=== PATIENT | male | born 1950 | race Caucasian/White ===

== ENCOUNTER 2016-07-26 22:06 | Emergency (ER) | payer MEDICARE, MEDICAID ==
[2016-07-26 22:15] VITALS: BP 168/102
--- NOTE | 2016-07-27 06:35 | ED ---
Queta العراقي Matthew, scribed for Raymond Spivey MD on 07/26/16 at 2314 . Lower Extremity - HPI Summary HPI Summary: A 65 y/o male presents to the ED with a rash on the right foot and toes since 5- 6 days ago. He regularly wears a plastic brace for right ankle weakness and believes the rash may be a result of constantly wearing the brace. The patient states that the rash has nearly doubled in size since this morning and affects his toes. Associated symptoms include itchiness and erythema. The rash is described as bands. The patient has PMHx of marfan's syndrome. - History of Current Complaint Chief Complaint: EDExtremityLower Stated Complaint: RIGHT FOOT COMPLAINT/RASH Hx Obtained From: Patient Onset/Duration: Still Present Severity Initially: Mild Severity Currently: Mild Pain Intensity: 0 Pain Scale Used: 0-10 Numeric Timing: Constant Associated Signs And Symptoms: Positive: Redness, Other - pruritic rash Able to Bear Weight: Yes - Allergies/Home Medications Allergies/Adverse Reactions: Allergies Allergy/AdvReac Type Severity Reaction Status Date / Time No Known Allergies Allergy Verified 04/08/16 09:25 PMH/Surg Hx/FS Hx/Imm Hx Endocrine/Hematology History: Denies: Hx Diabetes Cardiovascular History: Reports: Hx Angina, Hx Atrial Fibrillation, Hx Congenital Heart Disease - murmur, Hx Congestive Heart Failure, Hx Coronary Artery Disease, Hx Hypertension, Other Cardiovascular Problems/Disorders - cardiomyopathy Denies: Hx Pacemaker/ICD Respiratory History: Reports: Hx Asthma, Hx Pneumonia, Hx Pulmonary Embolism - possible, Other Respiratory Problems/Disorders - SOB D/T WEAKNESS GI History: Reports: Hx Hiatal Hernia, Other GI Disorders - abdominal hernia History: Reports: Hx Benign Prostatic Hyperplasia - maybe Musculoskeletal History: Reports: Hx Arthritis, Hx Back Problems, Other Musculoskeletal History - Marfan's Syndrome Sensory History: Reports: Hx Contacts or Glasses, Hx Macular Degeneration - lense implants x2 Denies: Hx Hearing Aid Opthamlomology History: Reports: Hx Contacts or Glasses, Hx Macular Degeneration - lense implants x2 Neurological History: Reports: Hx Headaches, Hx Nerve Disease, Other Neuro Impairments/Disorders - MARFAN'S SYNDROME Psychiatric History: Reports: Hx Anxiety, Hx Attention Deficit Hyperactivity Disorder, Hx Depression, Hx Panic Disorder - agorophobia, Hx Inpatient Treatment , Hx Community Mental Health Tx, Hx Bipolar Disorder - Surgical History Surgery Procedure, Year, and Place: left knee surgery, left wrist, abdominal hernia x2, cardiac cath 2009ish. dates unknown. STENTS X2 2008 Hx Anesthesia Reactions: No Infectious Disease History: No Infectious Disease History: Reports: Hx Shingles Denies: History Other Infectious Disease, Traveled Outside the [place] in Last 30 Days - Family History Known Family History: Positive: None, Cardiac Disease Family History: R & n/C - Social History Alcohol Use: Rare Alcohol Amount: 2 X YEAR Hx Substance Use: No Substance Use Type: Reports: None Hx Tobacco Use: Yes Smoking Status (MU): Former Smoker Type: Cigarettes Amount Used/How Often: 5-7/day Length of Time of Smoking/Using Tobacco: 16 years total Have You Smoked in the Last Year: No Review of Systems Constitutional: Negative Negative: Fever, Chills Eyes: Negative Negative: Erythema ENT: Negative Negative: Sore Throat Cardiovascular: Negative Negative: Chest Pain Respiratory: Negative Negative: Shortness Of Breath, Cough Gastrointestinal: Negative Negative: Abdominal Pain, Vomiting, Nausea Genitourinary: Negative Negative: dysuria, hematuria Musculoskeletal: Negative Negative: Myalgia Positive: Rash - Right Foot - between the toes and on the plantar aspect Neurological: Negative Psychological: Normal All Other Systems Reviewed And Are Negative: Yes Physical Exam Triage Information Reviewed: Yes Vital Signs On Initial Exam: Initial Vitals Temp Pulse Resp BP Pulse Ox 99.6 F 76 16 168/102 95 07/26/16 22:12 07/26/16 22:12 07/26/16 22:12 07/26/16 22:12 07/26/16 22:12 Vital Signs Reviewed: Yes Appearance: Positive: Well-Appearing, No Pain Distress Skin: Positive: Other - ERYTHEMA BETWEEN THE TOES OF THE RIGHT FOOT AND PLANTAR ASPECT; the foot is not warm touch Head/Face: Positive: Normal Head/Face Inspection Eyes: Positive: Conjunctiva Clear Neck: Positive: Supple, No Lymphadenopathy, Other: - Full ROM; No JVD Respiratory/Lung Sounds: Positive: Breath Sounds Present. Negative: Rales, Rhonchi, Stridor, Tracheal Deviation, Wheezes Cardiovascular: Positive: RRR, Other - Heart sounds normal; Intact distal pulses; The pedal pulses are 2+ and symmetric. Radial pulses are 2+ and symmetric. Negative: Murmur Abdomen Description: Positive: Nontender, Soft, Other: - No Rebound. Negative: Distended, Guarding Musculoskeletal: Negative: Edema Left, Edema Right Neurological: Positive: Alert, Oriented to Person Place, Time Psychiatric: Positive: Affect/Mood Appropriate Diagnostics - Vital Signs Vital Signs Temp Pulse Resp BP Pulse Ox 07/26/16 22:12 99.6 F 76 16 168/102 95 - Laboratory Lab Statement: Any lab studies that have been ordered have been reviewed, and results considered in the medical decision making process. Lower Extremity Course/Dx - Course Assessment/Plan: A 65 y/o male presents to the ED with a rash on the right foot and toes since 5-6 days ago. The patient had erythema between the toes and on the plantar aspect of the right foot; however the skin was not warm to touch. The patient will be discharged home on Clotrimazole and follow-up with his PCP. - Diagnoses Provider Diagnoses: Tinea manus Discharge - Discharge Plan Condition: Stable Disposition: HOME Prescriptions: Clotrimazole 1% CREAM* [Clotrimazole 1%*] 1 applic TOPICAL BID #1 tube Miconazole Nitrate (Topical) [Athletes Foot Powder] 2 % EX TID #1 jar Patient Education Materials: Skin Yeast Infection (ED) Referrals: Rey Panchal MD [Medical Doctor] - 2 Days Additional Instructions: Please follow-up with your primary care physician in 2 days. Return to the emergency department for changing or worsening symptoms The documentation as recorded by the Queta rosa Matthew accurately reflects the service I personally performed and the decisions made by , Raymond Spivey MD.
== END 2016-07-27 00:03 | disposition home or self-care (01) ==
LOC: ED 22:06
DX: B35.2 Tinea manuum (principal); R53.1 Weakness; Z87.891 Personal history of nicotine dependence; R21 Rash and other nonspecific skin eruption
CPT/HCPCS: 99282

== ENCOUNTER 2016-12-07 15:35 | Inpatient (IN) | payer MEDICARE, MEDICAID ==
[2016-12-07] MEDS ORDERED: Diltiazem IV* 5 MG/ML 5 ML VIAL (for loading dose/IV Push) (25 MG) IV SLOW PU ONE (16:18)
[2016-12-07] MEDS ORDERED: Aspirin Low Dose CHEW TAB* 81 MG PO ONE (16:21)
[2016-12-07] MEDS: NS 0.9% 1000 ML* 1,000 ML IV SCH ×2 (16:27→21:11)
[2016-12-07 16:35] LABS: Hematocrit 28 % (42-52); Hemoglobin 9.1 g/dl (14.0-18.0); Mean Corpuscular HGB Conc 33 g/dl (31-36); Mean Corpuscular Hemoglobin 29 pg (27-31); Mean Corpuscular Volume 86 fL (80-94); Mean Platelet Volume 8 um3 (7.4-10.4); Red Cell Distribution Width 16 % (10.5-15); White Blood Count 8.5 10^3/ul (3.5-10.8)
[2016-12-07 16:57] LABS: Troponin I 0.11 ng/mL (<0.04)
--- NOTE | 2016-12-07 17:00 | RAD ---
Indication: Fatigue, shortness of breath with exertion. Denies chest pain. Slight altered mental status. History of atrial fibrillation. Comparison: April 08, 2016 Technique: Upright AP 1635 hours Report: Mild linear subsegmental atelectasis at the RIGHT lung base. The lungs and pleural spaces are otherwise clear. Negative for pneumothorax. Negative for cardiomegaly. Unremarkable central pulmonary vasculature and mediastinal contours. IMPRESSION: Mild RIGHT basilar linear subsegmental atelectasis without additional acute finding.
[2016-12-07 17:02] LABS: Albumin 3.2 g/dL (3.2-5.2); BUN/Creatinine Ratio 17.6 (8-20); C Reactive Protein 121.34 mg/L (< 5.00); Calcium 8.4 mg/dL (8.6-10.3); EGFR African American 94.3 (>60); EGFR Non-African American 73.3 (>60); Globulin 2.6 g/dL (2-4); Magnesium 1.7 mg/dL (1.9-2.7); Potassium 3.8 mmol/L (3.5-5.0); Total Bilirubin 0.7 mg/dL (0.2-1.0); Total Protein 5.8 g/dL (6.4-8.9)
[2016-12-07 17:20] LABS: Urine Bacteria Absent (Absent); Urine Bilirubin Negative (Negative); Urine Glucose Negative (Negative); Urine Nitrite Positive (Negative)
[2016-12-07 17:42] LABS: TSH (Thyroid Stimulating Horm) 0.3 mcIU/mL (0.34-5.60)
--- NOTE | 2016-12-07 18:21 | ED ---
Adelfo العراقي Benjamin, scribed for Garrett Mcadams MD on 12/07/16 at 1628 . Shortness of Breath - HPI Summary HPI Summary: 66yo male c/o weakness and SOB upon exertion for several days. Drinking water seems to help. Weakness and SOB are still slightly present. Pt denies CP. Pt has hx of Afib, but is not on a blood thinner. PMHx also includes stents x2 and HTN. - History of Current Complaint Chief Complaint: EDWeakness Time Seen by Provider: 12/07/16 16:06 Hx Obtained From: Patient Onset/Duration: Gradual Onset, Lasting Days, Still Present Timing: Constant Current Severity: Mild Dyspnea At: Exertion Aggrevating Factors: Nothing Associated Signs & Symptoms: Negative - Allergy/Home Medications Allergies/Adverse Reactions: Allergies Allergy/AdvReac Type Severity Reaction Status Date / Time No Known Allergies Allergy Verified 12/07/16 16:27 PMH/Surg Hx/FS Hx/Imm Hx Endocrine/Hematology History: Denies: Hx Diabetes Cardiovascular History: Reports: Hx Angina, Hx Atrial Fibrillation, Hx Congenital Heart Disease - murmur, Hx Congestive Heart Failure, Hx Coronary Artery Disease, Hx Hypertension, Other Cardiovascular Problems/Disorders - cardiomyopathy Denies: Hx Pacemaker/ICD Respiratory History: Reports: Hx Asthma, Hx Pneumonia, Hx Pulmonary Embolism - possible, Other Respiratory Problems/Disorders - SOB D/T WEAKNESS GI History: Reports: Hx Hiatal Hernia, Other GI Disorders - abdominal hernia History: Reports: Hx Benign Prostatic Hyperplasia - maybe Musculoskeletal History: Reports: Hx Arthritis, Hx Back Problems, Other Musculoskeletal History - Marfan's Syndrome Sensory History: Reports: Hx Contacts or Glasses, Hx Macular Degeneration - lense implants x2 Denies: Hx Hearing Aid Opthamlomology History: Reports: Hx Contacts or Glasses, Hx Macular Degeneration - lense implants x2 Neurological History: Reports: Hx Headaches, Hx Nerve Disease, Other Neuro Impairments/Disorders - MARFAN'S SYNDROME Psychiatric History: Reports: Hx Anxiety, Hx Attention Deficit Hyperactivity Disorder, Hx Depression, Hx Panic Disorder - agorophobia, Hx Inpatient Treatment , Hx Community Mental Health Tx, Hx Bipolar Disorder - Surgical History Surgery Procedure, Year, and Place: left knee surgery, left wrist, abdominal hernia x2, cardiac cath 2009ish. dates unknown. STENTS X2 2008 Hx Anesthesia Reactions: No Infectious Disease History: No Infectious Disease History: Reports: Hx Shingles Denies: History Other Infectious Disease, Traveled Outside the [place] in Last 30 Days - Family History Known Family History: Positive: Cardiac Disease - Social History Occupation: Disabled Lives: Alone Alcohol Use: Rare Alcohol Amount: 2 X YEAR Hx Substance Use: No Substance Use Type: Reports: None Hx Tobacco Use: Yes Smoking Status (MU): Former Smoker Type: Cigarettes Amount Used/How Often: 5-7/day Length of Time of Smoking/Using Tobacco: 16 years total Have You Smoked in the Last Year: No Review of Systems Positive: Fatigue Eyes: Negative ENT: Negative Cardiovascular: Negative Negative: Chest Pain Positive: Shortness Of Breath Gastrointestinal: Negative Genitourinary: Negative Musculoskeletal: Negative Skin: Negative Positive: Weakness Psychological: Normal All Other Systems Reviewed And Are Negative: Yes Physical Exam Triage Information Reviewed: Yes Vital Signs On Initial Exam: Initial Vitals Temp Pulse Resp BP Pulse Ox 99.2 F 107 18 102/75 96 12/07/16 15:41 12/07/16 15:41 12/07/16 15:41 12/07/16 15:41 12/07/16 15:41 Vital Signs Reviewed: Yes Appearance: Positive: Well-Appearing, No Pain Distress, Well-Nourished Skin: Positive: Warm, Skin Color Reflects Adequate Perfusion, Dry Head/Face: Positive: Normal Head/Face Inspection Eyes: Positive: Normal ENT: Positive: Normal ENT inspection Neck: Positive: Supple, Nontender Respiratory/Lung Sounds: Positive: Clear to Auscultation, Breath Sounds Present Cardiovascular: Positive: IRR, Tachycardia Abdomen Description: Positive: Nontender, No Organomegaly, Soft Bowel Sounds: Positive: Present Musculoskeletal: Positive: Strength/ROM Intact. Negative: Pain @, Edema Left, Edema Right Neurological: Positive: Sensory/Motor Intact, Alert, Oriented to Person Place, Time, CN Intact II-III Psychiatric: Positive: Affect/Mood Appropriate - [place] Coma Scale Coma Scale Total: 15 Diagnostics - Vital Signs Vital Signs Temp Pulse Resp BP Pulse Ox 12/07/16 15:46 99.2 F 107 18 102/75 98 12/07/16 15:41 99.2 F 107 18 102/75 96 - Laboratory Lab Results: Lab Results 12/07/16 12/07/16 12/07/16 Range/Units 16:25 16:25 16:25 WBC 8.5 (3.5-10.8) 10^3/ul RBC 3.20 L (4.0-5.4) 10^6/ul Hgb 9.1 L (14.0-18.0) g/dl Hct 28 L (42-52) % MCV 86 (80-94) fL MCH 29 (27-31) pg MCHC 33 (31-36) g/dl RDW 16 H (10.5-15) % Plt Count 176 (150-450) 10^3/ul MPV 8 (7.4-10.4) um3 Neut % (Auto) 78.6 (38-83) % Lymph % (Auto) 11.7 L (25-47) % [place] % (Auto) 8.6 (1-9) % Eos % (Auto) 0.4 (0-6) % Baso % (Auto) 0.7 (0-2) % Absolute Neuts (auto) 6.7 (1.5-7.7) 10^3/ul Absolute Lymphs (auto) 1.0 (1.0-4.8) 10^3/ul Absolute Monos (auto) 0.7 (0-0.8) 10^3/ul Absolute Eos (auto) 0 (0-0.6) 10^3/ul Absolute Basos (auto) 0.1 (0-0.2) 10^3/ul Absolute Nucleated RBC 0 10^3/ul Nucleated RBC % 0 INR (Anticoag Therapy) 1.04 (0.89-1.11) APTT 29.1 (26.0-36.3) seconds D-Dimer, Quantitative 448 H (Less Than 230) ng/mL Sodium 134 (133-145) mmol/L Potassium 3.8 (3.5-5.0) mmol/L Chloride 100 L (101-111) mmol/L Carbon Dioxide 28 (22-32) mmol/L Anion Gap 6 (2-11) mmol/L BUN 18 (6-24) mg/dL Creatinine 1.02 (0.67-1.17) mg/dL Est GFR ( Amer) 94.3 (>60) Est GFR (Non-Af Amer) 73.3 (>60) BUN/Creatinine Ratio 17.6 (8-20) Glucose 89 (70-100) mg/dL Lactic Acid (0.5-2.0) mmol/L Calcium 8.4 L (8.6-10.3) mg/dL Magnesium 1.7 L (1.9-2.7) mg/dL Total Bilirubin 0.70 (0.2-1.0) mg/dL AST 16 (13-39) U/L ALT 8 (7-52) U/L Alkaline Phosphatase 67 (34-104) U/L Total Creatine Kinase 112 (10-223) U/L CK-MB (CK-2) 2.1 (0.6-6.3) ng/mL Troponin I 0.11 H* (<0.04) ng/mL C-Reactive Protein 121.34 H (< 5.00) mg/L B-Natriuretic Peptide ( - 100) pg/mL Total Protein 5.8 L (6.4-8.9) g/dL Albumin 3.2 (3.2-5.2) g/dL Globulin 2.6 (2-4) g/dL Albumin/Globulin Ratio 1.2 (1-3) Lipase 23 (11.0-82.0) U/L TSH 0.30 L (0.34-5.60) mcIU/mL Free T4 Pending Free T3 Pending Urine Color Urine Appearance Urine pH (5-9) Ur Specific [place] (1.010-1.030) Urine Protein (Negative) Urine Ketones (Negative) Urine Blood (Negative) Urine Nitrate (Negative) Urine Bilirubin (Negative) Urine Urobilinogen (Negative) Ur Leukocyte Esterase (Negative) Urine WBC (Auto) (Absent) Urine RBC (Auto) (Absent) Ur Squamous Epith Cells (Absent) Urine Bacteria (Absent) Urine Glucose (Negative) Urine Ascorbic Acid (Negative) 12/07/16 12/07/16 12/07/16 Range/Units 16:25 16:25 17:07 WBC (3.5-10.8) 10^3/ul RBC (4.0-5.4) 10^6/ul Hgb (14.0-18.0) g/dl Hct (42-52) % MCV (80-94) fL MCH (27-31) pg MCHC (31-36) g/dl RDW (10.5-15) % Plt Count (150-450) 10^3/ul MPV (7.4-10.4) um3 Neut % (Auto) (38-83) % Lymph % (Auto) (25-47) % [place] % (Auto) (1-9) % Eos % (Auto) (0-6) % Baso % (Auto) (0-2) % Absolute Neuts (auto) (1.5-7.7) 10^3/ul Absolute Lymphs (auto) (1.0-4.8) 10^3/ul Absolute Monos (auto) (0-0.8) 10^3/ul Absolute Eos (auto) (0-0.6) 10^3/ul Absolute Basos (auto) (0-0.2) 10^3/ul Absolute Nucleated RBC 10^3/ul Nucleated RBC % INR (Anticoag Therapy) (0.89-1.11) APTT (26.0-36.3) seconds D-Dimer, Quantitative (Less Than 230) ng/mL Sodium (133-145) mmol/L Potassium (3.5-5.0) mmol/L Chloride (101-111) mmol/L Carbon Dioxide (22-32) mmol/L Anion Gap (2-11) mmol/L BUN (6-24) mg/dL Creatinine (0.67-1.17) mg/dL Est GFR ( Amer) (>60) Est GFR (Non-Af Amer) (>60) BUN/Creatinine Ratio (8-20) Glucose (70-100) mg/dL Lactic Acid 1.4 (0.5-2.0) mmol/L Calcium (8.6-10.3) mg/dL Magnesium (1.9-2.7) mg/dL Total Bilirubin (0.2-1.0) mg/dL AST (13-39) U/L ALT (7-52) U/L Alkaline Phosphatase (34-104) U/L Total Creatine Kinase (10-223) U/L CK-MB (CK-2) (0.6-6.3) ng/mL Troponin I (<0.04) ng/mL C-Reactive Protein (< 5.00) mg/L B-Natriuretic Peptide 662 H ( - 100) pg/mL Total Protein (6.4-8.9) g/dL Albumin (3.2-5.2) g/dL Globulin (2-4) g/dL Albumin/Globulin Ratio (1-3) Lipase (11.0-82.0) U/L TSH (0.34-5.60) mcIU/mL Free T4 Free T3 Urine Color Yellow Urine Appearance Cloudy Urine pH 6.0 (5-9) Ur Specific [place] 1.017 (1.010-1.030) Urine Protein 2+(100 mg/dl) H (Negative) Urine Ketones Trace H (Negative) Urine Blood 3+ H (Negative) Urine Nitrate Positive H (Negative) Urine Bilirubin Negative (Negative) Urine Urobilinogen Negative (Negative) Ur Leukocyte Esterase 3+ H (Negative) Urine WBC (Auto) 3+(>20/hpf) H (Absent) Urine RBC (Auto) 3+(>10/hpf) H (Absent) Ur Squamous Epith Cells Present H (Absent) Urine Bacteria Absent (Absent) Urine Glucose Negative (Negative) Urine Ascorbic Acid * H (Negative) Result Diagrams: 12/07/16 16:25 12/07/16 16:25 Lab Statement: Any lab studies that have been ordered have been reviewed, and results considered in the medical decision making process. - Radiology CXR Xray Interpretation: No Acute Changes Radiology Interpretation Completed By: Radiologist - EKG 1601. Cardiac Rate: Tachycardia - 104bpm EKG Rhythm: Atrial Fibrillation - rapid afib ST Segment: Normal Ectopy: None EKG Interpretation: LVH 1558. Cardiac Rate: Tachycardia - 101bpm EKG Rhythm: Atrial Fibrillation - rapid afib ST Segment: Normal Ectopy: None EKG Interpretation: LVH Course/Dx - Course Course Of Treatment: NO CRITICAL CARE TIME. DISCUSSED RESULTS WITH PATIENT/ FAMILY. ADMIT HOSPITALIST STABLE. - Diagnoses Provider Diagnoses: Rapid atrial fibrillation, Dyspnea, Weakness, Elevated troponin Discharge - Discharge Plan Condition: Stable Disposition: ADMITTED TO [facility] Referrals: No Primary Care Phys,NOPCP [Primary Care Provider] - The documentation as recorded by the Adelfo rosa Benjamin accurately reflects the service I personally performed and the decisions made by , Garrett Mcadams MD.
[2016-12-07 18:53] LABS: Free T3 2.8 pg/mL (2.5-3.9)
[2016-12-07 18:54] LABS: Free T4 0.81 ng/dL (0.61-1.12)
[2016-12-07] MEDS ORDERED: Acetaminophen TAB* 325 MG PO PRN (19:00)
[2016-12-07] MEDS ORDERED: Iodixanol* (CONTRAST) 320 MG/ML 100 ML SDV IV ONE (19:32)
[2016-12-07] MEDS ORDERED: Metoprolol Tartrate TAB* 25 MG PO SCH (20:00)
--- NOTE | 2016-12-07 20:59 | RAD ---
INDICATION: Shortness of breath with exertion. History of atrial fibrillation. History of Marfan syndrome. COMPARISON: December 07, 2016 chest radiograph and August 28, 2014 CT. TECHNIQUE: Multidetector CT images were obtained from the lung apices to the upper abdomen with 84 mL Visipaque 320 IV contrast. Pulmonary angiogram protocol. Multiplanar reformation including with maximum intensity projection. REPORT: Mild RIGHT greater than LEFT dependent basilar subsegmental atelectasis. No suspicious focal pulmonary lesions. Negative for pleural effusions or pneumothorax. Normal size range prevascular mediastinal lymph nodes measuring up to 0.7 cm short axis. Negative for thoracic lymphadenopathy. Negative for cardiomegaly or pericardial effusion. Negative for aneurysm or dissection of the thoracic aorta which is remarkable for minimal atherosclerotic plaque. Motion artifact mildly limits the CT pulmonary angiogram. Nonetheless there are no compelling filling defects within the main to the segmental and subsegmental pulmonary arteries to indicate pulmonary embolism. Unremarkable Limited images through the upper abdomen. Multilevel mild thoracic degenerative spondylosis. No thoracic fractures or suspicious focal osseous lesions evident. IMPRESSION: 1. No evidence for pulmonary embolism. 2. Mild RIGHT greater than LEFT dependent subsegmental atelectasis. 3. No compelling CT evidence for pulmonary edema. 4. Negative for aneurysm or dissection of the thoracic aorta.
[2016-12-07] MEDS: Metoprolol Tartrate TAB* 25 MG PO SCH (22:08)
[2016-12-07] MEDS: CMCS: Dabigatran CAP(NF) 150 MG CAP PO SCH (22:08)
[2016-12-07] MEDS: Divalproex DR TAB(*) 500 MG PO SCH (22:08)
[2016-12-07] MEDS: QUEtiapine TAB* 100 MG PO SCH (22:09)
[2016-12-07] MEDS: Modafinil TAB* 100 MG PO SCH (23:00)
[2016-12-08] MEDS: Metoprolol Tartrate TAB* 25 MG PO SCH ×4 (03:04→20:49)
[2016-12-08] MEDS: NS 0.9% 1000 ML* 1,000 ML IV SCH (03:51)
--- NOTE | 2016-12-08 03:54 | HP ---
ADMISSION HISTORY AND PHYSICAL: DATE OF ADMISSION: 12/07/16 PRIMARY CARE PHYSICIAN: Previously Dr. Panchal; however, currently none. EXHIBIT BUILDER: Dr. Bagley in [place], [place]. CODE STATUS: Full. MOLST completed. SOURCE OF INFORMATION: History was obtained from interview with the patient and his , review of past medical records. RELIABILITY: From patient and his are fair to poor. Records are excellent. CHIEF COMPLAINT: Shortness of breath. HISTORY OF PRESENT ILLNESS: This is a 66-year-old man with past medical history of ischemic cardiomyopathy, last checked EF 25% to 30%, atrial flutter, status post ablation in 1999, CAD status post 2 stents, last in 2007, who has been in usual state of health until approximately 1 week ago, started noticing it was more difficult to climb stairs, becoming shortness of breath. He lives in a 3-story house with two flights to enter the house, still able to ascend the stairs; however, noticed that he would becoming increasingly short of breath without chest pain and no palpitations. He noticed that he felt better if he drank a large cup of water; however, only did so on one occasion. He denied any orthopnea or PND over the last week. No increasing lower extremity edema. The night prior, the shortness of breath was consistent not increasing over the last week. The night prior to the presentation, he woke up in the middle of the night with pain in his neck, fell which was not unusual. He falls approximately 5 to 10 times per year and landed on the floor. His activated EMS and asked for the police as well as EMS because she was concerned that he could potentially be manic before evaluation. 911 was dispatched the police and not EMS at the scene, the patient refused all medical care. He was put back in bed and went back to sleep. He was seen today at [facility] where he was noted to have increasingly labored breathing. They recommended he proceed for further evaluation. However, he was brought home by a friend. At home, heard that he was referred for further evaluation, also agreed with increasing shortness of breath and brought him to the emergency room where he was found to be in atrial fibrillation with rapid ventricular rate peak checked was 115 in the emergency room. When seen by this author, he denied shortness of breath at rest, but did endorse pleuritic chest pain. His medication administration is erratic and he does frequently miss medications, although there have been no changes or more missed doses than usual. No alcohol consumption. PAST MEDICAL HISTORY: Vestibular neuronitis. Past history of UTI. History of CAD, 2 stents in 2007. Ischemic cardiomyopathy, EF 25% to 50%, bipolar disease , hypertension, ADHD, Marfan disorder, hernia repair, wrist surgery, leg surgery . MEDICATIONS: Reconciled. 1. Ramipril 5 mg daily. 2. Seroquel 100 mg in the evening. 3. Provigil 200 mg twice daily. 4. Toprol-XL 100 mg daily. 5. Lorazepam 1 mg at bedtime as needed. 6. Dumas 5/325 one to two tabs every 6 hours as needed for pain. 7. Depakote 500 mg twice daily. 8. Digoxin 0.125 mg in the morning. 9. Aspirin 81 mg daily. 10. Acetaminophen 650 mg every 4 hours as needed for pain. ALLERGIES: No known drug allergies. FAMILY HISTORY: Mother with cancer of colon. Father with CAD and [place] at age 66. SOCIAL HISTORY: Smoked regularly until 15 years prior packs per day. Rare alcohol. No illicits. Lives with his . REVIEW OF SYSTEMS: As per HPI, otherwise, all other systems negative. PHYSICAL EXAMINATION GENERAL: Lying approximately 30 degrees in bed, eating a tuna fish sandwich, interactive, talks in full sentences. No apparent distress. VITAL SIGNS: In the emergency room, 137/94, heart rate 100 when seen by this author, O2 93% on room air. Respiratory rate is 16. T-max in the emergency room is 99.2. HEENT: Oropharynx is clear. He has moist mucous membranes. Sclarea anicteric. NECK: He has elevated JVD to the angle of his jaw. No cervical lymphadenopathy. LUNGS: Clear except for rales in his right base. HEART: Has irregularly irregular heart rate. Tachycardic. No murmurs, rubs, or gallops. ABDOMEN: Soft, nontender, nondistended. EXTREMITIES: Warm and well perfused. He has trace lower extremity edema bilaterally. NEURO: He is alert and oriented x3. His cranial nerves are intact. LABORATORY DATA: Labs were reviewed, notable for hemoglobin of 9.1. D-dimer of 448, BUN and creatinine 18 and 1.02. Calcium of 1.7, troponin I of 0.11. BNP of 662. TSH 0.3, free T4 0.8. Free T3 2.8. Data reviewed: EKG: Atrial flutter, rapid ventricular rate, left axis, good R wave progression, T wave inversion in V4 through V6 with similar to November except for T-wave inversion in V4, which is new. Chest x-ray impression: Mild bibasilar linear subsegmental atelectasis without additional acute findings. ASSESSMENT AND PLAN: This is a 66-year-old man with past medical history of coronary artery disease with 2 stents, Marfan disorder, atrial flutter, status post ablation, ischemic cardiomyopathy presenting to the hospital with shortness of breath, found in atrial fibrillation with rapid ventricular response as well as elevated BNP, D-dimer and subsegmental atelectasis in his right lower lobe. 1. Shortness of breath. Possibilities include uncontrolled rate over the last week, worsening heart failure, congestive heart failure exacerbation or pulmonary embolism. Favor atrial fibrillation or pulmonary embolism at this time. Difficult to differentiate. However, in the setting of the elevated troponin as well as pleuritic chest pain, we will check CT of the chest to rule out pulmonary embolism. Restart metoprolol 100 mg XL in the morning with 25 mg q.6 hours starting this evening. May need breakthrough IV if heart rate becomes uncontrolled. 2. Elevated troponin. Again, possibly ischemic versus demand in the heart failure with atrial fibrillation. We will trend troponins, already received aspirin. Additional testing including stress based on results of troponin trend as well as heart rate control. 3. Atrial flutter. Control as in #1 with additional Toprol but now with hold parameters. The patient was previously on Xarelto, self discontinued. He is willing to start Pradaxa. He does have multiple falls per year; however, his medication administration is sporadic, will not benefit from Coumadin. For this reason, we have agreed on trial of Pradaxa. He will remain n.p.o. after midnight should he need DIVYA and cardioversion tomorrow. 4. Sick euthyroid syndrome. Decreased TSH, normal T3 and T4. 5. Systolic and diastolic heart failure. Currently, takes no diuretics. We will not start at this time; however, consider based on progress and improvement in shortness of breath. 6. Coronary artery disease. Continue aspirin and Toprol and lisinopril. 7. Bipolar disorder. He is on Depakote. 8. Attention deficit hyperactivity disorder. Continue Provigil, although notable that this may contribute to uncontrolled atrial flutter. 9. DVT prophylaxis. Pradaxa. 10. Code status is full. Completed MOLST with the patient and his / healthcare proxy. [id number]/CPS #: [id number] JANEY
[2016-12-08 05:56] LABS: Hematocrit 26 % (42-52); Hemoglobin 8.4 g/dl (14.0-18.0); Mean Corpuscular HGB Conc 32 g/dl (31-36); Mean Corpuscular Hemoglobin 28 pg (27-31); Mean Corpuscular Volume 87 fL (80-94); Mean Platelet Volume 8 um3 (7.4-10.4); Red Blood Count 2.99 10^6/ul (4.0-5.4); Red Cell Distribution Width 16 % (10.5-15); White Blood Count 8.2 10^3/ul (3.5-10.8)
[2016-12-08 06:20] LABS: EGFR African American 103.6 (>60); EGFR Non-African American 80.5 (>60); Potassium 3.3 mmol/L (3.5-5.0)
[2016-12-08 06:47] LABS: Troponin I 0.11 ng/mL (<0.04)
[2016-12-08] MEDS ORDERED: Potassium Chlor TAB* 20 MEQ TAB.ER PO ONE (08:11)
[2016-12-08] MEDS: Divalproex DR TAB(*) 500 MG PO SCH ×2 (08:31→20:49)
[2016-12-08] MEDS: Modafinil TAB* 100 MG PO SCH (08:31)
[2016-12-08] MEDS: Metoprolol Succinate XL TAB* 100 MG PO SCH (08:31)
[2016-12-08] MEDS: Digoxin TAB* 0.125 MG PO SCH (08:31)
[2016-12-08] MEDS: Aspirin EC Low Dose* 81 MG TAB.EC PO SCH (08:31)
[2016-12-08] MEDS: Ramipril CAP* 5 MG PO SCH (08:31)
[2016-12-08] MEDS: CMCS: Dabigatran CAP(NF) 150 MG CAP PO SCH ×2 (08:32→20:49)
[2016-12-08] MEDS: HYDROcodone/ACETAMIN 5-325 MG* 1 TAB PO PRN ×2 (09:10→22:34)
--- NOTE | 2016-12-08 12:32 | ECHO ---
Patient: MO GARCIA [facility] Rec#: [id number] : 1950 Date: 12/08/2016 Age: 66y Height: 187.96 cm / 74.0 in Weight: 91.17 kg / 200.9 lbs Sex: M BSA: 2.18 Room#: 437 Admit Date#: 12/07/2016 Type: Inpatient Referring: Jame Chiu MD Reading: Cuba Napoles MD Sign Painter Helper: Dana MaldonadoRDCS,RDMS Transthoracic Echocardiogram Indication: Afib BP: 131/88 HR: 97 Rhythm: A-Fib Findings History: Ischemic cardiomyopathy, CAD, PCI, HTN, AFlutter Technical Comments: The study quality is good. Completed 1210 Left Ventricle: The left ventricular chamber size is normal. Mild to moderate concentric left ventricular hypertrophy is observed. There is global hypokinesis of the left ventricle with minor regional variation. There is severely decreased left ventricular systolic function. The estimated ejection fraction is 25-30%. The assessment of diastolic function is non-diagnostic. Left Atrium: The left atrium is moderate to severely dilated. Right Ventricle: The right ventricular cavity size is normal. The right ventricular global systolic function is low normal. Right Atrium: The right atrium is mild to moderately dilated. Aortic Valve: The aortic valve is trileaflet. The aortic valve leaflets are mildly thickened. There is a trace of aortic regurgitation. There is no evidence of aortic stenosis. Mitral Valve: The mitral valve leaflets are mildly thickened. There is trace to mild mitral regurgitation. There is no evidence of mitral stenosis. Tricuspid Valve: The tricuspid valve leaflets are normal. There is mild tricuspid regurgitation. Unable to estimate the right ventricular systolic pressure. Pulmonic Valve: The pulmonic valve appears normal. There is trace to mild pulmonic regurgitation. Pericardium: There is no significant pericardial effusion. Aorta: There is mild dilatation of the ascending aorta. There is mild dilatation of the aortic arch. There is no dilation of the aortic root. Pulmonary Artery: The main pulmonary artery is not well visualized. Venous: The inferior vena cava is dilated. There is an approximate 50% respiratory change in the inferior vena cava dimension. Summary: There are no significant changes when compared to the previous study done on 09/27/15 Conclusions Mild to moderate concentric left ventricular hypertrophy is observed. There is global hypokinesis of the left ventricle with minor regional variation. There is severely decreased left ventricular systolic function. The estimated ejection fraction is 25-30%. The right ventricular global systolic function is low normal. There is a trace of aortic regurgitation. There is trace to mild mitral regurgitation. There is mild tricuspid regurgitation. Unable to estimate the right ventricular systolic pressure. There is no significant pericardial effusion. Measurements Name Value Normal Range RVIDd (AP) 2D 3.6 cm (0.9 - 2.6) RAd ISD 4CH 5.8 cm (3.4 - 4.9) RA (A4C)W 4.8 cm (2.9 - 4.6) IVSd (2D) 1.5 cm (0.6 - 1) LVPWd (2D) 1.3 cm (0.6 - 1) LVIDd (2D) 5.2 cm (3.6 - 5.4) LVIDs (2D) 4.3 cm - LV FS (2D) 18 % (25 - 45) Aortic Annulus 2.4 cm (1.4 - 2.6) Ao root diameter (2D) 3.4 cm (2.1 - 3.5) Ascending Ao 3.7 cm (2.1 - 3.4) Aortic arch 3.9 cm (1.8 - 3.4) LA dimension (AP) 2D 5.1 cm (2.3 - 3.8) LAd ISD 4CH 6.4 cm (2.9 - 5.3) LA ISD 4CH W 5.7 cm (2.5 - 4.5) Name Value Normal Range LA ESV SP 4CH (A/L) 144.19 ml - LA ESV SP 2CH (A/L) 110.18 ml - LA ESV BP (A/L) 126.64 ml - LA ESV BP (A/L) index 58 ml/m2 - LA ESV SP 4CH (MOD) 135.2 ml - LA ESV SP 2CH (MOD) 101.45 ml - Name Value Normal Range MV E-wave Vmax 0.9 m/sec - MV deceleration time 168 msec - LV lateral e' Vmax 0.12 m/sec - LV E:e' lateral ratio 7.5 ratio - Name Value Normal Range AV Vmax 1.2 m/sec - AV peak gradient 6 mmHg - LVOT Vmax 0.9 m/sec - LVOT peak gradient 3.2 mmHg - KEVIN Vmax 0.5 m/sec - Name Value Normal Range RAP 8 mmHg - IVC diameter 2.5 cm - Name Value Normal Range PV Vmax 0.8 m/sec - PV peak gradient 2.6 mmHg -
--- NOTE | 2016-12-08 17:10 | PN ---
Subjective Date of Service: 12/08/16 Interval History: Denies SOB. Walked with nursing and O2sat down to 89% on RA. HR this evening 90s. No chest discomfort Objective Active Medications: Acetaminophen (Tylenol Tab*) 650 mg PO Q4H PRN PRN Reason: FEVER/PAIN Hydrocodone Bitart/Acetaminophen ([place] 5-325 Tab*) 1 tab PO Q6H PRN PRN Reason: PAIN Last Admin: 12/08/16 09:10 Dose: 1 tab Aspirin (Aspirin Ec Low Dose*) 81 mg PO DAILY [facility] Last Admin: 12/08/16 08:31 Dose: 81 mg Cephalexin HCl (Keflex Cap*) 500 mg PO QID [facility] Dabigatran (Pradaxa Cap(Nf)) 150 mg PO BID [facility] Last Admin: 12/08/16 08:32 Dose: 150 mg Digoxin (Lanoxin Tab*) 0.125 mg PO 0900 [facility] Last Admin: 12/08/16 08:31 Dose: 0.125 mg Divalproex Sodium (Depakote Dr Tab(*)) 500 mg PO BID [facility] Last Admin: 12/08/16 08:31 Dose: 500 mg Lorazepam (Ativan Tab(*)) 1 mg PO BEDTIME PRN PRN Reason: SLEEP Metoprolol Succinate (Toprol Xl Tab*) 100 mg PO DAILY [facility] Last Admin: 12/08/16 08:31 Dose: 100 mg Metoprolol Tartrate (Lopressor Tab*) 25 mg PO Q6H [facility] Last Admin: 12/08/16 15:37 Dose: 25 mg Modafinil (Provigil Tab*) 200 mg PO 0900 [facility] Last Admin: 12/08/16 08:31 Dose: 200 mg Quetiapine Fumarate (Seroquel Tab*) 100 mg PO BEDTIME [facility] Last Admin: 12/07/16 22:09 Dose: 100 mg Ramipril (Altace Cap*) 5 mg PO DAILY [facility] Last Admin: 12/08/16 08:31 Dose: 5 mg Vital Signs 12/07/16 12/07/16 12/07/16 19:05 19:19 19:45 Temperature Pulse Rate 81 86 Respiratory Rate Blood Pressure 82/66 (mmHg) O2 Sat by Pulse 90 91 Oximetry 12/07/16 12/07/16 12/08/16 20:00 20:45 00:07 Temperature 98.5 F 100.7 F Pulse Rate 104 92 Respiratory 26 20 Rate Blood Pressure 108/64 145/80 123/69 (mmHg) O2 Sat by Pulse 96 90 Oximetry 12/08/16 12/08/16 12/08/16 03:44 04:05 07:18 Temperature 98.6 F 98.4 F Pulse Rate 97 97 Respiratory 20 32 Rate Blood Pressure 127/67 131/88 (mmHg) O2 Sat by Pulse 88 92 99 Oximetry 12/08/16 12/08/16 12/08/16 09:10 11:10 11:11 Temperature 97.8 F Pulse Rate 87 Respiratory 24 22 26 Rate Blood Pressure 153/95 (mmHg) O2 Sat by Pulse 96 Oximetry 12/08/16 12/08/16 15:05 15:34 Temperature 98.5 F Pulse Rate 94 Respiratory 18 Rate Blood Pressure 125/71 (mmHg) O2 Sat by Pulse 96 Oximetry Oxygen Devices in Use Now: None Appearance: NAD Eyes: No Scleral Icterus, PERRLA Ears/Nose/Mouth/Throat: Clear Oropharnyx, Mucous Membranes Moist Neck: - - JVD to angle of the jaw Respiratory: Symmetrical Chest Expansion and Respiratory Effort, Clear to Auscultation Cardiovascular: - - IRIR Abdominal: NL Sounds; No Tenderness; No Distention, No Hepatosplenomegaly Lymphatic: No Cervical Adenopathy Extremities: No Edema Skin: No Rash or Ulcers Neurological: Alert and Oriented x 3 Result Diagrams: 12/08/16 05:19 12/08/16 05:19 Additional Lab and Data: Lab Results 12/07/16 12/07/16 12/07/16 Range/Units 16:25 16:25 16:25 WBC 8.5 (3.5-10.8) 10^3/ul RBC 3.20 L (4.0-5.4) 10^6/ul Hgb 9.1 L (14.0-18.0) g/dl Hct 28 L (42-52) % MCV 86 (80-94) fL MCH 29 (27-31) pg MCHC 33 (31-36) g/dl RDW 16 H (10.5-15) % Plt Count 176 (150-450) 10^3/ul MPV 8 (7.4-10.4) um3 Neut % (Auto) 78.6 (38-83) % Lymph % (Auto) 11.7 L (25-47) % Coke % (Auto) 8.6 (1-9) % Eos % (Auto) 0.4 (0-6) % Baso % (Auto) 0.7 (0-2) % Absolute Neuts (auto) 6.7 (1.5-7.7) 10^3/ul Absolute Lymphs (auto) 1.0 (1.0-4.8) 10^3/ul Absolute Monos (auto) 0.7 (0-0.8) 10^3/ul Absolute Eos (auto) 0 (0-0.6) 10^3/ul Absolute Basos (auto) 0.1 (0-0.2) 10^3/ul Absolute Nucleated RBC 0 10^3/ul Nucleated RBC % 0 INR (Anticoag Therapy) 1.04 (0.89-1.11) APTT 29.1 (26.0-36.3) seconds D-Dimer, Quantitative 448 H (Less Than 230) ng/mL Sodium 134 (133-145) mmol/L Potassium 3.8 (3.5-5.0) mmol/L Chloride 100 L (101-111) mmol/L Carbon Dioxide 28 (22-32) mmol/L Anion Gap 6 (2-11) mmol/L BUN 18 (6-24) mg/dL Creatinine 1.02 (0.67-1.17) mg/dL Est GFR ( Amer) 94.3 (>60) Est GFR (Non-Af Amer) 73.3 (>60) BUN/Creatinine Ratio 17.6 (8-20) Glucose 89 (70-100) mg/dL Lactic Acid (0.5-2.0) mmol/L Calcium 8.4 L (8.6-10.3) mg/dL Magnesium 1.7 L (1.9-2.7) mg/dL Total Bilirubin 0.70 (0.2-1.0) mg/dL AST 16 (13-39) U/L ALT 8 (7-52) U/L Alkaline Phosphatase 67 (34-104) U/L Total Creatine Kinase 112 (10-223) U/L CK-MB (CK-2) 2.1 (0.6-6.3) ng/mL Troponin I 0.11 H* (<0.04) ng/mL C-Reactive Protein 121.34 H (< 5.00) mg/L B-Natriuretic Peptide ( - 100) pg/mL Total Protein 5.8 L (6.4-8.9) g/dL Albumin 3.2 (3.2-5.2) g/dL Globulin 2.6 (2-4) g/dL Albumin/Globulin Ratio 1.2 (1-3) Lipase 23 (11.0-82.0) U/L TSH 0.30 L (0.34-5.60) mcIU/mL Free T4 Pending Free T3 Pending Urine Color Urine Appearance Urine pH (5-9) Ur Specific [place] (1.010-1.030) Urine Protein (Negative) Urine Ketones (Negative) Urine Blood (Negative) Urine Nitrate (Negative) Urine Bilirubin (Negative) Urine Urobilinogen (Negative) Ur Leukocyte Esterase (Negative) Urine WBC (Auto) (Absent) Urine RBC (Auto) (Absent) Ur Squamous Epith Cells (Absent) Urine Bacteria (Absent) Urine Glucose (Negative) Urine Ascorbic Acid (Negative) 12/07/16 12/07/16 12/07/16 Range/Units 16:25 16:25 17:07 WBC (3.5-10.8) 10^3/ul RBC (4.0-5.4) 10^6/ul Hgb (14.0-18.0) g/dl Hct (42-52) % MCV (80-94) fL MCH (27-31) pg MCHC (31-36) g/dl RDW (10.5-15) % Plt Count (150-450) 10^3/ul MPV (7.4-10.4) um3 Neut % (Auto) (38-83) % Lymph % (Auto) (25-47) % Coke % (Auto) (1-9) % Eos % (Auto) (0-6) % Baso % (Auto) (0-2) % Absolute Neuts (auto) (1.5-7.7) 10^3/ul Absolute Lymphs (auto) (1.0-4.8) 10^3/ul Absolute Monos (auto) (0-0.8) 10^3/ul Absolute Eos (auto) (0-0.6) 10^3/ul Absolute Basos (auto) (0-0.2) 10^3/ul Absolute Nucleated RBC 10^3/ul Nucleated RBC % INR (Anticoag Therapy) (0.89-1.11) APTT (26.0-36.3) seconds D-Dimer, Quantitative (Less Than 230) ng/mL Sodium (133-145) mmol/L Potassium (3.5-5.0) mmol/L Chloride (101-111) mmol/L Carbon Dioxide (22-32) mmol/L Anion Gap (2-11) mmol/L BUN (6-24) mg/dL Creatinine (0.67-1.17) mg/dL Est GFR ( Amer) (>60) Est GFR (Non-Af Amer) (>60) BUN/Creatinine Ratio (8-20) Glucose (70-100) mg/dL Lactic Acid 1.4 (0.5-2.0) mmol/L Calcium (8.6-10.3) mg/dL Magnesium (1.9-2.7) mg/dL Total Bilirubin (0.2-1.0) mg/dL AST (13-39) U/L ALT (7-52) U/L Alkaline Phosphatase (34-104) U/L Total Creatine Kinase (10-223) U/L CK-MB (CK-2) (0.6-6.3) ng/mL Troponin I (<0.04) ng/mL C-Reactive Protein (< 5.00) mg/L B-Natriuretic Peptide 662 H ( - 100) pg/mL Total Protein (6.4-8.9) g/dL Albumin (3.2-5.2) g/dL Globulin (2-4) g/dL Albumin/Globulin Ratio (1-3) Lipase (11.0-82.0) U/L TSH (0.34-5.60) mcIU/mL Free T4 Free T3 Urine Color Yellow Urine Appearance Cloudy Urine pH 6.0 (5-9) Ur Specific [place] 1.017 (1.010-1.030) Urine Protein 2+(100 mg/dl) H (Negative) Urine Ketones Trace H (Negative) Urine Blood 3+ H (Negative) Urine Nitrate Positive H (Negative) Urine Bilirubin Negative (Negative) Urine Urobilinogen Negative (Negative) Ur Leukocyte Esterase 3+ H (Negative) Urine WBC (Auto) 3+(>20/hpf) H (Absent) Urine RBC (Auto) 3+(>10/hpf) H (Absent) Ur Squamous Epith Cells Present H (Absent) Urine Bacteria Absent (Absent) Urine Glucose Negative (Negative) Urine Ascorbic Acid * H (Negative) Assess/Plan/Problems-Billing Assessment: 66 yo M h/o ischemic cardiomyopathy (ef 25-30%), CAD, aflutter s/p ablation ( 1999), p/w increased SOB x 1 week - Patient Problems (1) Shortness of breath Comment: Mostly resolved today with better HR control c/w increased toprol and monitor on telemetry make npo and discuss potential cardioversion although may be poor candidate ( poor med follow up, poor med adherence, severe CHF with dialated LA/RA) incentive spirometry and mobilize 2/2 atalectasis (2) Congestive heart failure Comment: chronic - combined systolic/diastolic on no diuretics monitor (3) Bipolar 1 disorder Comment: seroquel ativan PRN bedtime (4) CAD (coronary artery disease) Comment: metoprolol, ramapril, ASA (5) Troponin I above reference range Comment: suspect demand in setting of RVR TTE w/out RWMA (6) Afib Comment: metoprolol XL and tartrate digoxin check dig level tomorrow pradaxa
[2016-12-08] MEDS: QUEtiapine TAB* 100 MG PO SCH (20:49)
[2016-12-08] MEDS: Cephalexin CAP* 500 MG PO SCH (20:49)
[2016-12-08] MEDS: LORazepam TAB(*) 1 MG PO PRN (22:37)
[2016-12-08] MEDS ORDERED: Metoprolol Tartrate IV* 1 MG/ML 5 ML VIAL IV ONE (23:00)
[2016-12-08] MEDS ORDERED: LORazepam INJ* 2 MG/ML 1 ML VIAL IV PUSH ONE (23:39)
[2016-12-09] MEDS: Morphine INJ* 2 MG/ML 1 ML SYRINGE IV PRN ×2 (00:22→07:07)
[2016-12-09 00:30] LABS: Hematocrit 29 % (42-52); Hemoglobin 9.3 g/dl (14.0-18.0); Mean Corpuscular HGB Conc 32 g/dl (31-36); Mean Corpuscular Hemoglobin 28 pg (27-31); Mean Corpuscular Volume 87 fL (80-94); Mean Platelet Volume 8 um3 (7.4-10.4); Red Blood Count 3.31 10^6/ul (4.0-5.4); Red Cell Distribution Width 16 % (10.5-15); White Blood Count 8.9 10^3/ul (3.5-10.8)
[2016-12-09 00:45] LABS: BUN/Creatinine Ratio 20.2 (8-20); Calcium 8.3 mg/dL (8.6-10.3); EGFR African American 103.6 (>60); EGFR Non-African American 80.5 (>60); Potassium 4.1 mmol/L (3.5-5.0)
[2016-12-09 00:48] LABS: Troponin I 0.1 ng/mL (<0.04)
[2016-12-09] MEDS: Diltiazem DRIP* 100 MG/100 ML ADDV.BAG IVPB SCH ×2 (02:03→11:45)
[2016-12-09] MEDS: Metoprolol Tartrate TAB* 25 MG PO SCH ×3 (04:22→14:40)
[2016-12-09 06:55] LABS: BUN/Creatinine Ratio 17.2 (8-20); Calcium 8.4 mg/dL (8.6-10.3); EGFR African American 104.9 (>60); EGFR Non-African American 81.5 (>60); Magnesium 1.9 mg/dL (1.9-2.7); Potassium 3.8 mmol/L (3.5-5.0)
[2016-12-09 07:01] LABS: Digoxin 0.3 ng/ml (0.8-2.0)
--- NOTE | 2016-12-09 07:37 | RAD ---
HISTORY: Atrial flutter COMPARISONS: December 07, 2016 VIEWS:1: Single frontal portable view of the chest at 12:20 AM FINDINGS: LINES AND TUBES: None. CARDIOMEDIASTINAL SILHOUETTE: The cardiac silhouette is mildly enlarged. The cardiomediastinal silhouette is otherwise normal for portable technique. PLEURA: The costophrenic angles are sharp. No pleural abnormalities are noted. LUNG PARENCHYMA: There is a diffuse reticular pattern with indistinct pulmonary vessels. ABDOMEN: The upper abdomen is clear. There is no subphrenic gas. BONES AND SOFT TISSUES: No bone or soft tissue abnormalities are noted. IMPRESSION: PULMONARY INTERSTITIAL EDEMA
[2016-12-09] MEDS ORDERED: Furosemide IV* 10 MG/ML VIAL (40 MG) IV SLOW PU ONE (08:14)
[2016-12-09] MEDS ORDERED: Digoxin IV* 0.5 MG/2 ML AMP (0.25 MG/ML) IV SLOW PU ONE (08:40)
[2016-12-09] MEDS: Modafinil TAB* 100 MG PO SCH (09:10)
[2016-12-09] MEDS: Divalproex DR TAB(*) 500 MG PO SCH ×2 (09:10→20:56)
[2016-12-09] MEDS: Cephalexin CAP* 500 MG PO SCH ×4 (09:10→20:56)
[2016-12-09] MEDS: Aspirin EC Low Dose* 81 MG TAB.EC PO SCH (09:10)
[2016-12-09] MEDS: Digoxin TAB* 0.125 MG PO SCH (09:10)
[2016-12-09] MEDS: CMCS: Dabigatran CAP(NF) 150 MG CAP PO SCH ×2 (09:10→21:02)
[2016-12-09] MEDS: Metoprolol Succinate XL TAB* 100 MG PO SCH (09:10)
[2016-12-09] MEDS: Ramipril CAP* 5 MG PO SCH (09:10)
--- NOTE | 2016-12-09 11:20 | RAD ---
HISTORY: Atrial flutter COMPARISONS: December 08, 2016 VIEWS: 2: Frontal and lateral views of the chest. FINDINGS: CARDIOMEDIASTINAL SILHOUETTE: The cardiomediastinal silhouette is normal. BETHEL: The bethel are normal. PLEURA: The costophrenic angles are sharp. No pleural abnormalities are noted. LUNG PARENCHYMA: There is a diffuse pattern of reticular opacification. There is more focal confluent alveolar opacification of the right upper lung ABDOMEN: The upper abdomen is clear. There is no subphrenic gas. BONES AND SOFT TISSUES: No bone or soft tissue abnormalities are noted. OTHER: None. IMPRESSION: PULMONARY INTERSTITIAL EDEMA WITH MORE FOCAL CONSOLIDATION OF THE RIGHT UPPER LUNG
[2016-12-09] MEDS ORDERED: Regadenoson* 0.4 MG/5 ML SYRINGE ONE (12:14)
--- NOTE | 2016-12-09 14:40 | RAD ---
Edited for charges. INDICATION: Increased troponins known cardiac disease. COMPARISON: Comparison is made with a prior myocardial perfusion stress study from September 30, 2015. Technique: A single day myocardial perfusion stress study was performed. Initially the resting study was performed. The patient was given an intravenous injection of 10.2 mCi of technetium 99m tetrofosmin and and the heart was imaged in multiple projections. The patient returned later in the day and under the direction of Dr. Saha, the patient was given intervenous injection of Lexiscan. Subsequently the patient was given intravenous injection of 25.2 mCi of technetium 99m tetrofosmin and the heart was imaged in multiple projections. Images were reconstructed in the axial, sagittal and coronal planes and in a 3- D format. FINDINGS: There is global decreased left ventricular wall motion. The left ventricle ejection fraction is calculated to be 43%. At the time of the prior study the left ventricular ejection fraction was 28 %. Review of the images demonstrates a small area of decreased activity present in the septum on the post pharmacologic stress images which appears normal on the resting set of images most consistent with ischemic change. This appears similar to the prior study. IMPRESSION: 1. FINDINGS SUGGESTIVE OF A SMALL AREA OF ISCHEMIA IN THE SEPTUM UNCHANGED FROM THE PRIOR EXAM. 2. DECREASED LEFT VENTRICULAR EJECTION FRACTION CALCULATED TO BE 43% WHICH HAS IMPROVED FROM THE PRIOR EXAM. ASSESSMENT: Intermediate risk. Based on imaging criteria from ACC/AHA 2002 Guideline Update for the Management of Patients With Chronic Stable Angina Table 23. Noninvasive Risk Stratification. [facility]
[2016-12-09] MEDS ORDERED: Diltiazem DRIP* 100 MG/100 ML ADDV.BAG IVPB SCH (14:59)
--- NOTE | 2016-12-09 15:11 | PN ---
Subjective Date of Service: 12/09/16 Interval History: Seen with at bedside Events from overnight reviewed. Increased HR to 150s, placed on dilt gtt at 10 mg/hr This AM more SOB. Repeat CXR shows edema vs consolidation Pt denies SOB although has required titration up on NC O2 from 0 to 4L to maintain Sats >90 Objective Active Medications: Acetaminophen (Tylenol Tab*) 650 mg PO Q4H PRN PRN Reason: FEVER/PAIN Hydrocodone Bitart/Acetaminophen ([place] 5-325 Tab*) 1 tab PO Q6H PRN PRN Reason: PAIN Last Admin: 12/08/16 22:34 Dose: 1 tab Aspirin (Aspirin Ec Low Dose*) 81 mg PO DAILY [facility] Last Admin: 12/09/16 09:10 Dose: 81 mg Cephalexin HCl (Keflex Cap*) 500 mg PO QID [facility] Last Admin: 12/09/16 14:39 Dose: 500 mg Dabigatran (Pradaxa Cap(Nf)) 150 mg PO BID [facility] Last Admin: 12/09/16 09:10 Dose: 150 mg Digoxin (Lanoxin Tab*) 0.125 mg PO 0900 [facility] Last Admin: 12/09/16 09:10 Dose: 0.125 mg Divalproex Sodium (Depakote Dr Tab(*)) 500 mg PO BID [facility] Last Admin: 12/09/16 09:10 Dose: 500 mg Diltiazem HCl (Cardizem Iv Advan*) 100 mg in 100 mls @ 5 mls/hr IVPB .PER PARAMETERS [facility] PRN Reason: 5 MG/HR Lorazepam (Ativan Tab(*)) 1 mg PO BEDTIME PRN PRN Reason: SLEEP Last Admin: 12/08/16 22:37 Dose: 1 mg Metoprolol Succinate (Toprol Xl Tab*) 200 mg PO DAILY [facility] Metoprolol Tartrate (Lopressor Tab*) 25 mg PO ONCE ONE Stop: 12/09/16 22:01 Modafinil (Provigil Tab*) 200 mg PO 0900 [facility] Last Admin: 12/09/16 09:10 Dose: 200 mg Morphine Sulfate (Morphine Inj (Syringe)*) 2 mg IV Q4H PRN PRN Reason: Pain/respiratory distress Last Admin: 12/09/16 07:07 Dose: 2 mg Pneumococcal Polyvalent Vaccine (Pneumococcal Vac Polyvalent*) 0.5 ml IM .ONCE ONE Stop: 12/10/16 09:01 Quetiapine Fumarate (Seroquel Tab*) 100 mg PO BEDTIME [facility] Last Admin: 12/08/16 20:49 Dose: Not Given Ramipril (Altace Cap*) 5 mg PO DAILY [facility] Last Admin: 12/09/16 09:10 Dose: 5 mg Vital Signs 12/08/16 12/08/16 12/08/16 15:34 19:40 22:34 Temperature 98.5 F 97.8 F Pulse Rate 96 Respiratory 24 26 Rate Blood Pressure 146/86 (mmHg) O2 Sat by Pulse 94 Oximetry 12/08/16 12/08/16 12/09/16 22:37 23:43 00:22 Temperature 99.4 F Pulse Rate Respiratory 26 24 36 Rate Blood Pressure 145/97 (mmHg) O2 Sat by Pulse 91 Oximetry 12/09/16 12/09/16 12/09/16 00:34 00:37 00:44 Temperature Pulse Rate Respiratory 32 32 Rate Blood Pressure (mmHg) O2 Sat by Pulse 94 Oximetry 12/09/16 12/09/16 12/09/16 01:22 01:23 02:02 Temperature Pulse Rate Respiratory 32 32 29 Rate Blood Pressure (mmHg) O2 Sat by Pulse Oximetry 12/09/16 12/09/16 12/09/16 02:05 02:10 02:15 Temperature Pulse Rate Respiratory 30 29 34 Rate Blood Pressure 152/96 150/98 142/103 (mmHg) O2 Sat by Pulse Oximetry 12/09/16 12/09/16 12/09/16 02:30 02:45 03:00 Temperature Pulse Rate Respiratory 30 28 Rate Blood Pressure 130/97 130/94 130/91 (mmHg) O2 Sat by Pulse Oximetry 12/09/16 12/09/16 12/09/16 03:15 03:21 03:30 Temperature 98.9 F Pulse Rate 93 Respiratory 22 16 28 Rate Blood Pressure 150/105 149/104 (mmHg) O2 Sat by Pulse 95 Oximetry 12/09/16 12/09/16 12/09/16 04:00 04:05 04:30 Temperature Pulse Rate Respiratory 30 28 Rate Blood Pressure 135/89 157/100 (mmHg) O2 Sat by Pulse Oximetry 12/09/16 12/09/16 12/09/16 05:00 06:00 07:00 Temperature Pulse Rate Respiratory 31 34 Rate Blood Pressure 142/78 134/101 146/93 (mmHg) O2 Sat by Pulse Oximetry 12/09/16 12/09/16 12/09/16 07:07 07:33 08:00 Temperature 98.1 F Pulse Rate Respiratory 40 20 32 Rate Blood Pressure 138/101 (mmHg) O2 Sat by Pulse 93 Oximetry 12/09/16 12/09/16 12/09/16 08:07 09:00 09:09 Temperature Pulse Rate 102 Respiratory 32 31 Rate Blood Pressure (mmHg) O2 Sat by Pulse Oximetry 12/09/16 12/09/16 12/09/16 09:10 09:14 10:00 Temperature Pulse Rate 102 Respiratory 27 Rate Blood Pressure 154/97 171/96 (mmHg) O2 Sat by Pulse 89 Oximetry 12/09/16 12/09/16 12/09/16 11:00 11:19 12:00 Temperature 97.9 F Pulse Rate Respiratory 22 33 Rate Blood Pressure 147/96 140/83 (mmHg) O2 Sat by Pulse 92 Oximetry Oxygen Devices in Use Now: Nasal Cannula - 4L Appearance: Lying 30 deg in bed, NAD Eyes: No Scleral Icterus, PERRLA Ears/Nose/Mouth/Throat: Clear Oropharnyx, Mucous Membranes Moist Neck: Trachea Midline, - - JVD to angle of jaw Respiratory: Symmetrical Chest Expansion and Respiratory Effort, - - rales base up 1/2 Cardiovascular: - - tachy, IRIR Abdominal: NL Sounds; No Tenderness; No Distention, No Hepatosplenomegaly Lymphatic: No Cervical Adenopathy Extremities: No Edema Neurological: Alert and Oriented x 3 Result Diagrams: 12/09/16 00:17 12/09/16 05:17 Additional Lab and Data: Lab Results 12/07/16 12/07/16 12/07/16 Range/Units 16:25 16:25 16:25 WBC 8.5 (3.5-10.8) 10^3/ul RBC 3.20 L (4.0-5.4) 10^6/ul Hgb 9.1 L (14.0-18.0) g/dl Hct 28 L (42-52) % MCV 86 (80-94) fL MCH 29 (27-31) pg MCHC 33 (31-36) g/dl RDW 16 H (10.5-15) % Plt Count 176 (150-450) 10^3/ul MPV 8 (7.4-10.4) um3 Neut % (Auto) 78.6 (38-83) % Lymph % (Auto) 11.7 L (25-47) % [place] % (Auto) 8.6 (1-9) % Eos % (Auto) 0.4 (0-6) % Baso % (Auto) 0.7 (0-2) % Absolute Neuts (auto) 6.7 (1.5-7.7) 10^3/ul Absolute Lymphs (auto) 1.0 (1.0-4.8) 10^3/ul Absolute Monos (auto) 0.7 (0-0.8) 10^3/ul Absolute Eos (auto) 0 (0-0.6) 10^3/ul Absolute Basos (auto) 0.1 (0-0.2) 10^3/ul Absolute Nucleated RBC 0 10^3/ul Nucleated RBC % 0 INR (Anticoag Therapy) 1.04 (0.89-1.11) APTT 29.1 (26.0-36.3) seconds D-Dimer, Quantitative 448 H (Less Than 230) ng/mL Sodium 134 (133-145) mmol/L Potassium 3.8 (3.5-5.0) mmol/L Chloride 100 L (101-111) mmol/L Carbon Dioxide 28 (22-32) mmol/L Anion Gap 6 (2-11) mmol/L BUN 18 (6-24) mg/dL Creatinine 1.02 (0.67-1.17) mg/dL Est GFR ( Amer) 94.3 (>60) Est GFR (Non-Af Amer) 73.3 (>60) BUN/Creatinine Ratio 17.6 (8-20) Glucose 89 (70-100) mg/dL Lactic Acid (0.5-2.0) mmol/L Calcium 8.4 L (8.6-10.3) mg/dL Magnesium 1.7 L (1.9-2.7) mg/dL Total Bilirubin 0.70 (0.2-1.0) mg/dL AST 16 (13-39) U/L ALT 8 (7-52) U/L Alkaline Phosphatase 67 (34-104) U/L Total Creatine Kinase 112 (10-223) U/L CK-MB (CK-2) 2.1 (0.6-6.3) ng/mL Troponin I 0.11 H* (<0.04) ng/mL C-Reactive Protein 121.34 H (< 5.00) mg/L B-Natriuretic Peptide ( - 100) pg/mL Total Protein 5.8 L (6.4-8.9) g/dL Albumin 3.2 (3.2-5.2) g/dL Globulin 2.6 (2-4) g/dL Albumin/Globulin Ratio 1.2 (1-3) Lipase 23 (11.0-82.0) U/L TSH 0.30 L (0.34-5.60) mcIU/mL Free T4 Pending Free T3 Pending Urine Color Urine Appearance Urine pH (5-9) Ur Specific [place] (1.010-1.030) Urine Protein (Negative) Urine Ketones (Negative) Urine Blood (Negative) Urine Nitrate (Negative) Urine Bilirubin (Negative) Urine Urobilinogen (Negative) Ur Leukocyte Esterase (Negative) Urine WBC (Auto) (Absent) Urine RBC (Auto) (Absent) Ur Squamous Epith Cells (Absent) Urine Bacteria (Absent) Urine Glucose (Negative) Urine Ascorbic Acid (Negative) 12/07/16 12/07/16 12/07/16 Range/Units 16:25 16:25 17:07 WBC (3.5-10.8) 10^3/ul RBC (4.0-5.4) 10^6/ul Hgb (14.0-18.0) g/dl Hct (42-52) % MCV (80-94) fL MCH (27-31) pg MCHC (31-36) g/dl RDW (10.5-15) % Plt Count (150-450) 10^3/ul MPV (7.4-10.4) um3 Neut % (Auto) (38-83) % Lymph % (Auto) (25-47) % [place] % (Auto) (1-9) % Eos % (Auto) (0-6) % Baso % (Auto) (0-2) % Absolute Neuts (auto) (1.5-7.7) 10^3/ul Absolute Lymphs (auto) (1.0-4.8) 10^3/ul Absolute Monos (auto) (0-0.8) 10^3/ul Absolute Eos (auto) (0-0.6) 10^3/ul Absolute Basos (auto) (0-0.2) 10^3/ul Absolute Nucleated RBC 10^3/ul Nucleated RBC % INR (Anticoag Therapy) (0.89-1.11) APTT (26.0-36.3) seconds D-Dimer, Quantitative (Less Than 230) ng/mL Sodium (133-145) mmol/L Potassium (3.5-5.0) mmol/L Chloride (101-111) mmol/L Carbon Dioxide (22-32) mmol/L Anion Gap (2-11) mmol/L BUN (6-24) mg/dL Creatinine (0.67-1.17) mg/dL Est GFR ( Amer) (>60) Est GFR (Non-Af Amer) (>60) BUN/Creatinine Ratio (8-20) Glucose (70-100) mg/dL Lactic Acid 1.4 (0.5-2.0) mmol/L Calcium (8.6-10.3) mg/dL Magnesium (1.9-2.7) mg/dL Total Bilirubin (0.2-1.0) mg/dL AST (13-39) U/L ALT (7-52) U/L Alkaline Phosphatase (34-104) U/L Total Creatine Kinase (10-223) U/L CK-MB (CK-2) (0.6-6.3) ng/mL Troponin I (<0.04) ng/mL C-Reactive Protein (< 5.00) mg/L B-Natriuretic Peptide 662 H ( - 100) pg/mL Total Protein (6.4-8.9) g/dL Albumin (3.2-5.2) g/dL Globulin (2-4) g/dL Albumin/Globulin Ratio (1-3) Lipase (11.0-82.0) U/L TSH (0.34-5.60) mcIU/mL Free T4 Free T3 Urine Color Yellow Urine Appearance Cloudy Urine pH 6.0 (5-9) Ur Specific [place] 1.017 (1.010-1.030) Urine Protein 2+(100 mg/dl) H (Negative) Urine Ketones Trace H (Negative) Urine Blood 3+ H (Negative) Urine Nitrate Positive H (Negative) Urine Bilirubin Negative (Negative) Urine Urobilinogen Negative (Negative) Ur Leukocyte Esterase 3+ H (Negative) Urine WBC (Auto) 3+(>20/hpf) H (Absent) Urine RBC (Auto) 3+(>10/hpf) H (Absent) Ur Squamous Epith Cells Present H (Absent) Urine Bacteria Absent (Absent) Urine Glucose Negative (Negative) Urine Ascorbic Acid * H (Negative) Assess/Plan/Problems-Billing Assessment: 66 yo M h/o ischemic cardiomyopathy (ef 25-30%), CAD, aflutter s/p ablation ( 1999), p/w increased SOB x 1 week - Patient Problems (1) Shortness of breath Comment: Mostly resolved 12/08 with better HR control however increased O2 requirement today after afib RVR to 150s c/w increased toprol and monitor on telemetry (change Q6hr to toprol XL 200mg tomorrow) Cardiology to consult. Recommended stress test performed today. No plan for immediate cardioversion. Would likely benefit from AV julee ablation and dual chamber PPM with ICD given ischemic cardiomyop with ef<30% incentive spirometry and mobilize 2/2 atalectasis (2) Congestive heart failure Comment: decompensated with afib RVR - combined systolic/diastolic causing acute hypoxic respiratory failure on no diuretics at home lasix 40IV this AM, schedule 20IV daily. Can consider gallagher of I/I not accurate strict I/O and daily weights (3) Bipolar 1 disorder Comment: seroquel ativan PRN bedtime (4) CAD (coronary artery disease) Comment: metoprolol, ramapril, ASA (5) Troponin I above reference range Comment: suspect demand in setting of RVR TTE w/out RWMA s/p stress test 12/09, intermediate risk but unchanged from prior (6) Afib Comment: metoprolol XL from 100 to 200 mg (was receiving 200mg TDD but with short acting) digoxin 500mcg today in setting of low level 12/09 pradaxa (7) DVT prophylaxis Comment: pradaxa Status and Disposition: inpatient given hypoxic respiratory failure and afib RVR requiring diltiazem gtt
[2016-12-09] MEDS ORDERED: Furosemide IV* 10 MG/ML 2 ML VIAL (20 MG) IV SLOW PU ONE (15:58)
[2016-12-09] MEDS ORDERED: Amiodarone TAB* 200 MG PO ONE (20:00)
[2016-12-09] MEDS: QUEtiapine TAB* 100 MG PO SCH (21:01)
[2016-12-09] MEDS ORDERED: Metoprolol Tartrate TAB* 25 MG PO ONE (22:00)
[2016-12-09] MEDS: LORazepam TAB(*) 1 MG PO PRN (22:05)
--- NOTE | 2016-12-10 05:03 | CONS ---
CC: Dr. Jame Chiu MD; Dr. Bagley, [facility] * CARDIOLOGY CONSULTATION: DATE OF CONSULT: 12/09/16 REASON FOR CONSULTATION: Atrial fibrillation and cardiomyopathy. CHIEF COMPLAINT: Shortness of breath. HISTORY OF PRESENT ILLNESS: Mr. Farah is a 66-year-old gentleman with a history of paroxysmal atrial fibrillation as well as known atherosclerotic heart disease, who has been followed by Dr. Bagley as well as Dr. Bagley' s EP colleague, Dr. Sales, in [place], although it sounds like he has not been there in some time. The patient is a bit of a vague historian; but he says for several weeks, he has been having progressive exercise or activity intolerance, trouble climbing stairs due to feeling winded. He denied orthopnea or PND and he states that he perceived he was very dehydrated and started drinking more fluids and felt that things initially improved. The patient states the reason he came to the hospital is because his wanted him to come and the Hospitalist's note document orthopnea and a change in behavior (history of bipolar disorder). The patient denied ever having chest pain, pressure, heaviness. It was revealed that he stopped his anticoagulation in the past due to painful bruising and it was the pain that really had him stop his oral anticoagulant. PAST MEDICAL HISTORY: 1. The patient has a past medical history of paroxysmal atrial fibrillation ( ejection fraction at [facility] typically 25% to 30%, but according to verbal communication with Dr. Bagley and Dr. Sales, in sinus rhythm, in 2015, his ejection fraction went up to 45%). 2. Cardiomyopathy. 3. Coronary artery disease, circumflex coronary stented 2007. Catheterization , 09/01/15, showed 40% occlusion LAD, proximally 30% occlusion mid LAD, 30% occlusion second diagonal, circumflex nondominant patent stents with mild in- stent restenosis, right coronary artery dominant with a 20% occlusion, mid right coronary artery 40% occlusion distal. 4. History of paroxysmal aflutter, status post flutter ablation in 09/06/14 ( Dr. Sales). 5. Hypertension. 6. Dyslipidemia. 7. Congestive heart failure. 8. Bipolar disorder. 9. Marfan syndrome. 10. Closed head injury in the past. 11. Chronic anemia. PAST SURGICAL HISTORY: 1. Hernia repair. 2. Wrist surgery. 3. Leg surgery. 4. History of corneal and retinal issues. ALLERGIES: He has no known drug allergies. MEDICATIONS: Current inpatient medications include: 1. Tylenol p.r.n. 2. [place] 5/325 one q.6 hours p.r.n. 3. Aspirin 81 mg a day. 4. Keflex 500 mg 4 times a day. 5. Digoxin 0.125 mg a day. 6. Depakote 500 mg b.i.d. 7. Lasix 20 mg IV. 8. Ativan p.r.n. 9. Insomnia. 10. Toprol XL 200 mg a day. 11. Provigil 200 mg a day. 12. Morphine p.r.n. shortness of breath. 13. Pneumococcal vaccine given. 14. Seroquel 100 mg q.h.s. 15. Altace 5 mg a day. FAMILY HISTORY: His mother at age 62 of cancer. His father at age 66 of a myocardial infarction. SOCIAL HISTORY: The patient is , smoked until 15 years ago about half a pack a day, rare alcohol, no recreational drugs. REVIEW OF SYSTEMS: See history of present illness. Additionally, he has some ankle issues that limit him orthopedically. PHYSICAL EXAMINATION: On exam, the patient is 6 feet 2 inches, weighs 201 pounds with a BMI of 25, blood pressure 140/83, he is in AFib from the low 100s as high as 150 beats a minute. General Appearance: Tall, lean gentleman, lying at 20 degrees comfortably in the nuclear stress lab with a Ventimask on. Psychologically, pleasant and cooperative. Neurologically, awake, alert, and oriented to person, place, and time. Grossly normal sensory and motor function in the upper and lower extremities. Moves extremities well and gait not checked. Skin: Warm, dry, free of cyanosis or rashes. HEENT: Pupils are equal and round. Mucous membranes moist. Neck without appreciable increased JVP, palpable carotid pulses without bruits. Breath sounds clear with good effort. No wheezes, rales or rhonchi, but quite distant. Coronary: S1, S2. Irregularly irregular and tachycardic without appreciable murmurs. Abdomen: Flat, nondistended, active bowel sounds, soft, nontender. I did not appreciate hepatomegaly. Lower extremities show trace edema at the ankles. Some mild skin discoloration suggestive of chronic venostasis. DIAGNOSTIC STUDIES/LAB DATA: White count 8.9, hemoglobin 9.3, hematocrit 29, platelets 154 (in March and April of 2016, hematocrit ranged from 34 to a high of 45, going back to 2012, hematocrit 38.) INR 1.04, PTT 29, D-dimer 448. Sodium 133, potassium 3.8, chloride 100, bicarb 31, BUN 16, creatinine 0.93, glucose 97, calcium 8.4, AST 16, troponin on arrival 0.11, peaked at 0.12, today 0.10. C- reactive protein 121.34, BNP of 662, TSH 0.30, free T4 0.81, free T3 2.8. Urinalysis 2+ protein, trace ketones, 3+ blood, nitrite positive, leukocyte esterase 3+, 3+ white cells. STUDIES: Chest x-ray on admission, 12/07/16, right basilar sublingual atelectasis. CT of the chest and thorax, 12/07/16, negative for pulmonary embolism, atelectasis bilaterally. Echocardiogram, 12/08/16, ejection fraction 25% to 30%, mild RV dysfunction, trace aortic insufficiency, trace to mild mitral insufficiency, mild tricuspid insufficiency, PA pressure unable to estimate. Nuclear scan done this morning, small area of ischemia in the septum seen on prior exam, ejection fraction calculated at 43%. IMPRESSION AND PLAN: In summary, Mr. Farah is a 66-year-old gentleman with a history of paroxysmal atrial fibrillation and cardiomyopathy felt out of proportion to his atherosclerotic disease and related to rate presenting with atrial fibrillation of uncertain duration and his ejection fraction has again dropped, he presented in CHF. The patient has atherosclerotic heart disease as described above in the mild to moderate range, and no evidence of significant reversible disease on his nuclear scan. Issues include the patient's noncompliance and apparent intolerance to anticoagulants, difficulty with the patient's bipolar disorder with compliance as well. For the patient's atrial fibrillation, although I agree with Dr. 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 After discussion with the cilnical scientist in [place], I am recommending the following plan: Initiation of amiodarone and DIVYA-guided cardioversion. Initiation of chronic anticoagulant, one of the NOACs I think could be the safest for him and he can take full dose with his creatinine clearance. Dr. Sales and Dr. Bagley proposed once he has been cardioverted and on anticoagulants for at least a month, a Watchman left atrial appendage occluder device could be implanted and following this, chronic anticoagulation would not be obligatory and his stroke risk would be markedly diminished even if he does go back in atrial fibrillation in the future. custodial, he is young to be on amiodarone, I think it is the safest drug now and if his cardiomyopathy resolves and he maintains sinus rhythm, we could convert to a different anti-arrhythmic with less long-term effects. For the patient's atherosclerotic heart disease, his stress test is reassuring and small bump in troponins are most likely related to the atrial fibrillation and congestive heart failure. For the patient's cardiomyopathy, I would continue with beta-blockers that hopefully will be able to decrease his Lopressor dose as his amiodarone is loaded, and we can continue him on an ARB and he may need diuretics, combination of loop and spironolactone may be of benefit while his ejection fraction is diminished. We can continue the digoxin for now; but at his age, it may not do a great job in rate control and my hope is as the amiodarone loads, his rate control will improve and if we are able to cardiovert him successfully tomorrow, I would consider discontinuing the digoxin. The Provigil may not be an optimal drug for someone with paroxysmal atrial fibrillation, but we need to coordinate with the physicians that handle his bipolar medications. The patient's longstanding anemia is noted that is worsened and this has potential impact on his ability to be on anticoagulation even for a few weeks and if it has not been investigated as an outpatient, may want to be reevaluated. The urinary tract infection and elevated C-reactive protein noted. This should be tracked to ensure there is no other source of infection or inflammation. The low TSH is noted as well, this is new compared with March and any thyroid abnormalities especially hyperthyroid could also be contributing to his current presentation. This is going to be complicated by the addition of amiodarone even short term, so we will need to watch this carefully. Further recommendations will be made pending the response to his DIVYA-guided cardioversion and tolerance to the above medication adjustments. I would try to keep his potassium between 4 and 4.5 and mag above 2 as well and if able, his sodium in normal range. [id number]/[facility] #: [id number] [facility], MANHATTANIsauro
[2016-12-10 05:26] LABS: Hematocrit 32 % (42-52); Hemoglobin 10.6 g/dl (14.0-18.0); Mean Corpuscular HGB Conc 33 g/dl (31-36); Mean Corpuscular Hemoglobin 28 pg (27-31); Mean Corpuscular Volume 85 fL (80-94); Mean Platelet Volume 8 um3 (7.4-10.4); Red Blood Count 3.76 10^6/ul (4.0-5.4); Red Cell Distribution Width 16 % (10.5-15); White Blood Count 6.6 10^3/ul (3.5-10.8)
[2016-12-10 05:36] LABS: BUN/Creatinine Ratio 25.5 (8-20); Calcium 8.7 mg/dL (8.6-10.3); EGFR African American 103.6 (>60); EGFR Non-African American 80.5 (>60); Potassium 3.6 mmol/L (3.5-5.0)
[2016-12-10] MEDS ORDERED: Potassium Chlor TAB* 20 MEQ TAB.ER PO ONE (08:24)
[2016-12-10] MEDS: Metoprolol Succinate XL TAB* 200 MG TAB.XL PO SCH (09:43)
[2016-12-10] MEDS: Amiodarone TAB* 400 MG PO SCH (09:43)
[2016-12-10] MEDS: CMCS: Dabigatran CAP(NF) 150 MG CAP PO SCH ×2 (09:43→20:39)
[2016-12-10] MEDS: Digoxin TAB* 0.125 MG PO SCH (09:44)
[2016-12-10] MEDS: Cephalexin CAP* 500 MG PO SCH ×4 (09:44→20:39)
[2016-12-10] MEDS: Divalproex DR TAB(*) 500 MG PO SCH ×2 (09:45→20:39)
--- NOTE | 2016-12-10 10:04 | PN ---
Subjective Date of Service: 12/10/16 Interval History: Patient seen this morning. at bedside. He denies any SOB this morning. No chest pain. Urinated a lot yesterday. Took off NC this morning and sats currently in mid-low 80s, O2 replaced. Family History: Unchanged from Admission Social History: Unchanged from Admission Past Medical History: Unchanged from Admission Objective Active Medications: Acetaminophen (Tylenol Tab*) 650 mg PO Q4H PRN Hydrocodone Bitart/Acetaminophen ([place] 5-325 Tab*) 1 tab PO Q6H PRN Amiodarone HCl ([place]ar[place] Tab*) 400 mg PO DAILY [facility] Aspirin (Aspirin Ec Low Dose*) 81 mg PO DAILY [facility] Cephalexin HCl (Keflex Cap*) 500 mg PO QID [facility] Dabigatran (Pradaxa Cap(Nf)) 150 mg PO BID [facility] Digoxin (Lanoxin Tab*) 0.125 mg PO 0900 [facility] Divalproex Sodium (Depakote Dr Tab(*)) 500 mg PO BID [facility] Furosemide (Lasix Iv*) 20 mg IV SLOW PU DAILY [facility] Lorazepam (Ativan Tab(*)) 1 mg PO BEDTIME PRN Metoprolol Succinate (Toprol Xl Tab*) 200 mg PO DAILY [facility] Modafinil (Provigil Tab*) 200 mg PO 0900 [facility] Morphine Sulfate (Morphine Inj (Syringe)*) 2 mg IV Q4H PRN Quetiapine Fumarate (Seroquel Tab*) 100 mg PO BEDTIME [facility] Ramipril (Altace Cap*) 5 mg PO DAILY [facility] Vital Signs 12/09/16 12/09/16 12/09/16 10:00 11:00 11:19 Temperature 97.9 F Pulse Rate Respiratory 27 22 Rate Blood Pressure 171/96 147/96 (mmHg) O2 Sat by Pulse 89 Oximetry 12/10/16 12/10/16 12/10/16 07:31 07:57 09:44 Temperature 98.4 F Pulse Rate 93 122 Respiratory 20 20 Rate Blood Pressure 149/69 (mmHg) O2 Sat by Pulse 94 Oximetry Oxygen Devices in Use Now: Nasal Cannula - 2-3L Appearance: Middle-aged, M, laying in bed in NAD Eyes: No Scleral Icterus Ears/Nose/Mouth/Throat: - - Dry MM Neck: NL Appearance and Movements; NL JVP Respiratory: Symmetrical Chest Expansion and Respiratory Effort, - - Basilar rales, L>R Cardiovascular: - - IRIR Abdominal: NL Sounds; No Tenderness; No Distention Lymphatic: No Cervical Adenopathy Extremities: No Edema Skin: No Rash or Ulcers Neurological: Alert and Oriented x 3 Result Diagrams: 12/10/16 05:08 12/10/16 05:08 Assess/Plan/Problems-Billing Assessment: 66 yo M h/o ischemic cardiomyopathy (ef 25-30%), CAD, aflutter s/p ablation ( 1999), p/w increased SOB x 1 week, found to have AFib with RVR, CHF exacerbation - Patient Problems (1) Shortness of breath Current Visit: Yes Comment: Mostly resolved 12/08 with better HR control however on 12/09 HR increased and hypoxia worsened. Appreciate Cardiology consult, plan for DIVYA/Cardioversion today. Stress test unchanged from prior. c/w increased Toprol XL and Amiodarone incentive spirometry and mobilize 2/2 atalectasis (2) Congestive heart failure Current Visit: Yes Comment: decompensated with afib RVR - combined systolic/ diastolic causing acute hypoxic respiratory failure on no diuretics at home Good UOP on 12/09, continue Lasix IV 20 mg daily for now strict I/O and daily weights (3) Bipolar 1 disorder Current Visit: Yes Comment: Continue depakote and seroquel ativan PRN bedtime (4) CAD (coronary artery disease) Current Visit: Yes Comment: metoprolol, ramapril, ASA (5) Afib Current Visit: Yes Comment: Increased metoprolol XL from 100 to 200 mg (was receiving 200mg TDD but with short acting) Amiodarone loading Recheck Digoxin level today, continue prior dosing. pradaxa DIVYA/Cardioversion today, patient would benefit from watchman device as outpatient so patient can be off anticoagulation (6) DVT prophylaxis Current Visit: Yes Comment: pradaxa Status and Disposition: inpatient given hypoxic respiratory failure and afib RVR
[2016-12-10] MEDS ORDERED: KCL 10 MEQ/50 ML IVPREMIX* 10 MEQ/50 ML BAG IV ONE (10:43)
[2016-12-10 11:45] LABS: Digoxin 0.7 ng/ml (0.8-2.0)
[2016-12-10] MEDS ORDERED: fentaNYL* 50 MCG/ML 2 ML VIAL (100 MCG VIAL) ONE (12:30)
[2016-12-10] MEDS ORDERED: Midazolam* 1 MG/ML 5 ML VIAL (5 MG) ONE (12:30)
[2016-12-10] MEDS ORDERED: Flumazenil* 0.1 MG/ML 5 ML MDV ONE (12:30)
[2016-12-10] MEDS ORDERED: Lidocaine 2% VISCOUS* 15 ML UDC ONE (12:30)
[2016-12-10] MEDS ORDERED: Naloxone* 0.4 MG/ML 1 ML VIAL ONE (12:30)
--- NOTE | 2016-12-10 14:37 | TEE ---
Amended Report Patient: MO GARCIA [facility] Rec#: [id number] : 1950 Date: 12/10/2016 Age: 66y Height: 187.96 cm / 74.0 in Weight: 91.17 kg / 200.9 lbs Sex: M BSA: 2.18 Room#: 431 Admit Date#: 12/07/2016 Type: Inpatient Referring: SWAPNA GARCIA MD Performing: Rohit Borjas MD Reading: Rohit Borjas MD Ammonia Print Operator: Rebecca Castillo RN RD Nurse: Corine Shi RN Transesophageal Echocardiogram Indication: A. Flutter BP: 143/96 HR: 94 Rhythm: A-Flutter Findings History: Ischemic cardiomyopathy, CAD, PCI, HTN, AFIB/FLUTTER Technical Comments: The study quality is good. Left Ventricle: The left ventricular chamber size is normal. Mild to moderate concentric left ventricular hypertrophy is observed. There is global hypokinesis of the left ventricle with minor regional variation. There is severely decreased left ventricular systolic function. The estimated ejection fraction is 20-25%. Left Atrium: The left atrium is moderately dilated. There is mild continuous spontaneous echo contrast visualized in the left atrium cavity and appendage. The left atrial appendage velocity is mildly reduced. There is no thrombus visualized in the left atrial appendage. The NEFTALI orifice measures: 2.2 cm at 0 degrees 2.4 cm at 28 degrees 2.6 cm at 58 degrees 2.1 cm at 92 degrees 2.5 cm at 111 degrees. Right Ventricle: The right ventricular chamber size and systolic function are within normal limits. Right Atrium: The right atrium is mildly dilated. A patent foramen ovale is not demonstrated with color Doppler and agitated contrast. Aortic Valve: The aortic valve is trileaflet. There is a trace of aortic regurgitation. There is no evidence of aortic stenosis. Mitral Valve: The mitral valve leaflets appear normal. There is mild mitral regurgitation. There is no evidence of mitral stenosis. Tricuspid Valve: The tricuspid valve leaflets are normal. There is mild tricuspid regurgitation. Pulmonic Valve: The pulmonic valve appears normal. There is a trace pulmonic regurgitation. Pericardium: There is no significant pericardial effusion. Aorta: There is mild dilatation of the ascending aorta. There is mild dilatation of the aortic root. There is plaque visualized in the transverse aorta. There is plaque visualized in the descending aorta. Pulmonary Artery: The main pulmonary artery appears normal. Venous: The inferior vena cava appears normal. The pulmonary veins appear normal. 2 of 4 visualized The superior vena cava appears normal. DIVYA Procedures: All standard views were attempted within the limitations of patient tolerance and safety. History and physical as well as labs were reviewed. The patient was in a fasting state. Risks and benefits of the procedure, including alternatives, were discussed and written informed consent was obtained. The patient and/or their health care pharmaceutical service representative expressed understanding of the procedure, risks and benefits. Baseline and continuous monitoring of blood pressure, heart rate, pulse oximetry and heart rhythm was performed throughout the procedure. The appropriate time-out procedure was performed as per [facility] protocol. The patient was placed in the left lateral decubitus position. The patient received IV Midazolam with a total dose of 5 mg The patient received IV Fentanyl with a total dose of 50 mcg An oral bite block was inserted for protection of oral dentition. The multiplane transesophageal echocardiogram probe was inserted through the posterior oropharynx and advanced into the esophagus without difficulty. Multiple 2D images were obtained of the heart and its related structures. Color flow Doppler was used for evaluation. Spectral Doppler was also used. The atrial septum was interrogated with color flow Doppler. At the conclusion of the procedure the probe was removed with continuous suction without complications. The patient tolerated the procedure with no apparent complications. Contrast: Intravenous agitated saline contrast was used to assess intracardiac shunting. Image 70 Conclusions Mild to moderate concentric left ventricular hypertrophy is observed. There is severely decreased left ventricular systolic function. The estimated ejection fraction is 20-25%. The left atrium is moderately dilated. There is mild continuous spontaneous echo contrast visualized in the left atrium cavity and appendage. There is no thrombus visualized in the left atrial appendage. There is mild mitral regurgitation. There is mild tricuspid regurgitation. There is mild dilatation of the ascending aorta. There is mild dilatation of the aortic root. There is mild plaque visualized in the transverse aorta. There is plaque visualized in the descending aorta. similar to 6.27.17 Measurements Name Value Normal Range Aortic Annulus 2.3 cm (1.4 - 2.6) Ao root diameter (2D) 3.7 cm (2.1 - 3.5) Ascending Ao 3.9 cm (2.1 - 3.4)
[2016-12-10] MEDS: Modafinil TAB* 100 MG PO SCH (15:55)
[2016-12-10] MEDS: Ramipril CAP* 5 MG PO SCH (16:02)
[2016-12-10] MEDS: Furosemide IV* 10 MG/ML 2 ML VIAL (20 MG) IV SLOW PU SCH (16:02)
[2016-12-10] MEDS: Aspirin EC Low Dose* 81 MG TAB.EC PO SCH (16:03)
[2016-12-10] MEDS: Pneumococcal Vac Polyvalent* 0.5 ML VIAL IM ONE ×2 (16:10→17:04)
[2016-12-10] MEDS: HYDROcodone/ACETAMIN 5-325 MG* 1 TAB PO PRN (20:43)
[2016-12-10] MEDS: QUEtiapine TAB* 100 MG PO SCH (21:02)
[2016-12-10] MEDS: LORazepam TAB(*) 1 MG PO PRN (22:15)
--- NOTE | 2016-12-11 04:49 | CARD ---
CC: Dr. Saha; Dr. Zuniga; Dr. Bagley in [place]. * PROCEDURE NOTE: DATE OF PROCEDURE: 12/10/16 - ROOM #437 PATIENT OF: Dr. Saha. PROCEDURE: DIVYA-guided cardioversion. 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 He was noted to be in heart failure with AFib with rapid ventricular response and an EF of 25% to 30% on his echo. He has been on anticoagulation and has had rates in the 190 to 120 range on medications. A DIVYA- guided cardioversion was requested. The importance of continuing anticoagulation for at least a month after the procedure was discussed with the patient. He understands the risk of stroke. DESCRIPTION OF PROCEDURE: The patient was in a fasting state. Informed consent was obtained. He was premedicated with 5 mg of Versed and 50 mcg of fentanyl for the DIVYA which revealed no evidence of intracardiac thrombus. There was spontaneous contrast in the left atrium and left ventricle and his EF was estimated at 20% to 25%. The DIVYA was uncomplicated. An additional 2 mg of Versed was given after the DIVYA and a cardioversion was performed with a single synchronized biphasic shock of 120 joules with conversion to sinus rhythm. The patient tolerated the procedures without complications and will be observed for recovery from conscious sedation. The plan is for the patient to continue on his medications to suppress AFib and control the rate. He is to have a followup with Dr. Bagley and Dr. Zuniga for possible AFib ablation and possible placement of a left atrial appendage occlusion device. [id number]/[facility] #: [id number] [facility]
[2016-12-11 05:53] LABS: BUN/Creatinine Ratio 34.1 (8-20); Blood Urea Nitrogen 30 mg/dL (6-24); CO2 Carbon Dioxide 34 mmol/L (22-32); Calcium 8.7 mg/dL (8.6-10.3); Chloride 99 mmol/L (101-111); EGFR African American 111.8 (>60); EGFR Non-African American 86.9 (>60); Glucose 106 mg/dL (70-100); Magnesium 2.1 mg/dL (1.9-2.7); Sodium 133 mmol/L (133-145)
[2016-12-11] MEDS: Amiodarone TAB* 400 MG PO SCH (08:38)
[2016-12-11] MEDS: Modafinil TAB* 100 MG PO SCH (08:38)
[2016-12-11] MEDS: Divalproex DR TAB(*) 500 MG PO SCH ×2 (08:38→21:20)
[2016-12-11] MEDS: Cephalexin CAP* 500 MG PO SCH (08:38)
[2016-12-11] MEDS: Metoprolol Succinate XL TAB* 200 MG TAB.XL PO SCH (08:38)
[2016-12-11] MEDS: Digoxin TAB* 0.125 MG PO SCH (08:38)
[2016-12-11] MEDS: Aspirin EC Low Dose* 81 MG TAB.EC PO SCH (08:39)
[2016-12-11] MEDS: Furosemide IV* 10 MG/ML 2 ML VIAL (20 MG) IV SLOW PU SCH (08:39)
[2016-12-11] MEDS: CMCS: Dabigatran CAP(NF) 150 MG CAP PO SCH ×2 (08:39→21:20)
[2016-12-11] MEDS: Ramipril CAP* 5 MG PO SCH (08:39)
[2016-12-11] MEDS: HYDROcodone/ACETAMIN 5-325 MG* 1 TAB PO PRN ×2 (08:42→21:26)
--- NOTE | 2016-12-11 09:51 | PN ---
Subjective Date of Service: 12/11/16 Interval History: Patient seen this morning. Successful cardioversion yesterday and has remained in NSR. He denies any SOB, chest pain. says breathing has been a bit labored at times, thinks he is not steady on his feet. Family History: Unchanged from Admission Social History: Unchanged from Admission Past Medical History: Unchanged from Admission Objective Active Medications: Acetaminophen (Tylenol Tab*) 650 mg PO Q4H PRN Hydrocodone Bitart/Acetaminophen (Gasquet 5-325 Tab*) 1 tab PO Q6H PRN Amiodarone HCl (Cordarone Tab*) 400 mg PO DAILY CHRIS Aspirin (Aspirin Ec Low Dose*) 81 mg PO DAILY [facility]RIS Cephalexin HCl (Keflex Cap*) 500 mg PO QID [facility]RIS Dabigatran (Pradaxa Cap(Nf)) 150 mg PO BID [facility]RIS Digoxin (Lanoxin Tab*) 0.125 mg PO 0900 [facility] Divalproex Sodium (Depakote Dr Tab(*)) 500 mg PO BID [facility] Furosemide (Lasix Iv*) 20 mg IV SLOW PU DAILY [facility] Lorazepam (Ativan Tab(*)) 1 mg PO BEDTIME PRN Metoprolol Succinate (Toprol Xl Tab*) 200 mg PO DAILY [facility] Modafinil (Provigil Tab*) 200 mg PO 0900 [facility] Morphine Sulfate (Morphine Inj (Syringe)*) 2 mg IV Q4H PRN Quetiapine Fumarate (Seroquel Tab*) 100 mg PO BEDTIME [facility]RIS Ramipril (Altace Cap*) 5 mg PO DAILY [facility] Vital Signs 12/10/16 12/10/16 12/10/16 11:10 12:10 14:36 Temperature 97.6 F 98.4 F Pulse Rate 41 74 66 Respiratory 22 14 Rate Blood Pressure 140/80 142/91 (mmHg) O2 Sat by Pulse 97 97 Oximetry 12/10/16 12/10/16 12/10/16 15:30 19:30 19:44 Temperature Pulse Rate 66 72 Respiratory 24 16 20 Rate Blood Pressure 167/102 126/79 (mmHg) O2 Sat by Pulse 95 95 Oximetry 12/10/16 12/10/16 12/10/16 20:43 22:15 22:43 Temperature Pulse Rate Respiratory 18 16 16 Rate Blood Pressure (mmHg) O2 Sat by Pulse Oximetry 12/10/16 12/11/16 12/11/16 23:55 00:15 03:19 Temperature 99.1 F 97.4 F Pulse Rate 69 63 Respiratory 16 16 16 Rate Blood Pressure 129/83 142/83 (mmHg) O2 Sat by Pulse 91 98 Oximetry 12/11/16 12/11/16 07:35 08:42 Temperature 97.5 F Pulse Rate 66 Respiratory 20 16 Rate Blood Pressure 147/88 (mmHg) O2 Sat by Pulse 95 Oximetry Oxygen Devices in Use Now: None Appearance: Middle-aged, M, laying in bed in NAD Eyes: No Scleral Icterus Ears/Nose/Mouth/Throat: Mucous Membranes Moist Neck: NL Appearance and Movements; NL JVP Respiratory: Symmetrical Chest Expansion and Respiratory Effort, - - Trace basilar rales B/L Cardiovascular: NL Sounds; No Murmurs; No JVD, RRR Abdominal: NL Sounds; No Tenderness; No Distention Lymphatic: No Cervical Adenopathy Extremities: No Edema Skin: No Rash or Ulcers Neurological: Alert and Oriented x 3 Result Diagrams: 12/10/16 05:08 12/11/16 05:00 Assess/Plan/Problems-Billing Assessment: 66 yo M h/o ischemic cardiomyopathy (ef 25-30%), CAD, aflutter s/p ablation ( 1999), p/w increased SOB x 1 week, found to have AFib with RVR, CHF exacerbation - Patient Problems (1) Shortness of breath Current Visit: Yes Comment: Mostly resolved 12/08 with better HR control however on 12/09 HR increased and hypoxia worsened. Appreciate Cardiology consult, cardioverted on 12/10 to NSR. Stress test 12/09 unchanged from prior. c/w Toprol XL and Amiodarone, may need dose adjustments incentive spirometry and mobilize 2/2 atalectasis (2) Congestive heart failure Current Visit: Yes Comment: decompensated with afib RVR - combined systolic/ diastolic causing acute hypoxic respiratory failure on no diuretics at home Good UOP on 12/09, continue Lasix IV 20 mg daily for now strict I/O and daily weights (3) Bipolar 1 disorder Current Visit: Yes Comment: Continue depakote and seroquel ativan PRN bedtime (4) CAD (coronary artery disease) Current Visit: Yes Comment: metoprolol, ramapril, ASA (5) Afib Current Visit: Yes Comment: Toprol 200 mg daily, given this AM, may need reduction in dose now that he is back in NSR, will monitor HR Continue Amiodarone Digoxin stopped by Cardiology. pradaxa Successful DIVYA/Cardioversion 12/10, patient would benefit from watchman device as outpatient so patient can be off anticoagulation (6) DVT prophylaxis Current Visit: Yes Comment: pradaxa Status and Disposition: inpatient given hypoxic respiratory failure and afib RVR
[2016-12-11] MEDS: Spironolactone TAB* 25 MG PO SCH (11:41)
[2016-12-11 12:20] LABS: Albumin 3.1 g/dL (3.2-5.2); BUN/Creatinine Ratio 29.4 (8-20); Calcium 9.1 mg/dL (8.6-10.3); EGFR African American 116.3 (>60); EGFR Non-African American 90.5 (>60); Globulin 3.3 g/dL (2-4); Potassium 4.1 mmol/L (3.5-5.0); Total Bilirubin 0.3 mg/dL (0.2-1.0); Total Protein 6.4 g/dL (6.4-8.9)
[2016-12-11 13:06] LABS: TSH (Thyroid Stimulating Horm) 1.77 mcIU/mL (0.34-5.60)
[2016-12-11 13:14] LABS: Free T4 0.9 ng/dL (0.61-1.12)
[2016-12-11 14:24] LABS: Troponin I 0.04 ng/mL (<0.04)
[2016-12-11] MEDS: QUEtiapine TAB* 100 MG PO SCH (21:11)
[2016-12-11] MEDS: LORazepam TAB(*) 1 MG PO PRN (21:25)
[2016-12-12] MEDS: HYDROcodone/ACETAMIN 5-325 MG* 1 TAB PO PRN ×2 (03:25→10:09)
[2016-12-12 08:51] LABS: BUN/Creatinine Ratio 26.7 (8-20); Calcium 8.8 mg/dL (8.6-10.3); EGFR African American 95.3 (>60); EGFR Non-African American 74.1 (>60); Potassium 4.1 mmol/L (3.5-5.0)
[2016-12-12] MEDS ORDERED: Metoprolol Succinate XL TAB* 100 MG PO SCH (09:00)
--- NOTE | 2016-12-12 09:51 | DCNOTE ---
Patient feeling well today. No new complaints. Breathing stable, agrees. On exam, RRR, s1 and s2 present, no m/g/r, abd soft, NTND, BS+, lungs CTA B/L Plan to discharge today on Toprol 100 mg daily and Amiodarone 200 mg daily as per Cardiology. Continue Pradaxa. Will need to f/u with Dr. Borjas as well as previous Cardiologists regarding watchman device.
[2016-12-12 09:58] VITALS: BP 143/73
[2016-12-12] MEDS: Ramipril CAP* 5 MG PO SCH (10:06)
[2016-12-12] MEDS: Aspirin EC Low Dose* 81 MG TAB.EC PO SCH (10:06)
[2016-12-12] MEDS: CMCS: Dabigatran CAP(NF) 150 MG CAP PO SCH (10:06)
[2016-12-12] MEDS: Divalproex DR TAB(*) 500 MG PO SCH (10:06)
[2016-12-12] MEDS: Spironolactone TAB* 25 MG PO SCH (10:06)
[2016-12-12] MEDS: Amiodarone TAB* 400 MG PO SCH (10:06)
[2016-12-12] MEDS: Modafinil TAB* 100 MG PO SCH (10:07)
--- NOTE | 2016-12-13 10:45 | DS ---
CC: Dr. Putnam; Dr. Lauryn Saha; Dr. Rohit Borjas DISCHARGE SUMMARY: DATE OF ADMISSION: 12/07/16 DATE OF DISCHARGE: 12/12/16 to [facility]. PRINCIPAL DISCHARGE DIAGNOSIS: Atrial fibrillation with rapid ventricular response, [id number] systolic congestive heart failure. SECONDARY DIAGNOSES: Coronary artery disease, history of ischemic cardiomyopathy, bipolar disease, hypertension, attention deficit hyperactive disorder, Marfan disorder. DISCHARGE MEDICATION REGIMEN: 1. Amiodarone 200 mg by mouth daily. 2. Pradaxa 150 mg by mouth 2 times daily. 3. Spironolactone 25 mg by mouth daily. 4. Toprol-XL 100 mg by mouth daily. 5. Ramipril 5 mg by mouth daily. 6. Lorazepam 1 mg by mouth at bedtime and as needed for anxiety. 7. Depakote 500 mg by mouth 2 times daily. 8. Modafinil 200 mg by mouth 2 times daily. 9. Tylenol 650 mg by mouth every 4 hours as needed for pain. 10. Aspirin 81 mg by mouth daily. 11. [place] 1 to 2 tablets by mouth every 6 hours as needed for pain. 12. Seroquel 100 mg by mouth at bedtime. STUDIES DONE DURING THIS HOSPITALIZATION: Chest x-ray, impression: Mild right basilar linear subsegmental atelectasis without additional acute findings. CTA of the chest, impression: No evidence for pulmonary embolism. Mild right greater than left dependent subsegmental atelectasis. No CT evidence for pulmonary edema. Negative for aneurysm or dissection of the thoracic aorta. Transthoracic echocardiogram, conclusion: Sihm-[id number]-[id number] concentric LVH, global hypokinesis of the left ventricle, severely decreased ejection fraction of 25% to 30%. Right ventricular global systolic function is low normal. Trace aortic regurgitation, fhmbu-um-[id number] mitral regurgitation, mild tricuspid regurgitation. Unable to estimate right ventricular systolic pressure and no significant pericardial effusion. Cardiac stress test, impression: Findings suggestive of small area of ischemia in the septum, unchanged from the prior exam, decreased left ventricular ejection fraction calculated to be 43%, which is improved from prior exam. Transesophageal echocardiogram: Fhlk-ec-ivuebtxj concentric LVH, severely decreased ejection fraction of 20% to 25%. Left atrium is moderately dilated, mild continuous spontaneous contrast visualized in the left atrium cavity and appendage. No thrombus visualized in the left atrial appendage. Mild mitral regurgitation, mild tricuspid regurgitation, mild dilatation of the ascending aorta, mild dilatation of the aortic root, mild plaque visualized in the transverse aorta. There is plaque visualized in the descending aorta similar to 12/08/16. HISTORY OF PRESENT ILLNESS AND HOSPITAL SUMMARY: Please see full history and physical by Dr. Jame Chiu for full details. Briefly, Mr. Farah is a 66- year- old male with a past medical history as above, who presented to the hospital for increasing shortness of breath without chest pain or palpitations. The patient was initially hesitant to come to the hospital; however, after evaluation at [facility], he was having significant labored breathing and it was recommended that he come in further workup. In the hospital, the patient was noted to be in atrial fibrillation, which he has had in the past. He was monitored closely and his heart rate became uncontrolled. He was subsequently started on a diltiazem drip. Cardiology was consulted. Dr. Saha evaluated the patient and discussed at length with the patient's proof press operator at [facility], Dr. Bagley. It seems that the patient has been seen by Dr. Bagley as well as an EP physician, Dr. Sales in [place] and the decision was made to proceed with a nuclear cardiac stress test, results of which is above as well as initiation of amiodarone and for the patient to undergo a DIVYA guided cardioversion. The patient has been noncompliant with his medications in the past and anticoagulation has been an issue. Decision was made at this time to start the patient on Pradaxa and with plans in the future to possibly undergo placement of a WATCHMAN device, so that he could get off anticoagulation. The patient was initially continued on his digoxin and his beta- blockers were titrated up. The patient underwent a cardioversion on 12/10/16 with successful conversion to normal sinus rhythm. He was monitored closely after that, he occasionally requiring IV Lasix for congestive heart failure. He remained in normal sinus rhythm. His Toprol-XL was decreased to his previous dose of 100 mg by mouth daily and his amiodarone was decreased to 200 mg by mouth daily after initial load. Decision was made to stop digoxin and spironolactone was also added due to the patient's reduced ejection fraction. He will be discharged to [facility] for rehab and he will follow up with his new PCP, Dr. Putnam, Dr. Borjas, as well as his proof press operator at [facility] for further treatment. TIME SPENT: Total time spent on this discharge 35 minutes. This is just a summary of the hospitalization. Please see the full medical record for further details. [id number]/[facility] #: [id number] MTDD
== END 2016-12-12 11:30 | disposition home health service (06) | DRG 308 ==
LOC: ED 15:35 → MEDTELE 19:00 → OBSVTOIN 12-08 11:00
PROVIDERS: ADMIT Internal Medicine; ATTEND Hospitalist
PROC: 4A12XM4 Monitoring of Cardiac Stress, External Approach (ICD-10-PCS; 2016-12-09)
PROC: 5A2204Z Restoration of Cardiac Rhythm, Single (ICD-10-PCS; principal; 2016-12-10)
DX: I48.0 Paroxysmal atrial fibrillation (principal); I50.43 Acute on chronic combined systolic (congestive) and diastolic (congestive) heart failure; J96.01 Acute respiratory failure with hypoxia; Q87.40 Marfan syndrome, unspecified; J98.11 Atelectasis; I11.0 Hypertensive heart disease with heart failure; I25.10 Atherosclerotic heart disease of native coronary artery without angina pectoris; I25.5 Ischemic cardiomyopathy; F31.9 Bipolar disorder, unspecified; F90.9 Attention-deficit hyperactivity disorder, unspecified type; Z79.01 Long term (current) use of anticoagulants; Z79.82 Long term (current) use of aspirin; I08.3 Combined rheumatic disorders of mitral, aortic and tricuspid valves; I77.819 Aortic ectasia, unspecified site; Z91.14 Patient's other noncompliance with medication regimen; Z95.5 Presence of coronary angioplasty implant and graft; Z87.440 Personal history of urinary (tract) infections; Z80.0 Family history of malignant neoplasm of digestive organs; Z82.49 Family history of ischemic heart disease and other diseases of the circulatory system; I48.92 Unspecified atrial flutter; E07.81 Sick-euthyroid syndrome; J45.909 Unspecified asthma, uncomplicated; Z86.711 Personal history of pulmonary embolism; N40.0 Benign prostatic hyperplasia without lower urinary tract symptoms; M19.90 Unspecified osteoarthritis, unspecified site; F41.0 Panic disorder [episodic paroxysmal anxiety]; H35.30 Unspecified macular degeneration; Z87.891 Personal history of nicotine dependence; E78.5 Hyperlipidemia, unspecified; D53.9 Nutritional anemia, unspecified
CPT/HCPCS: 36415; 71010; 71020; 71275; 78452; 80048; 80053; 80162; 81003; 81015; 82550; 82553; 83605; 83690; 83735; 83880; 84439; 84443; 84481; 84484; 85025; 85379; 85610; 85730; 86140; 87077; 87086; 87186; 93005; 93017; 93306; 94760; 96374; 99284; A9270-GY; A9502; G0378; G8978-GP-CJ; G8979-GP-CI; J1160; J1940; J2250; J2270; J2310; J2785; J3010; J3480; Q9967

== ENCOUNTER 2017-01-29 19:11 | Inpatient (IN) | payer MEDICARE, MEDICAID ==
[2017-01-29 20:29] LABS: Hematocrit 33 % (42-52); Hemoglobin 10.8 g/dl (14.0-18.0); Mean Corpuscular HGB Conc 32 g/dl (31-36); Mean Corpuscular Hemoglobin 28 pg (27-31); Mean Corpuscular Volume 86 fL (80-94); Mean Platelet Volume 7 um3 (7.4-10.4); Red Blood Count 3.89 10^6/ul (4.0-5.4); Red Cell Distribution Width 18 % (10.5-15); White Blood Count 6.4 10^3/ul (3.5-10.8)
[2017-01-29 20:41] LABS: ALT 8 U/L (7-52); Albumin 3.6 g/dL (3.2-5.2); Alkaline Phosphatase 77 U/L (34-104); BUN/Creatinine Ratio 17.7 (8-20); Blood Urea Nitrogen 20 mg/dL (6-24); CO2 Carbon Dioxide 26 mmol/L (22-32); Calcium 8.7 mg/dL (8.6-10.3); Chloride 103 mmol/L (101-111); EGFR African American 83.8 (>60); EGFR Non-African American 65.1 (>60); Globulin 3.6 g/dL (2-4); Glucose 83 mg/dL (70-100); Sodium 134 mmol/L (133-145); Total Protein 7.2 g/dL (6.4-8.9); Troponin I 0.03 ng/mL (<0.04)
[2017-01-29 20:49] LABS: Anion Gap 5 mmol/L (2-11)
--- NOTE | 2017-01-29 20:49 | RAD ---
INDICATION: Dizziness. COMPARISON: Comparison is made with a prior CT of the brain from May 02, 2016. TECHNIQUE: Contiguous axial sections of the brain were obtained from the skull base to the vertex without contrast. FINDINGS: The ventricles, cisterns and sulci are within normal limits. No significant focal abnormality or mass effect is seen. There is no evidence for hemorrhage. No significant focal osseous abnormality is seen. The visualized portion of the paranasal sinuses and mastoid air cells appear clear. IMPRESSION: NO EVIDENCE FOR GROSS ACUTE INFARCT, MASS EFFECT OR HEMORRHAGE.
--- NOTE | 2017-01-29 20:51 | RAD ---
INDICATION: Dizziness. COMPARISON: Comparison is made with a prior chest x-ray study from December 09, 2016. TECHNIQUE: A portable view of the chest was obtained. FINDINGS: The heart is mildly enlarged and unchanged. The lungs are clear. No pleural effusion is seen. There has been interval resolution of the previously noted bilateral infiltrates. IMPRESSION: NO EVIDENCE FOR ACUTE DISEASE.
--- NOTE | 2017-01-29 21:53 | ED ---
Annalisa العراقي SooYoung, scribed for Da Salazar on 01/29/17 at 1957 . Dizziness - HPI Summary HPI Summary: A 66 y/o M presents to ED with c/o ongoing dizziness onset today around approx 1600. He describes the dizziness as feeling off-balanced. He states a brief episode of dizziness early this AM. Associated sx: mild nausea, low HR, SOB. Denies weakness, numbness, CP, palpitations, LOC. PMHx: vertigo, afib, Marfan's syndrome, multiple stents; denies MD. Stress test last time admitted approx 6 weeks ago. He had a recent Watchman procedure, was going for an update visit next week. Pt is weaning off Warfarin. - History Of Current Complaint Chief Complaint: EDDizziness Stated Complaint: DIZZINESS/SOB/NAUSEA Time Seen by Provider: 01/29/17 19:52 Hx Obtained From: Patient, Family/Working Manager - Onset/Duration: Still Present Timing: Constant - since 1600 Severity Initially: Moderate Severity Currently: Moderate Associated Signs And Symptoms: Positive: Nausea - mild, SOB, Other: - pos: bradycardia; neg: weakness, numbness. Negative: Chest Pain, Palpitations - Allergies/Home Medications Allergies/Adverse Reactions: Allergies Allergy/AdvReac Type Severity Reaction Status Date / Time No Known Allergies Allergy Verified 12/07/16 16:27 Home Medications: Home Medications Ibuprofen TAB* [Motrin TAB* 600 MG] 600 mg PO Q8H PRN 01/29/17 [History Confirmed 01/29/17] Warfarin TAB(*) [Coumadin TAB(*)] 2 mg PO MOWEFR 01/29/17 [History Confirmed ] Warfarin TAB(*) [Coumadin TAB(*)] 3 mg PO SEE INSTRUCTIONS 01/29/17 [History Confirmed 01/29/17] PMH/Surg Hx/FS Hx/Imm Hx Previously Healthy: No Endocrine/Hematology History: Denies: Hx Diabetes Cardiovascular History: Reports: Hx Atrial Fibrillation, Hx Congenital Heart Disease - murmur, Hx Congestive Heart Failure, Hx Coronary Artery Disease - Stent x2 2007, Hx Hypercholesterolemia, Hx Hypertension, Other Cardiovascular Problems/Disorders - cardiomyopathy Denies: Hx Angina - denies, Hx Myocardial Infarction, Hx Pacemaker/ICD, Hx Valvular Heart Disease Respiratory History: Reports: Hx Pulmonary Embolism - possible, Other Respiratory Problems/Disorders - SOB D/T WEAKNESS Denies: Hx Asthma, Hx Chronic Obstructive Pulmonary Disease (COPD), Hx Pneumonia GI History: Reports: Hx Hiatal Hernia, Other GI Disorders - abdominal hernia History: Reports: Hx Benign Prostatic Hyperplasia - maybe Denies: Hx Dialysis Musculoskeletal History: Reports: Hx Arthritis, Hx Back Problems, Other Musculoskeletal History - Marfan's Syndrome Sensory History: Reports: Hx Contacts or Glasses, Hx Macular Degeneration - lense implants x2 Denies: Hx Hearing Aid Opthamlomology History: Reports: Hx Contacts or Glasses, Hx Macular Degeneration - lense implants x2 Neurological History: Reports: Hx Headaches, Hx Nerve Disease, Other Neuro Impairments/Disorders - MARFAN'S SYNDROME Denies: Hx Dementia, Hx Seizures Psychiatric History: Reports: Hx Anxiety, Hx Attention Deficit Hyperactivity Disorder, Hx Depression, Hx Panic Disorder - agorophobia, Hx Inpatient Treatment , Hx Community Mental Health Tx, Hx Bipolar Disorder - Surgical History Surgery Procedure, Year, and Place: left knee surgery, left wrist, abdominal hernia x2, cardiac cath 2009ish. dates unknown. STENTS X2 2007 Hx Anesthesia Reactions: No Infectious Disease History: Reports: Hx Shingles Denies: Hx Clostridium Difficile, Hx Hepatitis, Hx Human Immunodeficiency Virus (HIV), Hx of Known/Suspected MRSA, Hx Tuberculosis, History Other Infectious Disease, Traveled Outside the [place] in Last 30 Days - Family History Known Family History: Positive: Cardiac Disease - Social History Occupation: Disabled Lives: With Family - FRIEND Alcohol Use: Rare Alcohol Amount: 2 X YEAR Hx Substance Use: No Substance Use Type: Reports: None Hx Tobacco Use: Yes Smoking Status (MU): Former Smoker Type: Cigarettes Amount Used/How Often: 5-7/day Length of Time of Smoking/Using Tobacco: 16 years total Have You Smoked in the Last Year: No Review of Systems Negative: Fever Positive: Other - low HR. Negative: Palpitations, Chest Pain Positive: Shortness Of Breath Positive: Nausea - mild Neurological: Other - pos: dizziness Negative: Weakness, Numbness, Syncope - neg LOC All Other Systems Reviewed And Are Negative: Yes Physical Exam Triage Information Reviewed: Yes Vital Signs On Initial Exam: Initial Vitals Temp Pulse Resp BP Pulse Ox 97.6 F 45 20 105/86 94 01/29/17 19:19 01/29/17 19:19 01/29/17 19:19 01/29/17 19:19 01/29/17 19:19 Vital Signs Reviewed: Yes Appearance: Positive: Well-Appearing, No Pain Distress Skin: Positive: Warm, Skin Color Reflects Adequate Perfusion, Dry Head/Face: Positive: Normal Head/Face Inspection Eyes: Positive: EOMI, VENITA ENT: Positive: Other - dry mucous membranes Neck: Positive: Supple, Nontender Respiratory/Lung Sounds: Positive: Clear to Auscultation, Breath Sounds Present Cardiovascular: Positive: Pulses are Symmetrical in both Upper and Lower Extremities, Bradycardia Abdomen Description: Positive: Nontender, Soft Bowel Sounds: Positive: Present Musculoskeletal: Positive: Normal - splint on R ankle, Strength/ROM Intact Neurological: Positive: Normal, Sensory/Motor Intact, Alert, Oriented to Person Place, Time Diagnostics - Vital Signs Vital Signs Temp Pulse Resp BP Pulse Ox 01/29/17 19:19 97.6 F 45 20 105/86 94 - Laboratory Result Diagrams: 01/29/17 20:14 01/29/17 20:14 Lab Statement: Any lab studies that have been ordered have been reviewed, and results considered in the medical decision making process. - Radiology CXR Xray Interpretation: No Acute Changes - IMPRESSION: No evidence for acute dz. Radiology Interpretation Completed By: Radiologist - CT BRAIN CT CT Interpretation: No Acute Changes - IMPRESSION: No evidence for gross acute infarct, mass effect or hemorrhage. CT Interpretation Completed By: Radiologist - EKG 194 Cardiac Rate: Bradycardia - 45bpm EKG Rhythm: Sinus Bradycardia EKG Interpretation: ST changes in anterior lateral leads Dizzy Course/Dx - Course Course Of Treatment: Pt is a 66 y/o M presenting with ongoing dizziness onset today around approx 1600. He describes the dizziness as feeling off-balanced. He states a brief episode of dizziness early this AM. Associated sx: mild nausea , low HR, SOB. Denies weakness, numbness, CP, palpitations, LOC. PMHx: vertigo, afib, Marfan's syndrome, multiple stents; denies MD. Stress test last time admitted approx 6 weeks ago. He had a recent Watchman procedure, was going for an update visit next week. Pt is weaning off Warfarin. Blood work and lab results are without significant abnormalities except for elevated INR, APTT, BNP. Brain CT and CXR show no acute findings. Discussed pt with hospitalist, who will see pt in ED for possible admission. - Diagnoses Provider Diagnoses: Symptomatic bradycardia, Sick sinus syndrome, Dizziness - Provider Notifications Discussed Care Of Patient With: Chip Cope - hospitalist Time Discussed With Above Provider: 21:10 Instructed by Provider To: MD Will See In ED Discharge - Discharge Plan Condition: Stable Disposition: ADMITTED TO [facility] Referrals: David Putnam MD [Primary Care Provider] - The documentation as recorded by the Annalisa rosa SooYoung accurately reflects the service I personally performed and the decisions made by Marie buenrostro Emmanuel.
[2017-01-29 22:08] LABS: Magnesium 2.1 mg/dL (1.9-2.7)
[2017-01-30] MEDS: HYDROcodone/ACETAMIN 5-325 MG* 1 TAB PO PRN
[2017-01-30] MEDS: LORazepam TAB(*) 1 MG PO PRN ×2 (01:25→23:15)
[2017-01-30 05:55] LABS: BUN/Creatinine Ratio 16.2 (8-20); Calcium 8.8 mg/dL (8.6-10.3); EGFR African American 80.5 (>60); EGFR Non-African American 62.6 (>60); Potassium 4.2 mmol/L (3.5-5.0)
[2017-01-30] MEDS: Aspirin Low Dose CHEW TAB* 81 MG PO SCH (10:20)
[2017-01-30] MEDS: Sulfamethox/Trimethoprim DS 800/160* TAB PO SCH ×2 (10:20→20:13)
[2017-01-30] MEDS: Modafinil TAB* 100 MG PO SCH ×2 (10:20→18:00)
[2017-01-30] MEDS: Ramipril CAP* 5 MG PO SCH (10:20)
[2017-01-30] MEDS: Divalproex DR TAB(*) 500 MG PO SCH ×2 (10:20→20:13)
[2017-01-30] MEDS: Amiodarone TAB* 200 MG PO SCH (10:20)
[2017-01-30] MEDS: Spironolactone TAB* 25 MG PO SCH (10:20)
--- NOTE | 2017-01-30 10:29 | HP ---
CC: Dr. Putnam; Dr. Saha ADMISSION HISTORY AND PHYSICAL: DATE OF ADMISSION: 01/29/17 CHIEF COMPLAINT: Dizziness. HISTORY OF PRESENT ILLNESS: Mr. Farah is a 66-year-old man with a history of ischemic cardiomyopathy and paroxysmal atrial fibrillation, who presents to the emergency department this evening with dizziness that began around 4 p.m. He states he feels off balance when ambulating, but denies vertigo. He has not had any falls. He feels quite well when he is lying down. The patient denies any recent changes in his blood pressure or heart medications. He did have a Watchman device placed with Dr. Bagley in [place] approximately 6 weeks ago. He hopes he get off Coumadin if this device is successful, but he still remains on full anticoagulation at this time. He also reports a negative stress test about 6 weeks ago. Review of the hospital chart does show a cardiac nuclear stress test on 12/09/16 that showed decrease of the ejection fraction around 43% and a possible small area of ischemia in the septum, unchanged from prior exam. The patient denies any chest pain, palpitations, or shortness of breath. PAST MEDICAL HISTORY: Includes ischemic cardiomyopathy with ejection fraction in the past of 25% to 30%, now apparently improved. He also had coronary artery disease with 2 stents placed in 2007, paroxysmal atrial fibrillation, history of vestibular neuritis, bipolar disorder, Marfan syndrome, hypertension , and ADHD. PAST SURGICAL HISTORY: Includes Watchman device 6 weeks ago, ablation for atrial fibrillation in the past, as well as cervical spine fusion with Dr. Finn. MEDICATIONS: On admission are: 1. Tylenol 650 q.4 hours p.r.n. 2. Amiodarone 200 mg p.o. daily. 3. Aspirin 81 mg p.o. daily. 4. Valproic acid 500 mg p.o. b.i.d. 5. Vicodin 1 to 2 tabs p.o. q.6 hours p.r.n. pain. 6. Ibuprofen 600 mg p.o. q.8 hours p.r.n. pain. 7. Ativan 1 mg p.o. q.p.m. 8. Toprol-XL 100 mg p.o. daily. 9. Provigil 200 mg p.o. b.i.d. 10. Seroquel 50 mg p.o. q.h.s. 11. Altace 5 mg p.o. daily. 12. Aldactone 25 mg p.o. daily. 13. Warfarin 2 mg Wednesday, Wednesday, Wednesday, and 3 mg Wednesday, , Wednesday, and Wednesday. ALLERGIES: He has no known drug allergies. FAMILY HISTORY: Notable for father who had a myocardial infarction at age 66, mother had colon cancer. 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 He is . He has no children. He quit tobacco 15 years ago, rarely drinks alcohol, no recreational drugs. REVIEW OF SYSTEMS: The patient denies any fever, weight loss, or anorexia. The patient denies any chest pain or palpitations. The patient denies any cough , hemoptysis, or shortness of breath. The patient denies any nausea, vomiting, diarrhea, abdominal pain, or constipation. Remainder of the 14-point review of systems was negative other than mentioned in the HPI. PHYSICAL EXAMINATION GENERAL: He is an older man, lying in bed, in no acute distress. VITAL SIGNS: Temperature is 36.4, pulse is 43, respirations 16, blood pressure is 126/73, oxygen saturation 98% on room air. HEENT: Head is normocephalic, atraumatic. Sclerae anicteric. Pupils equal, round, reactive to light and accommodation. Oropharynx is moist. No lesions. NECK: No JVD, no carotid bruits, no thyromegaly. LUNGS: Clear to auscultation and percussion bilaterally. HEART: Bradycardic. Regular with 1/6 systolic murmur at the left upper sternal border without radiation. ABDOMEN: Soft, nontender, nondistended with positive bowel sounds. No hepatosplenomegaly. EXTREMITIES: No peripheral edema, dorsalis pedis pulses are 1+ bilaterally. NEUROLOGIC: Cranial nerves II through XII are intact. Motor strength is 5/5 throughout. Deep tendon reflexes are symmetric. He is alert and oriented x3, cooperative. LABORATORY DATA: Sodium 134, potassium 4.8, chloride 103, bicarb 26, BUN 20, creatinine 1.13, glucose 83, calcium 8.7, albumin 3.6, AST 14, ALT 8, bilirubin 0.3. White count 6.4, hemoglobin 10.8, hematocrit 33%, platelets 281. INR is 2.64, PTT is 36.9. EKG shows sinus bradycardia at 45 beats per minute with no ST-T wave changes to suggest ischemia. No second or third-degree heart block. Chest x-ray is negative for infiltrates or effusion. Head CT is negative for infarct or bleed. ASSESSMENT AND PLAN: A 66-year-old man with symptomatic bradycardia. It is unclear the etiology of his bradycardia as he has not had any recent changes to medications. It is possible that he had an ischemic event affecting th SA node or the AV conduction, and it is also possible that the Watchman device has had some untoward effect on his rhythm. In any case, he will be admitted for observation, and we will hold his beta-hussein. If his atrial fibrillation returns or his blood pressure and heart rate rise excessively, we can start him back on 25 mg of metoprolol and titrate from there. I would continue the amiodarone for rhythm control and continue his other cardiac medications as well. For his atrial fibrillation, his goal INR is 2 to 3 and his INR is in range, so we will continue the current dose of warfarin and recheck pro time daily. I discussed the case with Dr. Saha of Cardiology. She will see the patient for consultation given the recent Watchman procedure and the severity of his bradycardia. He may end up having tachy delvin syndrome and require pacemaker on that account. Code status is full. This was discussed with the patient and his , who is his healthcare proxy. DVT prophylaxis is not necessary as the patient is on full anticoagulation with warfarin. [id number]/CPS #: [id number] MTDD
--- NOTE | 2017-01-30 13:10 | PN ---
Subjective Date of Service: 01/30/17 Interval History: Patient seen this afternoon. Feels that his symptoms are improving although still present. Ambulated to the bathroom earlier and complained of some dizziness. When I stood him up in the room he said he felt slightly light- headed but it seemed improved. This is different from vertigo he has had in the past. Says his HR is usually in the 60s. Family History: Unchanged from Admission Social History: Unchanged from Admission Past Medical History: Unchanged from Admission Objective Active Medications: Hydrocodone Bitart/Acetaminophen ([place] 5-325 Tab*) 1 tab PO Q6H PRN PRN Reason: PAIN Last Admin: 01/30/17 00:00 Dose: 1 tab Amiodarone HCl (Cordarone Tab*) 200 mg PO DAILY [facility] Last Admin: 01/30/17 10:20 Dose: 200 mg Aspirin (Aspirin Low Dose Tab*) 81 mg PO DAILY [facility] Last Admin: 01/30/17 10:20 Dose: 81 mg Divalproex Sodium (Depakote Dr Tab(*)) 500 mg PO BID [facility] Last Admin: 01/30/17 10:20 Dose: 500 mg Lorazepam (Ativan Tab(*)) 1 mg PO BEDTIME PRN PRN Reason: SLEEP Last Admin: 01/30/17 01:25 Dose: 1 mg Modafinil (Provigil Tab*) 200 mg PO 0900,1800 [facility] Last Admin: 01/30/17 10:20 Dose: 200 mg Pharmacy Profile Note (Coumadin Daily Reminder*) 1 note FOLLOW UP 1700 [facility] Quetiapine Fumarate (Seroquel Tab*) 50 mg PO BEDTIME [facility] Ramipril (Altace Cap*) 5 mg PO DAILY [facility] Last Admin: 01/30/17 10:20 Dose: 5 mg Spironolactone (Aldactone Tab*) 25 mg PO DAILY [facility] Last Admin: 01/30/17 10:20 Dose: 25 mg Trimethoprim/Sulfamethoxazole (Bactrim Ds 800/160 Tab*) 1 tab PO BID [facility] Last Admin: 01/30/17 10:20 Dose: 1 tab Warfarin Sodium (Coumadin Tab(*)) 2 mg PO MoWeFr@1700 [facility] PRN Reason: Protocol Warfarin Sodium (Coumadin Tab(*)) 3 mg PO SuTuThSa@1700 [facility] PRN Reason: Protocol Vital Signs 01/29/17 01/29/17 01/29/17 21:30 22:06 23:45 Temperature 98.5 F 98.0 F Pulse Rate 43 45 44 Respiratory 16 16 16 Rate Blood Pressure 126/73 146/88 148/76 (mmHg) O2 Sat by Pulse 98 98 98 Oximetry 01/30/17 01/30/17 01/30/17 03:25 03:27 07:27 Temperature 97.9 F 97.7 F Pulse Rate 50 45 Respiratory 16 20 18 Rate Blood Pressure 111/49 104/55 (mmHg) O2 Sat by Pulse 94 96 Oximetry 01/30/17 01/30/17 09:58 11:22 Temperature 97.5 F Pulse Rate 50 54 Respiratory 18 Rate Blood Pressure 148/73 119/60 (mmHg) O2 Sat by Pulse 93 Oximetry Oxygen Devices in Use Now: None Appearance: Middle-aged, M, laying in bed in NAD Eyes: No Scleral Icterus Ears/Nose/Mouth/Throat: Mucous Membranes Moist Neck: NL Appearance and Movements; NL JVP Respiratory: Symmetrical Chest Expansion and Respiratory Effort, Clear to Auscultation Cardiovascular: NL Sounds; No Murmurs; No JVD, - - Bradycardic Abdominal: NL Sounds; No Tenderness; No Distention Lymphatic: No Cervical Adenopathy Extremities: - - Mild LE edema B/L, R ankle swelling (chronic) Skin: No Rash or Ulcers Neurological: Alert and Oriented x 3 Result Diagrams: 01/29/17 20:14 01/30/17 05:25 Assess/Plan/Problems-Billing Assessment: Light-headedness possible 2/2 bradycardia in a 66 yo M with hx of ICM, pAF with recent WATCHMAN device implanted, CAD, HTN, bipolar disorder, HTN - Patient Problems (1) Light headedness Current Visit: Yes Comment: Possibly due to bradycardia. Holding Metoporolol for now, HRs seem to be improving as do symptoms. Hold on formal Cardiology consult at this time although Dr. Saha is aware of the patient. Will check orthostatics. Continue to monitor on telemetry, ambulate. (2) Afib Current Visit: No Comment: Continue Amiodarone. Holding Metoprolol. Continue coumadin. S/P WATCHMAN device. (3) Bipolar 1 disorder Current Visit: No Comment: Continue depakote and seroquel ativan PRN bedtime (4) Hypertension Current Visit: No Comment: Continue spironolactone and ramipril. (5) DVT prophylaxis Current Visit: No Comment: Coumadin
[2017-01-30] MEDS: Warfarin TAB(*) 3 MG PO SCH (18:01)
[2017-01-30] MEDS ORDERED: QUEtiapine TAB* 25 MG PO SCH (21:00)
[2017-01-31] MEDS: HYDROcodone/ACETAMIN 5-325 MG* 1 TAB PO PRN (01:10)
[2017-01-31] MEDS: Aspirin Low Dose CHEW TAB* 81 MG PO SCH (08:56)
[2017-01-31] MEDS: Divalproex DR TAB(*) 500 MG PO SCH ×2 (08:56→22:00)
[2017-01-31] MEDS: Sulfamethox/Trimethoprim DS 800/160* TAB PO SCH (08:56)
[2017-01-31] MEDS: Spironolactone TAB* 25 MG PO SCH (08:56)
[2017-01-31] MEDS: Modafinil TAB* 100 MG PO SCH ×2 (08:57→17:20)
[2017-01-31] MEDS: Ramipril CAP* 5 MG PO SCH (08:57)
[2017-01-31] MEDS: Amiodarone TAB* 200 MG PO SCH (08:57)
--- NOTE | 2017-01-31 11:11 | PN ---
Subjective Date of Service: 01/31/17 Interval History: Patient seen this morning. Says he feels better than yesterday. Still with some slight dizziness when ambulating in the room but much improved, feels more steady. No chest pain or SOB. Family History: Unchanged from Admission Social History: Unchanged from Admission Past Medical History: Unchanged from Admission Objective Active Medications: Hydrocodone Bitart/Acetaminophen ([place] 5-325 Tab*) 1 tab PO Q6H PRN Amiodarone HCl (Cordarone Tab*) 200 mg PO DAILY [facility] Aspirin (Aspirin Low Dose Tab*) 81 mg PO DAILY [facility] Divalproex Sodium (Depakote Dr Tab(*)) 500 mg PO BID [facility] Lorazepam (Ativan Tab(*)) 1 mg PO BEDTIME PRN Modafinil (Provigil Tab*) 200 mg PO 0900,1800 [facility] Pharmacy Profile Note (Coumadin Daily Reminder*) 1 note FOLLOW UP 1700 [facility] Ramipril (Altace Cap*) 5 mg PO DAILY [facility] Spironolactone (Aldactone Tab*) 25 mg PO DAILY [facility] Trimethoprim/Sulfamethoxazole (Bactrim Ds 800/160 Tab*) 1 tab PO BID [facility] Warfarin Sodium (Coumadin Tab(*)) 2 mg PO MoWeFr@1700 [facility] Warfarin Sodium (Coumadin Tab(*)) 3 mg PO SuTuThSa@1700 [facility] Vital Signs 01/30/17 01/30/17 01/30/17 11:22 14:12 14:16 Temperature 97.5 F Pulse Rate 54 80 80 Respiratory 18 Rate Blood Pressure 119/60 130/90 130/90 (mmHg) O2 Sat by Pulse 93 97 Oximetry 01/30/17 01/30/17 01/30/17 15:11 19:51 20:00 Temperature 98.0 F 97.6 F Pulse Rate 60 54 Respiratory 16 16 16 Rate Blood Pressure 123/65 116/63 (mmHg) O2 Sat by Pulse 98 96 Oximetry 01/31/17 08:41 Temperature 98.2 F Pulse Rate 58 Respiratory 18 Rate Blood Pressure 135/70 (mmHg) O2 Sat by Pulse 94 Oximetry Oxygen Devices in Use Now: None Appearance: Middle-aged, M, laying in bed in NAD Eyes: No Scleral Icterus Ears/Nose/Mouth/Throat: Mucous Membranes Moist Neck: NL Appearance and Movements; NL JVP Respiratory: Symmetrical Chest Expansion and Respiratory Effort, Clear to Auscultation Cardiovascular: NL Sounds; No Murmurs; No JVD, - - Mild bradycardia Abdominal: NL Sounds; No Tenderness; No Distention Lymphatic: No Cervical Adenopathy Extremities: - - Mild LE edema, chronic R ankle edema Skin: No Rash or Ulcers Neurological: Alert and Oriented x 3 Result Diagrams: 01/29/17 20:14 01/30/17 05:25 Assess/Plan/Problems-Billing Assessment: Light-headedness possible 2/2 bradycardia in a 66 yo M with hx of ICM, pAF with recent WATCHMAN device implanted, CAD, HTN, bipolar disorder, HTN - Patient Problems (1) Light headedness Current Visit: Yes Comment: Possibly due to bradycardia. Has been off of Metoprolol, HRs seem to be close to his baseline. Symptoms improving, will ambulate the patient in the hallway to see how he feels and how his HR responds. May choose to restart low dose of Metoprolol. (2) Afib Current Visit: No Comment: Continue Amiodarone. Holding Metoprolol for now, may restart low dose. Continue coumadin. S/P WATCHMAN device. (3) Bipolar 1 disorder Current Visit: No Comment: Continue depakote ativan PRN bedtime (4) Hypertension Current Visit: No Comment: Continue spironolactone and ramipril. (5) DVT prophylaxis Current Visit: No Comment: Coumadin
[2017-01-31] MEDS ORDERED: Iohexol 350* (CONTRAST) 500 ML MDV IV ONE (13:16)
--- NOTE | 2017-01-31 14:09 | RAD ---
INDICATION: Dizziness. Visual change COMPARISON: CT brain January 29, 2017; CT neck April 08, 2016 TECHNIQUE: Axial source images were acquired with coronal and sagittal reconstructions. CT angiographic technique was utilized with injection of 80 mL Omnipaque 350. FINDINGS: Aortic arch: There are mild atherosclerotic calcifications of the arch and the great vessels arising from the arch. Right carotid: The common carotid artery, carotid bifurcation, extracranial portions of the internal carotid artery, carotid artery at the skull base, carotid siphon, and carotid termination appear widely patent. There are mild intimal calcifications at the carotid bifurcation and at the carotid siphon Left carotid:The common carotid artery, carotid bifurcation, extracranial portions of the internal carotid artery, carotid artery at the skull base, carotid siphon, and carotid termination appear widely patent. There are intimal calcifications at the level the bulb and carotid siphon. Right middle and anterior cerebral arteries: There are no CT angiographic abnormalities of the middle or anterior cerebral arteries. Left middle and anterior cerebral arteries: There are no CT angiographic abnormalities of the middle or anterior cerebral arteries Right vertebral: The CT angiographic appearance of the vertebral artery is widely patent. Left vertebral: The CT angiographic appearance of the vertebral artery is widely patent. Basilar artery: The basilar artery and basilar tip appear normal. Posterior cerebral arteries: The distal distribution of the right and left posterior cerebral arteries is normal. [place]: The CT angiographic appearance of the [place] is normal. Source images show no evidence of mass or adenopathy within the neck. There are findings of mild chronic maxillary antral sinusitis There are no focal parenchymal abnormalities or abnormal areas of enhancement. IMPRESSION: MILD ATHEROSCLEROTIC CHANGES. NO CT ANGIOGRAPHIC EVIDENCE OF BRANCH OCCLUSION, HEMODYNAMICALLY SIGNIFICANT STENOSIS OR ANEURYSM. CPT II Codes: 3100F PQRS
[2017-01-31 15:59] LABS: Urine Bacteria Absent (Absent); Urine Bilirubin Negative (Negative); Urine Glucose Negative (Negative); Urine Nitrite Negative (Negative)
[2017-01-31] MEDS: Warfarin TAB(*) 3 MG PO SCH (17:19)
[2017-01-31] MEDS ORDERED: cefTRIAXone VIAL(*) 1,000 MG in NS 0.9% 50 ML* 50 ML IVPB SCH (17:30)
[2017-01-31] MEDS: LORazepam TAB(*) 1 MG PO PRN (22:44)
[2017-02-01] MEDS: HYDROcodone/ACETAMIN 5-325 MG* 1 TAB PO PRN (04:10)
[2017-02-01] MEDS: Modafinil TAB* 100 MG PO SCH (09:56)
[2017-02-01] MEDS: Divalproex DR TAB(*) 500 MG PO SCH (09:56)
[2017-02-01] MEDS: Amiodarone TAB* 200 MG PO SCH (09:57)
[2017-02-01] MEDS: Aspirin Low Dose CHEW TAB* 81 MG PO SCH (09:57)
[2017-02-01] MEDS: Spironolactone TAB* 25 MG PO SCH (09:57)
[2017-02-01] MEDS: Ramipril CAP* 5 MG PO SCH (09:57)
--- NOTE | 2017-02-01 11:22 | PN ---
Subjective Date of Service: 02/01/17 Interval History: Patient seen this morning. Reports feeling 90-95% better today. Has been ambulating around the room with no issues. Hoping to go home, will plan to ambulate on the unit and see how he feels. Family History: Unchanged from Admission Social History: Unchanged from Admission Past Medical History: Unchanged from Admission Objective Active Medications: Hydrocodone Bitart/Acetaminophen ([place] 5-325 Tab*) 1 tab PO Q6H PRN PRN Reason: PAIN Last Admin: 02/01/17 04:10 Dose: 1 tab Amiodarone HCl (Cordarone Tab*) 200 mg PO DAILY [facility] Last Admin: 02/01/17 09:57 Dose: 200 mg Aspirin (Aspirin Low Dose Tab*) 81 mg PO DAILY [facility] Last Admin: 02/01/17 09:57 Dose: 81 mg Divalproex Sodium (Depakote Dr Tab(*)) 500 mg PO BID [facility] Last Admin: 02/01/17 09:56 Dose: 500 mg Ceftriaxone Sodium 1,000 mg/ (Sodium Chloride) 50 mls @ 200 mls/hr IVPB Q24H [facility] Last Admin: 01/31/17 17:29 Dose: 200 mls/hr Lorazepam (Ativan Tab(*)) 1 mg PO BEDTIME PRN PRN Reason: SLEEP Last Admin: 01/31/17 22:44 Dose: 1 mg Metoprolol Succinate (Toprol Xl Tab*) 25 mg PO DAILY [facility] Modafinil (Provigil Tab*) 200 mg PO 0900,1800 [facility] Last Admin: 02/01/17 09:56 Dose: 200 mg Pharmacy Profile Note (Coumadin Daily Reminder*) 1 note FOLLOW UP 1700 [facility] Last Admin: 01/31/17 17:20 Dose: 1 note Ramipril (Altace Cap*) 5 mg PO DAILY [facility] Last Admin: 02/01/17 09:57 Dose: 5 mg Spironolactone (Aldactone Tab*) 25 mg PO DAILY [facility] Last Admin: 02/01/17 09:57 Dose: 25 mg Warfarin Sodium (Coumadin Tab(*)) 2 mg PO MoWeFr@1700 [facility] PRN Reason: Protocol Warfarin Sodium (Coumadin Tab(*)) 3 mg PO SuTuThSa@1700 [facility] PRN Reason: Protocol Last Admin: 01/31/17 17:19 Dose: 3 mg Vital Signs 08/20/17 08/20/17 08/20/17 15:33 19:21 20:00 Temperature 98.2 F 98.4 F Pulse Rate 64 67 Respiratory 20 16 18 Rate Blood Pressure 111/54 114/73 (mmHg) O2 Sat by Pulse 97 94 Oximetry 01/31/17 01/31/17 02/01/17 22:44 23:52 00:44 Temperature 98.2 F Pulse Rate 61 Respiratory 20 16 20 Rate Blood Pressure 121/78 (mmHg) O2 Sat by Pulse 95 Oximetry 02/01/17 02/01/17 02/01/17 03:36 04:10 07:52 Temperature 98.3 F 97.6 F Pulse Rate 67 61 Respiratory 16 18 18 Rate Blood Pressure 134/69 125/70 (mmHg) O2 Sat by Pulse 95 92 Oximetry Oxygen Devices in Use Now: None Appearance: Middle-aged, M, laying in bed in NAD Eyes: No Scleral Icterus Ears/Nose/Mouth/Throat: Mucous Membranes Moist Neck: NL Appearance and Movements; NL JVP Respiratory: Symmetrical Chest Expansion and Respiratory Effort, Clear to Auscultation Cardiovascular: NL Sounds; No Murmurs; No JVD, RRR Abdominal: NL Sounds; No Tenderness; No Distention Lymphatic: No Cervical Adenopathy Extremities: - - Mild LE edema, chronic R ankle edema Skin: No Rash or Ulcers Neurological: Alert and Oriented x 3, - - CN II-XII intact, strength 5/5 throughout B/L UEs and LEs, sensation intact and symmetric throughout, finger-to -nose intact Result Diagrams: 01/29/17 20:14 01/30/17 05:25 Assess/Plan/Problems-Billing Assessment: Light-headedness possible 2/2 bradycardia in a 66 yo M with hx of ICM, pAF with recent WATCHMAN device implanted, CAD, HTN, bipolar disorder, HTN - Patient Problems (1) Light headedness Current Visit: Yes Comment: Possibly due to bradycardia. Symptoms seem to be improving. CTA H/N negative. Will resume low dose of metoprolol. Ambulate again today. Maybe some contribution from UTI. (2) Afib Current Visit: No Comment: Continue Amiodarone. Resume metoprolol and decreased dose of 25 mg daily. Continue coumadin. S/P WATCHMAN device. (3) Bipolar 1 disorder Current Visit: No Comment: Continue depakote ativan PRN bedtime (4) Hypertension Current Visit: No Comment: Continue spironolactone and ramipril. (5) UTI (urinary tract infection) Current Visit: No Comment: Has been on Bactrim, ROMEO is actually high for this. Switched to CTX on 01/31. (6) DVT prophylaxis Current Visit: No Comment: Coumadin
[2017-02-01] MEDS ORDERED: Metoprolol Succinate XL TAB* 25 MG PO SCH (12:00)
[2017-02-01 12:42] VITALS: BP 118/71
[2017-02-01] MEDS ORDERED: Warfarin TAB(*) 2 MG PO SCH (17:00)
--- NOTE | 2017-02-03 05:43 | DS ---
CC: Dr. Putnam * DISCHARGE SUMMARY: DATE OF ADMISSION: 01/29/17 DATE OF DISCHARGE: 02/01/17 PRIMARY CARE PHYSICIAN: Dr. Putnam. PRINCIPAL DISCHARGE DIAGNOSES: 1. Symptomatic bradycardia. 2. Urinary tract infection. 3. Dizziness. SECONDARY DIAGNOSES: 1. Ischemic cardiomyopathy with recently improved ejection fraction. 2. Atrial fibrillation, status post Watchman device. 3. Coronary artery disease. 4. Marfan syndrome. 5. Bipolar disorder. 6. Hypertension. 7. Attention-deficit hyperactivity disorder. DISCHARGE MEDICATIONS: 1. Toprol-XL 25 mg by mouth daily. 2. Cefpodoxime 200 mg by mouth 2 times daily. 3. Amiodarone 200 mg by mouth daily. 4. Aspirin 81 mg by mouth daily. 5. Depakote 500 mg by mouth daily. 6. Ramipril 5 mg by mouth daily. 7. Spironolactone 25 mg by mouth daily. 8. Lorazepam 1 mg by mouth at bedtime as needed for sleep. 9. Warfarin 2 mg Wednesday, Wednesday, and Wednesday; 3 mg Wednesday, , Wednesday and Wednesday. 10. Modafinil 200 mg by mouth 2 times daily. 11. [place] 1 to 2 tablets by mouth every 6 hours as needed for pain. 12. Tylenol 650 mg by mouth every 4 hours as needed for pain. 13. Ibuprofen 600 mg by mouth every 8 hours as needed for pain. STUDIES DONE DURING HOSPITALIZATION: Chest x-ray, impression: No evidence for acute disease. CT of the brain, impression: No evidence for gross acute infarct, mass effect or hemorrhage. CTA head and neck, impression: Mild atherosclerotic changes. No CT angiographic evidence of branch occlusion, hemodynamically significant stenosis or aneurysm. HISTORY OF PRESENT ILLNESS AND HOSPITAL SUMMARY: Please see the full history and physical by Dr. Chip Cope for full details. Briefly, Mr. Farah is a 66 -year- old male with the past medical history as above who presented to the hospital with dizziness. In the emergency department, the patient was found to be significantly bradycardic with heart rates in the 40s. The patient's metoprolol was held as this was felt to be the etiology of his symptoms. Over the following days, his heart rate improved and his dizziness also slowly improved. However, it did persist a bit more than what we would have expected. The CTA of his head and neck did not show any evidence of occlusion of any neck or intracranial vessels. The patient was treated for a UTI as an outpatient with Bactrim. On review of the sensitivities of the E. coli, the ROMEO for Bactrim was 20. He was switched to ceftriaxone while in the hospital and then cefpodoxime on discharge for better coverage as this could have been contributing to his symptoms. On the day of discharge, the patient felt close to baseline, he stated about 90% to 95% . He was restarted on a low dose of Toprol of 25 mg by mouth daily, which has decreased from his previous dose of 100. He tolerated this well, was ambulating around the unit with appropriate rise in his heart rate but no uncontrolled tachycardia. The patient will be discharged on the current regimen. He has close outpatient followup with his PCP and Cardiology. The patient also stated he had some recent worsening vision problems and he will follow up with an promotions specialist. Total time spent on this discharge was 45 minutes. This is a summary of the hospitalization. Please see the full medical record for further details. [id number]/[facility] #: [id number] MTDD
== END 2017-02-01 16:25 | disposition home or self-care (01) | DRG 309 ==
LOC: ED 19:11 → MEDTELE 21:22 → OBSVTOIN 01-31 11:47
PROVIDERS: ADMIT Internal Medicine; ATTEND Hospitalist
DX: R00.1 Bradycardia, unspecified (principal); N39.0 Urinary tract infection, site not specified; Q87.40 Marfan syndrome, unspecified; I11.9 Hypertensive heart disease without heart failure; T44.7X5A Adverse effect of beta-adrenoreceptor antagonists, initial encounter; X58.XXXA Exposure to other specified factors, initial encounter; B96.20 Unspecified Escherichia coli [E. coli] as the cause of diseases classified elsewhere; R42 Dizziness and giddiness; I25.5 Ischemic cardiomyopathy; I48.91 Unspecified atrial fibrillation; I25.10 Atherosclerotic heart disease of native coronary artery without angina pectoris; F31.9 Bipolar disorder, unspecified; F90.9 Attention-deficit hyperactivity disorder, unspecified type; Z79.01 Long term (current) use of anticoagulants; Y92.9 Unspecified place or not applicable; Z79.1 Long term (current) use of non-steroidal anti-inflammatories (NSAID); Z79.82 Long term (current) use of aspirin; Z79.899 Other long term (current) drug therapy; Z82.49 Family history of ischemic heart disease and other diseases of the circulatory system; Z80.0 Family history of malignant neoplasm of digestive organs; Z87.891 Personal history of nicotine dependence
CPT/HCPCS: 36415; 70450; 70496; 70498; 71010; 80048; 80053; 80164; 81003; 81015; 83735; 83880; 84484; 85025; 85610; 85730; 87086; 93005; A9270-GY; G0378; J0696; Q9967

== ENCOUNTER 2017-03-06 10:31 | Inpatient (IN) | payer MEDICARE, MEDICAID ==
[2017-03-06] MEDS ORDERED: NS 0.9% 1000 ML* 1,000 ML IV ONE (10:43)
[2017-03-06 11:15] LABS: Hematocrit 34 % (42-52); Hemoglobin 10.9 g/dl (14.0-18.0); Mean Corpuscular HGB Conc 32 g/dl (31-36); Mean Corpuscular Hemoglobin 30 pg (27-31); Mean Corpuscular Volume 93 fL (80-94); Mean Platelet Volume 7 um3 (7.4-10.4); Red Blood Count 3.65 10^6/ul (4.0-5.4); Red Cell Distribution Width 19 % (10.5-15); White Blood Count 7.4 10^3/ul (3.5-10.8)
[2017-03-06 11:19] LABS: Urine Bilirubin Negative (Negative); Urine Glucose Negative (Negative); Urine Nitrite Negative (Negative)
[2017-03-06 11:20] LABS: PCO2 Arterial 54 mmHg (35-45)
[2017-03-06 11:26] LABS: ALT 14 U/L (7-52); AST 33 U/L (13-39); Albumin 3.9 g/dL (3.2-5.2); Alkaline Phosphatase 77 U/L (34-104); Anion Gap 8 mmol/L (2-11); Blood Urea Nitrogen 37 mg/dL (6-24); CO2 Carbon Dioxide 28 mmol/L (22-32); Calcium 9.2 mg/dL (8.6-10.3); Chloride 102 mmol/L (101-111); Creatine Kinase 594 U/L (10-223); EGFR African American 58.6 (>60); EGFR Non-African American 45.6 (>60); Globulin 3.2 g/dL (2-4); Glucose 94 mg/dL (70-100); Magnesium 2.3 mg/dL (1.9-2.7); Potassium 4.7 mmol/L (3.5-5.0); Sodium 138 mmol/L (133-145); Total Protein 7.1 g/dL (6.4-8.9)
[2017-03-06 11:33] LABS: Benzodiazepine Urine Screen None Detected (None Detect)
[2017-03-06 11:33] LABS: Troponin I 0.06 ng/mL (<0.04)
--- NOTE | 2017-03-06 11:36 | RAD ---
Indication: Altered mental status. Cardiac disease. Comparison: January 29, 2017 Technique: Upright AP 1115 hours Report: Suboptimal inspiration for this patient based on comparison with the January 29, 2017 exam with resulting crowding of the pulmonary markings and subsegmental atelectasis. Negative for pleural effusion or pneumothorax. Upper normal heart size accounting for portable AP technique and hypoventilation. Unremarkable central pulmonary vasculature and mediastinal contours. IMPRESSION: Hypoventilated exam for this patient based on comparison with the prior exam. Subsegmental atelectasis.
[2017-03-06 11:37] LABS: Acetaminophen < 15 mcg/mL; Alcohol < 10 mg/dL (<10); Salicylate < 2.50 mg/dL (<30)
[2017-03-06 11:48] LABS: TSH (Thyroid Stimulating Horm) 1.97 mcIU/mL (0.34-5.60)
--- NOTE | 2017-03-06 12:04 | RAD ---
Indication: Altered mental status. Lethargic. Comparison: January 29, 2017 CT. Technique: Noncontrast CT vertex of skull through foramen magnum. Report: The sulci, ventricles, and basal cisterns are normal for age. Ferguson matter white matter differentiation is preserved without evidence for edema. No intra or extra axial hemorrhage, mass, or fluid collection detected. Unremarkable visualized orbital contents. Unremarkable calvarium and skull base. Unremarkable scalp. The visualized paranasal sinuses and mastoid air spaces are clear. IMPRESSION: Negative unenhanced head CT for age.
[2017-03-06] MEDS: Heparin VIAL(*) 5000 UNITS/ML VIAL (FIVE THOUSAND) SUBCUT SCH ×2 (14:20→21:22)
--- NOTE | 2017-03-06 15:36 | HP ---
CC: Dr. Putnam* [facility] MEDICINE HISTORY AND PHYSICAL: DATE OF ADMISSION: 03/06/17. PRIMARY CARE PHYSICIAN: Dr. Putnam. ATTENDING PHYSICIAN: Dr. Peyman Bullock* (dictation provided by Uma Carter NP ). CHIEF COMPLAINT: Altered mental status. HISTORY OF PRESENT ILLNESS: Mr. Juan Farah is a 66-year-old male with a past medical history of bipolar disorder with bari, Marfan syndrome, ischemic congestive heart failure, ejection fraction 25% to 30%, paroxysmal AFib, on warfarin, who presented to the hospital today after being found down on the floor by his unresponsive. The patient reportedly has been taking hydrocodone for pain in his ankles. His reports that he asked for pain medication in the middle of the night about midnight, she thought he only took 2 pills, but he may have taken more. At 5 o'clock, he asked for some Ativan, again he may have taken more than prescribed. At around 9, she woke up to a loud scream and found him lying on the ground at the bottom of the landing of the stairs. He did not appear injured, but was unresponsive. She called EMS and when they arrive he was given Narcan without any significant improvement in his mentation. Mrs. Farah states that when she then looked around the home later , she noticed that there were Ativan tabs lying randomly around the house as well. Mr. Farah had a CT of the brain today, which showed no abnormality. He had chest x- ray which showed no acute abnormality. His labs were remarkable only for a slight elevation in his BUN and creatinine to 1.54 and 37 respectively. He is anemic with hemoglobin 10.9 but this is his baseline. His tox screen is positive for opiates and cannabinoids, but no benzodiazepines were actually detected despite the fact that he takes these on a regular basis. His troponin was 0.06. His EKG showed no evidence of ischemia when compared to previous. Mr. Farah remained mostly unresponsive except to deep painful stimulation. PAST MEDICAL HISTORY: 1. Ischemia cardiomyopathy with an ejection fraction 25% to 30%. Last echocardiogram from November 2016, AFib, status post Watchman device. 2. Coronary artery disease with stent placed x2 in 2007. 3. Paroxysmal atrial fibrillation, on warfarin therapy. 4. History of vestibular neuritis. 5. Bipolar disorder. 6. Marfan syndrome. 7. Hypertension. 8. ADHD. 9. History of cervical spine fusion with Dr. Finn. MEDICATIONS: The patient is unable to confirm his medications nor is his . This list has been approximated from the [facility] and from [employer]. Per this, patient is on: 1. Amiodarone 200 mg p.o. daily. 2. Aspirin 81 mg p.o. daily. 3. Hydrocodone with acetaminophen 5/325 one to two tablets p.o. q. 6 hours p.r.n. 4. Lorazepam 1 mg p.o. at bedtime p.r.n. 5. Metoprolol succinate 25 mg p.o. daily. 6. Modafinil 200 mg p.o. b.i.d. 7. Ramipril 5 mg p.o. daily. 8. Spironolactone 25 mg p.o. daily. 9. Warfarin as directed. I will note the patient in the past has been on Depakote DR 500 mg p.o. b.i.d., but this is not noted on his prescriptions from [facility]. ALLERGIES: No known drug allergies. FAMILY HISTORY: Unobtainable. SOCIAL HISTORY: Unobtainable. He does live with his . REVIEW OF SYSTEMS: Unobtainable. PHYSICAL EXAMINATION GENERAL: Mr. Farah is lying in the bed. He is snoring loudly. He is protecting his airway well. He is not apneic. VITAL SIGNS: Temperature 100.7, heart rate 60, respiratory rate 17, O2 saturation 100% on room air, blood pressure 125/73. LUNGS: Clear to auscultation bilaterally. No accessory muscle use and good aeration. HEART: S1, S2. No murmur, rubs or gallop and regular. ABDOMEN: Soft, nontender, with bowel sounds positive x4. EXTREMITIES No cyanosis or edema. NEUROLOGIC: Again, he is responsible with a deep painful stimulation 1.1 hours in the room. He did awaken very briefly, opening his eyes and then fell back to sleep. Again, snoring loudly. He has been seen to move all extremities spontaneously, but is not following commands. SKIN: Intact. DIAGNOSTIC STUDIES/LAB DATA: Sodium 138, potassium 4.7, chloride 102, serum bicarbonate 28, BUN 37, creatinine 1.54, glucose 94, lactic acid 1.4. Troponin 0.06. CK 594. WBC 7.4, hemoglobin 10.9, hematocrit 34, platelet count 198. ABG shows a pH of 7.33, pCO2 54, pO2 62. Urine shows no evidence of infection. Again, tox screen shows positive opiates and cannabinoids but no benzodiazepines. CT brain is read as follows: Negative unenhanced head CT for age. Chest x-ray read as follows: "Hyperventilated exam for this patient based on comparison with prior exam, sub-segmental atelectasis." ASSESSMENT: Mr. Farah is a 66-year-old male with past medical history of bipolar disorder with bari, Marfan syndrome, hypertension, ischemic cardiomyopathy with ejection fraction of 20% to 25% and atrial fibrillation, on warfarin and amiodarone, who presents to the hospital today after being found unconscious at home by his . Per her report, he seems to have perhaps taken additional medications and been disoriented through the night. At this point, he is maintaining his airway well. Our plans will be for observation in the hospital for the followin. Altered mental status: At this point I see no other cause of his altered mentation other than possible ingestion of additional benzodiazepines and opiates, as well as cannabis. He shows no evidence of infection other than a very mild elevation in his temperature. He has no evidence of stroke. His labs are unremarkable. I note that the patient did receive Narcan without good effect. This is likely secondary to the fact perhaps he was taking benzodiazepines, although benzodiazepine are negative on his toxicology screen. I think the plan will be to observe and to provide further workup as indicated. 2. Elevated troponin. Plan to repeat, patient will be monitored on telemetry unit. I will note the patient has had chronically elevated troponin likely secondary to his ischemic cardiomyopathy. 3. Atrial fibrillation. Plan to continue amiodarone and warfarin, when patient is able to take oral intake. 4. Ischemic cardiomyopathy with hypertension. Plan to continue with metoprolol succinate, ramipril, and spironolactone. Patient is able to take oral intake. 5. DVT prophylaxis with heparin subcu. 6. Code status: Full code. TIME SPENT: Approximately 60 minutes was spent on the admission of this patient , more than half of the time was spent with the patient and his at the bedside reviewing the events leading up to this hospitalization, performing the physical examination, and reviewing the plan of care. UMA CARTER, ENROLLMENT MANAGEMENT MANAGER [id number]/[facility] #: [id number] [facility] N[facility]SING FACILITYIsauro
[2017-03-06] MEDS: MODAFINIL 100 MG PO SCH (21:22)
[2017-03-07] MEDS: Heparin VIAL(*) 5000 UNITS/ML VIAL (FIVE THOUSAND) SUBCUT SCH ×3 (05:38→20:57)
[2017-03-07 05:58] LABS: Hematocrit 31 % (42-52); Hemoglobin 10.4 g/dl (14.0-18.0); Mean Corpuscular HGB Conc 33 g/dl (31-36); Mean Corpuscular Hemoglobin 31 pg (27-31); Mean Corpuscular Volume 92 fL (80-94); Mean Platelet Volume 7 um3 (7.4-10.4); Red Blood Count 3.39 10^6/ul (4.0-5.4); Red Cell Distribution Width 19 % (10.5-15); White Blood Count 4.3 10^3/ul (3.5-10.8)
[2017-03-07 06:13] LABS: BUN/Creatinine Ratio 26.5 (8-20); Calcium 8.7 mg/dL (8.6-10.3); EGFR African American 98.7 (>60); EGFR Non-African American 76.8 (>60); Potassium 4.2 mmol/L (3.5-5.0)
[2017-03-07] MEDS ORDERED: HYDROcodone/ACETAMIN 5-325 MG* 1 TAB PO PRN (07:38)
[2017-03-07] MEDS: Metoprolol Succinate XL TAB* 25 MG PO SCH (08:15)
[2017-03-07] MEDS: MODAFINIL 100 MG PO SCH ×2 (08:15→20:57)
[2017-03-07] MEDS: Spironolactone TAB* 25 MG PO SCH (08:15)
[2017-03-07] MEDS: Ramipril CAP* 5 MG PO SCH (08:16)
--- NOTE | 2017-03-07 08:35 | PN ---
Subjective Date of Service: 03/07/17 Interval History: Mr. Farah states that he doesn't remember what happened yesterday at all. I described to him the events as told to me by his and he is surprised. He doesn't remember taking any extra lorazepam or hydrocodone but states that he is very sensitive to this medications and would not be surprised if even one extra pill would make him unresponsive. He denies any complaint today including chest pain, SOB, nausea, or abdominal pain. Objective Active Medications: Hydrocodone Bitart/Acetaminophen ([place] 5-325 Tab*) 1 tab PO Q4H PRN Hydrocodone Bitart/Acetaminophen ([place] 5-325 Tab*) 2 tab PO Q4H PRN Heparin Sodium (Porcine) (Heparin Vial(*)) 5,000 units SUBCUT Q8HR [facility] Sodium Chloride (Ns 0.9% 1000 Ml*) 1,000 mls @ 75 mls/hr IV PER RATE [facility] Metoprolol Succinate (Toprol Xl Tab*) 25 mg PO DAILY [facility] Modafinil (Provigil Tab*) 200 mg PO BID [facility] Ramipril (Altace Cap*) 5 mg PO DAILY [facility] Spironolactone (Aldactone Tab*) 25 mg PO DAILY [facility] Vital Signs: Temp Pulse Resp BP Pulse Ox 97.8 F 58 20 156/82 96 03/07/17 07:49 03/07/17 07:49 03/07/17 08:19 03/07/17 07:49 03/07/17 07:49 Oxygen Devices in Use Now: None Appearance: Male sitting up in chair in NAD Eyes: No Scleral Icterus Ears/Nose/Mouth/Throat: Mucous Membranes Moist Neck: Trachea Midline Respiratory: Symmetrical Chest Expansion and Respiratory Effort, Clear to Auscultation Cardiovascular: NL Sounds; No Murmurs; No JVD, No Edema Abdominal: NL Sounds; No Tenderness; No Distention Lymphatic: No Cervical Adenopathy Extremities: No Edema Skin: No Rash or Ulcers Neurological: Alert and Oriented x 3, NL Muscle Strength and Tone Nutrition: Taking PO's Result Diagrams: 03/07/17 05:37 03/07/17 05:37 Assess/Plan/Problems-Billing Assessment: Mr. Farah is a 66 yo male with a PMH of bipolar disorder with bari and Marfan' s syndrome who was admitted on 03/06/17 after being found unresponsive at home by his with suspected accidental overdose of hydrocodone and lorazepam. - Patient Problems (1) Overdose Comment: - Patient awake and oriented, at baseline. - Based on report from appears to have been an accidental overdose, patient has no memory of those events. (2) Afib Comment: - Continue Amiodarone and metoprolol. No longer on warfarin (3) Bipolar affective disorder, current episode manic Comment: - At baseline (4) Hypertension Comment: - SBP 150s. - Continue spironolactone and ramipril. (5) Full code status (6) DVT prophylaxis Comment: - Heparin SQ. Status and Disposition: OBV. Anticipate discharge to home tomorrow.
[2017-03-07] MEDS: NS 0.9% 1000 ML* 1,000 ML IV SCH (09:46)
--- NOTE | 2017-03-07 16:18 | ED ---
Alana العراقي Edward, scribed for David Angeles MD on 03/06/17 at 1032 . Altered Mental Status - HPI Summary HPI Summary: 66 y/o male BIBA c/o AMS starting this morning. Pt slipped off one step this morning. Associated sx: lethargic. Pt possibly took too many pills this morning. PMHx marfan's syndrome. LEVEL 5 CAVEAT DUE TO AMS. - History Of Current Complaint Stated Complaint: AMS Hx From Patient Unobtainable Due To: Altered Mental Status Onset/Duration: Unknown - Allergies/Home Medications Allergies/Adverse Reactions: Allergies Allergy/AdvReac Type Severity Reaction Status Date / Time No Known Allergies Allergy Verified 03/06/17 11:22 Home Medications: Home Medications HYDROcodone/ACETAMIN 5-325 MG* [[place] 5-325 TAB*] 1 - 2 tab PO Q6H PRN 03/06/17 [History Confirmed 03/06/17] Modafinil [Modafinil] 200 mg PO BID 03/06/17 [History Confirmed 03/06/17] PMH/Surg Hx/FS Hx/Imm Hx Previously Healthy: No Endocrine/Hematology History: Denies: Hx Diabetes Cardiovascular History: Reports: Hx Atrial Fibrillation, Hx Congenital Heart Disease - murmur, Hx Congestive Heart Failure, Hx Coronary Artery Disease - Stent x2 2007, Hx Hypercholesterolemia, Hx Hypertension, Other Cardiovascular Problems/Disorders - cardiomyopathy Denies: Hx Angina - denies, Hx Myocardial Infarction, Hx Pacemaker/ICD, Hx Valvular Heart Disease Respiratory History: Reports: Hx Pulmonary Embolism - possible, Other Respiratory Problems/Disorders - SOB D/T WEAKNESS Denies: Hx Asthma, Hx Chronic Obstructive Pulmonary Disease (COPD), Hx Pneumonia GI History: Reports: Hx Hiatal Hernia, Other GI Disorders - abdominal hernia History: Reports: Hx Benign Prostatic Hyperplasia - maybe Denies: Hx Dialysis Musculoskeletal History: Reports: Hx Arthritis, Hx Back Problems, Other Musculoskeletal History - Marfan's Syndrome Sensory History: Reports: Hx Contacts or Glasses - reading, Hx Macular Degeneration - lense implants x2 Denies: Hx Hearing Aid Opthamlomology History: Reports: Hx Contacts or Glasses - reading, Hx Macular Degeneration - lense implants x2 Neurological History: Reports: Hx Headaches, Hx Nerve Disease, Other Neuro Impairments/Disorders - MARFAN'S SYNDROME Denies: Hx Dementia, Hx Seizures Psychiatric History: Reports: Hx Anxiety, Hx Attention Deficit Hyperactivity Disorder, Hx Depression, Hx Panic Disorder - agorophobia, Hx Inpatient Treatment , Hx Community Mental Health Tx, Hx Bipolar Disorder - Surgical History Surgery Procedure, Year, and Place: left knee surgery, left wrist, abdominal hernia x2, cardiac cath 2009ish. dates unknown. STENTS X2 2008 Hx Anesthesia Reactions: No Infectious Disease History: Reports: Hx Shingles Denies: Hx Clostridium Difficile, Hx Hepatitis, Hx Human Immunodeficiency Virus (HIV), Hx of Known/Suspected MRSA, Hx Tuberculosis, History Other Infectious Disease - Family History Known Family History: Positive: Cardiac Disease - Social History Alcohol Use: Rare Alcohol Amount: 2 X YEAR Hx Substance Use: No Substance Use Type: Reports: None Hx Tobacco Use: Yes Smoking Status (MU): Former Smoker Type: Cigarettes Amount Used/How Often: 5-7/day Length of Time of Smoking/Using Tobacco: 16 years total Have You Smoked in the Last Year: No Review of Systems - ROS Summary Review of Systems Summary: LEVEL 5 CAVEAT DUE TO AMS Neurological: Other - Lethargic, AMS All Other Systems Reviewed And Are Negative: No Physical Exam - Summary Physical Exam Summary: LEVEL 5 CAVEAT DUE TO AMS VITAL SIGNS: Reviewed. GENERAL: ~Patient is a well-developed and nourished male who is lying comfortable in the stretcher. ~Patient is not in any acute respiratory distress. HEAD AND FACE: No signs of trauma. ~No ecchymosis, hematomas or skull depressions. No sinus tenderness. EYES: PERRLA, EOMI x 2, No injected conjunctiva, no nystagmus. No photophobia. EARS: Hearing grossly intact. Ear canals and tympanic membranes are within normal limits. MOUTH: Oropharynx within normal limits. NECK: Supple, trachea is midline, no adenopathy, no JVD, no carotid bruit, no c- spine tenderness, neck with full ROM. No meningeal signs, no Kernig's or brudzinskis signs. CHEST: Symmetric, no tenderness at palpation LUNGS: Clear to auscultation bilaterally. No wheezing or crackles. CVS: Regular rate and rhythm, S1 and S2 present, no murmurs or gallops appreciated. ABDOMEN: Soft, non-tender. No signs of distention. No rebound no guarding, and no masses palpated. Bowel sounds are normal. EXTREMITIES: FROM in all major joints, no edema, no cyanosis or clubbing. NEURO: Pt is obtunded and responds to painful stimulation. No acute neurological deficits. Speech is normal and follows commands. SKIN: Dry and warm GCS: 13 Triage Information Reviewed: Yes Vital Signs Reviewed: Yes Diagnostics - Laboratory Result Diagrams: 03/06/17 10:48 03/06/17 10:48 Lab Statement: Any lab studies that have been ordered have been reviewed, and results considered in the medical decision making process. - Radiology CXR Xray Interpretation: Positive (See Comments) - Hypoventilated exam for this patient based on comparison with the prior exam. Subsegmental atelectasis. ED PHYSCIAN AGREES Radiology Interpretation Completed By: Radiologist - CT BRAIN CT CT Interpretation: No Acute Changes - Negative unenhanced head CT for age. ED PHYSICIAN AGREEABLE CT Interpretation Completed By: Radiologist - EKG 1 EKG Interpretation: 10:44 - SINUS BRADYCARDIA @ 58 BPM. NORMAL AXIS EKG Comparison: No Significant Change - 01/29/17 Altered Mental Statu Course/Dx - Course Assessment/Plan: 66 y/o male BIBA c/o AMS starting this morning. Pt slipped off one step this morning. Associated sx: lethargic. Pt possibly took too many pills this morning. PMHx marfan's syndrome. EKG 10:44 - SINUS BRADYCARDIA @ 58 BPM. NORMAL AXIS. NO SIGNIFICANT CHANGE FROM 01/29/17. CXR SHOWS Hypoventilated exam for this patient based on comparison with the prior exam. Subsegmental atelectasis. ED PHYSCIAN AGREES. BRAIN CT SHOWS Negative unenhanced head CT for age. Test results show mild chronic anemia, renal insufficiency, CPK 594 and troponin 0.06. UA (-) for UTI. Urine toxicology (+) opiates and marijuana. ABG shows pH 7.33, pCO2 64, pO2 62 and O2 sat 92.7. In the ED course the pt was given fluids and placed on 2 L O2. Pt is alert and hem stable. Head ct and cxr negative. At this point I discussed the case with Dr. Bullock who accepted the pt for admission. LEVEL 5 CAVEAT DUE TO AMS. - Diagnoses Discharge Diagnoses: Altered mental status, Rhabdomyolysis, Renal insufficiency, Polysubstance abuse , Dehydration - Provider Notifications Discussed Care Of Patient With: Peyman Stallone Time Discussed With Above Provider: 12:26 Instructed by Provider To: Admit As Inpatient Discharge - Discharge Plan Condition: Stable Disposition: ADMITTED TO [facility] The documentation as recorded by the Alana rosa Edward accurately reflects the service I personally performed and the decisions made by me, David Angeles MD.
[2017-03-07] MEDS ORDERED: Divalproex DR TAB(*) 500 MG PO SCH ×2 (21:00)
[2017-03-08] MEDS: HYDROcodone/ACETAMIN 5-325 MG* 1 TAB PO PRN ×3 (00:16→08:56)
[2017-03-08] MEDS: NS 0.9% 1000 ML* 1,000 ML IV SCH (04:14)
[2017-03-08] MEDS: Heparin VIAL(*) 5000 UNITS/ML VIAL (FIVE THOUSAND) SUBCUT SCH ×2 (05:34→15:04)
--- NOTE | 2017-03-08 07:33 | PN ---
Subjective Date of Service: 03/08/17 Interval History: Mr. Farah denies complaint and is eager for discharge to home. I have spoke with his at length. She notes that Mr. Farah is not able to open his medication bottles himself. She is committed to dispensing his hydrocodone and lorazepam to him each time and recapping the bottle to ensure that he is taking them appropriately. Objective Active Medications: Hydrocodone Bitart/Acetaminophen ([place] 5-325 Tab*) 1 tab PO Q4H PRN Hydrocodone Bitart/Acetaminophen ([place] 5-325 Tab*) 2 tab PO Q4H PRN Clopidogrel Bisulfate (Plavix Tab*) 75 mg PO DAILY [facility] Divalproex Sodium (Depakote Dr Tab(*)) 500 mg PO BEDTIME [facility] Heparin Sodium (Porcine) (Heparin Vial(*)) 5,000 units SUBCUT Q8HR [facility] Sodium Chloride (Ns 0.9% 1000 Ml*) 1,000 mls @ 75 mls/hr IV PER RATE [facility] Metoprolol Succinate (Toprol Xl Tab*) 25 mg PO DAILY [facility] Modafinil (Provigil Tab*) 200 mg PO BID [facility] Ramipril (Altace Cap*) 5 mg PO DAILY [facility] Spironolactone (Aldactone Tab*) 25 mg PO DAILY [facility] Vital Signs 03/07/17 03/07/17 03/07/17 07:49 08:19 10:19 Temperature 97.8 F Pulse Rate 58 Respiratory 20 20 18 Rate Blood Pressure 156/82 (mmHg) O2 Sat by Pulse 96 Oximetry 03/07/17 03/07/17 03/07/17 11:47 16:26 21:07 Temperature 98.0 F 97.5 F 97.7 F Pulse Rate 60 60 61 Respiratory 20 16 20 Rate Blood Pressure 154/83 147/78 160/88 (mmHg) O2 Sat by Pulse 91 94 95 Oximetry 03/07/17 03/07/17 03/08/17 21:10 23:58 00:16 Temperature 99.5 F Pulse Rate 63 Respiratory 18 20 Rate Blood Pressure 150/85 166/97 (mmHg) O2 Sat by Pulse 93 Oximetry 03/08/17 03/08/17 03/08/17 02:16 03:54 04:39 Temperature 98.3 F Pulse Rate 53 Respiratory 20 18 20 Rate Blood Pressure 163/87 (mmHg) O2 Sat by Pulse 96 Oximetry Oxygen Devices in Use Now: None Appearance: Male ambulating in room in no acute distress Eyes: No Scleral Icterus Ears/Nose/Mouth/Throat: Mucous Membranes Moist Neck: Trachea Midline Respiratory: Symmetrical Chest Expansion and Respiratory Effort, Clear to Auscultation Cardiovascular: NL Sounds; No Murmurs; No JVD, No Edema Abdominal: NL Sounds; No Tenderness; No Distention Lymphatic: No Cervical Adenopathy Extremities: No Edema Skin: No Rash or Ulcers Neurological: Alert and Oriented x 3, NL Muscle Strength and Tone Nutrition: Taking PO's Result Diagrams: 03/07/17 05:37 03/07/17 05:37 Assess/Plan/Problems-Billing Assessment: Mr. Farah is a 66 yo male with a PMH of bipolar disorder with bari and Marfan' s syndrome who was admitted on 03/06/17 after being found unresponsive at home by his with suspected accidental overdose of hydrocodone and lorazepam. - Patient Problems (1) Overdose Comment: - Patient awake and oriented, at baseline. - Based on report from appears to have been an accidental overdose, patient has no memory of those events. - committed to helping him with meds to ensure safety. (2) Afib Comment: - Continue Amiodarone and metoprolol. No longer on warfarin (3) Bipolar affective disorder, current episode manic Comment: - At baseline (4) Hypertension Comment: - SBP 150s. - Continue spironolactone and ramipril. (5) Full code status (6) DVT prophylaxis Comment: - Heparin SQ. Status and Disposition: Inpatient. Discharge to home.
[2017-03-08] MEDS: Spironolactone TAB* 25 MG PO SCH (08:56)
[2017-03-08] MEDS: Metoprolol Succinate XL TAB* 25 MG PO SCH (08:56)
[2017-03-08] MEDS: Ramipril CAP* 5 MG PO SCH (08:56)
[2017-03-08] MEDS: MODAFINIL 100 MG PO SCH (08:56)
[2017-03-08] MEDS ORDERED: Clopidogrel TAB* 75 MG PO SCH (09:00)
[2017-03-08 11:29] VITALS: BP 149/81
--- NOTE | 2017-03-09 05:16 | DS ---
CC: David Putnam MD* DISCHARGE SUMMARY: DATE OF ADMISSION: 03/06/17 DATE OF DISCHARGE: 03/08/17 PRIMARY CARE PHYSICIAN: Dr. David Putnam. ATTENDING PHYSICIAN: Dr. Cris Dupont DO* (dictation provided by Uma Carter NP) PRIMARY DIAGNOSIS: Accidental overdose on hydrocodone and lorazepam. SECONDARY DIAGNOSES: 1. History of ischemic cardiomyopathy with an ejection fraction of 25% to 30%. 2. Atrial fibrillation, status post Watchman device. 3. Coronary artery disease, status post stent placement x2 in 2007. 4. History of vestibular neuritis. 5. Bipolar disorder. 6. Marfan syndrome. 7. Hypertension. 8. Attention deficit hyperactive disorder. 9. History of cervical spine fusion with Dr. Finn. MEDICATIONS: At the time of discharge: 1. Clopidogrel 75 mg p.o. daily. 2. Aspirin 81 mg p.o. daily. 3. Divalproex DR 500 mg p.o. b.i.d. 4. Lorazepam 1 mg p.o. bedtime p.r.n. 5. Modafinil 200 mg p.o. daily. 6. Spironolactone 25 mg p.o. daily. 7. Metoprolol succinate 25 mg p.o. daily. 8. Hydrocodone/acetaminophen 1 to 2 tabs p.o. q.6 hours p.r.n. 9. Amiodarone 200 mg p.o. daily. 10. Ramipril 5 mg p.o. daily. HOSPITAL COURSE: Mr. Farah is a 66-year-old male with a past medical history of ischemic cardiomyopathy; coronary artery disease with stent; AFib, with Watchman device; and bipolar disorder who presents to the hospital on 03/06/17, was unresponsive. Please see the dictated H and P from myself for complete details. In brief, the patient was found unresponsive by his at home. Collateral information obtained after admission from the , noted that the patient had been on hydrocodone and lorazepam and also noted that she had found pills of lorazepam laying around the home haphazardly. Her suspicion was that he had perhaps gotten mildly confused and taken excess number of one or both of these medications. In the emergency room, he had an anemia, which was chronic. His electrolytes were normal. He had no white count. He had a positive opioid and cannabinoid in his urine. CT of the brain showed no acute abnormality. Mr. Farah awoke later in the evening and was a little bit sleepy, but appropriate. By the following day, he was oriented x3 and back to his baseline. I discussed the situation with him and he said he had no recollection of the events as described to me by his . Mr. Farah denies any suicidal ideation. Mr. Farah is doing well today and he is ambulating in the [place] and with no complaints. I spoke with his and she notes that the patient is not able to open his pill bottles by himself.. She states that now, in addition to helping him open the bottle, she will actually dispense the medication to him and close the bottle again so that he is able to take his medications more safely with her supervision. Our plans are for discharge to home. DISPOSITION: Home. DIET: Low fat, low salt. ACTIVITY: As tolerated. FOLLOWUP: Please follow up with the patient's primary care, Dr. Putnam, per routine and the patient will also be following with the psychiatrist regarding finding alternate agents other than Ativan to help with his chronic insomnia. TIME SPENT: Approximately 60 minutes was spent in discharge of this patient, more than half that time spent with the patient at bedside reviewing the events leading up to this hospitalization, performing physical examination, and reviewing my plan of care. UMA CARTER NP [id number]/CPS #: [id number] JANEY
== END 2017-03-08 16:35 | disposition home or self-care (01) | DRG 918 ==
LOC: ED 10:31 → MEDTELE 12:30 → OBSVTOIN 03-07 10:00
PROVIDERS: ADMIT Internal Medicine; ATTEND Hospitalist
DX: T40.2X1A Poisoning by other opioids, accidental (unintentional), initial encounter (principal); Q87.40 Marfan syndrome, unspecified; I11.9 Hypertensive heart disease without heart failure; F31.10 Bipolar disorder, current episode manic without psychotic features, unspecified; R41.82 Altered mental status, unspecified; T42.4X1A Poisoning by benzodiazepines, accidental (unintentional), initial encounter; Y92.009 Unspecified place in unspecified non-institutional (private) residence as the place of occurrence of the external cause; X58.XXXA Exposure to other specified factors, initial encounter; I25.5 Ischemic cardiomyopathy; I48.91 Unspecified atrial fibrillation; I25.10 Atherosclerotic heart disease of native coronary artery without angina pectoris; F90.9 Attention-deficit hyperactivity disorder, unspecified type; R74.8 Abnormal levels of other serum enzymes; Z95.5 Presence of coronary angioplasty implant and graft; Z79.01 Long term (current) use of anticoagulants; Z79.82 Long term (current) use of aspirin; Z79.899 Other long term (current) drug therapy
CPT/HCPCS: 36415; 36600; 70450; 71010; 80048; 80053; 80307; 80320; 80329; 81003; 82140; 82550; 82803; 83605; 83735; 84443; 84484; 85025; 85610; 93005; A9270-GY; G0378; G0480; J1644

== ENCOUNTER 2017-04-11 12:32 | Emergency (ER) | payer MEDICARE, MEDICAID ==
[2017-04-11 13:50] LABS: Hematocrit 37 % (42-52); Hemoglobin 12.2 g/dl (14.0-18.0); Mean Corpuscular HGB Conc 33 g/dl (31-36); Mean Corpuscular Hemoglobin 31 pg (27-31); Mean Corpuscular Volume 92 fL (80-94); Mean Platelet Volume 8 um3 (7.4-10.4); Red Blood Count 3.98 10^6/ul (4.0-5.4); Red Cell Distribution Width 16 % (10.5-15); White Blood Count 6.8 10^3/ul (3.5-10.8)
[2017-04-11] MEDS ORDERED: LORazepam TAB(*) 1 MG PO ONE ×2 (13:56→19:27)
[2017-04-11 14:06] LABS: ALT 11 U/L (7-52); AST 31 U/L (13-39); Albumin 4.2 g/dL (3.2-5.2); Alkaline Phosphatase 104 U/L (34-104); Anion Gap 8 mmol/L (2-11); BUN/Creatinine Ratio 30.2 (8-20); Blood Urea Nitrogen 42 mg/dL (6-24); CO2 Carbon Dioxide 29 mmol/L (22-32); Calcium 9.4 mg/dL (8.6-10.3); Chloride 107 mmol/L (101-111); EGFR Non-African American 51.3 (>60); Globulin 3.3 g/dL (2-4); Glucose 102 mg/dL (70-100); Potassium 4.1 mmol/L (3.5-5.0); Sodium 144 mmol/L (133-145); Total Protein 7.5 g/dL (6.4-8.9)
[2017-04-11 14:45] LABS: Acetaminophen < 15 mcg/mL; Alcohol < 10 mg/dL (<10); Salicylate < 2.50 mg/dL (<30)
[2017-04-11 14:56] LABS: TSH (Thyroid Stimulating Horm) 0.78 mcIU/mL (0.34-5.60)
[2017-04-11] MEDS ORDERED: Haloperidol TAB* 5 MG PO ONE (19:27)
[2017-04-11] MEDS ORDERED: diPHENhydraMINE PO* 50 MG PO ONE (19:28)
[2017-04-12 03:11] VITALS: BP 119/62
--- NOTE | 2017-04-12 06:41 | ED ---
Obey العراقي Rebecca, scribed for Da Salazar on 04/12/17 at 0640 . Progress - Progress Note Progress Note: Pt was signed out by Dr Angeles, pending disposition, awaiting MHE completion. Course/Dx - Course Course Of Treatment: Pt was signed out by Dr Angeles, pending disposition, awaiting MHE completion. At shift change, MHE completion is still in progress. Pt will be signed out, pending disposition. - Diagnoses Provider Diagnoses: Depression The documentation as recorded by the Obey rosa Rebecca accurately reflects the service I personally performed and the decisions made by Marie buenrostro Emmanuel.
[2017-04-12 07:24] LABS: Urine Bilirubin Negative (Negative); Urine Glucose 1+(50 mg/dL) (Negative); Urine Nitrite Negative (Negative)
[2017-04-12 07:38] LABS: Benzodiazepine Urine Screen None Detected (None Detect)
--- NOTE | 2017-04-12 13:09 | ED ---
Alana العراقي Edward, scribed for David Angeles MD on 04/11/17 at 1330 . Psychiatric Complaint - HPI Summary HPI Summary: 66 y/o male presents to the ED c/o sleep disturbance for the past few days. PT CAN NOT STOP TALKING AND IS RESTLESS. PT KEEPS GOING ON AND ON ABOUT GRANDIOSE THOUGHTS. Pt was recently stressed because his dog was hit by a car. The pt states that the pt's is concerned for her. Associated sx: manic behavior, anxious. - History Of Current Complaint Chief Complaint: EDMentalHealth Time Seen by Provider: 04/11/17 13:17 Hx Obtained From: Patient Onset/Duration: Lasting Days Character: Manic Aggravating Factor(s): Recent Stress Associated Signs And Symptoms: Positive: Sleep Disturbance Has Suicidal: Denies: Thoughts Has Homicidal: Denies: Thoughts - Allergies/Home Medications Allergies/Adverse Reactions: Allergies Allergy/AdvReac Type Severity Reaction Status Date / Time No Known Allergies Allergy Verified 03/06/17 11:22 PMH/Surg Hx/FS Hx/Imm Hx Previously Healthy: No Endocrine/Hematology History: Denies: Hx Diabetes Cardiovascular History: Reports: Hx Atrial Fibrillation, Hx Congenital Heart Disease - murmur, Hx Congestive Heart Failure, Hx Coronary Artery Disease - Stent x2 2007, Hx Hypercholesterolemia, Hx Hypertension, Other Cardiovascular Problems/Disorders - cardiomyopathy Denies: Hx Angina - denies, Hx Myocardial Infarction, Hx Pacemaker/ICD, Hx Valvular Heart Disease Respiratory History: Reports: Hx Pulmonary Embolism - possible, Other Respiratory Problems/Disorders - SOB D/T WEAKNESS Denies: Hx Asthma, Hx Chronic Obstructive Pulmonary Disease (COPD), Hx Pneumonia GI History: Reports: Hx Hiatal Hernia, Other GI Disorders - abdominal hernia History: Reports: Hx Benign Prostatic Hyperplasia - maybe Denies: Hx Dialysis Musculoskeletal History: Reports: Hx Arthritis, Hx Back Problems, Other Musculoskeletal History - Marfan's Syndrome Sensory History: Reports: Hx Contacts or Glasses - reading, Hx Macular Degeneration - lense implants x2 Denies: Hx Hearing Aid Opthamlomology History: Reports: Hx Contacts or Glasses - reading, Hx Macular Degeneration - lense implants x2 Neurological History: Reports: Hx Headaches, Hx Nerve Disease, Other Neuro Impairments/Disorders - MARFAN'S SYNDROME Denies: Hx Dementia, Hx Seizures Psychiatric History: Reports: Hx Anxiety, Hx Attention Deficit Hyperactivity Disorder, Hx Depression, Hx Panic Disorder - agorophobia, Hx Inpatient Treatment , Hx Community Mental Health Tx, Hx Bipolar Disorder - Surgical History Surgery Procedure, Year, and Place: left knee surgery, left wrist, abdominal hernia x2, cardiac cath 2009ish. dates unknown. STENTS X2 2008 Hx Anesthesia Reactions: No Infectious Disease History: No Infectious Disease History: Reports: Hx Shingles Denies: Hx Clostridium Difficile, Hx Hepatitis, Hx Human Immunodeficiency Virus (HIV), Hx of Known/Suspected MRSA, Hx Tuberculosis, History Other Infectious Disease, Traveled Outside the [place] in Last 30 Days - Family History Known Family History: Positive: Cardiac Disease - Social History Alcohol Use: Rare Alcohol Amount: 2 X YEAR Hx Substance Use: No Substance Use Type: Reports: None Hx Tobacco Use: Yes Smoking Status (MU): Former Smoker Type: Cigarettes Amount Used/How Often: 5-7/day Length of Time of Smoking/Using Tobacco: 16 years total Have You Smoked in the Last Year: No Review of Systems Constitutional: Negative Eyes: Negative ENT: Negative Cardiovascular: Negative Respiratory: Negative Gastrointestinal: Negative Genitourinary: Negative Musculoskeletal: Negative Skin: Negative Neurological: Negative Positive: Anxious, Other - Sleep disturbance All Other Systems Reviewed And Are Negative: Yes Physical Exam - Summary Physical Exam Summary: VITAL SIGNS: Reviewed. GENERAL: Patient is a well-developed and nourished male who is lying comfortable in the stretcher. Patient is not in any acute respiratory distress. HEAD AND FACE: No signs of trauma. No ecchymosis, hematomas or skull depressions. No sinus tenderness. EYES: PERRLA, EOMI x 2, No injected conjunctiva, no nystagmus. EARS: Hearing grossly intact. Ear canals and tympanic membranes are within normal limits. MOUTH: Oropharynx within normal limits. NECK: Supple, trachea is midline, no adenopathy, no JVD, no carotid bruit, no c- spine tenderness, neck with full ROM. CHEST: Symmetric, no tenderness at palpation LUNGS: Clear to auscultation bilaterally. No wheezing or crackles. CVS: Regular rate and rhythm, S1 and S2 present, no murmurs or gallops appreciated. ABDOMEN: Soft, non-tender. No signs of distention. No rebound no guarding, and no masses palpated. Bowel sounds are normal. EXTREMITIES: FROM in all major joints, no edema, no cyanosis or clubbing. NEURO: Alert and oriented x 3. No acute neurological deficits. Speech is normal and follows commands. SKIN: Dry and warm PSYCH: anxious , agitated, tangential thoughts, word salad Triage Information Reviewed: Yes Vital Signs On Initial Exam: Initial Vitals Temp Pulse Resp BP Pulse Ox 99.0 F 75 16 190/100 96 04/11/17 12:41 04/11/17 12:41 04/11/17 12:41 04/11/17 12:41 04/11/17 12:41 Vital Signs Reviewed: Yes Diagnostics - Vital Signs Vital Signs Temp Pulse Resp BP Pulse Ox 04/11/17 12:41 99.0 F 75 16 190/100 96 - Laboratory Lab Results: Lab Results 04/11/17 04/11/17 04/12/17 Range/Units 13:30 13:30 05:25 WBC 6.8 (3.5-10.8) 10^3/ul RBC 3.98 L (4.0-5.4) 10^6/ul Hgb 12.2 L (14.0-18.0) g/dl Hct 37 L (42-52) % MCV 92 (80-94) fL MCH 31 (27-31) pg MCHC 33 (31-36) g/dl RDW 16 H (10.5-15) % Plt Count 193 (150-450) 10^3/ul MPV 8 (7.4-10.4) um3 Neut % (Auto) 63.6 (38-83) % Lymph % (Auto) 22.4 L (25-47) % Parmer % (Auto) 9.9 H (1-9) % Eos % (Auto) 3.4 (0-6) % Baso % (Auto) 0.7 (0-2) % Absolute Neuts (auto) 4.3 (1.5-7.7) 10^3/ul Absolute Lymphs (auto) 1.5 (1.0-4.8) 10^3/ul Absolute Monos (auto) 0.7 (0-0.8) 10^3/ul Absolute Eos (auto) 0.2 (0-0.6) 10^3/ul Absolute Basos (auto) 0 (0-0.2) 10^3/ul Absolute Nucleated RBC 0 10^3/ul Nucleated RBC % 0 Sodium 144 (133-145) mmol/L Potassium 4.1 (3.5-5.0) mmol/L Chloride 107 (101-111) mmol/L Carbon Dioxide 29 (22-32) mmol/L Anion Gap 8 (2-11) mmol/L BUN 42 H (6-24) mg/dL Creatinine 1.39 H (0.67-1.17) mg/dL Est GFR ( Amer) 66.0 (>60) Est GFR (Non-Af Amer) 51.3 (>60) BUN/Creatinine Ratio 30.2 H (8-20) Glucose 102 H (70-100) mg/dL Calcium 9.4 (8.6-10.3) mg/dL Total Bilirubin 0.40 (0.2-1.0) mg/dL AST 31 (13-39) U/L ALT 11 (7-52) U/L Alkaline Phosphatase 104 (34-104) U/L Total Protein 7.5 (6.4-8.9) g/dL Albumin 4.2 (3.2-5.2) g/dL Globulin 3.3 (2-4) g/dL Albumin/Globulin Ratio 1.3 (1-3) TSH 0.78 (0.34-5.60) mcIU/mL Urine Color Urine Appearance Urine pH (5-9) Ur Specific [place] (1.010-1.030) Urine Protein (Negative) Urine Ketones (Negative) Urine Blood (Negative) Urine Nitrate (Negative) Urine Bilirubin (Negative) Urine Urobilinogen (Negative) Ur Leukocyte Esterase (Negative) Urine Glucose (Negative) Urine Ascorbic Acid (Negative) Salicylates < 2.50 (<30) mg/dL Urine Opiates Screen None detected (None Detect) Acetaminophen < 15 mcg/mL Ur Barbiturates Screen None detected (None Detect) Valproic Acid 95.0 (50-100) mcg/mL Ur Phencyclidine Scrn None detected (None Detect) Ur Amphetamines Screen None detected (None Detect) U Benzodiazepines Scrn None detected (None Detect) Urine Cocaine Screen None detected (None Detect) U Cannabinoids Screen Presumptive positive H (None Detect) Serum Alcohol < 10 (<10) mg/dL 04/12/17 Range/Units 05:25 WBC (3.5-10.8) 10^3/ul RBC (4.0-5.4) 10^6/ul Hgb (14.0-18.0) g/dl Hct (42-52) % MCV (80-94) fL MCH (27-31) pg MCHC (31-36) g/dl RDW (10.5-15) % Plt Count (150-450) 10^3/ul MPV (7.4-10.4) um3 Neut % (Auto) (38-83) % Lymph % (Auto) (25-47) % Parmer % (Auto) (1-9) % Eos % (Auto) (0-6) % Baso % (Auto) (0-2) % Absolute Neuts (auto) (1.5-7.7) 10^3/ul Absolute Lymphs (auto) (1.0-4.8) 10^3/ul Absolute Monos (auto) (0-0.8) 10^3/ul Absolute Eos (auto) (0-0.6) 10^3/ul Absolute Basos (auto) (0-0.2) 10^3/ul Absolute Nucleated RBC 10^3/ul Nucleated RBC % Sodium (133-145) mmol/L Potassium (3.5-5.0) mmol/L Chloride (101-111) mmol/L Carbon Dioxide (22-32) mmol/L Anion Gap (2-11) mmol/L BUN (6-24) mg/dL Creatinine (0.67-1.17) mg/dL Est GFR ( Amer) (>60) Est GFR (Non-Af Amer) (>60) BUN/Creatinine Ratio (8-20) Glucose (70-100) mg/dL Calcium (8.6-10.3) mg/dL Total Bilirubin (0.2-1.0) mg/dL AST (13-39) U/L ALT (7-52) U/L Alkaline Phosphatase (34-104) U/L Total Protein (6.4-8.9) g/dL Albumin (3.2-5.2) g/dL Globulin (2-4) g/dL Albumin/Globulin Ratio (1-3) TSH (0.34-5.60) mcIU/mL Urine Color Marlene Urine Appearance Turbid Urine pH 5.0 (5-9) Ur Specific [place] 1.027 (1.010-1.030) Urine Protein Negative (Negative) Urine Ketones Trace H (Negative) Urine Blood Negative (Negative) Urine Nitrate Negative (Negative) Urine Bilirubin Negative (Negative) Urine Urobilinogen Negative (Negative) Ur Leukocyte Esterase Negative (Negative) Urine Glucose 1+(50 mg/dl) H (Negative) Urine Ascorbic Acid * H (Negative) Salicylates (<30) mg/dL Urine Opiates Screen (None Detect) Acetaminophen mcg/mL Ur Barbiturates Screen (None Detect) Valproic Acid (50-100) mcg/mL Ur Phencyclidine Scrn (None Detect) Ur Amphetamines Screen (None Detect) U Benzodiazepines Scrn (None Detect) Urine Cocaine Screen (None Detect) U Cannabinoids Screen (None Detect) Serum Alcohol (<10) mg/dL Result Diagrams: 04/11/17 13:30 04/11/17 13:30 Lab Statement: Any lab studies that have been ordered have been reviewed, and results considered in the medical decision making process. Course/Dx - Course Assessment/Plan: 66 y/o male presents to the ED c/o sleep disturbance for the past few days. PT CAN NOT STOP TALKING AND IS RESTLESS. PT KEEPS GOING ON AND ON ABOUT GRANDIOSE THOUGHTS. Pt was recently stressed because his dog was hit by a car. The pt states that the pt's is concerned for her. Associated sx: manic behavior, anxious. Pt is medically cleared for MHU evaluation by Dr. Angeles at 15:45. Pt is medically cleared. Pt is encouraged to increase water intake; his BUN and creatinine are elevated, possibly secondary to dehydration. Otherwise the pt is awaiting MHE and will be signed out to evening attending to f/u the MHE. Patient signed out to Next ER attending for following MHE advised. - Differential Dx/Clinical Impression Differential Diagnosis/HQI/PQRI: Positive: Anxiety, Depression Provider Diagnosis: Depression Discharge - Discharge Plan Condition: Stable Disposition: OTHER Discharge Disposition Comment: Pt signed out to the evening attendant pending MHE Referrals: David Putnam MD [Primary Care Provider] - The documentation as recorded by the Alana rosa Edward accurately reflects the service I personally performed and the decisions made by Karthik buenrostro Walter, MD.
--- NOTE | 2017-04-13 09:10 | ED ---
Luciano العراقي Angela, scribed for David Angeles MD on 04/12/17 at 1846 . Progress - Progress Note Progress Note: Pt was signed out by Dr. Salazar, pending disposition, awaiting MHE. Pt was seen and evaluated by Dr. Batista, and recommends discharge. Pt will be going home in a Medicaid cab. Pt will be discharged to home in stable condition with a diagnosis of bipolar disorder. Course/Dx - Diagnoses Provider Diagnoses: Bipolar disorder The documentation as recorded by the Luciano rosa Angela accurately reflects the service I personally performed and the decisions made by Karthik buenrostro Walter, MD.
== END 2017-04-12 09:15 ==
LOC: ED 12:32
DX: F32.9 Major depressive disorder, single episode, unspecified (principal); F51.19 Other hypersomnia not due to a substance or known physiological condition; I48.91 Unspecified atrial fibrillation; I25.10 Atherosclerotic heart disease of native coronary artery without angina pectoris; I10 Essential (primary) hypertension; Z95.5 Presence of coronary angioplasty implant and graft; E78.00 Pure hypercholesterolemia, unspecified; Z86.711 Personal history of pulmonary embolism; F41.9 Anxiety disorder, unspecified; F90.9 Attention-deficit hyperactivity disorder, unspecified type; Z87.891 Personal history of nicotine dependence
CPT/HCPCS: 36415; 80053; 80164; 80307; 80320; 80329; 81003; 84443; 85025; 99285; A9270-GY; G0480

== ENCOUNTER 2017-05-26 12:57 | Emergency (ER) | payer MEDICARE, MEDICAID ==
--- NOTE | 2017-05-26 14:42 | RAD ---
HISTORY: Hypertension COMPARISONS: March 06, 2017 VIEWS: 4: Frontal dual-energy and lateral views of the chest. FINDINGS: CARDIOMEDIASTINAL SILHOUETTE: The cardiomediastinal silhouette is normal. BETHEL: The bethel are normal. PLEURA: The costophrenic angles are sharp. No pleural abnormalities are noted. LUNG PARENCHYMA: There is hyperinflation with flattening of the diaphragm and expansion of the AP diameter of the chest. ABDOMEN: The upper abdomen is clear. There is no subphrenic gas. BONES AND SOFT TISSUES: There is post surgical change to the right shoulder. OTHER: None. IMPRESSION: HYPERINFLATION, CONSISTENT WITH COPD. NO ACTIVE CARDIOPULMONARY DISEASE.
--- NOTE | 2017-05-26 15:20 | ED ---
Adelfo العراقي Benjamin, scribed for Garrett Mcadams MD on 05/26/17 at 1413 . Hypertension - HPI Summary HPI Summary: 66yo male c/o having high BP over the last few weeks. Pt's systolic pressure was in 180s at its peak. Baseline BP is 130s/80s. Pt first noticed his high BP last week at his PCPs office. Pt denies any symptoms and states he feels ok. Pt is on Metoprolol. Pt recently had a Watchmans procedure done and no longer on blood thinner. - History of Current Complaint Chief Complaint: EDHypertension Stated Complaint: HIGH BLOOD PRESSURE Time Seen by Provider: 05/26/17 13:55 Hx Obtained From: Patient, Family/Storyboard Artist - Onset/Duration: Started Weeks Ago, Still Present Timing: Intermittent Aggravating Factor(s): Nothing Alleviating Factor(s): Nothing Associated Signs & Symptoms: Negative - Allergies/Home Medications Allergies/Adverse Reactions: Allergies Allergy/AdvReac Type Severity Reaction Status Date / Time No Known Allergies Allergy Verified 03/06/17 11:22 PMH/Surg Hx/FS Hx/Imm Hx Endocrine/Hematology History: Denies: Hx Diabetes Cardiovascular History: Reports: Hx Atrial Fibrillation, Hx Congenital Heart Disease - murmur, Hx Congestive Heart Failure, Hx Coronary Artery Disease - Stent x2 2007, Hx Hypercholesterolemia, Hx Hypertension, Other Cardiovascular Problems/Disorders - cardiomyopathy Denies: Hx Angina - denies, Hx Myocardial Infarction, Hx Pacemaker/ICD, Hx Valvular Heart Disease Respiratory History: Reports: Hx Pulmonary Embolism - possible, Other Respiratory Problems/Disorders - SOB D/T WEAKNESS Denies: Hx Asthma, Hx Chronic Obstructive Pulmonary Disease (COPD), Hx Pneumonia GI History: Reports: Hx Hiatal Hernia, Other GI Disorders - abdominal hernia History: Reports: Hx Benign Prostatic Hyperplasia - maybe Denies: Hx Dialysis Musculoskeletal History: Reports: Hx Arthritis, Hx Back Problems, Other Musculoskeletal History - Marfan's Syndrome Sensory History: Reports: Hx Contacts or Glasses - reading, Hx Macular Degeneration - lense implants x2 Denies: Hx Hearing Aid Opthamlomology History: Reports: Hx Contacts or Glasses - reading, Hx Macular Degeneration - lense implants x2 Neurological History: Reports: Hx Headaches, Hx Nerve Disease, Other Neuro Impairments/Disorders - MARFAN'S SYNDROME Denies: Hx Dementia, Hx Seizures Psychiatric History: Reports: Hx Anxiety, Hx Attention Deficit Hyperactivity Disorder, Hx Depression, Hx Panic Disorder - agorophobia, Hx Inpatient Treatment , Hx Community Mental Health Tx, Hx Bipolar Disorder Denies: Hx Eating Disorder, Hx of Violent Episodes Against Others - Surgical History Surgery Procedure, Year, and Place: left knee surgery, left wrist, abdominal hernia x2, cardiac cath 2009ish. dates unknown. STENTS X2 2007 Hx Anesthesia Reactions: No Infectious Disease History: Yes Infectious Disease History: Reports: Hx Shingles Denies: Hx Clostridium Difficile, Hx Hepatitis, Hx Human Immunodeficiency Virus (HIV), Hx of Known/Suspected MRSA, Hx Tuberculosis, History Other Infectious Disease, Traveled Outside the [place] in Last 30 Days - Family History Known Family History: Positive: Cardiac Disease - Social History Lives: With Family Alcohol Use: Rare Alcohol Amount: 2 X YEAR Hx Substance Use: No Substance Use Type: Reports: Marijuana Hx Tobacco Use: Yes Smoking Status (MU): Former Smoker Type: Cigarettes Amount Used/How Often: 5-7/day Length of Time of Smoking/Using Tobacco: 16 years total Have You Smoked in the Last Year: No Review of Systems Constitutional: Negative Eyes: Negative ENT: Negative Positive: Other - high BP Respiratory: Negative Gastrointestinal: Negative Genitourinary: Negative Musculoskeletal: Negative Skin: Negative Neurological: Negative Psychological: Normal All Other Systems Reviewed And Are Negative: Yes Physical Exam - Summary Physical Exam Summary: General: well-appearing, no pain distress Skin: warm, color reflects adequate perfusion, dry Head: normal Eyes: EOMI, VENITA ENT: normal Neck: supple, nontender Respiratory: CTA, breath sounds present Cardiovascular: RRR Abdomen: soft, nontender Bowel: present Musculoskeletal: normal, strength/ROM intact Neurological: normal, sensory/motor intact, A&O x3 Psychological: affect/mood appropriate Triage Information Reviewed: Yes Vital Signs On Initial Exam: Initial Vitals Temp Pulse Resp BP Pulse Ox 98.3 F 70 16 185/104 94 05/26/17 13:00 05/26/17 13:00 05/26/17 13:00 05/26/17 13:00 05/26/17 13:00 Vital Signs Reviewed: Yes - [place] Coma Scale Coma Scale Total: 15 Diagnostics - Vital Signs Vital Signs Temp Pulse Resp BP Pulse Ox 05/26/17 13:36 66 19 142/87 92 05/26/17 13:30 67 21 142/85 93 05/26/17 13:23 67 92 05/26/17 13:22 145/93 05/26/17 13:00 98.3 F 70 16 185/104 94 - Laboratory Lab Statement: Any lab studies that have been ordered have been reviewed, and results considered in the medical decision making process. - Radiology CXR Xray Interpretation: Positive (See Comments) - IMPRESSION: HYPERINFLATION, CONSISTENT WITH COPD. NO ACTIVE CARDIOPULMONARY DISEASE. Radiology Interpretation Completed By: Radiologist - Dr. Mcadams has reviewed this radiology report and agrees. Hypertension Course/Dx - Course Course Of Treatment: BP noted and advised to follow up with PCP. Allergies noted. Medications reviewed. BP IMPROVED IN ED. F/U PMD. - Diagnoses Provider Diagnoses: Hypertension Discharge - Discharge Plan Condition: Stable Disposition: HOME Patient Education Materials: Hypertension (ED) Referrals: David Putnam MD [Primary Care Provider] - Additional Instructions: Please follow up with your primary care provider in 1-2 weeks. FOLLOW UP WITH YOUR DOCTOR. RETURN TO THE EMERGENCY DEPARTMENT FOR ANY WORSENING OF YOUR CONDITION OR QUESTIONS OR CONCERNS. The documentation as recorded by the Adelfo rosa Benjamin accurately reflects the service I personally performed and the decisions made by , Garrett Mcadams MD.
[2017-05-26 16:22] VITALS: BP 135/84
== END 2017-05-26 16:33 | disposition home or self-care (01) ==
LOC: ED 12:57
DX: I10 Essential (primary) hypertension (principal); Z87.891 Personal history of nicotine dependence
CPT/HCPCS: 71020; 99282

== ENCOUNTER 2017-10-23 10:55 | Emergency (ER) | payer MEDICARE, MEDICAID ==
[2017-10-23] MEDS ORDERED: Haloperidol TAB* 5 MG PO ONE (11:46)
[2017-10-23] MEDS ORDERED: diPHENhydraMINE PO* 50 MG PO ONE (11:46)
[2017-10-23] MEDS ORDERED: diPHENhydraMINE PO* 50 MG ONE (11:47)
[2017-10-23] MEDS ORDERED: LORazepam TAB(*) 1 MG PO ONE (11:47)
[2017-10-23] MEDS ORDERED: LORazepam TAB(*) 1 MG ONE (11:47)
[2017-10-23] MEDS ORDERED: Haloperidol TAB* 5 MG ONE (11:47)
[2017-10-23 12:00] LABS: ABS Basophils 0.1 10^3/ul (0-0.2); ABS Eosinophils 0.1 10^3/ul (0-0.6); ABS Lymphocytes 2.1 10^3/ul (1.0-4.8); ABS Monocytes 0.8 10^3/ul (0-0.8); ABS Neutrophils 4.5 10^3/ul (1.5-7.7); ABS Nucleated RBC 0 10^3/ul; Hematocrit 38 % (42-52); Hemoglobin 12.7 g/dl (14.0-18.0); Lymphocyte % 27.5 % (25-47); Mean Corpuscular HGB Conc 34 g/dl (31-36); Mean Corpuscular Hemoglobin 32 pg (27-31); Mean Corpuscular Volume 95 fL (80-94); Mean Platelet Volume 8.4 um3 (7.4-10.4); Nucleated Red Blood Cells % 0.1; Platelet Count 211 10^3/ul (150-450); Red Blood Count 4.01 10^6/ul (4.0-5.4); Red Cell Distribution Width 14 % (10.5-15); White Blood Count 7.6 10^3/ul (3.5-10.8)
[2017-10-23 12:01] LABS: EGFR Non-African American 42.5 (>60)
[2017-10-23] MEDS: NS 0.9% 1000 ML* 2,000 ML IV ONE (15:35)
--- NOTE | 2017-10-23 18:54 | ED ---
Luis العراقي Stephanie, scribed for Garrett Mcadams MD on 10/23/17 at 1155 . Psychiatric Complaint - HPI Summary HPI Summary: The pt is a 67 y/o M presenting to the ED with c/o bari that began earlier today. 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 The pt states he is just being himself. - History Of Current Complaint Chief Complaint: EDMentalHealth Time Seen by Provider: 10/23/17 11:11 Hx Obtained From: Patient Onset/Duration: Sudden Onset, Still Present Timing: Constant Severity Currently: Severe Character: Manic Aggravating Factor(s): Nothing Alleviating Factor(s): Nothing Related History: Positive For: Prior Psychiatric Issues - Allergies/Home Medications Allergies/Adverse Reactions: Allergies Allergy/AdvReac Type Severity Reaction Status Date / Time No Known Allergies Allergy Verified 03/06/17 11:22 PMH/Surg Hx/FS Hx/Imm Hx Endocrine/Hematology History: Denies: Hx Diabetes Cardiovascular History: Reports: Hx Atrial Fibrillation, Hx Congenital Heart Disease - murmur, Hx Congestive Heart Failure, Hx Coronary Artery Disease - Stent x2 2007, Hx Hypercholesterolemia, Hx Hypertension, Other Cardiovascular Problems/Disorders - cardiomyopathy Denies: Hx Angina - denies, Hx Myocardial Infarction, Hx Pacemaker/ICD, Hx Valvular Heart Disease Respiratory History: Reports: Hx Pulmonary Embolism - possible, Other Respiratory Problems/Disorders - SOB D/T WEAKNESS Denies: Hx Asthma, Hx Chronic Obstructive Pulmonary Disease (COPD), Hx Pneumonia GI History: Reports: Hx Hiatal Hernia, Other GI Disorders - abdominal hernia History: Reports: Hx Benign Prostatic Hyperplasia - maybe Denies: Hx Dialysis Musculoskeletal History: Reports: Hx Arthritis, Hx Back Problems, Other Musculoskeletal History - Marfan's Syndrome Sensory History: Reports: Hx Contacts or Glasses - reading, Hx Macular Degeneration - lense implants x2 Denies: Hx Hearing Aid Opthamlomology History: Reports: Hx Contacts or Glasses - reading, Hx Macular Degeneration - lense implants x2 Neurological History: Reports: Hx Headaches, Hx Nerve Disease, Other Neuro Impairments/Disorders - MARFAN'S SYNDROME Denies: Hx Dementia, Hx Seizures Psychiatric History: Reports: Hx Anxiety, Hx Attention Deficit Hyperactivity Disorder, Hx Depression, Hx Panic Disorder - agorophobia, Hx Inpatient Treatment , Hx Community Mental Health Tx, Hx Bipolar Disorder Denies: Hx Eating Disorder, Hx of Violent Episodes Against Others - Surgical History Surgery Procedure, Year, and Place: left knee surgery, left wrist, abdominal hernia x2, cardiac cath 2009ish. dates unknown. STENTS X2 2008 Hx Anesthesia Reactions: No Infectious Disease History: No Infectious Disease History: Reports: Hx Shingles Denies: Hx Clostridium Difficile, Hx Hepatitis, Hx Human Immunodeficiency Virus (HIV), Hx of Known/Suspected MRSA, Hx Tuberculosis, History Other Infectious Disease, Traveled Outside the [place] in Last 30 Days - Family History Known Family History: Positive: Cardiac Disease - Social History Occupation: Disabled Lives: With Family Alcohol Use: Rare Alcohol Amount: 2 X YEAR Hx Substance Use: No Substance Use Type: Reports: Marijuana Hx Tobacco Use: Yes Smoking Status (MU): Former Smoker Type: Cigarettes Amount Used/How Often: 5-7/day Length of Time of Smoking/Using Tobacco: 16 years total Have You Smoked in the Last Year: No Review of Systems Negative: Fever Negative: Slurred Speech Positive: Other - manic All Other Systems Reviewed And Are Negative: Yes Physical Exam - Summary Physical Exam Summary: General: well-appearing, no pain distress Skin: warm, color reflects adequate perfusion, dry Head: normal Eyes: EOMI, VENITA ENT: normal Neck: supple, nontender Respiratory: CTA, breath sounds present Cardiovascular: RRR Abdomen: soft, nontender Bowel: present Musculoskeletal: normal, strength/ROM intact Neurological: sensory/motor intact, A&O x3 Psychological: manic Triage Information Reviewed: Yes Vital Signs On Initial Exam: Initial Vitals Temp Pulse Resp BP Pulse Ox 98.2 F 88 24 205/110 98 10/23/17 11:03 10/23/17 11:03 10/23/17 11:03 10/23/17 11:03 10/23/17 11:03 Vital Signs Reviewed: Yes Diagnostics - Vital Signs Vital Signs Temp Pulse Resp BP Pulse Ox 10/23/17 11:03 98.2 F 88 24 205/110 98 - Laboratory Lab Results: Lab Results 10/23/17 10/23/17 Range/Units 11:35 11:35 WBC 7.6 (3.5-10.8) 10^3/ul RBC 4.01 (4.0-5.4) 10^6/ul Hgb 12.7 L (14.0-18.0) g/dl Hct 38 L (42-52) % MCV 95 H (80-94) fL MCH 32 H (27-31) pg MCHC 34 (31-36) g/dl RDW 14 (10.5-15) % Plt Count 211 (150-450) 10^3/ul MPV 8.4 (7.4-10.4) um3 Neut % (Auto) 60.2 (38-83) % Lymph % (Auto) 27.5 (25-47) % [place]upe % (Auto) 10.2 H (0-7) % Eos % (Auto) 1.0 (0-6) % Baso % (Auto) 1.1 (0-2) % Absolute Neuts (auto) 4.5 (1.5-7.7) 10^3/ul Absolute Lymphs (auto) 2.1 (1.0-4.8) 10^3/ul Absolute Monos (auto) 0.8 (0-0.8) 10^3/ul Absolute Eos (auto) 0.1 (0-0.6) 10^3/ul Absolute Basos (auto) 0.1 (0-0.2) 10^3/ul Absolute Nucleated RBC 0 10^3/ul Nucleated RBC % 0.1 Sodium 135 L (139-145) mmol/L Potassium 3.9 (3.5-5.0) mmol/L Chloride 102 (101-111) mmol/L Carbon Dioxide 26 (22-32) mmol/L Anion Gap 7 (2-11) mmol/L BUN 44 H (6-24) mg/dL Creatinine 1.63 H (0.67-1.17) mg/dL Est GFR ( Amer) 54.7 (>60) Est GFR (Non-Af Amer) 42.5 (>60) BUN/Creatinine Ratio 27.0 H (8-20) Glucose 86 (70-100) mg/dL Calcium 9.8 (8.6-10.3) mg/dL Total Bilirubin 1.20 H (0.2-1.0) mg/dL AST 114 H (13-39) U/L ALT 35 (7-52) U/L Alkaline Phosphatase 106 H (34-104) U/L Total Protein 8.0 (6.4-8.9) g/dL Albumin 4.6 (3.2-5.2) g/dL Globulin 3.4 (2-4) g/dL Albumin/Globulin Ratio 1.4 (1-3) TSH 0.81 (0.34-5.60) mcIU/mL Salicylates < 2.50 (<30) mg/dL Acetaminophen < 15 mcg/mL Valproic Acid 13.0 L (50-100) mcg/mL Serum Alcohol < 10 (<10) mg/dL Result Diagrams: 10/23/17 11:35 10/23/17 11:35 Lab Statement: Any lab studies that have been ordered have been reviewed, and results considered in the medical decision making process. Course/Dx - Course Course Of Treatment: ED physician medically cleared the pt at 13:10. This pt is a sign out to Dr. Peña at shift change pending transfer. NS 2 LITERS GIVEN IN ED. CREATININE RECHECK PENDING AT SHIFT CHANGE. - Differential Dx/Clinical Impression Provider Diagnosis: Mental health problem, Acute renal insufficiency Discharge - Sign-Out/Discharge Documenting (check all that apply): Sign-Out Patient Signing out patient TO: Yon Peña - Pending transfer. - Discharge Plan Referrals: David Putnam MD [Primary Care Provider] - The documentation as recorded by the Luis rosa Stephanie accurately reflects the service I personally performed and the decisions made by me, Garrett Mcadams MD.
[2017-10-23 19:19] LABS: EGFR Non-African American 47.2 (>60)
[2017-10-24] MEDS ORDERED: Haloperidol TAB* 5 MG PO ONE (01:04)
[2017-10-24] MEDS ORDERED: diPHENhydraMINE PO* 50 MG PO ONE (01:04)
[2017-10-24] MEDS ORDERED: LORazepam TAB(*) 1 MG PO ONE (01:06)
[2017-10-24 01:31] LABS: Urine Appearance Clear; Urine Blood Negative (Negative); Urine Color Yellow; Urine Ketones Trace (Negative); Urine Protein Negative (Negative); Urine Specific Gravity 1.018 (1.010-1.030); Urine Urobilinogen Positive (Negative)
--- NOTE | 2017-10-24 06:34 | ED ---
Malcom, Karolina Wood, scribed for Yon Peña MD on 10/23/17 at 2126 . Progress - Progress Note Progress Note: The patient is a sign out from Dr. Mcadams pending transfer-disposition. BNP reviewed and it shows improved, creatinine of 1.49 and ratio of 24, which is improved to previous after IV fluids. The patient is diagnosed with bari. The patient will be signed out to Dr. Mcadams pending transfer disposition. - Results/Orders Results/Orders: EKG at 2116. Sinus bradycardia at 50 BPM. Left anterior fascicular block. Nonspecific T wave changes. Similar to prior EKG on 03/06/2017. - Consult/PCP Time Called: 12:45 Course/Dx - Course Course Of Treatment: The patient is a sign out from Dr. Mcadams pending transfer-disposition. BNP reviewed and it shows improved, creatinine of 1.49 and ratio of 24, which is improved to previous after IV fluids. The patient is diagnosed with bari. The patient will be signed out to Dr. Mcadams pending transfer disposition. - Diagnoses Provider Diagnoses: Bari Discharge - Sign-Out/Discharge Documenting (check all that apply): Sign-Out Patient Signing out patient TO: Garrett Mcadams - pending transfer dispo - Discharge Plan Referrals: David Putnam MD [Primary Care Provider] - The documentation as recorded by the Israel rosa Jennifer accurately reflects the service I personally performed and the decisions made by , Yon Peña MD.
[2017-10-24] MEDS ORDERED: Divalproex DR TAB(*) 500 MG PO SCH (10:00)
--- NOTE | 2017-10-24 10:12 | PN ---
Progress Note - Progress Note Date of Service: 10/24/17 Note: S: ED day #1 for this 67 y.o. male with bipolar disorder who presents, brought in by , with evidence of bari. Juan received prn doses of chlorpromazine, lorazepam and Benadryl and slept well last night. He is clearly doing better and his is coming in to see if he's back to baseline. We have resumed Depakote therapy. O: aging white male; euthymic, calm; denies SI/HI A/P: Bipolar: resumed Depakote therapy. Will refer to outpatient f/u in the community if agrees he is back to baseline. If not, consider admission to outside facility as adult [facility] has no open beds.
[2017-10-24 13:02] VITALS: BP 116/61
== END 2017-10-24 13:01 | disposition home or self-care (01) ==
LOC: ED 10:55
DX: F31.9 Bipolar disorder, unspecified (principal); N28.9 Disorder of kidney and ureter, unspecified; Z87.891 Personal history of nicotine dependence
CPT/HCPCS: 36415; 80048; 80053; 80164; 80307; 80320; 80329; 81003; 84443; 85025; 93005; 96360; 99285; A9270-GY; G0480

== ENCOUNTER 2017-11-23 10:56 | Inpatient (IN) | payer MEDICAID, MEDICARE, OTHER ==
[2017-11-23] MEDS ORDERED: LORazepam TAB(*) 1 MG PO ONE (11:34)
[2017-11-23] MEDS ORDERED: Haloperidol TAB* 5 MG PO ONE (11:34)
[2017-11-23] MEDS ORDERED: Haloperidol TAB* 5 MG ONE (11:37)
[2017-11-23] MEDS ORDERED: LORazepam TAB(*) 1 MG ONE (11:37)
[2017-11-23 11:40] LABS: ABS Basophils 0.1 10^3/ul (0-0.2); ABS Eosinophils 0.1 10^3/ul (0-0.6); ABS Lymphocytes 2.1 10^3/ul (1.0-4.8); ABS Monocytes 0.6 10^3/ul (0-0.8); ABS Neutrophils 5.8 10^3/ul (1.5-7.7); ABS Nucleated RBC 0 10^3/ul; Hematocrit 38 % (42-52); Hemoglobin 12.5 g/dl (14.0-18.0); Lymphocyte % 24.5 % (25-47); Mean Corpuscular HGB Conc 33 g/dl (31-36); Mean Corpuscular Hemoglobin 32 pg (27-31); Mean Corpuscular Volume 97 fL (80-94); Mean Platelet Volume 8.3 um3 (7.4-10.4); Nucleated Red Blood Cells % 0; Platelet Count 204 10^3/ul (150-450); Red Blood Count 3.86 10^6/ul (4.00-5.40); Red Cell Distribution Width 14 % (10.5-15); White Blood Count 8.7 10^3/ul (3.5-10.8)
[2017-11-23] MEDS ORDERED: diPHENhydraMINE IV* 50 MG/ML 1 ml VIAL (BENADRYL) ONE (11:52)
[2017-11-23] MEDS ORDERED: Haloperidol INJ IV/IM* 5 MG/ML AMP ONE (11:52)
[2017-11-23 12:02] LABS: EGFR Non-African American 59.4 (>60)
[2017-11-23] MEDS ORDERED: diPHENhydraMINE IV* 50 MG/ML 1 ml VIAL (BENADRYL) IM ONE (13:05)
[2017-11-23] MEDS ORDERED: Haloperidol INJ IV/IM* 5 MG/ML AMP IM ONE (13:06)
--- NOTE | 2017-11-24 06:44 | ED ---
Estefani العراقي Gabriel, scribed for Yonatan Knox MD on 11/24/17 at 0635 . Progress - Progress Note Progress Note: This patient was signed out from Dr. Spivey awaiting E. The patient will be signed out to Dr. Mcadams at shift change awaiting MHE. Course/Dx - Diagnoses Provider Diagnoses: Senia Discharge - Sign-Out/Discharge Documenting (check all that apply): Sign-Out Patient, Receiving Sign-Out Signing out patient TO: Garrett Mcadams Receiving patient FROM: Raymond Spivey - Discharge Plan Referrals: David Putnam MD [Primary Care Provider] - The documentation as recorded by the Estefani rosa Gabriel accurately reflects the service I personally performed and the decisions made by , Yonatan Knox MD.
--- NOTE | 2017-11-24 07:11 | PN ---
ED Flex Patient Progress Note Date of Service: 11/23/17 Subjective: This is a 67 year-old M who is pending admission to [facility] / transfer to another psychiatric facility / discharge to home / or being observed secondary to anxiety. Pt. examined around 0655 in the flex unit. He is sleeping comfortably. Objective: Vitals: Most recent vital signs documented below. General NAD, Alert and oriented x3. Laboratory: Current laboratory results documented below. Assessment: Pending MHE and final disposition. Plan: Pending psychiatric or medical consultation to observe / transfer / admit / discharge will follow up daily . Vital Signs Temp Pulse Resp BP Pulse Ox 98.6 F 41 19 118/72 96 11/23/17 10:58 11/23/17 18:13 11/23/17 18:13 11/23/17 18:13 11/23/17 18:13 Lab Results - Entire Visit 11/23/17 11/23/17 11:29 11:29 WBC 8.7 RBC 3.86 L Hgb 12.5 L Hct 38 L MCV 97 H MCH 32 H MCHC 33 RDW 14 Plt Count 204 MPV 8.3 Neut % (Auto) 66.7 Lymph % (Auto) 24.5 L Willacy % (Auto) 6.9 Eos % (Auto) 1.0 Baso % (Auto) 0.9 Absolute Neuts (auto) 5.8 Absolute Lymphs (auto) 2.1 Absolute Monos (auto) 0.6 Absolute Eos (auto) 0.1 Absolute Basos (auto) 0.1 Absolute Nucleated RBC 0 Nucleated RBC % 0 Sodium 140 Potassium 4.1 Chloride 104 Carbon Dioxide 29 Anion Gap 7 BUN 26 H Creatinine 1.22 H Est GFR ( Amer) 76.4 Est GFR (Non-Af Amer) 59.4 BUN/Creatinine Ratio 21.3 H Glucose 123 H Calcium 9.9 Total Bilirubin 0.50 AST 32 ALT 22 Alkaline Phosphatase 93 Total Protein 7.7 Albumin 4.4 Globulin 3.3 Albumin/Globulin Ratio 1.3 TSH 0.88 Salicylates < 2.50 Acetaminophen < 15 Valproic Acid 90.0 Serum Alcohol < 10
[2017-11-24] MEDS ORDERED: Metoprolol Succinate XL TAB* 50 MG PO ONE (08:15)
[2017-11-24] MEDS ORDERED: Amiodarone TAB* 200 MG PO ONE (08:15)
[2017-11-24] MEDS ORDERED: Spironolactone TAB* 25 MG PO ONE (08:15)
[2017-11-24] MEDS ORDERED: Aspirin TAB* 325 MG PO ONE (08:15)
[2017-11-24] MEDS ORDERED: Ramipril CAP* 5 MG PO ONE (08:15)
[2017-11-24] MEDS ORDERED: Aspirin EC TAB* 81 MG TAB.EC PO ONE (10:00)
[2017-11-24] MEDS ORDERED: Al Hydrox/Mg Hydrox/Simet LIQ* 30 ML UDC PO PRN (13:22)
[2017-11-24] MEDS ORDERED: Ibuprofen TAB* 600 MG PO PRN (13:24)
[2017-11-24] MEDS ORDERED: Haloperidol TAB* 5 MG PO PRN (13:25)
[2017-11-24] MEDS: Divalproex ER TAB(*) 500 MG PO SCH (22:04)
[2017-11-25] MEDS: Ibuprofen TAB* 800 MG PO PRN ×2 (13:06→21:33)
[2017-11-25] MEDS: Metoprolol Succinate XL TAB* 50 MG PO SCH (15:00)
[2017-11-25] MEDS: Ramipril CAP* 5 MG PO SCH (15:00)
[2017-11-25] MEDS: Spironolactone TAB* 25 MG PO SCH (15:00)
[2017-11-25] MEDS: Aspirin 81 mg CHEW TAB* 81 MG TAB.CHEW PO SCH (15:00)
[2017-11-25] MEDS: FERROUS SULFATE PO SCH (15:00)
[2017-11-25] MEDS: Amiodarone TAB* 200 MG PO SCH (15:00)
--- NOTE | 2017-11-25 15:02 | HP ---
HISTORY AND PHYSICAL: DATE OF ADMISSION: 11/24/17 PROVIDER: Shira Paz NP, in Psychiatry. SUPERVISING PHYSICIAN: Walter Batista MD * (DICTATED BY SHIRA PAZ NP ) JUSTIFICATION FOR ADMISSION: The patient is in need of 24-hour supervision and care secondary to disorganization and inability to adequately care for himself. CHIEF COMPLAINT: "I'm always elevated and this is normal for me." HISTORY OF PRESENT ILLNESS: The patient is a 67-year-old man who is . He has a history of bipolar 1 disorder. He arrives brought in by his and is on a 9.39 status after being found to have run across the street to [employer] in order get votes for his new campaign and a variety of other activities that would decrease his safety in the community. Juan has a long history of bipolar disorder, specifically bari. He has grandiose ideas. The current one is to run for [employer]'s senate seat on the [employer]. He says this is based on Ms. 's advice to him when he was in high school. He states "I'm a very very brilliant person, I've always been number 1." He does not remember the Acronis's incident at all. He says that he went to get ice and he did not cross the road and he did not go to the drive-in window. He says that would be crazy. He says that people notice when he has not had a lot of sleep and he has not had much sleep lately. He has reduced his Depakote from 1000 mg to 500 mg at bedtime and his physical symptoms, things like arthritis and Marfan's syndrome are problematic for him and causing him pain. He, in fact, becomes tearful discussing this stating that he has carpal tunnel syndrome. He has an ankle problem which he has seen doctors for and he has a brace and a crutch for, which he does not want here because he says that everything is getting better and he has arthritis in his hands pretty clearly and he grieves that he cannot do small tasks as he could. He says "I've a technology to deal with this and that is to work, that is why I work harder than anyone I know." He is extremely distractible. He is grandiose. He has some circumstantial speech. He read to me from a document that he carries in his pocket that he wrote 10 years ago. He is a bit fidgety. There is a sleep deficit and he is quite chatty. PAST PSYCHIATRIC HISTORY: Previous admissions: He has not been admitted to the hospital since 2014, but has had a series of hospitalizations that he is not particularly willing to discuss at this time. He was also psychiatrically hospitalized twice in 1999 here at [facility]. His outpatient providers at this point appear to be [facility]. He also appears to be doing a lot of his own medication titrations. He is not endorsing suicide or homicidal ideation at this time. He does not have access to weapons. He does not state that he has had significant trauma nor that he has a TBI. Previous psychiatric meds included Depakote, Zyprexa, Lamictal which "almost killed me" and he never tried lithium or tried it for such a short time that he found it to be unhelpful because he slept so much he quickly becomes toxic. PAST MEDICAL HISTORY: He does have Marfan's syndrome. He has osteoarthritis. He has ankle swelling, which according to old notes is tissue swelling and not a bone problem. ALLERGIES: He is not discussing allergies at this point, he does not say that he has any. FAMILY HISTORY: Juan denies any psychiatric history in his family. SUBSTANCE ABUSE HISTORY: He denies using drugs or alcohol. He denies being in treatment at . SOCIAL HISTORY: He has 2 sisters. He is . He got just a few years ago to a woman named Catherine, who is the one who brought him to the hospital. He has had many jobs. He is not working right now. To my knowledge , one of his most recent jobs was working at the [employer] where he could not maintain that employment. He has not been in the . He has no legal problems at this point. REVIEW OF SYSTEMS: The patient reports feeling fatigued and depressed. He denies shortness of breath, heat or cold intolerance, chest pain or abdominal pain. He denies neurological symptoms. He denies fevers or changes of weight. He is concerned about his cardiac health and I have received information from Dr. Bagley in [facility] and I will address those issues by following those instructions. PHYSICAL EXAMINATION VITAL SIGNS: Temperature 98.3, pulse 52, respiration rate 17, O2 sat is 97%, blood pressure on 11/25/17 is 157/93. For further exam data, please see emergency department records. It should be noted that on one hand you can see that his middle finger is deviated from normal probably due to arthritis and his right ankle appears to be somewhat swollen and he seems to be walking on the swelling. I will pursue what he wants to do about that if he wants to do anything about that in the hospital. LABORATORY DATA: There are several unusual results. Red blood cells and hemoglobin and hematocrit are all low. MCV, MCH are high. Lymph percentage is low. BUN and creatinine are both high. The BUN/creatinine ratio is high. Glucose is 123. It is not clear to me whether this was a fasting lab or not. Valproic acid level is low at 17. TSH is 0.88. MENTAL STATUS EXAMINATION: This is a tall, slim aging man who appears older than his stated age, who has rodriguez hair and a notably swollen ankle. He is slightly hyperkinetic. He is calm and cooperative, although very sprightly in speech. Speech is normal rate, tone, and volume. He appears to be euthymic. He becomes slightly tearful. He is labile. His thought processes appear to be normal, although they are circumstantial. Thought content is clear, although he is focusing on the past quite a lot. He is not homicidal or suicidal. He does not have any hallucinations that he is reporting. His insight is poor. He does not believe he has a mental illness that needs to be treated. His judgment is poor. He is not interested in treating it. He is alert and oriented x3. He is of above average intelligence given his conversation topics. DIAGNOSES: xis I: Bipolar 1 disorder. [place] II: Cluster B traits. IMPRESSION: This is a 67-year-old man who is with a history of bipolar disorder, who comes to the hospital after determining that he is going to run for [employer] office with no people behind him and no financial backing. PLAN: The patient is admitted to the adult behavioral health unit and placed on q.15-minute checks for his own safety. He is encouraged to participate in supportive milieu, individual and group therapy. Estimated length of stay is 5 to 7 days. We will titrate medications, specifically Depakote to efficacy and monitor for mood and thought content. Discharge planning will include family involvement and outpatient providers. SHIRA PAZ, MARTHA [id number]/[facility] #: [id number] JANEY
[2017-11-25] MEDS: Acetaminophen TAB* 325 MG PO PRN (17:47)
[2017-11-25] MEDS: Divalproex ER TAB(*) 500 MG PO SCH (21:33)
[2017-11-25] MEDS: LORazepam TAB(*) 1 MG PO PRN (23:36)
[2017-11-26] MEDS: Aspirin 81 mg CHEW TAB* 81 MG TAB.CHEW PO SCH (09:29)
[2017-11-26] MEDS: Amiodarone TAB* 200 MG PO SCH (09:29)
[2017-11-26] MEDS: FERROUS SULFATE PO SCH (09:29)
[2017-11-26] MEDS: amLODIPine TAB* 5 MG PO SCH (09:29)
[2017-11-26] MEDS: Metoprolol Succinate XL TAB* 50 MG PO SCH (09:30)
[2017-11-26] MEDS: Spironolactone TAB* 25 MG PO SCH (09:30)
[2017-11-26] MEDS: Ramipril CAP* 5 MG PO SCH (09:30)
[2017-11-26] MEDS: OLANzapine TAB* 5 MG PO SCH ×2 (11:17→20:06)
[2017-11-26] MEDS: Ibuprofen TAB* 800 MG PO PRN (20:03)
[2017-11-26] MEDS: Acetaminophen TAB* 325 MG PO PRN (20:03)
[2017-11-26] MEDS: Divalproex ER TAB(*) 500 MG PO SCH (20:04)
--- NOTE | 2017-11-26 21:17 | PN ---
Subjective - Subjective Date of Service: 11/26/17 Service Type: 53904 Hosp care 15 min low complexity Subjective: Juan has an elevated mood and is disagreeable with the decisions I've made with his care. He would very much like to have Provigil, which he takes outpatient to keep him awake. As his emotional state at this time is elevated, disagreeable , frustrated. He continues to want to run for office based on the advice of his 12th gradepaper tube grader and references her far-reaching influence as convincing him to not become a donovan in trade for the realization of this dream. When it was attempted to point out the dream's illogic, Juan became quite agitated, standing closer to me and becoming louder. When interrupted to inform him he would not be receiving Provigil and that I would be prescribing Zyprexa, he became more agitated, walking away incredulously and shouting epithets. Objective - Appearance Appearance: Well Developed/Nourished Dysmorphic Features: No Hygiene: Normal Grooming: Disheveled - Behavior Psychomotor Activities: Normal Exhibits Abnormal Movement: No - Attitude and Relatedness Attitude and Relatedness: Hostile Eye Contact: Good - Speech Quality: Pressured Latencies: Normal Quantity: Copious - Mood Patient's Decription of Mood: "Upset" - Affect Observed Affect: Tense Affect Consistent with: Dysphoria - Thought Process Patient's Thought Process: Goal Directed, Loose Associations, Tangential Thought Content: No Passive Wish, No Suicidal Planning, No Homicidal Ideation, No Paranoid Ideation - Sensorium Experiencing Hallucinations: No, Sensorium is Clear Type of Hallucinations: Visual: No, Auditory: No, Command: No - Level of Consciousness Level of Consciousness: Agitated Orientation: Yes Intact, Yes Orientated to Time, Yes Orientated to Place, Yes Orientated to Person - Impulse Control Impulse Control: Tenuous - Insight and Judgement Insight and Judgement: Impaired - Group Participation Particating in Group Activities: Yes - Medication Management Medication Management Adherence: Partial - Additional Observations Comments: Juan is dressed properly and is generally in control of himself. When challenged or when told something he doesn't like, he becomes agitated. Assessment - Assessment Merits Inpatient Hospitalization: For Immediate Safety Inpatient DSM-V Dx: F31.81 Clinical Impression: Juan is demonstrating typical symptoms of a person with bipolar disorder I bari. He is pleasant at times and at other times takes extreme umbrage with information that is presented to him. Plan - Plan Treatment Plan: Name: JUAN GARCIA Birthdate: 1950 [id number] Juan is presented with the option of taking Zyprexa in addition to the Depakote he has been willing to take. Juan is being encouraged to sleep more and to hear the feedback that his elevated mood is unacceptably elevated. Medications: Current Medications Acetaminophen (Tylenol Tab*) 650 mg PO Q4H PRN PRN Reason: PAIN Last Admin: 11/26/17 20:03 Dose: 650 mg Al Hydrox/Mg Hydrox/Simethicone (Maalox Plus*) 30 ml PO Q4H PRN PRN Reason: INDIGESTION Amiodarone HCl (Cordarone Tab*) 200 mg PO DAILY [facility] Last Admin: 11/26/17 09:29 Dose: 200 mg Amlodipine Besylate (Norvasc Tab*) 5 mg PO DAILY [facility] Last Admin: 11/26/17 09:29 Dose: 5 mg Aspirin (Aspirin 81 Mg Chew Tab*) 81 mg PO DAILY CHRIS Last Admin: 11/26/17 09:29 Dose: 81 mg Divalproex Sodium (Depakote Er Tab(*)) 500 mg PO BEDTIME [facility] Last Admin: 11/26/17 20:04 Dose: 500 mg Haloperidol (Haldol Tab*) 5 mg PO Q6H PRN PRN Reason: AGITATION Ibuprofen (Motrin Tab*) 800 mg PO Q8H PRN PRN Reason: PAIN Last Admin: 11/26/17 20:03 Dose: 800 mg Lorazepam (Ativan Tab(*)) 1 mg PO Q6H PRN PRN Reason: AGITATION Last Admin: 11/25/17 23:36 Dose: 1 mg Metoprolol Succinate (Toprol Xl Tab*) 50 mg PO DAILY [facility] Last Admin: 11/26/17 09:30 Dose: 50 mg Non-Formulary Medication (Ferrous Sulfate [Slow Release Iron]) 143 mg PO DAILY [facility] Last Admin: 11/26/17 09:29 Dose: Not Given Olanzapine (Zyprexa Tab*) 5 mg PO BID [facility] Last Admin: 11/26/17 20:06 Dose: Not Given Ramipril (Altace Cap*) 5 mg PO DAILY [facility] Last Admin: 11/26/17 09:30 Dose: 5 mg Spironolactone (Aldactone Tab*) 25 mg PO DAILY [facility] Last Admin: 11/26/17 09:30 Dose: 25 mg - Discharge Plan Discharge Plan: Outpatient Follow Up
[2017-11-26] MEDS: LORazepam TAB(*) 1 MG PO PRN (21:40)
[2017-11-27] MEDS: Amiodarone TAB* 200 MG PO SCH (10:21)
[2017-11-27] MEDS: Spironolactone TAB* 25 MG PO SCH (10:21)
[2017-11-27] MEDS: Aspirin 81 mg CHEW TAB* 81 MG TAB.CHEW PO SCH (10:21)
[2017-11-27] MEDS: Metoprolol Succinate XL TAB* 50 MG PO SCH (10:21)
[2017-11-27] MEDS: Ramipril CAP* 5 MG PO SCH (10:21)
[2017-11-27] MEDS: amLODIPine TAB* 5 MG PO SCH (10:21)
[2017-11-27] MEDS: OLANzapine TAB* 5 MG PO SCH ×2 (11:09→20:47)
[2017-11-27] MEDS: FERROUS SULFATE PO SCH ×2 (11:09→11:20)
[2017-11-27] MEDS: Acetaminophen TAB* 325 MG PO PRN (11:23)
[2017-11-27] MEDS: Ibuprofen TAB* 800 MG PO PRN (11:24)
[2017-11-27] MEDS: Divalproex ER TAB(*) 500 MG PO SCH (20:43)
[2017-11-27] MEDS: LORazepam TAB(*) 1 MG PO PRN (21:17)
--- NOTE | 2017-11-27 21:45 | PN ---
Subjective - Subjective Date of Service: 11/27/17 Service Type: 83303 Hosp care 15 min low complexity Subjective: Reports of feeling tired from Zyprexa but still wants to continue. Read a long statement from a note he wrote years ago about his mental illness. Denies any other problems. Says he stays in bed more than 18 hours as there is nothing for him to do around. Objective - Appearance Appearance: Healthy Appearing Dysmorphic Features: No Hygiene: Normal Grooming: Fairly Well Kept - Behavior Psychomotor Activities: Normal Exhibits Abnormal Movement: No - Attitude and Relatedness Attitude and Relatedness: Appropriate Eye Contact: Good - Speech Quality: Unpressured Latencies: Normal Quantity: Appropriate - Mood Patient's Decription of Mood: "Great" - Affect Observed Affect: Non-labile - Thought Process Patient's Thought Process: Coherent, Goal Directed Thought Content: No Passive Wish, No Suicidal Planning, No Homicidal Ideation, No Paranoid Ideation - Sensorium Experiencing Hallucinations: No, Sensorium is Clear Type of Hallucinations: Visual: No, Auditory: No, Command: No - Level of Consciousness Level of Consciousness: Alert Orientation: Yes Intact, Yes Orientated to Time, Yes Orientated to Place, Yes Orientated to Person - Impulse Control Impulse Control: Intact - Insight and Judgement Insight and Judgement: Fair - Group Participation Particating in Group Activities: No - Medication Management Medication Management Adherence: Yes Assessment - Assessment Merits Inpatient Hospitalization: For Stabilization, Pending Safe DC Plan Inpatient DSM-V Dx: F31.81 Plan - Plan Treatment Plan: Name: MO GARCIA Birthdate: 1950 [id number] Continued Medication Management: Continue Outpt Medication Medications: Current Medications Acetaminophen (Tylenol Tab*) 650 mg PO Q4H PRN PRN Reason: PAIN Last Admin: 11/27/17 11:23 Dose: 650 mg Al Hydrox/Mg Hydrox/Simethicone (Maalox Plus*) 30 ml PO Q4H PRN PRN Reason: INDIGESTION Amiodarone HCl (Cordarone Tab*) 200 mg PO DAILY [facility] Last Admin: 11/27/17 10:21 Dose: 200 mg Amlodipine Besylate (Norvasc Tab*) 5 mg PO DAILY [facility] Last Admin: 11/27/17 10:21 Dose: 5 mg Aspirin (Aspirin 81 Mg Chew Tab*) 81 mg PO DAILY [facility] Last Admin: 11/27/17 10:21 Dose: 81 mg Divalproex Sodium (Depakote Er Tab(*)) 500 mg PO BEDTIME [facility] Last Admin: 11/27/17 20:43 Dose: 500 mg Haloperidol (Haldol Tab*) 5 mg PO Q6H PRN PRN Reason: AGITATION Ibuprofen (Motrin Tab*) 800 mg PO Q8H PRN PRN Reason: PAIN Last Admin: 11/27/17 11:24 Dose: 800 mg Lorazepam (Ativan Tab(*)) 1 mg PO Q6H PRN PRN Reason: AGITATION Last Admin: 11/27/17 21:17 Dose: 1 mg Metoprolol Succinate (Toprol Xl Tab*) 50 mg PO DAILY [facility] Last Admin: 11/27/17 10:21 Dose: 50 mg Non-Formulary Medication (Ferrous Sulfate [Slow Release Iron]) 143 mg PO DAILY [facility] Last Admin: 11/27/17 11:09 Dose: 143 mg Olanzapine (Zyprexa Tab*) 5 mg PO BID [facility] Last Admin: 11/27/17 20:47 Dose: Not Given Ramipril (Altace Cap*) 5 mg PO DAILY [facility] Last Admin: 11/27/17 10:21 Dose: 5 mg Spironolactone (Aldactone Tab*) 25 mg PO DAILY [facility] Last Admin: 11/27/17 10:21 Dose: 25 mg - Discharge Plan Discharge Plan: Outpatient Follow Up Outpatient Program: [facility]
[2017-11-28] MEDS: Spironolactone TAB* 25 MG PO SCH (09:57)
[2017-11-28] MEDS: Amiodarone TAB* 200 MG PO SCH (09:57)
[2017-11-28] MEDS: amLODIPine TAB* 5 MG PO SCH (09:57)
[2017-11-28] MEDS: Ramipril CAP* 5 MG PO SCH (09:57)
[2017-11-28] MEDS: Aspirin 81 mg CHEW TAB* 81 MG TAB.CHEW PO SCH (09:57)
[2017-11-28] MEDS: Metoprolol Succinate XL TAB* 50 MG PO SCH (09:57)
[2017-11-28] MEDS: Ibuprofen TAB* 800 MG PO PRN (10:00)
[2017-11-28] MEDS: Acetaminophen TAB* 325 MG PO PRN (10:00)
[2017-11-28] MEDS: OLANzapine TAB* 5 MG PO SCH ×2 (10:18→20:44)
[2017-11-28] MEDS: FERROUS SULFATE PO SCH (10:53)
[2017-11-28] MEDS: LORazepam TAB(*) 1 MG PO PRN (19:34)
[2017-11-28] MEDS: Divalproex ER TAB(*) 500 MG PO SCH (20:44)
[2017-11-29] MEDS: OLANzapine TAB* 5 MG PO SCH (09:24)
[2017-11-29] MEDS: amLODIPine TAB* 5 MG PO SCH (09:24)
[2017-11-29] MEDS: Amiodarone TAB* 200 MG PO SCH (09:24)
[2017-11-29] MEDS: Spironolactone TAB* 25 MG PO SCH (09:24)
[2017-11-29] MEDS: Ramipril CAP* 5 MG PO SCH (09:24)
[2017-11-29] MEDS: Aspirin 81 mg CHEW TAB* 81 MG TAB.CHEW PO SCH (09:24)
[2017-11-29] MEDS: Metoprolol Succinate XL TAB* 50 MG PO SCH (09:25)
[2017-11-29] MEDS: FERROUS SULFATE PO SCH (09:25)
[2017-11-29] MEDS: Acetaminophen TAB* 325 MG PO PRN (10:14)
[2017-11-29] MEDS: Ibuprofen TAB* 800 MG PO PRN (10:14)
--- NOTE | 2017-11-29 16:14 | PN ---
Subjective - Subjective Date of Service: 11/29/17 Service Type: [id number] Hosp care 35 min high complexity Subjective: Mo is quite pleasant today. He reports good sleep with Zyprexa, although he feels like to dose is too high. We will reduce to 2.5 mg QHS while in the hospital. Erin, Mo, Mo's Dorota, and I spoke at length about their experiences together as well as Mo's experience in the hospital. This hospitalization has not been a good one for Mo, but he has nevertheless arrived at a place where he is rested. His Depakote level is 90 right now, but this could be because Dorota double dosed him for two days beforehand yet also realizing that Mo missed doses for 2-4 days before that. We made an agreement that he would take the regular dose of 500 mg QDay going forward and would agree to get lab values assessed at the clinic in the near future. Objective - Appearance Appearance: Healthy Appearing Dysmorphic Features: No Hygiene: Normal Grooming: Fairly Well Kept - Behavior Psychomotor Activities: Normal Exhibits Abnormal Movement: No - Attitude and Relatedness Attitude and Relatedness: Cooperative Eye Contact: Good - Speech Quality: Unpressured Latencies: Normal Quantity: Appropriate - Mood Patient's Decription of Mood: "Okay" - Affect Observed Affect: Good Affect Consistent with: Euthymia - Thought Process Patient's Thought Process: Coherent, Goal Directed Thought Content: No Passive Wish, No Suicidal Planning, No Homicidal Ideation, No Paranoid Ideation - Sensorium Experiencing Hallucinations: No, Sensorium is Clear Type of Hallucinations: Visual: No, Auditory: No, Command: No - Level of Consciousness Level of Consciousness: Alert Orientation: Yes Intact, Yes Orientated to Time, Yes Orientated to Place, Yes Orientated to Person - Impulse Control Impulse Control: Intact - Insight and Judgement Insight and Judgement: Good - Group Participation Particating in Group Activities: Yes - Medication Management Medication Management Adherence: Yes - Additional Observations Comments: Mo is dressed properly and is generally in control of himself. He is getting along well with others and offering constructive, positive feedback to some other patients. Assessment - Assessment Merits Inpatient Hospitalization: For Immediate Safety, For Stabilization Inpatient DSM-V Dx: F31.81 Clinical Impression: Mo was demonstrating typical symptoms of a person with bipolar disorder I bari. He was pleasant at times and at other times took extreme umbrage with information that was presented to him. At this point, with significant sleep improvements, he is much better related and is agreeable and makes excellent points in conversation. Plan - Plan Treatment Plan: Name: MO GARCIA Birthdate: 1950 [id number] Mo has improved significantly. Visiting with his , Dorota, leads to the conclusion that he has a supportive and loving environment. Mo is willing to take Zyprexa 2.5 mg at bedtime when he is in need of rest and will try the 2.5mg here at the hospital to try it out for a night. We will plan on discharging him on Wednesday in the evening after dinner and give him an appointment at the [facility] on Wednesday. Medications: Current Medications Acetaminophen (Tylenol Tab*) 650 mg PO Q4H PRN PRN Reason: PAIN Last Admin: 11/29/17 10:14 Dose: 650 mg Al Hydrox/Mg Hydrox/Simethicone (Maalox Plus*) 30 ml PO Q4H PRN PRN Reason: INDIGESTION Amiodarone HCl (Cordarone Tab*) 200 mg PO DAILY [facility] Last Admin: 11/29/17 09:24 Dose: 200 mg Amlodipine Besylate (Norvasc Tab*) 5 mg PO DAILY [facility] Last Admin: 11/29/17 09:24 Dose: 5 mg Aspirin (Aspirin 81 Mg Chew Tab*) 81 mg PO DAILY [facility] Last Admin: 11/29/17 09:24 Dose: 81 mg Divalproex Sodium (Depakote Er Tab(*)) 500 mg PO BEDTIME [facility] Last Admin: 11/28/17 20:44 Dose: 500 mg Haloperidol (Haldol Tab*) 5 mg PO Q6H PRN PRN Reason: AGITATION Ibuprofen (Motrin Tab*) 800 mg PO Q8H PRN PRN Reason: PAIN Last Admin: 11/29/17 10:14 Dose: 800 mg Lorazepam (Ativan Tab(*)) 1 mg PO Q6H PRN PRN Reason: AGITATION Last Admin: 11/28/17 19:34 Dose: 1 mg Metoprolol Succinate (Toprol Xl Tab*) 50 mg PO DAILY [facility] Last Admin: 11/29/17 09:25 Dose: 50 mg Non-Formulary Medication (Ferrous Sulfate [Slow Release Iron]) 143 mg PO DAILY [facility] Last Admin: 11/29/17 09:25 Dose: Not Given Olanzapine (Zyprexa Tab*) 2.5 mg PO BEDTIME [facility] Ramipril (Altace Cap*) 5 mg PO DAILY [facility] Last Admin: 11/29/17 09:24 Dose: 5 mg Spironolactone (Aldactone Tab*) 25 mg PO DAILY [facility] Last Admin: 11/29/17 09:24 Dose: 25 mg - Discharge Plan Discharge Plan: Outpatient Follow Up Outpatient Program: [facility]
[2017-11-29] MEDS ORDERED: OLANzapine TAB* 5 MG PO SCH (21:00)
[2017-11-29] MEDS: Divalproex ER TAB(*) 500 MG PO SCH (21:38)
[2017-11-30] MEDS: LORazepam TAB(*) 1 MG PO PRN (00:36)
[2017-11-30 08:21] VITALS: BP 147/78
[2017-11-30] MEDS: Amiodarone TAB* 200 MG PO SCH (08:50)
[2017-11-30] MEDS: Ramipril CAP* 5 MG PO SCH (08:50)
[2017-11-30] MEDS: Metoprolol Succinate XL TAB* 50 MG PO SCH (08:50)
[2017-11-30] MEDS: Aspirin 81 mg CHEW TAB* 81 MG TAB.CHEW PO SCH (08:50)
[2017-11-30] MEDS: Spironolactone TAB* 25 MG PO SCH (08:50)
[2017-11-30] MEDS: amLODIPine TAB* 5 MG PO SCH (08:50)
[2017-11-30] MEDS: Ibuprofen TAB* 800 MG PO PRN (08:55)
[2017-11-30] MEDS: Acetaminophen TAB* 325 MG PO PRN (08:55)
[2017-11-30] MEDS: FERROUS SULFATE PO SCH (08:57)
--- NOTE | 2017-12-01 12:42 | DS ---
CC: Dr. Lou Castorean, [facility] * DATE OF ADMISSION: 11/24/2017. DATE OF DISCHARGE: 11/30/2017. PROVIDER: Shira Paz NP in Psychiatry. SUPERVISING PHYSICIAN: Dr. Walter Batista * (dictated by Shira Paz NP). DISCHARGE DIAGNOSES: AXIS I: Bipolar 1 disorder, most recent episode bari. AXIS II: Deferred. AXIS III: Marfan disease and others. CONDITION AT THE TIME OF DISCHARGE: Juan is improved. He is psychiatrically cleared. He is stable. He participated in groups and was social with peers much of the time. His is agreeable to discharge. He has done well here psychiatrically and tolerated Zyprexa for sleep and reduction of bari reasonably well. He will attend [facility]. MENTAL STATUS EXAM: At the time of discharge, the patient is calm and cooperative. His eye contact is fair. He is alert and oriented times three. His grooming is adequate. His speech pace is normal. His thought processes are logical. He is not psychotic or delusional. He denies AH, VH, SI, and HI. His insight is good. His judgment is fair. He is willing to follow-up at the [facility]. DISCHARGE INSTRUCTIONS TO THE PATIENT: A. Medications: This list is long due to several cardiac medications being included. Relevant medications include Valproic Acid 500 mg at bedtime and olanzapine 2.5 mg at bedtime prn insomnia, may repeat once after 30 minutes. The other medications include Ferrous Sulfate 143 mg, Spironolactone 25 mg, Ramipril 5 mg, aspirin 81 mg, Lorazepam 1 mg, Diphenhydramine 50 mg, Amiodarone 200 mg, ibuprofen 600 mg, Amlodipine 5 mg, Metoprolol 50 mg. B. Diet: Regular. C. Activities: As tolerated. Juan is a nonsmoker and there are no studies pending at the time of discharge. D. Follow-up care: [facility] E. Substance abuse follow-up: Not indicated as Juan does not use substances. HOSPITAL COURSE - PART A: Reason for admission: The patient is a 67-year-old man who is . He has a history of bipolar 1 disorder. 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 Juan has a long history of bipolar disorder, specifically bari. He has grandiose ideas. The current one is to run for [employer]'s senate seat on the [employer] ticket. He says this is based on his teacher's advice to him when he was in high school. He states "I'm a very, very brilliant person, I've always been number one." He does not remember the [facility]'s incident at all. He says that he went to get ice and he did not cross the road and he did not go to the drive-in window. He says that would be crazy. He says that people notice when he has not had a lot of sleep and he has not had much sleep lately. He has reduced his Depakote from 1000 mg to 500 mg at bedtime and his physical symptoms, things like arthritis and Marfan syndrome, are problematic for him and causing him pain. He, in fact, becomes tearful discussing this, stating that he has carpal tunnel syndrome. He has an ankle problem which he has seen doctors for and he has a brace and a crutch for, which he does not want here because he says that everything is getting better and he has arthritis in his hands pretty clearly and he grieves that he cannot do small tasks as he once could. He says "I've a technology to deal with this and that is to work, and that is why I work harder than anyone I know." He is extremely distractible. He is grandiose. He has some circumstantial speech. He read to me from a document that he carries in his pocket that he wrote ten years ago. He is a bit fidgety. There is a sleep deficit and he is quite chatty. HOSPITAL COURSE - PART B: Psychiatric treatment rendered: The patient was admitted to the [facility] and placed on 15 minute checks for safety. Once Juan got some sleep, thanks to Zyprexa 5 mg at bedtime, he did well on the unit and appropriately went to groups and interacted with peers well. He did tolerate the med change, although he did not like it. We did agree upon discharge to cut that dose in half with the option of taking it two times in order to get sleep, which he acknowledged was something he did not get enough of even though he does not really want to get enough of it. We did meet with his , Chhaya, and a gang pusher consult was entered for Juan. He is much improved. He is calmer, although this was not the best admission for him due to personality conflicts and he is feeling as though he can go on and make good decisions at this time. SHIRA PAZ, MARTHA [id number]/[facility] #: [id number] JANEY
--- NOTE | 2017-12-07 07:31 | ED ---
Obey العراقي Rebecca, scribed for Raymond Spivey MD on 11/23/17 at 1142 . Psychiatric Complaint - HPI Summary HPI Summary: Pt is a 67 y/o M who presents to ED as his was concerned about his mental health. Per nurse's triage, she is concerned that he is in bari and has not had his prescription in 5 days due to it being unfilled. On examination, the pt reports that he is taking all of his medication including Depakote and Modafinil. Nurse's triage also states that the pt has not slept in 3 days. does not presently accompany the pt, having left after dropping him off. Reports that his uncle recently . PMHx anxiety, depression, panic disorder, and bipolar disorder. - History Of Current Complaint Chief Complaint: EDMentalHealth Time Seen by Provider: 11/23/17 11:10 Hx Obtained From: Patient Onset/Duration: Still Present Character: Manic Aggravating Factor(s): Medication Non-compliance - 5 days without medication Associated Signs And Symptoms: Positive: Sleep Disturbance Related History: Positive For: Prior Psychiatric Issues - Anxiety, depression, bipolar disorder, panic disorder - Allergies/Home Medications Allergies/Adverse Reactions: Allergies Allergy/AdvReac Type Severity Reaction Status Date / Time No Known Allergies Allergy Verified 11/23/17 11:00 Home Medications: Home Medications Divalproex ER TAB(*) [Depakote ER TAB(*)] 500 mg PO BEDTIME 11/23/17 [History Confirmed 11/23/17] Ferrous Sulfate [Slow Release Iron] 143 mg PO DAILY 11/23/17 [History Confirmed 11/23/17] Ibuprofen TAB* [Motrin TAB* 600 MG] 600 mg PO Q8H PRN 11/23/17 [History Confirmed 11/23/17] Metoprolol Succinate XL TAB* [Toprol XL TAB*] 50 mg PO DAILY 11/23/17 [History Confirmed 11/23/17] Modafinil TAB* [Provigil TAB*] 200 mg PO BID 11/23/17 [History Confirmed ] PMH/Surg Hx/FS Hx/Imm Hx Endocrine/Hematology History: Denies: Hx Diabetes Cardiovascular History: Reports: Hx Atrial Fibrillation, Hx Congenital Heart Disease - murmur, Hx Congestive Heart Failure, Hx Coronary Artery Disease - Stent x2 2007, Hx Hypercholesterolemia, Hx Hypertension, Other Cardiovascular Problems/Disorders - cardiomyopathy Denies: Hx Angina - denies, Hx Myocardial Infarction, Hx Pacemaker/ICD, Hx Valvular Heart Disease Respiratory History: Reports: Hx Pulmonary Embolism - possible, Other Respiratory Problems/Disorders - SOB D/T WEAKNESS Denies: Hx Asthma, Hx Chronic Obstructive Pulmonary Disease (COPD), Hx Pneumonia GI History: Reports: Hx Hiatal Hernia, Other GI Disorders - abdominal hernia History: Reports: Hx Benign Prostatic Hyperplasia - maybe Denies: Hx Dialysis Musculoskeletal History: Reports: Hx Arthritis, Hx Back Problems, Other Musculoskeletal History - Marfan's Syndrome Sensory History: Reports: Hx Contacts or Glasses - reading, Hx Macular Degeneration - lense implants x2 Denies: Hx Hearing Aid Opthamlomology History: Reports: Hx Contacts or Glasses - reading, Hx Macular Degeneration - lense implants x2 Neurological History: Reports: Hx Headaches, Hx Nerve Disease, Other Neuro Impairments/Disorders - MARFAN'S SYNDROME Denies: Hx Dementia, Hx Seizures Psychiatric History: Reports: Hx Anxiety, Hx Attention Deficit Hyperactivity Disorder, Hx Depression, Hx Panic Disorder - agorophobia, Hx Inpatient Treatment , Hx Community Mental Health Tx, Hx Bipolar Disorder Denies: Hx Eating Disorder, Hx of Violent Episodes Against Others - Surgical History Surgery Procedure, Year, and Place: left knee surgery, left wrist, abdominal hernia x2, cardiac cath 2009ish. dates unknown. STENTS X2 2007 Hx Anesthesia Reactions: No Infectious Disease History: No Infectious Disease History: Reports: Hx Shingles Denies: Hx Clostridium Difficile, Hx Hepatitis, Hx Human Immunodeficiency Virus (HIV), Hx of Known/Suspected MRSA, Hx Tuberculosis, History Other Infectious Disease, Traveled Outside the [place] in Last 30 Days - Family History Known Family History: Positive: Cardiac Disease - Social History Alcohol Use: Rare Alcohol Amount: 2 X YEAR Hx Substance Use: No Substance Use Type: Reports: None Hx Tobacco Use: Yes Smoking Status (MU): Former Smoker Type: Cigarettes Amount Used/How Often: 5-7/day Length of Time of Smoking/Using Tobacco: 16 years total Have You Smoked in the Last Year: No Review of Systems Negative: Fever, Chills Negative: Erythema Negative: Sore Throat Negative: Chest Pain Negative: Shortness Of Breath, Cough Negative: Abdominal Pain, Vomiting, Nausea Negative: dysuria, hematuria Negative: Myalgia, Edema Negative: Rash Neurological: Other - Insomnia (3 days without sleep); Negative: Dizziness Positive: Other - Bari All Other Systems Reviewed And Are Negative: Yes Physical Exam - Summary Physical Exam Summary: Constitutional: Well-developed, Well-nourished, Alert. (-) Distressed Skin: Warm, Dry HENT: Normocephalic; Atraumatic Eyes: Conjunctiva normal Neck: Musculoskeletal ROM normal neck. (-) JVD, (-) Stridor, (-) Tracheal deviation Cardio: Rhythm regular, rate normal, Heart sounds normal; Intact distal pulses; The pedal pulses are 2+ and symmetric. Radial pulses are 2+ and symmetric. (-) Murmur Pulmonary/Chest wall: Effort normal. (-) Respiratory distress, (-) Wheezes, (-) Rales Abd: Soft, (-), epigastric tenderness, (-) Distension, (-) Guarding, (-) Rebound Musculoskeletal: (-) Edema Lymph: (-) Cervical adenopathy Neuro: Alert, Oriented x3 Psych: Animated, delusions of grandeur, tangential flight of ideas, pressured speech Triage Information Reviewed: Yes Vital Signs On Initial Exam: Initial Vitals Temp Pulse Resp BP Pulse Ox 98.6 F 110 18 167/83 95 11/23/17 10:58 11/23/17 10:58 11/23/17 10:58 11/23/17 10:58 11/23/17 10:58 Vital Signs Reviewed: Yes Diagnostics - Vital Signs Vital Signs Temp Pulse Resp BP Pulse Ox 11/23/17 10:58 98.6 F 110 18 167/83 95 - Laboratory Result Diagrams: 11/23/17 11:29 11/23/17 11:29 Lab Statement: Any lab studies that have been ordered have been reviewed, and results considered in the medical decision making process. Course/Dx - Course Assessment/Plan: Pt is a 67 y/o M who presents to ED as his was concerned about his mental health. Per nurse's triage, she is concerned that he is in bari and has not had his prescription in 5 days due to it being unfilled. On examination, the pt reports that he is taking all of his medication including Depakote and Modafinil. Nurse's triage also states that the pt has not slept in 3 days. does not presently accompany the pt, having left after dropping him off. Reports that his uncle recently . PMHx anxiety, depression, panic disorder, and bipolar disorder. In the ED course, pt was medically sedated with Benadryl, Haldol, and Ativan. Medically cleared for MHE at 1445. Pt will be signed out to Dr. Knox, pending dispo, awaiting MHE. - Differential Dx/Clinical Impression Provider Diagnosis: Bari Discharge - Sign-Out/Discharge Documenting (check all that apply): Sign-Out Patient Signing out patient TO: Yonatan Knox - Awaiting [facility]HE - Discharge Plan Referrals: David Putnam MD [Primary Care Provider] - The documentation as recorded by the Obey rosa Rebecca accurately reflects the service I personally performed and the decisions made by , Raymond Spivey MD.
--- NOTE | 2017-12-14 14:15 | ED ---
Talia العراقي Julia, scribed for David Angeles MD on 11/24/17 at 1658 . Progress - Consult/PCP Time Called: 15:00 Course/Dx - Course Course Of Treatment: Dr. Batista is admitting patient for bipolar disorder - Diagnoses Provider Diagnoses: Bipolar disorder Discharge - Sign-Out/Discharge Documenting (check all that apply): Discharge/Admit/Transfer - admit - Discharge Plan Condition: Stable Disposition: ADMITTED TO [facility] Referrals: David Putnam MD [Primary Care Provider] - The documentation as recorded by the Talia rosa Julia accurately reflects the service I personally performed and the decisions made by Karthik buenrostro Walter, MD.
== END 2017-11-30 18:10 | disposition home or self-care (01) | DRG 885 ==
LOC: ED 10:56 → BSU 11-24 13:22
PROVIDERS: ADMIT Psychiatry & Neurology Psychiatry; ATTEND Psychiatry & Neurology Psychiatry
DX: F31.10 Bipolar disorder, current episode manic without psychotic features, unspecified (principal); Q87.40 Marfan syndrome, unspecified; M19.90 Unspecified osteoarthritis, unspecified site; F31.81 Bipolar II disorder
CPT/HCPCS: 36415; 80053; 80164; 80320; 80329; 84443; 85025; 99222; 99231; 99233; 99238; 99284; A9270-GY; G0480; J1200; J1630

== ENCOUNTER 2017-12-15 18:59 | Emergency (ER) | payer MEDICARE ==
[2017-12-15] MEDS ORDERED: Clindamycin 600 MG IVPREMIX(* 600 MG/50 ML SDV IV ONE (19:27)
--- NOTE | 2017-12-15 19:34 | ED ---
Throat Pain/Nasal Congestion - HPI Summary HPI Summary: 67 year male presents with dental pain for the past 4 days. He states he went to an urgent care was placed on Augmentin. He states the swelling continues to increase. He has been on Augmentin for 2 days. swelling greatest on left lower jaw. dental pain though is in left upper teeth. No fevers. No chest pain or shortness breath. No difficulty swelling. No pain or swelling around his eyes. He has an extensive cardiac history. He has not seen a dentist for this yet. - History of Current Complaint Chief Complaint: EDDentalPain Time Seen by Provider: 12/15/17 19:18 - Allergies/Home Medications Allergies/Adverse Reactions: Allergies Allergy/AdvReac Type Severity Reaction Status Date / Time No Known Allergies Allergy Verified 12/15/17 19:05 PMH/Surg Hx/FS Hx/Imm Hx Endocrine/Hematology History: Denies: Hx Diabetes Cardiovascular History: Reports: Hx Atrial Fibrillation, Hx Congenital Heart Disease - murmur, Hx Congestive Heart Failure, Hx Coronary Artery Disease - Stent x2 2007, Hx Hypercholesterolemia, Hx Hypertension, Other Cardiovascular Problems/Disorders - cardiomyopathy Denies: Hx Angina - denies, Hx Myocardial Infarction, Hx Pacemaker/ICD, Hx Valvular Heart Disease Respiratory History: Reports: Hx Pulmonary Embolism - possible, Other Respiratory Problems/Disorders - SOB D/T WEAKNESS Denies: Hx Asthma, Hx Chronic Obstructive Pulmonary Disease (COPD), Hx Pneumonia GI History: Reports: Hx Hiatal Hernia, Other GI Disorders - abdominal hernia History: Reports: Hx Benign Prostatic Hyperplasia - maybe Denies: Hx Dialysis Musculoskeletal History: Reports: Hx Arthritis, Hx Back Problems, Other Musculoskeletal History - Marfan's Syndrome Sensory History: Reports: Hx Contacts or Glasses - reading, Hx Macular Degeneration - lense implants x2, Hx Vision Problem - Pt states he has "blurry vision" Denies: Hx Hearing Aid Opthamlomology History: Reports: Hx Contacts or Glasses - reading, Hx Macular Degeneration - lense implants x2, Hx Vision Problem - Pt states he has "blurry vision" Neurological History: Reports: Hx Headaches, Hx Nerve Disease, Other Neuro Impairments/Disorders - MARFAN'S SYNDROME Denies: Hx Dementia, Hx Seizures Psychiatric History: Reports: Hx Anxiety, Hx Attention Deficit Hyperactivity Disorder, Hx Depression, Hx Panic Disorder - agorophobia, Hx Inpatient Treatment , Hx Community Mental Health Tx, Hx Bipolar Disorder, Hx Substance Abuse Denies: Hx Eating Disorder, Hx of Violent Episodes Against Others - Surgical History Surgery Procedure, Year, and Place: left knee surgery, left wrist, abdominal hernia x2, cardiac cath 2009ish. dates unknown. STENTS X2 2008 Hx Anesthesia Reactions: No Infectious Disease History: No Infectious Disease History: Reports: Hx Shingles Denies: Hx Clostridium Difficile, Hx Hepatitis, Hx Human Immunodeficiency Virus (HIV), Hx of Known/Suspected MRSA, Hx Tuberculosis, History Other Infectious Disease, Traveled Outside the US in Last 30 Days - Family History Known Family History: Positive: Cardiac Disease - Social History Alcohol Use: Rare Alcohol Amount: 2 X YEAR Hx Substance Use: No Substance Use Type: Reports: None Substance Use Comment - Amount & Last Used: Pt states that he does use recreational substances, but declines to elabora Hx Tobacco Use: Yes Smoking Status (MU): Former Smoker Type: Cigarettes Amount Used/How Often: 5-7/day Length of Time of Smoking/Using Tobacco: 16 years total Have You Smoked in the Last Year: No Review of Systems Negative: Fever Positive: Dental Pain Negative: Chest Pain Negative: Shortness Of Breath All Other Systems Reviewed And Are Negative: Yes Physical Exam Triage Information Reviewed: Yes Vital Signs On Initial Exam: Initial Vitals Temp Pulse Resp BP Pulse Ox 99.0 F 77 17 161/93 93 12/15/17 19:04 12/15/17 19:04 12/15/17 19:04 12/15/17 19:04 12/15/17 19:04 Vital Signs Reviewed: Yes Appearance: Positive: Well-Appearing Skin: Positive: Warm, Dry Head/Face: Positive: Other - swelling to left side of face Eyes: Positive: Normal, EOMI, VENITA, Conjunctiva Clear Dental: Positive: Percussion Tenderness @ - 13, Gross Decay/Caries @ - throughout, Abscess @ - edema felt left lower jaw Neck: Positive: Supple, Nontender, No Lymphadenopathy Respiratory/Lung Sounds: Positive: Clear to Auscultation, Breath Sounds Present Cardiovascular: Positive: Normal, RRR Musculoskeletal: Positive: Normal Neurological: Positive: Normal Psychiatric: Positive: Normal Diagnostics - Vital Signs Vital Signs Temp Pulse Resp BP Pulse Ox 12/15/17 19:04 99.0 F 77 17 161/93 93 - Laboratory Result Diagrams: 12/15/17 19:45 12/15/17 19:45 Lab Statement: Any lab studies that have been ordered have been reviewed, and results considered in the medical decision making process. EENT Course/Dx - Course Course Of Treatment: 67 year male presents with dental pain for the past 4 days. He states he went to an urgent care was placed on Augmentin. He states the swelling continues to increase. He has been on Augmentin for 2 days. swelling greatest on left lower jaw. dental pain though is in left upper teeth. No fevers. No chest pain or shortness breath. No difficulty swelling. No pain or swelling around his eyes. He has an extensive cardiac history. He has not seen a dentist for this yet. on exam has edema to left side of face. no definitive abscess felt. tenderness tooth 13. no lymphadenopathy. lungs CTA. labs wbc normal. lactic normal. gave dose of iv clindamycin and will have continue clindamycin PO. told to follow up with dentist. patient understand and agrees with plan. - Differential Diagnoses Differential Diagnoses: Dental Abscess, Dental Caries, Fractured Tooth - Diagnoses Provider Diagnoses: Dental infection Discharge - Sign-Out/Discharge Documenting (check all that apply): Discharge/Admit/Transfer - Discharge Plan Condition: Good Disposition: HOME Prescriptions: Clindamycin Cap(NF) [Clindamycin Cap 300 mg Cap(NF)] 300 mg PO TID #30 cap Patient Education Materials: Dental Abscess (ED) Referrals: David Putnam MD [Primary Care Provider] - Additional Instructions: stop augmentin, start clindamycin three times a day for 10 days Take tyenlol every 6 hours for pain as needed, use ibuprofen twice a day for swelling Avoid hard, crunchy food until seen by dentist Follow up with dentist as soon as possible Return to ED if develop fever, shortness of breath, pain with eye movement or swelling around eye - Billing Disposition and Condition Condition: GOOD Disposition: Home Images - Images Dental: 1 - pain
[2017-12-15 19:58] LABS: ABS Basophils 0.1 10^3/ul (0-0.2); ABS Eosinophils 0.1 10^3/ul (0-0.6); ABS Lymphocytes 1.6 10^3/ul (1.0-4.8); ABS Monocytes 0.7 10^3/ul (0-0.8); ABS Nucleated RBC 0 10^3/ul; Eosinophil % 1.2 % (0-6); Hematocrit 37 % (42-52); Hemoglobin 12.9 g/dl (14.0-18.0); Lymphocyte % 19.1 % (25-47); Mean Corpuscular HGB Conc 35 g/dl (31-36); Mean Corpuscular Hemoglobin 33 pg (27-31); Mean Corpuscular Volume 95 fL (80-94); Mean Platelet Volume 7.5 um3 (7.4-10.4); Nucleated Red Blood Cells % 0.1; Platelet Count 215 10^3/ul (150-450); Red Blood Count 3.92 10^6/ul (4.00-5.40); Red Cell Distribution Width 14 % (10.5-15); White Blood Count 8.5 10^3/ul (3.5-10.8)
[2017-12-15 20:58] VITALS: BP 132/79
== END 2017-12-15 20:57 | disposition home or self-care (01) ==
LOC: ED 18:59
DX: K04.7 Periapical abscess without sinus (principal); I48.91 Unspecified atrial fibrillation; I25.10 Atherosclerotic heart disease of native coronary artery without angina pectoris; I11.0 Hypertensive heart disease with heart failure; Z95.5 Presence of coronary angioplasty implant and graft; I42.9 Cardiomyopathy, unspecified; Z86.711 Personal history of pulmonary embolism; Q87.40 Marfan syndrome, unspecified; F90.9 Attention-deficit hyperactivity disorder, unspecified type; F41.9 Anxiety disorder, unspecified; F32.9 Major depressive disorder, single episode, unspecified; Z82.41 Family history of sudden cardiac death; Z87.891 Personal history of nicotine dependence
CPT/HCPCS: 36415; 80053; 83605; 85025; 87040; 96365; 99282

== ENCOUNTER 2017-12-29 12:21 | Inpatient (IN) | payer MEDICARE ==
[2017-12-29 13:24] LABS: ABS Basophils 0 10^3/ul (0-0.2); ABS Eosinophils 0 10^3/ul (0-0.6); ABS Lymphocytes 1.5 10^3/ul (1.0-4.8); ABS Monocytes 0.6 10^3/ul (0-0.8); ABS Neutrophils 7.4 10^3/ul (1.5-7.7); ABS Nucleated RBC 0 10^3/ul; Eosinophil % 0.1 % (0-6); Hematocrit 37 % (42-52); Hemoglobin 12.7 g/dl (14.0-18.0); Mean Corpuscular HGB Conc 34 g/dl (31-36); Mean Corpuscular Hemoglobin 32 pg (27-31); Mean Corpuscular Volume 94 fL (80-94); Mean Platelet Volume 7.1 um3 (7.4-10.4); Nucleated Red Blood Cells % 0.1; Platelet Count 256 10^3/ul (150-450); Red Blood Count 3.96 10^6/ul (4.00-5.40); Red Cell Distribution Width 14 % (10.5-15); White Blood Count 9.5 10^3/ul (3.5-10.8)
[2017-12-29 13:35] LABS: Urine Appearance Clear; Urine Blood Negative (Negative); Urine Color Yellow; Urine Ketones Negative (Negative); Urine Protein Negative (Negative); Urine Specific Gravity 1.026 (1.010-1.030); Urine Urobilinogen Negative (Negative)
--- NOTE | 2017-12-29 13:37 | ED ---
Psychiatric Complaint - HPI Summary HPI Summary: This patient is a 67 year old M presenting to [facility] accompanied by his with a chief complaint of bari since 12/27/17. Pt denies sleeping well since his uncle passed 6 weeks ago. Pt in a manic state, PMHx bipolar bari. Pt denies drugs, smoking, drinking. Pt has ankle issues, swelling, decreased ROM, so he shouldnt be walking around, but he is trying to and is a danger to himself. PMHx CHF, afib, stents. PMhx scoliosis. - History Of Current Complaint Chief Complaint: EDMentalHealth Time Seen by Provider: 12/29/17 12:33 Hx Obtained From: Patient, Family/Phd Intern Onset/Duration: Sudden Onset, Lasting Days, Still Present Timing: Constant Severity Initially: Moderate Severity Currently: Moderate Character: Manic, Anxious Aggravating Factor(s): Recent Stress - Uncle's Alleviating Factor(s): Nothing Associated Signs And Symptoms: Positive: Sleep Disturbance Related History: Positive For: Prior Psychiatric Issues Has Suicidal: Denies: Thoughts Has Homicidal: Denies: Thoughts - Allergies/Home Medications Allergies/Adverse Reactions: Allergies Allergy/AdvReac Type Severity Reaction Status Date / Time No Known Allergies Allergy Verified 12/15/17 19:05 Home Medications: Home Medications Amiodarone TAB* [Cordarone TAB*] 200 mg PO DAILY 12/29/17 [History Confirmed ] Aspirin EC TAB* [Ecotrin EC Low Dose 81 MG*] 81 mg PO DAILY 12/29/17 [History Confirmed 12/29/17] Divalproex ER TAB(*) [Depakote ER TAB(*)] 500 mg PO BEDTIME 12/29/17 [History Confirmed 12/29/17] Ibuprofen TAB* [Motrin TAB* 600 MG] 600 mg PO Q8H PRN 12/29/17 [History Confirmed 12/29/17] LORazepam TAB(*) [Ativan 1 MG TAB (*)] 1 mg PO BEDTIME PRN 12/29/17 [History Confirmed 12/29/17] Magnesium Chloride EC TAB* [Slow Mag EC TAB*] 143 mg PO DAILY 12/29/17 [History Confirmed 12/29/17] Metoprolol Succinate XL TAB* [Toprol XL TAB*] 50 mg PO DAILY 12/29/17 [History Confirmed 12/29/17] Modafinil TAB* [Provigil TAB*] 200 mg PO BID 12/29/17 [History Confirmed ] OLANzapine TAB* [Zyprexa 2.5 MG TAB*] 2.5 mg PO BEDTIME PRN 12/29/17 [History Confirmed 12/29/17] Ramipril CAP* [Altace CAP*] 5 mg PO DAILY 12/29/17 [History Confirmed 12/29/17] Spironolactone TAB* [Aldactone TAB*] 25 mg PO DAILY 12/29/17 [History Confirmed 12/29/17] amLODIPine TAB* [Norvasc 5 mg TAB*] 5 mg PO DAILY 12/29/17 [History Confirmed ] PMH/Surg Hx/FS Hx/Imm Hx Endocrine/Hematology History: Denies: Hx Diabetes Cardiovascular History: Reports: Hx Atrial Fibrillation, Hx Congenital Heart Disease - murmur, Hx Congestive Heart Failure, Hx Coronary Artery Disease - Stent x2 2007, Hx Hypercholesterolemia, Hx Hypertension, Other Cardiovascular Problems/Disorders - cardiomyopathy Denies: Hx Angina - denies, Hx Myocardial Infarction, Hx Pacemaker/ICD, Hx Valvular Heart Disease Respiratory History: Reports: Hx Pulmonary Embolism - possible, Other Respiratory Problems/Disorders - SOB D/T WEAKNESS Denies: Hx Asthma, Hx Chronic Obstructive Pulmonary Disease (COPD), Hx Pneumonia GI History: Reports: Hx Hiatal Hernia, Other GI Disorders - abdominal hernia History: Reports: Hx Benign Prostatic Hyperplasia - maybe Denies: Hx Dialysis Musculoskeletal History: Reports: Hx Arthritis, Hx Back Problems, Other Musculoskeletal History - Marfan's Syndrome Sensory History: Reports: Hx Contacts or Glasses - reading, Hx Macular Degeneration - lense implants x2, Hx Vision Problem - Pt states he has "blurry vision" Denies: Hx Hearing Aid Opthamlomology History: Reports: Hx Contacts or Glasses - reading, Hx Macular Degeneration - lense implants x2, Hx Vision Problem - Pt states he has "blurry vision" Neurological History: Reports: Hx Headaches, Hx Nerve Disease, Other Neuro Impairments/Disorders - MARFAN'S SYNDROME Denies: Hx Dementia, Hx Seizures Psychiatric History: Reports: Hx Anxiety, Hx Attention Deficit Hyperactivity Disorder, Hx Depression, Hx Panic Disorder - agorophobia, Hx Inpatient Treatment , Hx Community Mental Health Tx, Hx Bipolar Disorder, Hx Substance Abuse Denies: Hx Eating Disorder, Hx of Violent Episodes Against Others - Surgical History Surgery Procedure, Year, and Place: left knee surgery, left wrist, abdominal hernia x2, cardiac cath 2009ish. dates unknown. STENTS X2 2007 Hx Anesthesia Reactions: No Infectious Disease History: No Infectious Disease History: Reports: Hx Shingles Denies: Hx Clostridium Difficile, Hx Hepatitis, Hx Human Immunodeficiency Virus (HIV), Hx of Known/Suspected MRSA, Hx Tuberculosis, History Other Infectious Disease, Traveled Outside the [place] in Last 30 Days - Family History Known Family History: Positive: Cardiac Disease - Social History Alcohol Use: Occasionally Alcohol Amount: 2x month Hx Substance Use: No Substance Use Type: Reports: None Substance Use Comment - Amount & Last Used: Pt states that he does use recreational substances, but declines to elabora Hx Tobacco Use: Yes Smoking Status (MU): Former Smoker Type: Cigarettes Amount Used/How Often: 5-7/day Length of Time of Smoking/Using Tobacco: 16 years total Have You Smoked in the Last Year: No Review of Systems Positive: Arthralgia - ankle, Decreased ROM, Edema Positive: Bruising - ankle, Other - swelling of ankle Positive: Anxious, Other - manic All Other Systems Reviewed And Are Negative: Yes Physical Exam - Summary Physical Exam Summary: Appearance: Well appearing, no pain distress Skin: warm, dry, reflects adequate perfusion Head/face: normal Eyes: EOMI, VENITA ENT: normal Neck: supple, non-tender Respiratory: CTA, breath sounds present Cardiovascular: RRR, pulses symmetrical Abdomen: non-tender, soft Bowel: present Musculoskeletal: normal, strength/ROM intact Neuro: normal, sensory motor intact, A&Ox3 Psych: anxious affect Triage Information Reviewed: Yes Vital Signs On Initial Exam: Initial Vitals Temp Pulse Resp BP Pulse Ox 99.7 F 77 20 177/100 95 12/29/17 12:26 12/29/17 12:26 12/29/17 12:26 12/29/17 12:26 12/29/17 12:26 Vital Signs Reviewed: Yes Diagnostics - Vital Signs Vital Signs Temp Pulse Resp BP Pulse Ox 12/29/17 12:26 99.7 F 77 20 177/100 95 - Laboratory Lab Results: Lab Results 12/29/17 12/29/17 Range/Units 13:05 13:12 WBC 9.5 (3.5-10.8) 10^3/ul RBC 3.96 L (4.00-5.40) 10^6/ul Hgb 12.7 L (14.0-18.0) g/dl Hct 37 L (42-52) % MCV 94 (80-94) fL MCH 32 H (27-31) pg MCHC 34 (31-36) g/dl RDW 14 (10.5-15) % Plt Count 256 (150-450) 10^3/ul MPV 7.1 L (7.4-10.4) um3 Neut % (Auto) 77.4 (38-83) % Lymph % (Auto) 16.0 L (25-47) % Lee % (Auto) 6.1 (0-7) % Eos % (Auto) 0.1 (0-6) % Baso % (Auto) 0.4 (0-2) % Absolute Neuts (auto) 7.4 (1.5-7.7) 10^3/ul Absolute Lymphs (auto) 1.5 (1.0-4.8) 10^3/ul Absolute Monos (auto) 0.6 (0-0.8) 10^3/ul Absolute Eos (auto) 0 (0-0.6) 10^3/ul Absolute Basos (auto) 0 (0-0.2) 10^3/ul Absolute Nucleated RBC 0 10^3/ul Nucleated RBC % 0.1 Urine Color Yellow Urine Appearance Clear Urine pH 5.0 (5-9) Ur Specific [place] 1.026 (1.010-1.030) Urine Protein Negative (Negative) Urine Ketones Negative (Negative) Urine Blood Negative (Negative) Urine Nitrate Negative (Negative) Urine Bilirubin Negative (Negative) Urine Urobilinogen Negative (Negative) Ur Leukocyte Esterase Negative (Negative) Urine Glucose Negative (Negative) Result Diagrams: 12/29/17 13:12 12/29/17 13:12 Lab Statement: Any lab studies that have been ordered have been reviewed, and results considered in the medical decision making process. Course/Dx - Differential Dx/Clinical Impression Differential Diagnosis/HQI/PQRI: Positive: Acute Psychosis, Bipolar Disorder, Depression Provider Diagnosis: Bipolar disorder, manic Discharge - Sign-Out/Discharge Documenting (check all that apply): Patient Departure - admit - Discharge Plan Condition: Fair Disposition: ADMITTED TO [facility] Referrals: David Putnam MD [Primary Care Provider] - - Billing Disposition and Condition Condition: FAIR Disposition: Admitted to [facility]
[2017-12-29 13:43] LABS: EGFR Non-African American 38.7 (>60)
[2017-12-29] MEDS ORDERED: cloNIDine TAB* 0.1 MG PO ONE (16:45)
[2017-12-29] MEDS ORDERED: Al Hydrox/Mg Hydrox/Simet LIQ* 30 ML UDC PO PRN (20:19)
[2017-12-29] MEDS: Divalproex DR TAB(*) 500 MG PO SCH (21:27)
[2017-12-29] MEDS: Ibuprofen TAB* 600 MG PO PRN (21:28)
[2017-12-30] MEDS: OLANzapine TAB* 5 MG PO PRN ×2 (00:23→21:58)
[2017-12-30] MEDS: Acetaminophen TAB* 325 MG PO PRN ×2 (00:23→20:11)
[2017-12-30] MEDS: hydrOXYzine HCL TAB* 50 MG PO PRN ×2 (00:24→20:13)
[2017-12-30] MEDS: amLODIPine TAB* 5 MG PO SCH (09:10)
[2017-12-30] MEDS: Aspirin EC TAB* 81 MG TAB.EC PO SCH (09:10)
[2017-12-30] MEDS: Vitamin THERAPEUTIC TAB PO SCH (09:10)
[2017-12-30] MEDS: Metoprolol Succinate XL TAB* 50 MG PO SCH (09:11)
[2017-12-30] MEDS: Amiodarone TAB* 200 MG PO SCH (09:11)
[2017-12-30] MEDS: Spironolactone TAB* 25 MG PO SCH (09:11)
[2017-12-30] MEDS: Ferrous Sulfate TAB* 325 MG PO SCH (09:12)
[2017-12-30] MEDS: Divalproex DR TAB(*) 500 MG PO SCH ×2 (09:12→21:57)
[2017-12-30] MEDS: Ramipril CAP* 5 MG PO SCH (09:23)
--- NOTE | 2017-12-30 11:34 | PN ---
MHU: Group Therapy Note - Service Type Service Type: [id number] Group Psychotherapy - Cognitive Behavioral Therapy (CBT): Patient presents with high volume of speech that impresses as being coherent within the context of self-report, but is tangential and off topic in group context. Concerns regarding disorganization of thought are apparent.
--- NOTE | 2017-12-30 16:18 | PN ---
MHU: Group Therapy Note - Service Type Service Type: [id number] Group Psychotherapy - Group Participation Patient Participating in Group: Yes Level of Group Participation: Attentive, Spontaneously Participate Relatedness to Group: Well Related - Appearance Appearance: Healthy Appearing Hygiene: Normal Grooming: Well Kept - Behavior Psychomotor Activities: Abnormal-Increased Exhibits Abnormal Movement: No - Attitude and Relatedness Attitude and Relatedness: Needy Eye Contact: Good - Speech Quality: Pressured Latencies: Normal Quantity: Copious - Mood Patient's Decription of Mood: "Good" - Affect Observed Affect: Euphoric Affect Consistent with: Euphoria - Thought Process Patient's Thought Process: Over Inclusive Thought Content: No Passive Wish, No Suicidal Planning, No Homicidal Ideation, No Paranoid Ideation - Sensorium Experiencing Hallucinations: No, Sensorium is Clear Type of Hallucinations: Visual: No, Auditory: No, Command: No - Level of Consciousness Level of Consciousness: Alert Orientation: Yes Intact, Yes Orientated to Time, Yes Orientated to Place, Yes Orientated to Person - Impulse Control Impulse Control: Impaired - Insight and Judgement Insight and Judgement: Fair - Additional Group Comments Group Comments: Juan was the most spirited member of the group and the most challenging. He asked appropriate questions for the most part, although they did become increasingly less on the immediate topic.
--- NOTE | 2017-12-30 20:02 | HP ---
HISTORY AND PHYSICAL: DATE OF ADMISSION: 12/29/17 PROVIDER: Shira Paz NP, in Psychiatry. SUPERVISING PHYSICIAN: Graham Vickers MD.* (DICTATED BY SHIRA PAZ NP ) JUSTIFICATION FOR ADMISSION: The patient is in need of 24-hour supervision and care due to disorganization that is significant enough to impair his ability to take care of himself. CHIEF COMPLAINT: "My uncle Wilfredo 6 weeks ago, it is severe intense emotion. 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 He has a history of bipolar disorder, usually spraying into the area of bari, who arrives by ambulance, but not by 941 or 945 after finding that he can no longer manage and can no longer sleep. The story is difficult to come by as Juan is talking almost nonstop about [place] and the [place] and his uncles and his father and the number of languages they speak, etc. He finds that the stressor of his uncle, Wilfredo, dying 6 weeks ago, who was his last uncle on his dad's side of the family. It is the significant stressor that he cannot tolerate or manage adequately without help from outside people. He is hyperverbal. He is distractible. He is grandiose. There are flight of ideas. He cannot keep in 1 topic. His activity has increased. He is not sleeping. I did not elicit any ideas of high-risk behaviors, but he does have goal-directed behaviors as he is cleaning the house and says it is so important for him to clean that he cannot go to sleep for 3 days in a row. It should be noted that at last admission, which was about a month ago, Juan came in with taking the same Depakote dosage, which was 500 mg at bedtime and had a therapeutic level of 0.9, although we wanted to increase the dose, it was not possible as it would have become potentially toxic. The Zyprexa dosage was 5 mg , but Juan rejected the idea so strongly that we reduced it to 2.5 with the agreement that he and his would talk about when it was time to take it clearly that has not happened. PAST PSYCHIATRIC HISTORY: Previous admissions: According to Juan, his first psychiatric contact was at age 27 when he was seen for depression. He details that he was given Depakote. He said that he was hospitalized 33 years ago and he stayed for 6 weeks. He was hospitalized here in 2015 and again last month and before that in 1999. The bari is the most common presentation for Juan. He enjoys being elevated. He does not take always take positive feedback that he is a little more elevated that is reasonable and tenable. He states that he has taken many psychiatric meds in the past and that Depakote and Zyprexa are the best for him. PAST MEDICAL HISTORY: He has among many cardiac issues, he also has Marfan syndrome and he takes medications for these issues. FAMILY PSYCHIATRIC HISTORY: He denied any psychiatric history in the family. SUBSTANCE ABUSE: He denies substance abuse, although he is positive for cannabis in his tox screen. SOCIAL HISTORY: He says he has 2 sisters, 1 may be in [place], and another in [facility]. He is to Michelle. She also has bipolar disorder and she is quite anxious as well. He stated he has several different jobs, but he has been on disability for a few years. He does not drink alcohol on a regular basis. He gave up smoking a longtime ago and as I said, he tested positive for cannabis. REVIEW OF SYSTEMS: The patient reports feeling alert, but sleepless. He denies shortness of breath, heat or cold intolerance, chest pain or abdominal pain. He denies neurological symptoms. He denies fevers or changes in weight. PHYSICAL EXAM: VITAL SIGNS: Temperature on 12/29/17 at 1908 is 99.4, pulse 88, respiratory rate 22, oxygen saturation 99%, blood pressure 143/90. LABORATORY DATA: His RBC, his HGB, and HCT are all low. His hemoglobin A1c is 5.5. Triglycerides are 45, cholesterol is 219, LDL cholesterol is 130, HDL cholesterol is 79.7. Incidentally, his TSH was 1.08. His urine screen, UA looks good. Tox screen is positive for amphetamines, presumably because he takes Adderall outpatient and cannabinoids are positive too. His valproic acid level is 16.0, which is significantly lower than the therapeutic dose of 50 to 100. MENTAL STATUS EXAMINATION: This is a quite tall man, who is averagely built with rodriguez hair, currently wearing a blue yarmulke. He appears happy. He has a loud laugh and asks many probing questions and some of which are unhelpful, but seem to delight him. He currently denies SI, HI, AH, VH. His insight is fair. His judgement is fair. His impulse control is pretty good. Alert and oriented x3. DIAGNOSES: [place] I: Bipolar I disorder, currently manic. [place] II: No diagnosis. [place] III: Hypertension, cardiomyopathy, Marfan syndrome. [place] IV: of an uncle. [place] V: Global assessment of functioning is about 40. IMPRESSION: This is a 67-year-old man, who appears his stated age, who is manic at this time. He requires more sleep and is here to achieve that and to get his medications back in place. PLAN: The patient is admitted to the adult behavioral health unit and placed on q.15-minute checks for his own safety. Juan is encouraged to participate in the supportive milieu, individual, and group therapy and he appears to be doing that. His estimated length of stay is 5 to 7 days and we will titrate medications to efficacy and monitor for mood and thought content. Discharge planning will likely involve family involvement and definitely outpatient providers. SHIRA PAZ NP [id number]/CPS #: [id number] JANEY
[2017-12-30] MEDS: Ibuprofen TAB* 600 MG PO PRN (20:11)
[2017-12-31] MEDS: amLODIPine TAB* 5 MG PO SCH (08:51)
[2017-12-31] MEDS: Amiodarone TAB* 200 MG PO SCH (08:51)
[2017-12-31] MEDS: Metoprolol Succinate XL TAB* 50 MG PO SCH (08:51)
[2017-12-31] MEDS: Ferrous Sulfate TAB* 325 MG PO SCH (08:51)
[2017-12-31] MEDS: Aspirin EC TAB* 81 MG TAB.EC PO SCH (08:51)
[2017-12-31] MEDS: Ramipril CAP* 5 MG PO SCH (08:51)
[2017-12-31] MEDS: Spironolactone TAB* 25 MG PO SCH (08:51)
[2017-12-31] MEDS: Vitamin THERAPEUTIC TAB PO SCH (08:51)
[2017-12-31] MEDS: Divalproex DR TAB(*) 500 MG PO SCH ×2 (08:51→20:30)
[2017-12-31] MEDS: Ibuprofen TAB* 600 MG PO PRN ×2 (08:54→20:58)
--- NOTE | 2017-12-31 12:07 | PN ---
Subjective - Subjective Date of Service: 12/31/17 Service Type: 67315 Hosp care 15 min low complexity Subjective: Patient was seen by self, discussed with treatment team, chart was reviewed. Patient has been compliant with his medications, no reported side effects. Patient reportedly continues to be manic, impulsive, hypertalkative, grandiose, intrusive but less impulsive and some improvement than before. Patient sleeping was better than before. Patient eating has been better. Patient has been cooperative with staff. Patient behavior has been in control but requires multiple redirections. Patient mood was mixed and reportedly had some improvement in racing thoughts and flight of ideas. Patient has been reporting no suicidal or homicidal ideation. No psychotic symptoms of delusions or hallucinations. Objective - Appearance Appearance: Healthy Appearing Grooming: Disheveled - Behavior Psychomotor Activities: Abnormal-Increased Exhibits Abnormal Movement: No - Attitude and Relatedness Attitude and Relatedness: Cooperative Eye Contact: Fair - Speech Quality: Pressured Latencies: Short Quantity: Copious - Mood Patient's Decription of Mood: "Great" - Affect Observed Affect: Labile Affect Consistent with: Euphoria - Thought Process Patient's Thought Process: Tangential, Filght of Ideas Thought Content: No Passive Wish, No Suicidal Planning, No Homicidal Ideation, No Paranoid Ideation - Sensorium Experiencing Hallucinations: No, Sensorium is Clear Type of Hallucinations: Visual: No, Auditory: No, Command: No - Level of Consciousness Level of Consciousness: Alert Orientation: Yes Intact, Yes Orientated to Time, Yes Orientated to Place, Yes Orientated to Person - Impulse Control Impulse Control: Impaired - Insight and Judgement Insight and Judgement: Fair - Group Participation Particating in Group Activities: Yes - Medication Management Medication Management Adherence: Yes Assessment - Assessment Merits Inpatient Hospitalization: For Stabilization Inpatient DSM-V Dx: F31.2 Clinical Impression: Patient with history of Bipolar Diosrder. Patient currently admitted due to worsening of manic symptoms. Patient has also been struggling with amphetamine abuse and recent loss of his uncle. Patient is a danger to self, discharged hence medications are being adjusted and symptoms will be stabilized on inpatient. Plan - Plan Treatment Plan: Name: MO GARCIA Birthdate: 1950 [id number] - Patient continues to be hospitalized due to mood instability, anxiety and impulsivity. - Patient's medications were adjusted after informed consent with continuation of zyprexa and Depakote. Will obtain Depakote level and cmp on 01/02/18. - Patient will be monitored for improvement and side effects. Risk and benefits were discussed. - Patient was encouraged to continue his participation in the milieu, group and individual therapy. Medications: Current Medications Acetaminophen (Tylenol Tab*) 650 mg PO Q4H PRN PRN Reason: PAIN or TEMP > 101 F Last Admin: 12/30/17 20:11 Dose: 650 mg Al Hydrox/Mg Hydrox/Simethicone (Maalox Plus*) 30 ml PO Q4H PRN PRN Reason: INDIGESTION Amiodarone HCl (Cordarone Tab*) 200 mg PO DAILY [facility] Last Admin: 12/31/17 08:51 Dose: 200 mg Amlodipine Besylate (Norvasc Tab*) 5 mg PO DAILY [facility] Last Admin: 12/31/17 08:51 Dose: 5 mg Aspirin (Aspirin Ec Tab*) 81 mg PO DAILY [facility] Last Admin: 12/31/17 08:51 Dose: 81 mg Divalproex Sodium (Depakote Dr Tab(*)) 500 mg PO BID [facility] Last Admin: 12/31/17 08:51 Dose: 500 mg Ferrous Sulfate (Ferrous Sulfate Tab*) 325 mg PO DAILY [facility] Last Admin: 12/31/17 08:51 Dose: 325 mg Hydroxyzine HCl (Atarax Tab*) 50 mg PO Q6H PRN PRN Reason: ANXIETY Last Admin: 12/30/17 20:13 Dose: 50 mg Ibuprofen (Motrin Tab*) 600 mg PO Q8H PRN PRN Reason: PAIN Last Admin: 12/31/17 08:54 Dose: 600 mg Metoprolol Succinate (Toprol Xl Tab*) 50 mg PO DAILY [facility] Last Admin: 12/31/17 08:51 Dose: 50 mg Multivitamins (Theragran Tab*) 1 tab PO DAILY [facility] Last Admin: 12/31/17 08:51 Dose: 1 tab Olanzapine (Zyprexa Tab*) 5 mg PO BEDTIME PRN PRN Reason: SLEEP Last Admin: 12/30/17 21:58 Dose: 5 mg Ramipril (Altace Cap*) 5 mg PO DAILY [facility] Last Admin: 12/31/17 08:51 Dose: 5 mg Spironolactone (Aldactone Tab*) 25 mg PO DAILY [facility] Last Admin: 12/31/17 08:51 Dose: 25 mg
[2017-12-31] MEDS: Acetaminophen TAB* 325 MG PO PRN ×2 (13:31→20:31)
[2017-12-31] MEDS: hydrOXYzine HCL TAB* 50 MG PO PRN (20:58)
[2017-12-31] MEDS: OLANzapine TAB* 5 MG PO PRN (22:54)
[2018-01-01] MEDS: hydrOXYzine HCL TAB* 50 MG PO PRN ×2 (06:30→21:04)
[2018-01-01] MEDS: Ibuprofen TAB* 600 MG PO PRN ×2 (06:30→21:04)
[2018-01-01] MEDS: Acetaminophen TAB* 325 MG PO PRN ×2 (06:30→21:03)
[2018-01-01] MEDS: Spironolactone TAB* 25 MG PO SCH (09:49)
[2018-01-01] MEDS: amLODIPine TAB* 5 MG PO SCH (09:49)
[2018-01-01] MEDS: Vitamin THERAPEUTIC TAB PO SCH (09:49)
[2018-01-01] MEDS: Ferrous Sulfate TAB* 325 MG PO SCH (09:49)
[2018-01-01] MEDS: Divalproex DR TAB(*) 500 MG PO SCH ×2 (09:49→21:04)
[2018-01-01] MEDS: Aspirin EC TAB* 81 MG TAB.EC PO SCH (09:49)
[2018-01-01] MEDS: Metoprolol Succinate XL TAB* 50 MG PO SCH (09:51)
[2018-01-01] MEDS: Amiodarone TAB* 200 MG PO SCH (09:51)
[2018-01-01] MEDS: Ramipril CAP* 5 MG PO SCH (09:54)
[2018-01-01] MEDS: OLANzapine TAB* 5 MG PO PRN (22:46)
[2018-01-02 08:05] LABS: EGFR Non-African American 69.9 (>60)
[2018-01-02] MEDS: Ibuprofen TAB* 600 MG PO PRN ×2 (08:37→21:16)
[2018-01-02] MEDS: Acetaminophen TAB* 325 MG PO PRN ×2 (08:37→21:16)
[2018-01-02] MEDS: Vitamin THERAPEUTIC TAB PO SCH (08:38)
[2018-01-02] MEDS: Metoprolol Succinate XL TAB* 50 MG PO SCH (08:38)
[2018-01-02] MEDS: Divalproex DR TAB(*) 500 MG PO SCH (08:39)
[2018-01-02] MEDS: Amiodarone TAB* 200 MG PO SCH (08:39)
[2018-01-02] MEDS: Ferrous Sulfate TAB* 325 MG PO SCH (08:39)
[2018-01-02] MEDS: Aspirin EC TAB* 81 MG TAB.EC PO SCH (08:40)
[2018-01-02] MEDS: amLODIPine TAB* 5 MG PO SCH (08:40)
[2018-01-02] MEDS: Ramipril CAP* 5 MG PO SCH (08:40)
[2018-01-02] MEDS: Spironolactone TAB* 25 MG PO SCH (08:40)
[2018-01-02] MEDS: hydrOXYzine HCL TAB* 50 MG PO PRN ×2 (08:41→21:17)
--- NOTE | 2018-01-02 17:50 | PN ---
Subjective - Subjective Date of Service: 01/02/18 Service Type: [id number] Hosp care 15 min low complexity Subjective: Juan was singing loud in his room, happy songs. Says he is feeling very happy for no reason. Just happy. Lab reports indicate his serum Depakote level is 44 and needs adjustment. Denies psychosis, SI or HI. Objective - Appearance Appearance: Healthy Appearing Dysmorphic Features: No Hygiene: Mal-odorous Grooming: Disheveled - Behavior Psychomotor Activities: Abnormal-Increased - Attitude and Relatedness Attitude and Relatedness: Cooperative Eye Contact: Fair - Speech Quality: Pressured Latencies: Short Quantity: Terse - Mood Patient's Decription of Mood: "Great" - Affect Observed Affect: Euphoric Affect Consistent with: Euphoria - Thought Process Patient's Thought Process: Coherent, Filght of Ideas, Circumstantial, Over Inclusive Thought Content: No Passive Wish, No Suicidal Planning, No Homicidal Ideation, No Paranoid Ideation - Sensorium Experiencing Hallucinations: No, Sensorium is Clear Type of Hallucinations: Visual: No, Auditory: No, Command: No - Level of Consciousness Level of Consciousness: Alert Orientation: Yes Intact, Yes Orientated to Time, Yes Orientated to Place, Yes Orientated to Person - Impulse Control Impulse Control: Intact - Insight and Judgement Insight and Judgement: Poor - Group Participation Particating in Group Activities: No - Medication Management Medication Management Adherence: Yes Assessment - Assessment Merits Inpatient Hospitalization: For Stabilization, Pending Safe DC Plan Inpatient DSM-V Dx: F31.2 Clinical Impression: Still symptomatic and needs more time on inpatient unit. Plan - Plan Treatment Plan: Name: JUAN GARCIA Birthdate: 1950 [id number] Continued Medication Management: Continue Outpt Medication Medications: Current Medications Acetaminophen (Tylenol Tab*) 650 mg PO Q4H PRN PRN Reason: PAIN or TEMP > 101 F Last Admin: 01/02/18 08:37 Dose: 650 mg Al Hydrox/Mg Hydrox/Simethicone (Maalox Plus*) 30 ml PO Q4H PRN PRN Reason: INDIGESTION Amiodarone HCl (Cordarone Tab*) 200 mg PO DAILY [facility] Last Admin: 01/02/18 08:39 Dose: 200 mg Amlodipine Besylate (Norvasc Tab*) 5 mg PO DAILY [facility] Last Admin: 01/02/18 08:40 Dose: 5 mg Aspirin (Aspirin Ec Tab*) 81 mg PO DAILY [facility] Last Admin: 01/02/18 08:40 Dose: 81 mg Divalproex Sodium (Depakote Dr Tab(*)) 500 mg PO BID [facility] Last Admin: 01/02/18 08:39 Dose: 500 mg Ferrous Sulfate (Ferrous Sulfate Tab*) 325 mg PO DAILY [facility] Last Admin: 01/02/18 08:39 Dose: 325 mg Hydroxyzine HCl (Atarax Tab*) 50 mg PO Q6H PRN PRN Reason: ANXIETY Last Admin: 01/02/18 08:41 Dose: 50 mg Ibuprofen (Motrin Tab*) 600 mg PO Q8H PRN PRN Reason: PAIN Last Admin: 01/02/18 08:37 Dose: 600 mg Metoprolol Succinate (Toprol Xl Tab*) 50 mg PO DAILY [facility] Last Admin: 01/02/18 08:38 Dose: 50 mg Multivitamins (Theragran Tab*) 1 tab PO DAILY [facility] Last Admin: 01/02/18 08:38 Dose: 1 tab Olanzapine (Zyprexa Tab*) 5 mg PO BEDTIME PRN PRN Reason: SLEEP Last Admin: 01/01/18 22:46 Dose: 5 mg Ramipril (Altace Cap*) 5 mg PO DAILY [facility] Last Admin: 01/02/18 08:40 Dose: 5 mg Spironolactone (Aldactone Tab*) 25 mg PO DAILY [facility] Last Admin: 01/02/18 08:40 Dose: 25 mg - Discharge Plan Discharge Plan: Outpatient Follow Up Outpatient Program: [facility]
[2018-01-02] MEDS: Divalproex DR TAB(*) 250 MG PO SCH (21:15)
[2018-01-02] MEDS: OLANzapine TAB* 5 MG PO PRN (22:43)
[2018-01-03] MEDS: Ibuprofen TAB* 600 MG PO PRN ×2 (07:26→21:35)
[2018-01-03] MEDS: Ramipril CAP* 5 MG PO SCH (09:34)
[2018-01-03] MEDS: Metoprolol Succinate XL TAB* 50 MG PO SCH (09:34)
[2018-01-03] MEDS: Divalproex DR TAB(*) 250 MG PO SCH (09:34)
[2018-01-03] MEDS: Aspirin EC TAB* 81 MG TAB.EC PO SCH (09:35)
[2018-01-03] MEDS: amLODIPine TAB* 5 MG PO SCH (09:35)
[2018-01-03] MEDS: Vitamin THERAPEUTIC TAB PO SCH (09:35)
[2018-01-03] MEDS: Spironolactone TAB* 25 MG PO SCH (09:35)
[2018-01-03] MEDS: Amiodarone TAB* 200 MG PO SCH (09:35)
[2018-01-03] MEDS: Ferrous Sulfate TAB* 325 MG PO SCH (09:36)
--- NOTE | 2018-01-03 20:30 | PN ---
Subjective - Subjective Date of Service: 01/03/18 Service Type: [id number] Hosp care 15 min low complexity Subjective: Juan spends about 20 minutes talking about himself and explaining that he has been gifted with a wonderful and a fantastic work ethic. He remains grandiose and his valproic acid level is sub-therapeutic. He has no insight into requiring self-care so that he doesn't need to return to the hospital. Objective - Appearance Appearance: Well Developed/Nourished Dysmorphic Features: No Hygiene: Normal Grooming: Well Kept - Behavior Psychomotor Activities: Normal Exhibits Abnormal Movement: No - Attitude and Relatedness Attitude and Relatedness: Cooperative Eye Contact: Good - Speech Quality: Unpressured Latencies: Normal Quantity: Copious - Mood Patient's Decription of Mood: "Great" - Affect Observed Affect: Euphoric Affect Consistent with: Euphoria - Thought Process Patient's Thought Process: Coherent Thought Content: No Passive Wish, No Suicidal Planning, No Homicidal Ideation, No Paranoid Ideation - Sensorium Experiencing Hallucinations: No, Sensorium is Clear Type of Hallucinations: Visual: No, Auditory: No, Command: No - Level of Consciousness Level of Consciousness: Alert Orientation: Yes Intact, Yes Orientated to Time, Yes Orientated to Place, Yes Orientated to Person - Impulse Control Impulse Control: Tenuous - Insight and Judgement Insight and Judgement: Impaired - Group Participation Particating in Group Activities: Yes - Medication Management Medication Management Adherence: Yes - Additional Observations Comments: Depakote is increased to 1500 QHS and Juan states he will be compliant with it. It is unclear whether this will remain true in the outpatient world. Nevertheless, Juan is improving here and his blood levels should be therapeutic in the coming days. Assessment - Assessment Merits Inpatient Hospitalization: For Immediate Safety, For Stabilization Inpatient DSM-V Dx: F31.2 Clinical Impression: Juan remains manic, although he is returning to a more euthymic presentation. Plan - Plan Treatment Plan: Name: JUAN GARCIA Birthdate: 1950 [id number] Medications: Current Medications Acetaminophen (Tylenol Tab*) 650 mg PO Q4H PRN PRN Reason: PAIN or TEMP > 101 F Last Admin: 01/02/18 21:16 Dose: 650 mg Al Hydrox/Mg Hydrox/Simethicone (Maalox Plus*) 30 ml PO Q4H PRN PRN Reason: INDIGESTION Amiodarone HCl (Cordarone Tab*) 200 mg PO DAILY [facility] Last Admin: 01/03/18 09:35 Dose: 200 mg Amlodipine Besylate (Norvasc Tab*) 5 mg PO DAILY [facility] Last Admin: 01/03/18 09:35 Dose: 5 mg Aspirin (Aspirin Ec Tab*) 81 mg PO DAILY [facility] Last Admin: 01/03/18 09:35 Dose: 81 mg Divalproex Sodium (Depakote Er Tab(*)) 1,500 mg PO BEDTIME [facility] Ferrous Sulfate (Ferrous Sulfate Tab*) 325 mg PO DAILY [facility] Last Admin: 01/03/18 09:36 Dose: 325 mg Hydroxyzine HCl (Atarax Tab*) 50 mg PO Q6H PRN PRN Reason: ANXIETY Last Admin: 01/02/18 21:17 Dose: 50 mg Ibuprofen (Motrin Tab*) 600 mg PO Q8H PRN PRN Reason: PAIN Last Admin: 01/03/18 07:26 Dose: 600 mg Metoprolol Succinate (Toprol Xl Tab*) 50 mg PO DAILY [facility] Last Admin: 01/03/18 09:34 Dose: 50 mg Multivitamins (Theragran Tab*) 1 tab PO DAILY [facility] Last Admin: 01/03/18 09:35 Dose: 1 tab Olanzapine (Zyprexa Tab*) 5 mg PO BEDTIME PRN PRN Reason: SLEEP Last Admin: 01/02/18 22:43 Dose: 5 mg Ramipril (Altace Cap*) 5 mg PO DAILY [facility] Last Admin: 01/03/18 09:34 Dose: 5 mg Spironolactone (Aldactone Tab*) 25 mg PO DAILY [facility] Last Admin: 01/03/18 09:35 Dose: 25 mg - Discharge Plan Additional Comments: Juan will be discharged on his hospital medications (current) and should continue to follow up at the clinic.
[2018-01-03] MEDS ORDERED: Divalproex ER TAB(*) 500 MG PO SCH (21:00)
[2018-01-03] MEDS: Acetaminophen TAB* 325 MG PO PRN (21:35)
[2018-01-03] MEDS: hydrOXYzine HCL TAB* 50 MG PO PRN (21:36)
[2018-01-04 07:54] VITALS: BP 139/99
[2018-01-04] MEDS: Amiodarone TAB* 200 MG PO SCH (09:06)
[2018-01-04] MEDS: amLODIPine TAB* 5 MG PO SCH (09:06)
[2018-01-04] MEDS: Metoprolol Succinate XL TAB* 50 MG PO SCH (09:06)
[2018-01-04] MEDS: Vitamin THERAPEUTIC TAB PO SCH (09:06)
[2018-01-04] MEDS: Ferrous Sulfate TAB* 325 MG PO SCH (09:06)
[2018-01-04] MEDS: Spironolactone TAB* 25 MG PO SCH (09:07)
[2018-01-04] MEDS: Ramipril CAP* 5 MG PO SCH (09:07)
[2018-01-04] MEDS: Aspirin EC TAB* 81 MG TAB.EC PO SCH (09:07)
[2018-01-04] MEDS: Ibuprofen TAB* 600 MG PO PRN (09:13)
[2018-01-04] MEDS: Acetaminophen TAB* 325 MG PO PRN (09:14)
--- NOTE | 2018-01-06 02:53 | DS ---
CC: [facility] * DISCHARGE SUMMARY: DATE OF ADMISSION: 12/29/17 DATE OF DISCHARGE: 01/04/18 PROVIDER: Shira Paz NP, Psychiatry SUPERVISING PHYSICIAN: Graham Vickers MD * (DICTATED BY SHIRA PAZ NP) DIAGNOSES: [place] I: Bipolar I disorder, current episode manic. [place] II: Deferred. CONDITION AT THE TIME OF DISCHARGE: Juan is improved. He is psychiatrically clear. He is stable. Juan participated in groups and was social with peers. His is agreeable to discharge. He did well here psychiatrically. He tolerated an increase and restart of medications. He will attend [facility]. MENTAL STATUS EXAMINATION AT THE TIME OF DISCHARGE: Juan is calm and cooperative and makes good eye contact. He is alert and oriented x3. His grooming is good. His speech pace is normal. His thought processes are logical. He is not psychotic, not delusional. Denies AH, VH, SI, and HI. His insight is fair. His judgment is good. He is willing to follow up. DISCHARGE INSTRUCTIONS TO THE PATIENT: A. Medications: All medications including those that we prescribed for his physical body include: 1. Amiodarone 200 mg daily. 2. Amlodipine 5 mg daily. 3. Aspirin 81 mg daily. 4. Depakote 1500 mg at bedtime. 5. Ferrous sulfate 325 daily. 6. Hydroxyzine 50 mg q.6 hours p.r.n. anxiety. 7. Ibuprofen 600 mg q.8 hours p.r.n. pain. 8. Metoprolol XL 50 mg p.o. daily. 9. Olanzapine 5 mg bedtime for sleep. 10. Ramipril 5 mg daily. 11. Spironolactone 25 mg daily. B. Diet: Regular. C. Activities: As tolerated. Juan is a nonsmoker and there are no studies pending at the time of discharge. D. Followup care: Appointments are with his providers at [facility]. E. Substance abuse followup: Not indicated. HOSPITAL COURSE: Part A: Chief complaint: My uncle, Wilfredo, 6 weeks ago, it is severe intense emotion." The patient is a 67-year-old [employer]ab[employer]ism man, who is to a woman named Michelle. He has a history of bipolar disorder, usually displaying bari, who arrives by ambulance, but not by 9.41 or 9.45 after finding that he can no longer manage and he can no longer sleep. The story is difficult to come by as Juan is talking almost nonstop about [place] and the [place] and his uncles and his father and a number of languages they speak etc. He finds that the stressor of his uncle, Wilfredo, dying 6 weeks ago, who was his last uncle on his dad's side of the family. It is a significant stressor that he cannot tolerate or manage adequately without help from outside people. He is hyperverbal. He is distractible. He is grandiose. There are flight of ideas. He cannot keep to the 1 topic. His activity has increased. He is not sleeping. I did not elicit any ideas of high- risk behaviors, but he does have goal-directed behaviors as he is cleaning the house and says it is so important for him to clean that he cannot go to sleep for 3 days in a row. It should be noted that at last admission, which was about a month ago, Juan came in with taking the same Depakote dosage, which was 500 mg at bedtime and had a therapeutic level of 0.9, although we wanted to increase the dose, it was not possible as it would have become potentially toxic. The Zyprexa dosage was 5 mg , but Juan rejected the idea so strongly that we reduced it to 2.5 with the agreement that he and his would talk about when it was time to take it clearly that has not happened. Part B: Psychiatric treatment was rendered. Juan was admitted to the adult behavioral unit and placed on 15-minute checks for safety. Juan did well on the unit and went to groups. He interacted with peers well. We did increase his Depakote to 1500 mg at bedtime and changed the Zyprexa 5 mg at bedtime to schedule rather than p.r.n. Juan did sleep. He slept better. He states that he nods off at times and in the outpatient world, he has requested Provigil to help with this. At this time, we are not willing to give that and that was in the discussion at this admission. His valproic acid level on 01/02/18 was only 32, which is lower than we wanted to be, thus the dose was increased to 1500 and it will drift upward to a therapeutic range. On 12/29/17, his hemoglobin A1c was 5.5%. His lipids also on 12/29/17 included triglycerides 45, cholesterol 219, LDL cholesterol 130, HDL cholesterol 79.7. We did not meet with Michelle at this time as we met with her quite recently on Juan's previous admission. No consults were entered. Juan is improved. He is still hypomanic , but he is improved enough to go out into the world and take care of himself and sleep appropriately. SHIRA PAZ, TECHNOLOGY PROJECT MANAGER [id number]/[facility] #: [id number] JANEY
== END 2018-01-04 13:13 | disposition home or self-care (01) | DRG 885 ==
LOC: ED 12:21 → BSU 18:04
PROVIDERS: ADMIT Psychiatry & Neurology Psychiatry; ATTEND Psychiatry & Neurology Psychiatry
PROC: GZHZZZZ Group Psychotherapy (ICD-10-PCS; principal; 2017-12-30)
DX: F31.2 Bipolar disorder, current episode manic severe with psychotic features (principal); I42.9 Cardiomyopathy, unspecified; Q87.40 Marfan syndrome, unspecified; I48.91 Unspecified atrial fibrillation; I11.0 Hypertensive heart disease with heart failure; I50.9 Heart failure, unspecified; I25.10 Atherosclerotic heart disease of native coronary artery without angina pectoris; M19.90 Unspecified osteoarthritis, unspecified site; H35.30 Unspecified macular degeneration; F90.9 Attention-deficit hyperactivity disorder, unspecified type; F40.01 Agoraphobia with panic disorder; M41.9 Scoliosis, unspecified; Z86.19 Personal history of other infectious and parasitic diseases; Z72.89 Other problems related to lifestyle; Z82.49 Family history of ischemic heart disease and other diseases of the circulatory system; Q24.9 Congenital malformation of heart, unspecified; Z95.5 Presence of coronary angioplasty implant and graft; Z87.891 Personal history of nicotine dependence
CPT/HCPCS: 36415; 80053; 80061; 80164; 80307; 80320; 80329; 81003; 83036; 84443; 85025; 90853; 99222; 99231; 99238; 99283; A9270-GY; G0480

== ENCOUNTER 2018-01-05 18:02 | Emergency (ER) | payer MEDICARE ==
--- NOTE | 2018-01-05 19:59 | ED ---
Psychiatric Complaint - HPI Summary HPI Summary: This is moe Zepeda documenting for attending Dr. Lisette Martinez This patient is a 67 year old M [facility] accompanied by his with a chief complaint of bari since discharge from [facility] 01/04/18. Pt endorses taking Benadryl Zyprexa to alleviate insomnia but they did not help. Pt was in [facility] for 4 days for bari. Pt endorses collapsed ankle. PMHx bipolar bari. Pt endorses obsessively scrubbing the floor, obsessive cleaning in general. He endorses insomnia since discharge from hospital. Pt denies HI and SI. - History Of Current Complaint Chief Complaint: EDGeneral Time Seen by Provider: 01/05/18 19:33 Hx Obtained From: Patient Onset/Duration: Lasting Days, Still Present Timing: Constant Severity Initially: Moderate Severity Currently: Moderate Character: Manic, Anxious Alleviating Factor(s): Nothing Associated Signs And Symptoms: Positive: Sleep Disturbance Related History: Positive For: Prior Psychiatric Issues Has Suicidal: Denies: Thoughts Has Homicidal: Denies: Thoughts - Allergies/Home Medications Allergies/Adverse Reactions: Allergies Allergy/AdvReac Type Severity Reaction Status Date / Time No Known Allergies Allergy Verified 12/15/17 19:05 PMH/Surg Hx/FS Hx/Imm Hx Endocrine/Hematology History: Denies: Hx Diabetes Cardiovascular History: Reports: Hx Atrial Fibrillation, Hx Congenital Heart Disease - murmur, Hx Congestive Heart Failure, Hx Coronary Artery Disease - Stent x2 2008, Hx Hypercholesterolemia, Hx Hypertension, Other Cardiovascular Problems/Disorders - cardiomyopathy Denies: Hx Angina - denies, Hx Myocardial Infarction, Hx Pacemaker/ICD, Hx Valvular Heart Disease Respiratory History: Reports: Hx Pulmonary Embolism - possible, Other Respiratory Problems/Disorders - SOB D/T WEAKNESS Denies: Hx Asthma, Hx Chronic Obstructive Pulmonary Disease (COPD), Hx Pneumonia GI History: Reports: Hx Hiatal Hernia, Other GI Disorders - abdominal hernia History: Denies: Hx Benign Prostatic Hyperplasia - maybe, Hx Dialysis Musculoskeletal History: Reports: Hx Arthritis, Hx Back Problems, Other Musculoskeletal History - Marfan's Syndrome Sensory History: Reports: Hx Contacts or Glasses, Hx Macular Degeneration - lense implants x2, Hx Vision Problem - Pt states he has "blurry vision" Denies: Hx Hearing Aid Opthamlomology History: Reports: Hx Contacts or Glasses, Hx Macular Degeneration - lense implants x2, Hx Vision Problem - Pt states he has "blurry vision" Neurological History: Reports: Hx Headaches, Hx Nerve Disease, Other Neuro Impairments/Disorders - MARFAN'S SYNDROME Denies: Hx Dementia, Hx Seizures Psychiatric History: Reports: Hx Anxiety, Hx Attention Deficit Hyperactivity Disorder, Hx Depression, Hx Panic Disorder - agorophobia, Hx Inpatient Treatment , Hx Community Mental Health Tx, Hx Bipolar Disorder, Hx Substance Abuse Denies: Hx Eating Disorder, Hx of Violent Episodes Against Others - Surgical History Surgery Procedure, Year, and Place: left knee surgery, left wrist, abdominal hernia x2, cardiac cath 2009ish. dates unknown. STENTS X2 2007 Hx Anesthesia Reactions: No Infectious Disease History: No Infectious Disease History: Reports: Hx Shingles Denies: Hx Clostridium Difficile, Hx Hepatitis, Hx Human Immunodeficiency Virus (HIV), Hx of Known/Suspected MRSA, Hx Tuberculosis, History Other Infectious Disease, Traveled Outside the [place] in Last 30 Days - Family History Known Family History: Positive: Cardiac Disease - Social History Alcohol Use: Rare Alcohol Amount: 2x month Hx Substance Use: No Substance Use Type: Reports: None Substance Use Comment - Amount & Last Used: Pt states that he does use recreational substances Hx Tobacco Use: Yes Smoking Status (MU): Former Smoker Type: Cigarettes Amount Used/How Often: 5-7/day Length of Time of Smoking/Using Tobacco: 16 years total Have You Smoked in the Last Year: No Review of Systems Negative: Fever Positive: Arthralgia - right ankle, Myalgia - right ankle, Decreased ROM - right ankle, Edema - right ankle Positive: Anxious, Other - endorses bari, denies SI, HI All Other Systems Reviewed And Are Negative: Yes Physical Exam - Summary Physical Exam Summary: VITAL SIGNS: Reviewed. GENERAL: Patient is a well-developed and nourished male who is lying comfortable in the stretcher. Patient is not in any acute respiratory distress. HEAD AND FACE: No signs of trauma. No ecchymosis, hematomas or skull depressions. No sinus tenderness. EYES: PERRLA, EOMI x 2, No injected conjunctiva, no nystagmus. EARS: Hearing grossly intact. Ear canals and tympanic membranes are within normal limits. MOUTH: Oropharynx within normal limits. NECK: Supple, trachea is midline, no adenopathy, no JVD, no carotid bruit, no c- spine tenderness, neck with full ROM. CHEST: Symmetric, no tenderness at palpation LUNGS: Clear to auscultation bilaterally. No wheezing or crackles. CVS: Regular rate and rhythm, S1 and S2 present, no murmurs or gallops appreciated. ABDOMEN: Soft, non-tender. No signs of distention. No rebound no guarding, and no masses palpated. Bowel sounds are normal. EXTREMITIES: FROM in all major joints, no edema, no cyanosis or clubbing. NEURO: Alert and oriented x 3. No acute neurological deficits. Speech is normal and follows commands. SKIN: Dry and warm PSYCH: obsessive: cleaning house, toothbrush to clean floor, hasnt slept. Denies HI, SI Triage Information Reviewed: Yes Vital Signs On Initial Exam: Initial Vitals Temp Pulse Resp BP Pulse Ox 98 F 67 16 139/79 91 01/05/18 18:04 01/05/18 18:04 01/05/18 18:04 01/05/18 18:04 01/05/18 18:04 Vital Signs Reviewed: Yes Diagnostics - Vital Signs Vital Signs Temp Pulse Resp BP Pulse Ox 01/05/18 18:04 98 F 67 16 139/79 91 - Laboratory Result Diagrams: 01/05/18 20:12 01/05/18 20:12 Lab Statement: Any lab studies that have been ordered have been reviewed, and results considered in the medical decision making process. Course/Dx - Course Course Of Treatment: A 67-year-old M presents to the ED with a CC of bari since discharge from [facility] 01/04/18. (+) insomnia, collaped ankle, obsessive cleaning. (-) SI, HI. PMHx Bipolar bari. In the ED course, pt was given lorazepam. Pt moved to flex at 2029. - Differential Dx/Clinical Impression Provider Diagnosis: Bipolar affective, manic - Physician Notifications Discussed Care Of Patient With: Philomena Gibson Time Discussed With Above Provider: 22:35 Instructed by Provider To: Other - Pt will be held until tomorrow morning to be reevaluated Discharge - Sign-Out/Discharge Documenting (check all that apply): Sign-Out Patient Signing out patient TO: Raymond Spivey - lucas, dispo - Discharge Plan Referrals: David Putnam MD [Primary Care Provider] -
[2018-01-05] MEDS ORDERED: LORazepam TAB(*) 1 MG PO ONE (20:16)
[2018-01-05 20:20] LABS: ABS Basophils 0.1 10^3/ul (0-0.2); ABS Eosinophils 0.1 10^3/ul (0-0.6); ABS Lymphocytes 1.7 10^3/ul (1.0-4.8); ABS Monocytes 0.6 10^3/ul (0-0.8); ABS Neutrophils 4.5 10^3/ul (1.5-7.7); ABS Nucleated RBC 0 10^3/ul; Eosinophil % 1.3 % (0-6); Hematocrit 35 % (42-52); Hemoglobin 11.9 g/dl (14.0-18.0); Lymphocyte % 24.9 % (25-47); Mean Corpuscular HGB Conc 34 g/dl (31-36); Mean Corpuscular Hemoglobin 32 pg (27-31); Mean Corpuscular Volume 94 fL (80-94); Nucleated Red Blood Cells % 0.1; Platelet Count 223 10^3/ul (150-450); Red Blood Count 3.68 10^6/ul (4.00-5.40); Red Cell Distribution Width 14 % (10.5-15); White Blood Count 6.9 10^3/ul (3.5-10.8)
[2018-01-05 21:02] LABS: EGFR Non-African American 41.4 (>60)
[2018-01-05 22:06] LABS: Urine Appearance Clear; Urine Blood Negative (Negative); Urine Color Yellow; Urine Ketones Negative (Negative); Urine Protein Negative (Negative); Urine Specific Gravity 1.021 (1.010-1.030); Urine Urobilinogen Negative (Negative)
[2018-01-05] MEDS ORDERED: OLANzapine TAB* 5 MG PO ONE (23:22)
[2018-01-05] MEDS ORDERED: Divalproex ER TAB(*) 500 MG PO ONE (23:22)
--- NOTE | 2018-01-06 07:20 | ED ---
Progress - Progress Note Progress Note: Pt signed out from Dr. YEE pending MHE. This is scribe Ed Alana documenting for attending Raymond Spivey MD. - Consult/PCP Time Called: 20:45 Course/Dx - Course Course Of Treatment: A 67-year-old M presents to the ED with a CC of bari since discharge from [facility] 01/04/18. (+) insomnia, collaped ankle, obsessive cleaning. (-) SI, HI. PMHx Bipolar bari. In the ED course, pt was given lorazepam. Pt moved to flex at 2029. - Diagnoses Provider Diagnoses: Bipolar affective, manic - Provider Notifications Time Discussed With Above Provider: 22:35 Instructed by Provider To: Other - Pt will be held until tomorrow morning to be reevaluated Discharge - Discharge Plan Referrals: David Putnam MD [Primary Care Provider] -
[2018-01-06] MEDS ORDERED: Ramipril CAP* 5 MG PO ONE (07:47)
[2018-01-06] MEDS ORDERED: Spironolactone TAB* 25 MG PO ONE (07:47)
[2018-01-06] MEDS ORDERED: Amiodarone TAB* 200 MG PO ONE (07:47)
[2018-01-06] MEDS ORDERED: Ibuprofen TAB* 600 MG PO ONE (07:47)
[2018-01-06] MEDS ORDERED: amLODIPine TAB* 5 MG PO ONE (07:47)
[2018-01-06] MEDS ORDERED: Metoprolol Succinate XL TAB* 50 MG PO ONE (07:51)
[2018-01-06] MEDS ORDERED: Aspirin EC TAB* 81 MG TAB.EC PO ONE (07:51)
--- NOTE | 2018-01-06 07:59 | PN ---
ED Flex Patient Progress Note Date of Service: 01/05/18 Subjective: This is a 67 year-old M who is pending admission to [facility] / transfer to another psychiatric facility / discharge to home / or being observed secondary to bari. Pt. examined in room F2. He is resting comfortably. Very talkative. He would like to call his . He offers no complaints. Requesting morning medications. Objective: Vitals: Most recent vital signs documented below. General NAD. Laboratory: Current laboratory results documented below. Assessment: Pending MHE. Plan: Pending psychiatric or medical consultation to observe / transfer / admit / discharge will follow up daily . Morning medications ordered. Vital Signs Temp Pulse Resp BP Pulse Ox 98.4 F 63 16 153/91 97 01/05/18 21:45 01/05/18 21:45 01/05/18 23:35 01/05/18 21:45 01/05/18 21:45 Lab Results - Entire Visit 01/05/18 01/05/18 01/05/18 21:40 21:40 20:12 WBC RBC Hgb Hct MCV MCH MCHC RDW Plt Count MPV Neut % (Auto) Lymph % (Auto) Bosque % (Auto) Eos % (Auto) Baso % (Auto) Absolute Neuts (auto) Absolute Lymphs (auto) Absolute Monos (auto) Absolute Eos (auto) Absolute Basos (auto) Absolute Nucleated RBC Nucleated RBC % Sodium Potassium Chloride Carbon Dioxide Anion Gap BUN Creatinine Est GFR ( Amer) Est GFR (Non-Af Amer) BUN/Creatinine Ratio Glucose Calcium Total Bilirubin AST ALT Alkaline Phosphatase Total Protein Albumin Globulin Albumin/Globulin Ratio TSH Urine Color Yellow Urine Appearance Clear Urine pH 5.0 Ur Specific [place] 1.021 Urine Protein Negative Urine Ketones Negative Urine Blood Negative Urine Nitrate Negative Urine Bilirubin Negative Urine Urobilinogen Negative Ur Leukocyte Esterase Negative Urine Glucose Negative Salicylates Urine Opiates Screen None detected Acetaminophen Ur Barbiturates Screen None detected Valproic Acid 44.0 L Ur Phencyclidine Scrn None detected Ur Amphetamines Screen Presumptive positive A U Benzodiazepines Scrn None detected Urine Cocaine Screen None detected U Cannabinoids Screen Presumptive positive A Serum Alcohol 01/05/18 01/05/18 20:12 20:12 WBC 6.9 RBC 3.68 L Hgb 11.9 L Hct 35 L MCV 94 MCH 32 H MCHC 34 RDW 14 Plt Count 223 MPV 7.0 L Neut % (Auto) 64.3 Lymph % (Auto) 24.9 L Bosque % (Auto) 8.2 H Eos % (Auto) 1.3 Baso % (Auto) 1.3 Absolute Neuts (auto) 4.5 Absolute Lymphs (auto) 1.7 Absolute Monos (auto) 0.6 Absolute Eos (auto) 0.1 Absolute Basos (auto) 0.1 Absolute Nucleated RBC 0 Nucleated RBC % 0.1 Sodium 140 Potassium 4.3 Chloride 104 Carbon Dioxide 27 Anion Gap 9 BUN 40 H Creatinine 1.67 H Est GFR ( Amer) 50.1 Est GFR (Non-Af Amer) 41.4 BUN/Creatinine Ratio 24.0 H Glucose 130 H Calcium 9.3 Total Bilirubin 0.30 AST 21 ALT 13 Alkaline Phosphatase 79 Total Protein 6.9 Albumin 4.1 Globulin 2.8 Albumin/Globulin Ratio 1.5 TSH 1.98 Urine Color Urine Appearance Urine pH Ur Specific [place] Urine Protein Urine Ketones Urine Blood Urine Nitrate Urine Bilirubin Urine Urobilinogen Ur Leukocyte Esterase Urine Glucose Salicylates < 2.50 Urine Opiates Screen Acetaminophen < 15 Ur Barbiturates Screen Valproic Acid Cancelled Ur Phencyclidine Scrn Ur Amphetamines Screen U Benzodiazepines Scrn Urine Cocaine Screen U Cannabinoids Screen Serum Alcohol < 10
--- NOTE | 2018-01-06 11:03 | PN ---
Subjective - Subjective Date of Service: 01/06/18 Service Type: [id number] Hosp care 15 min low complexity Subjective: Juan is tired. His labs come back positive for amphetamines (he acknowledges taking, "Maybe 7 mg" of Adderall because it helps him get going and helps with his pain) and cannabinoids. He stated he hasn't slept in over a day because once again he had to clean the house. Also, his isn't sleeping well and is jerking awake so Juan states he cannot sleep at home. In the Flex, he is sleeping in bed with the lights off. He is sleeping lightly and awakens when I come in. He is easy to talk to and pleasant and acknowledges that he needs to sleep. Pending discharge, he will be allowed to sleep. He is encouraged to not take Adderall any longer. He disagrees and says it helps him get up and out and that it helps with his pain. He is agreeable to discharge, is eager to see his , but also takes the opportunity to explain why she is difficult to get along with right now since she is reducing her benzodiazepine intake. Objective - Appearance Appearance: Well Developed/Nourished Dysmorphic Features: No Hygiene: Normal Grooming: Disheveled - Behavior Psychomotor Activities: Normal Exhibits Abnormal Movement: No - Attitude and Relatedness Attitude and Relatedness: Cooperative Eye Contact: Good - Speech Quality: Unpressured Latencies: Normal Quantity: Copious - Mood Patient's Decription of Mood: "Great" - Affect Observed Affect: Expansive Affect Consistent with: Euphoria - Thought Process Patient's Thought Process: Coherent Thought Content: No Passive Wish, No Suicidal Planning, No Homicidal Ideation, No Paranoid Ideation - Sensorium Experiencing Hallucinations: No, Sensorium is Clear Type of Hallucinations: Visual: No, Auditory: No, Command: No - Level of Consciousness Level of Consciousness: Alert Orientation: Yes Intact, Yes Orientated to Time, Yes Orientated to Place, Yes Orientated to Person - Impulse Control Impulse Control: Tenuous - Insight and Judgement Insight and Judgement: Impaired - Medication Management Medication Management Adherence: Partial Plan - Plan Treatment Plan: Name: JUAN GARCIA Birthdate: 1950 [id number] Discharge home.
[2018-01-06 13:58] VITALS: BP 127/89
== END 2018-01-06 13:16 | disposition home or self-care (01) ==
LOC: ED 18:02
DX: F30.8 Other manic episodes (principal); G47.00 Insomnia, unspecified; M25.571 Pain in right ankle and joints of right foot; R60.0 Localized edema; Z87.891 Personal history of nicotine dependence
CPT/HCPCS: 36415; 80053; 80164; 80307; 80320; 80329; 81003; 84443; 85025; 99283; A9270-GY; G0480

== ENCOUNTER 2018-04-16 08:03 | Inpatient (IN) | payer MEDICARE ==
--- NOTE | 2018-04-16 08:20 | ED ---
Shortness of Breath - HPI Summary HPI Summary: This patient is a 67 year old M [facility] [place] by family with a chief complaint of SOB that began 3 days ago. Symptoms aggravated by movement. Symptoms alleviated by nothing. Patient reports fatigue and dizziness. 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 - History of Current Complaint Time Seen by Provider: 04/16/18 08:06 Hx Obtained From: Patient Onset/Duration: Sudden Onset, Lasting Days, Still Present Timing: Constant Current Severity: Moderate Dyspnea At: Rest Aggrevating Factors: Movement Alleviating Factors: Nothing Associated Signs & Symptoms: Dizzy - Allergy/Home Medications Allergies/Adverse Reactions: Allergies Allergy/AdvReac Type Severity Reaction Status Date / Time No Known Allergies Allergy Verified 04/16/18 08:15 PMH/Surg Hx/FS Hx/Imm Hx Previously Healthy: No Endocrine/Hematology History: Denies: Hx Diabetes Cardiovascular History: Reports: Hx Atrial Fibrillation, Hx Congenital Heart Disease - murmur, Hx Congestive Heart Failure, Hx Coronary Artery Disease - Stent x2 2007, Hx Hypercholesterolemia, Hx Hypertension, Other Cardiovascular Problems/Disorders - cardiomyopathy. Marfan's syndrome Denies: Hx Angina - denies, Hx Myocardial Infarction, Hx Pacemaker/ICD, Hx Valvular Heart Disease Respiratory History: Reports: Hx Pulmonary Embolism - possible, Other Respiratory Problems/Disorders - SOB D/T WEAKNESS Denies: Hx Asthma, Hx Chronic Obstructive Pulmonary Disease (COPD), Hx Pneumonia GI History: Reports: Hx Hiatal Hernia, Other GI Disorders - abdominal hernia History: Denies: Hx Benign Prostatic Hyperplasia - maybe, Hx Dialysis Musculoskeletal History: Reports: Hx Arthritis, Hx Back Problems, Other Musculoskeletal History - Marfan's Syndrome Sensory History: Reports: Hx Contacts or Glasses, Hx Macular Degeneration - lense implants x2, Hx Vision Problem - Pt states he has "blurry vision" Denies: Hx Hearing Aid Opthamlomology History: Reports: Hx Contacts or Glasses, Hx Macular Degeneration - lense implants x2, Hx Vision Problem - Pt states he has "blurry vision" Neurological History: Reports: Hx Headaches, Hx Nerve Disease, Other Neuro Impairments/Disorders - MARFAN'S SYNDROME Denies: Hx Dementia, Hx Seizures Psychiatric History: Reports: Hx Anxiety, Hx Attention Deficit Hyperactivity Disorder, Hx Depression, Hx Panic Disorder - agorophobia, Hx Inpatient Treatment , Hx Community Mental Health Tx, Hx Bipolar Disorder, Hx Substance Abuse Denies: Hx Eating Disorder, Hx of Violent Episodes Against Others - Surgical History Surgery Procedure, Year, and Place: left knee surgery, left wrist, abdominal hernia x2, cardiac cath 2009ish. dates unknown. Watchman procedure 2017. STENTS X2 2008 Hx Anesthesia Reactions: No Infectious Disease History: Reports: Hx Shingles Denies: Hx Clostridium Difficile, Hx Hepatitis, Hx Human Immunodeficiency Virus (HIV), Hx of Known/Suspected MRSA, Hx Tuberculosis, History Other Infectious Disease - Family History Known Family History: Positive: Cardiac Disease - Social History Occupation: Disabled Lives: With Family Alcohol Use: Rare Alcohol Amount: 2x month Hx Substance Use: No Substance Use Type: Reports: None Substance Use Comment - Amount & Last Used: Pt states that he does use recreational substances Hx Tobacco Use: Yes Smoking Status (MU): Former Smoker Type: Cigarettes Amount Used/How Often: 5-7/day Length of Time of Smoking/Using Tobacco: 16 years total Have You Smoked in the Last Year: No Review of Systems Positive: Fatigue Positive: Shortness Of Breath Neurological: Other - Positive dizziness All Other Systems Reviewed And Are Negative: Yes Physical Exam - Summary Physical Exam Summary: Appearance: Well appearing, no pain distress Skin: warm, dry, reflects adequate perfusion. Surgical scar at the lumbar. Head/face: normal Eyes: EOMI, VENITA ENT: mucous membranes moist Neck: supple, non-tender Respiratory: breath sounds present. Fine crackles at the right base. Cardiovascular: pulses symmetrical. Tachycardia. Irregularly irregular rhythm. Abdomen: non-tender, soft Bowel Sounds: present Musculoskeletal: normal, strength/ROM intact Neuro: normal, sensory motor intact, A&Ox3 Triage Information Reviewed: Yes Vital Signs Reviewed: Yes Diagnostics - Laboratory Result Diagrams: 04/16/18 08:34 04/16/18 08:34 Lab Statement: Any lab studies that have been ordered have been reviewed, and results considered in the medical decision making process. - Radiology CXR Radiology Interpretation Completed By: Radiologist Summary of Radiographic Findings: CXR reveals, per radiologist, in the correct clinical setting chest x-ray findings could be compatible with vascular congestion that was not readily apparent on the May 26, 2017 chest x-ray. ED physician has reviewed this radiology report. - EKG 0828 Cardiac Rate: Other Rate - Rapid EKG Rhythm: Atrial Fibrillation - [address] Segment: Non-Specific Summary of EKG Findings: An EKG taken at 0828 reveals rapid AFib at 107 BPM with nml axis and nonspecific ST. Re-Evaluation - Re-Evaluation First Eval Re-Evaluation Time: 08:50 Change: Improved Comment: Patient stays he is feeling much improved with a HR in the range of 90- 100 right now Course/Dx - Course Course Of Treatment: Patient with a history of watchman procedure and Marfan syndrome presents with shortness of breath and concern for atrial fibrillation. He is in rapid A. fib. This was rate controlled with diltiazem bolus and drip. He was also given Lovenox 1 mg/kg. He was feeling improved with rate control and was admitted to the hospitalist service in improved condition. - Diagnoses Provider Diagnoses: Rapid atrial fibrillation, Congestive heart failure - Physician Notifications Discussed Care of Patient With: Jame Chiu Time Discussed With Above Provider: 08:25 Instructed by Provider To: Other - Consult with Dr. Chiu (hospitalist) at 0825. He agrees to admit patient for further evaluation. - Critical Care Time Critical Care Time: 30-74 min - CCT is EXCLUSIVE of separately billable procedures Discharge - Sign-Out/Discharge Documenting (check all that apply): Patient Departure - Admit to [facility] [place] - Discharge Plan Condition: Guarded Disposition: ADMITTED TO [facility] - Billing Disposition and Condition Condition: GUARDED Disposition: Admitted to [facility] - Attestation Statements Document Initiated by Scribe: Yes Documenting Scribe: Carmen Lebron Provider For Whom Scribe is Documenting (Include Credential): Dr. Billy Riojas MD Scribe Attestation: I, Carmen Lebron, scribed for Dr. Billy Riojas MD on 04/16/18 at 1216. Scribe Documentation Reviewed: Yes Provider Attestation: The documentation as recorded by the Carmen rosa accurately reflects the service I personally performed and the decisions made by me, Dr. Billy Riojas MD
[2018-04-16] MEDS ORDERED: NS 0.9% 1000 ML* 1,000 ML IV ONE (08:25)
[2018-04-16] MEDS ORDERED: Enoxaparin(*) 100 MG/ML SYR SUBCUT ONE (08:26)
[2018-04-16] MEDS ORDERED: Diltiazem IV* 5 MG/ML 5 ML VIAL (for loading dose/IV Push) (25 MG) IV SLOW PU ONE (08:26)
[2018-04-16] MEDS ORDERED: Aspirin 81 mg CHEW TAB* 81 MG TAB.CHEW PO ONE (08:27)
[2018-04-16 08:49] LABS: ABS Basophils 0.1 10^3/ul (0-0.2); ABS Eosinophils 0.2 10^3/ul (0-0.6); ABS Lymphocytes 1.6 10^3/ul (1.0-4.8); ABS Monocytes 0.4 10^3/ul (0-0.8); ABS Neutrophils 5.8 10^3/ul (1.5-7.7); ABS Nucleated RBC 0 10^3/ul; Eosinophil % 2.8 % (0-6); Hematocrit 38 % (42-52); Hemoglobin 12.5 g/dl (14.0-18.0); Lymphocyte % 19.5 % (25-47); Mean Corpuscular HGB Conc 33 g/dl (31-36); Mean Corpuscular Hemoglobin 31 pg (27-31); Mean Corpuscular Volume 95 fL (80-94); Mean Platelet Volume 8.3 fL (7.4-10.4); Nucleated Red Blood Cells % 0.1; Platelet Count 184 10^3/ul (150-450); Red Cell Distribution Width 14 % (10.5-15)
[2018-04-16 08:52] LABS: INR 0.92 (0.77-1.02)
[2018-04-16] MEDS: Diltiazem DRIP* 100 MG/100 ML ADDV.BAG IVPB ONE ×2 (08:59→09:42)
[2018-04-16 09:01] LABS: EGFR Non-African American 87.8 (>60)
--- NOTE | 2018-04-16 09:53 | RAD ---
INDICATION: Shortness of breath in a patient with a reported history of Marfan syndrome COMPARISON: Chest x-ray dated May 26, 2017 TECHNIQUE: Single AP portable view of the chest was obtained. FINDINGS: Image quality is compromised due to the relative inferiority of a portable chest x-ray. The heart and mediastinum exhibit normal size and contour. The pulmonary vasculature is mildly engorged and indistinct. There are hazy densities overlying the bilateral lungs not seen on previous chest x-rays. Otherwise the lungs are grossly clear. There is no evidence of a large pleural effusion. Visualized bones are normal for the patient's age. IMPRESSION: In the correct clinical setting chest x-ray findings could be compatible with vascular congestion that was not readily apparent on the May 26, 2017 chest x-ray.
[2018-04-16] MEDS ORDERED: Metoprolol Succinate XL TAB* 50 MG PO ONE (10:34)
[2018-04-16] MEDS ORDERED: Furosemide IV* 10 MG/ML 2 ML VIAL (20 MG) IV SLOW PU ONE (10:41)
[2018-04-16] MEDS ORDERED: Docusate CAP* 100 MG PO PRN (10:55)
[2018-04-16] MEDS ORDERED: Acetaminophen TAB* 325 MG PO PRN (10:55)
[2018-04-16] MEDS ORDERED: Ondansetron INJ* 2 MG/ML VIAL IV PRN (10:55)
--- NOTE | 2018-04-16 13:12 | HP ---
ADMISSION HISTORY AND PHYSICAL: DATE OF ADMISSION: 04/16/18 PRIMARY CARE PROVIDER: Dr. Putnam. CELL FEED DEPARTMENT SUPERVISOR: Dr. Bagley. HEALTHCARE PROXY: His . CODE STATUS: Full. SOURCE: History obtained from interview with the patient and his . RELIABILITY: Good. CHIEF COMPLAINT: Shortness of breath and fatigue. HISTORY OF PRESENT ILLNESS: This is a 67-year-old gentleman with past medical history of a severe ischemic cardiomyopathy, last known EF 20% to 25%, paroxysmal atrial fibrillation status post Watchman device in summer seen, CAD, history of stents last in 2007, as well as bipolar disorder and Marfan disorder who over the last 6 weeks has been "somewhat manic on and off" per his . Episodes where he was more active, not sleeping for 2 weeks and then improved. It is similar to previous events where it is usually progressive to him needing hospital stay. His last inpatient admission at [facility] was in December 2017. Over the last 3 days prior to admission, he was "a bit more manic" per his , not sleeping well, working long days around the house on projects, started feeling fatigued and noticed that in conjunction, his "breath was shallow." He noticed walking up the stairs that he became winded which was the reason for him to present to the emergency room. Additionally, the night prior to presentation, noted that he was breathing more heavily in bed, although denied any orthopnea or PND. He denies any chest pain or palpitations , loss of consciousness or near loss of consciousness, although repeatedly notes he had been feeling off and more fatigued. He denies any changes in his medications. He does not believe he forgot to take any medications. He has stable caffeine intake approximately a cup of coffee per day or less. He is a nonsmoker, quit 15 years prior to presentation. On presentation to the emergency room, his heart rate was noted to be 157 beats per minute, in atrial fibrillation for which he received IV diltiazem 15 mg and started on a diltiazem drip. When seen by this author, his heart rate was 95 beats per minute and he felt in no distress. PAST MEDICAL HISTORY: Significant for: 1, Ischemic cardiomyopathy, decreased EF 20% to 25%. 2. Paroxysmal atrial fibrillation status post Watchman device in summer secondary to frequent falls. 3. CAD, 2 stents, 2007. 4. Bipolar disorder. 5. Marfan disorder. 6. Hypertension. 7. ADHD. 8. History of cervical spine fusion with Dr. Finn. 9. Chronic pain. MEDICATIONS: The patient did not bring a list, but confirms the current is accurate: 1. Ibuprofen 600 mg every 8 hours as needed. 2. Depakote ER 1500 mg at bedtime. 3. Aspirin 81 mg daily. 4. Amiodarone 200 mg daily. 5. Amlodipine 5 mg daily. 6. Spironolactone 25 mg daily. 7. Ramipril 5 mg daily. 8. Olanzapine 5 mg at bedtime as needed. 9. Metoprolol succinate 50 mg daily. FAMILY HISTORY: No CAD or CVAs. SOCIAL HISTORY: Quit smoking 15 years prior. Previous to that approximately 3 to 4 packs per day for 15 years. No alcohol and no illicits. Unemployed. REVIEW OF SYSTEMS: As per HPI including feeling manic more recently with decreased sleep, shortness of breath and fatigue. Otherwise, all other systems reviewed and negative. PHYSICAL EXAMINATION GENERAL: Lying 30 degrees in bed, interactive, pleasant, in no apparent distress. VITAL SIGNS: When seen by this author 130/98, heart rate 95, respiratory rate is 20, 93% on 2 L. T-max in the emergency room is 98.2. HEENT: His oropharynx is clear. NECK: He has no cervical or supraclavicular lymphadenopathy, has non-elevated JVDs. LUNGS: His lungs have rales in bilateral bases extending up approximately one- third to the apices. HEART: Irregularly irregular heart rate that is not tachycardic. ABDOMEN: Soft, nontender, nondistended. EXTREMITIES: Warm and well perfused. He has very trace lower extremity pitting edema. Less than 2 second cap refill. NEURO: He is alert and oriented x3. His cranial nerves II through XII are intact. His thought process is goal directed. Speech is fluent. No apparent anxiety, agitation, depression, or bari. DIAGNOSTIC STUDIES/LAB DATA: Labs reviewed notable for troponin I 0.07, BNP 648. TSH is 2.42. Hemoglobin 12.5, platelets 184,000. EKG: Atrial fibrillation, left axis, good R-wave progression, T-wave inversions in V6. Otherwise, no ST or T-wave changes. Chest x-ray: Official impression is, in the right clinical context chest x-ray could be compatible with vascular congestion, new from last x-ray. ASSESSMENT AND PLAN: A 67-year-old man, medical history including severe ischemic cardiomyopathy, paroxysmal atrial fibrillation status post Watchman device last year, presenting with increased fatigue, shortness of breath, finally atrial fibrillation and rapid ventricular response. 1. Atrial fibrillation, rapid ventricular response. Started on diltiazem drip in the emergency room, now well controlled. The patient did not take his medications this morning. We will give him metoprolol 50 mg now, maintain diltiazem drip, move to the ICU. Pending a response to metoprolol p.o., can attempt conversion of some of his IV diltiazem to p.o. and/or increase metoprolol dose. Unclear etiology for breakthrough at this time other than recent bari, lack of sleep, increased stress. The patient received full dose Lovenox in the emergency room; however, has Watchman device for frequent falls. Will not continue full dose anticoagulation. 2. Acute systolic heart failure exacerbation in the setting of atrial fibrillation - rales in bilateral bases. Lasix IV 20 mg now, monitor for response. 3. Elevated troponins. Suspect type 2 demand ischemia in the setting of severe ischemic cardiomyopathy and rapid heart rate. Continue to trend. 4. Bipolar disorder. Continue Depakote and Zyprexa. No evidence of bari at this time. No need for psych consultation at this time. 5. Ischemic cardiomyopathy. Continue all home medications including VERONIQUE inhibitor, spironolactone, beta-hussein as above, aspirin, and amiodarone for atrial fibrillation. 6. DVT prophylaxis. that he received today will be non-full dose Lovenox. [id number]/[facility] #: [id number] [facility] MEDICAL CENTERIsauro
[2018-04-16] MEDS ORDERED: Metoprolol Tartrate TAB* 25 MG PO ONE (15:00)
[2018-04-16] MEDS: Benzocaine/Menthol LOZ* 1 LOZENGE PO PRN ×2 (15:22→23:10)
[2018-04-16] MEDS: Diltiazem DRIP* 100 MG/100 ML ADDV.BAG IVPB SCH (19:21)
[2018-04-16] MEDS: Divalproex ER TAB(*) 500 MG PO SCH (21:18)
[2018-04-16] MEDS: Ibuprofen TAB* 600 MG PO PRN (21:23)
[2018-04-16] MEDS: OLANzapine TAB* 5 MG PO PRN (23:54)
[2018-04-17] MEDS ORDERED: Furosemide IV* 10 MG/ML 2 ML VIAL (20 MG) IV ONE (00:17)
[2018-04-17] MEDS ORDERED: Furosemide IV* 10 MG/ML 2 ML VIAL (20 MG) ONE (00:26)
--- NOTE | 2018-04-17 07:30 | PN ---
Subjective Date of Service: 04/17/18 Interval History: SOB overnight and received lasix This AM still drowsy but reports subjective improvement Denies CP, N/V, LH, palps On dilt gtt at 6 down from 10 Objective Active Medications: Acetaminophen (Tylenol Tab*) 650 mg PO Q4H PRN PRN Reason: FEVER/PAIN Amiodarone HCl (Cordarone Tab*) 200 mg PO DAILY [facility] Amlodipine Besylate (Norvasc Tab*) 5 mg PO DAILY [facility] Aspirin (Aspirin Ec Tab*) 81 mg PO DAILY [facility] Divalproex Sodium (Depakote Er Tab(*)) 1,500 mg PO BEDTIME [facility] Last Admin: 04/16/18 21:18 Dose: 1,500 mg Docusate Sodium (Colace Cap*) 100 mg PO BID PRN PRN Reason: CONSTIPATION Enoxaparin Sodium (Lovenox(*)) 40 mg SUBCUT Q24H [facility] Diltiazem HCl (Cardizem Iv Advan*) 100 mg in 100 mls @ 8 mls/hr IVPB .INITIAL RATE [facility]; Protocol Last Admin: 04/16/18 19:21 Dose: 6 mls/hr Ibuprofen (Motrin Tab*) 600 mg PO Q8H PRN PRN Reason: PAIN Last Admin: 04/16/18 21:23 Dose: 600 mg Metoprolol Succinate (Toprol Xl Tab*) 50 mg PO DAILY [facility] Olanzapine (Zyprexa Tab*) 5 mg PO BEDTIME PRN PRN Reason: SLEEP Last Admin: 04/16/18 23:54 Dose: 5 mg Ondansetron HCl (Zofran Inj*) 4 mg IV Q4H PRN PRN Reason: NAUSEA/VOMITING Ramipril (Altace Cap*) 5 mg PO DAILY [facility] Spironolactone (Aldactone Tab*) 25 mg PO DAILY [facility] Throat Lozenges (Chloraseptic Miguel*) 1 miguel PO Q1H PRN PRN Reason: SORE THROAT Last Admin: 04/16/18 23:10 Dose: 1 miguel Vital Signs - 8 hr 04/17/18 04/17/18 04/17/18 00:30 01:00 EST 01:01 EST Temperature Pulse Rate 83 98 Respiratory 25 23 23 Rate Blood Pressure 147/94 147/109 (mmHg) O2 Sat by Pulse 95 93 Oximetry 04/17/18 04/17/18 04/17/18 01:05 EST 01:31 EST 02:00 Temperature Pulse Rate 88 80 90 Respiratory 22 23 23 Rate Blood Pressure 147/115 125/82 132/106 (mmHg) O2 Sat by Pulse 93 91 91 Oximetry 04/17/18 04/17/18 04/17/18 02:01 02:30 02:57 Temperature Pulse Rate 69 85 Respiratory 22 22 23 Rate Blood Pressure 148/106 (mmHg) O2 Sat by Pulse 92 95 Oximetry 04/17/18 04/17/18 04/17/18 03:01 03:31 04:00 Temperature 98.1 F Pulse Rate 96 81 90 Respiratory 23 28 20 Rate Blood Pressure 158/104 137/112 (mmHg) O2 Sat by Pulse 94 92 95 Oximetry 04/17/18 04/17/18 04/17/18 04:01 04:31 05:00 Temperature Pulse Rate 85 76 Respiratory 23 23 23 Rate Blood Pressure 140/83 129/80 (mmHg) O2 Sat by Pulse 95 95 Oximetry 04/17/18 04/17/18 04/17/18 05:01 05:31 06:00 Temperature Pulse Rate 70 76 79 Respiratory 23 21 23 Rate Blood Pressure 107/88 134/94 (mmHg) O2 Sat by Pulse 95 93 95 Oximetry 04/17/18 04/17/18 06:01 07:20 Temperature 97.9 F Pulse Rate 70 Respiratory 23 Rate Blood Pressure 153/120 (mmHg) O2 Sat by Pulse 96 Oximetry Oxygen Devices in Use Now: Simple Face Mask, OxyMask Appearance: lying flat, NAD Eyes: No Scleral Icterus Ears/Nose/Mouth/Throat: Clear Oropharnyx, Mucous Membranes Moist Neck: NL Appearance and Movements; NL JVP Respiratory: Symmetrical Chest Expansion and Respiratory Effort, - - rales in bases improved from admission Cardiovascular: - - IRIR, regular rate Abdominal: NL Sounds; No Tenderness; No Distention, No Hepatosplenomegaly Lymphatic: No Cervical Adenopathy Extremities: No Edema Skin: No Rash or Ulcers Neurological: Alert and Oriented x 3 Result Diagrams: 04/16/18 08:34 04/16/18 08:34 Microbiology and Other Data: Microbiology 04/16/18 12:10 Nasal Screen MRSA (PCR) - Final Nasal Mrsa Not Detected Assess/Plan/Problems-Billing Assessment: 67 yo M admitted with afib RVR - Patient Problems (1) Afib Comment: Off anticoagulation s/p watchman in 2017 (placed 2/2 falls) increase metoprolol by 25mg q6hr with hold parameters until cardizem gtt is titrated off c/w amlodipine (2) Systolic heart failure Comment: acute sCHF exacerbation In setting of afib and fluid during ED/hospital stay Received total of 40 lasix so far Monitor and dose more if needed pending BMP/Mg (3) Ischemic cardiomyopathy Comment: continue home meds metoprolol at increased dose amlodipine aldactone ASA Ramipril (4) Bipolar 1 disorder Comment: Continue depakote zyprexa PRN bedtime (5) DVT prophylaxis Comment: Lovenox
[2018-04-17 08:26] LABS: EGFR Non-African American 70.7 (>60)
[2018-04-17] MEDS: Metoprolol Tartrate TAB* 25 MG PO SCH ×3 (08:26→20:53)
[2018-04-17] MEDS: Spironolactone TAB* 25 MG PO SCH (08:26)
[2018-04-17] MEDS: Metoprolol Succinate XL TAB* 50 MG PO SCH (08:27)
[2018-04-17] MEDS: Aspirin EC TAB* 81 MG TAB.EC PO SCH (08:27)
[2018-04-17] MEDS: Amiodarone TAB* 200 MG PO SCH (08:27)
[2018-04-17] MEDS: Ramipril CAP* 5 MG PO SCH (08:27)
[2018-04-17] MEDS: amLODIPine TAB* 5 MG PO SCH (08:29)
[2018-04-17] MEDS: Ibuprofen TAB* 600 MG PO PRN ×2 (10:37→23:13)
[2018-04-17] MEDS: Enoxaparin(*) 40 MG/0.4 ML SYR SUBCUT SCH (11:38)
[2018-04-17] MEDS: Diltiazem DRIP* 100 MG/100 ML ADDV.BAG IVPB SCH (15:10)
[2018-04-17] MEDS ORDERED: Digoxin IV* 0.5 MG/2 ML AMP (0.25 MG/ML) IV SLOW PU ONE (17:24)
[2018-04-17] MEDS: Divalproex ER TAB(*) 500 MG PO SCH (20:53)
[2018-04-17] MEDS: OLANzapine TAB* 5 MG PO PRN (23:11)
[2018-04-18] MEDS: Metoprolol Tartrate TAB* 25 MG PO SCH ×5 (01:40→23:41)
[2018-04-18 06:01] LABS: EGFR Non-African American 71.5 (>60)
[2018-04-18] MEDS ORDERED: Digoxin IV* 0.5 MG/2 ML AMP (0.25 MG/ML) IV SLOW PU ONE ×3 (07:30→20:00)
[2018-04-18] MEDS ORDERED: Furosemide IV* 10 MG/ML VIAL (40 MG) IV SLOW PU ONE (07:30)
--- NOTE | 2018-04-18 07:34 | PN ---
Subjective Date of Service: 04/18/18 Interval History: Off dilt gtt early this AM Remains on oxygen but denies SOB No CP nor palps Received 1 dose digoxin yesterday evening Objective Active Medications: Acetaminophen (Tylenol Tab*) 650 mg PO Q4H PRN PRN Reason: FEVER/PAIN Amiodarone HCl (Cordarone Tab*) 200 mg PO DAILY [facility] Last Admin: 04/17/18 08:27 Dose: 200 mg Amlodipine Besylate (Norvasc Tab*) 5 mg PO DAILY [facility] Last Admin: 04/17/18 08:29 Dose: 5 mg Aspirin (Aspirin Ec Tab*) 81 mg PO DAILY [facility] Last Admin: 04/17/18 08:27 Dose: 81 mg Digoxin (Digoxin Iv*) 0.25 mg IV SLOW PU ONCE ONE Stop: 04/18/18 07:31 Divalproex Sodium (Depakote Er Tab(*)) 1,500 mg PO BEDTIME [facility] Last Admin: 04/17/18 20:53 Dose: 1,500 mg Docusate Sodium (Colace Cap*) 100 mg PO BID PRN PRN Reason: CONSTIPATION Enoxaparin Sodium (Lovenox(*)) 40 mg SUBCUT Q24H [facility] Last Admin: 04/17/18 11:38 Dose: 40 mg Furosemide (Lasix Iv*) 40 mg IV SLOW PU ONCE ONE Stop: 04/18/18 07:31 Diltiazem HCl (Cardizem Iv Advan*) 100 mg in 100 mls @ 8 mls/hr IVPB .INITIAL RATE [facility]; Protocol Last Admin: 04/17/18 15:10 Dose: 2 mls/hr Ibuprofen (Motrin Tab*) 600 mg PO Q8H PRN PRN Reason: PAIN Last Admin: 04/17/18 23:13 Dose: 600 mg Influenza Virus Vaccine (Fluarix *Quad* 2017-*) 0.5 ml IM .ONCE ONE Stop: 04/18/18 09:01 Metoprolol Succinate (Toprol Xl Tab*) 50 mg PO DAILY [facility] Last Admin: 04/17/18 08:27 Dose: 50 mg Metoprolol Tartrate (Lopressor Tab*) 12.5 mg PO Q6HR [facility] Olanzapine (Zyprexa Tab*) 5 mg PO BEDTIME PRN PRN Reason: SLEEP Last Admin: 11/04/18 23:11 Dose: 5 mg Ondansetron HCl (Zofran Inj*) 4 mg IV Q4H PRN PRN Reason: NAUSEA/VOMITING Pneumococcal Polyvalent Vaccine (Pneumococcal Vac 23-Polyvalent*) 0.5 ml IM .ONCE ONE Stop: 04/18/18 09:01 Ramipril (Altace Cap*) 5 mg PO DAILY [facility] Last Admin: 04/17/18 08:27 Dose: 5 mg Spironolactone (Aldactone Tab*) 25 mg PO DAILY [facility] Last Admin: 04/17/18 08:26 Dose: 25 mg Throat Lozenges (Chloraseptic Miguel*) 1 miguel PO Q1H PRN PRN Reason: SORE THROAT Last Admin: 04/16/18 23:10 Dose: 1 miguel Vital Signs - 8 hr 04/17/18 04/18/18 04/18/18 23:32 00:00 00:31 Temperature 98.1 F Pulse Rate 90 89 Respiratory 16 20 20 Rate Blood Pressure 129/76 145/64 (mmHg) O2 Sat by Pulse 94 91 Oximetry 04/18/18 04/18/18 04/18/18 00:32 01:01 01:30 Temperature Pulse Rate 86 77 Respiratory 24 30 24 Rate Blood Pressure 108/67 98/63 (mmHg) O2 Sat by Pulse 92 96 Oximetry 04/18/18 04/18/18 04/18/18 01:44 02:00 02:01 Temperature Pulse Rate 70 80 Respiratory 13 20 23 Rate Blood Pressure 95/70 (mmHg) O2 Sat by Pulse 91 91 Oximetry 04/18/18 04/18/18 04/18/18 02:30 03:00 03:21 Temperature Pulse Rate 57 71 Respiratory 21 20 20 Rate Blood Pressure 108/65 110/66 (mmHg) O2 Sat by Pulse 96 95 Oximetry 04/18/18 04/18/18 04/18/18 03:30 04:00 04:01 Temperature 97.8 F Pulse Rate 64 75 64 Respiratory 21 18 13 Rate Blood Pressure 105/72 113/92 (mmHg) O2 Sat by Pulse 97 96 95 Oximetry 04/18/18 04/18/18 04/18/18 04:30 05:00 05:30 Temperature Pulse Rate 90 77 76 Respiratory 23 23 21 Rate Blood Pressure 132/93 104/68 125/73 (mmHg) O2 Sat by Pulse 96 94 93 Oximetry 04/18/18 04/18/18 04/18/18 06:00 06:01 07:16 Temperature 98.2 F Pulse Rate 85 89 Respiratory 22 29 Rate Blood Pressure 111/79 (mmHg) O2 Sat by Pulse 94 97 Oximetry Oxygen Devices in Use Now: Nasal Cannula Appearance: lying flat, NAD Eyes: No Scleral Icterus, PERRLA Ears/Nose/Mouth/Throat: NL Teeth, Lips, Gums, Clear Oropharnyx Neck: NL Appearance and Movements; NL JVP, Trachea Midline Respiratory: Symmetrical Chest Expansion and Respiratory Effort, - - rales b/l bases left higher than right Cardiovascular: - - IRIR Abdominal: NL Sounds; No Tenderness; No Distention, No Hepatosplenomegaly Lymphatic: No Cervical Adenopathy Extremities: - - trace b/l LE edema Neurological: Alert and Oriented x 3 Result Diagrams: 04/16/18 08:34 04/18/18 05:35 Microbiology and Other Data: Microbiology 04/16/18 12:10 Nasal Screen MRSA (PCR) - Final Nasal Mrsa Not Detected Assess/Plan/Problems-Billing Assessment: 67 yo M admitted with afib RVR - Patient Problems (1) Afib Comment: Off anticoagulation s/p watchman in 2017 (placed 2/2 falls) cardizam off decrease metoprolol 25mg q6hr to 12.5mg q6hr today and start digoxin c/w amlodipine (2) Systolic heart failure Comment: acute sCHF exacerbation In setting of afib and fluid during ED/hospital stay 40IV lasx 04/18 Monitor and dose more if needed pending BMP/Mg (3) Ischemic cardiomyopathy Comment: continue home meds metoprolol at increased dose amlodipine aldactone ASA Ramipril (4) Bipolar 1 disorder Comment: Continue depakote zyprexa PRN bedtime (5) DVT prophylaxis Comment: Lovenox
[2018-04-18] MEDS ORDERED: Pneumococcal *Vac Polyvalent 0.5 ML VIAL IM ONE (09:00)
[2018-04-18] MEDS: Aspirin EC TAB* 81 MG TAB.EC PO SCH (09:04)
[2018-04-18] MEDS: Metoprolol Succinate XL TAB* 50 MG PO SCH (09:04)
[2018-04-18] MEDS: Spironolactone TAB* 25 MG PO SCH (09:05)
[2018-04-18] MEDS: Amiodarone TAB* 200 MG PO SCH (09:05)
[2018-04-18] MEDS: amLODIPine TAB* 5 MG PO SCH (09:05)
[2018-04-18] MEDS: Ramipril CAP* 5 MG PO SCH (09:09)
[2018-04-18] MEDS ORDERED: Metoprolol Tartrate IV* 1 MG/ML 5 ML VIAL IV ONE (09:44)
[2018-04-18] MEDS: Enoxaparin(*) 40 MG/0.4 ML SYR SUBCUT SCH (12:01)
[2018-04-18] MEDS: Divalproex ER TAB(*) 500 MG PO SCH (21:32)
[2018-04-18] MEDS: Ibuprofen TAB* 600 MG PO PRN (23:42)
[2018-04-18] MEDS: OLANzapine TAB* 5 MG PO PRN (23:42)
[2018-04-19] MEDS ORDERED: Diltiazem IV* 5 MG/ML 5 ML VIAL (for loading dose/IV Push) (25 MG) IV PUSH ONE (01:00)
[2018-04-19] MEDS ORDERED: Diltiazem IV VIAL* 5 MG/ML 10 ML VIAL IV PUSH ONE (01:00)
[2018-04-19] MEDS: Metoprolol Tartrate TAB* 25 MG PO SCH ×3 (05:48→17:53)
[2018-04-19] MEDS: Digoxin TAB* 0.125 MG PO SCH ×2 (08:44→17:51)
[2018-04-19] MEDS: Metoprolol Succinate XL TAB* 50 MG PO SCH (08:44)
[2018-04-19] MEDS: Aspirin EC TAB* 81 MG TAB.EC PO SCH (08:44)
[2018-04-19] MEDS: amLODIPine TAB* 5 MG PO SCH (08:45)
[2018-04-19] MEDS: Ramipril CAP* 5 MG PO SCH (08:46)
[2018-04-19] MEDS: Spironolactone TAB* 25 MG PO SCH (08:47)
[2018-04-19] MEDS: Amiodarone TAB* 200 MG PO SCH (08:47)
[2018-04-19 10:18] LABS: EGFR Non-African American 61.8 (>60)
[2018-04-19] MEDS: Enoxaparin(*) 40 MG/0.4 ML SYR SUBCUT SCH (10:56)
--- NOTE | 2018-04-19 14:37 | PN ---
Subjective Interval History: got 10mg IV dilt overnight at 0100 for tachycardia Digoxing level 1.4. Overall rates better 90s currently. denies SOB but on 5L here and none at home. Tmax 100.[address] Bagley. labile blood pressures. Objective Active Medications: Acetaminophen (Tylenol Tab*) 650 mg PO Q4H PRN PRN Reason: FEVER/PAIN Amiodarone HCl (Cordarone Tab*) 200 mg PO DAILY [facility] Last Admin: 04/19/18 08:47 Dose: 200 mg Amlodipine Besylate (Norvasc Tab*) 5 mg PO DAILY [facility] Last Admin: 04/19/18 08:45 Dose: 5 mg Aspirin (Aspirin Ec Tab*) 81 mg PO DAILY [facility] Last Admin: 04/19/18 08:44 Dose: 81 mg Digoxin (Lanoxin Tab*) 0.125 mg PO 1700 [facility] Last Admin: 04/19/18 08:44 Dose: 0.125 mg Divalproex Sodium (Depakote Er Tab(*)) 1,500 mg PO BEDTIME [facility] Last Admin: 04/18/18 21:32 Dose: 1,500 mg Docusate Sodium (Colace Cap*) 100 mg PO BID PRN PRN Reason: CONSTIPATION Enoxaparin Sodium (Lovenox(*)) 40 mg SUBCUT Q24H [facility] Last Admin: 04/19/18 10:56 Dose: 40 mg Diltiazem HCl (Cardizem Iv Advan*) 100 mg in 100 mls @ 8 mls/hr IVPB .INITIAL RATE [facility]; Protocol Last Admin: 04/17/18 15:10 Dose: 2 mls/hr Ibuprofen (Motrin Tab*) 600 mg PO Q8H PRN PRN Reason: PAIN Last Admin: 04/18/18 23:42 Dose: 600 mg Metoprolol Succinate (Toprol Xl Tab*) 50 mg PO DAILY [facility] Last Admin: 04/19/18 08:44 Dose: 50 mg Metoprolol Tartrate (Lopressor Tab*) 12.5 mg PO Q6HR [facility] Last Admin: 04/19/18 10:57 Dose: 12.5 mg Olanzapine (Zyprexa Tab*) 5 mg PO BEDTIME PRN PRN Reason: SLEEP Last Admin: 04/18/18 23:42 Dose: 5 mg Ondansetron HCl (Zofran Inj*) 4 mg IV Q4H PRN PRN Reason: NAUSEA/VOMITING Ramipril (Altace Cap*) 5 mg PO DAILY [facility] Last Admin: 04/19/18 08:46 Dose: 5 mg Spironolactone (Aldactone Tab*) 25 mg PO DAILY [facility] Last Admin: 04/19/18 08:47 Dose: 25 mg Throat Lozenges (Chloraseptic Miguel*) 1 miguel PO Q1H PRN PRN Reason: SORE THROAT Last Admin: 04/16/18 23:10 Dose: 1 miguel Vital Signs - 8 hr 04/19/18 08:44 Pulse Rate 114 Oxygen Devices in Use Now: Nasal Cannula Appearance: NAD, initially asleep bu easily awoken Eyes: No Scleral Icterus, PERRLA Ears/Nose/Mouth/Throat: NL Teeth, Lips, Gums, Mucous Membranes Moist Neck: NL Appearance and Movements; NL JVP, Trachea Midline Respiratory: Symmetrical Chest Expansion and Respiratory Effort, Clear to Auscultation Cardiovascular: - - irregularly irregular Abdominal: NL Sounds; No Tenderness; No Distention, No Hepatosplenomegaly Extremities: - - trace edema Skin: No Rash or Ulcers Neurological: Alert and Oriented x 3, NL Sensation, NL Muscle Strength and Tone Nutrition: Taking PO's Result Diagrams: 04/16/18 08:34 04/19/18 09:51 Additional Lab and Data: Laboratory Results - last 24 hr 04/19/18 04/19/18 00:48 09:51 Sodium 138 Potassium 3.9 Chloride 102 Carbon Dioxide 31 Anion Gap 5 BUN 29 H Creatinine 1.18 H Est GFR ( Amer) 74.7 Est GFR (Non-Af Amer) 61.8 BUN/Creatinine Ratio 24.6 H Glucose 157 H Calcium 8.9 Magnesium 2.0 Digoxin 1.4 Microbiology and Other Data: Microbiology 04/16/18 12:10 Nasal Nasal Screen MRSA (PCR) - Final Mrsa Not Detected Assess/Plan/Problems-Billing Assessment: 67 yo male PMH severe systolic CHF(20-25%), pAfib s/p Watchman (2017) on amiodarone p/w with afib RVR. Digoxin loaded. Acute Hypoxic respiratory failure. Labile BPs. - Patient Problems (1) Afib Current Visit: Yes Status: Acute Code(s): I48.91 - UNSPECIFIED ATRIAL FIBRILLATION SNOMED Code(s): 77780726 Comment: Off anticoagulation s/p watchman in 2017 (placed 2/2 falls) cardizam gtt off. continue metoprolol succinate 50mg (also on 12.5mg q6hr) digoxin loaded. repeat level in AM. 1.4 today. stop amlodipine 5mg (2) Acute respiratory failure with hypoxia Current Visit: Yes Status: Acute Code(s): J96.01 - ACUTE RESPIRATORY FAILURE WITH HYPOXIA SNOMED Code(s): 08572725 Comment: likely 2/2 acute CHF in setting of tachyarrhythmia and severe systolic dysfunction gentle diuresis as able though BP quite labile currently. (3) DVT prophylaxis Current Visit: Yes Status: Acute Priority: Medium Onset Date: 08/28/14 Code(s): GYO4672 - SNOMED Code(s): 917294628 Comment: Lovenox (4) Ischemic cardiomyopathy Current Visit: Yes Status: Acute Code(s): I25.5 - ISCHEMIC CARDIOMYOPATHY SNOMED Code(s): 512559457 Comment: metoprolol succinate 50mg given hypotention stop amlodipine continue aldactone and ramipril ASA (5) Systolic heart failure Current Visit: Yes Status: Acute Code(s): I50.20 - UNSPECIFIED SYSTOLIC ( CONGESTIVE) HEART FAILURE SNOMED Code(s): 949638263 Comment: acute sCHF exacerbation In setting of afib and fluid during ED/hospital stay 40IV lasx 11/5 Monitor and dose more if needed pending BMP/Mg (6) Bipolar 1 disorder Current Visit: Yes Status: Chronic Code(s): F31.9 - BIPOLAR DISORDER, UNSPECIFIED SNOMED Code(s): 305395581 Comment: Continue depakote zyprexa PRN bedtime (7) Congestive heart failure Current Visit: No Status: Acute Priority: High Onset Date: 08/28/14 Code (s): I50.9 - HEART FAILURE, UNSPECIFIED SNOMED Code(s): 38220837 Comment: decompensated with afib RVR - combined systolic/diastolic strict I/O and daily weights Status and Disposition: medicine inpatient with med titration and acute hypoxic respiratory failure
[2018-04-19] MEDS: Ibuprofen TAB* 600 MG PO PRN (20:36)
[2018-04-19] MEDS: Divalproex ER TAB(*) 500 MG PO SCH (20:37)
[2018-04-19] MEDS: OLANzapine TAB* 5 MG PO PRN (20:37)
[2018-04-20] MEDS: Metoprolol Tartrate TAB* 25 MG PO SCH ×5 (00:13→23:38)
[2018-04-20 07:50] LABS: ABS Basophils 0 10^3/ul (0-0.2); ABS Eosinophils 0.3 10^3/ul (0-0.6); ABS Lymphocytes 1.4 10^3/ul (1.0-4.8); ABS Monocytes 0.7 10^3/ul (0-0.8); ABS Neutrophils 4.2 10^3/ul (1.5-7.7); ABS Nucleated RBC 0 10^3/ul; Eosinophil % 4.8 % (0-6); Hematocrit 40 % (42-52); Hemoglobin 13.5 g/dl (14.0-18.0); Mean Corpuscular HGB Conc 34 g/dl (31-36); Mean Corpuscular Hemoglobin 32 pg (27-31); Mean Corpuscular Volume 94 fL (80-94); Mean Platelet Volume 8.3 fL (7.4-10.4); Nucleated Red Blood Cells % 0.1; Platelet Count 196 10^3/ul (150-450); Red Blood Count 4.27 10^6/ul (4.00-5.40); Red Cell Distribution Width 14 % (10.5-15); White Blood Count 6.7 10^3/ul (3.5-10.8)
[2018-04-20 08:04] LABS: EGFR Non-African American 77.4 (>60)
[2018-04-20] MEDS: Aspirin EC TAB* 81 MG TAB.EC PO SCH (09:54)
[2018-04-20] MEDS: Amiodarone TAB* 200 MG PO SCH (09:54)
[2018-04-20] MEDS: Metoprolol Succinate XL TAB* 50 MG PO SCH (09:55)
[2018-04-20] MEDS: Ramipril CAP* 5 MG PO SCH (09:56)
[2018-04-20] MEDS: Spironolactone TAB* 25 MG PO SCH (09:57)
[2018-04-20] MEDS: Enoxaparin(*) 40 MG/0.4 ML SYR SUBCUT SCH (10:58)
--- NOTE | 2018-04-20 15:25 | ECHO ---
Patient: MO GARCIA [facility] Rec#: [id number] : 1950 Date: 04/20/2018 Age: 67y Height: 183 cm / 72.0 in Weight: 108.4 kg / 238.9 lbs Sex: M BSA: 2.3 Room#: 453 Admit Date#: 04/16/2018 Type: Inpatient Referring: Flakito Lubin Reading: Lauryn Saha MD [employer] Maintainer: Concepcion Salcedo RDCS CC: David Putnam MD Transthoracic Echocardiogram Indication: Congestive heart failure, abnormal ekg BP: 117/75 HR: 80 Rhythm: A-Fib Findings History: Ischemic cardiomyopathy, CAD, PCI, HTN, a-flutter. Technical Comments: The study quality is good. Completed at 1445. Left Ventricle: The left ventricular chamber size is normal. Moderate concentric left ventricular hypertrophy is observed. There is global hypokinesis of the left ventricle with minor regional variation. There is moderate to severely decreased left ventricular systolic function. The estimated ejection fraction is 30-35%. There is septal flattening of the interventricular septum consistent with right ventricular volume or pressure overload. The assessment of diastolic function is non-diagnostic. Left Atrium: The left atrium is severely dilated. Right Ventricle: Moderator Band present. The right ventricle is moderately dilated. The right ventricle wall thickness is mildly increased. The right ventricular global systolic function is moderately reduced. Right Atrium: The right atrium is moderately dilated. Aortic Valve: The aortic valve is trileaflet. The aortic valve leaflets are mildly thickened. There is a trace of aortic regurgitation. There is no evidence of aortic stenosis. Mitral Valve: The mitral valve leaflets are mildly thickened. There is trace to mild mitral regurgitation. There is no evidence of mitral stenosis. Tricuspid Valve: The tricuspid valve leaflets are normal. There is trace to mild tricuspid regurgitation. The right ventricular systolic pressure is estimated at 22 mmHg. There is evidence that pulmonary hypertension may be underestimated. There is no tricuspid stenosis. Pulmonic Valve: The pulmonic valve appears normal. There is trace to mild pulmonic regurgitation. There is no pulmonic stenosis. Pericardium: There is no significant pericardial effusion. Aorta: There is mild dilatation of the ascending aorta. There is no dilatation of the aortic arch. There is mild dilatation of the aortic root. Pulmonary Artery: The main pulmonary artery is not well visualized. Venous: The inferior vena cava appears normal in size. There is a greater than 50% respiratory change in the inferior vena cava dimension. Conclusions Moderate concentric left ventricular hypertrophy is observed. There is moderate to severely decreased left ventricular systolic function. The estimated ejection fraction is 30-35%. global hypokinesis. The right ventricle is moderately dilated with RVH and right ventricular global systolic function is moderately reduced. The left atrium is severely dilated. The aortic valve leaflets are mildly thickened, trace AI, good AV function. There is trace to mild mitral regurgitation. There is trace to mild tricuspid regurgitation. The right ventricular systolic pressure is estimated at 22 mmHg. There is mild dilatation of the ascending aorta, 3.7 cm. The patient was in atrial fibrillation throughout the study. Compared with prior echo of 12/10/16, EF estimate has increased from 20-25%, RV function previously low normal, valve function is stable. Measurements Name Value Normal Range RVIDd (AP) 2D 3.4 cm (0.9 - 2.6) RVDdMajor (2D) 5.3 cm (2.2 - 4.4) RAd ISD 4CH 5.2 cm (3.4 - 4.9) RA (A4C)W 5 cm (2.9 - 4.6) IVSd (2D) 1.4 cm (0.6 - 1) LVPWd (2D) 1.4 cm (0.6 - 1) LVIDd (2D) 4.8 cm (3.6 - 5.4) LVIDs (2D) 3.3 cm - LV FS (2D) 31 % (25 - 45) Aortic Annulus 2.2 cm (1.4 - 2.6) Ao root diameter (2D) 4 cm (2.1 - 3.5) Ascending Ao 3.7 cm (2.1 - 3.4) Aortic arch 2.7 cm (1.8 - 3.4) LA dimension (AP) 2D 4.2 cm (2.3 - 3.8) LAd ISD 4CH 6.4 cm (2.9 - 5.3) LA ISD 4CH W 4.9 cm (2.5 - 4.5) Name Value Normal Range LA ESV BP (A/L) index 61 ml/m2 - Name Value Normal Range MV E-wave Vmax 0.6 m/sec - MV deceleration time 274 msec - LV septal e' Vmax 0.06 m/sec - LV lateral e' Vmax 0.09 m/sec - LV E:e' septal ratio 10 ratio - LV E:e' lateral ratio 6.67 ratio - Name Value Normal Range AV Vmax 1 m/sec - AV VTI 17.4 cm - AV peak gradient 4 mmHg - AV mean gradient 2 mmHg - LVOT Vmax 0.7 m/sec - LVOT VTI 10.2 cm - LVOT peak gradient 2 mmHg - LVOT mean gradient 1 mmHg - KEVIN Vmax 0.6 m/sec - Name Value Normal Range TR Vmax 2.2 m/sec - TR peak gradient 19 mmHg - RAP 3 mmHg - RVSP 22 mmHg - IVC diameter 1.7 cm - Name Value Normal Range PV Vmax 1 m/sec - PV peak gradient 4 mmHg -
[2018-04-20] MEDS: Digoxin TAB* 0.125 MG PO SCH (17:39)
--- NOTE | 2018-04-20 20:20 | PN ---
Subjective Date of Service: 04/20/18 Interval History: Able to be weaned off supplemental oxygen. HR to 130s when standing/walking but mostly 90s otherwise. Afib (sometimes looks likes Aflutter EKG repeated - Afib Plan on getting records from Dr. Henry Bagley. rec for cardioversion if okay from a Watchman's perspective. Objective Active Medications: Acetaminophen (Tylenol Tab*) 650 mg PO Q4H PRN PRN Reason: FEVER/PAIN Last Admin: 04/20/18 10:12 Dose: 650 mg Amiodarone HCl (Cordarone Tab*) 200 mg PO DAILY [facility] Last Admin: 04/20/18 09:54 Dose: 200 mg Aspirin (Aspirin Ec Tab*) 81 mg PO DAILY [facility] Last Admin: 04/20/18 09:54 Dose: 81 mg Digoxin (Lanoxin Tab*) 0.125 mg PO 1700 [facility] Last Admin: 04/20/18 17:39 Dose: 0.125 mg Divalproex Sodium (Depakote Er Tab(*)) 1,500 mg PO BEDTIME [facility] Last Admin: 04/19/18 20:37 Dose: 1,500 mg Docusate Sodium (Colace Cap*) 100 mg PO BID PRN PRN Reason: CONSTIPATION Enoxaparin Sodium (Lovenox(*)) 40 mg SUBCUT Q24H [facility] Last Admin: 04/20/18 10:58 Dose: 40 mg Ibuprofen (Motrin Tab*) 600 mg PO Q8H PRN PRN Reason: PAIN Last Admin: 04/19/18 20:36 Dose: 600 mg Metoprolol Succinate (Toprol Xl Tab*) 50 mg PO DAILY [facility] Last Admin: 04/20/18 09:55 Dose: 50 mg Metoprolol Tartrate (Lopressor Tab*) 12.5 mg PO Q6HR [facility] Last Admin: 04/20/18 17:40 Dose: 12.5 mg Olanzapine (Zyprexa Tab*) 5 mg PO BEDTIME PRN PRN Reason: SLEEP Last Admin: 04/18/18 23:42 Dose: 5 mg Ondansetron HCl (Zofran Inj*) 4 mg IV Q4H PRN PRN Reason: NAUSEA/VOMITING Ramipril (Altace Cap*) 5 mg PO DAILY [facility] Last Admin: 04/20/18 09:56 Dose: 5 mg Spironolactone (Aldactone Tab*) 25 mg PO DAILY [facility] Last Admin: 04/20/18 09:57 Dose: 25 mg Throat Lozenges (Chloraseptic Miguel*) 1 miguel PO Q1H PRN PRN Reason: SORE THROAT Last Admin: 04/16/18 23:10 Dose: 1 miguel Vital Signs - 8 hr 04/20/18 04/20/18 04/20/18 12:24 14:31 15:10 Temperature 98.0 F 98.0 F 98.0 F Pulse Rate 39 41 80 Respiratory 18 19 19 Rate Blood Pressure 117/83 97/66 97/66 (mmHg) O2 Sat by Pulse 95 93 93 Oximetry 04/20/18 04/20/18 04/20/18 17:39 17:51 18:12 Temperature Pulse Rate 80 41 Respiratory Rate Blood Pressure 127/74 (mmHg) O2 Sat by Pulse 82 Oximetry 04/20/18 20:00 Temperature 98.6 F Pulse Rate 59 Respiratory 18 Rate Blood Pressure 114/70 (mmHg) O2 Sat by Pulse 95 Oximetry Oxygen Devices in Use Now: None Appearance: NAD Ears/Nose/Mouth/Throat: NL Teeth, Lips, Gums Neck: NL Appearance and Movements; NL JVP Respiratory: Symmetrical Chest Expansion and Respiratory Effort, Clear to Auscultation Cardiovascular: - - irregularly, irregular, no m/r/g Abdominal: NL Sounds; No Tenderness; No Distention Extremities: No Edema Skin: No Rash or Ulcers Neurological: Alert and Oriented x 3, NL Sensation, NL Muscle Strength and Tone Nutrition: Taking PO's Result Diagrams: 04/20/18 06:47 04/20/18 06:47 Additional Lab and Data: Laboratory Results - last 24 hr 04/20/18 04/20/18 06:47 06:47 WBC 6.7 RBC 4.27 Hgb 13.5 L Hct 40 L MCV 94 MCH 32 H MCHC 34 RDW 14 Plt Count 196 MPV 8.3 Neut % (Auto) 62.5 Lymph % (Auto) 21.0 L [place] % (Auto) 11.0 H Eos % (Auto) 4.8 Baso % (Auto) 0.7 Absolute Neuts (auto) 4.2 Absolute Lymphs (auto) 1.4 Absolute Monos (auto) 0.7 Absolute Eos (auto) 0.3 Absolute Basos (auto) 0 Absolute Nucleated RBC 0 Nucleated RBC % 0.1 Sodium 139 Potassium 4.1 Chloride 104 Carbon Dioxide 29 Anion Gap 6 BUN 32 H Creatinine 0.97 Est GFR ( Amer) 93.7 Est GFR (Non-Af Amer) 77.4 BUN/Creatinine Ratio 33.0 H Glucose 109 H Calcium 8.8 Digoxin 1.0 Microbiology and Other Data: Microbiology 04/16/18 12:10 Nasal Nasal Screen MRSA (PCR) - Final Mrsa Not Detected Assess/Plan/Problems-Billing Assessment: 67 yo male PMH severe systolic CHF(20-25%, now improved to 30-35%), pAfib s/p Watchman (2017) on amiodarone p/w with afib RVR. Digoxin loaded. Acute Hypoxic respiratory failure, now resolved. Labile BPs. - Patient Problems (1) Afib Current Visit: Yes Status: Acute Code(s): I48.91 - UNSPECIFIED ATRIAL FIBRILLATION SNOMED Code(s): 63293603 Comment: Off anticoagulation s/p watchman in 2017 (placed 2/2 falls) cardizam gtt off. continue metoprolol succinate 50mg (also on 12.5mg q6hr) digoxin loaded. 1.4 -> 1.0 today. appreciate Cardiology recs. Potential cardioversion recommended if safe from a Watchman's perspective. (2) Acute respiratory failure with hypoxia Current Visit: Yes Status: Acute Code(s): J96.01 - ACUTE RESPIRATORY FAILURE WITH HYPOXIA SNOMED Code(s): 33179898 Comment: likely 2/2 acute CHF in setting of tachyarrhythmia and severe systolic dysfunction gentle diuresis as able though BP quite labile currently. (3) DVT prophylaxis Current Visit: Yes Status: Acute Priority: Medium Onset Date: 08/28/14 Code(s): WIK9426 - SNOMED Code(s): 652750270 Comment: Lovenox (4) Ischemic cardiomyopathy Current Visit: Yes Status: Acute Code(s): I25.5 - ISCHEMIC CARDIOMYOPATHY SNOMED Code(s): 501828447 Comment: metoprolol succinate 50mg given hypotention stop amlodipine continue aldactone and ramipril ASA (5) Systolic heart failure Current Visit: Yes Status: Acute Code(s): I50.20 - UNSPECIFIED SYSTOLIC ( CONGESTIVE) HEART FAILURE SNOMED Code(s): 464125710 Comment: acute systolic CHF exacerbation In setting of afib and fluid during ED/hospital stay 40IV lasx 04/18 Monitor and dose more if needed pending BMP/Mg now back to room air. EF improved to 30-35%. (6) Bipolar 1 disorder Current Visit: Yes Status: Chronic Code(s): F31.9 - BIPOLAR DISORDER, UNSPECIFIED SNOMED Code(s): 117518871 Comment: Continue depakote zyprexa PRN bedtime (7) Congestive heart failure Current Visit: No Status: Acute Priority: High Onset Date: 08/28/14 Code (s): I50.9 - HEART FAILURE, UNSPECIFIED SNOMED Code(s): 16203973 Comment: decompensated with afib RVR - combined systolic/diastolic strict I/O and daily weights Status and Disposition: medicine inpatient with med titration and possible cardioversion planned (if DIVYA ) vs d/c with A/c have done as an outpatient.
[2018-04-20] MEDS: Divalproex ER TAB(*) 500 MG PO SCH (20:38)
[2018-04-20] MEDS: Ibuprofen TAB* 600 MG PO PRN (20:39)
--- NOTE | 2018-04-20 23:01 | CONS ---
CONSULTATION REPORT: DICTATION ENDS ABRUPTLY HERE [id number] #: [id number]
--- NOTE | 2018-04-21 00:58 | CONS ---
CC: Hospitalist; Dr. Wale Bagley * CONSULTATION REPORT: DATE OF CONSULT: 04/20/18 REFINER OPERATOR: Dr. Wale Bagley, [place]. PRIMARY CARE PHYSICIAN: David Putnam MD REASON FOR CONSULTATION: Congestive heart failure and atrial fibrillation. CHIEF COMPLAINT: Shortness of breath. HISTORY OF PRESENT ILLNESS: Mr. Farah is a 67-year-old gentleman who I have consulted on before but followed by Dr. Wale Bagley in [place] for his cardiology issues. The patient has mild coronary artery disease, paroxysmal atrial fibrillation, and atrial flutter and cardiomyopathy that is felt to be tachycardic induced. I do not have his most recent cardiology records, but currently he has a Watchman implanted due to fall history and difficulty with anticoagulation, he has been on amiodarone and was in sinus rhythm on our records last October. The patient presented on 04/16/18 with shortness of breath, he is a poor historian but was able to remember that his breathing was bad and does think it is better. According to the admitting physician's notes, the patient was feeling manicky 3 days prior to admission. There is a question of compliance with medications and he was not sleeping well for the last 2 to 3 days prior to admission. On admission, he was found to be in congestive heart failure based on CT scan and he was then found to be in atrial fibrillation with a rapid ventricular rate of uncertain duration but new from October of this year. Over the last 4 days, he has had his Norvasc stopped for low blood pressure. He has had rate lowering agents increased. His amiodarone has been continued. He has had DVT prophylaxis enoxaparin added but not full dose anticoagulation, and digoxin has been added. Currently, the patient says he feels well at rest. He says he has not tested how he feels on walking. He feels he is now sleeping well, although again is a vague historian. PAST MEDICAL HISTORY: The patient has a past medical history of: 1. Cardiomyopathy, as low as 25% in 2017, 2016 of 45%, and there may be echo in between unavailable to me. 2. Coronary artery disease, status post stenting to the circumflex in 2007, catheterization in 2016, 40% occlusion of the LAD with 30% occlusions distally and in the diagonal, circumflex nondominant with patent stents, and mild in- stent restenosis, right coronary artery dominant with 20% occlusion followed by 40% distal occlusion. 3. Paroxysmal atrial flutter, status post ablation in 2014. 4. Paroxysmal AFib, on amiodarone. 5. Hypertension. 6. Dyslipidemia. 7. Congestive heart failure. 8. Bipolar disorder/versus ADHD. 9. Marfan's. 10. Closed head injury, distant. 11. Anemia. 12. Fall history. PAST SURGICAL HISTORY: Includes: 1. Watchman implant in 2017. 2. Hernia surgery. 3. Wrist surgery. 4. Leg surgery. 5. Corneal and retinal procedures. 6. Cervical spine fusion, Dr. Finn. MEDICATIONS: Current inpatient medications include: 1. Tylenol p.r.n. 2. Amiodarone 200 mg a day. 3. Aspirin 81 mg a day. 4. Digoxin 0.125 mg a day. 5. Depakote 1500 mg q.h.s. 6. Colace 100 mg b.i.d. 7. Lovenox 40 mg subcutaneous q.24 hours. 8. Motrin 600 mg q.8 hours p.r.n. pain. 9. Toprol XL 50 mg a day and short acting 12.5 mg q.6 hours p.r.n. 10. Zyprexa 5 mg q.h.s. p.r.n. sleep, insomnia. 11. Zofran p.r.n. 12. Ramipril 5 mg a day. 13. Spironolactone 25 mg a day. 14. Chloraseptic lozenges. ALLERGIES: He has no known drug allergies but reported intolerance to anticoagulants. FAMILY HISTORY: His mother at age 62 of cancer. His father at age 66 of myocardial infarction. SOCIAL HISTORY: The patient is . Smoked half a pack a day per my notes but according to Dr. Chiu, 3 to 4 packs a day for 15 years. Denies alcohol or illicit drug use currently and he is unemployed. REVIEW OF SYSTEMS: The patient is not forthcoming to me. He denies recent fevers, chills, sweats, coughing, hematuria, dysuria, and he denies chest pain, orthopnea, or PND. According to Dr. Chiu's notes; however, he was feeling more manic with diminished sleep and he does remember he was more winded when he came into the hospital. PHYSICAL EXAM: The patient is 6 feet, weighs 239 pounds with a BMI of 32.4. Vital Signs: On admission on 04/16/18, blood pressure 164/34, AFib with ventricular rate up to 160 beats per minute, oxygen saturation is 89% to 93% and he was afebrile. Vital signs tonight: Blood pressure 114/70, pulse is 59 and irregularly irregular, oxygen saturation on room air 95%, temperature 98.6. General Appearance: Tall but also a somewhat overweight older gentleman, lying flat, in no acute distress. Psychologically, pleasant and cooperative but vague. Neurologically, awake, alert, and oriented to person and place. I did not evaluate for time. Speech is articulate. Comprehension appears good. Questions answered appropriately but briefly and vaguely. No gross motor deficits. He follows commands well. Skin: Warm and dry without appreciable cyanosis. HEENT: Pupils are equal and round. Mucous membranes moist. Neck: Without increased JVP. Breath sounds were clear with good effort. No wheezes, rales, or rhonchi. Coronary: S1 and S2 irregularly irregular, a bit distant but without murmurs or rubs. Abdomen: A bit overweight. Active bowel sounds. Soft, nontender. No hepatomegaly appreciated. The lower extremities were warm and free of edema. DIAGNOSTIC STUDIES/LAB DATA: A 12-lead ECG from 10/23/17 showed sinus bradycardia, 53 beats per minute, QRS axis -30, normal AV and IV conduction times, corrected QT interval 440 milliseconds. He did have abnormal T-wave morphology with biphasic and inverted T-waves across the precordial leads and flattened T-waves in the inferior leads. EKG, 03/06/17, also confirmed normal sinus rhythm. EKG from 04/16/18 at 8:30 in the morning showed atrial fibrillation with a ventricular rate of 107 beats per minute with upright T- waves and nonspecific ST changes. Echocardiogram done today, 04/20/18, showed global hypokinesis with an ejection fraction of 30% to 35%. The right ventricle is moderately dilated and with moderate right ventricular hypokinesis, severe left atrial enlargement, overall good valve function and PA pressure estimated at 22 mmHg. Mild dilatation of the ascending aorta at 3.7 cm. Chest x-ray from 04/16/18, consistent with vascular congestion, new from . Labs from 04/20/17, white count 6.7, hematocrit 40, platelet 196,000. INR 0.92. Sodium 139, potassium 4.1, chloride 104, bicarb 29. Glucose 109. BUN 32 , creatinine 0.97. Troponins from 04/16/18 of #1 of 0.07; #2 of 0.07; #3 of 0.07. BNP on admission 648. TSH 2.42. Thyroxine low at 6.0. ALT 18, AST 18. Magnesium 2.0 on 04/19/18. From 04/20/18, digoxin level 1.0. IMPRESSION AND RECOMMENDATIONS: In summary, Juan Farah is a 67-year-old gentleman who presented with shortness of breath and chest x-ray and laboratory data consistent with congestive heart failure, found in atrial fibrillation with rapid ventricular rate, new from October of this year, but of uncertain duration. The patient's ejection fraction is significantly decreased, although better from an echo done a year ago that we have. There may be other echo in Dr. Bagley's office, unavailable to me at this time. The patient is clinically improved with rate control, but ultimately I think he would benefit from cardioversion and yazdanism of normal sinus rhythm. The patient has not been on anticoagulation but has a Watchman. I will tentatively set him up for cardioversion in the morning DIVYA guided as there is some risk of clot formation. At this point, with the addition of digoxin, I am not going to recommend additional amiodarone and I think his current medical management for rate control is appropriate. With respect to the patient's coronary artery disease and mild elevation of troponins, they are quite even and he is not having anginal symptoms. The elevated troponins could be on the basis of his atrial fibrillation or demand ischemia or a combination. If he has not had a recent stress test through Dr. Bagley's office, this could be considered non-urgently but I do not recommend going directly to an invasive protocol. Additional recommendations will be made pending response to cardioversion and obtaining additional records and coordinating with Dr. Bagley. [id number]/[facility] #: [id number] JANEY
[2018-04-21] MEDS: Metoprolol Tartrate TAB* 25 MG PO SCH ×3 (05:43→17:15)
[2018-04-21 06:45] LABS: ABS Basophils 0.1 10^3/ul (0-0.2); ABS Eosinophils 0.3 10^3/ul (0-0.6); ABS Lymphocytes 1.5 10^3/ul (1.0-4.8); ABS Monocytes 0.7 10^3/ul (0-0.8); ABS Neutrophils 3.8 10^3/ul (1.5-7.7); ABS Nucleated RBC 0 10^3/ul; Eosinophil % 4.9 % (0-6); Hematocrit 39 % (42-52); Hemoglobin 13.2 g/dl (14.0-18.0); Mean Corpuscular HGB Conc 34 g/dl (31-36); Mean Corpuscular Hemoglobin 32 pg (27-31); Mean Corpuscular Volume 93 fL (80-94); Mean Platelet Volume 7.8 fL (7.4-10.4); Nucleated Red Blood Cells % 0.1; Platelet Count 221 10^3/ul (150-450); Red Blood Count 4.18 10^6/ul (4.00-5.40); Red Cell Distribution Width 13 % (10.5-15); White Blood Count 6.4 10^3/ul (3.5-10.8)
[2018-04-21 07:13] LABS: EGFR Non-African American 75.6 (>60)
[2018-04-21] MEDS ORDERED: Naloxone* 0.4 MG/ML 1 ML VIAL ONE (09:03)
[2018-04-21] MEDS ORDERED: fentaNYL* 50 MCG/ML 2 ML VIAL (100 MCG VIAL) ONE (09:03)
[2018-04-21] MEDS ORDERED: Midazolam* 1 MG/ML 10 ML VIAL (10 MG) ONE (09:03)
[2018-04-21] MEDS ORDERED: Lidocaine 2% VISCOUS* 15 ML UDC ONE (09:04)
[2018-04-21] MEDS ORDERED: Flumazenil* 0.1 MG/ML 5 ML MDV ONE (09:04)
[2018-04-21] MEDS: Metoprolol Succinate XL TAB* 50 MG PO SCH (11:46)
[2018-04-21] MEDS: Amiodarone TAB* 200 MG PO SCH (12:03)
[2018-04-21] MEDS: Enoxaparin(*) 40 MG/0.4 ML SYR SUBCUT SCH (12:03)
[2018-04-21] MEDS: Aspirin EC TAB* 81 MG TAB.EC PO SCH (12:04)
[2018-04-21] MEDS: Spironolactone TAB* 25 MG PO SCH (12:04)
[2018-04-21] MEDS: Ramipril CAP* 5 MG PO SCH ×2 (12:04→16:53)
[2018-04-21 15:36] VITALS: BP 113/69
[2018-04-21] MEDS ORDERED: Warfarin TAB(*) 5 MG PO SCH (16:30)
[2018-04-21] MEDS: Digoxin TAB* 0.125 MG PO SCH (17:15)
--- NOTE | 2018-04-23 15:18 | DS ---
DISCHARGE SUMMARY: DATE OF ADMISSION: 04/16/18 DATE OF DISCHARGE: 04/21/18 ADMITTING PROVIDER: Jame Chiu M.D. PRIMARY CARE PHYSICIAN: Dr. Putnam. CONSULTING CARDIOLOGISTS: Dr. Lauryn Saha and Dr. Jose Red OUTPATIENT GROUP FITNESS MANAGER: Dr. Bagley. ATTENDING PHYSICIAN ON DAY OF DISCHARGE: Dr. Flakito Lubin. CHIEF COMPLAINT: Shortness of breath, fatigue. PRINCIPAL DIAGNOSES: 1. Atrial fibrillation with rapid ventricular response. 2. Acute systolic congestive heart failure exacerbation. HISTORY OF PRESENT ILLNESS AND HOSPITAL COURSE: Juan Farah is a 67-year-old male with past medical history of ischemic cardiomyopathy, last known EF 20% to 25%; paroxysmal atrial fibrillation, status post ablation and Watchman device in summer of 2016; coronary artery disease and stents in 2007 ([facility] in 2016 with 40% occlusion of LAD, 30% occlusion distally, and then the diagonal RCA with 20 % occlusion and 40% distal occlusion); Marfan syndrome; bipolar disorder; right ankle deformity secondary to Marfan syndrome that leads to increase the risk of falling (about 1 fall per month); and reported bruising with anticoagulation in the past. Please see H and P of Jame Chiu for full details, but briefly, he and his attested that the patient had been more manic for the 3 days prior to admission and over the 6 weeks prior had been manic on and off. He has been more active and having had less sleep for 2 weeks and it then improved. He has been working on projects around the house, started to feel fatigued and shallow over breath, more dyspnea on exertion with climbing upstairs. He denies chest pain or loss of consciousness. He denies any medication noncompliant. Upon presentation to [facility] emergency room, he was found to be in atrial fibrillation with RVR with 157 beats per minute and received diltiazem 50 mg and started on diltiazem drip, he was admitted for this, and continued on diltiazem drip and eventually beta blockers (metoprolol was increased). He was on admission thought to be an acute systolic heart failure exacerbation. The chest x-ray compatible with vascular congestion, BNP elevated at 648. His course was complicated by hypotension and hypoxic respiratory failure. His amlodipine was stopped and digoxin was added to help control his rate. Dr. Lauryn Saha of Cardiology consulted on the case and recommended DIVYA with potential cardioversion to return him back to normal sinus rhythm as it was thought in the past that his heart failure was disproportion to a degree of coronary artery disease and likely at least partially tachy arrhythmia related. He did get a transthoracic echocardiogram on 04/20/18, which demonstrated ejection fraction of 30% to 35% (with some improvement from prior study) and there was septal flatting of intraventricular septum consistent with right ventricular volume or pressure overload. His estimated diastolic pressure was nondiagnostic left atrium with severely dilated, right ventricular moderately dilated, right atrium mildly dilated. RVSP 22 mmHg, trace to mild tricuspid regurg. The patient underwent DIVYA on 04/21/18 and demonstrated what appeared to be 0.7 x 0.6 cm mass noted on the Watchman device suspicious for thrombus. For that reason, the cardioversion was attempted. Discussions with Dr. Jose Red about potential next steps and it was decided that the patient would be anticoagulated for the next few weeks and plan to follow up with Dr. Bagley was considered if the patient was still in AFib, followup DIVYA with potential cardioversion. Here, he was started on Coumadin, which he tolerated for about 3 years in the past per his report. His beta- blockers were increased. His amiodarone was continued, and after discussion with Dr. Red, his digoxin was not continued upon discharge. He had been able to be weaned down to room air. Of note, he did take 1 dose of 40 IV Lasix on . His weight on discharge was documented as 108.0 kg, max during admission was 111.5 kg. He had 3 troponins that were all 0.07 and was attributed to demand ischemia in the setting of AFib with RVR. The digoxin level was 1.4 on 04/19/18, 1.0 on 04/20/18. Creatinine was 0.99 on the day of discharge, 0.87 on day of admission. DISCHARGE MEDICATIONS: Include: 1. Tylenol 650 mg p.o. q.4 hours p.r.n. 2. Amiodarone 200 mg daily. 3. Aspirin 81 mg daily. 4. Depakote 1500 mg p.o. b.i.d. 5. Metoprolol succinate 100 mg p.o. daily (increased dose from prior). 6. Olanzapine 5 mg p.o. at bedtime. 7. Ramipril 5 mg p.o. daily. 8. Spironolactone 25 mg p.o. daily. 9. Warfarin 5 mg p.o. daily. Changes in medications: Of note, his amlodipine 5 mg daily was stopped. DISCHARGE DIET: Heart healthy, unchanged. ACTIVITY LEVEL: No restrictions other than increased awareness of walking safely to avoid falls. FOLLOWUP: The patient should follow up with Dr. David Putnam within 7 days of discharge and has appointment on 04/26/18 at 3:10 p.m. He should follow up with Dr. Wale Bagley within [address] Bagley's office was called on day of admission to give updates on the situation. TIME SPENT ON DISCHARGE: Forty five minutes. [id number]/[facility] #: [id number] JANEY
== END 2018-04-21 18:18 | disposition home or self-care (01) | DRG 308 ==
LOC: ED 08:03 → ICU 10:55 → MEDTELE 04-18 18:13
PROVIDERS: ADMIT Internal Medicine; ATTEND Internal Medicine
PROC: B24BZZ4 Ultrasonography of Heart with Aorta, Transesophageal (ICD-10-PCS; 2018-04-21)
PROC: 5A2204Z Restoration of Cardiac Rhythm, Single (ICD-10-PCS; principal; 2018-04-21 09:00)
DX: I48.0 Paroxysmal atrial fibrillation (principal); J96.01 Acute respiratory failure with hypoxia; I50.43 Acute on chronic combined systolic (congestive) and diastolic (congestive) heart failure; I24.8 Other forms of acute ischemic heart disease; Q87.40 Marfan syndrome, unspecified; I11.0 Hypertensive heart disease with heart failure; I48.92 Unspecified atrial flutter; I25.5 Ischemic cardiomyopathy; I25.10 Atherosclerotic heart disease of native coronary artery without angina pectoris; E78.00 Pure hypercholesterolemia, unspecified; Z96.1 Presence of intraocular lens; F40.01 Agoraphobia with panic disorder; E78.5 Hyperlipidemia, unspecified; F31.9 Bipolar disorder, unspecified; I95.9 Hypotension, unspecified; F90.9 Attention-deficit hyperactivity disorder, unspecified type; R74.8 Abnormal levels of other serum enzymes; I07.1 Rheumatic tricuspid insufficiency; G89.29 Other chronic pain; M19.90 Unspecified osteoarthritis, unspecified site; H53.9 Unspecified visual disturbance; D64.9 Anemia, unspecified; M21.962 Unspecified acquired deformity of left lower leg; Z95.5 Presence of coronary angioplasty implant and graft; Z91.81 History of falling; Z79.82 Long term (current) use of aspirin; Z79.01 Long term (current) use of anticoagulants; Z98.1 Arthrodesis status; Z87.891 Personal history of nicotine dependence; Z86.711 Personal history of pulmonary embolism; Z82.49 Family history of ischemic heart disease and other diseases of the circulatory system; Z80.9 Family history of malignant neoplasm, unspecified; Z23 Encounter for immunization; Z87.820 Personal history of traumatic brain injury
CPT/HCPCS: 36415; 71045; 80048; 80053; 80162; 83605; 83735; 83880; 84436; 84443; 84484; 85025; 85610; 87641; 90686; 90732; 93005; 93306; 93312; 93325; 99156; 99157; 99285; A9270-GY; G8978-GP-CJ; G8979-GP-CI; J1160; J1650; J1940; J2250; J2310; J3010; J3490

== ENCOUNTER 2018-05-22 19:50 | Inpatient (IN) | payer MEDICARE ==
--- OUTSIDE RECORDS SUMMARY | 2018-05-22 20:30 | XMS REPORT ---
:1950 External Reference #:[id number] Author Organization [facility] Address [address] [place] [address] [place] [address] Phone [phone] Care Team Providers Name Role Phone David Putnam III, MD Primary Care Physician Unavailable Payers Type Date Identification Numbers Payment Provider Subscriber Medicare Primary Policy Number: [id number] Medicare Mo Farah PayID: [id number] [address] [place] [address] [facility] Policy Number: [id number] Medicaid Mo Farah PayID: [id number] [address] [place] [address] Problems Date Description Provider Status Onset: 11/01/2015 Cervical spondylosis with myelopathy Kishor Finn M.D. Active Onset: 12/11/2015 Convalescence after surgery Kishor Finn M.D. Active Onset: 02/10/2016 Neck pain Kishor Finn M.D. Active Family History Date Family Member(s) Problem(s) Comments General Heart Disease General Colon Cancer Social History Type Date Description Comments Marital Status Lives With Occupation Retired ETOH Use Rarely consumes alcohol Smoking Patient is a former smoker Quit 2001; smoked for 15 years Recreational Drug Use Denies Drug Use Daily Caffeine Does Not Consume Caffeine Exercise Type/Frequency Exercises sporadically limited due to ankle pain Allergies, Adverse Reactions, Alerts Date Description Reaction Status Severity Comments 03/16/2013 NKDA active 10/31/2015 NKDA active Medications Medication Date Status Form Strength Qnty SIG Indications Ordering Provider Blood Pressure 04/26/ Active Misc 1unit bp machine I10 David Gonzales Monitor 2017 s for home bp Indy Digital/Manual monitoring M.Beverly Inflate Custom Shoe For 01/26/ Active Large shoe M79.671 David Watts 2017 for r foot Indy, to M.Beverly accomodate brace Ibuprofen 08/21/ Active Tablets 600mg 90tab 1 by mouth F31.9 Jame 2016 s three times Itz, a day as M.D. needed Metoprolol / Active Tablets ER 50mg twice daily Unknown Succinate ER 0000 24HR Ramipril / Active Capsules 5mg 1 by mouth Unknown 0000 every day Aspirin Low / Active Chewtabs 81mg 1 by mouth Unknown Strength 0000 every day Spironolactone / Active Tablets 25mg 1 by mouth Unknown 0000 every day Depakote ER / Active Tablets ER 500mg 1 by mouth Unknown 0000 24HR every night at bedtime Amiodarone HCL / Active Tablets 200mg once daily Kevyn 0000 , MD Wale Modafinil / Active Tablets 200mg 1 by mouth Unknown 0000 2 times a day Lorazepam / Active Tablets 1mg 1 at Unknown 0000 bedtime prn Iron Slow / Active Tablets ER 143(45Fe) take one Unknown Release 0000 mg capsule/tab let daily by mouth Amlodipine / Active Tablets 5mg 1 by mouth Unknown Besylate 0000 every day Olanzapine 00/ Active Tablets 5mg 1 po at Unknown 0000 bedtime Warfarin Sodium / Active Tablets 5mg Unknown 0000 Keflex 05/21/ Hx Capsules 500mg 14cap 1 by mouth R31.9 David Gonzales 2016 - s twice a day Indy 06/23/ M.DMercy 2017 Sulfamethoxazole 01/26/ Hx Tablets 800-160mg 20tab 1 by mouth R35.0 David Gonzales /Trimethoprim DS 2016 - twice a day Indy 02/01/ M.DMercy 2016 Hydrocodone-Acet 03/17/ Hx Tablets 5-325mg 60tab cancel M54.2 David Gonzales aminophen 2015 - previous Indy 06/23/ refill from M.DMercy 201704/13/17 Hydrocodone-Acet 02/09/ Hx Tablets 10-325mg 90tab 1 by mouth M54.2 Kishor leong 2015 - s every 6 [place], 03/17/ hours as M.D. 2016 needed pain Tramadol HCL 12/29/ Hx Tablets 50mg 90tab 1 by mouth Z48.89 Kishor 2015 - s every 6 [place], 01/25/ hours as M.D. 2016 needed pain Hydrocodone-Acet 12/13/ Hx Tablets 10-325mg 120ta 1 by mouth Kishor leong 2015 - every 6 [place], 02/09/ hours as M.D. 2015 needed pain Hydrocodone-Acet 12/10/ Hx Tablets 5-325mg 60tab 1-2 by Z48.89 Kishor leong 2015 mouth every [place], hours as M.D. 2015 needed pain [place] 11/09/ Hx Tablets 5-325mg 90tab 1-2 by Kishor 2015 - mouth every [place]uma, hours as M.D. 2015 needed pain Levofloxacin 03/21/ Hx Tablets 750mg 14tab 1 tab by Jacinto 2012 - mouth every , 24 hours M.D. 2012 Levofloxacin 03/21/ Hx Tablets 500mg 14tab 1 po qd Jacinto 2012 - Aidan, 12/17/ M.D. 2016 Cefuroxime / Hx Tablets 500mg 1 by mouth Unknown Axetil 0000 - twice a day 2016 Doxycycline / Hx Capsules 100mg one tablet Unknown Hyclate 0000 - twice daily 2016 Digoxin 00/ Hx Tablets 125mcg 1 by mouth Unknown 0000 - every day 2016 Multaq 00/ Hx Tablets 400mg 1 by mouth Unknown 0000 - twice a day 2016 Xarelto / Hx Tablets 20mg 1 by mouth Unknown 0000 - every day 2016 Hydrocodone-Acet 00/ Hx Tablets 5-325mg 1 by mouth Unknown aminophen 0000 - every 4-6 12/10/ hours prn. 2016 Seroquel 00/ Hx Tablets 50mg take 1 Unknown 0000 - tablet by 02/22/ mouth at 2017 bedtime Warfarin Sodium 00/ Hx Tablets 2mg Wed, Wed, Unknown 0000 - Wednesday. 2016 Warfarin Sodium 00/00/ Hx Tablets 3mg Tues, Unknown 0000 - Thurs, Sat, Wed Cefpodoxime / Hx Tablets 200mg 1 by mouth Unknown Proxetil 0000 - twice a day 2016 Plavix 0000/ Hx Tablets 75mg 1 by mouth Unknown 0000 - every day 2016 Immunizations CPT Code Status Date Vaccine Lot # [id number] Given 01/19/2018 Pneumococcal Conjugate Vaccine 13 Valent For [id number] Intramuscular Use Vital Signs Date Vital Result Comment 04/26/2018 Height 73 inches 6'1" Weight 247.00 lb Heart Rate 86 /min BP Systolic Sitting 112 mmHg BP Diastolic Sitting 74 mmHg O2 % BldC Oximetry 95 % BMI (Body Mass Index) 32.6 kg/m2 02/10/2018 Height 73 inches 6'1" Weight 235.00 lb Heart Rate 69 /min BP Systolic Sitting 122 mmHg BP Diastolic Sitting 78 mmHg O2 % BldC Oximetry 94 % BMI (Body Mass Index) 31.0 kg/m2 01/19/2018 Height 73 inches 6'1" Weight 230.00 lb Heart Rate 65 /min BP Systolic 130 mmHg 142/70 right arm BP Diastolic 64 mmHg 142/70 right arm O2 % BldC Oximetry 95 % BMI (Body Mass Index) 30.3 kg/m2 07/20/2017 Height 73 inches 6'1" Weight 215.00 lb Heart Rate 78 /min BP Systolic 174 mmHg BP Diastolic 110 mmHg Respiratory Rate 16 /min BMI (Body Mass Index) 28.4 kg/m2 06/24/2017 Height 73 inches 6'1" Weight 200.00 lb Heart Rate 72 /min BP Systolic Sitting 134 mmHg BP Diastolic Sitting 94 mmHg Respiratory Rate 16 /min BMI (Body Mass Index) 26.4 kg/m2 05/21/2017 Height 73 inches 6'1" Weight 209.00 lb Heart Rate 82 /min BP Systolic Sitting 166 mmHg 210/130 initially by nurse BP Diastolic Sitting 108 mmHg 210/130 initially by nurse Body Temperature 98.0 F O2 % BldC Oximetry 97 % BMI (Body Mass Index) 27.6 kg/m2 02/23/2017 Height 73 inches 6'1" Weight 206.00 lb with ankle brace Heart Rate 68 /min BP Systolic Sitting 150 mmHg LA reg cuff BP Diastolic Sitting 88 mmHg LA reg cuff BP Systolic Standing 148 mmHg la repeat sitting BP Diastolic Standing 98 mmHg la repeat sitting BMI (Body Mass Index) 27.2 kg/m2 Ejection Fraction 25% echo 12/08/16 01/26/2017 Weight 198.38 lb Heart Rate 66 /min BP Systolic Sitting 134 mmHg BP Diastolic Sitting 70 mmHg Body Temperature 97.9 F O2 % BldC Oximetry 93 % 12/18/2016 Height 74 inches 6'2" Weight 201.38 lb Heart Rate 56 /min BP Systolic 126 mmHg BP Diastolic 70 mmHg Body Temperature 97.5 F O2 % BldC Oximetry 98 % BMI (Body Mass Index) 25.9 kg/m2 08/21/2016 Height 74 inches 6'2" Weight 195.00 lb Heart Rate 64 /min BP Systolic 145 mmHg BP Diastolic 92 mmHg Respiratory Rate 15 /min Pain Level 5 BMI (Body Mass Index) 25.0 kg/m2 03/17/2016 Height 74 inches 6'2" Weight 207.00 lb Heart Rate 82 /min BP Systolic Sitting 140 mmHg BP Diastolic Sitting 80 mmHg Pain Level 4 BMI (Body Mass Index) 26.6 kg/m2 02/10/2016 Height 74 inches 6'2" Weight 215.00 lb Heart Rate 78 /min BP Systolic Sitting 140 mmHg BP Diastolic Sitting 80 mmHg Pain Level 3 BMI (Body Mass Index) 27.6 kg/m2 12/30/2015 Height 74 inches 6'2" Weight 200.00 lb Heart Rate 66 /min BP Systolic Sitting 130 mmHg BP Diastolic Sitting 78 mmHg Pain Level 8 BMI (Body Mass Index) 25.7 kg/m2 12/12/2015 Height 74 inches 6'2" Weight 200.00 lb Pain Level 3 BMI (Body Mass Index) 25.7 kg/m2 12/11/2015 Height 74 inches 6'2" Weight 200.00 lb Heart Rate 72 /min BP Systolic Sitting 118 mmHg BP Diastolic Sitting 74 mmHg Pain Level 2 BMI (Body Mass Index) 25.7 kg/m2 11/18/2015 Height 74 inches 6'2" Weight 200.00 lb Heart Rate 78 /min BP Systolic Sitting 120 mmHg BP Diastolic Sitting 80 mmHg Pain Level 0 BMI (Body Mass Index) 25.7 kg/m2 11/13/2015 Height 74 inches 6'2" Weight 200.00 lb Heart Rate 74 /min BP Systolic 109 mmHg BP Diastolic 71 mmHg BMI (Body Mass Index) 25.7 kg/m2 11/01/2015 Height 74 inches 6'2" Weight 215.00 lb Heart Rate 76 /min BP Systolic Sitting 104 mmHg BP Diastolic Sitting 78 mmHg Pain Level 4 BMI (Body Mass Index) 27.6 kg/m2 11/01/2015 Height 74 inches 6'2" Weight 215.00 lb Heart Rate 68 /min BP Systolic Sitting 128 mmHg BP Diastolic Sitting 94 mmHg Respiratory Rate 14 /min BMI (Body Mass Index) 27.6 kg/m2 10/31/2015 Height 74 inches 6'2" Weight 215.00 lb Heart Rate 72 /min BP Systolic Sitting 118 mmHg BP Diastolic Sitting 78 mmHg Respiratory Rate 14 /min BMI (Body Mass Index) 27.6 kg/m2 03/16/2013 Height 73 inches 6'1" Weight 235.00 lb Heart Rate 85 /min BP Systolic 137 mmHg BP Diastolic 87 mmHg BMI (Body Mass Index) 31.0 kg/m2 Results Test Date Test Result H/L Range Note Protime W/ Inr 04/26/2018 Prothrombin Time 35.6 Inr 3.0 Laboratory test 04/16/2018 Lactic Acid 1.1 mmol/L 0.5-2.0 1 finding Inr/Protime 04/16/2018 Inr 0.92 0.77-1.02 Laboratory test 04/16/2018 B-Type Natriuretic 648 pg/mL High <=100 finding Peptide BNP CBC Auto Diff 04/16/2018 White Blood Count 8.0 10^3/uL 3.5-10.8 Red Blood Count 4.00 10^6/uL 4.00-5.40 Hemoglobin 12.5 g/dL Low 14.0-18.0 Hematocrit 38 % Low 42-52 Mean Corpuscular Volume 95 fL High 80-94 Mean Corpuscular Hemoglobin 31 pg 27-31 Mean Corpuscular HGB Conc 33 g/dL 31-36 Red Cell Distribution Width 14 % 10.5-15 Platelet Count 184 10^3/uL 150-450 Mean Platelet Volume 8.3 fL 7.4-10.4 Abs Neutrophils 5.8 10^3/uL 1.5-7.7 Abs Lymphocytes 1.6 10^3/uL 1.0-4.8 Abs Monocytes 0.4 10^3/uL 0-0.8 Abs Eosinophils 0.2 10^3/uL 0-0.6 Abs Basophils 0.1 10^3/uL 0-0.2 Abs Nucleated RBC 0 10^3/uL Granulocyte % 72.3 % 38-83 Lymphocyte % 19.5 % Low 25-47 Monocyte % 4.6 % 0-7 Eosinophil % 2.8 % 0-6 Basophil % 0.8 % 0-2 Nucleated Red Blood Cells % 0.1 Comp Metabolic Panel 04/16/2018 Sodium 139 mmol/L 135-145 Potassium 4.2 mmol/L 3.5-5.0 Chloride 106 mmol/L 101-111 Co2 Carbon Dioxide 27 mmol/L 22-32 Anion Gap 6 mmol/L 2-11 Glucose 120 mg/dL High 70-100 Blood Urea Nitrogen 29 mg/dL High 6-24 Creatinine 0.87 mg/dL 0.67-1.17 BUN/Creatinine Ratio 33.3 High 8-20 Calcium 9.2 mg/dL 8.6-10.3 Total Protein 6.7 g/dL 6.4-8.9 Albumin 3.8 g/dL 3.2-5.2 Globulin 2.9 g/dL 2-4 Albumin/Globulin Ratio 1.3 1-3 Total Bilirubin 0.40 mg/dL 0.2-1.0 Alkaline Phosphatase 80 U/L 34-104 Alt 18 U/L 7-52 Ast 18 U/L 13-39 Egfr Non- 87.8 >60 Egfr 106.2 >60 2 Laboratory test finding 04/16/2018 Troponin-I (TnI) 0.07 ng/mL High <0.04 3 Thyroxine 6.00 ?g/dL Low 6.09-12.23 TSH (Thyroid Stim Horm) 2.42 mcIU/mL 0.34-5.60 Laboratory test finding 01/05/2018 Valproic Acid (Depakene) 44.0 g/mL Low 50-100 Urinalysis Profile 01/05/2018 Urine Color Yellow Urine Appearance Clear Urine Specific [place] 1.021 1.010-1.030 Urine pH 5.0 5-9 Urine Urobilinogen Negative Negative Urine Ketones Negative Negative Urine Protein Negative Negative Urine Leukocytes Negative Negative Urine Blood Negative Negative Urine Nitrite Negative Negative Urine Bilirubin Negative Negative Urine Glucose Negative Negative Urine Drug SCR 01/05/2018 Amphetamine Ur Screen Presumptive Posi <SEE None Detect 4 [facility] NOTE> Barbiturates Urine Screen None Detected None Detect Benzodiazepine Urine Screen None Detected None Detect Urine Cannabinoids Screen Presumptive Posi <SEE NOTE> None Detect 5 Urine Cocaine Screen None Detected None Detect Urine Opiates Screen None Detected None Detect Urine Phencyclidine Screen None Detected None Detect 6 Laboratory test finding 01/05/2018 Acetaminophen < 15 g/mL 7 Alcohol < 10 mg/dL <10 Salicylate < 2.50 mg/dL <30 Comp Metabolic Panel 01/05/2018 Sodium 140 mmol/L 135-145 Potassium 4.3 mmol/L 3.5-5.0 Chloride 104 mmol/L 101-111 Co2 Carbon Dioxide 27 mmol/L 22-32 Anion Gap 9 mmol/L 2-11 Glucose 130 mg/dL High 70-100 Blood Urea Nitrogen 40 mg/dL High 6-24 Creatinine 1.67 mg/dL High 0.67-1.17 BUN/Creatinine Ratio 24.0 High 8-20 Calcium 9.3 mg/dL 8.6-10.3 Total Protein 6.9 g/dL 6.4-8.9 Albumin 4.1 g/dL 3.2-5.2 Globulin 2.8 g/dL 2-4 Albumin/Globulin Ratio 1.5 1-3 Total Bilirubin 0.30 mg/dL 0.2-1.0 Alkaline Phosphatase 79 U/L 34-104 Alt 13 U/L 7-52 Ast 21 U/L 13-39 Egfr Non- 41.4 >60 Egfr 50.1 >60 8 Laboratory test finding 01/05/2018 TSH (Thyroid Stim Horm) 1.98 mcIU/mL 0.34-5.60 CBC Auto Diff 01/05/2018 White Blood Count 6.9 10^3/uL 3.5-10.8 Red Blood Count 3.68 10^6/uL Low 4.00-5.40 Hemoglobin 11.9 g/dL Low 14.0-18.0 Hematocrit 35 % Low 42-52 Mean Corpuscular Volume 94 fL 80-94 Mean Corpuscular Hemoglobin 32 pg High 27-31 Mean Corpuscular HGB Conc 34 g/dL 31-36 Red Cell Distribution Width 14 % 10.5-15 Platelet Count 223 10^3/uL 150-450 Mean Platelet Volume 7.0 um3 Low 7.4-10.4 Abs Neutrophils 4.5 10^3/uL 1.5-7.7 Abs Lymphocytes 1.7 10^3/uL 1.0-4.8 Abs Monocytes 0.6 10^3/uL 0-0.8 Abs Eosinophils 0.1 10^3/uL 0-0.6 Abs Basophils 0.1 10^3/uL 0-0.2 Abs Nucleated RBC 0 10^3/uL Granulocyte % 64.3 % 38-83 Lymphocyte % 24.9 % Low 25-47 Monocyte % 8.2 % High 0-7 Eosinophil % 1.3 % 0-6 Basophil % 1.3 % 0-2 Nucleated Red Blood Cells % 0.1 Laboratory test finding 12/29/2017 Valproic Acid (Depakene) 16.0 g/mL Low 50-100 Lipid Profile 12/29/2017 Triglycerides 45 mg/dL 9 (Trig/Chol/HDL) Cholesterol 219 mg/dL 10 HDL Cholesterol 79.7 mg/dL 11 LDL Cholesterol 130 mg/dL 12 Urine Drug SCR 12/29/2017 Amphetamine Ur Screen Presumptive Posi None Detect 13 [facility] <SEE NOTE> Barbiturates Urine Screen None Detected None Detect Benzodiazepine Urine Screen None Detected None Detect Urine Cannabinoids Screen Presumptive Posi <SEE NOTE> None Detect 14 Urine Cocaine Screen None Detected None Detect Urine Opiates Screen None Detected None Detect Urine Phencyclidine Screen None Detected None Detect 15 Laboratory test finding 12/29/2017 TSH (Thyroid Stim Horm) 1.08 mcIU/mL 0.34-5.60 Acetaminophen < 15 g/mL 16 Alcohol < 10 mg/dL <10 Salicylate 6.00 mg/dL <30 Comp Metabolic Panel 12/29/2017 Sodium 137 mmol/L 135-145 Potassium 4.3 mmol/L 3.5-5.0 Chloride 99 mmol/L Low 101-111 Co2 Carbon Dioxide 27 mmol/L 22-32 Anion Gap 11 mmol/L 2-11 Glucose 145 mg/dL High 70-100 Blood Urea Nitrogen 38 mg/dL High 6-24 Creatinine 1.77 mg/dL High 0.67-1.17 BUN/Creatinine Ratio 21.5 High 8-20 Calcium 9.9 mg/dL 8.6-10.3 Total Protein 7.7 g/dL 6.4-8.9 Albumin 4.5 g/dL 3.2-5.2 Globulin 3.2 g/dL 2-4 Albumin/Globulin Ratio 1.4 1-3 Total Bilirubin 0.70 mg/dL 0.2-1.0 Alkaline Phosphatase 84 U/L 34-104 Alt 14 U/L 7-52 Ast 23 U/L 13-39 Egfr Non- 38.7 >60 Egfr 46.8 >60 17 CBC Auto Diff 12/29/2017 White Blood Count 9.5 10^3/uL 3.5-10.8 Red Blood Count 3.96 10^6/uL Low 4.00-5.40 Hemoglobin 12.7 g/dL Low 14.0-18.0 Hematocrit 37 % Low 42-52 Mean Corpuscular Volume 94 fL 80-94 Mean Corpuscular Hemoglobin 32 pg High 27-31 Mean Corpuscular HGB Conc 34 g/dL 31-36 Red Cell Distribution Width 14 % 10.5-15 Platelet Count 256 10^3/uL 150-450 Mean Platelet Volume 7.1 um3 Low 7.4-10.4 Abs Neutrophils 7.4 10^3/uL 1.5-7.7 Abs Lymphocytes 1.5 10^3/uL 1.0-4.8 Abs Monocytes 0.6 10^3/uL 0-0.8 Abs Eosinophils 0 10^3/uL 0-0.6 Abs Basophils 0 10^3/uL 0-0.2 Abs Nucleated RBC 0 10^3/uL Granulocyte % 77.4 % 38-83 Lymphocyte % 16.0 % Low 25-47 Monocyte % 6.1 % 0-7 Eosinophil % 0.1 % 0-6 Basophil % 0.4 % 0-2 Nucleated Red Blood Cells % 0.1 Urinalysis Profile 12/29/2017 Urine Color Yellow Urine Appearance Clear Urine Specific [place] 1.026 1.010-1.030 Urine pH 5.0 5-9 Urine Urobilinogen Negative Negative Urine Ketones Negative Negative Urine Protein Negative Negative Urine Leukocytes Negative Negative Urine Blood Negative Negative Urine Nitrite Negative Negative Urine Bilirubin Negative Negative Urine Glucose Negative Negative CBC Auto Diff 12/15/2017 White Blood Count 8.5 10^3/uL 3.5-10.8 Red Blood Count 3.92 10^6/uL Low 4.00-5.40 Hemoglobin 12.9 g/dL Low 14.0-18.0 Hematocrit 37 % Low 42-52 Mean Corpuscular Volume 95 fL High 80-94 Mean Corpuscular Hemoglobin 33 pg High 27-31 Mean Corpuscular HGB Conc 35 g/dL 31-36 Red Cell Distribution Width 14 % 10.5-15 Platelet Count 215 10^3/uL 150-450 Mean Platelet Volume 7.5 um3 7.4-10.4 Abs Neutrophils 6.0 10^3/uL 1.5-7.7 Abs Lymphocytes 1.6 10^3/uL 1.0-4.8 Abs Monocytes 0.7 10^3/uL 0-0.8 Abs Eosinophils 0.1 10^3/uL 0-0.6 Abs Basophils 0.1 10^3/uL 0-0.2 Abs Nucleated RBC 0 10^3/uL Granulocyte % 70.6 % 38-83 Lymphocyte % 19.1 % Low 25-47 Monocyte % 8.4 % High 0-7 Eosinophil % 1.2 % 0-6 Basophil % 0.7 % 0-2 Nucleated Red Blood Cells % 0.1 Comp Metabolic Panel 12/15/2017 Sodium 139 mmol/L 135-145 Potassium 3.7 mmol/L 3.5-5.0 Chloride 102 mmol/L 101-111 Co2 Carbon Dioxide 29 mmol/L 22-32 Anion Gap 8 mmol/L 2-11 Glucose 98 mg/dL 70-100 Blood Urea Nitrogen 21 mg/dL 6-24 Creatinine 1.16 mg/dL 0.67-1.17 BUN/Creatinine Ratio 18.1 8-20 Calcium 9.1 mg/dL 8.6-10.3 Total Protein 7.0 g/dL 6.4-8.9 Albumin 3.9 g/dL 3.2-5.2 Globulin 3.1 g/dL 2-4 Albumin/Globulin Ratio 1.3 1-3 Total Bilirubin 0.30 mg/dL 0.2-1.0 Alkaline Phosphatase 84 U/L 34-104 Alt 9 U/L 7-52 Ast 15 U/L 13-39 Egfr Non- 63.0 >60 Egfr 76.2 >60 18 Laboratory test finding 12/15/2017 Lactic Acid 0.8 mmol/L 0.5-2.0 19 Blood Culture SEE RESULT BELOW 20 CBC Auto Diff 11/23/2017 White Blood Count 8.7 10^3/uL 3.5-10.8 Red Blood Count 3.86 10^6/uL Low 4.00-5.40 Hemoglobin 12.5 g/dL Low 14.0-18.0 Hematocrit 38 % Low 42-52 Mean Corpuscular Volume 97 fL High 80-94 Mean Corpuscular Hemoglobin 32 pg High 27-31 Mean Corpuscular HGB Conc 33 g/dL 31-36 Red Cell Distribution Width 14 % 10.5-15 Platelet Count 204 10^3/uL 150-450 Mean Platelet Volume 8.3 um3 7.4-10.4 Abs Neutrophils 5.8 10^3/uL 1.5-7.7 Abs Lymphocytes 2.1 10^3/uL 1.0-4.8 Abs Monocytes 0.6 10^3/uL 0-0.8 Abs Eosinophils 0.1 10^3/uL 0-0.6 Abs Basophils 0.1 10^3/uL 0-0.2 Abs Nucleated RBC 0 10^3/uL Granulocyte % 66.7 % 38-83 Lymphocyte % 24.5 % Low 25-47 Monocyte % 6.9 % 0-7 Eosinophil % 1.0 % 0-6 Basophil % 0.9 % 0-2 Nucleated Red Blood Cells % 0 Comp Metabolic Panel 11/23/2017 Sodium 140 mmol/L 139-145 Potassium 4.1 mmol/L 3.5-5.0 Chloride 104 mmol/L 101-111 Co2 Carbon Dioxide 29 mmol/L 22-32 Anion Gap 7 mmol/L 2-11 Glucose 123 mg/dL High 70-100 Blood Urea Nitrogen 26 mg/dL High 6-24 Creatinine 1.22 mg/dL High 0.67-1.17 BUN/Creatinine Ratio 21.3 High 8-20 Calcium 9.9 mg/dL 8.6-10.3 Total Protein 7.7 g/dL 6.4-8.9 Albumin 4.4 g/dL 3.2-5.2 Globulin 3.3 g/dL 2-4 Albumin/Globulin Ratio 1.3 1-3 Total Bilirubin 0.50 mg/dL 0.2-1.0 Alkaline Phosphatase 93 U/L 34-104 Alt 22 U/L 7-52 Ast 32 U/L 13-39 Egfr Non- 59.4 >60 Egfr 76.4 >60 21 Laboratory test finding 11/23/2017 Acetaminophen < 15 g/mL 22 Alcohol < 10 mg/dL <10 Salicylate < 2.50 mg/dL <30 TSH (Thyroid Stim Horm) 0.88 mcIU/mL 0.34-5.60 Valproic Acid (Depakene) 90.0 g/mL 50-100 Urine Drug SCR ED & 10/23/2017 Amphetamine Ur Screen None Detected None Detect Pain Clinic Barbiturates Urine Screen None Detected None Detect Benzodiazepine Urine Screen None Detected None Detect Urine Cannabinoids Screen Presumptive Posi <SEE NOTE> None Detect 23 Urine Cocaine Screen None Detected None Detect Urine Opiates Screen None Detected None Detect Urine Phencyclidine Screen None Detected None Detect 24 Urinalysis Profile 10/23/2017 Urine Color Yellow Urine Appearance Clear Urine Specific [place] 1.018 1.010-1.030 Urine pH 5.0 5-9 Urine Urobilinogen Positive Negative Urine Ketones Trace Negative Urine Protein Negative Negative Urine Leukocytes Negative Negative Urine Blood Negative Negative Urine Nitrite Negative Negative Urine Bilirubin Negative Negative Urine Glucose Negative Negative Laboratory test finding 10/23/2017 Valproic Acid (Depakene) 13.0 g/mL Low 50-100 Acetaminophen < 15 g/mL 25 Alcohol < 10 mg/dL <10 Salicylate < 2.50 mg/dL <30 TSH (Thyroid Stim Horm) 0.81 mcIU/mL 0.34-5.60 Comp Metabolic Panel 10/23/2017 Sodium 135 mmol/L Low 139-145 Potassium 3.9 mmol/L 3.5-5.0 Chloride 102 mmol/L 101-111 Co2 Carbon Dioxide 26 mmol/L 22-32 Anion Gap 7 mmol/L 2-11 Glucose 86 mg/dL 70-100 Blood Urea Nitrogen 44 mg/dL High 6-24 Creatinine 1.63 mg/dL High 0.67-1.17 BUN/Creatinine Ratio 27.0 High 8-20 Calcium 9.8 mg/dL 8.6-10.3 Total Protein 8.0 g/dL 6.4-8.9 Albumin 4.6 g/dL 3.2-5.2 Globulin 3.4 g/dL 2-4 Albumin/Globulin Ratio 1.4 1-3 Total Bilirubin 1.20 mg/dL High 0.2-1.0 Alkaline Phosphatase 106 U/L High 34-104 Alt 35 U/L 7-52 Ast 114 U/L High 13-39 Egfr Non- 42.5 >60 Egfr 54.7 >60 26 CBC Auto Diff 10/23/2017 White Blood Count 7.6 10^3/uL 3.5-10.8 Red Blood Count 4.01 10^6/uL 4.0-5.4 Hemoglobin 12.7 g/dL Low 14.0-18.0 Hematocrit 38 % Low 42-52 Mean Corpuscular Volume 95 fL High 80-94 Mean Corpuscular Hemoglobin 32 pg High 27-31 Mean Corpuscular HGB Conc 34 g/dL 31-36 Red Cell Distribution Width 14 % 10.5-15 Platelet Count 211 10^3/uL 150-450 Mean Platelet Volume 8.4 um3 7.4-10.4 Abs Neutrophils 4.5 10^3/uL 1.5-7.7 Abs Lymphocytes 2.1 10^3/uL 1.0-4.8 Abs Monocytes 0.8 10^3/uL 0-0.8 Abs Eosinophils 0.1 10^3/uL 0-0.6 Abs Basophils 0.1 10^3/uL 0-0.2 Abs Nucleated RBC 0 10^3/uL Granulocyte % 60.2 % 38-83 Lymphocyte % 27.5 % 25-47 Monocyte % 10.2 % High 0-7 Eosinophil % 1.0 % 0-6 Basophil % 1.1 % 0-2 Nucleated Red Blood Cells % 0.1 Basic Metabolic Panel 10/23/2017 Sodium 140 mmol/L 139-145 Potassium 3.8 mmol/L 3.5-5.0 Chloride 105 mmol/L 101-111 Co2 Carbon Dioxide 28 mmol/L 22-32 Anion Gap 7 mmol/L 2-11 Glucose 78 mg/dL 70-100 Blood Urea Nitrogen 36 mg/dL High 6-24 Creatinine 1.49 mg/dL High 0.67-1.17 BUN/Creatinine Ratio 24.2 High 8-20 Calcium 8.6 mg/dL 8.6-10.3 Egfr Non- 47.2 >60 Egfr 60.7 >60 27 Urine Culture And Sensitivities 05/21/2017 Urine Culture SEE RESULT BELOW 28, 29 Urinalysis Profile 05/21/2017 Urine Color [place] 28 Urine Appearance Turbid 28 Urine Specific [place] 1.024 1.010-1.030 28 Urine pH 5.0 5-9 28 Urine Urobilinogen Negative Negative 28 Urine Ketones Negative Negative 28 Urine Protein 1+(30 mg/dL) Negative 28 Urine Leukocytes 3+ Negative 28 Urine Blood 1+ Negative 28 Urine Nitrite Negative Negative 28 Urine Bilirubin Negative Negative 28 Urine Glucose Negative Negative 28 Urine White Blood Cell 3+(>20/hpf) Absent 28 Urine Red Blood Cell 2+(6-10/hpf) Absent 28 Urine Bacteria 1+ Absent 28 Urine Squamous Epithelial Cell Present Absent 28 Urine Renal Epithelial Cells Present Absent 28 Basic Metabolic Panel 05/21/2017 Sodium 138 mmol/L 133-145 Potassium 4.0 mmol/L 3.5-5.0 Chloride 101 mmol/L 101-111 Co2 Carbon Dioxide 30 mmol/L 22-32 Anion Gap 7 mmol/L 2-11 Glucose 102 mg/dL High 70-100 Blood Urea Nitrogen 20 mg/dL 6-24 Creatinine 1.02 mg/dL 0.67-1.17 BUN/Creatinine Ratio 19.6 8-20 Calcium 9.4 mg/dL 8.6-10.3 Egfr Non- 73.3 >60 Egfr 94.3 >60 30 CBC Auto Diff 05/21/2017 White Blood Count 6.6 10^3/uL 3.5-10.8 Red Blood Count 4.32 10^6/uL 4.0-5.4 Hemoglobin 13.2 g/dL Low 14.0-18.0 Hematocrit 40 % Low 42-52 Mean Corpuscular Volume 91 fL 80-94 Mean Corpuscular Hemoglobin 31 pg 27-31 Mean Corpuscular HGB Conc 33 g/dL 31-36 Red Cell Distribution Width 15 % 10.5-15 Platelet Count 287 10^3/uL 150-450 Mean Platelet Volume 7 um3 Low 7.4-10.4 Abs Neutrophils 5.0 10^3/uL 1.5-7.7 Abs Lymphocytes 1.3 10^3/uL 1.0-4.8 Abs Monocytes 0.4 10^3/uL 0-0.8 Abs Eosinophils 0 10^3/uL 0-0.6 Abs Basophils 0 10^3/uL 0-0.2 Abs Nucleated RBC 0 10^3/uL Granulocyte % 74.7 % 38-83 Lymphocyte % 19.0 % Low 25-47 Monocyte % 5.5 % 1-9 Eosinophil % 0.3 % 0-6 Basophil % 0.5 % 0-2 Nucleated Red Blood Cells % 0.1 Laboratory test 05/21/2017 PSA Diagnostic 5.128 ng/mL High 0-4.000 31 finding Urine Drug SCR ED & 04/12/2017 Amphetamine Ur None Detected None Detect Pain Clinic Screen Barbiturates Urine Screen None Detected None Detect Benzodiazepine Urine Screen None Detected None Detect Urine Cannabinoids Screen Presumptive Posi <SEE NOTE> None Detect 32 Urine Cocaine Screen None Detected None Detect Urine Opiates Screen None Detected None Detect Urine Phencyclidine Screen None Detected None Detect 33 Urinalysis Profile 04/12/2017 Urine Color Marlene Urine Appearance Turbid Urine Specific [place] 1.027 1.010-1.030 Urine pH 5.0 5-9 Urine Urobilinogen Negative Negative Urine Ketones Trace Negative Urine Protein Negative Negative Urine Leukocytes Negative Negative Urine Blood Negative Negative * * Negative 34 Urine Nitrite Negative Negative Urine Bilirubin Negative Negative Urine Glucose 1+(50 mg/dL) Negative CBC Auto Diff 04/11/2017 White Blood Count 6.8 10^3/uL 3.5-10.8 Red Blood Count 3.98 10^6/uL Low 4.0-5.4 Hemoglobin 12.2 g/dL Low 14.0-18.0 Hematocrit 37 % Low 42-52 Mean Corpuscular Volume 92 fL 80-94 Mean Corpuscular Hemoglobin 31 pg 27-31 Mean Corpuscular HGB Conc 33 g/dL 31-36 Red Cell Distribution Width 16 % High 10.5-15 Platelet Count 193 10^3/uL 150-450 Mean Platelet Volume 8 um3 7.4-10.4 Abs Neutrophils 4.3 10^3/uL 1.5-7.7 Abs Lymphocytes 1.5 10^3/uL 1.0-4.8 Abs Monocytes 0.7 10^3/uL 0-0.8 Abs Eosinophils 0.2 10^3/uL 0-0.6 Abs Basophils 0 10^3/uL 0-0.2 Abs Nucleated RBC 0 10^3/uL Granulocyte % 63.6 % 38-83 Lymphocyte % 22.4 % Low 25-47 Monocyte % 9.9 % High 1-9 Eosinophil % 3.4 % 0-6 Basophil % 0.7 % 0-2 Nucleated Red Blood Cells % 0 Comp Metabolic Panel 04/11/2017 Sodium 144 mmol/L 133-145 Potassium 4.1 mmol/L 3.5-5.0 Chloride 107 mmol/L 101-111 Co2 Carbon Dioxide 29 mmol/L 22-32 Anion Gap 8 mmol/L 2-11 Glucose 102 mg/dL High 70-100 Blood Urea Nitrogen 42 mg/dL High 6-24 Creatinine 1.39 mg/dL High 0.67-1.17 BUN/Creatinine Ratio 30.2 High 8-20 Calcium 9.4 mg/dL 8.6-10.3 Total Protein 7.5 g/dL 6.4-8.9 Albumin 4.2 g/dL 3.2-5.2 Globulin 3.3 g/dL 2-4 Albumin/Globulin Ratio 1.3 1-3 Total Bilirubin 0.40 mg/dL 0.2-1.0 Alkaline Phosphatase 104 U/L 34-104 Alt 11 U/L 7-52 Ast 31 U/L 13-39 Egfr Non- 51.3 >60 Egfr 66.0 >60 35 Laboratory test finding 04/11/2017 Acetaminophen < 15 g/mL 36 Alcohol < 10 mg/dL <10 Salicylate < 2.50 mg/dL <30 TSH (Thyroid Stim Horm) 0.78 mcIU/mL 0.34-5.60 Valproic Acid (Depakene) 95.0 g/mL 50-100 Laboratory test 01/29/2017 B-Type Natriuretic 135 pg/mL High 37 finding Peptide BNP Inr/Protime 01/29/2017 Inr 2.64 High 0.89-1.11 Laboratory test 01/29/2017 Partial Thrombo Time 36.9 seconds High 26.0- 36.3 finding PTT CBC Auto Diff 01/29/2017 White Blood Count 6.4 10^3/uL 3.5-10.8 Red Blood Count 3.89 10^6/uL Low 4.0-5.4 Hemoglobin 10.8 g/dL Low 14.0-18.0 Hematocrit 33 % Low 42-52 Mean Corpuscular Volume 86 fL 80-94 Mean Corpuscular Hemoglobin 28 pg 27-31 Mean Corpuscular HGB Conc 32 g/dL 31-36 Red Cell Distribution Width 18 % High 10.5-15 Platelet Count 281 10^3/uL 150-450 Mean Platelet Volume 7 um3 Low 7.4-10.4 Abs Neutrophils 3.8 10^3/uL 1.5-7.7 Abs Lymphocytes 1.7 10^3/uL 1.0-4.8 Abs Monocytes 0.6 10^3/uL 0-0.8 Abs Eosinophils 0.3 10^3/uL 0-0.6 Abs Basophils 0.1 10^3/uL 0-0.2 Abs Nucleated RBC 0 10^3/uL Granulocyte % 59.5 % 38-83 Lymphocyte % 25.9 % 25-47 Monocyte % 8.7 % 1-9 Eosinophil % 4.9 % 0-6 Basophil % 1.0 % 0-2 Nucleated Red Blood Cells % 0 Comp Metabolic Panel 01/29/2017 Sodium 134 mmol/L 133-145 Chloride 103 mmol/L 101-111 Co2 Carbon Dioxide 26 mmol/L 22-32 Glucose 83 mg/dL 70-100 Blood Urea Nitrogen 20 mg/dL 6-24 Creatinine 1.13 mg/dL 0.67-1.17 BUN/Creatinine Ratio 17.7 8-20 Calcium 8.7 mg/dL 8.6-10.3 Total Protein 7.2 g/dL 6.4-8.9 Albumin 3.6 g/dL 3.2-5.2 Globulin 3.6 g/dL 2-4 Albumin/Globulin Ratio 1.0 1-3 Total Bilirubin 0.30 mg/dL 0.2-1.0 Alkaline Phosphatase 77 U/L 34-104 Alt 8 U/L 7-52 Egfr Non- 65.1 >60 Egfr 83.8 >60 38 Potassium TNP mmol/L 3.5-5.0 39 Anion Gap 5 mmol/L 2-11 Ast TNP U/L 13-39 40 Laboratory test finding 01/29/2017 Troponin-I (TnI) 0.03 ng/mL <0.04 Magnesium TNP mg/dL 1.9-2.7 41 Valproic Acid (Depakene) 33.0 g/mL Low 50-100 Urine Culture And 01/28/2017 Urine Culture SEE RESULT BELOW 42 Sensitivities Ua Routine 01/26/2017 Ua Specific [place] 1.020 Ua PH 5 Ua Color yellow Ua Appera cloudy Ua WBC 2 + Ua Protein 100 Ua Glucose Neg Ua Ketones Pos Ua Bilirubin Neg Ua Urobilinogen Neg Ua Nitrite Pos Ua Occult Blood xlg Inr/Protime 01/12/2017 Inr 2.62 High 0.89-1.11 CBC Auto Diff 12/18/2016 White Blood Count 9.2 10^3/uL 3.5-10.8 Red Blood Count 3.83 10^6/uL Low 4.0-5.4 Hemoglobin 10.7 g/dL Low 14.0-18.0 Hematocrit 33 % Low 42-52 Mean Corpuscular Volume 87 fL 80-94 Mean Corpuscular Hemoglobin 28 pg 27-31 Mean Corpuscular HGB Conc 32 g/dL 31-36 Red Cell Distribution Width 16 % High 10.5-15 Platelet Count 386 10^3/uL 150-450 Mean Platelet Volume 8 um3 7.4-10.4 Abs Neutrophils 6.5 10^3/uL 1.5-7.7 Abs Lymphocytes 1.6 10^3/uL 1.0-4.8 Abs Monocytes 0.7 10^3/uL 0-0.8 Abs Eosinophils 0.3 10^3/uL 0-0.6 Abs Basophils 0.1 10^3/uL 0-0.2 Abs Nucleated RBC 0.01 10^3/uL Granulocyte % 70.4 % 38-83 Lymphocyte % 17.8 % Low 25-47 Monocyte % 8.0 % 1-9 Eosinophil % 2.8 % 0-6 Basophil % 1.0 % 0-2 Nucleated Red Blood Cells % 0.2 Laboratory test finding 12/18/2016 Ferritin 34.1 ng/mL 24-336 Iron & Iron Binding Capacity 12/18/2016 Iron 43 g/dL Low 50-212 Unsaturated Iron Binding 429 g/dL Total Iron Binding Capacity 472 g/dL High 250-450 % Iron Saturation 9 % Low 15-55 Laboratory test finding 12/18/2016 PSA Screening 3.481 ng/mL 0-4.000 43 Urinalysis Profile 12/18/2016 Urine Color Yellow Urine Appearance Cloudy Urine Specific [place] 1.018 1.010-1.030 Urine pH 6.0 5-9 Urine Urobilinogen Negative Negative Urine Ketones Negative Negative Urine Protein 1+(30 mg/dL) Negative Urine Leukocytes 3+ Negative Urine Blood 1+ Negative Urine Nitrite Positive Negative Urine Bilirubin Negative Negative Urine Glucose Negative Negative Urine White Blood Cell 3+(>20/hpf) Absent Urine Red Blood Cell 2+(6-10/hpf) Absent Urine Bacteria 1+ Absent Urine Squamous Epithelial Cell Present Absent Urine Culture And 12/18/2016 Urine Culture SEE RESULT BELOW 44 Sensitivities Xray 08/21/2016 Ankle Right 3+VWS <pending> CBC No Diff 11/04/2015 White Blood Count 7.0 10^3/uL 3.5-10.8 Red Blood Count 4.93 10^6/uL 4.0-5.4 Hemoglobin 14.9 g/dL 14.0-18.0 Hematocrit 45 % 42-52 Mean Corpuscular Volume 91 fL 80-94 Mean Corpuscular Hemoglobin 30 pg 27-31 Mean Corpuscular HGB Conc 33 g/dL 31-36 Red Cell Distribution Width 14 % 10.5-15 Platelet Count 246 10^3/uL 150-450 Mean Platelet Volume 8 um3 7.4-10.4 Basic Metabolic Panel 11/04/2015 Sodium 137 mmol/L 133-145 Potassium 4.5 mmol/L 3.5-5.0 Chloride 101 mmol/L 101-111 Co2 Carbon Dioxide 30 mmol/L 22-32 Anion Gap 6 mmol/L 2-11 Glucose 94 mg/dL 70-100 Blood Urea Nitrogen 25 mg/dL High 6-24 Creatinine 1.28 mg/dL High 0.67-1.17 BUN/Creatinine Ratio 19.5 8-20 Calcium 10.3 mg/dL 8.6-10.3 Egfr Non- 56.6 >60 Egfr 72.8 >60 45 Laboratory test finding 10/31/2015 Creatine Kinase(CK) 66 U/L 10-223 Connective Tissue Panel 10/31/2015 Anti-Nuclear Antibody 0.5 U 46 Cyclic Citrullinated Peptide <15.6 U 47 Interpretation See Comment 48 Laboratory test finding 10/31/2015 TSH (Thyroid Stim Horm) 1.47 ?IU/mL 0.34-5.60 Free T4 (Free Thyroxine) 0.93 ng/dL 0.61-1.12 Vitamin B12 270 pg/mL 180-914 49 Folic Acid (Folate) 16.85 ng/mL >3.99 Methylmalonic Acid Mma 1.68 nmol/mL <=0.40 50 1 [facility] Severe Sepsis and Septic Shock Management Bundle Measure requires all lactic acids initially measuring >2.0 mmol/L be repeated. 2 Because ethnic data is not always readily available, this report includes an eGFR for both -Americans and non- Americans. The National Kidney Disease Education Program (NKDEP) does not endorse the use of the MDRD equation for patients that are not between the ages of 18 and 70, are , have extremes of body size, muscle mass, or nutritional status, or are non- or non-. According to the National Kidney Foundation, irrespective of diagnosis, the stage of the disease is based on the level of kidney function: Stage Description GFR(mL/min/1.73 m(2)) 1 Kidney damage with normal or decreased GFR 90 2 Kidney damage with mild decrease in GFR 60-89 3 Moderate decrease in GFR 30-59 4 Severe decrease in GFR 15-29 5 Kidney failure <15 (or dialysis) 3 Result TnIDx:0.07 Called to [id number] at: 09:20:44 by:[id number] Read back by: [id number] 4 Presumptive Positive Presumptive positive results are unconfirmed. 5 Presumptive Positive Presumptive positive results are unconfirmed. 6 The urine specimen was tested at the listed cutoffs: Drug class test level (ng/mL) Amphetamines 500 Barbiturates 200 Benzodiazepine metabolites 200 Cocaine metabolites 150 Cannabinoids 50 Opiates 300 Pcp 25 Specimen was received without chain of custody. Results should be used for medical purposes only. 7 Therapeutic concentration: <50 ug/mL Toxic concentration: >120 ug/mL 8 Because ethnic data is not always readily available, this report includes an eGFR for both -Americans and non- Americans. The National Kidney Disease Education Program (NKDEP) does not endorse the use of the MDRD equation for patients that are not between the ages of 18 and 70, are , have extremes of body size, muscle mass, or nutritional status, or are non- or non-. According to the National Kidney Foundation, irrespective of diagnosis, the stage of the disease is based on the level of kidney function: Stage Description GFR(mL/min/1.73 m(2)) 1 Kidney damage with normal or decreased GFR 90 2 Kidney damage with mild decrease in GFR 60-89 3 Moderate decrease in GFR 30-59 4 Severe decrease in GFR 15-29 5 Kidney failure <15 (or dialysis) 9 Desirable: <150 Borderline High: 150-199 High: 200-499 Very High: >500 10 Desirable: <200 Borderline High: 200-239 High: >239 11 Low: <40 Desirable: 40-60 High: >60 12 Desirable: <100 Near Optimal: 100-129 Borderline High: 130-159 High: 160-189 Very High: >189 13 Presumptive Positive Presumptive positive results are unconfirmed. 14 Presumptive Positive Presumptive positive results are unconfirmed. 15 The urine specimen was tested at the listed cutoffs: Drug class test level (ng/mL) Amphetamines 500 Barbiturates 200 Benzodiazepine metabolites 200 Cocaine metabolites 150 Cannabinoids 50 Opiates 300 Pcp 25 Specimen was received without chain of custody. Results should be used for medical purposes only. 16 Therapeutic concentration: <50 ug/mL Toxic concentration: >120 ug/mL 17 Because ethnic data is not always readily available, this report includes an eGFR for both -Americans and non- Americans. The National Kidney Disease Education Program (NKDEP) does not endorse the use of the MDRD equation for patients that are not between the ages of 18 and 70, are , have extremes of body size, muscle mass, or nutritional status, or are non- or non-. According to the National Kidney Foundation, irrespective of diagnosis, the stage of the disease is based on the level of kidney function: Stage Description GFR(mL/min/1.73 m(2)) 1 Kidney damage with normal or decreased GFR 90 2 Kidney damage with mild decrease in GFR 60-89 3 Moderate decrease in GFR 30-59 4 Severe decrease in GFR 15-29 5 Kidney failure <15 (or dialysis) 18 Because ethnic data is not always readily available, this report includes an eGFR for both -Americans and non- Americans. The National Kidney Disease Education Program (NKDEP) does not endorse the use of the MDRD equation for patients that are not between the ages of 18 and 70, are , have extremes of body size, muscle mass, or nutritional status, or are non- or non-. According to the National Kidney Foundation, irrespective of diagnosis, the stage of the disease is based on the level of kidney function: Stage Description GFR(mL/min/1.73 m(2)) 1 Kidney damage with normal or decreased GFR 90 2 Kidney damage with mild decrease in GFR 60-89 3 Moderate decrease in GFR 30-59 4 Severe decrease in GFR 15-29 5 Kidney failure <15 (or dialysis) 19 [facility] Severe Sepsis and Septic Shock Management Bundle Measure requires all lactic acids initially measuring >2.0 mmol/L be repeated. 20 SEE RESULT BELOW Name: MO FARAH : [address]: Yonatan Knox MD Acct: [id number] Unit: [id number] AGE: 67 Location: ED Re12/15/17 SEX: M Status: DEP ER SPEC: [id number] MYRANDA: 12/15/[address] [facility] [address]: Sari ACEVEDO REQ: [id number] RECD: 12/15/17 STATUS: JM RUTLEDGE DR: Fred Putnam III, MD _ SOURCE: BLOOD,VENO SPDES: ORDERED: Blood Cult Procedure Result Reported Site Aerobic Culture Bottle Final 12/20/171951 ML No Growth Day 5 Anaerobic Culture Bottle Final 12/20/171951 ML No Growth Day 5 * ML - Main Lab . END OF REPORT DEPARTMENT OF PATHOLOGY, [address] [place] [address] Enrique Amezcua M.D. Director [facility] # [id number] 21 Because ethnic data is not always readily available, this report includes an eGFR for both -Americans and non- Americans. The National Kidney Disease Education Program (NKDEP) does not endorse the use of the MDRD equation for patients that are not between the ages of 18 and 70, are , have extremes of body size, muscle mass, or nutritional status, or are non- or non-. According to the National Kidney Foundation, irrespective of diagnosis, the stage of the disease is based on the level of kidney function: Stage Description GFR(mL/min/1.73 m(2)) 1 Kidney damage with normal or decreased GFR 90 2 Kidney damage with mild decrease in GFR 60-89 3 Moderate decrease in GFR 30-59 4 Severe decrease in GFR 15-29 5 Kidney failure <15 (or dialysis) 22 Therapeutic concentration: <50 ug/mL Toxic concentration: >120 ug/mL 23 Presumptive Positive Presumptive positive results are unconfirmed. 24 The urine specimen was tested at the listed cutoffs: Drug class test level (ng/mL) Amphetamines 500 Barbiturates 200 Benzodiazepine metabolites 200 Cocaine metabolites 150 Cannabinoids 50 Opiates 300 Pcp 25 Specimen was received without chain of custody. Results should be used for medical purposes only. 25 Therapeutic concentration: <50 ug/mL Toxic concentration: >120 ug/mL 26 Because ethnic data is not always readily available, this report includes an eGFR for both -Americans and non- Americans. The National Kidney Disease Education Program (NKDEP) does not endorse the use of the MDRD equation for patients that are not between the ages of 18 and 70, are , have extremes of body size, muscle mass, or nutritional status, or are non- or non-. According to the National Kidney Foundation, irrespective of diagnosis, the stage of the disease is based on the level of kidney function: Stage Description GFR(mL/min/1.73 m(2)) 1 Kidney damage with normal or decreased GFR 90 2 Kidney damage with mild decrease in GFR 60-89 3 Moderate decrease in GFR 30-59 4 Severe decrease in GFR 15-29 5 Kidney failure <15 (or dialysis) 27 Because ethnic data is not always readily available, this report includes an eGFR for both -Americans and non- Americans. The National Kidney Disease Education Program (NKDEP) does not endorse the use of the MDRD equation for patients that are not between the ages of 18 and 70, are , have extremes of body size, muscle mass, or nutritional status, or are non- or non-. According to the National Kidney Foundation, irrespective of diagnosis, the stage of the disease is based on the level of kidney function: Stage Description GFR(mL/min/1.73 m(2)) 1 Kidney damage with normal or decreased GFR 90 2 Kidney damage with mild decrease in GFR 60-89 3 Moderate decrease in GFR 30-59 4 Severe decrease in GFR 15-29 5 Kidney failure <15 (or dialysis) 28 [id number] 29 SEE RESULT BELOW Name: MO FARAH : [address]: David Putnam III, MD Acct: [id number] Unit: [id number] AGE: 66 Location: [facility] Re05/21/17 SEX: M Status: REG REF SPEC: [id number] MYRANDA: 05/21/17-[address] [facility] [address]: David Putnam III, MD REQ: [id number] RECD: 05/21/17 STATUS: COMP _ SOURCE: URINE SPDESC: ORDERED: Urine Culture COMMENTS: [id number] QUERIES: Urine Source: Random Procedure Result Reported Site Urine Culture Final 05/24/17- 0836 ML Organism 1 ENTEROCOCCUS FAECALIS Dike Count >100,000 (Many) CFU/ML 1. ENTEROCOCCUS FAECALIS M.I.C. RX --------- ------ Ampicillin <=2 S Penicillin 4 S Ciprofloxacin <=0.5 S Gentamicin High Level S Levofloxacin 1 S Linezolid 2 S Nitrofurantoin <=16 S * Quinupristin/Dalfopristin 8 R * Streptomycin High Level S Tetracycline >=16 R Tigecycline <=0.12 S Vancomycin 1 S Imipenem-Deduced S * Ampicillin/Sulbactam-Deduced S * These antibiotics are not available in the [facility] Formulary Contact the Microbiology Department for any additional antibiotic reporting. * [facility] - [facility] . END OF REPORT * ML=Testing performed at Main Lab DEPARTMENT OF PATHOLOGY, [address] [place] [address] Enrique Amezcua M.D. Director [facility] # [id number] 30 Because ethnic data is not always readily available, this report includes an eGFR for both -Americans and non- Americans. The National Kidney Disease Education Program (NKDEP) does not endorse the use of the MDRD equation for patients that are not between the ages of 18 and 70, are , have extremes of body size, muscle mass, or nutritional status, or are non- or non-. According to the National Kidney Foundation, irrespective of diagnosis, the stage of the disease is based on the level of kidney function: Stage Description GFR(mL/min/1.73 m(2)) 1 Kidney damage with normal or decreased GFR 90 2 Kidney damage with mild decrease in GFR 60-89 3 Moderate decrease in GFR 30-59 4 Severe decrease in GFR 15-29 5 Kidney failure <15 (or dialysis) 31 Serum levels of PSA measured using the [employer] DXI Hybritech immunoassay should not be interpreted as absolute evidence of the presence or absence of disease. The PSA value should be used in conjunction with other pertinent clinical diagnostic procedures. The values obtained with different assay methods or kits cannot be used interchangeably. 32 Presumptive Positive Presumptive positive results are unconfirmed. 33 The urine specimen was tested at the listed cutoffs: Drug class test level (ng/mL) Amphetamines 500 Barbiturates 200 Benzodiazepine metabolites 200 Cocaine metabolites 150 Cannabinoids 50 Opiates 300 Pcp 25 Specimen was received without chain of custody. Results should be used for medical purposes only. 34 *Ascorbic acid is present which may interfere with detection of blood. 35 Because ethnic data is not always readily available, this report includes an eGFR for both -Americans and non- Americans. The National Kidney Disease Education Program (NKDEP) does not endorse the use of the MDRD equation for patients that are not between the ages of 18 and 70, are , have extremes of body size, muscle mass, or nutritional status, or are non- or non-. According to the National Kidney Foundation, irrespective of diagnosis, the stage of the disease is based on the level of kidney function: Stage Description GFR(mL/min/1.73 m(2)) 1 Kidney damage with normal or decreased GFR 90 2 Kidney damage with mild decrease in GFR 60-89 3 Moderate decrease in GFR 30-59 4 Severe decrease in GFR 15-29 5 Kidney failure <15 (or dialysis) 36 Therapeutic concentration: <50 ug/mL Toxic concentration: >120 ug/mL 37 >100 to <200 pg/mL: likely compensated congestive heart failure (CHF) 200 to 400 pg/mL: likely moderate CHF >400 pg/mL: likely moderate to severe CHF 38 Because ethnic data is not always readily available, this report includes an eGFR for both -Americans and non- Americans. The National Kidney Disease Education Program (NKDEP) does not endorse the use of the MDRD equation for patients that are not between the ages of 18 and 70, are , have extremes of body size, muscle mass, or nutritional status, or are non- or non-. According to the National Kidney Foundation, irrespective of diagnosis, the stage of the disease is based on the level of kidney function: Stage Description GFR(mL/min/1.73 m(2)) 1 Kidney damage with normal or decreased GFR 90 2 Kidney damage with mild decrease in GFR 60-89 3 Moderate decrease in GFR 30-59 4 Severe decrease in GFR 15-29 5 Kidney failure <15 (or dialysis) 39 Specimen hemolyzed, spoke to Nisha for recollect. 40 Specimen hemolyzed, spoke to Nisha for recollect. 41 Specimen hemolyzed, spoke to Nisha for recollect. 42 SEE RESULT BELOW Name: MO FARAH : [address]: David Putnam III, MD Acct: [id number] Unit: [id number] AGE: 66 Location: [facility] Re01/26/17 SEX: M Status: REG REF SPEC: [id number] MYRANDA: 01/26/17-[address] [facility] [address]: David Putnam III, MD REQ: [id number] RECD: 01/26/17 STATUS: COMP _ SOURCE: URINE SPDESC: ORDERED: Urine Culture Procedure Result Reported Site Urine Culture Final 01/30/17- 828 ML Organism 1 ESCHERICHIA COLI Dike Count >100,000 (Many) CFU/ML 1. ESCHERICHIA COLI M.I.C. RX --------- ------ Ampicillin <=2 S Cefazolin <=4 S Cefepime <=1 S Ceftriaxone <=1 S Ciprofloxacin <=0.25 S Gentamicin <=1 S Levofloxacin <=0.12 S Meropenem <=0.25 S Nitrofurantoin <=16 S Tetracycline <=1 S Pipercillin/Tazobactam <=4 S Trimethoprim/Sulfamethoxazole <=20 S Amoxicillin/Clavulanic Acid <=2 S Aztreonam <=1 S Contact the Microbiology Department for any additional antibiotic reporting. * ML - [facility]) . END OF REPORT * ML=Testing performed at Main Lab DEPARTMENT OF PATHOLOGY, [address] [place] [address] Enrique Amezcua M.D. Director [facility] # [id number] 43 Serum levels of PSA measured using the [employer] DXI Hybritech immunoassay should not be interpreted as absolute evidence of the presence or absence of disease. The PSA value should be used in conjunction with other pertinent clinical diagnostic procedures. The values obtained with different assay methods or kits cannot be used interchangeably. 44 SEE RESULT BELOW Name: MO FARAH : [address]: David Putnam III, MD Acct: [id number] Unit: [id number] AGE: 66 Location: [facility] Re12/18/16 SEX: M Status: REG REF SPEC: [id number] MYRANDA: 12/18/16-[address] [facility] [address]: David Putnam III, MD REQ: [id number] RECD: 12/18/16 STATUS: COMP _ SOURCE: URINE SPDESC: ORDERED: Urine Culture Procedure Result Reported Site Urine Culture Final 12/20/16- 0740 ML Organism 1 ESCHERICHIA COLI Dike Count >100,000 (Many) CFU/ML 1. ESCHERICHIA COLI M.I.C. RX --------- ------ Ampicillin <=2 S Cefazolin <=4 S Cefepime <=1 S Ceftriaxone <=1 S Ciprofloxacin <=0.25 S Gentamicin <=1 S Levofloxacin <=0.12 S Meropenem <=0.25 S Nitrofurantoin <=16 S Tetracycline <=1 S Pipercillin/Tazobactam <=4 S Trimethoprim/Sulfamethoxazole <=20 S Amoxicillin/Clavulanic Acid <=2 S Aztreonam <=1 S Contact the Microbiology Department for any additional antibiotic reporting. * ML - MAIN LAB ([facility]) . END OF REPORT * ML=Testing performed at Main Lab DEPARTMENT OF PATHOLOGY, [address] [place] [address] Enrique Amezcua M.D. Director [facility] # [id number] 45 Because ethnic data is not always readily available, this report includes an eGFR for both -Americans and non- Americans. The National Kidney Disease Education Program (NKDEP) does not endorse the use of the MDRD equation for patients that are not between the ages of 18 and 70, are , have extremes of body size, muscle mass, or nutritional status, or are non- or non-. According to the National Kidney Foundation, irrespective of diagnosis, the stage of the disease is based on the level of kidney function: Stage Description GFR(mL/min/1.73 m(2)) 1 Kidney damage with normal or decreased GFR 90 2 Kidney damage with mild decrease in GFR 60-89 3 Moderate decrease in GFR 30-59 4 Severe decrease in GFR 15-29 5 Kidney failure <15 (or dialysis) 46 REFERENCE VALUE <=1.0 (Negative) 47 REFERENCE VALUE <20.0 (Negative) 48 Tests for antibodies to dsDNA and ARACELY antigens are not performed automatically unless the WILFREDO result is > or= 3.0 U. Studies performed at [facility] indicate that positive WILFREDO results <3.0 U are rarely accompanied by positive second order tests. Test Performed by: [address] [id number] [employer]: Garrett Slade II, M.D., Ph.D. 49 Normal Range 180 to 914 Indeterminate Range 145 to 180 Deficient Range <145 50 In this sample, the concentration of methylmalonic acid (MMA) was elevated. This finding is likely related to vitamin B12 deficiency. Test Performed by: [address] [id number] [employer]: Garrett Slade II, M.D., Ph.D. Procedures Date CPT Code Description Status 07/20/2017 01704 Nerve Conduction 07-08 Studies Completed 02/23/2017 52110 EKG Tracing & Interpretation Completed 12/11/2016 14611 EKG, Interpretation Only Completed 12/10/2016 15919 Color Flow Doppler/Interp & Reprt Completed 12/10/2016 50588 Pulse Wave/Continuous-Interp.RPT Completed 12/10/2016 57714 Echocardiography, Transesophageal, Real Time W/Image 2D Completed W/W/O M-M 12/10/2016 74282 EKG, Interpretation Only Completed 12/10/2016 67083 Cardioversion Completed 12/09/2016 45567 Treadmill Interp/Report Only Completed 12/09/2016 64670 Stress Test Supervsn W/Out I/R Completed 12/09/2016 64848 EKG, Interpretation Only Completed 12/08/2016 74872 ECHO Transthorasic Realtime 2D W Doppler & Color Flow Completed Hosp 12/08/2016 12078 EKG, Interpretation Only Completed 04/09/2016 28764 EKG, Interpretation Only Completed 11/07/2015 98956 Laminectomy W/Explor And/Or Decompression W/O Completed Facetectomy Or Exc 11/01/2015 24859 Nerve Conduction 07-08 Studies Completed 09/30/2015 98996 Treadmill Interp/Report Only Completed 09/30/2015 55394 Stress Test Supervsn W/Out I/R Completed 09/27/2015 78625 ECHO Transthorasic Realtime 2D W Doppler & Color Flow Completed Hosp 05/22/2015 94249 ECHO Transthorasic Realtime 2D W Doppler & Color Flow Completed Hosp 05/22/2015 04088 Treadmill Interp/Report Only Completed 05/22/2015 11630 Stress Test Supervsn W/Out I/R Completed 08/29/2014 73022 ECHO Transthorasic Realtime 2D W Doppler & Color Flow Completed Hosp 08/29/2014 86381 EKG, Interpretation Only Completed 03/16/2013 23749 Xray Knee 3 Views Completed 01/03/2013 91807 Color Flow Doppler/Interp & Reprt Completed 01/03/2013 51366 Pulse Wave/Continuous-Interp.RPT Completed 01/03/2013 89568 ECHO Transthorasic Realtime 2D W Doppler & Color Flow Completed Hosp 01/02/2013 15736 Treadmill Interp/Report Only Completed 01/02/2013 86123 Stress Test Supervsn W/Out I/R Completed 01/02/2013 72856 EKG, Interpretation Only Completed Encounters Type Date Location Provider CPT E/M Dx Office Visit 02/10/2018 [facility] Internal Medicine David Putnam, 74596 Z02.89 4:20p - Stepan Martinez Office Visit 01/19/2018 [facility] Internal Medicine David Putnam, 99009 I10 1:00p - Stepan Martinez M79.671 I48.0 F31.9 Z23 E78.00 Office Visit 06/24/2017 11:30a [facility] Antonella Durán, 68083 G56.03 Services Of Justine Martinez Office Visit 05/21/2017 11:20a [facility] Internal Medicine David Putnam, 71340 R31.9 - Stepan Martinez I10 F31.9 Office Visit 03/08/2017 8:13p [facility],jodee Carter, N.PMercy 30659 R41.89 Hospitalists T50.901A F31.9 I10 Office Visit 03/07/2017 8:12p [facility],jodee Carter N.PMercy 77304 R41.89 Hospitalists T50.901A F31.9 Office Visit 03/06/2017 8:11p [facility],jodee Carter N.P. 00013 T50.901A Hospitalists R41.89 I10 F31.9 Office Visit 02/23/2017 2:40p [facility] Rohit Borjas M.D. 07833 R00.1 R42 I48.0 I10 I42.9 Q87.418 I44.4 R94.31 Office Visit 02/01/2017 8:00a [facility], [place] [address] R00.1 Hospitalists N30.00 R42 T44.7x5A Office Visit 01/31/2017 7:59a [facility], [place] [address] R00.1 Hospitalists T44.7x5A R42 I25.5 Office Visit 01/30/2017 7:58a [facility], [place] [address] R00.1 Hospitalists I48.0 I25.5 T44.7x5A Office Visit 01/29/2017 7:56a [facility], Chip oCpe, 72795 R00.1 Hospitaljesus manuel Martinez,[facility] I48.0 T44.7x5A Office Visit 01/26/2017 1:00p [facility] Internal Medicine David Putnam, 14946 M79.671 - Stepan Martinez D64.9 R35.0 Office Visit 12/18/2016 10:40a [facility] Internal Medicine David Putnam, 16551 I48.0 - Stepan Martinez I50.23 Q87.40 I10 D64.9 F31.9 R35.0 Office Visit 12/12/2016 11:36a [facility], [place] [address] I49.8 Hospitalists I50.23 R74.8 I25.10 Office Visit 12/11/2016 11:36a [facility], [place] [address] I49.8 Hospitalists I50.23 R74.8 I25.10 Office Visit 12/11/2016 4:34p [facility] Rohit Borjas M.D. 44433 I48.0 I42.9 Office Visit 12/10/2016 4:33p [facility] Rohit Borjas M.D. 36390 I48.0 I42.9 Office Visit 12/10/2016 11:35a [facility], [place] [address] I49.8 Hospitalists I50.23 R74.8 I25.10 Office Visit 12/09/2016 11:34a [facility], [place], 06585 I49.8 Hospitalists M.DMercy I25.10 R74.8 F31.9 Office Visit 12/09/2016 3:08p [facility] Of Lauryn Saha M.D. 76375 R06.02 Environmental Service Aide I48.0 I42.9 Office Visit 12/08/2016 11:34a [facility], [place], 69698 I49.8 Hospitalists M.DMercy I25.10 R74.8 F31.9 Office Visit 12/07/2016 11:33a [facility], [place], 39504 I49.8 Hospitalists M.DMercy F31.9 I25.10 R74.8 Office Visit 08/21/2016 2:45p [facility] Jame [place], 85872 F31.9 C.M.AMercy Martinez Q87.40 M19.071 Office Visit 04/10/2016 4:12p [facility], Uma Carter N.P. 10686 R42 Hospitalists I25.10 I42.9 F31.9 Office Visit 04/09/2016 3:04p [facility] Kishor [place] 02564 H81.20 Juan Bryant Office Visit 04/09/2016 4:11p [facility], Uma Carter N.PMercy 30850 R42 Hospitalists I25.10 I42.9 F31.9 Office Visit 04/08/2016 3:03p [facility] Kishor Bryant, 05419 H81.20 Juan I10 Q87.40 Office Visit 04/08/2016 4:10p [facility], Jamie Rodriguez, 03387 R42 Hospitalists N.P. I25.10 I42.9 F31.9 Office Visit 03/22/2016 2:15p [facility] Chip Cope, 22916 I48.91 Assoc,pc Hospitalists Juan,FACP R79.89 F30.9 Office Visit 03/21/2016 2:14p [facility] [place], [address] I48.91 Assoc,pc Hospitalists Juan R79.89 F30.9 Office Visit 03/20/2016 2:14p [facility] Assoc,pc Re Bette, 41164 I48.91 Hospitalists MMiguel R79.89 F30.9 Office Visit 03/19/2016 2:13p [facility] Assoc,pc Uma Carter N.P. 74433 I48.91 Hospitalists R79.89 F30.9 Office Visit 03/17/2016 11:15a [facility] Of Janneth Willett PA-C 95208 M54.2 [facility] Office Visit 02/15/2016 4:05p [facility] Assoc,[place] [address] R07.9 Hospitalists I25.10 I48.91 F31.9 Office Visit 02/14/2016 4:05p [facility] [place]oc,[place] [address] R07.9 Hospitalists I48.91 I25.10 F31.9 Office Visit 02/10/2016 10:45a [facility] Kishor Finn M.D. 53039 M54.2 Of [facility] M62.81 Office Visit 12/12/2015 8:30a [facility] Jame [place] 16067 M47.12 Kirk Martinez M62.81 Office Visit 11/13/2015 1:10p [facility] Jame [place] 52334 M19.071 Kirk Martinez M19.071 Office Visit 11/01/2015 2:30p [facility] Kishor Finn 37235 M47.12 Of Justine Martinez Office Visit 11/01/2015 9:00a [facility] Antonella Durán, 79670 M47.12 Services Of Justine Martinez G62.9 Z79.01 Office Visit 10/31/2015 9:00a [facility] Antonella Durán, 20642 M62.81 Services Of Justine Martinez G62.9 Office Visit 10/02/2015 2:46p [facility] 62[address] I48.91 Assoc,pc Hospitalists MARTHA Vu I42.9 F31.9 Office Visit 10/01/2015 2:45p [facility] 39373 I48.91 Assoc,pc Hospitalists MARTHA Vu I42.9 F31.9 Office Visit 09/30/2015 2:45p [facility] 7[address] I48.91 Assoc,pc Hospitalists MARTHA Vu I42.9 F31.9 Office Visit 09/29/2015 4:03p [facility] Of Lauryn Saha M.D. 90393 I48.0 [facility] I25.10 I25.5 Office Visit 09/29/2015 2:44p [facility] Nessalamberto 10742 I48.91 Assoc, Hospitalists MARTHA Vu I42.9 F31.9 Office Visit 09/28/2015 10:59a [facility] Of Lauryn Saha M.D. 87113 I48.1 Environmental Service Aide R79.89 I25.10 I25.5 T46.2x6A Z91.128 Office Visit 09/27/2015 2:42p [facility], Danilo Avina M.D. 73507 I48.91 Hospitalists Office Visit 05/30/2015 11:17a [facility], [place] [address] M79.89 Hospitalists F30.9 L03.119 Office Visit 05/29/2015 11:17a [facility],[place] [address] M79.89 Hospitalists F30.9 L03.119 Office Visit 05/28/2015 11:16a [facility], Jovita Viveros, 07058 M79.89 Hospitalists N.P. F30.9 L03.119 Office Visit 05/23/2015 3:15p [facility] Peyman Bullock, 61147 R94.31 Assoc, Merrill Martinez R07.2 R77.8 F31.10 Office Visit 05/21/2015 3[facility] [place], [address] R07.2 Assoc, Hospitalists Juan R94.31 R77.8 F31.10 Office Visit 08/29/2014 10:16a [facility] Jennifer Larkin, 41977 427.32 Assoc, Hospitalists Juan 428.0 790.6 Office Visit 08/29/2014 8:50a [facility] Rohit Borjas M.D. 16508 428.0 427.32 414.9 759.82 Office Visit 08/28/2014 [facility] 97050 427.32 Assoc, Hospitalists Juan 428.0 790.6 Office Visit 03/16/2013 8:00a [facility] Jacinto Bermudez M.D. 60569 726.69 C.M.A. Office Visit 01/03/2013 7:46a [facility] Assoc, Kishor Holden 23170 786.51 Hospitalists Juan Wagner 414.01 728.89 V11.1 Office Visit 01/02/2013 7:46a [facility], 03229 786.51 Assoc, Merrill Martinez 414.01 728.89 V11.1 Plan of Care 04/26/2018 - David Putnam M.D.I48.0 Paroxysmal atrial fibrillationNew Labs: Inr/OhspoxuY45 Essential (primary) hypertensionNew Medication:Blood Pressure Monitor Digital/Manual Inflate
--- NOTE | 2018-05-22 21:00 | ED ---
Dizziness - HPI Summary HPI Summary: Patient is a 67 y/o M presenting to ED with complaints of dizziness, SOB with exertion, nausea, and confusion. He states Sx onset two days ago. Dizziness is described as feeling "wobbly", states dizziness is constant every time he ambulates. He also reports SOB after "a few steps". Patient's tier lift operator notes that patient has seemed more confused than normal as well. Nausea is endorsed, he states his "vision is off" but notes PMHx of vision "problems". Patient states he took all of his medications today except for his Coumadin. Extensive cardiac Hx is reported. On triage, associated severity is rated 4/10, ambulation is noted to aggravate Sx, nothing is noted to alleviate Sx. Home medications and allergies are reviewed. - History Of Current Complaint Chief Complaint: EDDizziness Stated Complaint: CARDIAC ISSUE Time Seen by Provider: 05/22/18 20:46 Hx Obtained From: Patient, Other: - patient's tier lift operator Onset/Duration: Still Present Timing: Days - two days Severity Currently: Moderate - 4/10 Character: Dizzy - "wobbly" Aggravating Factor(s): Exertion Alleviating Factor(s): Nothing Associated Signs And Symptoms: Positive: Nausea, SOB, Visual Changes, Other: - confusion - Allergies/Home Medications Allergies/Adverse Reactions: Allergies Allergy/AdvReac Type Severity Reaction Status Date / Time No Known Allergies Allergy Verified 05/22/18 20:34 PMH/Surg Hx/FS Hx/Imm Hx Endocrine/Hematology History: Denies: Hx Diabetes Cardiovascular History: Reports: Hx Atrial Fibrillation, Hx Congenital Heart Disease - murmur, Hx Congestive Heart Failure, Hx Coronary Artery Disease - Stent x2 2007, Hx Hypercholesterolemia, Hx Hypertension, Other Cardiovascular Problems/Disorders - cardiomyopathy. Marfan's syndrome Denies: Hx Angina - denies, Hx Myocardial Infarction, Hx Pacemaker/ICD, Hx Valvular Heart Disease Respiratory History: Reports: Hx Pulmonary Embolism - possible, Other Respiratory Problems/Disorders - SOB D/T WEAKNESS Denies: Hx Asthma, Hx Chronic Obstructive Pulmonary Disease (COPD), Hx Pneumonia GI History: Reports: Hx Hiatal Hernia, Other GI Disorders - abdominal hernia History: Denies: Hx Benign Prostatic Hyperplasia - maybe, Hx Dialysis Musculoskeletal History: Reports: Hx Arthritis, Hx Back Problems, Other Musculoskeletal History - Marfan's Syndrome Sensory History: Reports: Hx Macular Degeneration - lense implants x2, Hx Vision Problem - Pt states he has "blurry vision" Denies: Hx Contacts or Glasses, Hx Hearing Aid Opthamlomology History: Reports: Hx Macular Degeneration - lense implants x2, Hx Vision Problem - Pt states he has "blurry vision" Denies: Hx Contacts or Glasses Neurological History: Reports: Hx Headaches, Hx Nerve Disease, Other Neuro Impairments/Disorders - MARFAN'S SYNDROME Denies: Hx Dementia, Hx Seizures Psychiatric History: Reports: Hx Anxiety, Hx Attention Deficit Hyperactivity Disorder, Hx Depression, Hx Panic Disorder - agorophobia, Hx Inpatient Treatment , Hx Community Mental Health Tx, Hx Bipolar Disorder, Hx Substance Abuse Denies: Hx Eating Disorder, Hx of Violent Episodes Against Others - Surgical History Surgery Procedure, Year, and Place: left knee surgery, left wrist, abdominal hernia x2, cardiac cath 2009ish. dates unknown. Watchman procedure 2017. STENTS X2 2007 Hx Anesthesia Reactions: No - Immunization History Date of Tetanus Vaccine: utd Date of Influenza Vaccine: utd Infectious Disease History: Yes Infectious Disease History: Reports: Hx Shingles Denies: Hx Clostridium Difficile, Hx Hepatitis, Hx Human Immunodeficiency Virus (HIV), Hx of Known/Suspected MRSA, Hx Tuberculosis, History Other Infectious Disease, Traveled Outside the [place] in Last 30 Days - Family History Known Family History: Positive: Cardiac Disease - Social History Alcohol Use: Rare Alcohol Amount: 2x month Hx Substance Use: No Substance Use Type: Reports: None Substance Use Comment - Amount & Last Used: Pt states that he does use recreational substances Hx Tobacco Use: Yes Smoking Status (MU): Former Smoker Type: Cigarettes Amount Used/How Often: 5-7/day Length of Time of Smoking/Using Tobacco: 16 years total Have You Smoked in the Last Year: No Review of Systems Positive: Other - POSITIVE - VISION CHANGES Positive: Shortness Of Breath Positive: Nausea Neurological: Other - POSITIVE - DIZZINESS All Other Systems Reviewed And Are Negative: Yes Physical Exam - Summary Physical Exam Summary: VITAL SIGNS: Reviewed. GENERAL: Patient is a well-developed and nourished male who is lying comfortable in the stretcher. Patient is not in any acute respiratory distress. HEAD AND FACE: No signs of trauma. No ecchymosis, hematomas or skull depressions. No sinus tenderness. EYES: PERRLA, EOMI x 2, No injected conjunctiva, no nystagmus. EARS: Hearing grossly intact. Ear canals and tympanic membranes are within normal limits. MOUTH: Oropharynx within normal limits. NECK: Supple, trachea is midline, no adenopathy, no JVD, no carotid bruit, no c- spine tenderness, neck with full ROM. CHEST: Symmetric, no tenderness at palpation LUNGS: Clear to auscultation bilaterally. No wheezing or crackles. CVS: Regular rate and rhythm, S1 and S2 present, no murmurs or gallops appreciated. ABDOMEN: Soft, non-tender. No signs of distention. No rebound no guarding, and no masses palpated. Bowel sounds are normal. EXTREMITIES: FROM in all major joints, no edema, no cyanosis or clubbing. NEURO: Alert and oriented x 3. No acute neurological deficits. Speech is normal and follows commands. SKIN: Dry and warm Triage Information Reviewed: Yes Vital Signs On Initial Exam: Initial Vitals Temp Pulse Resp BP Pulse Ox 97.4 F 64 20 139/79 97 05/22/18 19:52 05/22/18 19:52 05/22/18 19:52 05/22/18 19:52 05/22/18 19:52 Vital Signs Reviewed: Yes Diagnostics - Vital Signs Vital Signs Temp Pulse Resp BP Pulse Ox 05/22/18 19:52 97.4 F 64 20 139/79 97 - Laboratory Result Diagrams: 05/22/18 21:08 05/22/18 21:08 Lab Statement: Any lab studies that have been ordered have been reviewed, and results considered in the medical decision making process. - Radiology CXR Radiology Interpretation Completed By: ED Physician Summary of Radiographic Findings: CXR: NO ACUTE PROCESS, PENDING OFFICIAL REPORT. - CT brain ct CT Interpretation Completed By: Radiologist Summary of CT Findings: BRAIN CT IMPRESSION: 1. No acute intracranial abnormality. 2. No change from the comparison study. THIS REPORT WAS REVIWED BY ED PHYSICIAN. - EKG 2000 Cardiac Rate: NL - RATE OF 62 BPM EKG Rhythm: Sinus Rhythm Summary of EKG Findings: EKG showed sinus rhythm with rate of 62 BPM, left axis deviation, poor R wave progression, non-specific T wave changes in lateral leads. Re-Evaluation - Re-Evaluation First Eval Re-Evaluation Time: 22:20 Comment: Hospitalist did a rectal exam and noted dark stool, which was sent for occult blood stool test. He was informed of possible upper GI bleed. Was started on PPI by hospitalist. Dizzy Course/Dx - Course Course Of Treatment: Patient is a 67 y/o M presenting to ED with complaints of dizziness, SOB with exertion, nausea, and confusion. He states Sx onset two days ago. Dizziness is described as feeling "wobbly", states dizziness is constant every time he ambulates. He also reports SOB after "a few steps". Patient's tier lift operator notes that patient has seemed more confused than normal as well. Nausea is endorsed, he states his "vision is off" but notes PMHx of vision "problems". Patient states he took all of his medications today except for his Coumadin. Extensive cardiac Hx is reported. Physical exam is normal. EKG showed sinus rhythm with rate of 62 BPM, left axis deviation, poor R wave progression, and non-specific T-wave. BRAIN CT IMPRESSION: 1. No acute intracranial abnormality. 2. No change from the comparison study. EKG showed sinus rhythm with rate of 62 BPM, left axis deviation, poor R wave progression, non-specific T wave changes in lateral leads. CXR showed no acute process. Labs showed RBC 2.16, Hct 21, MCV 96, MCH 32, APTT 41.2, BUN 65, creatinine 1.79 , BUN/creatinine 36.3, CK-MB 6.2, trop 0.02, total protein 5.7. Hgb is 7, which is down from 13.2 on 04/21/18. Dr. Castro accepts patient for admission. 2219 - Hospitalist did a rectal exam and noted dark stool, which was sent for occult blood stool test. He was informed of possible upper GI bleed. Was started on PPI by hospitalist. - Diagnoses Provider Diagnoses: Anemia, Dizziness, SOB (shortness of breath), Upper GI bleed - Provider Notifications Discussed Care Of Patient With: Daily Castro Time Discussed With Above Provider: 21:58 Instructed by Provider To: Other - 2157 - Dr. Castro accepts patient for admission. Discharge - Sign-Out/Discharge Documenting (check all that apply): Patient Departure - admit - Discharge Plan Condition: Good Disposition: ADMITTED TO [facility] Referrals: David Putnam MD [Primary Care Provider] - - Attestation Statements Document Initiated by Scribe: Yes Documenting Scribe: LUCIEN LIN Provider For Whom Scribe is Documenting (Include Credential): ROBBY YEE MD Scribe Attestation: I, LUCIEN LIN , scribed for ROBBY YEE MD on 05/22/18 at 8145. Status of Scribe Document: Ready
[2018-05-22 21:20] LABS: Hematocrit 21 % (42-52); Mean Corpuscular HGB Conc 34 g/dl (31-36); Mean Corpuscular Hemoglobin 32 pg (27-31); Mean Corpuscular Volume 96 fL (80-94); Mean Platelet Volume 7.8 fL (7.4-10.4); Platelet Count 230 10^3/ul (150-450); Red Blood Count 2.16 10^6/ul (4.00-5.40); Red Cell Distribution Width 15 % (10.5-15)
[2018-05-22 21:42] LABS: EGFR Non-African American 38.2 (>60)
[2018-05-22 22:02] LABS: ABS Basophils 0 10^3/ul (0-0.2); ABS Eosinophils 0.1 10^3/ul (0-0.6); ABS Lymphocytes 1.8 10^3/ul (1.0-4.8); ABS Monocytes 0.4 10^3/ul (0-0.8); ABS Neutrophils 4.6 10^3/ul (1.5-7.7); ABS Nucleated RBC 0.1 10^3/ul; Lymphocyte % 25.7 %; Nucleated Red Blood Cells % 0.7
[2018-05-22] MEDS ORDERED: Furosemide IV* 10 MG/ML 2 ML VIAL (20 MG) IV SLOW PU ONE (22:30)
[2018-05-22] MEDS ORDERED: Acetaminophen TAB* 325 MG PO PRN (22:30)
[2018-05-22] MEDS ORDERED: Ondansetron INJ* 2 MG/ML VIAL IV PRN (22:30)
[2018-05-22] MEDS ORDERED: Pantoprazole IV* 40 MG IV ONE (22:30)
[2018-05-22 22:41] LABS: INR 2.22 (0.77-1.02)
[2018-05-22 23:09] LABS: Hematocrit 20 % (42-52); Hemoglobin 6.9 g/dl (14.0-18.0)
[2018-05-22] MEDS: Pantoprazole* 80 mg IN NS 80 MG/250 ML BAG IVPB SCH (23:54)
--- NOTE | 2018-05-23 03:46 | HP ---
CC: Dr. Putnam; Dr. Meehan * HISTORY AND PHYSICAL: DATE OF ADMISSION: 05/22/18 PRIMARY CARE PROVIDER: Dr. Putnam. ATTENDING PHYSICIAN WHILE IN THE HOSPITAL: Dr. Daily Castro * (report dictated by Garcia Rodriguez NP) CONSULTING HAND FRAME SURGICAL ELASTIC KNITTER: Dr. Meehan. CHIEF COMPLAINT: 1. Shortness of breath. 2. Dizziness. HISTORY OF PRESENT ILLNESS: Mr. Farah is a 67-year-old male patient with a history of AFib, ischemic cardiomyopathy, last EF of 30% to 35%, CAD, bipolar disorder, history of Marfan's syndrome, hypertension, ADHD, and history of chronic pain, who recently about a month ago was here with AFib with RVR. He underwent DIVYA, was found to have a clot on his Watchman device. The cardioversion was aborted. He was placed on warfarin, initially had been doing well; however, he has just been noticing that he has been having difficulty in the last couple of days with shortness of breath, fatigue, weakness, dizziness, particularly with vision change, not feeling the greatest, at times having some episodes of confusion. The notes that he does take NSAIDs, naproxen, Aleve on a pretty routinely basis, almost once a day. He may skip it 2 or 3 days at a time for chronic pain. He had been doing this right along. He thought maybe he was coming down with a viral illness. He noted that his stools have been dark as well the last couple of days. He was concerned because of this, came into the ED. It was noted that his hemoglobin had dropped down from 13 to 7. He denies any chest pain or shortness of breath with the exception of exertion. He denies having any abdominal pain, just says his stomach feels nauseated. He says that he is not having any vomiting but he did admit to having some dark stools. Because of the concern for GI bleeding, we were asked to evaluate for admission. PAST MEDICAL HISTORY: Significant for: 1. AFib with a thrombus on the Watchman's via DIVYA about a month ago from here. 2. Ischemic cardiomyopathy, EF 30% to 35%. 3. CAD. 4. Bipolar. 5. Marfan's. 6. Hypertension. 7. ADHD. 8. Chronic pain. PAST SURGICAL HISTORY: He has had: 1. A Watchman's device placed. 2. Cardiac catheterization with 2 stents. 3. C-spine fusion. 4. Ablation. MEDICATIONS: Home meds according to the last discharge: 1. Depakote 1500 mg daily in the morning. 2. Aspirin 81 mg daily. 3. Amiodarone 200 mg every day. 4. Tylenol 650 mg every 4 hours as needed. 5. Warfarin 5 mg daily. 6. Aldactone 25 mg daily. 7. Ramipril 5 mg daily. 8. Zyprexa 5 mg at bedtime as needed. 9. Toprol-XL 100 mg p.o. daily. ALLERGIES TO MEDICATIONS: No known drug allergies. FAMILY HISTORY: Mother had a history of colon cancer. Father had a history of AFib and [place]. Surrogate decision maker is his . SOCIAL HISTORY: Former smoker, quit over 15 years ago. He does drink alcohol. REVIEW OF SYSTEMS: There is no documented fever. He denied having any significant weight change. There is no double vision. He denied having any ear discharge. There is no rhinorrhea. There is no sore throat or thyroid enlargement. Denied having any chest pain. There is dyspnea on exertion. There was no abdominal pain. There was nausea, but there was no vomiting. There is no dysuria, there is no frequency. There was no seizure, no loss of consciousness. No pruritus and no skin ulcerations. Review of 14 systems completed, all others negative. PHYSICAL EXAMINATION GENERAL: At this time, Mr. Farah is a 67-year-old male patient, he is sitting in the ED stretcher. He does not appear to be in any acute distress. He appears to be well nourished and well developed. VITAL SIGNS: Blood pressure 139/79, pulse 64, respirations 20, O2 saturation 97 %, temperature 97.4. HEENT: Head: Atraumatic, normocephalic. Eyes: EOMs were intact. Sclerae anicteric and not pale. Throat: Oral mucosa appears to be moist. No oropharyngeal erythema. NECK: Supple. LUNGS: Clear to auscultation. There were no wheezes, rales, or rhonchi. HEART: Sounds S1, S2. He had a regular rate and rhythm. No murmurs, rubs, or gallops. ABDOMEN: Soft, it was flat, nontender. Bowel sounds were present. EXTREMITIES: Pulses were 2+ throughout. He is moving all 4 extremities with 5/ 5 strength. NEUROLOGIC: He is awake, alert, oriented x3. No gross focal deficits. RECTAL: Exam did reveal dark stool. Hemoccult pending. SKIN: Intact. DIAGNOSTIC STUDIES/LAB DATA: WBC of 7, RBC of 2.16, hemoglobin 7, hematocrit 21, platelet count 230. INR 2.22, PTT of 41.2. Sodium 139, potassium 4.9, chloride 105, bicarb 29, BUN 65, creatinine 1.79, glucose 98, calcium 9. Total bili 0.2, AST 19, ALT 11, alk phos 51. CK 6.2. Troponin 0.02. BNP 51. Albumin was 3.5. Toxicology: Valproic acid level was 41. He did have a brain CT obtained today which read impression: No acute intracranial abnormality, no change from prior study. Chest x-ray obtained today when I reviewed it, I did not appreciate any acute infiltrate, he does have cardiomegaly, appeared to be a benign film, no pleural effusion. EKG today shows a normal sinus rhythm No ST elevation or T- wave inversion. previous EKG showed atrial fibrillation with a rate of 110. Again, last DIVYA from 04/21/18, EF 30% to 35%, and again, he did have a thrombus on the Watchman device. Old medical records were reviewed. ASSESSMENT AND PLAN: Mr. Farah is a 67-year-old male patient coming into the ED today with complaints of weakness, fatigue, shortness of breath on evaluation. It was noted that his H and H have been dropping precipitously. Because of this and the fact that he did have dark stools, we were asked to evaluate for admission. He will remain under inpatient status for: 1. Presumed upper gastrointestinal bleed. At this point, I did touch base with Dr. Meehan. Also, touched base with Cardiology. The plan will be to hold the Coumadin to let his INR drift down. I am not going to reverse him unless he becomes unstable. We will transfuse him 2 units of blood and place him in the ICU. Two peripheral IVs, PPI drips have been ordered. He will be n.p.o. and we will watch him closely with serial H and H's. 2. Atrial fibrillation. Again, he does have a known thrombus on his Watchman device, holding his warfarin. The patient has been made fully aware that he is at risk for stroke but again we need to treat the immediate issue which is bleeding. He will be only reversed if he becomes unstable in any way. We will continue to follow and I will give him 2 units of blood. We will continue the amiodarone. 3. Ischemic cardiomyopathy. I am going to hold his VERONIQUE inhibitor and spironolactone in the setting of acute illness. We will restart beta hussein when we are able to. We will diurese as needed. We will follow. 4. Coronary artery disease. Holding his aspirin, currently we will restart his beta hussein when blood pressure allows. His last blood pressure in the room was 103/60. We will follow closely. 5. Bipolar disorder, attention deficit hyperactivity disorder. Continue supportive care. 6. Marfan's. Continue supportive care. 7. Hypertension. Holding his blood pressure meds in the setting of acute illness and chronic pain. P.r.n. Tylenol has been ordered. 8. Code status. Full code. 9. Fluids, electrolytes, and nutrition. He is n.p.o. for possible EGD in the morning. TIME SPENT: On the admission was 60 minutes; greater than half the time was spent [id number] with the patient obtaining my history and physical, other half of the time spent going over the plan of care with the patient and implementing plan of care. I did discuss the plan of care with my attending, Dr. Castro; she is in agreement. GARCIA RODRIGUEZ NP [id number]/[facility] #: [id number] JANEY
[2018-05-23 04:22] LABS: Hematocrit 21 % (42-52); Mean Corpuscular HGB Conc 34 g/dl (31-36); Mean Corpuscular Hemoglobin 32 pg (27-31); Mean Corpuscular Volume 95 fL (80-94); Mean Platelet Volume 7.6 fL (7.4-10.4); Platelet Count 188 10^3/ul (150-450); Red Blood Count 2.18 10^6/ul (4.00-5.40); Red Cell Distribution Width 14 % (10.5-15); White Blood Count 5.2 10^3/ul (3.5-10.8)
[2018-05-23 04:27] LABS: INR 1.95 (0.77-1.02)
[2018-05-23 04:40] LABS: EGFR Non-African American 42.8 (>60)
[2018-05-23 05:25] LABS: ABS Basophils 0 10^3/ul (0-0.2); ABS Eosinophils 0.2 10^3/ul (0-0.6); ABS Lymphocytes 1.7 10^3/ul (1.0-4.8); ABS Monocytes 0.3 10^3/ul (0-0.8); ABS Neutrophils 2.9 10^3/ul (1.5-7.7); ABS Nucleated RBC 0 10^3/ul; Eosinophil % 3.7 %; Lymphocyte % 33.1 %; Nucleated Red Blood Cells % 0.6
--- NOTE | 2018-05-23 07:59 | PN ---
Date of Service: 05/23/18 Critical Care Services: 67M with htn, chronic pain, bipolar, cad, ischemic chf, afib s/p watchman device presents with upper gi bleed. Hgb 7 on admission down from 13 1 month ago. 05/23: Likely EGD today. Vital Signs: Temp Pulse Resp BP SpO2 FiO2 98.3 F 57 18 114/64 96 05/23/18 05:00 05/23/18 07:01 05/23/18 07:01 05/23/18 07:00 05/23/18 07:01 Physical Exam: Gen - pale, nad heent - ncat, eomi, peerl neck - no jvd cv - s1/s2, irregular lungs - cta, no wheeze abd - soft, nt ext - no cce neuro - non-focal Fluid Balance (Past 24 Hours): I= O= Net Intake & Output 05/21/18 05/22/18 05/23/18 05/24/18 06:59 06:59 06:59 06:59 Intake Total 160 Output Total 1225 Balance -1065 Weight 112 kg Intake: IV Fluids 160 protonix 160 Output: Urine 1225 Labs: Laboratory Results - last 24 hr 05/22/18 05/22/18 05/22/18 21:08 21:08 21:08 WBC 7.0 RBC 2.16 L Hgb 7.0 L Hct 21 L MCV 96 H MCH 32 H MCHC 34 RDW 15 Plt Count 230 MPV 7.8 Neut % (Auto) 65.5 Lymph % (Auto) 25.7 [place] % (Auto) 6.3 Eos % (Auto) 2.0 Baso % (Auto) 0.5 Absolute Neuts (auto) 4.6 Absolute Lymphs (auto) 1.8 Absolute Monos (auto) 0.4 Absolute Eos (auto) 0.1 Absolute Basos (auto) 0 Absolute Nucleated RBC 0.1 Nucleated RBC % 0.7 INR (Anticoag Therapy) 2.22 H APTT 41.2 H Sodium 139 Potassium 4.9 Chloride 105 Carbon Dioxide 29 Anion Gap 5 BUN 65 H Creatinine 1.79 H Est GFR ( Amer) 46.2 Est GFR (Non-Af Amer) 38.2 BUN/Creatinine Ratio 36.3 H Glucose 98 Calcium 9.0 Total Bilirubin 0.20 AST 19 ALT 11 Alkaline Phosphatase 51 CK-MB (CK-2) 6.2 Troponin I 0.02 B-Natriuretic Peptide Total Protein 5.7 L Albumin 3.5 Globulin 2.2 Albumin/Globulin Ratio 1.6 Valproic Acid 41.0 L Blood Type Antibody Screen Crossmatch 05/22/18 05/22/18 05/22/18 21:08 21:08 22:55 WBC RBC Hgb 6.9 L Hct 20 L MCV MCH MCHC RDW Plt Count MPV Neut % (Auto) Lymph % (Auto) [place] % (Auto) Eos % (Auto) Baso % (Auto) Absolute Neuts (auto) Absolute Lymphs (auto) Absolute Monos (auto) Absolute Eos (auto) Absolute Basos (auto) Absolute Nucleated RBC Nucleated RBC % INR (Anticoag Therapy) APTT Sodium Potassium Chloride Carbon Dioxide Anion Gap BUN Creatinine Est GFR ( Amer) Est GFR (Non-Af Amer) BUN/Creatinine Ratio Glucose Calcium Total Bilirubin AST ALT Alkaline Phosphatase CK-MB (CK-2) Troponin I B-Natriuretic Peptide 51 Total Protein Albumin Globulin Albumin/Globulin Ratio Valproic Acid Blood Type O Positive Antibody Screen Negative Crossmatch See Detail 05/23/18 05/23/18 05/23/18 04:10 04:10 04:10 WBC 5.2 RBC 2.18 L Hgb 7.0 L Hct 21 L MCV 95 H MCH 32 H MCHC 34 RDW 14 Plt Count 188 MPV 7.6 Neut % (Auto) 55.8 Lymph % (Auto) 33.1 [place] % (Auto) 6.7 Eos % (Auto) 3.7 Baso % (Auto) 0.7 Absolute Neuts (auto) 2.9 Absolute Lymphs (auto) 1.7 Absolute Monos (auto) 0.3 Absolute Eos (auto) 0.2 Absolute Basos (auto) 0 Absolute Nucleated RBC 0 Nucleated RBC % 0.6 INR (Anticoag Therapy) 1.95 H APTT Sodium 139 Potassium 4.7 Chloride 107 Carbon Dioxide 28 Anion Gap 4 BUN 58 H Creatinine 1.62 H Est GFR ( Amer) 51.8 Est GFR (Non-Af Amer) 42.8 BUN/Creatinine Ratio 35.8 H Glucose 94 Calcium 8.2 L Total Bilirubin AST ALT Alkaline Phosphatase CK-MB (CK-2) Troponin I B-Natriuretic Peptide Total Protein Albumin Globulin Albumin/Globulin Ratio Valproic Acid Blood Type Antibody Screen Crossmatch Studies: 05/22 CXR IMPRESSION: NO EVIDENCE FOR ACUTE DISEASE. 05/[address] IMPRESSION: 1. No acute intracranial abnormality. 2. No change from the comparison study. Impression: 67M with htn, chronic pain, bipolar, cad, ischemic chf, afib s/p watchman device presents with upper gi bleed. Hgb 7 on admission down from 13 one month ago. Plan: Neuro - bipolar - c/w depakote/olanzapine CV - htn, cad, chf, afib - hold anti-hypertesives for now and re-add as needed - hold asa/coumadin - c/w amio Pulm - oxygenating well on room air ID - afebrile, normal wbc GI - ugi bleed - npo - ppi gtt - gi for EGD Renal - zana - 2/2 volume depletion - iv hydaration Heme - symptomatic anemia - serial cbc - keep hgb > 7 - hold ac for now Endo - fs ok Lines - piv PPx - gi/dvt Full Code Critical Care Time: 40 mins
[2018-05-23] MEDS: Amiodarone TAB* 200 MG PO SCH (08:29)
[2018-05-23] MEDS: Divalproex ER TAB(*) 500 MG PO SCH (08:30)
[2018-05-23] MEDS: Pantoprazole* 80 mg IN NS 80 MG/250 ML BAG IVPB SCH ×2 (09:47→20:14)
[2018-05-23 10:03] LABS: Hematocrit 24 % (42-52)
[2018-05-23] MEDS ORDERED: Midazolam* 1 MG/ML 10 ML VIAL (10 MG) ONE (14:05)
[2018-05-23] MEDS ORDERED: fentaNYL* 50 MCG/ML 2 ML VIAL (100 MCG VIAL) ONE (14:05)
[2018-05-23 14:27] LABS: Hematocrit 24 % (42-52); Mean Corpuscular HGB Conc 34 g/dl (31-36); Mean Corpuscular Hemoglobin 31 pg (27-31); Mean Corpuscular Volume 92 fL (80-94); Mean Platelet Volume 7.8 fL (7.4-10.4); Platelet Count 191 10^3/ul (150-450); Red Blood Count 2.57 10^6/ul (4.00-5.40); Red Cell Distribution Width 16 % (10.5-15); White Blood Count 4.3 10^3/ul (3.5-10.8)
[2018-05-23] MEDS ORDERED: Warfarin TAB(*) 5 MG PO ONE (17:00)
[2018-05-23 20:39] LABS: Hematocrit 24 % (42-52); Mean Corpuscular HGB Conc 34 g/dl (31-36); Mean Corpuscular Hemoglobin 31 pg (27-31); Mean Corpuscular Volume 93 fL (80-94); Mean Platelet Volume 7.4 fL (7.4-10.4); Platelet Count 197 10^3/ul (150-450); Red Blood Count 2.55 10^6/ul (4.00-5.40); Red Cell Distribution Width 16 % (10.5-15); White Blood Count 4.1 10^3/ul (3.5-10.8)
--- NOTE | 2018-05-23 21:00 | CONS ---
CONSULTATION REPORT: DATE OF CONSULT: 05/23/18 REQUESTING PHYSICIAN: Dr. Green in the emergency room. INDICATION: Anemia. NARRATIVE: Mr. Farah is a very pleasant 67-year-old gentleman, who has a history of Marfan's disease. He also has intermittent atrial fibrillation, WATCHMAN device, bipolar, hypertension, ADHD, chronic pain and cardiomyopathy, who was admitted to the hospital with anemia. He states that he has been feeling rundown and fatigued and has been having black and tarry stools. He does take both aspirin and other nonsteroidals on a regular basis for chronic pain. He denies any vomiting up blood. He denies any chest pain. PAST MEDICAL HISTORY: Please see the HPI. PAST SURGICAL HISTORY: Includes the C-spine fusion. MEDICATIONS UPON ADMISSION: Include: 1. Depakote. 2. Aspirin. 3. Amiodarone. 4. Warfarin. 5. Aldactone. 6. Ramipril. 7. Zyprexa. 8. Toprol-XL. 9. NSAIDs. ALLERGIES: None. FAMILY HISTORY: Colorectal cancer, coronary artery disease. SOCIAL HISTORY: He quit smoking many years ago. He drinks occasional alcohol. REVIEW OF SYSTEMS: Twelve systems were reviewed and other than that mentioned in the HPI were unremarkable. PHYSICAL EXAM: Temperature is 98.3, blood pressure is 125/76, pulse is 57. General: Well-appearing male, in no apparent distress, alert, oriented, pleasant, fluent. HEENT: Mucous membranes are moist without lesions, ulcers, or exudate. Neck is supple. Trachea is midline. Head is normocephalic, atraumatic. Heart: Irregular rate and rhythm. No murmurs, rubs, or gallops. Lungs: Clear to auscultation bilaterally. No wheezes, rales, or rhonchi. Abdomen: Positive bowel sounds. Soft, nontender, nondistended. No hepatosplenomegaly, masses, rebound, or guarding. Skin is warm and dry. Psych : Normal affect. Good insight. Good judgment. DIAGNOSTIC STUDIES/LAB DATA: Of note, his hemoglobin went from 7 to 6.9 to 7 to 8.0 to 8.0, platelets of 191, white count of 4.3. He did receive 2 units of blood. INR is 1.95. Chemistries shows a BUN down from 65 to 58, creatinine went from 1.79 to 1.62. ASSESSMENT AND PLAN: Pleasant 67-year-old gentleman, who takes aspirin and nonsteroidals, presents with black and tarry stools, elevated BUN, decreased hemoglobin. I agree that peptic ulcer disease is high on the list within our differentials. He has already been started on IV Protonix. I will make arrangements for an EGD. He should have his Coumadin held for right now. Avoid all nonsteroidals. I will follow up after the EGD. [id number]/[facility] #: [id number] [facility] STATE HOSPITALIsauro
[2018-05-23 21:48] LABS: ABS Basophils 0 10^3/ul (0-0.2); ABS Eosinophils 0.2 10^3/ul (0-0.6); ABS Lymphocytes 1.4 10^3/ul (1.0-4.8); ABS Monocytes 0.3 10^3/ul (0-0.8); ABS Neutrophils 2.3 10^3/ul (1.5-7.7); ABS Nucleated RBC 0 10^3/ul; Eosinophil % 3.9 %; Lymphocyte % 33.3 %; Nucleated Red Blood Cells % 0.5
[2018-05-24] MEDS ORDERED: OLANzapine TAB* 5 MG PO ONE (00:21)
[2018-05-24] MEDS: Pantoprazole* 80 mg IN NS 80 MG/250 ML BAG IVPB SCH (05:54)
[2018-05-24 05:55] LABS: INR 1.35 (0.77-1.02)
[2018-05-24 05:58] LABS: EGFR Non-African American 51.6 (>60)
[2018-05-24 06:07] LABS: ABS Basophils 0 10^3/ul (0-0.2); ABS Eosinophils 0.2 10^3/ul (0-0.6); ABS Lymphocytes 1.5 10^3/ul (1.0-4.8); ABS Monocytes 0.3 10^3/ul (0-0.8); ABS Neutrophils 2.2 10^3/ul (1.5-7.7); ABS Nucleated RBC 0 10^3/ul; Eosinophil % 3.8 %; Hematocrit 23 % (42-52); Hemoglobin 7.8 g/dl (14.0-18.0); Lymphocyte % 35.8 %; Mean Corpuscular HGB Conc 34 g/dl (31-36); Mean Corpuscular Hemoglobin 32 pg (27-31); Mean Corpuscular Volume 94 fL (80-94); Mean Platelet Volume 7.7 fL (7.4-10.4); Nucleated Red Blood Cells % 0.8; Platelet Count 200 10^3/ul (150-450); Red Blood Count 2.46 10^6/ul (4.00-5.40); Red Cell Distribution Width 16 % (10.5-15); White Blood Count 4.2 10^3/ul (3.5-10.8)
--- NOTE | 2018-05-24 06:54 | PRO ---
DATE OF PROCEDURE: 05/23/18 - ROOM #ICU-01 PROCEDURE: EGD. INDICATION: Melena, anemia, elevated BUN, nonsteroidal use. MEDICATIONS GIVEN: 75 mcg IV fentanyl, 6 mg IV Versed. DESCRIPTION OF PROCEDURE: After the EGD procedure including the risks, benefits , and alternatives not limited to perforation, surgery, and/or were explained to the patient, written consent was then obtained, IV medication was given, and a bite block was placed between the teeth. An Olympus gastroscope was then inserted into the patient's mouth, advanced down the esophagus, into the stomach, into the distal duodenum. The procedure was performed in the intensive care unit. In the esophagus at the GE junction, the patient does have a stricture. He described no dysphagia to me. He recently stopped blood thinners; this was not addressed. Scope was advanced through a small hiatal hernia into the body of the stomach. Retroflex view was unremarkable. Forward view did reveal numerous small gastric erosions and ulcers, none of them were bleeding. I did take a biopsy for H. pylori. The scope was advanced through a widely patent pylorus into the duodenal bulb, into the distal duodenum, both of which did contain what appeared to be scalloping of the folds. A biopsy was obtained for celiac disease. The scope was then withdrawn from the patient. He tolerated the procedure well and was returned to the recovery room in stable condition. IMPRESSION: 1. Complete upper endoscopy into the duodenum with biopsies. 2. Gastric erosions and ulcers, status post biopsy. 3. Biopsy for Helicobacter pylori. 4. Biopsy for celiac disease. 5. I will follow up on the biopsies. He should remain on his IV Protonix until tomorrow and then we can switch to oral b.i.d. He should avoid nonsteroidals and given the fact he has never had an NV, I would recommend holding off on aspirin for the next 2 weeks. He can likely continue with his Coumadin given the fact that he does have a clot on his Watchman device in his heart. We will continue to follow along very closely. [id number]/[facility] #: [id number] JANEY
--- NOTE | 2018-05-24 08:59 | PN ---
Date of Service: 05/24/18 Critical Care Services: 67M with htn, chronic pain, bipolar, cad, ischemic chf, afib s/p watchman device presents with upper gi bleed. Hgb 7 on admission down from 13 1 month ago. 05/23: Likely EGD today 05/24: EGD with multiple ulcers. Hgb stable. Renal function improving. Vital Signs: Temp Pulse Resp BP SpO2 FiO2 98.3 F 63 22 127/59 89 05/24/18 07:41 05/24/18 06:30 05/24/18 08:00 05/24/18 06:30 05/24/18 06:30 Physical Exam: Gen - nad heent - ncat, eomi, peerl neck - no jvd cv - s1/s2, irregular lungs - cta, no wheeze abd - soft, nt ext - no cce neuro - non-focal Fluid Balance (Past 24 Hours): I= O= Net Intake & Output 05/22/18 05/23/18 05/24/18 05/25/18 06:59 06:59 06:59 06:59 Intake Total 160 2061 322 Output Total 1225 1875 0 Balance -1065 186 322 Weight 112 kg 113.8 kg Intake: IV Fluids 160 589 protonix 160 589 Oral 1150 0 Packed Cells 322 322 Output: Urine 1225 1875 0 Labs: Laboratory Results - last 24 hr 05/22/18 05/23/18 05/23/18 21:08 09:55 13:10 WBC 4.3 RBC 2.57 L Hgb 8.0 L 8.0 L Hct 24 L 24 L MCV 92 MCH 31 MCHC 34 RDW 16 H Plt Count 191 MPV 7.8 Neut % (Auto) Lymph % (Auto) [place] % (Auto) Eos % (Auto) Baso % (Auto) Absolute Neuts (auto) Absolute Lymphs (auto) Absolute Monos (auto) Absolute Eos (auto) Absolute Basos (auto) Absolute Nucleated RBC Nucleated RBC % INR (Anticoag Therapy) Sodium Potassium Chloride Carbon Dioxide Anion Gap BUN Creatinine Est GFR ( Amer) Est GFR (Non-Af Amer) BUN/Creatinine Ratio Glucose Calcium Phosphorus Magnesium Blood Type O Positive Antibody Screen Negative Crossmatch See Detail 05/23/18 05/24/18 05/24/18 20:30 05:20 05:20 WBC 4.1 4.2 RBC 2.55 L 2.46 L Hgb 8.0 L 7.8 L Hct 24 L 23 L MCV 93 94 MCH 31 32 H MCHC 34 34 RDW 16 H 16 H Plt Count 197 200 MPV 7.4 7.7 Neut % (Auto) 54.9 52.8 Lymph % (Auto) 33.3 35.8 [place] % (Auto) 7.1 7.1 Eos % (Auto) 3.9 3.8 Baso % (Auto) 0.8 0.5 Absolute Neuts (auto) 2.3 2.2 Absolute Lymphs (auto) 1.4 1.5 Absolute Monos (auto) 0.3 0.3 Absolute Eos (auto) 0.2 0.2 Absolute Basos (auto) 0 0 Absolute Nucleated RBC 0 0 Nucleated RBC % 0.5 0.8 INR (Anticoag Therapy) Sodium 139 Potassium 4.2 Chloride 106 Carbon Dioxide 29 Anion Gap 4 BUN 34 H Creatinine 1.38 H Est GFR ( Amer) 62.4 Est GFR (Non-Af Amer) 51.6 BUN/Creatinine Ratio 24.6 H Glucose 122 H Calcium 8.1 L Phosphorus 3.3 Magnesium 2.1 Blood Type Antibody Screen Crossmatch 05/24/18 05:20 WBC RBC Hgb Hct MCV MCH MCHC RDW Plt Count MPV Neut % (Auto) Lymph % (Auto) [place] % (Auto) Eos % (Auto) Baso % (Auto) Absolute Neuts (auto) Absolute Lymphs (auto) Absolute Monos (auto) Absolute Eos (auto) Absolute Basos (auto) Absolute Nucleated RBC Nucleated RBC % INR (Anticoag Therapy) 1.35 H Sodium Potassium Chloride Carbon Dioxide Anion Gap BUN Creatinine Est GFR ( Amer) Est GFR (Non-Af Amer) BUN/Creatinine Ratio Glucose Calcium Phosphorus Magnesium Blood Type Antibody Screen Crossmatch Studies: 05/22 CXR IMPRESSION: NO EVIDENCE FOR ACUTE DISEASE. 05/[address] IMPRESSION: 1. No acute intracranial abnormality. 2. No change from the comparison study. 05/23 EGD IMPRESSION: 1. Complete upper endoscopy into the duodenum with biopsies. 2. Gastric erosions and ulcers, status post biopsy. 3. Biopsy for Helicobacter pylori. 4. Biopsy for celiac disease. 5. I will follow up on the biopsies. He should remain on his IV Protonix until tomorrow and then we can switch to oral b.i.d. He should avoid nonsteroidals and given the fact he has never had an NV , I would recommend holding off on aspirin for the next 2 weeks. He can likely continue with his Coumadin given the fact that he does have a clot on his Watchman device in his heart. We will continue to follow along very closely. Impression: 67M with htn, chronic pain, bipolar, cad, ischemic chf, afib s/p watchman device presents with upper gi bleed. Hgb 7 on admission down from 13 one month ago. PUD on EGD. Plan: Neuro - bipolar - c/w depakote/olanzapine CV - htn, cad, chf, afib - hold anti-hypertesives for now and re-add as needed - hold asa for 2 weeks - coumadin restarted - INR 1.3 today so lovenox added given thrombus seen on recent DIVYA - c/w amio Pulm - oxygenating well on room air ID - afebrile, normal wbc GI - ugi bleed - PUD on EGD - switch to iv ppi bid today - CLOTEST neg for h pylori - avoid NSAIDS - diet restarted Renal - zana - improving - 2/2 volume depletion - iv hydaration Heme - symptomatic anemia - 2/2 gib - hgb stable - continue to monitor for bleeding Endo - fs ok Lines - piv PPx - gi/dvt Full Code Stable for transfer to floor Critical Care Time: 40 mins
[2018-05-24] MEDS: Amiodarone TAB* 200 MG PO SCH (09:10)
[2018-05-24] MEDS: Enoxaparin(*) 100 MG/ML SYR SUBCUT SCH ×2 (09:10→22:37)
[2018-05-24] MEDS: Divalproex ER TAB(*) 500 MG PO SCH (09:13)
[2018-05-24] MEDS: Pantoprazole IV* 40 MG IV SCH ×2 (10:42→22:32)
[2018-05-24] MEDS: Warfarin TAB(*) 5 MG PO SCH (17:28)
[2018-05-25 06:33] LABS: Hematocrit 25 % (42-52); Hemoglobin 8.6 g/dl (14.0-18.0); Mean Corpuscular HGB Conc 34 g/dl (31-36); Mean Corpuscular Hemoglobin 32 pg (27-31); Mean Corpuscular Volume 93 fL (80-94); Mean Platelet Volume 7.5 fL (7.4-10.4); Platelet Count 261 10^3/ul (150-450); Red Blood Count 2.72 10^6/ul (4.00-5.40); Red Cell Distribution Width 15 % (10.5-15); White Blood Count 5.8 10^3/ul (3.5-10.8)
[2018-05-25 06:37] LABS: INR 1.78 (0.77-1.02)
[2018-05-25 06:52] LABS: EGFR Non-African American 64.3 (>60)
[2018-05-25 07:52] LABS: ABS Basophils 0 10^3/ul (0-0.2); ABS Eosinophils 0.2 10^3/ul (0-0.6); ABS Lymphocytes 2.3 10^3/ul (1.0-4.8); ABS Monocytes 0.4 10^3/ul (0-0.8); ABS Neutrophils 2.9 10^3/ul (1.5-7.7)
[2018-05-25 07:55] LABS: Monocytes % 3 %
[2018-05-25 07:56] LABS: ABS Neutrophils 2.6 10^3/ul (1.5-7.7)
[2018-05-25] MEDS: Amiodarone TAB* 200 MG PO SCH (08:24)
[2018-05-25] MEDS: Divalproex ER TAB(*) 500 MG PO SCH (08:24)
[2018-05-25] MEDS: Enoxaparin(*) 100 MG/ML SYR SUBCUT SCH (08:24)
[2018-05-25] MEDS: Pantoprazole IV* 40 MG IV SCH ×2 (08:27→21:31)
[2018-05-25] MEDS ORDERED: Polyethylene Glycol 3350* 17 GM PACKET PO PRN (10:32)
[2018-05-25] MEDS ORDERED: Polyethylene Glycol 3350* 17 GM PACKET PO ONE (10:32)
[2018-05-25] MEDS ORDERED: Docusate CAP* 100 MG PO PRN (10:32)
[2018-05-25 14:56] LABS: Hematocrit 25 % (42-52); Hemoglobin 8.7 g/dl (14.0-18.0); Mean Corpuscular HGB Conc 35 g/dl (31-36); Mean Corpuscular Hemoglobin 32 pg (27-31); Mean Corpuscular Volume 93 fL (80-94); Mean Platelet Volume 7.1 fL (7.4-10.4); Platelet Count 275 10^3/ul (150-450); Red Blood Count 2.72 10^6/ul (4.00-5.40); Red Cell Distribution Width 15 % (10.5-15); White Blood Count 5.4 10^3/ul (3.5-10.8)
[2018-05-25] MEDS: Warfarin TAB(*) 5 MG PO SCH (16:54)
--- NOTE | 2018-05-25 17:25 | PN ---
Subjective Date of Service: 05/25/18 Interval History: Pt seen and examined. Meds and labs reviewed. S/P 2 units of PRBC transfusion in ICU yesterday CC: Mentions still having dark/black stools today; moved bowels a few hours after being placed on bowel regimen ROS: Denied MILAN/dizziness, F/C, N/V, CP, SOB, increased cough, sputum production , abd pain, diarrhea, constipation, dysuria, myalgias, arthralgias, throat pain , and new skin lesions. The rest of the 14 point ROS are unremarkable. PHYSICAL EXAM: GEN APPEARANCE: Awake, not in acute distress HEENT: NC/AT, PERRLA, moist oral mucosa, (-) throat erythema NECK: Soft, supple, (-) cervical LAD, (-)JVD HEART: S1S2 WNL, RRR, No MRG CHEST: CTA, BL, GAE, No W/R/R ABD: Soft, ND/NT, NABS 4x Q EXT: No C/C/E SKIN: Warm to touch PSYCH: No active psychosis, hallucinations, depression, SI/HI Objective Active Medications: Acetaminophen (Tylenol Tab*) 650 mg PO Q4H PRN PRN Reason: FEVER/PAIN Amiodarone HCl (Cordarone Tab*) 200 mg PO DAILY [facility] Last Admin: 05/25/18 08:24 Dose: 200 mg Divalproex Sodium (Depakote Er Tab(*)) 1,500 mg PO QAM [facility] Last Admin: 05/25/18 08:24 Dose: 1,500 mg Docusate Sodium (Colace Cap*) 200 mg PO DAILY PRN PRN Reason: CONSTIPATION Ondansetron HCl (Zofran Inj*) 4 mg IV Q6H PRN PRN Reason: NAUSEA Pantoprazole Sodium (Protonix Iv*) 40 mg IV Q12H [facility] Last Admin: 05/25/18 08:27 Dose: 40 mg Polyethylene Glycol/Electrolytes (Miralax*) 17 gm PO DAILY PRN PRN Reason: CONSTIPATION Vital Signs - 8 hr 05/25/18 05/25/18 11:24 15:59 Temperature 99.1 F 98.3 F Pulse Rate 73 67 Respiratory 18 20 Rate Blood Pressure 107/55 147/76 (mmHg) O2 Sat by Pulse 95 93 Oximetry Oxygen Devices in Use Now: None Result Diagrams: 05/25/18 14:42 05/25/18 06:16 Microbiology and Other Data: Microbiology 05/22/18 22:55 Aerobic Blood Culture - Preliminary Blood Venous No Growth Day 2 Anaerobic Blood Culture - Preliminary No Growth Day 2 05/22/18 21:08 Aerobic Blood Culture - Preliminary Blood Venous No Growth Day 2 Anaerobic Blood Culture - Preliminary No Growth Day 2 05/23/18 16:26 CLOtest - Final Gastric Antrum 05/22/18 22:33 Stool Occult Blood (ROMEO) - Final Stool Assess/Plan/Problems-Billing Assessment: - Patient Problems (1) Gastric erosions Current Visit: Yes Status: Acute Code(s): K25.9 - GASTRIC ULCER, UNSP ACUTE OR CHRONIC, W/O HEMOR OR PERF SNOMED Code(s): 138628819 Comment: -BETTY test (-) -Given H&H did not increase as expected S/P 2 units of PRBC transfusion yesterday, will continue to trend H&H especially given history of persistent melena -H&H this afternoon is stable from this AM -For repeat H&H @2200 (2) Afib Current Visit: No Status: Acute Code(s): I48.91 - UNSPECIFIED ATRIAL FIBRILLATION SNOMED Code(s): 33815472 Comment: -Placed on bridging anticoagulation in ICU due to reported clot on DIVYA on Watchman device to catch clots -Pt is currently almost therapeutic on Coumadin and clot appropriately caught by Watchman devicereconsider anticoagulation if pt rebleeds significantly -Will discuss above with Cards; Dr. Clarke appears to have been contacted by Mr. Rodriguez on admission. Clarified history better upon speaking with Dr. Saha and DIVYA is scanned and was not done the day FENDER REPAIRER, rather was done 1 mo FENDER REPAIRER. Furthermore, Dr. Saha mentioned that upon review of the images, that it was not actually a clot. -Given above, I will D/C anticoagulation -Touched base with tele-tech since he has order for tele and cannot access tele from ICU until hes on to determine whether hes in NS or P. A.fib -Continue Amiodarone (3) Bipolar 1 disorder with moderate bari Current Visit: No Status: Acute Comment: -Continue Olanzapine and Depakote (4) Constipation Current Visit: Yes Status: Acute Code(s): K59.00 - CONSTIPATION, UNSPECIFIED SNOMED Code(s): 03445360 Comment: -Seems to have resolved, however, stool is melenic -Please see above discussion (5) DVT prophylaxis Current Visit: No Status: Acute Priority: Medium Onset Date: 08/28/14 Code(s): [id number] - SNOMED Code(s): 004249992 Comment: -As above -Will D/C anticoagulation -Continue SCDs Status and Disposition: -For possible D/C in AM if H&H continues to be stable
[2018-05-25 17:51] LABS: Hematocrit 25 % (42-52); Hemoglobin 8.8 g/dl (14.0-18.0)
[2018-05-26 05:51] LABS: Hematocrit 27 % (42-52); Hemoglobin 9.3 g/dl (14.0-18.0); Mean Corpuscular HGB Conc 34 g/dl (31-36); Mean Corpuscular Hemoglobin 32 pg (27-31); Mean Corpuscular Volume 93 fL (80-94); Mean Platelet Volume 7.1 fL (7.4-10.4); Platelet Count 300 10^3/ul (150-450); Red Blood Count 2.91 10^6/ul (4.00-5.40); Red Cell Distribution Width 15 % (10.5-15); White Blood Count 5.6 10^3/ul (3.5-10.8)
[2018-05-26 05:57] LABS: INR 2.34 (0.77-1.02)
[2018-05-26 06:15] LABS: EGFR Non-African American 66.3 (>60)
[2018-05-26] MEDS: Divalproex ER TAB(*) 500 MG PO SCH (10:47)
[2018-05-26] MEDS: Amiodarone TAB* 200 MG PO SCH (10:48)
[2018-05-26] MEDS: Pantoprazole IV* 40 MG IV SCH (10:48)
[2018-05-26 17:08] VITALS: BP 126/61
--- NOTE | 2018-05-26 21:55 | DS ---
CC: Dr. Castro; Dr. Yonatan Knox; Dr. Meehan; Dr. Deidra Pritchett; Dr. David Putnam * DISCHARGE SUMMARY: DATE OF ADMISSION: DATE OF DISCHARGE: 05/26/18 DISCHARGE DIAGNOSES: Are as follows: 1. Upper gastrointestinal bleed due to gastric erosions and ulcers/peptic ulcer disease. 2. History of atrial fibrillation, was on Coumadin. This can be stopped. Please see discussion below. 3. Bipolar disorder, history of. 4. Constipation, history of. DISCHARGE MEDICATIONS: Are as follows: 1. Amiodarone 200 mg p.o. daily. 2. Divalproex ER tab 1500 mg p.o. q.a.m. 3. Colace 200 mg p.o. daily. 4. Tylenol 650 mg p.o. q.4 p.r.n. 5. Metoprolol succinate 100 mg p.o. daily. 6. Olanzapine 5 mg p.o. q.h.s. 7. Pantoprazole 40 mg p.o. b.i.d. 8. Ramipril 5 mg p.o. daily. HISTORY OF PRESENT ILLNESS/HOSPITAL COURSE: The patient is a 67-year-old gentleman with a history of AFib, ischemic cardiomyopathy with an EF of 30% to 35%, admitted with a chief complaint of shortness of breath and dizziness and his symptoms were thought to be primarily due to a GI bleed. He was seen by Dr. Meehan on consultation and had subsequent EGD, which showed gastric erosions and ulcers with biopsy of the duodenum, which suggested benign duodenal mucosa with mild villous blunting with no evidence of intraepithelial lymphocytes. Of note, the patient initially was admitted to the ICU, and given a DIVYA that was done about a month before, he was initially placed back on warfarin and Lovenox bridging; however, upon review of his case with Dr. Saha , she mentions that she has reviewed the DIVYA images and the clot that was supposedly seen in the Watchman device is actually not a clot but rather an artifact. Hence, given the patient still required transfusion of 2 units after reinstitution of his anticoagulation per Dr. Saha, this can be subsequently stopped because there is no clot to begin with and hence, we will defer. He was advised to follow up and/or call with his PCP within 3 days post discharge and to follow up with Dr. Meehan within 1 week post discharge. He was advised to call to make/confirm an appointment. He was advised to follow up with his sponge press operator 1 week post discharge and to discuss the best time to restart aspirin and to reconsider anticoagulation despite not having actual clot in DIVYA as previously thought. He was advised that if his symptoms resume or develop new ones or feel unwell for any reason, to call his PCP first and if his PCP cannot entertain him due to scheduling issues alone, to call [facility] if the issue is nonemergent. He was advised to call my office regarding any questions, concerns, or further clarifications regarding his discharge plans and/or prescriptions and to take his medications as prescribed. REVIEW OF SYSTEMS: The patient denied any recent headaches, dizziness, fevers, chills, nausea, vomiting, chest pain, shortness of breath, increased cough and/ or sputum production, abdominal pain, diarrhea, constipation, pain and/or increased frequency on urination, myalgias, arthralgias, throat pain, or new skin lesions. The rest of the 14-point review of systems are otherwise unremarkable. PHYSICAL EXAMINATION: Shows the most recent vital signs of records with blood pressure of 129/71, 97.2 degrees Fahrenheit, 61 beats per minute heart rate, 16 per minute respiratory rate, saturating at 94% on room air. General Appearance : The patient is awake, alert, and oriented x3, not in acute distress. HEENT: Normocephalic, atraumatic. PERRLA. Extraocular muscles intact. Negative for icterus. Moist oral mucosa. Negative throat erythema. Neck is soft, supple with no cervical lymphadenopathy. No JVD. Heart: S1, S2 within normal limits. Regular rate and rhythm. No murmurs, rubs, or gallops. Chest: Clear to auscultation bilaterally. Good air entry. No wheezes, rales, or rhonchi. Abdomen is soft, nondistended, nontender. Normoactive bowel sounds x4 quadrants. Extremities: No cyanosis, clubbing or edema. Psychiatric: No active psychosis, depression, suicidal or homicidal ideations. Skin is warm to touch. TIME SPENT: The total time spent evaluating the patient, reviewing pertinent data, and appropriate documentation is 55 minutes. [id number]/[facility] #: [id number] [facility]
[2018-05-26] MEDS ORDERED: D5W 1/2 NS 1000 ML BAG* 1,000 ML IV SCH (23:45)
== END 2018-05-26 16:30 | disposition home or self-care (01) | DRG 378 ==
LOC: ED 19:50 → ICU 22:26 → MED 05-24 09:16
PROVIDERS: ADMIT Internal Medicine; ATTEND Student in an Organized Health Care Education/Training Program
PROC: 30233N1 Transfusion of Nonautologous Red Blood Cells into Peripheral Vein, Percutaneous Approach (ICD-10-PCS; principal; 2018-05-23)
PROC: 0DB98ZX Excision of Duodenum, Via Natural or Artificial Opening Endoscopic, Diagnostic (ICD-10-PCS; 2018-05-23)
PROC: 0DB78ZX Excision of Stomach, Pylorus, Via Natural or Artificial Opening Endoscopic, Diagnostic (ICD-10-PCS; 2018-05-23)
DX: K25.4 Chronic or unspecified gastric ulcer with hemorrhage (principal); Q87.40 Marfan syndrome, unspecified; N17.9 Acute kidney failure, unspecified; K44.9 Diaphragmatic hernia without obstruction or gangrene; I48.91 Unspecified atrial fibrillation; I11.0 Hypertensive heart disease with heart failure; I50.9 Heart failure, unspecified; E78.00 Pure hypercholesterolemia, unspecified; M19.90 Unspecified osteoarthritis, unspecified site; Z96.1 Presence of intraocular lens; D64.9 Anemia, unspecified; F90.9 Attention-deficit hyperactivity disorder, unspecified type; I25.5 Ischemic cardiomyopathy; G89.29 Other chronic pain; K59.00 Constipation, unspecified; K22.2 Esophageal obstruction; F40.01 Agoraphobia with panic disorder; F31.9 Bipolar disorder, unspecified; Z86.19 Personal history of other infectious and parasitic diseases; Z95.5 Presence of coronary angioplasty implant and graft; Z82.49 Family history of ischemic heart disease and other diseases of the circulatory system; Z87.891 Personal history of nicotine dependence; Z98.1 Arthrodesis status; Z80.0 Family history of malignant neoplasm of digestive organs; Z72.89 Other problems related to lifestyle
CPT/HCPCS: 36415; 70450; 71045; 80048; 80053; 80164; 82272; 82553; 83735; 83880; 84100; 84484; 85014; 85018; 85025; 85027; 85610; 85730; 86850; 86900; 86901; 86922; 87040; 87077; 88305; 93005; 99156; 99285; A9270-GY; J1650; J1940; J2250; J3010; P9016; P9040

== ENCOUNTER 2018-06-25 14:04 | Inpatient (IN) | payer MEDICARE, MEDICAID ==
--- OUTSIDE RECORDS SUMMARY | 2018-06-25 14:12 | XMS REPORT | Continuity of Care Document ---
:1950 External Reference #:[id number] Author Name Wale Bagley MD Address [address] [place] [address] Care Team Providers Name Role Phone Wale Bagley MD Care Team Information Teaching Pastor Unavailable David Putnam E. III, MD Primary Care Physician Unavailable Payers Type Date Identification Numbers Payment Provider Subscriber Policy Number: [id number] Medicare [place] PayID: [id number] [address] [place] [address] Policy Number: [id number] Medicaid [place] Juan Farah PayID: [id number] [address] [place] [address] Advance Directives Description No Information Available Problems Date Description Provider Status Onset: 09/04/2013 Atrial fibrillation Wale Bagley MD Active Onset: 01/26/2011 Hyperlipidemia Wale Bagley MD Active Onset: 01/27/2010 Essential hypertension Wale Bagley MD Active Onset: 03/20/2009 Coronary arteriosclerosis Wale Bagley MD Active Family History Description No Information Available Social History Type Date Description Comments Sex Unknown Tobacco Use Start: Unknown Never Smoked Cigarettes Tobacco Use Start: Unknown End: Unknown Patient is a former smoker Smoking Status Reviewed: 07/14/17 Patient is a former smoker Allergies, Adverse Reactions, Alerts Description No Known Drug Allergies Medications Medication Date Status Form Strength Qnty SIG Indications Ordering Provider Toprol XL 07/23/ Active Tablets ER 50mg 90tabs 1 by Cristiane Grewal 24HR mouth [place], every day [employer]S HANGER Amlodipine 07/23/ Active Tablets 5mg 90tabs 1 by Cristiane Montes 2017 mouth [place], every day [employer]ER Amiodarone HCL 12/28/ Active Tablets 200mg 90tabs 1 by Cristiane 2016 mouth [place]rzak, every day [employer] H[employer]ER Spironolactone 10/03/ Active Tablets 25mg 90tabs 1 by Cristiane 2015 mouth [place]ak, every day [employer] Altace 10/03/ Active Capsules 5mg 90caps 1 by Cristiane 2015 mouth [place]ak, every day [employer] H[employer]ER Depakote / Active Tablets DR 500mg 2 by Unknown 0000 mouth every day Lorazepam / Active Tablets 1mg 1 by Unknown 0000 mouth AT bedtime and needed for anxiety Modafinil / Active Tablets 200mg 1 by Unknown 0000 mouth two times a day Tylenol 8 Hour / Active Tablets ER 650mg 1 by Unknown 0000 mouth q4hrs needed for pain Aspirin / Active Tablets DR 81mg 1 by Unknown 0000 mouth every day Plavix 02/05/ Hx Tablets 75mg 30tabs 1 by Gilmer Monet - osito Madrigal MD 07/14/ day 2017 Toprol XL 10/03/ Hx Tablets ER 100mg 30tabs 1 by Gilmer 2015 - 24HR osito Madrigal MD 07/23/ 2018 [place] / Hx Tablets 5-325mg 1-2 Unknown 0000 - tablets 07/14/ by mouth 2018 every 6 hours needed for pain Seroquel / Hx Tablets 100mg 1 by Unknown 0000 - mouth AT 07/14/ bedtime 2018 Immunizations Description No Information Available Vital Signs Date Vital Result Comment 07/23/2017 10:04am Height 72 inches 6'0" Weight 220.25 lb BMI (Body Mass Index) 29.9 kg/m2 BP Systolic 158 mmHg 168/96 right BP Diastolic 96 mmHg 168/96 right Heart Rate 47 /min 07/14/2017 3:15pm Height 72 inches 6'0" Weight 220.00 lb BMI (Body Mass Index) 29.8 kg/m2 BP Systolic 184 mmHg BP Diastolic 110 mmHg Heart Rate 68 /min O2 % BldC Oximetry 98 % 01/06/2017 2:53pm Height 72 inches BP Systolic 144 mmHg BP Diastolic 88 mmHg Heart Rate 86 /min 10/04/2015 10:59am Height 72 inches Weight 212.00 lb BMI (Body Mass Index) 28.7 kg/m2 BP Systolic 154 mmHg BP Diastolic 90 mmHg Heart Rate 80 /min 09/04/2013 3:46pm Height 72 inches Weight 240.00 lb BMI (Body Mass Index) 32.5 kg/m2 BP Systolic 110 mmHg BP Diastolic 70 mmHg Heart Rate 60 /min 01/16/2013 3:42pm Height 72 inches Weight 235.00 lb BMI (Body Mass Index) 31.9 kg/m2 BP Systolic 110 mmHg BP Diastolic 72 mmHg Heart Rate 65 /min 09/05/2012 3:36pm Height 72 inches Weight 240.00 lb BMI (Body Mass Index) 32.5 kg/m2 BP Systolic 150 mmHg BP Diastolic 74 mmHg Heart Rate 60 /min 01/26/2011 2:56pm Height 72 inches Weight 256.00 lb BMI (Body Mass Index) 34.7 kg/m2 BP Systolic 120 mmHg BP Diastolic 84 mmHg Heart Rate 60 /min 01/27/2010 2:26pm Height 72 inches Weight 255.00 lb BMI (Body Mass Index) 34.6 kg/m2 BP Systolic 154 mmHg BP Diastolic 80 mmHg Heart Rate 64 /min Respiratory Rate 18 /min 03/20/2009 4:29pm Height 72 inches Weight 250.00 lb BMI (Body Mass Index) 33.9 kg/m2 BP Systolic 152 mmHg BP Diastolic 84 mmHg Heart Rate 65 /min 10/03/2008 4:35pm BP Systolic 152 mmHg BP Diastolic 94 mmHg 10/03/2008 4:35pm Height 72 inches Weight 252.00 lb BMI (Body Mass Index) 34.2 kg/m2 BP Systolic 150 mmHg BP Diastolic 102 mmHg Heart Rate 60 /min 01/10/2008 1:41pm Height 74 inches Weight 257.00 lb BMI (Body Mass Index) 33.0 kg/m2 BP Systolic 148 mmHg BP Diastolic 96 mmHg Heart Rate 76 /min 12/14/2007 10:06am Height 74 inches Weight 261.00 lb BMI (Body Mass Index) 33.5 kg/m2 BP Systolic 144 mmHg BP Diastolic 90 mmHg Heart Rate 64 /min Body Temperature 97.1 F Body Temperature 36.2 C Results Test Date Facility Test Result H/L Range Note Order 07/23/2017 [facility] EKG <pending> Protime W/Inr 02/04/2017 [facility] [address] Normalized Ratio [place] [address] [phone] Protime W/Inr 01/21/2017 [facility] 2.[address] [place] [address] [phone] Protime W/Inr 01/12/2017 [facility] 2.[address] [place] [address] [phone] Protime W/Inr 01/04/2017 [facility] 2.[address] [place] [address] [phone] Protime W/Inr 01/01/2017 [facility] 1.[address] [place] [address] [phone] Protime W/Inr 12/30/2016 [facility] 3.[address] [place] [address] [phone] Protime W/Inr 12/28/2016 [facility] 4.[address] [place] [address] [phone] Procedures Date Code Description Status 07/23/2017 57194 Electrocardiogram Complete Completed 02/03/2017 54779 Doppler Echocardiography Color Flow Velocity Mapping Completed 02/03/2017 04324 Doppler Echocardiography Complete Completed 02/03/2017 90898 Echocardiography Transesophageal W/Probe Place/Image Completed Acq/Report 12/23/2016 10719 Doppler Echocardiography Color Flow Velocity Mapping Completed 12/23/2016 48693 Doppler Echocardiography Complete Completed 12/23/2016 09470 Echocardiography Transesophageal W/Probe Place/Image Completed Acq/Report 12/23/2016 24461 Electrocardiogram Interpretation & Report Only Completed 12/23/2016 22296 Percutaneous Transcath Closure L Atrial Appendage W/ Completed Endocardial 10/08/2015 49094 Electrocardiogram Interpretation & Report Only Completed 10/07/2015 71737 Electrocardiogram Interpretation & Report Only Completed 09/05/2014 63180 Doppler Echocardiography Color Flow Velocity Mapping Completed 09/05/2014 86172 Doppler Echocardiography Complete Completed 09/05/2014 28445 Echocardiography Transesophageal W/Probe Place/Image Completed Acq/Report 09/03/2014 39676 Comprehensive Electophysiologic Evaluation Insertion Completed Electrode 09/03/2014 52182 Intracardiac Electrophysiologic 3Dimensional Mapping Completed 08/31/2014 18371 Coronary Angiography With Left Heart Catheterization Completed 08/30/2014 03151 Doppler Echocardiography Color Flow Velocity Mapping Completed 08/30/2014 35102 Doppler Echocardiography Complete Completed 08/30/2014 07907 Echocardiography Transesophageal W/Probe Place/Image Completed Acq/Report 09/04/2013 66905 Electrocardiogram Complete Completed 01/16/2013 89681 Electrocardiogram Complete Completed 09/05/2012 58853 Electrocardiogram Complete Completed 01/26/2011 93503 Electrocardiogram Complete Completed 03/20/2009 58129 Electrocardiogram Complete Completed 10/03/2008 31453 Electrocardiogram Complete Completed 03/28/2008 86563 Echocardiography Transthoracic W/Interpretation & Report Completed 03/28/2008 16447 Doppler Echocardiography Color Flow Velocity Mapping Completed 03/28/2008 90533 Doppler Echocardiography Complete Completed 03/28/2008 03283 Cardiovascular Stress Test W/Interpretation & Report Completed 12/14/2007 64448 Electrocardiogram Complete Completed 12/07/2007 43666 Imaging Supervision Pulmonary/Coronary Angiography Completed 12/07/2007 63203 Imaging Supervision Ventricular/Atrial Angiography Completed 12/07/2007 47898 Injection For Coronary Angiography Completed 12/07/2007 88759 Injection For Left Ventricular Or Atrial Angiography Completed 12/07/2007 53697 Heart Catheterization Left Percutaneous Completed 12/07/2007 58991 Doppler Echocardiography Color Flow Velocity Mapping Completed 12/07/2007 15730 Doppler Echocardiography Complete Completed 12/07/2007 90641 Echocardiography Complete W/Out Spectral Or Color Doppler Completed ECHO 12/07/2007 21729 Transcatheter Placement Intracoronary Stent Percut, Single Completed Encounters Type Date Location Provider Dx Diagnosis Office Visit 07/23/2017 CMP Cardiology AT [facility] I25.10 [facility] 10:00a [place]/Alfonso Bagley MD disease of algaaciq coronary artery w/o ang pctrs I10 Essential (primary) hypertension I48.0 Paroxysmal atrial fibrillation R00.1 Bradycardia, unspecified Office Visit 01/06/2017 8:37a CMP Cardiology AT [facility] I25.10 [facility] heart Nikki Bagley MD disease of algaaciq coronary artery w/o ang pctrs I48.0 Paroxysmal atrial fibrillation I42.0 Dilated cardiomyopathy I10 Essential (primary) hypertension 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 Office Visit 10/08/2015 1:29p CMP Neurology Emily CUI MD R53.1 Weakness Office Visit 10/04/2015 10:13a [facility] Cardiology AT Wale Hassan I25.10 [facility] heart [place]/Alfonso Bagley MD disease of algaaciq coronary artery w/o ang pctrs I48.0 Paroxysmal atrial fibrillation I42.0 Dilated cardiomyopathy E78.0 Pure hypercholesterolemia I10 Essential (primary) hypertension Plan of Treatment Future Appointment(s):09/14/2018 11:00 am - Wale Bagley MD at [facility] Cardiology AT Lusjltwj09/09/2018 - Wale Bagley MDI25.10 [facility] heart disease of algaaciq coronary artery w/o ang [id number] Essential (primary) kbagcmobvxenB53.0 Paroxysmal atrial kqbvnewaesecF21.1 Bradycardia, unspecified
--- OUTSIDE RECORDS SUMMARY | 2018-06-25 14:12 | XMS REPORT | Continuity of Care Document ---
:1950 External Reference #:[id number] Author Name Sabino Daria Care Team Providers Name Role Phone David Putnam III, MD Primary Care Physician Unavailable Payers Type Date Identification Numbers Payment Provider Subscriber Policy Number: [id number] Medicare Mo Farah PayID: [id number] [address] [place] [address] Policy Number: [id number] Medicaid Mo Farah PayID: [id number] [address] [place] [address] Advance Directives Description No Information Available Problems Date Description Provider Status Onset: 11/01/2015 Cervical spondylosis with myelopathy Kishor Finn M.D. Active Onset: 12/11/2015 Convalescence after surgery Kishor Finn M.D. Active Onset: 02/10/2016 Neck pain Kishor Finn M.D. Active Onset: 04/16/2018 Atrial fibrillation Jame Chiu M.D. Active Onset: 04/16/2018 Acute systolic heart failure Jame Chiu M.D. Active Onset: 04/16/2018 Bipolar disorder Jame Chiu M.D. Active Onset: 04/16/2018 Chronic ischemic heart disease Jame Chiu M.D. Active Onset: 04/20/2018 Acute respiratory failure with hypoxia Flakito Lubin MD Active Family History Date Family Member(s) Problem(s) Comments General Heart Disease General Colon Cancer Social History Type Date Description Comments Sex Unknown Marital Status Lives With Occupation Retired ETOH Use Rarely consumes alcohol Tobacco Use Start: Unknown End: Patient is a former Quit 2001; smoked Unknown smoker for 15 years Recreational Drug Use Denies Drug Use Smoking Status Reviewed: 06/21/18 Patient is a former Quit 2001; smoked smoker for 15 years Exercise Type/Frequency Exercises sporadically limited due to ankle pain Allergies, Adverse Reactions, Alerts Description No Known Drug Allergies Medications Medication Date Status Form Strength Qnty SIG Indications Ordering Provider Blood Pressure 04/26/ Active Misc 1unit bp machine I10 David Gonzales Monitor 2018 s for home bp Indy, Digital/Manual monitoring M.Beverly Inflate Custom Shoe For 01/26/ Active Large shoe M79.671 David Coto Foot 2017 for r foot Indy, to Juan accomodate brace Metoprolol / Active Tablets ER 50mg one tab Unknown Succinate ER 0000 24HR daily Ramipril / Active Capsules 5mg 1 by mouth Unknown 0000 every day Amiodarone HCL / Active Tablets 200mg once daily Kevyn 0000 , MD Wale Amlodipine / Active Tablets 5mg 1 by mouth Unknown Besylate 0000 every day Olanzapine / Active Tablets 5mg 1 po at Unknown 0000 bedtime Divalproex / Active Tablets DR 500mg 3 tabs Unknown Sodium 0000 daily in the morning Pantoprazole / Active Tablets DR 40mg 1 by mouth Unknown Sodium 0000 twice a day Keflex 05/21/ Hx Capsules 500mg 14cap 1 by mouth R31.9 David Gonzales 2016 twice a day [place], 06/23/ M.D. 2018 Sulfamethoxazole 01/26/ Hx Tablets 800-160mg 20tab 1 by mouth R35.0 David Gonzales /Trimethoprim DS 2016 twice a day Indy, 02/01/ M.DMercy 2017 Ibuprofen 08/21/ Hx Tablets 600mg 90tab 1 by mouth F31.9 Jame 2016 three times [place]z, 06/21/ a day as M.DMercy 2019 needed Hydrocodone-Acet 03/17/ Hx Tablets 5-325mg 60tab cancel M54.2 David leong 2015 previous [place], 06/23/ refill from M.D. 2018 04/13/17 Hydrocodone-Acet 02/09/ Hx Tablets 10-325mg 90tab 1 by mouth M54.2 Kishor aminoleo 2015 every 6 [place], 10/04/ hours as M.D. 2016 needed pain Tramadol HCL 12/29/ Hx Tablets 50mg 90tab 1 by mouth Arelis Iverson 2015 every 6 [place], 01/25/ hours as M.D. 2016 needed pain Hydrocodone-Acet 12/13/ Hx Tablets 10-325mg 120ta 1 by mouth Kishor leong 2015 - every 6 [place], 02/09/ hours as M.D. 2015 needed pain Hydrocodone-Acet 12/10/ Hx Tablets 5-325mg 60tab 1-2 by Arelis leong 2015 mouth every [place], hours as M.D. 2015 needed pain Gibson 11/09/ Hx Tablets 5-325mg 90tab 1-2 by Kishor 2015 mouth every [place], hours as M.D. 2015 needed pain Levofloxacin 03/21/ Hx Tablets 750mg 14tab 1 tab by Jacinto 2012 mouth every , hours M.D. 2012 Levofloxacin 03/21/ Hx Tablets 500mg 14tab 1 po qd Jacinto 2012 A[place], 12/17/ M.D. 2016 Cefuroxime 00/ Hx Tablets 500mg 1 by mouth Unknown Axetil 0000 - twice a day 2016 Doxycycline / Hx Capsules 100mg one tablet Unknown Hyclate 0000 - twice daily 2016 Digoxin 00/ Hx Tablets 125mcg 1 by mouth Unknown 0000 - every day 2016 Multaq 00/ Hx Tablets 400mg 1 by mouth Unknown 0000 - twice a day 2016 Xarelto 00/ Hx Tablets 20mg 1 by mouth Unknown 0000 - every day 2016 Aspirin Low / Hx Chewtabs 81mg 1 by mouth Unknown Strength 0000 - every day 2018 Spironolactone 00/ Hx Tablets 25mg 1 by mouth Unknown 0000 - every day 2018 Depakote ER 00/ Hx Tablets ER 500mg 1 by mouth Unknown 0000 - 24HR every night 06/21/ at bedtime 2018 Hydrocodone-Acet 00/ Hx Tablets 5-325mg 1 by mouth Unknown aminophen 0000 - every 4-6 12/10/ hours prn. 2015 Seroquel 00/00/ Hx Tablets 50mg take 1 Unknown 0000 - tablet by 02/22/ mouth at 2017 bedtime Warfarin Sodium 00/00/ Hx Tablets 2mg Wed, Wed, Unknown 0000 - Wednesday. 2016 Warfarin Sodium 00/00/ Hx Tablets 3mg Tues, Unknown 0000 - , Sat, Wed Modafinil 00/00/ Hx Tablets 200mg 1 by mouth Unknown 0000 - 2 times a 2018 Lorazepam 00/00/ Hx Tablets 1mg 1 at Unknown 0000 - bedtime prn 2018 Cefpodoxime 00/00/ Hx Tablets 200mg 1 by mouth Unknown Proxetil 0000 - twice a day 2016 Plavix 00/00/ Hx Tablets 75mg 1 by mouth Unknown 0000 - every day 2016 Iron Slow 00/00/ Hx Tablets ER 143(45Fe) take one Unknown Release 0000 - mg capsule/tab daily 2018 by mouth Warfarin Sodium 00/00/ Hx Tablets 5mg Unknown 0000 - 2018 Immunizations CPT Code Status Date Vaccine Lot # [id number] Given 01/19/2018 Pneumococcal Conjugate Vaccine 13 Valent For [id number] Intramuscular Use Vital Signs Date Vital Result Comment 06/21/2018 4:56pm Height 73 inches 6'1" Weight 259.00 lb Heart Rate 55 /min BP Systolic Sitting 130 mmHg BP Diastolic Sitting 82 mmHg O2 % BldC Oximetry 91 % BMI (Body Mass Index) 34.2 kg/m2 04/26/2018 3:44pm Height 73 inches 6'1" Weight 247.00 lb Heart Rate 86 /min BP Systolic Sitting 112 mmHg BP Diastolic Sitting 74 mmHg O2 % BldC Oximetry 95 % BMI (Body Mass Index) 32.6 kg/m2 02/10/2018 4:59pm Height 73 inches 6'1" Weight 235.00 lb Heart Rate 69 /min BP Systolic Sitting 122 mmHg BP Diastolic Sitting 78 mmHg O2 % BldC Oximetry 94 % BMI (Body Mass Index) 31.0 kg/m2 01/19/2018 12:54pm Height 73 inches 6'1" Weight 230.00 lb Heart Rate 65 /min BP Systolic 130 mmHg 142/70 right arm BP Diastolic 64 mmHg 142/70 right arm O2 % BldC Oximetry 95 % BMI (Body Mass Index) 30.3 kg/m2 07/20/2017 1:57pm Height 73 inches 6'1" Weight 215.00 lb Heart Rate 78 /min BP Systolic 174 mmHg BP Diastolic 110 mmHg Respiratory Rate 16 /min BMI (Body Mass Index) 28.4 kg/m2 06/24/2017 11:33am Height 73 inches 6'1" Weight 200.00 lb Heart Rate 72 /min BP Systolic Sitting 134 mmHg BP Diastolic Sitting 94 mmHg Respiratory Rate 16 /min BMI (Body Mass Index) 26.4 kg/m2 05/21/2017 11:33am Height 73 inches 6'1" Weight 209.00 lb Heart Rate 82 /min BP Systolic Sitting 166 mmHg 210/130 initially by nurse BP Diastolic Sitting 108 mmHg 210/130 initially by nurse Body Temperature 98.0 F O2 % BldC Oximetry 97 % BMI (Body Mass Index) 27.6 kg/m2 02/23/2017 2:30pm Height 73 inches 6'1" Weight 206.00 lb with ankle brace Heart Rate 68 /min BP Systolic Sitting 150 mmHg LA reg cuff BP Diastolic Sitting 88 mmHg LA reg cuff BP Systolic Standing 148 mmHg la repeat sitting BP Diastolic Standing 98 mmHg la repeat sitting BMI (Body Mass Index) 27.2 kg/m2 Ejection Fraction 25% echo 12/08/16 01/26/2017 1:00pm Weight 198.38 lb Heart Rate 66 /min BP Systolic Sitting 134 mmHg BP Diastolic Sitting 70 mmHg Body Temperature 97.9 F O2 % BldC Oximetry 93 % 12/18/2016 10:47am Height 74 inches 6'2" Weight 201.38 lb Heart Rate 56 /min BP Systolic 126 mmHg BP Diastolic 70 mmHg Body Temperature 97.5 F O2 % BldC Oximetry 98 % BMI (Body Mass Index) 25.9 kg/m2 08/21/2016 2:43pm Height 74 inches 6'2" Weight 195.00 lb Heart Rate 64 /min BP Systolic 145 mmHg BP Diastolic 92 mmHg Respiratory Rate 15 /min Pain Level 5 BMI (Body Mass Index) 25.0 kg/m2 03/17/2016 9:34am Height 74 inches 6'2" Weight 207.00 lb Heart Rate 82 /min BP Systolic Sitting 140 mmHg BP Diastolic Sitting 80 mmHg Pain Level 4 BMI (Body Mass Index) 26.6 kg/m2 02/10/2016 10:23am Height 74 inches 6'2" Weight 215.00 lb Heart Rate 78 /min BP Systolic Sitting 140 mmHg BP Diastolic Sitting 80 mmHg Pain Level 3 BMI (Body Mass Index) 27.6 kg/m2 12/30/2015 11:23am Height 74 inches 6'2" Weight 200.00 lb Heart Rate 66 /min BP Systolic Sitting 130 mmHg BP Diastolic Sitting 78 mmHg Pain Level 8 BMI (Body Mass Index) 25.7 kg/m2 12/12/2015 8:41am Height 74 inches 6'2" Weight 200.00 lb Pain Level 3 BMI (Body Mass Index) 25.7 kg/m2 12/11/2015 2:22pm Height 74 inches 6'2" Weight 200.00 lb Heart Rate 72 /min BP Systolic Sitting 118 mmHg BP Diastolic Sitting 74 mmHg Pain Level 2 BMI (Body Mass Index) 25.7 kg/m2 11/18/2015 3:07pm Height 74 inches 6'2" Weight 200.00 lb Heart Rate 78 /min BP Systolic Sitting 120 mmHg BP Diastolic Sitting 80 mmHg Pain Level 0 BMI (Body Mass Index) 25.7 kg/m2 11/13/2015 1:11pm Height 74 inches 6'2" Weight 200.00 lb Heart Rate 74 /min BP Systolic 109 mmHg BP Diastolic 71 mmHg BMI (Body Mass Index) 25.7 kg/m2 11/01/2015 2:59pm Height 74 inches 6'2" Weight 215.00 lb Heart Rate 76 /min BP Systolic Sitting 104 mmHg BP Diastolic Sitting 78 mmHg Pain Level 4 BMI (Body Mass Index) 27.6 kg/m2 11/01/2015 9:04am Height 74 inches 6'2" Weight 215.00 lb Heart Rate 68 /min BP Systolic Sitting 128 mmHg BP Diastolic Sitting 94 mmHg Respiratory Rate 14 /min BMI (Body Mass Index) 27.6 kg/m2 10/31/2015 9:21am Height 74 inches 6'2" Weight 215.00 lb Heart Rate 72 /min BP Systolic Sitting 118 mmHg BP Diastolic Sitting 78 mmHg Respiratory Rate 14 /min BMI (Body Mass Index) 27.6 kg/m2 03/16/2013 8:16am Height 73 inches 6'1" Weight 235.00 lb Heart Rate 85 /min BP Systolic 137 mmHg BP Diastolic 87 mmHg BMI (Body Mass Index) 31.0 kg/m2 Results Test Date Facility Test Result H/L Range Note Laboratory test 05/22/2018 [facility] Partial 41.2 seconds High 26.0-36.[address] [place] [address] PTT [phone] CBC Auto Diff 05/22/2018 [facility] White Blood 7.0 10^3/uL N 3.5-10.[address] [place] [address] [phone] Red Blood Count 2.16 10^6/uL Low 4.00-5.40 Hemoglobin 7.0 g/dL Low 14.0-18.0 Hematocrit 21 % Low 42-52 Mean Corpuscular Volume 96 fL High 80-94 Mean Corpuscular Hemoglobin 32 pg High 27-31 Mean Corpuscular HGB Conc 34 g/dL N 31-36 Red Cell Distribution Width 15 % N 10.5-15 Platelet Count 230 10^3/uL N 150-450 Mean Platelet Volume 7.8 fL N 7.4-10.4 Abs Neutrophils 4.6 10^3/uL N 1.5-7.7 Abs Lymphocytes 1.8 10^3/uL N 1.0-4.8 Abs Monocytes 0.4 10^3/uL N 0-0.8 Abs Eosinophils 0.1 10^3/uL N 0-0.6 Abs Basophils 0 10^3/uL N 0-0.2 Abs Nucleated RBC 0.1 10^3/uL Granulocyte % 65.5 % Lymphocyte % 25.7 % Monocyte % 6.3 % Eosinophil % 2.0 % Basophil % 0.5 % Nucleated Red Blood Cells % 0.7 Laboratory test 05/22/2018 [facility] B-Type 51 pg/mL <=[address] [place] [address] Peptide BNP [phone] Inr/Protime 05/22/2018 [facility] Inr 2.22 High 0.77-1.[address] [place] [address] [phone] Comp Metabolic 05/22/2018 [facility] Sodium 139 N 135-[address] mmol/L [place], [place] [id number] [phone] Potassium 4.9 mmol/L N 3.5-5.0 Chloride 105 mmol/L N 101-111 Co2 Carbon Dioxide 29 mmol/L N 22-32 Anion Gap 5 mmol/L N 2-11 Glucose 98 mg/dL N 70-100 Blood Urea Nitrogen 65 mg/dL High 6-24 Creatinine 1.79 mg/dL High 0.67-1.17 BUN/Creatinine Ratio 36.3 High 8-20 Calcium 9.0 mg/dL N 8.6-10.3 Total Protein 5.7 g/dL Low 6.4-8.9 Albumin 3.5 g/dL N 3.2-5.2 Globulin 2.2 g/dL N 2-4 Albumin/Globulin Ratio 1.6 N 1-3 Total Bilirubin 0.20 mg/dL N 0.2-1.0 Alkaline Phosphatase 51 U/L N 34-104 Alt 11 U/L N 7-52 Ast 19 U/L N 13-39 Egfr Non- 38.2 >60 Egfr 46.2 >60 1 Laboratory test 05/22/2018 [facility] Troponin-I 0.02 ng/mL < 0.[address] (TnI) [place] [address] [phone] CKMB 05/22/2018 [facility] CKMB ng/mL 6.2 ng/mL N 0.6-6.[address] [place] [address] [phone] Laboratory test 05/22/2018 [facility] Valproic Acid 41.0 g/mL Low 50-[address] (Depakene) [place] [address] [phone] Type & Screen 05/22/2018 [facility] Patient Blood O Positive [address] [place] [address] [phone] Antibody Screen NEGATIVE Laboratory test 05/22/2018 [facility] Packed Cells SEE RESULTS [address] BELO <SEE NOTE> [place] [address] [phone] Blood Culture SEE RESULT BELOW 4 Inr/Protime 04/28/2018 [facility] Inr 2.36 High 0.77-1.[address] [place] [address] [phone] Protime W/ Inr 04/26/2018 [facility] Prothrombin Time 35.6 Inr 3.0 Laboratory 04/16/2018 [facility] Lactic Acid 1.1 mmol/L N 0.5- 2.0 5 test finding [address] [place] [address] [phone] Inr/Protime 04/16/2018 [facility] Inr 0.92 N 0.77-1.[address] [place] [address] [phone] Laboratory 04/16/2018 [facility] B-Type 648 pg/mL High <=[address] [place] [address] Peptide BNP [phone] CBC Auto Diff 04/16/2018 [facility] White Blood 8.0 N 3.5- 10.[address] Count 10^3/[place] [address] [phone] Red Blood Count 4.00 10^6/uL N 4.00-5.40 Hemoglobin 12.5 g/dL Low 14.0-18.0 Hematocrit 38 % Low 42-52 Mean Corpuscular Volume 95 fL High 80-94 Mean Corpuscular Hemoglobin 31 pg N 27-31 Mean Corpuscular HGB Conc 33 g/dL N 31-36 Red Cell Distribution Width 14 % N 10.5-15 Platelet Count 184 10^3/uL N 150-450 Mean Platelet Volume 8.3 fL N 7.4-10.4 Abs Neutrophils 5.8 10^3/uL N 1.5-7.7 Abs Lymphocytes 1.6 10^3/uL N 1.0-4.8 Abs Monocytes 0.4 10^3/uL N 0-0.8 Abs Eosinophils 0.2 10^3/uL N 0-0.6 Abs Basophils 0.1 10^3/uL N 0-0.2 Abs Nucleated RBC 0 10^3/uL Granulocyte % 72.3 % N 38-83 Lymphocyte % 19.5 % Low 25-47 Monocyte % 4.6 % N 0-7 Eosinophil % 2.8 % N 0-6 Basophil % 0.8 % N 0-2 Nucleated Red Blood Cells % 0.1 Comp Metabolic Panel 04/16/2018 [facility] Sodium 139 mmol/L N 135-[address] [place] [address] [phone] Potassium 4.2 mmol/L N 3.5-5.0 Chloride 106 mmol/L N 101-111 Co2 Carbon Dioxide 27 mmol/L N 22-32 Anion Gap 6 mmol/L N 2-11 Glucose 120 mg/dL High 70-100 Blood Urea Nitrogen 29 mg/dL High 6-24 Creatinine 0.87 mg/dL N 0.67-1.17 BUN/Creatinine Ratio 33.3 High 8-20 Calcium 9.2 mg/dL N 8.6-10.3 Total Protein 6.7 g/dL N 6.4-8.9 Albumin 3.8 g/dL N 3.2-5.2 Globulin 2.9 g/dL N 2-4 Albumin/Globulin Ratio 1.3 N 1-3 Total Bilirubin 0.40 mg/dL N 0.2-1.0 Alkaline Phosphatase 80 U/L N 34-104 Alt 18 U/L N 7-52 Ast 18 U/L N 13-39 Egfr Non- 87.8 >60 Egfr 106.2 >60 6 Laboratory test 04/16/2018 [facility] Troponin-I 0.07 ng/mL High <0.[address] (TnI) [place] [address] [phone] Thyroxine 6.00 ?g/dL Low 6.09-12.23 TSH (Thyroid Stim Horm) 2.42 mcIU/mL N 0.34-5.60 Laboratory test 01/05/2018 [facility] Valproic Acid 44.0 g/mL Low 50-[address] (Depakene) [place] [address] [phone] Urinalysis 01/05/2018 [facility] Urine Color Yellow [place] [address] [place] [address] [phone] Urine Appearance Clear Urine Specific [place] 1.021 N 1.010-1.030 Urine pH 5.0 N 5-9 Urine Urobilinogen Negative Negative Urine Ketones Negative Negative Urine Protein Negative Negative Urine Leukocytes Negative Negative Urine Blood Negative Negative Urine Nitrite Negative Negative Urine Bilirubin Negative Negative Urine Glucose Negative Negative Urine 01/05/2018 [facility] Amphetamine Ur Presumptive Abnormal None [address] Screen Posi <SEE Detect ED & [place] [address] NOTE> Clinic [phone] Barbiturates Urine Screen None Detected None Detect Benzodiazepine Urine Screen None Detected None Detect Urine Cannabinoids Screen Presumptive Posi <SEE NOTE> Abnormal None Detect 9 Urine Cocaine Screen None Detected None Detect Urine Opiates Screen None Detected None Detect Urine Phencyclidine Screen None Detected None Detect 10 Laboratory test 01/05/2018 [facility] Acetaminophen < 15 g/mL [address] [place] [address] [phone] Alcohol < 10 mg/dL N <10 Salicylate < 2.50 mg/dL <30 Comp Metabolic Panel 01/05/2018 [facility] Sodium 140 mmol/L N 135-[address] [place] [address] [phone] Potassium 4.3 mmol/L N 3.5-5.0 Chloride 104 mmol/L N 101-111 Co2 Carbon Dioxide 27 mmol/L N 22-32 Anion Gap 9 mmol/L N 2-11 Glucose 130 mg/dL High 70-100 Blood Urea Nitrogen 40 mg/dL High 6-24 Creatinine 1.67 mg/dL High 0.67-1.17 BUN/Creatinine Ratio 24.0 High 8-20 Calcium 9.3 mg/dL N 8.6-10.3 Total Protein 6.9 g/dL N 6.4-8.9 Albumin 4.1 g/dL N 3.2-5.2 Globulin 2.8 g/dL N 2-4 Albumin/Globulin Ratio 1.5 N 1-3 Total Bilirubin 0.30 mg/dL N 0.2-1.0 Alkaline Phosphatase 79 U/L N 34-104 Alt 13 U/L N 7-52 Ast 21 U/L N 13-39 Egfr Non- 41.4 >60 Egfr 50.1 >60 12 Laboratory test 01/05/2018 [facility] TSH (Thyroid 1.98 mcIU/mL N 0.34-5.[address] Stim Horm) [place] [address] [phone] CBC Auto Diff 01/05/2018 [facility] White Blood 6.9 10^3/uL N 3.5-10.[address] [place] [address] [phone] Red Blood Count 3.68 10^6/uL Low 4.00-5.40 Hemoglobin 11.9 g/dL Low 14.0-18.0 Hematocrit 35 % Low 42-52 Mean Corpuscular Volume 94 fL N 80-94 Mean Corpuscular Hemoglobin 32 pg High 27-31 Mean Corpuscular HGB Conc 34 g/dL N 31-36 Red Cell Distribution Width 14 % N 10.5-15 Platelet Count 223 10^3/uL N 150-450 Mean Platelet Volume 7.0 um3 Low 7.4-10.4 Abs Neutrophils 4.5 10^3/uL N 1.5-7.7 Abs Lymphocytes 1.7 10^3/uL N 1.0-4.8 Abs Monocytes 0.6 10^3/uL N 0-0.8 Abs Eosinophils 0.1 10^3/uL N 0-0.6 Abs Basophils 0.1 10^3/uL N 0-0.2 Abs Nucleated RBC 0 10^3/uL Granulocyte % 64.3 % N 38-83 Lymphocyte % 24.9 % Low 25-47 Monocyte % 8.2 % High 0-7 Eosinophil % 1.3 % N 0-6 Basophil % 1.3 % N 0-2 Nucleated Red Blood Cells % 0.1 Laboratory test 12/29/2017 [facility] Valproic Acid 16.0 Low 50-[address] (Depakene) g/[place] [address] [phone] Lipid Profile 12/29/2017 [facility] Triglycerides 45 mg/dL 13 (Trig/Chol/HDL) [address] [place], [place] [id number] [phone] Cholesterol 219 mg/dL 14 HDL Cholesterol 79.7 mg/dL 15 LDL Cholesterol 130 mg/dL 16 Urine 12/29/2017 [facility] Amphetamine Ur Presumptive Abnormal None 17 Drug SCR [address] Screen Posi <SEE Detect ED & [place] [address] NOTE> Clinic [phone] Barbiturates Urine Screen None Detected None Detect Benzodiazepine Urine Screen None Detected None Detect Urine Cannabinoids Screen Presumptive Posi <SEE NOTE> Abnormal None Detect 18 Urine Cocaine Screen None Detected None Detect Urine Opiates Screen None Detected None Detect Urine Phencyclidine Screen None Detected None Detect 19 Laboratory test 12/29/2017 [facility] TSH (Thyroid 1.08 mcIU/mL N 0.34-5.[address] Stim Horm) [place] [address] [phone] Acetaminophen < 15 g/mL 20 Alcohol < 10 mg/dL N <10 Salicylate 6.00 mg/dL <30 Comp Metabolic Panel 12/29/2017 [facility] Sodium 137 mmol/L N 135-[address] [place] [address] [phone] Potassium 4.3 mmol/L N 3.5-5.0 Chloride 99 mmol/L Low 101-111 Co2 Carbon Dioxide 27 mmol/L N 22-32 Anion Gap 11 mmol/L N 2-11 Glucose 145 mg/dL High 70-100 Blood Urea Nitrogen 38 mg/dL High 6-24 Creatinine 1.77 mg/dL High 0.67-1.17 BUN/Creatinine Ratio 21.5 High 8-20 Calcium 9.9 mg/dL N 8.6-10.3 Total Protein 7.7 g/dL N 6.4-8.9 Albumin 4.5 g/dL N 3.2-5.2 Globulin 3.2 g/dL N 2-4 Albumin/Globulin Ratio 1.4 N 1-3 Total Bilirubin 0.70 mg/dL N 0.2-1.0 Alkaline Phosphatase 84 U/L N 34-104 Alt 14 U/L N 7-52 Ast 23 U/L N 13-39 Egfr Non- 38.7 >60 Egfr 46.8 >60 21 CBC Auto Diff 12/29/2017 [facility] White Blood 9.5 10^3/uL N 3.5-10.[address] [place] [address] [phone] Red Blood Count 3.96 10^6/uL Low 4.00-5.40 Hemoglobin 12.7 g/dL Low 14.0-18.0 Hematocrit 37 % Low 42-52 Mean Corpuscular Volume 94 fL N 80-94 Mean Corpuscular Hemoglobin 32 pg High 27-31 Mean Corpuscular HGB Conc 34 g/dL N 31-36 Red Cell Distribution Width 14 % N 10.5-15 Platelet Count 256 10^3/uL N 150-450 Mean Platelet Volume 7.1 um3 Low 7.4-10.4 Abs Neutrophils 7.4 10^3/uL N 1.5-7.7 Abs Lymphocytes 1.5 10^3/uL N 1.0-4.8 Abs Monocytes 0.6 10^3/uL N 0-0.8 Abs Eosinophils 0 10^3/uL N 0-0.6 Abs Basophils 0 10^3/uL N 0-0.2 Abs Nucleated RBC 0 10^3/uL Granulocyte % 77.4 % N 38-83 Lymphocyte % 16.0 % Low 25-47 Monocyte % 6.1 % N 0-7 Eosinophil % 0.1 % N 0-6 Basophil % 0.4 % N 0-2 Nucleated Red Blood Cells % 0.1 Urinalysis Profile 12/29/2017 [facility] Urine Color Yellow [address] [place] [address] [phone] Urine Appearance Clear Urine Specific [place] 1.026 N 1.010-1.030 Urine pH 5.0 N 5-9 Urine Urobilinogen Negative Negative Urine Ketones Negative Negative Urine Protein Negative Negative Urine Leukocytes Negative Negative Urine Blood Negative Negative Urine Nitrite Negative Negative Urine Bilirubin Negative Negative Urine Glucose Negative Negative CBC Auto Diff 12/15/2017 [facility] White Blood 8.5 10^3/uL N 3.5-10.[address] [place] [address] [phone] Red Blood Count 3.92 10^6/uL Low 4.00-5.40 Hemoglobin 12.9 g/dL Low 14.0-18.0 Hematocrit 37 % Low 42-52 Mean Corpuscular Volume 95 fL High 80-94 Mean Corpuscular Hemoglobin 33 pg High 27-31 Mean Corpuscular HGB Conc 35 g/dL N 31-36 Red Cell Distribution Width 14 % N 10.5-15 Platelet Count 215 10^3/uL N 150-450 Mean Platelet Volume 7.5 um3 N 7.4-10.4 Abs Neutrophils 6.0 10^3/uL N 1.5-7.7 Abs Lymphocytes 1.6 10^3/uL N 1.0-4.8 Abs Monocytes 0.7 10^3/uL N 0-0.8 Abs Eosinophils 0.1 10^3/uL N 0-0.6 Abs Basophils 0.1 10^3/uL N 0-0.2 Abs Nucleated RBC 0 10^3/uL Granulocyte % 70.6 % N 38-83 Lymphocyte % 19.1 % Low 25-47 Monocyte % 8.4 % High 0-7 Eosinophil % 1.2 % N 0-6 Basophil % 0.7 % N 0-2 Nucleated Red Blood Cells % 0.1 Comp Metabolic Panel 12/15/2017 [facility] Sodium 139 mmol/L N 135-[address] [place] [address] [phone] Potassium 3.7 mmol/L N 3.5-5.0 Chloride 102 mmol/L N 101-111 Co2 Carbon Dioxide 29 mmol/L N 22-32 Anion Gap 8 mmol/L N 2-11 Glucose 98 mg/dL N 70-100 Blood Urea Nitrogen 21 mg/dL N 6-24 Creatinine 1.16 mg/dL N 0.67-1.17 BUN/Creatinine Ratio 18.1 N 8-20 Calcium 9.1 mg/dL N 8.6-10.3 Total Protein 7.0 g/dL N 6.4-8.9 Albumin 3.9 g/dL N 3.2-5.2 Globulin 3.1 g/dL N 2-4 Albumin/Globulin Ratio 1.3 N 1-3 Total Bilirubin 0.30 mg/dL N 0.2-1.0 Alkaline Phosphatase 84 U/L N 34-104 Alt 9 U/L N 7-52 Ast 15 U/L N 13-39 Egfr Non- 63.0 >60 Egfr 76.2 >60 22 Laboratory test 12/15/2017 [facility] Lactic Acid 0.8 mmol/L N 0.5-2.[address] [place] [address] [phone] Blood Culture SEE RESULT BELOW 24 CBC Auto Diff 11/23/2017 [facility] White Blood 8.7 10^3/uL N 3.5-10.[address] [place] [address] [phone] Red Blood Count 3.86 10^6/uL Low 4.00-5.40 Hemoglobin 12.5 g/dL Low 14.0-18.0 Hematocrit 38 % Low 42-52 Mean Corpuscular Volume 97 fL High 80-94 Mean Corpuscular Hemoglobin 32 pg High 27-31 Mean Corpuscular HGB Conc 33 g/dL N 31-36 Red Cell Distribution Width 14 % N 10.5-15 Platelet Count 204 10^3/uL N 150-450 Mean Platelet Volume 8.3 um3 N 7.4-10.4 Abs Neutrophils 5.8 10^3/uL N 1.5-7.7 Abs Lymphocytes 2.1 10^3/uL N 1.0-4.8 Abs Monocytes 0.6 10^3/uL N 0-0.8 Abs Eosinophils 0.1 10^3/uL N 0-0.6 Abs Basophils 0.1 10^3/uL N 0-0.2 Abs Nucleated RBC 0 10^3/uL Granulocyte % 66.7 % N 38-83 Lymphocyte % 24.5 % Low 25-47 Monocyte % 6.9 % N 0-7 Eosinophil % 1.0 % N 0-6 Basophil % 0.9 % N 0-2 Nucleated Red Blood Cells % 0 Comp Metabolic Panel 11/23/2017 [facility] Sodium 140 mmol/L N 139-[address] [place] [address] [phone] Potassium 4.1 mmol/L N 3.5-5.0 Chloride 104 mmol/L N 101-111 Co2 Carbon Dioxide 29 mmol/L N 22-32 Anion Gap 7 mmol/L N 2-11 Glucose 123 mg/dL High 70-100 Blood Urea Nitrogen 26 mg/dL High 6-24 Creatinine 1.22 mg/dL High 0.67-1.17 BUN/Creatinine Ratio 21.3 High 8-20 Calcium 9.9 mg/dL N 8.6-10.3 Total Protein 7.7 g/dL N 6.4-8.9 Albumin 4.4 g/dL N 3.2-5.2 Globulin 3.3 g/dL N 2-4 Albumin/Globulin Ratio 1.3 N 1-3 Total Bilirubin 0.50 mg/dL N 0.2-1.0 Alkaline Phosphatase 93 U/L N 34-104 Alt 22 U/L N 7-52 Ast 32 U/L N 13-39 Egfr Non- 59.4 >60 Egfr 76.4 >60 25 Laboratory test 11/23/2017 [facility] Acetaminophen < 15 g/mL [address] [place] [address] [phone] Alcohol < 10 mg/dL N <10 Salicylate < 2.50 mg/dL <30 TSH (Thyroid Stim Horm) 0.88 mcIU/mL N 0.34-5.60 Valproic Acid (Depakene) 90.0 g/mL N 50-100 Urine Drug 10/23/2017 [facility] Amphetamine Ur None Detected None Detect SCR ED & [address] [place] [place] [address] [phone] Barbiturates Urine Screen None Detected None Detect Benzodiazepine Urine Screen None Detected None Detect Urine Cannabinoids Screen Presumptive Posi <SEE NOTE> Abnormal None Detect 27 Urine Cocaine Screen None Detected None Detect Urine Opiates Screen None Detected None Detect Urine Phencyclidine Screen None Detected None Detect 28 Urinalysis Profile 10/23/2017 [facility] Urine Color Yellow [address] [place] [address] [phone] Urine Appearance Clear Urine Specific [place] 1.018 N 1.010-1.030 Urine pH 5.0 N 5-9 Urine Urobilinogen Positive Abnormal Negative Urine Ketones Trace Abnormal Negative Urine Protein Negative Negative Urine Leukocytes Negative Negative Urine Blood Negative Negative Urine Nitrite Negative Negative Urine Bilirubin Negative Negative Urine Glucose Negative Negative Laboratory test 10/23/2017 [facility] Valproic Acid 13.0 g/mL Low 50-[address] (Depakene) [place] [address] [phone] Acetaminophen < 15 g/mL 29 Alcohol < 10 mg/dL N <10 Salicylate < 2.50 mg/dL <30 TSH (Thyroid Stim Horm) 0.81 mcIU/mL N 0.34-5.60 Comp Metabolic Panel 10/23/2017 [facility] Sodium 135 mmol/L Low 139-[address] [place] [address] [phone] Potassium 3.9 mmol/L N 3.5-5.0 Chloride 102 mmol/L N 101-111 Co2 Carbon Dioxide 26 mmol/L N 22-32 Anion Gap 7 mmol/L N 2-11 Glucose 86 mg/dL N 70-100 Blood Urea Nitrogen 44 mg/dL High 6-24 Creatinine 1.63 mg/dL High 0.67-1.17 BUN/Creatinine Ratio 27.0 High 8-20 Calcium 9.8 mg/dL N 8.6-10.3 Total Protein 8.0 g/dL N 6.4-8.9 Albumin 4.6 g/dL N 3.2-5.2 Globulin 3.4 g/dL N 2-4 Albumin/Globulin Ratio 1.4 N 1-3 Total Bilirubin 1.20 mg/dL High 0.2-1.0 Alkaline Phosphatase 106 U/L High 34-104 Alt 35 U/L N 7-52 Ast 114 U/L High 13-39 Egfr Non- 42.5 >60 Egfr 54.7 >60 30 CBC Auto Diff 10/23/2017 [facility] White Blood 7.6 10^3/uL N 3.5-10.[address] [place] [address] [phone] Red Blood Count 4.01 10^6/uL N 4.0-5.4 Hemoglobin 12.7 g/dL Low 14.0-18.0 Hematocrit 38 % Low 42-52 Mean Corpuscular Volume 95 fL High 80-94 Mean Corpuscular Hemoglobin 32 pg High 27-31 Mean Corpuscular HGB Conc 34 g/dL N 31-36 Red Cell Distribution Width 14 % N 10.5-15 Platelet Count 211 10^3/uL N 150-450 Mean Platelet Volume 8.4 um3 N 7.4-10.4 Abs Neutrophils 4.5 10^3/uL N 1.5-7.7 Abs Lymphocytes 2.1 10^3/uL N 1.0-4.8 Abs Monocytes 0.8 10^3/uL N 0-0.8 Abs Eosinophils 0.1 10^3/uL N 0-0.6 Abs Basophils 0.1 10^3/uL N 0-0.2 Abs Nucleated RBC 0 10^3/uL Granulocyte % 60.2 % N 38-83 Lymphocyte % 27.5 % N 25-47 Monocyte % 10.2 % High 0-7 Eosinophil % 1.0 % N 0-6 Basophil % 1.1 % N 0-2 Nucleated Red Blood Cells % 0.1 Basic Metabolic Panel 10/23/2017 [facility] Sodium 140 mmol/L N 139-[address] [place] [address] [phone] Potassium 3.8 mmol/L N 3.5-5.0 Chloride 105 mmol/L N 101-111 Co2 Carbon Dioxide 28 mmol/L N 22-32 Anion Gap 7 mmol/L N 2-11 Glucose 78 mg/dL N 70-100 Blood Urea Nitrogen 36 mg/dL High 6-24 Creatinine 1.49 mg/dL High 0.67-1.17 BUN/Creatinine Ratio 24.2 High 8-20 Calcium 8.6 mg/dL N 8.6-10.3 Egfr Non- 47.2 >60 Egfr 60.7 >60 31 CBC Auto Diff 05/21/2017 [facility] White Blood 6.6 10^3/uL N 3.5-10.[address] [place] [address] [phone] Red Blood Count 4.32 10^6/uL N 4.0-5.4 Hemoglobin 13.2 g/dL Low 14.0-18.0 Hematocrit 40 % Low 42-52 Mean Corpuscular Volume 91 fL N 80-94 Mean Corpuscular Hemoglobin 31 pg N 27-31 Mean Corpuscular HGB Conc 33 g/dL N 31-36 Red Cell Distribution Width 15 % N 10.5-15 Platelet Count 287 10^3/uL N 150-450 Mean Platelet Volume 7 um3 Low 7.4-10.4 Abs Neutrophils 5.0 10^3/uL N 1.5-7.7 Abs Lymphocytes 1.3 10^3/uL N 1.0-4.8 Abs Monocytes 0.4 10^3/uL N 0-0.8 Abs Eosinophils 0 10^3/uL N 0-0.6 Abs Basophils 0 10^3/uL N 0-0.2 Abs Nucleated RBC 0 10^3/uL Granulocyte % 74.7 % N 38-83 Lymphocyte % 19.0 % Low 25-47 Monocyte % 5.5 % N 1-9 Eosinophil % 0.3 % N 0-6 Basophil % 0.5 % N 0-2 Nucleated Red Blood Cells % 0.1 Laboratory test 05/21/2017 [facility] PSA Diagnostic 5.128 High 0-4.000 [address] ng/[place] [address] [phone] Basic Metabolic 05/21/2017 [facility] Sodium 138 N 133-[address] mmol/[place] [address] [phone] Potassium 4.0 mmol/L N 3.5-5.0 Chloride 101 mmol/L N 101-111 Co2 Carbon Dioxide 30 mmol/L N 22-32 Anion Gap 7 mmol/L N 2-11 Glucose 102 mg/dL High 70-100 Blood Urea Nitrogen 20 mg/dL N 6-24 Creatinine 1.02 mg/dL N 0.67-1.17 BUN/Creatinine Ratio 19.6 N 8-20 Calcium 9.4 mg/dL N 8.6-10.3 Egfr Non- 73.3 >60 Egfr 94.3 >60 33 Urinalysis Profile 05/21/2017 [facility] Urine Color Marlene [address] [place] [address] [phone] Urine Appearance Turbid Urine Specific [place] 1.024 N 1.010-1.030 Urine pH 5.0 N 5-9 Urine Urobilinogen Negative Negative Urine Ketones Negative Negative Urine Protein 1+(30 mg/dL) Abnormal Negative Urine Leukocytes 3+ Abnormal Negative Urine Blood 1+ Abnormal Negative Urine Nitrite Negative Negative Urine Bilirubin Negative Negative Urine Glucose Negative Negative Urine White Blood Cell 3+(>20/hpf) Abnormal Absent Urine Red Blood Cell 2+(6-10/hpf) Abnormal Absent Urine Bacteria 1+ Abnormal Absent Urine Squamous Epithelial Cell Present Abnormal Absent Urine Renal Epithelial Cells Present Abnormal Absent Urine Culture And 05/21/2017 [facility] Urine Culture SEE RESULT [address] [place] [address] [phone] Urinalysis Profile 04/12/2017 [facility] Urine Color Marlene N [address] [place] [address] [phone] Urine Appearance Turbid N Urine Specific [place] 1.027 N 1.010-1.030 Urine pH 5.0 N 5-9 Urine Urobilinogen Negative N Negative Urine Ketones Trace Abnormal Negative Urine Protein Negative N Negative Urine Leukocytes Negative N Negative Urine Blood Negative N Negative * * Abnormal Negative 36 Urine Nitrite Negative N Negative Urine Bilirubin Negative N Negative Urine Glucose 1+(50 mg/dL) Abnormal Negative Urine Drug 04/12/2017 [facility] Amphetamine Ur None Detected N None Detect SCR ED & [address] [place] [address] [phone] Barbiturates Urine Screen None Detected N None Detect Benzodiazepine Urine Screen None Detected N None Detect Urine Cannabinoids Screen Presumptive Posi <SEE NOTE> Abnormal None Detect 37 Urine Cocaine Screen None Detected N None Detect Urine Opiates Screen None Detected N None Detect Urine Phencyclidine Screen None Detected N None Detect 38 CBC Auto Diff 04/11/2017 [facility] White Blood 6.8 10^3/uL N 3.5-10.[address] [place] [address] [phone] Red Blood Count 3.98 10^6/uL Low 4.0-5.4 Hemoglobin 12.2 g/dL Low 14.0-18.0 Hematocrit 37 % Low 42-52 Mean Corpuscular Volume 92 fL N 80-94 Mean Corpuscular Hemoglobin 31 pg N 27-31 Mean Corpuscular HGB Conc 33 g/dL N 31-36 Red Cell Distribution Width 16 % High 10.5-15 Platelet Count 193 10^3/uL N 150-450 Mean Platelet Volume 8 um3 N 7.4-10.4 Abs Neutrophils 4.3 10^3/uL N 1.5-7.7 Abs Lymphocytes 1.5 10^3/uL N 1.0-4.8 Abs Monocytes 0.7 10^3/uL N 0-0.8 Abs Eosinophils 0.2 10^3/uL N 0-0.6 Abs Basophils 0 10^3/uL N 0-0.2 Abs Nucleated RBC 0 10^3/uL N Granulocyte % 63.6 % N 38-83 Lymphocyte % 22.4 % Low 25-47 Monocyte % 9.9 % High 1-9 Eosinophil % 3.4 % N 0-6 Basophil % 0.7 % N 0-2 Nucleated Red Blood Cells % 0 N Comp Metabolic Panel 04/11/2017 [facility] Sodium 144 mmol/L N 133-[address] [place] [address] [phone] Potassium 4.1 mmol/L N 3.5-5.0 Chloride 107 mmol/L N 101-111 Co2 Carbon Dioxide 29 mmol/L N 22-32 Anion Gap 8 mmol/L N 2-11 Glucose 102 mg/dL High 70-100 Blood Urea Nitrogen 42 mg/dL High 6-24 Creatinine 1.39 mg/dL High 0.67-1.17 BUN/Creatinine Ratio 30.2 High 8-20 Calcium 9.4 mg/dL N 8.6-10.3 Total Protein 7.5 g/dL N 6.4-8.9 Albumin 4.2 g/dL N 3.2-5.2 Globulin 3.3 g/dL N 2-4 Albumin/Globulin Ratio 1.3 N 1-3 Total Bilirubin 0.40 mg/dL N 0.2-1.0 Alkaline Phosphatase 104 U/L N 34-104 Alt 11 U/L N 7-52 Ast 31 U/L N 13-39 Egfr Non- 51.3 N >60 Egfr 66.0 N >60 39 Laboratory test 04/11/2017 [facility] Acetaminophen < 15 g/mL N [address] [place] [address] [phone] Alcohol < 10 mg/dL N <10 Salicylate < 2.50 mg/dL N <30 TSH (Thyroid Stim Horm) 0.78 mcIU/mL N 0.34-5.60 Valproic Acid (Depakene) 95.0 g/mL N 50-100 Laboratory test 01/29/2017 [facility] B-Type 135 pg/mL High [address] [place] [address] Peptide BNP [phone] Inr/Protime 01/29/2017 [facility] Inr 2.64 High 0.[address] -1.1 [place] [address] 2 [phone] Laboratory test 01/29/2017 [facility] Partial Thrombo 36.9 seconds High 26.[address] Time PTT -36. [place] [address] 3 [phone] CBC Auto Diff 01/29/2017 [facility] White Blood 6.4 10^3/uL N 3.5- [address] Count 10.8 [place] [address] [phone] Red Blood Count 3.89 10^6/uL Low 4.0-5.4 Hemoglobin 10.8 g/dL Low 14.0-18.0 Hematocrit 33 % Low 42-52 Mean Corpuscular Volume 86 fL N 80-94 Mean Corpuscular Hemoglobin 28 pg N 27-31 Mean Corpuscular HGB Conc 32 g/dL N 31-36 Red Cell Distribution Width 18 % High 10.5-15 Platelet Count 281 10^3/uL N 150-450 Mean Platelet Volume 7 um3 Low 7.4-10.4 Abs Neutrophils 3.8 10^3/uL N 1.5-7.7 Abs Lymphocytes 1.7 10^3/uL N 1.0-4.8 Abs Monocytes 0.6 10^3/uL N 0-0.8 Abs Eosinophils 0.3 10^3/uL N 0-0.6 Abs Basophils 0.1 10^3/uL N 0-0.2 Abs Nucleated RBC 0 10^3/uL N Granulocyte % 59.5 % N 38-83 Lymphocyte % 25.9 % N 25-47 Monocyte % 8.7 % N 1-9 Eosinophil % 4.9 % N 0-6 Basophil % 1.0 % N 0-2 Nucleated Red Blood Cells % 0 N Comp Metabolic Panel 01/29/2017 [facility] Sodium 134 mmol/L N 133-[address] [place] [address] [phone] Chloride 103 mmol/L N 101-111 Co2 Carbon Dioxide 26 mmol/L N 22-32 Glucose 83 mg/dL N 70-100 Blood Urea Nitrogen 20 mg/dL N 6-24 Creatinine 1.13 mg/dL N 0.67-1.17 BUN/Creatinine Ratio 17.7 N 8-20 Calcium 8.7 mg/dL N 8.6-10.3 Total Protein 7.2 g/dL N 6.4-8.9 Albumin 3.6 g/dL N 3.2-5.2 Globulin 3.6 g/dL N 2-4 Albumin/Globulin Ratio 1.0 N 1-3 Total Bilirubin 0.30 mg/dL N 0.2-1.0 Alkaline Phosphatase 77 U/L N 34-104 Alt 8 U/L N 7-52 Egfr Non- 65.1 N >60 Egfr 83.8 N >60 42 Potassium TNP mmol/L N 3.5-5.0 43 Anion Gap 5 mmol/L N 2-11 Ast TNP U/L N 13-39 44 Laboratory test 01/29/2017 [facility] Troponin-I (TnI) 0.03 ng/ mL N <0.[address] [place] [address] [phone] Magnesium TNP mg/dL N 1.9-2.7 45 Valproic Acid (Depakene) 33.0 g/mL Low 50-100 Urine Culture And 01/28/2017 [facility] Urine Culture SEE RESULT [address] [place] [address] [phone] Ua Routine 01/26/2017 [facility] Ua Specific 1.020 [place] Ua PH 5 Ua Color yellow Ua Appera cloudy Ua WBC 2 + Ua Protein 100 Ua Glucose Neg Ua Ketones Pos Ua Bilirubin Neg Ua Urobilinogen Neg Ua Nitrite Pos Ua Occult Blood xlg Inr/Protime 01/12/2017 [facility] Inr 2.62 High 0.89-1.[address] [place] [address] [phone] CBC Auto Diff 12/18/2016 [facility] White Blood 9.2 N 3.5- 10.[address] Count 10^3/[place] [address] [phone] Red Blood Count 3.83 10^6/uL Low 4.0-5.4 Hemoglobin 10.7 g/dL Low 14.0-18.0 Hematocrit 33 % Low 42-52 Mean Corpuscular Volume 87 fL N 80-94 Mean Corpuscular Hemoglobin 28 pg N 27-31 Mean Corpuscular HGB Conc 32 g/dL N 31-36 Red Cell Distribution Width 16 % High 10.5-15 Platelet Count 386 10^3/uL N 150-450 Mean Platelet Volume 8 um3 N 7.4-10.4 Abs Neutrophils 6.5 10^3/uL N 1.5-7.7 Abs Lymphocytes 1.6 10^3/uL N 1.0-4.8 Abs Monocytes 0.7 10^3/uL N 0-0.8 Abs Eosinophils 0.3 10^3/uL N 0-0.6 Abs Basophils 0.1 10^3/uL N 0-0.2 Abs Nucleated RBC 0.01 10^3/uL N Granulocyte % 70.4 % N 38-83 Lymphocyte % 17.8 % Low 25-47 Monocyte % 8.0 % N 1-9 Eosinophil % 2.8 % N 0-6 Basophil % 1.0 % N 0-2 Nucleated Red Blood Cells % 0.2 N Laboratory test 12/18/2016 [facility] Ferritin 34.1 ng/mL N 24 -[address] [place] [address] [phone] Iron & Iron Binding 12/18/2016 [facility] Iron 43 g/dL Low 50-[address] [place] [address] [phone] Unsaturated Iron Binding 429 g/dL N Total Iron Binding Capacity 472 g/dL High 250-450 % Iron Saturation 9 % Low 15-55 Laboratory test 12/18/2016 [facility] PSA Screening 3.481 ng/mL N 0-4.000 [address] [place] [address] [phone] Urinalysis 12/18/2016 [facility] Urine Color Yellow N Profile [address] [place] [address] [phone] Urine Appearance Cloudy N Urine Specific [place] 1.018 N 1.010-1.030 Urine pH 6.0 N 5-9 Urine Urobilinogen Negative N Negative Urine Ketones Negative N Negative Urine Protein 1+(30 mg/dL) Abnormal Negative Urine Leukocytes 3+ Abnormal Negative Urine Blood 1+ Abnormal Negative Urine Nitrite Positive Abnormal Negative Urine Bilirubin Negative N Negative Urine Glucose Negative N Negative Urine White Blood Cell 3+(>20/hpf) Abnormal Absent Urine Red Blood Cell 2+(6-10/hpf) Abnormal Absent Urine Bacteria 1+ Abnormal Absent Urine Squamous Epithelial Cell Present Abnormal Absent Urine Culture And 12/18/2016 [facility] Urine Culture SEE RESULT [address] [place] [address] [phone] Xray 08/21/2016 [facility] Ankle Right <pending> [address] 3+[place] [address] [phone] CBC No Diff 11/04/2015 [facility] White Blood 7.0 10^3/uL N 3.5-[address] Count 0.8 [place] [address] [phone] Red Blood Count 4.93 10^6/uL N 4.0-5.4 Hemoglobin 14.9 g/dL N 14.0-18.0 Hematocrit 45 % N 42-52 Mean Corpuscular Volume 91 fL N 80-94 Mean Corpuscular Hemoglobin 30 pg N 27-31 Mean Corpuscular HGB Conc 33 g/dL N 31-36 Red Cell Distribution Width 14 % N 10.5-15 Platelet Count 246 10^3/uL N 150-450 Mean Platelet Volume 8 um3 N 7.4-10.4 Basic Metabolic Panel 11/04/2015 [facility] Sodium 137 mmol/L N 133-[address] [place] [address] [phone] Potassium 4.5 mmol/L N 3.5-5.0 Chloride 101 mmol/L N 101-111 Co2 Carbon Dioxide 30 mmol/L N 22-32 Anion Gap 6 mmol/L N 2-11 Glucose 94 mg/dL N 70-100 Blood Urea Nitrogen 25 mg/dL High 6-24 Creatinine 1.28 mg/dL High 0.67-1.17 BUN/Creatinine Ratio 19.5 N 8-20 Calcium 10.3 mg/dL N 8.6-10.3 Egfr Non- 56.6 N >60 Egfr 72.8 N >60 49 Laboratory test 10/31/2015 [facility] Creatine 66 U/L N 10- [address] Kinase(CK) [place] [address] [phone] Connective Tissue 10/31/2015 [facility] Anti-Nuclear 0.5 U N 50 Panel [address] [facility] [place] [address] [phone] Cyclic Citrullinated Peptide <15.6 U N 51 Interpretation See Comment N 52 Laboratory test 10/31/2015 [facility] TSH (Thyroid 1.47 ?IU/mL N 0.34-5.[address] Stim Horm) [place] [address] [phone] Free T4 (Free Thyroxine) 0.93 ng/dL N 0.61-1.12 Vitamin B12 270 pg/mL N 180-914 53 Folic Acid (Folate) 16.85 ng/mL N >3.99 Methylmalonic Acid Mma 1.68 nmol/mL Abnormal <=0.40 54 1 Because ethnic data is not always readily [...] 15-29 5 Kidney failure <15 (or dialysis) 2 Troponin-I testing on Plasma Separator Tubes (PST) has a known false positive rate of 0.20-0.40%. All positive troponins reflex immediate secondary confirmatory testing. 3 SEE RESULTS BELOW [id number] OP PC TRANSFUSED 05/23/18 0456 [id number] OP PC TRANSFUSED 05/23/18 0003 4 SEE RESULT BELOW Name: MO FARAH : [address]: Jean Marie Barcenas MD Acct: [id number] Unit: [id number] AGE: 67 Location: [place] [address] Re05/22/18 Dis: 05/26/18 SEX: M Status: DIS IN SPEC: [id number] MYRANDA: 05/22/18-2254 [facility] DR: Yonatan Knox MD REQ: [id number] RECD: 05/22/18 STATUS: JM RUTLEDGE DR: David Putnam III, MD _ SOURCE: BLOOD,VENO SPDESC: ORDERED: Blood Cult Procedure Result Reported Site Aerobic Culture Bottle Final 18- 2305 ML No Growth Day 5 Anaerobic Culture Bottle Final 05/27/18- 2305 ML No Growth Day 5 * ML - Main Lab . END OF REPORT DEPARTMENT OF PATHOLOGY, [address] [place] [address] Enrique Amezcua M.D. Director [facility] # [id number] 5 [facility] Severe Sepsis and Septic Shock Management Bundle Measure requires all lactic acids initially measuring >2.0 mmol/L be repeated. 6 Because ethnic data is not always readily [...] 15-29 5 Kidney failure <15 (or dialysis) 7 Result TnIDx:0.07 Called to [id number] at: 09:20:44 by:[id number] Read back by: [id number] 8 Presumptive Positive Presumptive positive results are unconfirmed. 9 Presumptive Positive Presumptive positive results are unconfirmed. 10 The urine specimen was tested at the listed cutoffs: Drug class test level (ng/mL) Amphetamines 500 Barbiturates 200 Benzodiazepine metabolites 200 Cocaine metabolites 150 Cannabinoids 50 Opiates 300 Pcp 25 Specimen was received without chain of custody. Results should be used for medical purposes only. 11 Therapeutic concentration: <50 ug/mL Toxic concentration: >120 ug/mL 12 Because ethnic data is not always readily [...] 15-29 5 Kidney failure <15 (or dialysis) 13 Desirable: <150 Borderline High: 150-199 High: 200-499 Very High: >500 14 Desirable: <200 Borderline High: 200-239 High: >239 15 Low: <40 Desirable: 40-60 High: >60 16 Desirable: <100 Near Optimal: 100-129 Borderline High: 130-159 High: 160-189 Very High: >189 17 Presumptive Positive Presumptive positive results are unconfirmed. 18 Presumptive Positive Presumptive positive results are unconfirmed. 19 The urine specimen was tested at the listed cutoffs: Drug class test level (ng/mL) Amphetamines 500 Barbiturates 200 Benzodiazepine metabolites 200 Cocaine metabolites 150 Cannabinoids 50 Opiates 300 Pcp 25 Specimen was received without chain of custody. Results should be used for medical purposes only. 20 Therapeutic concentration: <50 ug/mL Toxic concentration: >120 ug/mL 21 Because ethnic data is not always [...] 5 Kidney failure <15 (or dialysis) 22 Because ethnic data is not always readily [...] 15-29 5 Kidney failure <15 (or dialysis) 23 [facility] Severe Sepsis and Septic Shock Management Bundle Measure requires all lactic acids initially measuring >2.0 mmol/L be repeated. 24 SEE RESULT BELOW Name: MO FARAH : [address]: Yonatan Knox MD Acct: [id number] Unit: [id number] AGE: 67 Location: ED Re12/15/17 SEX: M Status: DEP ER SPEC: [id number] MYRANDA: 12/15/17 [facility] DR: Sari ACEVEDO REQ: [id number] RECD: 12/15/17 STATUS: JM RUTLEDGE DR: Fred Putnam III, MD _ SOURCE: BLOOD,VENO SPDES: ORDERED: Blood Cult Procedure Result Reported Site Aerobic Culture Bottle Final 12/20/171951 ML No Growth Day 5 Anaerobic Culture Bottle Final 12/20/171951 ML No Growth Day 5 * ML - Main Lab . END OF REPORT DEPARTMENT OF PATHOLOGY, [address] [place] [address] Enrique Amezcua M.D. Director [facility] # [id number] 25 Because ethnic data is not always readily [...] 15-29 5 Kidney failure <15 (or dialysis) 26 Therapeutic concentration: <50 ug/mL Toxic concentration: >120 ug/mL 27 Presumptive Positive Presumptive positive results are unconfirmed. 28 The urine specimen was tested at the listed cutoffs: Drug class test level (ng/mL) Amphetamines 500 Barbiturates 200 Benzodiazepine metabolites 200 Cocaine metabolites 150 Cannabinoids 50 Opiates 300 Pcp 25 Specimen was received without chain of custody. Results should be used for medical purposes only. 29 Therapeutic concentration: <50 ug/mL Toxic concentration: >120 ug/mL 30 Because ethnic data is not always [...] 5 Kidney failure <15 (or dialysis) 31 Because ethnic data is not always readily [...] 15-29 5 Kidney failure <15 (or dialysis) 32 Serum levels of PSA measured using the [employer] DXI Hybritech immunoassay should not be interpreted as absolute evidence of the presence or absence of disease. The PSA value should be used in conjunction with other pertinent clinical diagnostic procedures. The values obtained with different assay methods or kits cannot be used interchangeably. 33 Because ethnic data is not always readily [...] 15-29 5 Kidney failure <15 (or dialysis) 34 [id number] SEE RESULT BELOW Name: MO FARAH : [address]: David Putnam III, MD Acct: [id number] Unit: [id number] AGE: 66 Location: [facility] Re05/21/17 SEX: M Status: REG REF SPEC: [id number] MYRANDA: 05/21/17-1258 [facility] DR: David Putnam III, MD REQ: [id number] RECD: 05/21/17 STATUS: COMP _ SOURCE: URINE SPDESC: ORDERED: Urine Culture COMMENTS: [id number] QUERIES: Urine Source: Random Procedure Result Reported Site Urine Culture Final 05/24/17- 0836 ML Organism 1 ENTEROCOCCUS FAECALIS Hooper Count >100,000 (Many) CFU/ML 1. ENTEROCOCCUS FAECALIS [...] These antibiotics are not available in the [facility] Formulary Contact the Microbiology Department for any additional antibiotic reporting. * ML - MAIN LAB ([facility]) . END OF REPORT * ML=Testing performed at Main Lab DEPARTMENT OF PATHOLOGY, [address] [place] [address] Enrique Amezcua M.D. Director [facility] # [id number] 36 *Ascorbic acid is present which may interfere with detection of blood. 37 Presumptive Positive Presumptive positive results are unconfirmed. 38 The urine specimen was tested at the listed cutoffs: Drug class test level (ng/mL) Amphetamines 500 Barbiturates 200 Benzodiazepine metabolites 200 Cocaine metabolites 150 Cannabinoids 50 Opiates 300 Pcp 25 Specimen was received without chain of custody. Results should be used for medical purposes only. 39 Because ethnic data is not always readily [...] 15-29 5 Kidney failure <15 (or dialysis) 40 Therapeutic concentration: <50 ug/mL Toxic concentration: >120 ug/mL 41 >100 to <200 pg/mL: likely compensated congestive heart failure (CHF) 200 to 400 pg/mL: likely moderate CHF >400 pg/mL: likely moderate to severe CHF 42 Because ethnic data is not always readily [...] 15-29 5 Kidney failure <15 (or dialysis) 43 Specimen hemolyzed, spoke to Nisha for recollect. 44 Specimen hemolyzed, spoke to Nisha for recollect. 45 Specimen hemolyzed, spoke to Nisha for recollect. 46 SEE RESULT BELOW Name: MO FARAH : [address]: David Putnam III, MD Acct: [id number] Unit: [id number] AGE: 66 Location: [facility] Re01/26/17 SEX: M Status: REG REF SPEC: [id number] MYRANDA: 01/26/17-1431 [facility] DR: David Putnam III, MD REQ: [id number] RECD: 01/26/17 STATUS: COMP _ SOURCE: URINE SPDESC: ORDERED: Urine Culture Procedure Result Reported Site Urine Culture Final 01/30/17- 08 ML Organism 1 ESCHERICHIA COLI Hooper Count >100,000 (Many) CFU/ML 1. ESCHERICHIA COLI [...] antibiotic reporting. * ML - MAIN LAB ([facility]) . END OF REPORT * ML=Testing performed at Main Lab DEPARTMENT OF PATHOLOGY, [address] [place] [address] Enrique Amezcua M.D. Director [facility] # [id number] 47 Serum levels of PSA measured using the [employer] DXI Hybritech immunoassay should not be interpreted as absolute evidence of the presence or absence of disease. The PSA value should be used in conjunction with other pertinent clinical diagnostic procedures. The values obtained with different assay methods or kits cannot be used interchangeably. 48 SEE RESULT BELOW Name: MO FARAH : [address]: David Putnam III, MD Acct: [id number] Unit: [id number] AGE: 66 Location: [facility] Re12/18/16 SEX: M Status: REG REF SPEC: [id number] MYRANDA: 12/18/16-1222 [facility] DR: David Putnma III, MD REQ: [id number] RECD: 12/18/16 STATUS: COMP _ SOURCE: URINE SPDESC: ORDERED: Urine Culture Procedure Result Reported Site Urine Culture Final 12/20/16- 0740 ML Organism 1 ESCHERICHIA COLI Hooper Count >100,000 (Many) CFU/ML 1. ESCHERICHIA COLI [...] antibiotic reporting. * ML - MAIN LAB ([facility]) . END OF REPORT * ML=Testing performed at Main Lab DEPARTMENT OF PATHOLOGY, [address] [place] [address] Enrique Amezcua M.D. Director [facility] # [id number] 49 Because ethnic data is not always readily [...] 15-29 5 Kidney failure <15 (or dialysis) 50 REFERENCE VALUE <=1.0 (Negative) 51 REFERENCE VALUE <20.0 (Negative) 52 Tests for antibodies to dsDNA and ARACELY antigens are not performed automatically unless the WILFREDO result is > or= 3.0 U. Studies performed at [facility] indicate that positive WILFREDO results <3.0 U are rarely accompanied by positive second order tests. Test Performed by: [address] [address] Television Mechanic: Garrett Slade II, M.D., Ph.D. 53 Normal Range 180 to 914 Indeterminate Range 145 to 180 Deficient Range <145 54 In this sample, the concentration of methylmalonic acid (MMA) was elevated. This finding is likely related to vitamin B12 deficiency. Test Performed by: [address] [address] Television Mechanic: Garrett Slade II, M.D., Ph.D. Procedures Date Code Description Status 04/21/2018 94825 Moderate Sedation Services; Same Phys Intl 15 Mins; PT >=5 Completed Years 04/21/2018 20013 Color Flow Doppler/Interp & Reprt Completed 04/21/2018 04400 Pulse Wave/Continuous-Interp.RPT Completed 04/21/2018 01480 Echocardiography, Transesophageal, Real Time W/Image 2D Completed W/W/O M-M 04/20/2018 17805 ECHO Transthorasic Realtime 2D W Doppler & Color Flow Hosp Completed 07/20/2017 11765 Nerve Conduction - Studies Completed 02/23/2017 76713 EKG Tracing & Interpretation Completed 12/11/2016 52570 EKG, Interpretation Only Completed 12/10/2016 01078 Cardioversion Completed 12/10/2016 56411 EKG, Interpretation Only Completed 12/10/2016 54476 Echocardiography, Transesophageal, Real Time W/Image 2D Completed W/W/O M-M 12/10/2016 14637 Pulse Wave/Continuous-Interp.RPT Completed 12/10/2016 14301 Color Flow Doppler/Interp & Reprt Completed 12/09/2016 21178 Treadmill Interp/Report Only Completed 12/09/2016 24273 Stress Test Supervsn W/Out I/R Completed 12/09/2016 75285 EKG, Interpretation Only Completed 12/08/2016 95691 ECHO Transthorasic Realtime 2D W Doppler & Color Flow Hosp Completed 12/08/2016 11459 EKG, Interpretation Only Completed 04/09/2016 21635 EKG, Interpretation Only Completed 11/07/2015 81108 Laminectomy W/Explor And/Or Decompression W/O Facetectomy Completed Or Exc 11/01/2015 39712 Nerve Conduction 07-08 Studies Completed 09/30/2015 94981 Treadmill Interp/Report Only Completed 09/30/2015 84539 Stress Test Supervsn W/Out I/R Completed 09/27/2015 53833 ECHO Transthorasic Realtime 2D W Doppler & Color Flow Hosp Completed 05/22/2015 10560 ECHO Transthorasic Realtime 2D W Doppler & Color Flow Hosp Completed 05/22/2015 55094 Treadmill Interp/Report Only Completed 05/22/2015 77485 Stress Test Supervsn W/Out I/R Completed 08/29/2014 54211 EKG, Interpretation Only Completed 08/29/2014 73320 ECHO Transthorasic Realtime 2D W Doppler & Color Flow Hosp Completed 03/16/2013 29330 Xray Knee 3 Views Completed 01/03/2013 80432 Color Flow Doppler/Interp & Reprt Completed 01/03/2013 41029 Pulse Wave/Continuous-Interp.RPT Completed 01/03/2013 94638 ECHO Transthorasic Realtime 2D W Doppler & Color Flow Hosp Completed 01/02/2013 17957 Treadmill Interp/Report Only Completed 01/02/2013 85013 Stress Test Supervsn W/Out I/R Completed 01/02/2013 96777 EKG, Interpretation Only Completed Encounters Type Date Location Provider Dx Diagnosis Office Visit 05/26/2018 [facility] Chang K92.2 Gastrointestinal 1:27p jodee Dietz MD hemorrhage, Hospitalists unspecified Office Visit 05/25/2018 [facility] K25.9 Gastric ulcer , unsp as 1:27p jodee Dietz MD acute or chronic, w/o Hospitalists hemor or perf I48.91 Unspecified atrial fibrillation F31.9 Bipolar disorder, unspecified K59.00 Constipation, unspecified Office Visit 05/24/2018 1:27p [facility] Mark Horton K92.2 Gastrointestinal DO hemorrhage, unspecified I11.0 Hypertensive heart disease with heart failure I25.5 Ischemic cardiomyopathy I48.91 Unspecified atrial fibrillation F31.9 Bipolar disorder, unspecified N17.9 Acute kidney failure, unspecified D62 Acute posthemorrhagic anemia Office Visit 05/23/2018 1:26p [facility] Mark Horton, K92.2 Gastrointestinal DO hemorrhage, unspecified I11.0 Hypertensive heart disease with heart failure I25.5 Ischemic cardiomyopathy I48.91 Unspecified atrial fibrillation I25.10 Athscl heart disease of [place] coronary artery w/o ang pctrs N17.9 Acute kidney failure, unspecified D62 Acute posthemorrhagic anemia [facility] Un[facility] 1:26p Assoc,jodee Rodriguez NIlana. atrial Hospitalists fibrillation I25.5 Ischemic cardiomyopathy F31.9 Bipolar disorder, unspecified Q87.40 Marfan's syndrome, unspecified I10 Essential (primary) hypertension I25.10 Athscl heart disease of [place] coronary artery w/o ang pctrs Office Visit 04/21/2018 12:10p [facility] Joseeula Oconnell I48.0 Paroxysmal atrial Of Justine Red M.D., fibrillation FACC, FASNC I51.9 Heart disease, unspecified Office Visit 04/21/2018 10:38a [facility] Flakito Lubin, I48.91 Unspecified atrial Assoc,jodee LARSON fibrillation Hospitalists I50.21 Acute systolic (congestive) heart failure F31.9 Bipolar disorder, unspecified Office Visit 04/20/2018 12:07p [facility] Lauryn Saha, I50.9 Heart failure, Of Justine Martinez unspecified I48.91 Unspecified atrial fibrillation I25.10 Athscl heart disease of [place] coronary artery w/o ang pctrs R79.89 Other specified abnormal findings of blood chemistry Office Visit 04/20/2018 10:38a [facility] Flakito Lubin, J96.01 Acute respiratory Assoc,jodee LARSON failure with Hospitalists hypoxia I25.5 Ischemic cardiomyopathy I50.21 Acute systolic (congestive) heart failure F31.9 Bipolar disorder, unspecified Office Visit 04/19/2018 10:37a [facility] Flakito Lubin, J96.01 Acute respiratory Assoc,jodee LARSON failure with Hospitalists hypoxia I25.5 Ischemic cardiomyopathy I50.21 Acute systolic (congestive) heart failure F31.9 Bipolar disorder, unspecified Office Visit 04/18/2018 [facility] Martha Kilgore I48.91 Unspecified atrial 10:37a Assoc,jodee Chiu M.D. fibrillation Hospitalists I50.21 Acute systolic (congestive) heart failure I25.5 Ischemic cardiomyopathy F31.9 Bipolar disorder, unspecified Office Visit 04/17/2018 [facility] I48.91 Unspecified atrial 10:37a Assjodee wiseman M.D. fibrillation Hospitalists I50.21 Acute systolic (congestive) heart failure I25.5 Ischemic cardiomyopathy F31.9 Bipolar disorder, unspecified Office Visit 04/16/2018 [facility] Kilgore I48.91 Unspecified atrial 10:36a Assoc,jodee Chiu M.D. fibrillation Hospitalists I50.21 Acute systolic (congestive) heart failure F31.9 Bipolar disorder, unspecified I25.5 Ischemic cardiomyopathy Office Visit 02/10/2018 4:20p [facility] Internal David Gonzales Z02.89 Encounter for other Mariia Putnma M.D. administrative [place] examinations Office Visit 01/19/2018 1:00p [facility] Internal David Gonzales I10 Essential ( primary) Mariia Putnam M.D. hypertension [place] M79.671 Pain in right foot I48.0 Paroxysmal atrial fibrillation F31.9 Bipolar disorder, unspecified Z23 Encounter for immunization E78.00 Pure hypercholesterolemia, unspecified Office Visit 06/24/2017 11:30a Shameka Liu G56.03 Carpal tunnel Neurologic Juan Durán syndrome, Services Of [facility] bilateral upper limbs Office Visit 05/21/2017 11:20a [facility] Internal David Gonzales R31.9 Hematuria, Mariia Putnam M.D. unspecified [place] I10 Essential (primary) hypertension F31.9 Bipolar disorder, unspecified Office Visit 03/08/2017 8:13p [facility] Carter, R41.89 Oth symptoms and Assoc,pc N.P. signs w Hospitalists cognitive functions and awareness T50.901A Poisoning by [facility] drug/meds/biol subst, accidental, init F31.9 Bipolar disorder, unspecified I10 Essential (primary) hypertension Office Visit 03/07/2017 8:12p [facility] Carter R41.89 Oth symptoms and Assoc,pc N.P. signs w Hospitalists cognitive functions and awareness T50.901A Poisoning by unsp drug/meds/biol subst, accidental, init F31.9 Bipolar disorder, unspecified Office Visit 03/06/2017 [facility] Uma Carter, T50.901A Poisoning by unsp 8:11p Assoc,pc N.P. drug/meds/biol Hospitalists subst, accidental, init R41.89 Oth symptoms and signs w cognitive functions and awareness I10 Essential (primary) hypertension F31.9 Bipolar disorder, unspecified Office Visit 02/23/2017 2:40p [facility] Rohit Hernandez R00.1 BradycardiaIndio M.D. unspecified R42 Dizziness and giddiness I48.0 Paroxysmal atrial fibrillation I10 Essential (primary) hypertension I42.9 Cardiomyopathy, unspecified Q87.418 Marfan's syndrome with other cardiovascular manifestations I44.4 Left anterior fascicular block R94.31 Abnormal electrocardiogram [ECG] [EKG] Office Visit 02/01/2017 [facility] Lj R00.1 Bradycardia, 8:00a Assoc,jodee Rodriguez MD unspecified Hospitalists N30.00 Acute cystitis without hematuria R42 Dizziness and giddiness T44.7x5A Adverse effect of beta-adrenoreceptor antagonists, init Office Visit 01/31/2017 [facility] Lj R00.1 Bradycardia, 7:59a Assoc,jodee Rodriguez MD unspecified Hospitalists T44.7x5A Adverse effect of beta-adrenoreceptor antagonists, init R42 Dizziness and giddiness I25.5 Ischemic cardiomyopathy Office Visit 01/30/2017 [facility] Lj R00.1 Bradycardia, 7:58a Assoc,jodee Rodriguez MD unspecified Hospitalists I48.0 Paroxysmal atrial fibrillation I25.5 Ischemic cardiomyopathy T44.7x5A Adverse effect of beta-adrenoreceptor antagonists, init Office Visit 01/29/2017 [facility] Chip Paul R00.1 Bradycardia, 7:56a Assoc,jodee Cope M.D.,FACP unspecified Hospitalists I48.0 Paroxysmal atrial fibrillation T44.7x5A Adverse effect of beta-adrenoreceptor antagonists, init Office Visit 01/26/2017 1:00p [facility] Internal David Pollard.671 Pain in right Medicine - Juan Putnam foot [place] D64.9 Anemia, unspecified R35.0 Frequency of micturition Office Visit 12/18/2016 10:40a [facility] Internal David E. I48.0 Paroxysmal atrial Medicine - [place] Putnam. fibrillation [place] I50.23 Acute on chronic systolic (congestive) heart failure Q87.40 Marfan's syndrome, unspecified I10 Essential (primary) hypertension D64.9 Anemia, unspecified F31.9 Bipolar disorder, unspecified R35.0 Frequency of micturition Office Visit 12/12/2016 11:36a [facility] Lj I49.8 Other specified Assoc,jodee Rodriguez MD cardiac Hospitalists arrhythmias I50.23 Acute on chronic systolic (congestive) heart failure R74.8 Abnormal levels of other serum enzymes I25.10 Athscl heart disease of [place] coronary artery w/o ang pctrs Office [facility] Other specified Assoc,jodee Rodriguez MD cardiac Hospitalists arrhythmias I50.23 Acute on chronic systolic (congestive) heart failure R74.8 Abnormal levels of other serum enzymes I25.10 Athscl heart disease of [place] coronary artery w/o ang pctrs Office Visit 12/11/2016 4:34p [facility] Rohit F. I48.0 Paroxysmal atrial Mauser, M.D. fibrillation I42.9 Cardiomyopathy, unspecified Office Visit 12/10/2016 4:33p [facility] Rohit F. I48.0 Paroxysmal atrial Mauser, M.D. fibrillation I42.9 Cardiomyopathy, unspecified Office Visit 12/10/2016 11:35a [facility] Lj I49.8 Other specified Assoc,jodee Rodriguez MD cardiac Hospitalists arrhythmias I50.23 Acute on chronic systolic (congestive) heart failure R74.8 Abnormal levels of other serum enzymes I25.10 Athscl heart disease of [place] coronary artery w/o ang pctrs Office Visit 12/09/2016 11:34a [facility] Jame I49.8 Other specified Assoc,jodee Chiu M.D. cardiac Hospitalists arrhythmias I25.10 Athscl heart disease of [place] coronary artery w/o ang pctrs R74.8 Abnormal levels of other serum enzymes F31.9 Bipolar disorder, unspecified Office Visit 12/09/2016 3:08p [facility] Lauryn Saha, R06.02 Shortness of Of Sprue Knocker M.D. breath I48.0 Paroxysmal atrial fibrillation I42.9 Cardiomyopathy, unspecified Office Visit 12/08/2016 11:34a [facility] Jame I49.8 Other specified Assoc,pc Juan Chiu cardiac Hospitalists arrhythmias I25.10 Athscl heart disease of [place] coronary artery w/o ang pctrs R74.8 Abnormal levels of other serum enzymes F31.9 Bipolar disorder, unspecified Office Visit 12/07/2016 11:33a [facility] Jame I49.8 Other specified Assoc,pc Juan Chiu cardiac Hospitalists arrhythmias F31.9 Bipolar disorder, unspecified I25.10 Athscl heart disease of [place] coronary artery w/o ang pctrs R74.8 Abnormal levels of other serum enzymes Office Visit 08/21/2016 2:45p Orthopedic Jame F31.9 Bipolar disorder, Services Of Juan Mobley unspecified C.M.A. Q87.40 Marfan's syndrome, unspecified M19.071 Primary osteoarthritis, right ankle and foot Office Visit 04/10/2016 4:12p [facility] Uma Carter, R42 Dizziness and Assoc, Jessica emery Hospitalists I25.10 Athscl heart disease of [place] coronary artery w/o ang pctrs I42.9 Cardiomyopathy, unspecified F31.9 Bipolar disorder, unspecified Office Visit 04/09/2016 Neurohospitalist Kishor Bush H81.20 Vestibular 3:04p Clinic Juan Bryant neuronitis, unspecified ear Office Visit 04/09/2016 [facility] Uma Carter, R42 Dizziness and 4:11p Assoc,pc Hospitalists Jessiac emery I25.10 Athscl heart disease of [place] coronary artery w/o ang pctrs I42.9 Cardiomyopathy, unspecified F31.9 Bipolar disorder, unspecified Office Visit 04/08/2016 Neurohospitalist Kishor Bush H81.20 Vestibular 3:03p Clinic Juan Bryant neuronitis, unspecified ear I10 Essential (primary) hypertension Q87.40 Marfan's syndrome, unspecified Office Visit 04/08/2016 4:10p [facility] Jamie Rodriguez, R42 Dizziness and Assoc,pc N.P. mattddiness Hospitalists I25.10 Athscl heart disease of [place] coronary artery w/o ang pctrs I42.9 Cardiomyopathy, unspecified F31.9 Bipolar disorder, unspecified Office Visit 03/22/2016 [facility] Chip [employer] I48.91 Unspecified 2:15p Assoc,jodee Cope M.D.,FACP atrial Hospitalists fibrillation R79.89 Other specified abnormal findings of blood chemistry F30.9 Manic episode, unspecified Office Visit 03/21/2016 [facility] Jg Pryor I48.91 Unspecified 2:14p Assoc,jodee GRESHAM M.D. atrial Hospitalists fibrillation R79.89 Other specified abnormal findings of blood chemistry F30.9 Manic episode, unspecified Office Visit 03/20/2016 [facility] Re I48.91 Unspecified atrial 2:14p Assoc,jodee Amos M.D. fibrillation Hospitalists R79.89 Other specified abnormal findings of blood chemistry F30.9 Manic episode, unspecified Office Visit 03/19/2016 2:13p [facility] Uma Raul, I48.91 Unspecified atrial Assoc,pc N.P. fibrillation Hospitalists R79.89 Other specified abnormal findings of blood chemistry F30.9 Manic episode, unspecified Office Visit 03/17/2016 11:15a Neurosurgery Janneth Willett M54.2 Cervicalgia Services Of [facility] PA-C Office Visit 02/15/2016 4:05p [facility] Lj R07.9 Chest pain, Assoc,pc MD Michael unspecified Hospitalists I25.10 Athscl heart disease of [place] coronary artery w/o ang pctrs I48.91 Unspecified atrial fibrillation F31.9 Bipolar disorder, unspecified Office Visit 02/14/2016 [facility] Shelbi R07.9 Chest pain, 4:05p Assoc,pc MARTHA Matson unspecified Hospitalists I48.91 Unspecified atrial fibrillation I25.10 Athscl heart disease of [place] coronary artery w/o ang pctrs F31.9 Bipolar disorder, unspecified Office Visit 02/10/2016 10:45a Neurosurgery Kishor Finn M54.2 Cervicalgia Services Of Justine Martinez M62.81 Muscle weakness (generalized) Office Visit 12/12/2015 8:30a Orthopedic Jame 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 cervical region M62.81 Muscle weakness (generalized) Office Visit 11/13/2015 [facility] Jame M19.071 Primary 1:10p Services Of Juan Mobley osteoarthritis, C.M.A. right ankle and foot M19.071 Primary osteoarthritis, right ankle and foot Office Visit 11/01/2015 Neurosurgery Kishor Finn M47.12 Other spondylosis 2:30p Services Of Justine Martinez with myelopathy, cervical region Office Visit 11/01/2015 [facility] Rubi Liu M47.12 Other spondylosis 9:00a Services Of Justine Durán M.D. with myelopathy, cervical region G62.9 Polyneuropathy, unspecified Z79.01 watermaster (current) use of anticoagulants Office Visit 10/31/2015 Shameka Liu M62.81 Muscle weakness 9:00a Neurologic Juan Durán (generalized) Services Of Justine G62.9 Polyneuropathy, unspecified Office Visit 10/02/2015 [facility] I48.91 Unspecified 2:46p jodee Dietz NP atrial Hospitalists fibrillation I42.9 Cardiomyopathy, unspecified F31.9 Bipolar disorder, unspecified Office Visit 10/01/2015 [facility] I48.91 Unspecified 2:45p jodee Dietz NP atrial Hospitalists fibrillation I42.9 Cardiomyopathy, unspecified F31.9 Bipolar disorder, unspecified Office Visit 09/30/2015 [facility] I48.91 Unspecified 2:45p jodee Dietz NP atrial Hospitalists fibrillation I42.9 Cardiomyopathy, unspecified F31.9 Bipolar disorder, unspecified Office Visit 09/29/2015 [facility] I48.91 Unspecified 2:44p Assjodee wiseman NP atrial Hospitalists fibrillation I42.9 Cardiomyopathy, unspecified F31.9 Bipolar disorder, unspecified Office Visit 09/29/2015 4:03p [facility] Lauryn Maria A, I48.0 Paroxysmal atrial Of Sprue Knocker M.D. fibrillation I25.10 Athscl heart disease of [place] coronary artery w/o ang pctrs I25.5 Ischemic cardiomyopathy Office Visit 09/28/2015 10:59a [facility] Lauryn Saha, I48.1 Persistent atrial Of Sprue Knocker M.D. fibrillation R79.89 Other specified abnormal findings of blood chemistry I25.10 Athscl heart disease of [place] coronary artery w/o ang pctrs I25.5 Ischemic cardiomyopathy T46.2x6A Underdosing of other antidysrhythmic drugs, init encntr Z91.128 Patient's intentl undrdose of meds regimen for oth reason Office Visit 09/27/2015 [facility] Danilo Samyaretha, I48.91 Unspecified atrial 2:42p Assocjodee M.D. fibrillation Hospitalists Office Visit 05/30/2015 [facility] Lj M79.89 Other specified 11:17a Assoc,jodee Rodriguez MD soft tissue Hospitalists disorders F30.9 Manic episode, unspecified L03.119 Cellulitis of unspecified part of limb [facility]2015 [facility].89 Other specified Assoc,jodee Rodriguez MD soft tissue Hospitalists disorders F30.9 Manic episode, unspecified L03.119 Cellulitis of unspecified part of limb Office Visit 05/28/2015 11:16a [facility] Jovita S. M79.89 Other specified Assoc,jodee Viveros N.P. soft tissue Hospitalists disorders F30.9 Manic episode, unspecified L03.119 Cellulitis of unspecified part of limb Office 05/23/2015 [facility] Peyman R94.31 Abnormal Visit 3:15p Assoc,jodee Bullock M.D. electrocardiogram Hospitalists [ECG] [EKG] R07.2 Precordial pain R77.8 Other specified abnormalities of plasma proteins F31.10 Bipolar disord, crnt episode manic w/o psych features, unsp Office Visit 05/21/2015 [facility] Jg Pryor R07.2 Precordial pain 3:14p Assoc,jodee GRESHAM M.D. Hospitalists R94.31 Abnormal electrocardiogram [ECG] [EKG] R77.8 Other specified abnormalities of plasma proteins F31.10 Bipolar disord, crnt episode manic w/o psych features, unsp Office Visit 08/29/2014 10:16a [facility] Jennifer Hohn, 427.32 Atrial Assoc,jodee Hart Hospitalists 428.0 Congestive Heart Failure Unspecified 790.6 Abnormal Blood Chemistry Other Office Visit 08/29/2014 8:50a [facility] Rohit Hernandez 428.0 Congestive Heart Juan Borjas Failure Unspecified 427.32 Atrial Flutter 414.9 Ischemic Heart Disease Chronic Unspec 759.82 Marfan Syndrome Office Visit 08/28/2014 10[facility] 427.32 Atrial Assoc,jodee Hart Hospitalists 428.0 Congestive Heart Failure Unspecified 790.6 Abnormal Blood Chemistry Other Office Visit 03/16/2013 8:00a Orthopedic Services Jacinto Bermudez, 726.69 Bursitis Knee Of Kirk Martinez Other Office Visit 01/03/2013 7:46a [facility] Gilliland 786.51 Pain Precordial Assoc,Merrill Mas M.D. 414.01 Coronary Atherosclerosis [place] 728.89 Muscle Disorders Other V11.1 History Personal Affective Disorder Office Visit 01/02/2013 [facility] Jennifer Larkin, 786.51 Pain Precordial 7:46a Assoc,jodee Momin 414.01 Coronary Atherosclerosis [place] 728.89 Muscle Disorders Other V11.1 History Personal Affective Disorder Plan of Treatment 06/21/2018 - David Putnam M.D.K25.9 Gastric ulcer, unspecified as acute or chronic, without hemoReferral:Hubert Meehan MD, Gastroenterology
[2018-06-25] MEDS ORDERED: NS 0.9% 1000 ML* 1,000 ML IV ONE (14:29)
[2018-06-25] MEDS ORDERED: Diltiazem IV* 5 MG/ML 5 ML VIAL (for loading dose/IV Push) (25 MG) IV PUSH ONE (14:29)
--- NOTE | 2018-06-25 14:46 | ED ---
Shortness of Breath - HPI Summary HPI Summary: Patient is a 67 y/o M presenting to ED with complaints of SOB, chills onsetting two days ago. He denies cough and chest pain. Patient was concerned as he states that he got winded while walking down steps today. PMHx of afib is reported. Patient states that he went in for a cardioversion ~6 weeks ago and they were unable to cardiovert due to presence of a blood clot near his watchman filter. Patient was placed on blood thinners. However, ~3 weeks ago patient came to ED and was diagnosed with GI bleed, patient received blood transfusion and was taken off of blood thinners. In room, pulse is 132. Associated severity is rated 4/10, nothing is noted to aggravate/alleviate Sx. Home medications and allergies are reviewed. - History of Current Complaint Chief Complaint: EDShortnessOfBreath Time Seen by Provider: 06/25/18 14:21 Hx Obtained From: Patient Onset/Duration: Lasting Days - two days ago, Still Present, Worse Since Timing: Constant Current Severity: Moderate - 4/10 on triage Aggrevating Factors: Nothing Alleviating Factors: Nothing Associated Signs & Symptoms: Chills - Allergy/Home Medications Allergies/Adverse Reactions: Allergies Allergy/AdvReac Type Severity Reaction Status Date / Time No Known Allergies Allergy Verified 05/22/18 20:34 Home Medications: Home Medications Metoprolol Succinate 50 mg PO DAILY 06/25/18 [History Confirmed 06/25/18] PMH/Surg Hx/FS Hx/Imm Hx Endocrine/Hematology History: Denies: Hx Diabetes Cardiovascular History: Reports: Hx Atrial Fibrillation, Hx Congenital Heart Disease - murmur, Hx Congestive Heart Failure, Hx Coronary Artery Disease - Stent x2 2007, Hx Hypercholesterolemia, Hx Hypertension, Other Cardiovascular Problems/Disorders - cardiomyopathy. Marfan's syndrome Denies: Hx Angina - denies, Hx Myocardial Infarction, Hx Pacemaker/ICD, Hx Valvular Heart Disease Respiratory History: Reports: Hx Pulmonary Embolism - possible, Other Respiratory Problems/Disorders - SOB D/T WEAKNESS Denies: Hx Asthma, Hx Chronic Obstructive Pulmonary Disease (COPD), Hx Pneumonia GI History: Reports: Hx Hiatal Hernia, Other GI Disorders - abdominal hernia History: Denies: Hx Benign Prostatic Hyperplasia - maybe, Hx Dialysis Musculoskeletal History: Reports: Hx Arthritis, Hx Back Problems, Other Musculoskeletal History - Marfan's Syndrome Sensory History: Reports: Hx Macular Degeneration - lense implants x2, Hx Vision Problem - Pt states he has "blurry vision" Denies: Hx Contacts or Glasses, Hx Hearing Aid Opthamlomology History: Reports: Hx Macular Degeneration - lense implants x2, Hx Vision Problem - Pt states he has "blurry vision" Denies: Hx Contacts or Glasses Neurological History: Reports: Hx Headaches, Hx Nerve Disease, Other Neuro Impairments/Disorders - MARFAN'S SYNDROME Denies: Hx Dementia, Hx Seizures Psychiatric History: Reports: Hx Anxiety, Hx Attention Deficit Hyperactivity Disorder, Hx Depression, Hx Panic Disorder - agorophobia, Hx Inpatient Treatment , Hx Community Mental Health Tx, Hx Bipolar Disorder, Hx Substance Abuse Denies: Hx Eating Disorder, Hx of Violent Episodes Against Others - Surgical History Surgery Procedure, Year, and Place: left knee surgery, left wrist, abdominal hernia x2, cardiac cath 2009ish. dates unknown. Watchman procedure 2017. STENTS X2 2008 Hx Anesthesia Reactions: No - Immunization History Date of Tetanus Vaccine: utd Date of Influenza Vaccine: utd Infectious Disease History: No Infectious Disease History: Reports: Hx Shingles Denies: Hx Clostridium Difficile, Hx Hepatitis, Hx Human Immunodeficiency Virus (HIV), Hx of Known/Suspected MRSA, Hx Tuberculosis, History Other Infectious Disease, Traveled Outside the [place] in Last 30 Days - Family History Known Family History: Positive: Cardiac Disease - Social History Alcohol Use: Rare Alcohol Amount: 2x month Hx Substance Use: No Substance Use Type: Reports: None Substance Use Comment - Amount & Last Used: Pt states that he does use recreational substances Hx Tobacco Use: Yes Smoking Status (MU): Former Smoker Type: Cigarettes Amount Used/How Often: 5-7/day Length of Time of Smoking/Using Tobacco: 16 years total Have You Smoked in the Last Year: No Review of Systems Positive: Chills Negative: Chest Pain Positive: Shortness Of Breath. Negative: Cough All Other Systems Reviewed And Are Negative: Yes Physical Exam - Summary Physical Exam Summary: VITAL SIGNS: Reviewed. GENERAL: Patient is a well-developed and nourished male who is lying comfortable in the stretcher. Patient is not in any acute respiratory distress. HEAD AND FACE: No signs of trauma. No ecchymosis, hematomas or skull depressions. No sinus tenderness. EYES: PERRLA, EOMI x 2, No injected conjunctiva, no nystagmus. EARS: Hearing grossly intact. Ear canals and tympanic membranes are within normal limits. MOUTH: Oropharynx within normal limits. NECK: Supple, trachea is midline, no adenopathy, no JVD, no carotid bruit, no c- spine tenderness, neck with full ROM. CHEST: Symmetric, no tenderness at palpation LUNGS: Clear to auscultation bilaterally. No wheezing or crackles. CVS: irregularly irregularly, tachycardic, S1 and S2 present, no murmurs or gallops appreciated. ABDOMEN: Soft, non-tender. No signs of distention. No rebound no guarding, and no masses palpated. Bowel sounds are normal. EXTREMITIES: FROM in all major joints, no edema, no cyanosis or clubbing. NEURO: Alert and oriented x 3. No acute neurological deficits. Speech is normal and follows commands. SKIN: Dry and warm Triage Information Reviewed: Yes Vital Signs On Initial Exam: Initial Vitals Temp Pulse Resp BP Pulse Ox 99.3 F 138 24 100/70 96 06/25/18 14:11 06/25/18 14:11 06/25/18 14:11 06/25/18 14:11 06/25/18 14:11 Vital Signs Reviewed: Yes Diagnostics - Vital Signs Vital Signs Temp Pulse Resp BP Pulse Ox 06/25/18 14:11 99.3 F 138 24 100/70 96 - Laboratory Result Diagrams: 06/25/18 14:03 06/25/18 14:03 Lab Statement: Any lab studies that have been ordered have been reviewed, and results considered in the medical decision making process. - Radiology CXR Radiology Interpretation Completed By: Radiologist Summary of Radiographic Findings: IMPRESSION: No acute cardiopulmonary process. This report was reviewed by ED physician. - EKG 1425 Cardiac Rate: Other Rate - afib with rate of 119 BPM EKG Rhythm: Atrial Fibrillation Summary of EKG Findings: EKG showed afib with rate of 119 BPM, no ST elevations. Course/Dx - Course Assessment/Plan: Patient is a 67 y/o M presenting to ED with complaints of SOB, chills onsetting two days ago. He denies cough and chest pain. Patient was concerned as he states that he got winded while walking down steps today. PMHx of afib is reported. Patient states that he went in for a cardioversion ~6 weeks ago and they were unable to cardiovert due to presence of a blood clot near his watchman filter. Patient was placed on blood thinners. However, ~3 weeks ago patient came to ED and was diagnosed with GI bleed, patient received blood transfusion and was taken off of blood thinners. In room, pulse is 132. Associated severity is rated 4/10, nothing is noted to aggravate/alleviate Sx. Home medications and allergies are reviewed. Blood test results shows a slight anemia, creatinine 1.38, glucose 121, lactic acid is 2.4, BNP is 274. Troponin is 0.03. EKG shows an atrial fibrillation with RVR. Chest x-ray is no acute cardiopulmonary disease. In the ED course the patient was given IV fluids since he seems to have a little hypertension and he was given Cardizem and the symptoms have improved. I discussed my physical exam and findings with and Dr. Barcenas who accepted the patient for admission. Patient is hemolyticus stable alert and oriented 3. - Diagnoses Differential Diagnosis/HQI/PQRI: Positive: CHF, Pneumonia, Pulmonary Edema Provider Diagnoses: Atrial fibrillation with RVR - Physician Notifications Discussed Care of Patient With: Jean Marie Barcenas Time Discussed With Above Provider: 15:45 Instructed by Provider To: Other - Patient's case was discussed with Dr. Barcenas, Dr. Barcenas accepts patient for admission. Discharge - Sign-Out/Discharge Documenting (check all that apply): Patient Departure - admit - Discharge Plan Condition: Stable Disposition: ADMITTED TO [facility] - Billing Disposition and Condition Condition: STABLE Disposition: Admitted to [facility] - Attestation Statements Document Initiated by Dannie: Yes Documenting Scribe: LUCIEN LIN Provider For Whom Dannie is Documenting (Include Credential): LUIS JEREZ MD Scribe Attestation: I, LUCIEN LIN , scribed for LUIS JEREZ MD on 06/25/18 at 1838. Scribe Documentation Reviewed: Yes Provider Attestation: The documentation as recorded by the LUCIEN rosa accurately reflects the service I personally performed and the decisions made by me, LUIS JEREZ MD Status of Scribe Document: Viewed
[2018-06-25 15:15] LABS: ABS Basophils 0 10^3/ul (0-0.2); ABS Eosinophils 0.1 10^3/ul (0-0.6); ABS Lymphocytes 1.5 10^3/ul (1.0-4.8); ABS Monocytes 0.6 10^3/ul (0-0.8); ABS Neutrophils 3.9 10^3/ul (1.5-7.7); ABS Nucleated RBC 0 10^3/ul; Eosinophil % 2.1 %; Hematocrit 34 % (42-52); Mean Corpuscular HGB Conc 32 g/dl (31-36); Mean Corpuscular Hemoglobin 28 pg (27-31); Mean Corpuscular Volume 86 fL (80-94); Mean Platelet Volume 7.2 fL (7.4-10.4); Nucleated Red Blood Cells % 0; Platelet Count 412 10^3/ul (150-450); Red Blood Count 3.97 10^6/ul (4.00-5.40); Red Cell Distribution Width 16 % (10.5-15); White Blood Count 6.2 10^3/ul (3.5-10.8)
[2018-06-25 15:38] LABS: Albumin 4.1 g/dL (3.2-5.2); Albumin/Globulin Ratio 1.5 (1-3); BUN/Creatinine Ratio 15.9 (8-20); Calcium 9.4 mg/dL (8.6-10.3); EGFR Non-African American 51.6 (>60); Globulin 2.7 g/dL (2-4); Total Bilirubin 0.4 mg/dL (0.2-1.0); Total Protein 6.8 g/dL (6.4-8.9)
[2018-06-25 16:03] LABS: TSH (Thyroid Stimulating Horm) 1.75 mcIU/mL (0.34-5.60)
[2018-06-25 16:49] LABS: Urine Appearance Cloudy; Urine Bacteria Absent (Absent); Urine Bilirubin Negative (Negative); Urine Blood Negative (Negative); Urine Color Yellow; Urine Glucose Negative (Negative); Urine Ketones Negative (Negative); Urine Nitrite Negative (Negative); Urine Protein 1+(30 mg/dL) (Negative); Urine Red Blood Cell Absent (Absent); Urine Urobilinogen Negative (Negative); Urine White Blood Cell Trace(0-5/hpf) (Absent)
[2018-06-25] MEDS ORDERED: Iodixanol* (CONTRAST) 320 MG/ML 100 ML SDV IV ONE (17:08)
[2018-06-25] MEDS ORDERED: OLANzapine TAB* 5 MG PO PRN (17:41)
[2018-06-25] MEDS: Pantoprazole TAB * 40 MG TAB PO SCH (20:33)
[2018-06-25] MEDS: Acetylcysteine CAP (RENAL)* 600 MG PO SCH (20:34)
[2018-06-25] MEDS: Heparin VIAL(*) 5000 UNITS/ML VIAL (FIVE THOUSAND) SUBCUT SCH (21:57)
--- NOTE | 2018-06-25 22:51 | HP ---
CC: Dr. David Putnam; Dr. Wale Bagley * HISTORY AND PHYSICAL: DATE OF ADMISSION: 06/25/18 PRIMARY CARE PROVIDER: Dr. David Putnam. BSW: Dr. Wale Bagley, [facility]. ATTENDING WHILE IN THE HOSPITAL: Dr. Jean Marie Barcenas * (report dictated by Kong Sheridan NP). CHIEF COMPLAINT: Shortness of breath with exertion. HISTORY OF PRESENT ILLNESS: Mr. Farah is a 67-year-old male with a history of AFib, ischemic cardiomyopathy, last EF of 30% to 35%, CAD, bipolar disorder, history of Marfan syndrome, hypertension, ADHD, chronic pain, GI bleed, who was recently admitted to our facility with an upper GI bleed due to gastric erosions and ulcer/peptic ulcer disease, which was attributed to patient being placed on blood thinning medication, Coumadin, for a clot that was noted on his Watchman device during a DIVYA. Mr. Farah's recent history is mildly complicated , so he was admitted here in April for AFib with RVR. He underwent a DIVYA and was found to have a clot in his Watchman's device. 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 Then, on 05/22/18, the patient presented to the emergency room and was admitted for a GI bleed, which was found to be an upper GI bleed. During this hospitalization, the patient's anticoagulation was stopped due to bleed and, in addition, Dr. Saha was consulted on his previous admission and she mentioned that she reviewed the DIVYA images and the clot that was previously seen in the Watchman's device is actually not a clot, but rather an artifact. Therefore, during his admission for his GI bleed, he was given 2 units of packed red blood cells and subsequently his anticoagulation was stopped because there was no clot to begin with. He was discharged with a followup with his PCP to discuss the need to restart aspirin and reconsider anticoagulation despite not having a clot in DIVYA, as previously thought. Since he was discharged from this hospital for his GI bleed, he has followed up with his primary care provider who deferred the decision to restart aspirin and revisit possible long-term anticoagulation to his production clerks supervisor. It appears, the patient has not followed up with his production clerks supervisor. This brings us to the present day. The patient presented to the emergency department today reporting that he has some increase in shortness of breath over the past 2 to 3 days. He reports that shortness of breath only occurs with exertion while walking up or down steps. He denies any chest pain, cough or palpitations. He does mention briefly that he has been having chills occasionally for the past 2 days. On presentation to the emergency room, his pulse was 132, but not in any acute distress. He was noted to be slightly anemic. In addition, his creatinine was slightly elevated at 1.38, lactic acid of 2.4 and BNP of 274. In addition, troponin was 0.03. His initial EKG showed atrial fibrillation with RVR. Chest x-ray revealed no acute cardiopulmonary disease. The patient was given IV fluids and a dose of Cardizem while in the emergency department and now has a rate of 92 to 105. Because of the concern for the atrial fibrillation and shortness of breath, we were asked to evaluate for admission. PAST MEDICAL HISTORY: 1. Atrial fibrillation, with Watchman's device. 2. Ischemic cardiomyopathy, EF 30% to 35%. 3. CAD. 4. Bipolar. 5. Marfan syndrome. 6. Hypertension. 7. ADHD. 8. Chronic pain. PAST SURGICAL HISTORY: 1. A Watchman's device placed. 2. Cardiac catheterization with 2 stents. 3. C-spine fusion. 4. Ablation. MEDICATIONS: 1. Depakote 1500 mg p.o. q.a.m. 2. Amiodarone 200 mg p.o. daily. 3. Tylenol 650 mg p.o. q.4 hours p.r.n. 4. Metoprolol succinate 50 mg p.o. daily. 5. Ramipril 5 mg p.o. daily. 6. Protonix 40 mg p.o. b.i.d. 7. Zyprexa 5 mg p.o. at bedtime p.r.n. ALLERGIES TO MEDICATIONS: No known drug allergies. FAMILY HISTORY: Mother had a history of colon cancer. Father had a history of AFib and [place]. Surrogate decision maker is his , Dana Farah. SOCIAL HISTORY: He is a former smoker. He quit over 15 years ago. He reports approximately a pack per day for 15 years. He rarely drinks alcohol, less than once a month. He denies drug use. He lives with his and he is independent in his ADLs. REVIEW OF SYSTEMS: Constitutional: The patient denies fevers and anorexia. He does report occasional "chills". Cardiac: He denies chest pain. Denies edema. Denies palpitations. Respiratory: He reports shortness of breath with exertion. He denies shortness of breath while lying flat. He denies cough, denies hemoptysis. GI: No nausea or vomiting, no diarrhea, no abdominal pain. : No dysuria, no increase in frequency, no gross hematuria. Neuro: No focal weakness or sensory loss. Eyes: No visual complaints. ENT: No dysphagia, sore throat, and nasal congestion. Musculoskeletal: No arthralgias or myalgias acutely. The patient reports he does have chronic pain due to Marfan's syndrome. Skin: No rashes, lesions or ulcers. Psych: No psychosis. The patient does report anxiety and depression, but are well controlled. PHYSICAL EXAMINATION CONSTITUTIONAL: Mr. Martinez is a 67-year-old male who is sitting in bed, he appears in no acute distress. VITAL SIGNS: Temp 99.3, pulse 96, respirations 26, O2 sat 94% on room air, blood pressure 131/93. HEENT: Eyes: Conjunctiva pink. EOMs intact. PERRLA. ENT: External ears and nose are normal. Lips normal. Oropharynx is moist and free from lesions. Posterior oropharynx is free from erythema, exudate, lesions. LYMPHATIC: No cervical or supraclavicular lymphadenopathy. NECK: Supple. Range of motion is good. RESPIRATORY: No accessory muscle use. Lung sounds are clear to auscultation. No rales, rhonchi, or wheezing. CARDIAC: S1 and S2 present. Rate irregular. No murmurs, rubs or gallops. ABDOMEN: Soft, nontender, nondistended. Bowel sounds x4. EXTREMITIES: No lower extremity edema. Pedal pulses 2+ bilaterally. MUSCULOSKELETAL: No clubbing or cyanosis. No abnormalities. Full range of motion. SKIN: No rashes or lesions. NEURO: Cranial nerves II through XII intact. Moves all extremities. Sensation intact to light touch. PSYCH: The patient is alert and oriented x3. The patient is mildly hyperverbal at times. The patient's mood is appropriate and affect is normal. DIAGNOSTIC STUDIES/LAB DATA: Labs: WBC 6.2, hemoglobin 11, hematocrit 34, platelets 412. Sodium 139, potassium 4.0, chloride 103, carbon dioxide 28, BUN 22, creatinine 1.38. Glucose 121, lactic acid 2.4, calcium 9.4, magnesium 2.0. Total bilirubin 0.40, AST 12, ALT 8, alk phos 73, CK 80. Troponin 0.03. BNP 274. TSH 175. Urine: Urine is positive for protein and squamous epithelial cells, otherwise negative. Chest x-ray: Impression: No acute cardiopulmonary process. EKG: EKG on admission to emergency room revealed atrial fibrillation with a rate of 119, no ST elevation. ASSESSMENT AND PLAN: 1. Shortness of breath with exertion: I suspect the patient's shortness of breath is due to rapid atrial fibrillation. Although it should be noted that the patient has a mildly elevated lactic acid at 2.4, in addition, his troponin is slightly elevated at 0.30 and his BNP is 274; this, in conjunction with tachycardia; we will rule out pulmonary embolism. CTA of the chest has been ordered. Since the patient's creatinine is slightly elevated at 1.38, he will receive mg p.o. b.i.d. x2 days for renal protection. In addition, we will trend his creatinines. The patient is currently undergoing a CTA. I will await its review and plan accordingly. 2. Atrial fibrillation: The patient is currently rate controlled and hovering in the high 90s to low 100s. The patient only received 1 dose of Cardizem while in the emergency room, a 10 mg IV push. At this time, I do not think it is necessary to add any medications to his regimen. Instead, I will resume his home medications as he has been rate controlled on these previously, per Cardiology notes from [facility]. The patient will be placed on telemetry and we will monitor his rate and change our plan accordingly. 3. Ischemic cardiomyopathy with ejection fraction of 30% to 35%: The patient does not currently appear to be in fluid overload as his lung sounds are clear and he is not feeling short of breath with laying flat. His last echocardiogram was on 04/21/18, which revealed an ejection fraction of 30% to 35 %. We will monitor the patient's fluid status. 4. Coronary artery disease: As previously mentioned, the patient's trop was mildly elevated. Therefore, we will trend his troponins q.3 hours x4 total. We will also continue the patient's ramipril, Toprol and amiodarone. We will continue to hold the patient's aspirin in light of recent gastrointestinal bleed until this can be discussed with Cardiology. 5. Bipolar: The patient is on Depakote 1500 mg daily in the morning. I have ordered Depakote level to be drawn tomorrow morning. There was a question in the previous note of compliance. The patient is mildly hyperverbal now. We will continue supportive care. 6. Marfan syndrome: Supportive care. 7. Hypertension: The patient is currently normotensive. We will resume the patient's blood pressure meds as previously prescribed. 8. Attention deficit hyperactivity disorder: Supportive care. 9. Chronic pain: Supportive care. 10. Fluids, electrolytes and nutrition: The patient will be given a heart- healthy diet. 11. Code status: Full code. 12. DVT prophylaxis: The patient is a high risk for DVT; therefore, he has been placed on subcu heparin 5000 units q.8 hours. 13. Disposition: The patient will be placed on telemetry for OBV. This plan was discussed with my attending, Dr. Jean Marie Barcenas, who agrees with my plan. TIME SPENT: Approximately 60 minutes were spent on this admission, greater than half the time was spent [id number] with the patient, completing my physical and obtaining history. KONG SHERIDAN, MARTHA [id number]/CPS #: [id number] JANEY
[2018-06-26] MEDS: Heparin VIAL(*) 5000 UNITS/ML VIAL (FIVE THOUSAND) SUBCUT SCH ×3 (05:21→21:26)
[2018-06-26 06:43] LABS: ABS Basophils 0 10^3/ul (0-0.2); ABS Eosinophils 0.2 10^3/ul (0-0.6); ABS Monocytes 0.3 10^3/ul (0-0.8); ABS Neutrophils 2.8 10^3/ul (1.5-7.7); ABS Nucleated RBC 0 10^3/ul; Eosinophil % 3.8 %; Hematocrit 27 % (42-52); Hemoglobin 8.9 g/dl (14.0-18.0); Lymphocyte % 36.8 %; Mean Corpuscular HGB Conc 33 g/dl (31-36); Mean Corpuscular Hemoglobin 28 pg (27-31); Mean Corpuscular Volume 85 fL (80-94); Mean Platelet Volume 7.5 fL (7.4-10.4); Nucleated Red Blood Cells % 0.1; Platelet Count 326 10^3/ul (150-450); Red Cell Distribution Width 17 % (10.5-15); White Blood Count 5.3 10^3/ul (3.5-10.8)
[2018-06-26 07:07] LABS: Calcium 8.7 mg/dL (8.6-10.3); EGFR Non-African American 50.7 (>60); Potassium 3.6 mmol/L (3.5-5.0)
[2018-06-26] MEDS: Aspirin 81 mg CHEW TAB* 81 MG TAB.CHEW PO SCH (08:49)
[2018-06-26] MEDS: Acetaminophen TAB* 325 MG PO PRN ×2 (08:49→20:56)
[2018-06-26] MEDS: Metoprolol Succinate XL TAB* 50 MG PO SCH (08:49)
[2018-06-26] MEDS: Pantoprazole TAB * 40 MG TAB PO SCH ×2 (08:49→20:56)
[2018-06-26] MEDS: Amiodarone TAB* 200 MG PO SCH (08:49)
[2018-06-26] MEDS: Ramipril CAP* 5 MG PO SCH (08:49)
[2018-06-26] MEDS: Divalproex ER TAB(*) 500 MG PO SCH (08:50)
[2018-06-26] MEDS: Acetylcysteine CAP (RENAL)* 600 MG PO SCH ×2 (08:50→20:56)
--- NOTE | 2018-06-26 13:02 | CONSULT ---
Medications Active Medications: Acetaminophen (Tylenol Tab*) 650 mg PO Q4H PRN PRN Reason: FEVER/PAIN Last Admin: 06/26/18 08:49 Dose: 650 mg Acetylcysteine (Acetylcysteine Cap (Renal)*) 1,200 mg PO BID [facility] Stop: 06/27/18 20:59 Last Admin: 06/26/18 08:50 Dose: 1,200 mg Amiodarone HCl (Cordarone Tab*) 200 mg PO DAILY [facility] Last Admin: 06/26/18 08:49 Dose: 200 mg Aspirin (Aspirin 81 Mg Chew Tab*) 81 mg PO DAILY [facility] Last Admin: 06/26/18 08:49 Dose: 81 mg Divalproex Sodium (Depakote Er Tab(*)) 1,500 mg PO QAM [facility] Last Admin: 06/26/18 08:50 Dose: 1,500 mg Heparin Sodium (Porcine) (Heparin Vial(*)) 5,000 units SUBCUT Q8HR [facility] Last Admin: 06/26/18 05:21 Dose: 5,000 units Metoprolol Succinate (Toprol Xl Tab*) 50 mg PO DAILY [facility] Last Admin: 06/26/18 08:49 Dose: 50 mg Olanzapine (Zyprexa Tab*) 5 mg PO BEDTIME PRN PRN Reason: SLEEP Last Admin: 06/26/18 00:55 Dose: 5 mg Pantoprazole Sodium (Protonix Tab (Nf)) 40 mg PO BID [facility] Last Admin: 06/26/18 08:49 Dose: 40 mg Ramipril (Altace Cap*) 5 mg PO DAILY [facility] Last Admin: 06/26/18 08:49 Dose: 5 mg Home Medications: Amiodarone TAB* [Cordarone Tab*] 200 mg PO DAILY tab 01/04/18 [Rx Confirmed 06/01] OLANzapine TAB* [Zyprexa 5 MG TAB*] 5 mg PO BEDTIME PRN 30 Days #30 tab [Rx Confirmed 06/25/18] Ramipril CAP* [Altace CAP*] 5 mg PO DAILY cap 01/04/18 [Rx Confirmed 06/25/18] Acetaminophen TAB* [Tylenol TAB*] 650 mg PO Q4H PRN tab 04/21/18 [Rx Confirmed 06/25/18] Divalproex ER TAB(*) [Depakote ER TAB(*)] 1,500 mg PO QAM 05/22/18 [History Confirmed 06/25/18] Pantoprazole TAB * [Protonix TAB (NF)] 40 mg PO BID #90 tab 05/27/18 [Rx Confirmed 06/25/18] Metoprolol Succinate 50 mg PO DAILY 06/25/18 [History Confirmed 06/25/18] Review of Systems - Measurements Intake and Output: Intake and Output Last 24 Hours 06/24/18 06/25/18 06/26/18 06/27/18 06:59 06:59 06:59 06:59 Intake Total 3040 420 Output Total 200 Balance 2840 420 Weight 262 lb 12.8 oz Intake: IV Fluids 1000 Oral 2040 420 Output: Urine 200 - Review of Systems Review of Systems Statement: All other review of systems negative, unless stated above. Objective Vital Signs: Temp Pulse Resp BP Pulse Ox 97.6 F 59 16 114/68 93 06/26/18 11:03 06/26/18 11:03 06/26/18 11:03 06/26/18 11:03 06/26/18 11:03 Oxygen Devices in Use Now: None Laboratory Results: 06/26/18 05:54 06/26/18 05:54 APTT 30.0 seconds (26.0-36.3) 06/25/18 14:03 Total Bilirubin 0.40 mg/dL (0.2-1.0) 06/25/18 14:03 AST 12 U/L (13-39) L 06/25/18 14:03 ALT 8 U/L (7-52) 06/25/18 14:03 Alkaline Phosphatase 73 U/L (34-104) 06/25/18 14:03 CK-MB (CK-2) 2.8 ng/mL (0.6-6.3) 06/25/18 14:03 B-Natriuretic Peptide 274 pg/mL (<=100) H 06/25/18 14:03 Total Protein 6.8 g/dL (6.4-8.9) 06/25/18 14:03 Albumin 4.1 g/dL (3.2-5.2) 06/25/18 14:03 Globulin 2.7 g/dL (2-4) 06/25/18 14:03 Albumin/Globulin Ratio 1.5 (1-3) 06/25/18 14:03 TSH 1.75 mcIU/mL (0.34-5.60) 06/25/18 14:03 06/25/18 06/25/18 06/25/18 14:03 17:14 20:07 Troponin I 0.03 0.04 H* 0.10 H* 06/25/18 06/26/18 23:19 05:54 Troponin I 0.23 H* 0.75 H* Diagnostic Imaging: Echo 06/26/2918 The left ventricular chamber size is normal. Moderate concentric left ventricular hypertrophy is observed. There is global hypokinesis of the left ventricle with minor regional variation. There is mildly decreased left ventricular systolic function. The estimated ejection fraction is 40-45%. Abnormal left ventricular diastolic function is observed. The left atrium is moderate to severely dilated. The right ventricle is moderately dilated. The right ventricular global systolic function is mildly reduced. No more than mild valvular regurgitation noted There is evidence of mild to moderate pulmonary hypertension. Compared to prior study from 04/20/2018 the LVEF has improved from 30-35%
--- NOTE | 2018-06-26 16:26 | CONSULT ---
Subjective Date of Service: 06/26/18 Interval History: Admission Date 06/25/2018 Consult Date: 06/26/2018 Service: Hospitalist PMD: Dr Putnam Eyeg[employer] Generator Dr. Wale Bagley CHIEF COMPLAINT: Shortness of breath Reason for consult: Atrial fibrillation, Elevated troponin level. HISTORY OF PRESENT ILLNESS: Mr. Farah is a 67-year-old man with a history as below. He was admitted with SANFORD particular descending stairs and found with rapid atrial fibrillation. He spontaneously converted to sinus rhythm and is now entirely asymptomatic. His troponin level is much higher relatively than previous admission for similar presentation last year. He denies any recent bleeding, melena, CP palpitations or syncope. PAST MEDICAL HISTORY: The patient has a past medical history of: 1. Fluctuating primarily non-ischemic cardiomyopathy/CHF, as low as 25% in the past currently 40-45% this admission. 2. Coronary artery disease, status post stenting to the circumflex in 2007, catheterization in 2015, 40% occlusion of the LAD with 30% occlusions distally and in the diagonal, circumflex nondominant with patent stents, and mild in- stent restenosis, right coronary artery dominant with 20% occlusion followed by 40% distal occlusion. 3. Paroxysmal atrial flutter, status post ablation in 2014. 4. Paroxysmal AFib, on amiodarone, history watchman device 5. Hypertension. 6. Dyslipidemia. 7. Bipolar disorder/versus ADHD. 8. Marfan's. 9. Closed head injury, distant. 10. 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 He had been taking multiple NSAIDs at that time which he has since stopped. PAST SURGICAL HISTORY: Includes: 1. Watchman implant in 2017. 2. Hernia surgery. 3. Wrist surgery. 4. Leg surgery. 5. Corneal and retinal procedures. 6. Cervical spine fusion, Dr. Finn. ALLERGIES: He has no known drug allergies but reported intolerance to anticoagulants. FAMILY HISTORY: His mother at age 62 of cancer. His father at age 66 of myocardial infarction. SOCIAL HISTORY: He is a former smoker. He quit over 15 years ago. He reports approximately a pack per day for 15 years. He rarely drinks alcohol, less than once a month. He denies drug use. He lives with his Medications Active Medications: Acetaminophen (Tylenol Tab*) 650 mg PO Q4H PRN PRN Reason: FEVER/PAIN Last Admin: 06/26/18 08:49 Dose: 650 mg Acetylcysteine (Acetylcysteine Cap (Renal)*) 1,200 mg PO BID [facility] Stop: 06/27/18 20:59 Last Admin: 06/26/18 08:50 Dose: 1,200 mg Amiodarone HCl (Cordarone Tab*) 200 mg PO DAILY [facility] Last Admin: 06/26/18 08:49 Dose: 200 mg Aspirin (Aspirin 81 Mg Chew Tab*) 81 mg PO DAILY [facility] Last Admin: 06/26/18 08:49 Dose: 81 mg Divalproex Sodium (Depakote Er Tab(*)) 1,500 mg PO QAM [facility] Last Admin: 06/26/18 08:50 Dose: 1,500 mg Heparin Sodium (Porcine) (Heparin Vial(*)) 5,000 units SUBCUT Q8HR [facility] Last Admin: 06/26/18 14:19 Dose: 5,000 units Metoprolol Succinate (Toprol Xl Tab*) 50 mg PO DAILY [facility] Last Admin: 06/26/18 08:49 Dose: 50 mg Olanzapine (Zyprexa Tab*) 5 mg PO BEDTIME PRN PRN Reason: SLEEP Last Admin: 06/26/18 00:55 Dose: 5 mg Pantoprazole Sodium (Protonix Tab (Nf)) 40 mg PO BID [facility] Last Admin: 06/26/18 08:49 Dose: 40 mg Ramipril (Altace Cap*) 5 mg PO DAILY [facility] Last Admin: 06/26/18 08:49 Dose: 5 mg Home Medications: Amiodarone TAB* [Cordarone Tab*] 200 mg PO DAILY tab 01/04/18 [Rx Confirmed 06/01] OLANzapine TAB* [Zyprexa 5 MG TAB*] 5 mg PO BEDTIME PRN 30 Days #30 tab [Rx Confirmed 06/25/18] Ramipril CAP* [Altace CAP*] 5 mg PO DAILY cap 01/04/18 [Rx Confirmed 06/25/18] Acetaminophen TAB* [Tylenol TAB*] 650 mg PO Q4H PRN tab 04/21/18 [Rx Confirmed 06/25/18] Divalproex ER TAB(*) [Depakote ER TAB(*)] 1,500 mg PO QAM 05/22/18 [History Confirmed 06/25/18] Pantoprazole TAB * [Protonix TAB (NF)] 40 mg PO BID #90 tab 05/27/18 [Rx Confirmed 06/25/18] Metoprolol Succinate 50 mg PO DAILY 06/25/18 [History Confirmed 06/25/18] Review of Systems - Measurements Intake and Output: Intake and Output Last 24 Hours 06/24/18 06/25/18 06/26/18 06/27/18 06:59 06:59 06:59 06:59 Intake Total 3040 680 Output Total 200 600 Balance 2840 80 Weight 262 lb 12.8 oz Intake: IV Fluids 1000 Oral 2040 680 Output: Urine 200 600 - Review of Systems Constitutional Symptoms: Negative: Weakness, Fatigue, Night Sweats, Unexplained Falls Dermatology: Negative: Rash, Skin Lesions HEENT: Negative: Change in Hearing, Vertigo Eyes: Negative: Change in Vision, Double Vision Thyroid: Negative: Cold Intolerance, Heat Intolerance, Constipation, Palpitations, Weight Loss, Weight Gain Pulmonary: Positive: Shortness of Breath, Exercise Intolerance Negative: Sputum, Hemoptysis, Wheezing, Respiratory Distress, COPD, Asthma, Home Oxygen Cardiology: Positive: Shortness of Breath Negative: Chest Pain, Palpitations, Swelling of Ankles, Peripheral Vascular Dis, Edema, Faintness, Syncope, Claudication, Paroxysmal Nocturnal Dyspnea, Orthopnea Gastroenterology: Negative: Abdominal Pain, Nausea, Vomiting, Melena Genital - Urinary: Negative: Dysuria, Hematuria Musculoskeletal: Negative: Joint Pain, Joint Stiffness Endocrinology: Negative: Polydipsia, Polyuria Hematologic/Lymphatic: Negative: Use of Anticoagulant, Use of Antiplatelet Drugs Neurology: Negative: Unexplained Weakness, Hx Seizures Psychiatry: Negative: Unusual Anxiety, Suicidal Ideation Allergic/Immunologic: Negative: Hx HIV, Immunocompromise Review of Systems Statement: All other review of systems negative, unless stated above. Objective Vital Signs: Temp Pulse Resp BP Pulse Ox 96.6 F 52 16 116/64 95 06/26/18 15:09 06/26/18 15:09 06/26/18 15:09 06/26/18 15:09 06/26/18 15:09 Oxygen Devices in Use Now: None Appearance: nad, pleasant Ears/Nose/Mouth/Throat: Clear Oropharnyx, Mucous Membranes Moist Neck: NL Appearance and Movements; NL JVP, Trachea Midline Respiratory: Symmetrical Chest Expansion and Respiratory Effort, Clear to Auscultation Cardiovascular: NL Sounds; No Murmurs; No JVD, RRR, No Edema Abdominal: NL Sounds; No Tenderness; No Distention, - - obese Extremities: No Clubbing, Cyanosis Skin: No Rash or Ulcers Neurological: Alert and Oriented x 3 Laboratory Results: 06/26/18 05:54 06/26/18 05:54 APTT 30.0 seconds (26.0-36.3) 06/25/18 14:03 Total Bilirubin 0.40 mg/dL (0.2-1.0) 06/25/18 14:03 AST 12 U/L (13-39) L 06/25/18 14:03 ALT 8 U/L (7-52) 06/25/18 14:03 Alkaline Phosphatase 73 U/L (34-104) 06/25/18 14:03 CK-MB (CK-2) 2.8 ng/mL (0.6-6.3) 06/25/18 14:03 B-Natriuretic Peptide 274 pg/mL (<=100) H 06/25/18 14:03 Total Protein 6.8 g/dL (6.4-8.9) 06/25/18 14:03 Albumin 4.1 g/dL (3.2-5.2) 06/25/18 14:03 Globulin 2.7 g/dL (2-4) 06/25/18 14:03 Albumin/Globulin Ratio 1.5 (1-3) 06/25/18 14:03 TSH 1.75 mcIU/mL (0.34-5.60) 06/25/18 14:03 06/25/18 06/25/18 06/25/18 14:03 17:14 20:07 Troponin I 0.03 0.04 H* 0.10 H* 06/25/18 06/26/18 23:19 05:54 Troponin I 0.23 H* 0.75 H* Diagnostic Imaging: Echo 06/26/2918 The left ventricular chamber size is normal. Moderate concentric left ventricular hypertrophy is observed. There is global hypokinesis of the left ventricle with minor regional variation. There is mildly decreased left ventricular systolic function. The estimated ejection fraction is 40-45%. Abnormal left ventricular diastolic function is observed. The left atrium is moderate to severely dilated. The right ventricle is moderately dilated. The right ventricular global systolic function is mildly reduced. No more than mild valvular regurgitation noted There is evidence of mild to moderate pulmonary hypertension. 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 His dyspnea resolved with conversion of atrial fibrillation to sinus rhythm. There is no convincing evidence of a type 1 plaque disruption [place]. I recommend that he have an exercise nuclear stress test tomorrow (ordered, on medications - known CAD) to evaluate for progression of obstructive atherosclerotic epicardial CAD as a contribution to his clinical presentation. If this study is without ischemic defect he can be discharged from a cardiac standpoint. Unless there is a contraindication he should restart aspirin 81 mg po daily and follow up with Dr. Bagley and Dr. Putnam for further secondary prevention evaluation and treatment including but not limited to starting a statin. Thank you for allowing me to participate in the cardiovascular care of this patient. Please do not hesitate to contact me with questions or concerns.
--- NOTE | 2018-06-26 17:15 | PN ---
Subjective Date of Service: 06/26/18 Interval History: Pt seen and examined. Meds and labs reviewed. CC: N/A ROS: Denied MILAN/dizziness, F/C, N/V, CP, SOB, increased cough, sputum production , abd pain, diarrhea, constipation, dysuria, myalgias, arthralgias, throat pain , and new skin lesions. The rest of the 14 point ROS are unremarkable. PHYSICAL EXAM: GEN APPEARANCE: Awake, not in acute distress HEENT: NC/AT, PERRLA, moist oral mucosa, (-) throat erythema NECK: Soft, supple, (-) cervical LAD, (-)JVD HEART: S1S2 WNL, RRR, No MRG CHEST: CTA, BL, GAE, No W/R/R ABD: Soft, ND/NT, NABS 4x Q EXT: No C/C/E SKIN: Warm to touch PSYCH: No active psychosis, hallucinations, depression, SI/HI Objective Active Medications: Acetaminophen (Tylenol Tab*) 650 mg PO Q4H PRN PRN Reason: FEVER/PAIN Last Admin: 06/26/18 08:49 Dose: 650 mg Acetylcysteine (Acetylcysteine Cap (Renal)*) 1,200 mg PO BID [facility] Stop: 06/27/18 20:59 Last Admin: 06/26/18 08:50 Dose: 1,200 mg Amiodarone HCl (Cordarone Tab*) 200 mg PO DAILY [facility] Last Admin: 06/26/18 08:49 Dose: 200 mg Aspirin (Aspirin 81 Mg Chew Tab*) 81 mg PO DAILY [facility] Last Admin: 06/26/18 08:49 Dose: 81 mg Divalproex Sodium (Depakote Er Tab(*)) 1,500 mg PO QAM [facility] Last Admin: 06/26/18 08:50 Dose: 1,500 mg Heparin Sodium (Porcine) (Heparin Vial(*)) 5,000 units SUBCUT Q8HR [facility] Last Admin: 06/26/18 14:19 Dose: 5,000 units Metoprolol Succinate (Toprol Xl Tab*) 50 mg PO DAILY [facility] Last Admin: 06/26/18 08:49 Dose: 50 mg Olanzapine (Zyprexa Tab*) 5 mg PO BEDTIME PRN PRN Reason: SLEEP Last Admin: 06/26/18 00:55 Dose: 5 mg Pantoprazole Sodium (Protonix Tab (Nf)) 40 mg PO BID [facility] Last Admin: 06/26/18 08:49 Dose: 40 mg Ramipril (Altace Cap*) 5 mg PO DAILY [facility] Last Admin: 06/26/18 08:49 Dose: 5 mg Vital Signs - 8 hr 06/26/18 06/26/18 11:03 15:09 Temperature 97.6 F 96.6 F Pulse Rate 59 52 Respiratory 16 16 Rate Blood Pressure 114/68 116/64 (mmHg) O2 Sat by Pulse 93 95 Oximetry Oxygen Devices in Use Now: None Result Diagrams: 06/26/18 05:54 06/26/18 05:54 Microbiology and Other Data: Microbiology 06/25/18 16:37 Influenza Types A,B Antigen - Final Nasal Specimen received for Influenza A/B Molecular testing Assess/Plan/Problems-Billing Assessment: - Patient Problems (1) SANFORD (dyspnea on exertion) Current Visit: Yes Status: Acute Code(s): R06.09 - OTHER FORMS OF DYSPNEA SNOMED Code(s): 84131530 Comment: -Possibly due to P. A. fib w/RVR -Given mildly elevated troponins and renal insufficiency, possible Type II [place]/ Demand ischemia given A. fib w/RVR that has now resolved -Consulted Dr. Stafford this AM due to known cardiac history to see if pt for cath vs. stress; per Dr. Stafford to stress for now and will defer -For 2Decho to assess wall motion and EF given elevated troponins -CTA of Chest: No PE; (+)CAD (2) Atrial fibrillation with RVR Current Visit: No Status: Resolved Priority: High Code(s): I48.91 - UNSPECIFIED ATRIAL FIBRILLATION SNOMED Code(s): 289688114306209 Comment: -RVR has resolved and now on NSR -Continue Metoprolol, Amiodarone, and ASA -Defer decision to fully anticoagulated with Cards given recent GIB on previous admission (3) CAD (coronary artery disease) Current Visit: No Status: Chronic Code(s): I25.10 - ATHSCL HEART DISEASE OF [place] CORONARY ARTERY W/O ANG PCTRS SNOMED Code(s): 73090365 Comment: -Continue ASA, Metoprolol, and Ramipril (4) Bipolar 1 disorder with moderate bari Current Visit: No Status: Acute Comment: -Continue Depakote (5) DVT prophylaxis Current Visit: No Status: Acute Priority: Medium Onset Date: 08/28/14 Code(s): [id number] - SNOMED Code(s): 811177548 Comment: -Continue Heparin SQq8H Status and Disposition: -For PT eval
[2018-06-27] MEDS: Heparin VIAL(*) 5000 UNITS/ML VIAL (FIVE THOUSAND) SUBCUT SCH ×3 (05:27→21:23)
[2018-06-27 09:24] LABS: ABS Basophils 0.1 10^3/ul (0-0.2); ABS Eosinophils 0.3 10^3/ul (0-0.6); ABS Lymphocytes 1.5 10^3/ul (1.0-4.8); ABS Monocytes 0.4 10^3/ul (0-0.8); ABS Neutrophils 2.2 10^3/ul (1.5-7.7); ABS Nucleated RBC 0 10^3/ul; Eosinophil % 6.4 %; Hematocrit 28 % (42-52); Hemoglobin 9.3 g/dl (14.0-18.0); Lymphocyte % 32.8 %; Mean Corpuscular HGB Conc 33 g/dl (31-36); Mean Corpuscular Hemoglobin 28 pg (27-31); Mean Corpuscular Volume 85 fL (80-94); Mean Platelet Volume 7.2 fL (7.4-10.4); Nucleated Red Blood Cells % 0.1; Platelet Count 299 10^3/ul (150-450); Red Cell Distribution Width 17 % (10.5-15); White Blood Count 4.4 10^3/ul (3.5-10.8)
[2018-06-27 09:35] LABS: Albumin 3.4 g/dL (3.2-5.2); Albumin/Globulin Ratio 1.2 (1-3); BUN/Creatinine Ratio 19.6 (8-20); Calcium 9.1 mg/dL (8.6-10.3); EGFR Non-African American 65.6 (>60); Globulin 2.8 g/dL (2-4); Magnesium 2.1 mg/dL (1.9-2.7); Phosphorus 2.7 mg/dL (2.5-5.0); Potassium 4.2 mmol/L (3.5-5.0); Total Bilirubin 0.3 mg/dL (0.2-1.0); Total Protein 6.2 g/dL (6.4-8.9)
[2018-06-27] MEDS ORDERED: Regadenoson* 0.4 MG/5 ML SYRINGE ONE (12:24)
[2018-06-27] MEDS: Ramipril CAP* 5 MG PO SCH (15:26)
[2018-06-27] MEDS: Divalproex ER TAB(*) 500 MG PO SCH (15:26)
[2018-06-27] MEDS: Metoprolol Succinate XL TAB* 50 MG PO SCH (15:27)
[2018-06-27] MEDS: Aspirin 81 mg CHEW TAB* 81 MG TAB.CHEW PO SCH (15:27)
[2018-06-27] MEDS: Pantoprazole TAB * 40 MG TAB PO SCH ×2 (15:27→21:23)
[2018-06-27] MEDS: Amiodarone TAB* 200 MG PO SCH (15:27)
--- NOTE | 2018-06-27 15:32 | PN ---
Subjective Date of Service: 06/27/18 Interval History: Pt seen and examined. Meds and labs reviewed. CC: N/A ROS: Denied MILAN/dizziness, F/C, N/V, CP, SOB, increased cough, sputum production , abd pain, diarrhea, constipation, dysuria, myalgias, arthralgias, throat pain , and new skin lesions. The rest of the 14 point ROS are unremarkable. PHYSICAL EXAM: GEN APPEARANCE: Awake, not in acute distress HEENT: NC/AT, PERRLA, moist oral mucosa, (-) throat erythema NECK: Soft, supple, (-) cervical LAD, (-)JVD HEART: S1S2 WNL, RRR, No MRG CHEST: CTA, BL, GAE, No W/R/R ABD: Soft, ND/NT, NABS 4x Q EXT: No C/C/E SKIN: Warm to touch PSYCH: No active psychosis, hallucinations, depression, SI/HI Objective Active Medications: Acetaminophen (Tylenol Tab*) 650 mg PO Q4H PRN PRN Reason: FEVER/PAIN Last Admin: 06/26/18 20:56 Dose: 650 mg Acetylcysteine (Acetylcysteine Cap (Renal)*) 1,200 mg PO BID [facility] Stop: 06/27/18 20:59 Last Admin: 06/26/18 20:56 Dose: 1,200 mg Amiodarone HCl (Cordarone Tab*) 200 mg PO DAILY [facility] Last Admin: 06/26/18 08:49 Dose: 200 mg Aspirin (Aspirin 81 Mg Chew Tab*) 81 mg PO DAILY [facility] Last Admin: 06/26/18 08:49 Dose: 81 mg Divalproex Sodium (Depakote Er Tab(*)) 1,500 mg PO QAM [facility] Last Admin: 06/26/18 08:50 Dose: 1,500 mg Heparin Sodium (Porcine) (Heparin Vial(*)) 5,000 units SUBCUT Q8HR [facility] Last Admin: 06/27/18 05:27 Dose: 5,000 units Metoprolol Succinate (Toprol Xl Tab*) 50 mg PO DAILY [facility] Last Admin: 06/26/18 08:49 Dose: 50 mg Olanzapine (Zyprexa Tab*) 5 mg PO BEDTIME PRN PRN Reason: SLEEP Last Admin: 06/26/18 00:55 Dose: 5 mg Pantoprazole Sodium (Protonix Tab (Nf)) 40 mg PO BID [facility] Last Admin: 06/26/18 20:56 Dose: 40 mg Ramipril (Altace Cap*) 5 mg PO DAILY [facility] Last Admin: 06/26/18 08:49 Dose: 5 mg Vital Signs - 8 hr 06/27/18 06/27/18 08:00 12:06 Temperature 97.4 F Pulse Rate 57 Respiratory 16 20 Rate Blood Pressure 163/89 (mmHg) O2 Sat by Pulse 98 Oximetry Oxygen Devices in Use Now: None Result Diagrams: 06/27/18 09:08 06/27/18 09:08 Microbiology and Other Data: Microbiology 06/25/18 16:37 Influenza Types A,B Antigen - Final Nasal Specimen received for Influenza A/B Molecular testing Assess/Plan/Problems-Billing Assessment: - Patient Problems (1) SANFORD (dyspnea on exertion) Current Visit: Yes Status: Acute Code(s): R06.09 - OTHER FORMS OF DYSPNEA SNOMED Code(s): 89871214 Comment: -Possibly due to P. A. fib w/RVR -Given mildly elevated troponins and renal insufficiency, possible Type II [place]/ Demand ischemia given A. fib w/RVR that has now resolved -CTA chest (06/25): (-) PE (+)CAD -2D echo (06/26/17): Global hypokinesis of LV w/minor regional variation; EF =40 -45%, diastolic dysfunction; LA moderate to severely dilated; mild to moderate pulmonary HTN -Stress test today: Intermediate probability; no compelling stress-induced ischemia; fixed apical thinning possibly due to small infarct; dilated LV; Hypokineses most mared at septum and apical segment of inferior wall -D/W Dr. Napoles who mentions he will personally evaluate pt and review images and will await any further recommendations (2) Atrial fibrillation with RVR Current Visit: No Status: Resolved Priority: High Code(s): I48.91 - UNSPECIFIED ATRIAL FIBRILLATION SNOMED Code(s): 745009939923867 Comment: -RVR has resolved and now on NSR -Continue Metoprolol, Amiodarone, and ASA -Defer decision to fully anticoagulated with Cards given recent GIB on previous admission (3) CAD (coronary artery disease) Current Visit: No Status: Chronic Code(s): I25.10 - ATHSCL HEART DISEASE OF [place] CORONARY ARTERY W/O ANG PCTRS SNOMED Code(s): 12739333 Comment: -Continue ASA, Metoprolol, and Ramipril (4) Bipolar 1 disorder with moderate bari Current Visit: No Status: Acute Comment: -Continue Depakote (5) DVT prophylaxis Current Visit: No Status: Acute Priority: Medium Onset Date: 08/28/14 Code(s): [id number] - SNOMED Code(s): 557643157 Comment: -Continue Heparin SQq8H Status and Disposition: -For PT eval -Will await Dr. Johnson official input
[2018-06-27] MEDS: Acetylcysteine CAP (RENAL)* 600 MG PO SCH (16:02)
[2018-06-28] MEDS: Heparin VIAL(*) 5000 UNITS/ML VIAL (FIVE THOUSAND) SUBCUT SCH (05:28)
[2018-06-28 05:37] LABS: ABS Basophils 0.1 10^3/ul (0-0.2); ABS Eosinophils 0.2 10^3/ul (0-0.6); ABS Lymphocytes 1.9 10^3/ul (1.0-4.8); ABS Monocytes 0.4 10^3/ul (0-0.8); ABS Neutrophils 2.3 10^3/ul (1.5-7.7); ABS Nucleated RBC 0 10^3/ul; Eosinophil % 4.8 %; Hematocrit 28 % (42-52); Hemoglobin 9.1 g/dl (14.0-18.0); Mean Corpuscular HGB Conc 33 g/dl (31-36); Mean Corpuscular Hemoglobin 28 pg (27-31); Mean Corpuscular Volume 85 fL (80-94); Mean Platelet Volume 7.1 fL (7.4-10.4); Nucleated Red Blood Cells % 0; Platelet Count 363 10^3/ul (150-450); Red Blood Count 3.29 10^6/ul (4.00-5.40); Red Cell Distribution Width 16 % (10.5-15); White Blood Count 4.9 10^3/ul (3.5-10.8)
[2018-06-28 05:54] LABS: BUN/Creatinine Ratio 19.2 (8-20); Calcium 9.1 mg/dL (8.6-10.3); EGFR Non-African American 60.6 (>60); Potassium 4.7 mmol/L (3.5-5.0)
[2018-06-28] MEDS: Amiodarone TAB* 200 MG PO SCH (08:15)
[2018-06-28] MEDS: Pantoprazole TAB * 40 MG TAB PO SCH (08:15)
[2018-06-28] MEDS: Ramipril CAP* 5 MG PO SCH (08:15)
[2018-06-28] MEDS: Divalproex ER TAB(*) 500 MG PO SCH (08:15)
[2018-06-28] MEDS: Aspirin 81 mg CHEW TAB* 81 MG TAB.CHEW PO SCH (08:15)
[2018-06-28] MEDS: Metoprolol Succinate XL TAB* 50 MG PO SCH (08:15)
[2018-06-28 12:55] VITALS: BP 117/69
--- NOTE | 2018-06-28 13:54 | PN ---
Subjective Date of Service: 06/28/18 Interval History: Patient seen today, no acute disease. Cleared by cardiology for discharge. No anticoagulation given recent GI bleed. Denies any chest pain no active bleed. H/G stable between yesterday and today at 03/11! To follow up with his Financial Services Technician Dr. Willams in [place] and our GI Dr. Meehan Family History: Unchanged from Admission Social History: Unchanged from Admission Objective Active Medications: Acetaminophen (Tylenol Tab*) 650 mg PO Q4H PRN PRN Reason: FEVER/PAIN Last Admin: 06/26/18 20:56 Dose: 650 mg Amiodarone HCl (Cordarone Tab*) 200 mg PO DAILY [facility] Last Admin: 06/28/18 08:15 Dose: 200 mg Aspirin (Aspirin 81 Mg Chew Tab*) 81 mg PO DAILY [facility] Last Admin: 06/28/18 08:15 Dose: 81 mg Divalproex Sodium (Depakote Er Tab(*)) 1,500 mg PO QAM [facility] Last Admin: 06/28/18 08:15 Dose: 1,500 mg Heparin Sodium (Porcine) (Heparin Vial(*)) 5,000 units SUBCUT Q8HR [facility] Last Admin: 06/28/18 05:28 Dose: Not Given Metoprolol Succinate (Toprol Xl Tab*) 50 mg PO DAILY [facility] Last Admin: 06/28/18 08:15 Dose: 50 mg Olanzapine (Zyprexa Tab*) 5 mg PO BEDTIME PRN PRN Reason: SLEEP Last Admin: 06/26/18 00:55 Dose: 5 mg Pantoprazole Sodium (Protonix Tab (Nf)) 40 mg PO BID [facility] Last Admin: 06/28/18 08:15 Dose: 40 mg Ramipril (Altace Cap*) 5 mg PO DAILY [facility] Last Admin: 06/28/18 08:15 Dose: 5 mg Vital Signs - 8 hr 06/28/18 06/28/18 06/28/18 07:18 08:00 11:19 Temperature 97.6 F 97.5 F Pulse Rate 51 51 Respiratory 16 14 16 Rate Blood Pressure 132/79 117/69 (mmHg) O2 Sat by Pulse 89 94 Oximetry Oxygen Devices in Use Now: None Appearance: Awake, alert. no distress Eyes: No Scleral Icterus, PERRLA, - - EOMI Ears/Nose/Mouth/Throat: NL Teeth, Lips, Gums, Clear Oropharnyx, Mucous Membranes Moist Neck: NL Appearance and Movements; NL JVP Respiratory: Symmetrical Chest Expansion and Respiratory Effort, Clear to Auscultation Cardiovascular: NL Sounds; No Murmurs; No JVD, RRR, No Edema Abdominal: NL Sounds; No Tenderness; No Distention Extremities: No Edema Skin: No Rash or Ulcers Neurological: Alert and Oriented x 3 Result Diagrams: 06/28/18 05:17 06/28/18 05:17 Microbiology and Other Data: Microbiology 06/25/18 16:37 Influenza Types A,B Antigen - Final Nasal Specimen received for Influenza A/B Molecular testing Assess/Plan/Problems-Billing Assessment: 67 y/o male presented to ED for shortess of breath found to be in Afib and anemia. Currently off anticoagulation and converted to sinus - Patient Problems (1) Anemia Status: Acute Code(s): D64.9 - ANEMIA, UNSPECIFIED SNOMED Code(s): 232020119 Comment: - Secondary to h/of PUD and chronic anticoagulations - Previously seen by Dr. Meehan in 05/218 s/p EGD which did shows erosion gastritis and PUD. - Off warfarin for now as per cardiology given his GI bleed. OK to remain on baby aspirin - PPI bid and follow up with Dr. Meehan from GI (2) PUD (peptic ulcer disease) Status: Acute Code(s): K27.9 - PEPTIC ULC, SITE UNSP, UNSP AC OR CHR, W/O HEMOR OR PERF SNOMED Code(s): 90280240 Comment: - Secondary to h/of PUD and chronic anticoagulations - Previously seen by Dr. Meehan in 05/218 s/p EGD which did shows erosion gastritis and PUD. - Off warfarin for now as per cardiology given his GI bleed. OK to remain on baby aspirin - PPI bid and follow up with Dr. Meehan from GI (3) SANFORD (dyspnea on exertion) Status: Acute Code(s): R06.09 - OTHER FORMS OF DYSPNEA SNOMED Code(s): 17191069 Comment: -Possibly due to P. A. fib w/RVR -Given mildly elevated troponins and renal insufficiency, possible Type II [place]/ Demand ischemia given A. fib w/RVR that has now resolved -CTA chest (06/25): (-) PE (+)CAD -2D echo (06/26/17): Global hypokinesis of LV w/minor regional variation; EF =40 -45%, diastolic dysfunction; LA moderate to severely dilated; mild to moderate pulmonary HTN -Stress test today: Intermediate probability; no compelling stress-induced ischemia; fixed apical thinning possibly due to small infarct; dilated LV; Hypokineses most mared at septum and apical segment of inferior wall -D/W Dr. Napoles recommended off coumadin due to his anemia and history of GI bleed. Stress test did not look different than his 2017 stress test. Ok to go home with Follow up with Dr. 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) (4) Afib Status: Acute Code(s): I48.91 - UNSPECIFIED ATRIAL FIBRILLATION SNOMED Code( s): 39963207 Comment: - Patient previously treated with coumadin off anticoagulation given his GI bleed history - Continue Amiodarone (5) Bipolar 1 disorder with moderate bari Status: Acute Comment: -Continue Depakote (6) Systolic heart failure Status: Acute Code(s): I50.20 - UNSPECIFIED SYSTOLIC (CONGESTIVE) HEART FAILURE SNOMED Code(s): 753695059 Comment: - chronic systolic CHF exacerbation -2D echo (06/26/17): Global hypokinesis of LV w/minor regional variation; EF =40 -45%, diastolic dysfunction; LA moderate to severely dilated; mild to moderate pulmonary HTN -Stress test today: Intermediate probability; no compelling stress-induced ischemia; fixed apical thinning possibly due to small infarct; dilated LV; Hypokineses most mared at septum and apical segment of inferior wall -D/W Dr. Napoles recommended off coumadin due to his anemia and history of GI bleed. Stress test did not look different than his 2017 stress test. Ok to go home with Follow up with Dr. 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
--- NOTE | 2018-06-28 23:46 | DS ---
CC: Dr. Meehan; Dr. David Putnam; Dr. Bagley, [employer], [place] * DISCHARGE SUMMARY: DATE OF ADMISSION: DATE OF DISCHARGE: HOSPITAL COURSE: The patient presented on 06/25/18 for shortness of breath on exertion, was found to be in rapid AFib with slightly elevated troponin, elevated BNP. The patient was admitted to the Medicine Service and he underwent CT angiogram, which ruled out PE. Cardiology consultation was obtained and and his AFib was treated with the Cardizem bolus and started on ACS rule out protocol. He was maintained on his home medication of amiodarone 200 mg daily. The patient was maintained in tele and he had serial cardiac enzymes and his troponin was positive, peaked at 0.75 and was down to 0.59 with rate control. His Coumadin was maintained off since it has been discontinued since May secondary to history of GI bleed. Nonetheless, he was placed on aspirin 81 mg daily given his positive troponin. Also, he underwent stress test nuclear while in-house given his positive troponin and the dyspnea and his stress test did shows EF 40% to 45%. There was no compelling evidence of stress -induced ischemia. There was hypokinesis in the septum and apical segment and Dr. Napoles, Cardiology was consulted who review the stress test and did not see any changes from his stress test when compared to 2017. 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 Bagley and to keep the patient off anticoagulation with history of GI bleed. Therefore, the patient was maintained on his current regimen as per home with the exception of adding aspirin 81 mg daily and he will be as well maintained on his pantoprazole 40 mg b.i.d. Therefore, the patient was seen and evaluated today and he was deemed stable for discharge. DISCHARGE MEDICATIONS: 1. Continue amiodarone 200 mg daily. 2. Depakote 150 mg daily. 3. Metoprolol 50 daily. 4. Olanzapine 5 mg at bedtime. 5. Pantoprazole 40 mg b.i.d. 6. Ramipril 5 mg daily. The patient to remain off the warfarin. 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 Bagley within 1 to 2 weeks. The patient to call and reschedule his appointment with [facility]EN[facility], Dr. Meehan in 1 to 2 weeks. Take all medications as prescribed. If he developed any sign of GI bleed, of worsening dyspnea, or shortness of breath to seek immediate medical attention. [id number]/[facility] #: [id number] MTDD
== END 2018-06-28 15:05 | disposition home or self-care (01) | DRG 308 ==
LOC: ED 14:04 → MEDTELE 17:01 → OBSVTOIN 06-26 15:59
PROVIDERS: ADMIT Student in an Organized Health Care Education/Training Program; ATTEND Internal Medicine
DX: I48.0 Paroxysmal atrial fibrillation (principal); I50.23 Acute on chronic systolic (congestive) heart failure; Q87.40 Marfan syndrome, unspecified; I25.5 Ischemic cardiomyopathy; F31.9 Bipolar disorder, unspecified; F90.9 Attention-deficit hyperactivity disorder, unspecified type; G89.29 Other chronic pain; I25.10 Atherosclerotic heart disease of native coronary artery without angina pectoris; I11.0 Hypertensive heart disease with heart failure; D64.9 Anemia, unspecified; N19 Unspecified kidney failure; R74.8 Abnormal levels of other serum enzymes; Z79.1 Long term (current) use of non-steroidal anti-inflammatories (NSAID); Z79.899 Other long term (current) drug therapy; Z82.49 Family history of ischemic heart disease and other diseases of the circulatory system; Z80.0 Family history of malignant neoplasm of digestive organs; Z87.891 Personal history of nicotine dependence
CPT/HCPCS: 36415; 71045; 71275; 78452; 80048; 80053; 80164; 81003; 81015; 82550; 82553; 82803; 83605; 83735; 83880; 84100; 84443; 84484; 85025; 85730; 87040; 87086; 93005; 93017; 93306; 99285; A9270-GY; A9502; G0378; J1644; J2785; Q9967

== ENCOUNTER 2018-11-01 22:15 | Emergency (ER) | payer MEDICARE, MEDICAID ==
[2018-11-01] MEDS ORDERED: Amoxicillin/Clavulanate TAB* 875 MG PO ONE (23:35)
--- NOTE | 2018-11-01 23:35 | ED ---
Throat Pain/Nasal Congestion - HPI Summary HPI Summary: Patient complains of right-sided facial swelling and possible abscess tooth. States history of multiple dental caries. Tooth pain 1 week, worse today. Facial swelling started today. Denies purulent discharge, pain with eating, headache, ear pain, fever, cough, sore throat, CP, SOB, N/V/D, abdominal pain, change in urine, change in BM. - History of Current Complaint Chief Complaint: EDDentalPain Time Seen by Provider: 11/01/18 23:27 Hx Obtained From: Patient Onset/Duration: Gradual Onset, Lasting Days Severity: Moderate Associated Signs And Symptoms: Positive: Negative Cough: None - Allergies/Home Medications Allergies/Adverse Reactions: Allergies Allergy/AdvReac Type Severity Reaction Status Date / Time No Known Allergies Allergy Verified 11/01/18 22:25 PMH/Surg Hx/FS Hx/Imm Hx Endocrine/Hematology History: Denies: Hx Diabetes Cardiovascular History: Reports: Hx Atrial Fibrillation, Hx Congenital Heart Disease - murmur, Hx Congestive Heart Failure, Hx Coronary Artery Disease - Stent x2 2007, Hx Hypercholesterolemia, Hx Hypertension, Other Cardiovascular Problems/Disorders - cardiomyopathy. Marfan's syndrome Denies: Hx Angina - denies, Hx Myocardial Infarction, Hx Pacemaker/ICD, Hx Peripheral Vascular Disease, Hx Valvular Heart Disease Respiratory History: Reports: Hx Pulmonary Embolism - possible, Other Respiratory Problems/Disorders - SOB D/T WEAKNESS Denies: Hx Asthma, Hx Chronic Obstructive Pulmonary Disease (COPD), Hx Pneumonia GI History: Reports: Hx Hiatal Hernia, Hx Ulcer, Other GI Disorders - abdominal hernia History: Denies: Hx Benign Prostatic Hyperplasia - maybe, Hx Dialysis, Hx Renal Disease Musculoskeletal History: Reports: Hx Arthritis, Hx Back Problems - Chronic Neck Pain/Marfans Syndrome, Other Musculoskeletal History - Marfan's Syndrome Sensory History: Reports: Hx Macular Degeneration - lense implants x2, Hx Vision Problem - Pt states he has "blurry vision" Denies: Hx Contacts or Glasses, Hx Hearing Aid Opthamlomology History: Reports: Hx Macular Degeneration - lense implants x2, Hx Vision Problem - Pt states he has "blurry vision" Denies: Hx Contacts or Glasses Neurological History: Reports: Hx Headaches, Hx Nerve Disease, Other Neuro Impairments/Disorders - MARFAN'S SYNDROME Denies: Hx Dementia, Hx Seizures Psychiatric History: Reports: Hx Anxiety, Hx Attention Deficit Hyperactivity Disorder, Hx Depression, Hx Panic Disorder - agorophobia, Hx Inpatient Treatment , Hx Community Mental Health Tx, Hx Bipolar Disorder, Hx Substance Abuse, Other Psychiatric Issues/Disorders Denies: Hx Eating Disorder, Hx of Violent Episodes Against Others - Surgical History Surgery Procedure, Year, and Place: left knee surgery - DEEP CUT - STITCHES , left wrist , abdominal hernia x2. Watchman procedure 2017 - MR CONDITIONAL - UP TO 3T, SPATIAL GRADIENT FIELD -2500 GAUSS/cm OR LESS, MAX CHELE -LIMITED 2.0W/ kg FOR 15 MINS, NORMAL MODE - MRI. CSP - SCRAPPING/NO HARDWARE. STENTS X2 2007. CARDIAC ABLATION Hx Anesthesia Reactions: No - Immunization History Date of Tetanus Vaccine: utd Date of Influenza Vaccine: utd Infectious Disease History: No Infectious Disease History: Reports: Hx Shingles Denies: Hx Clostridium Difficile, Hx Hepatitis, Hx Human Immunodeficiency Virus (HIV), Hx of Known/Suspected MRSA, Hx Tuberculosis, History Other Infectious Disease, Traveled Outside the [place] in Last 30 Days - Family History Known Family History: Positive: Cardiac Disease - Social History Alcohol Use: None Alcohol Amount: 2x month Hx Substance Use: No Substance Use Type: Reports: None Substance Use Comment - Amount & Last Used: Pt states that he does use recreational substances Hx Tobacco Use: Yes Smoking Status (MU): Former Smoker Type: Cigarettes Amount Used/How Often: 5-7/day Length of Time of Smoking/Using Tobacco: 16 years total Have You Smoked in the Last Year: No Review of Systems Constitutional: Negative Eyes: Negative Positive: Dental Pain Cardiovascular: Negative Respiratory: Negative Gastrointestinal: Negative Genitourinary: Negative Musculoskeletal: Negative Skin: Negative Neurological: Negative Psychological: Normal All Other Systems Reviewed And Are Negative: Yes Physical Exam - Summary Physical Exam Summary: Multiple dental caries. No intraoral apical abscess or swelling noted. Facial swelling lower right jaw. No apical abscess or fluctuance noted. Full range of motion of jaw. ENT exam unremarkable. Triage Information Reviewed: Yes Vital Signs On Initial Exam: Initial Vitals Temp Pulse Resp BP Pulse Ox 98.4 F 62 18 159/102 95 11/01/18 22:23 11/01/18 22:23 11/01/18 22:23 11/01/18 22:23 11/01/18 22:23 Vital Signs Reviewed: Yes Appearance: Positive: Well-Appearing Skin: Positive: Warm Head/Face: Positive: Normal Head/Face Inspection Eyes: Positive: Normal ENT: Positive: Normal ENT inspection Neck: Positive: Supple Respiratory/Lung Sounds: Positive: Clear to Auscultation Cardiovascular: Positive: Normal Abdomen Description: Positive: Nontender Musculoskeletal: Positive: Normal Neurological: Positive: Normal Psychiatric: Positive: Normal AVPU Assessment: Alert - [place] Coma Scale Best Eye Response: 4 - Spontaneous Best Motor Response: 6 - Obeys Commands Best Verbal Response: 5 - Oriented Coma Scale Total: 15 Diagnostics - Vital Signs Vital Signs Temp Pulse Resp BP Pulse Ox 11/01/18 22:23 98.4 F 62 18 159/102 95 - Laboratory Lab Statement: Any lab studies that have been ordered have been reviewed, and results considered in the medical decision making process. EENT Course/Dx - Course Course Of Treatment: Patient complains of right-sided facial swelling and possible abscess tooth. States history of multiple dental caries. Tooth pain 1 week, worse today. Facial swelling started today. Denies purulent discharge , pain with eating, headache, ear pain, fever, cough, sore throat, CP, SOB, N/V/ D, abdominal pain, change in urine, change in BM. Physical exam:Multiple dental caries. No intraoral apical abscess or swelling noted. Facial swelling lower right jaw. No apical abscess or fluctuance noted. Full range of motion of jaw. ENT exam unremarkable. Vital signs within normal limits. Rx for Augmentin follow-up with dentist. - Diagnoses Provider Diagnoses: Facial swelling, Cellulitis Discharge - Sign-Out/Discharge Documenting (check all that apply): Patient Departure Patient Received Moderate/Deep Sedation with Procedure: No - Discharge Plan Condition: Stable Disposition: HOME Prescriptions: Amoxicillin/Clavulanate TAB* [Augmentin TAB 875*] 875 mg PO BID #20 tab Patient Education Materials: Cellulitis (ED) Referrals: David Putnam MD [Primary Care Provider] - Additional Instructions: Follow-up with your dentist as soon as possible. Take antibiotics as directed. Return to the ED for any new or worsening symptoms. - Billing Disposition and Condition Condition: STABLE Disposition: Home
[2018-11-02 00:05] VITALS: BP 137/85
== END 2018-11-02 00:03 | disposition home or self-care (01) ==
LOC: ED 22:15
DX: R22.0 Localized swelling, mass and lump, head (principal); L03.90 Cellulitis, unspecified; I11.0 Hypertensive heart disease with heart failure; I48.91 Unspecified atrial fibrillation; I50.9 Heart failure, unspecified; I25.10 Atherosclerotic heart disease of native coronary artery without angina pectoris; E78.00 Pure hypercholesterolemia, unspecified; Q87.40 Marfan syndrome, unspecified; K44.9 Diaphragmatic hernia without obstruction or gangrene; K46.9 Unspecified abdominal hernia without obstruction or gangrene; M19.90 Unspecified osteoarthritis, unspecified site; H35.30 Unspecified macular degeneration; F41.9 Anxiety disorder, unspecified; F90.9 Attention-deficit hyperactivity disorder, unspecified type; F32.9 Major depressive disorder, single episode, unspecified; Z95.5 Presence of coronary angioplasty implant and graft; Z86.711 Personal history of pulmonary embolism; Z87.891 Personal history of nicotine dependence
CPT/HCPCS: 99282; A9270-GY

== ENCOUNTER 2019-01-02 21:48 | Emergency (ER) | payer MEDICARE, MEDICAID ==
--- OUTSIDE RECORDS SUMMARY | 2019-01-02 22:29 | XMS REPORT | Continuity of Care Document ---
:1950 External Reference #:[id number] Author Name Geoff Amalia Care Team Providers Name Role Phone David Putnam III, MD Primary Care Physician Unavailable Payers Date Identification Numbers Payment Provider Subscriber Policy Number: [id number] Medicare Mo Farah PayID: [id number] [address] [place] [address] Policy Number: [id number] Medicaid Mo Farah PayID: [id number] [address] [place] [address] Problems Active Problems Provider Date Cervical spondylosis with myelopathy Kishor Finn M.D. Onset: 11/01/2015 Convalescence after surgery Kishor Finn M.D. Onset: 12/11/2015 Neck pain Kishor Finn M.D. Onset: 02/10/2016 Atrial fibrillation Jame Chiu M.D. Onset: 04/16/2018 Acute systolic heart failure Jame Chiu M.D. Onset: 04/16/2018 Bipolar disorder Jame Chiu M.D. Onset: 04/16/2018 Chronic ischemic heart disease Jame Chiu M.D. Onset: 04/16/2018 Acute respiratory failure with hypoxia Flakito Lubin MD Onset: 04/20/2018 Family History Date Family Member(s) Observation Comments General Heart Disease General Colon Cancer Social History Type Date Description Comments Sex Unknown Marital Status Lives With Occupation Retired ETOH Use Rarely consumes alcohol Tobacco Use Start: Unknown End: Patient is a former Quit 2001; smoked Unknown smoker for 15 years Recreational Drug Use Denies Drug Use Smoking Status Reviewed: 12/30/18 Patient is a former Quit 2001; smoked smoker for 15 years Exercise Type/Frequency Exercises sporadically limited due to ankle pain Allergies, Adverse Reactions, Alerts Description No Known Drug Allergies Medications Active Medications SIG Qnty Indications Ordering Date Provider Lipitor Take 1 tab daily 30tabs E78.5 Flakito Lubin MD 12/30/2018 20mg Tablets Blood Pressure bp machine for 1units I10 David Gonzales 04/26/2018 Monitor home bp monitoring Juan Putnam Digital/Manual Inflate Misc Custom Shoe For R Large shoe for r M79.671 David Gonzales 01/26/2017 Foot foot to accomodate Juan Putnam brace Metoprolol Succinate one tab daily Unknown ER 50mg Tablets ER 24HR Ramipril 1 by mouth every Unknown 5mg Capsules day Amiodarone HCL once daily Kevyn, 200mg MD Wale Tablets Amlodipine Besylate 1 by mouth every Unknown 5mg day Tablets Olanzapine 1 po at bedtime Unknown 5mg Tablets Divalproex Sodium 3 tabs daily in Unknown 500mg the morning Tablets DR Acetaminophen 2 tablets by mouth Unknown 325mg every 6 hours as Tablets needed for pain/fever History Medications Keflex 1 by mouth twice 14caps R31.9 David Gonzales 05/21/2017 - 500mg Capsules a day Juan Putnam 06/23/2017 Sulfamethoxazole/Trime 1 by mouth twice 20tabs R35.0 David Gonzales 01/26/2017 - thoprim DS a day Juan Putnam 02/01/2017 800-160mg Tablets Ibuprofen 1 by mouth three 90tabs F31.9 Jame Mobley, 08/21/2016 - 600mg Tablets times a day as M.DMercy 06/21/2018 needed Hydrocodone-Acetaminop cancel previous 60tabs M54.2 David Gonzales 03/17/2016 - hen refill from Juan Putnam 06/23/2017 5-325mg Tablets 04/13/17 Hydrocodone-Acetaminop 1 by mouth every 90tabs M54.2 Kishor Finn, 2015 - hen 6 hours as M.D. 03/17/2016 10-325mg Tablets needed pain Tramadol HCL 1 by mouth every 90tabs Z48.89 Kishor Finn, 12/30/2015 - 50mg Tablets 6 hours as M.D. 01/25/2017 needed pain Hydrocodone-Acetaminop 1 by mouth every 120tabs Kishor Finn, 2015 - hen 6 hours as M.D. 02/10/2016 10-325mg Tablets needed pain Hydrocodone-Acetaminop 1-2 by mouth 60tabs Z48.89 Kishor Goldmanf, 2015 - hen every 6 hours as M.D. 12/14/2015 5-325mg Tablets needed pain [place] 1-2 by mouth 90tabs Kishor Finn, 11/10/2015 - 5-325mg Tablets every 6 hours as M.D. 12/30/2015 needed pain Levofloxacin 1 po qd 14tabs Jacinto Bermudez, 03/21/2013 - 500mg M.D. 12/17/2016 Tablets Levofloxacin 1 tab by mouth 14tabs Jacinto Bermudez, 03/21/2013 - 750mg every 24 hours M.D. 03/21/2013 Tablets Pantoprazole Sodium 1 by mouth twice Unknown - 40mg a day 12/29/[address] Warfarin Sodium Unknown - 5mg 06/21/2018 Tablets Iron Slow Release take one Unknown - capsule/tablet 06/21/2018 143(45Fe) mg Tablets daily by mouth ER Plavix 1 by mouth every Unknown - 75mg Tablets day 05/20/2017 Cefpodoxime Proxetil 1 by mouth twice Unknown - a day 05/20/2017 200mg Tablets Lorazepam 1 at bedtime prn Unknown - 1mg Tablets 06/21/2018 Modafinil 1 by mouth 2 Unknown - 200mg Tablets times a day 06/21/2018 Warfarin Sodium Tu, , Unknown - 3mg Sat, Sun 02/22/2017 Tablets Warfarin Sodium Wed, Wed, Unknown - 2mg Wednesday. 02/22/2017 Tablets Seroquel take 1 tablet by Unknown - 50mg Tablets mouth at bedtime 02/22/2017 Hydrocodone-Acetaminop 1 by mouth every Unknown - hen 4-6 hours prn. 12/11/2015 5-325mg Tablets Depakote ER 1 by mouth every Unknown - 500mg Tablets night at bedtime 06/21/2018 ER 24HR Spironolactone 1 by mouth every Unknown - 25mg day 06/20/2018 Tablets Aspirin Low Strength 1 by mouth every Unknown - 81mg day 06/21/2018 Chewtabs Xarelto 1 by mouth every Unknown - 20mg Tablets day 01/25/2017 Multaq 1 by mouth twice Unknown - 400mg Tablets a day 01/25/2017 Digoxin 1 by mouth every Unknown - 125mcg Tablets day 01/25/2017 Doxycycline Hyclate one tablet twice Unknown - 100mg daily 12/17/2016 Capsules Cefuroxime Axetil 1 by mouth twice Unknown - 500mg a day 12/17/2016 Tablets Immunizations CPT Code Status Date Vaccine Lot # [id number] Given 01/19/2018 Pneumococcal Conjugate Vaccine 13 Valent For [id number] Intramuscular Use Vital Signs Date Vital Result Comment 12/30/2018 10:04am Height 73 inches 6'1" Weight 230.12 lb Heart Rate 77 /min BP Systolic 135 mmHg BP Diastolic 88 mmHg Body Temperature 97.9 F O2 % BldC Oximetry 96 % BMI (Body Mass Index) 30.4 kg/m2 08/15/2018 4:29pm Height 73 inches 6'1" Weight 254.00 lb Heart Rate 82 /min BP Systolic Sitting 159 mmHg R auto BP Diastolic Sitting 104 mmHg R auto BP Systolic Standing 149 mmHg L auto BP Diastolic Standing 95 mmHg L auto Body Temperature 97.2 F O2 % BldC Oximetry 97 % BMI (Body Mass Index) 33.5 kg/m2 06/21/2018 4:56pm Height 73 inches 6'1" Weight [...] Facility Test Result H/L Range Note Order 12/30/2018 [facility] EKG <pending> Ua Routine 12/30/2018 [facility] Ua Specific Leonardo <pending> Ua PH <pending> Ua Color <pending> Ua Appera <pending> Ua WBC <pending> Ua Protein <pending> Ua Glucose <pending> Ua Ketones <pending> Ua Bilirubin <pending> Ua Urobilinogen <pending> Ua Nitrite <pending> Ua Occult Blood <pending> Laboratory test finding 12/30/2018 [facility] Magnesium <pending > [address] [place] [address] [phone] Urinalysis Profile 12/17/2018 [facility] Urine Color Yellow [address] [place] [address] [phone] Urine Appearance Turbid Urine Specific Leonardo 1.016 N 1.010-1.030 Urine pH 5.0 N 5-9 Urine Urobilinogen Negative Negative Urine Ketones Negative Negative Urine Protein 2+(100 mg/dL) Abnormal Negative Urine Leukocytes 3+ Abnormal Negative Urine Blood 1+ Abnormal Negative Urine Nitrite Positive Abnormal Negative Urine Bilirubin Negative Negative Urine Glucose 3+(>=500 mg/dL) Abnormal Negative Urine White Blood Cell 3+(>20/hpf) Abnormal Absent Urine Red Blood Cell 3+(>10/hpf) Abnormal Absent Urine Bacteria Absent Absent Urine Culture And 12/17/2018 [facility] Urine Culture SEE RESULT [address] [place] [address] [phone] Rapid Influenza A 06/25/2018 [facility] Influenza A NEGATIVE Negative 2 & B Molecular [address] Molecular [place], [place] [id number] [phone] Influenza B Molecular NEGATIVE Negative Urine Culture And 06/25/2018 [facility] Urine Culture SEE RESULT [address] [place] [address] [phone] Urinalysis Profile 06/25/2018 [facility] Urine Color Yellow [address] [place], [place] [id number] [phone] Urine Appearance Cloudy Urine Specific Leonardo 1.020 N 1.010-1.030 Urine pH 6.0 N 5-9 Urine Urobilinogen Negative Negative Urine Ketones Negative Negative Urine Protein 1+(30 mg/dL) Abnormal Negative Urine Leukocytes Negative Negative Urine Blood Negative Negative Urine Nitrite Negative Negative Urine Bilirubin Negative Negative Urine Glucose Negative Negative Urine White Blood Cell Trace(0-5/hpf) Absent Urine Red Blood Cell Absent Absent Urine Bacteria Absent Absent Urine Squamous Epithelial Cell Present Abnormal Absent Laboratory test 06/25/2018 [facility] TSH (Thyroid 1.75 mcIU/mL N 0.34-5.[address] Stim Horm) [place], [place] [id number] [phone] Laboratory test 06/25/2018 [facility] Rapid SEE RESULT [address] Influ[place] [address] Antigen [phone] CBC Auto Diff 06/25/2018 [facility] White Blood 6.2 10^3/uL N 3.5-10.[address] Count [place], [place] [id number] [phone] Red Blood Count 3.97 10^6/uL Low 4.00-5.40 Hemoglobin 11.0 g/dL Low 14.0-18.0 Hematocrit 34 % Low 42-52 Mean Corpuscular Volume 86 fL N 80-94 Mean Corpuscular Hemoglobin 28 pg N 27-31 Mean Corpuscular HGB Conc 32 g/dL N 31-36 Red Cell Distribution Width 16 % High 10.5-15 Platelet Count 412 10^3/uL N 150-450 Mean Platelet Volume 7.2 fL Low 7.4-10.4 Abs Neutrophils 3.9 10^3/uL N 1.5-7.7 Abs Lymphocytes 1.5 10^3/uL N 1.0-4.8 Abs Monocytes 0.6 10^3/uL N 0-0.8 Abs Eosinophils 0.1 10^3/uL N 0-0.6 Abs Basophils 0 10^3/uL N 0-0.2 Abs Nucleated RBC 0 10^3/uL Granulocyte % 62.9 % Lymphocyte % 25.0 % Monocyte % 9.3 % Eosinophil % 2.1 % Basophil % 0.7 % Nucleated Red Blood Cells % 0 Laboratory test 06/25/2018 [facility] Lactic Acid 2.4 mmol/L High 0.5-2.0 5 finding [address] [place] [address] [phone] Partial Thrombo Time PTT 30.0 seconds N 26.0-36.3 B-Type Natriuretic Peptide BNP 274 pg/mL High <=100 Troponin-I (TnI) 0.03 ng/mL <0.04 6 Comp Metabolic Panel 06/25/2018 [facility] Sodium 139 mmol/L N 135-145 [address] [place] [address] [phone] Potassium 4.0 mmol/L N 3.5-5.0 Chloride 103 mmol/L N 101-111 Co2 Carbon Dioxide 28 mmol/L N 22-32 Anion Gap 8 mmol/L N 2-11 Glucose 121 mg/dL High 70-100 Blood Urea Nitrogen 22 mg/dL N 6-24 Creatinine 1.38 mg/dL High 0.67-1.17 BUN/Creatinine Ratio 15.9 N 8-20 Calcium 9.4 mg/dL N 8.6-10.3 Total Protein 6.8 g/dL N 6.4-8.9 Albumin 4.1 g/dL N 3.2-5.2 Globulin 2.7 g/dL N 2-4 Albumin/Globulin Ratio 1.5 N 1-3 Total Bilirubin 0.40 mg/dL N 0.2-1.0 Alkaline Phosphatase 73 U/L N 34-104 Alt 8 U/L N 7-52 Ast 12 U/L Low 13-39 Egfr Non- 51.6 >60 Egfr 62.4 >60 7 Laboratory test 06/25/2018 [facility] Magnesium 2.0 mg/dL N 1.9-2.7 finding [address] [place] [address] [phone] Creatine Kinase(CK) 80 U/L N 10-223 CKMB 06/25/2018 [facility] CKMB ng/mL 2.8 ng/mL N 0.6-6.[address] [place] [address] [phone] Laboratory test 05/22/2018 [facility] Partial 41.2 High 26.0- 36.[address] [place] [address] PTT [phone] CBC Auto Diff 05/22/2018 [facility] White Blood 7.0 10^3/uL N 3.5-10.[address] [place] [address] [phone] Red Blood Count 2.16 10^6/uL Low 4.00-5.40 [...] Blood Cells % 0.7 Laboratory test 05/22/2018 [facility] B-Type 51 pg/mL <=[address] [place] [address] Peptide BNP [phone] Inr/Protime 05/22/2018 [facility] Inr 2.22 High 0.77-1.[address] [place], [place] [id number] [phone] Comp Metabolic 05/22/2018 [facility] Sodium 139 N 135-[address] mmol/[place] [address] [phone] Potassium 4.9 mmol/L N 3.5-5.0 Chloride 105 [...] Egfr Non- 38.2 >60 Egfr 46.2 >60 8 Laboratory test 05/22/2018 [facility] Troponin-I 0.02 ng/mL < 0.[address] (TnI) [place] [address] [phone] CKMB 05/22/2018 [facility] CKMB ng/mL 6.2 ng/mL N 0.6-6.3 [place] [address] [phone] Laboratory test 05/22/2018 [facility] Valproic Acid 41.0 g/mL Low 50-[address] (Depakene) [place] [address] [phone] Type & Screen 05/22/2018 [facility] Patient Blood [place] [address] [phone] Antibody Screen NEGATIVE Laboratory test 05/22/2018 [facility] Packed Cells SEE RESULTS [address] BELO <[place] [address] NOTE> [phone] Blood Culture SEE RESULT BELOW 11 Inr/Protime 04/28/2018 [facility] Inr 2.36 High 0.77-1.02 [place] [address] [phone] Protime W/ Inr 04/26/2018 [facility] Prothrombin Time 35.6 Inr 3.0 Laboratory 04/16/2018 [facility] Lactic Acid 1.1 N 0.5-2.0 12 test finding [address] mmol/[place] [address] [phone] Inr/Protime 04/16/2018 [facility] Inr 0.92 N 0.77-1.[address] [place] [address] [phone] Laboratory 04/16/2018 [facility] B-Type 648 pg/mL High <=100 test finding [address] [place] [address] Peptide BNP [phone] CBC Auto Diff 04/16/2018 [facility] White Blood 8.0 N 3.5- 10.[address] Count 10^3/[place] [address] [phone] Red Blood Count 4.00 10^6/uL N 4.00-5.40 [...] Cells % 0.1 Comp Metabolic Panel 04/16/2018 [facility] Sodium 139 mmol/L N 135-[address] [place] [address] [phone] Potassium 4.2 mmol/L N 3.5-5.0 Chloride 106 [...] Egfr Non- 87.8 >60 Egfr 106.2 >60 13 Laboratory test 04/16/2018 [facility] Troponin-I 0.07 ng/mL High <0.[address] (TnI) [place] [address] [phone] Thyroxine 6.00 ?g/dL Low 6.09-12.23 TSH (Thyroid Stim Horm) 2.42 mcIU/mL N 0.34-5.60 CBC Auto Diff 01/05/2018 [facility] White Blood 6.9 10^3/uL N 3.5-10.[address] [place] [address] [phone] Red Blood Count 3.68 10^6/uL Low 4.00-5.40 [...] Red Blood Cells % 0.1 Laboratory test 01/05/2018 [facility] TSH (Thyroid 1.98 N 0.34 -5.[address] Stim Horm) mcIU/[place] [address] [phone] Laboratory test 01/05/2018 [facility] Valproic Acid 44.0 g/mL Low 50-[address] (Depakene) [place] [address] [phone] Urinalysis 01/05/2018 [facility] Urine Color Yellow Profile [address] [place] [address] [phone] Urine Appearance Clear Urine Specific Leonardo 1.021 N 1.010-1.030 Urine pH 5.0 N 5-9 Urine Urobilinogen Negative Negative Urine Ketones Negative Negative Urine Protein Negative Negative Urine Leukocytes Negative Negative Urine Blood Negative Negative Urine Nitrite Negative Negative Urine Bilirubin Negative Negative Urine Glucose Negative Negative Urine 01/05/2018 [facility] Amphetamine Ur Presumptive Abnormal None [address] Screen Posi <SEE Detect ED & [place] [address] NOTE> Clinic [phone] Barbiturates Urine Screen None Detected None Detect Benzodiazepine Urine Screen None Detected None Detect Urine Cannabinoids Screen Presumptive Posi <SEE NOTE> Abnormal None Detect 16 Urine Cocaine Screen None Detected None Detect Urine Opiates Screen None Detected None Detect Urine Phencyclidine Screen None Detected None Detect 17 Laboratory test 01/05/2018 [facility] Acetaminophen < 15 g/mL [address] [place] [address] [phone] Alcohol < 10 mg/dL N <10 Salicylate < 2.50 mg/dL <30 Comp Metabolic Panel 01/05/2018 [facility] Sodium 140 mmol/L N 135-145 [address] [place] [address] [phone] Potassium 4.3 mmol/L N 3.5-5.0 Chloride 104 [...] Egfr Non- 41.4 >60 Egfr 50.1 >60 19 Urinalysis Profile 12/29/2017 [facility] Urine Color Yellow [address] [place] [address] [phone] Urine Appearance Clear Urine Specific Leonardo 1.026 N 1.010-1.030 Urine pH 5.0 N 5-9 Urine Urobilinogen Negative Negative Urine Ketones Negative Negative Urine Protein Negative Negative Urine Leukocytes Negative Negative Urine Blood Negative Negative Urine Nitrite Negative Negative Urine Bilirubin Negative Negative Urine Glucose Negative Negative CBC Auto Diff 12/29/2017 [facility] White Blood 9.5 10^3/uL N 3.5-10.[address] [place] [address] [phone] Red Blood Count 3.96 10^6/uL Low 4.00-5.40 [...] Blood Cells % 0.1 Comp Metabolic Panel 12/29/2017 [facility] Sodium 137 mmol/L N 135-[address] [place] [address] [phone] Potassium 4.3 mmol/L N 3.5-5.0 Chloride 99 [...] Egfr Non- 38.7 >60 Egfr 46.8 >60 20 Laboratory test 12/29/2017 [facility] TSH (Thyroid 1.08 mcIU/mL N 0.34-5.[address] Stim Horm) [place] [address] [phone] Acetaminophen < 15 g/mL 21 Alcohol < 10 mg/dL N <10 Salicylate 6.00 mg/dL <30 Urine 12/29/2017 [facility] Amphetamine Ur Presumptive Abnormal None 22 Drug SCR [address] Screen Posi <SEE Detect ED & [place] [address] NOTE> Clinic [phone] Barbiturates Urine Screen None Detected None Detect Benzodiazepine Urine Screen None Detected None Detect Urine Cannabinoids Screen Presumptive Posi <SEE NOTE> Abnormal None Detect 23 Urine Cocaine Screen None Detected None Detect Urine Opiates Screen None Detected None Detect Urine Phencyclidine Screen None Detected None Detect 24 Lipid Profile 12/29/2017 [facility] Triglycerides 45 mg/dL 25 (Trig/Chol/HDL) [address] [place] [address] [phone] Cholesterol 219 mg/dL 26 HDL Cholesterol 79.7 mg/dL 27 LDL Cholesterol 130 mg/dL 28 Laboratory test 12/29/2017 [facility] Valproic Acid 16.0 Low 50-[address] (Depakene) g/mL [place], [place] [id number] [phone] CBC Auto Diff 12/15/2017 [facility] White Blood 8.5 N 3.5- 10.[address] Count 10^3/[place] [address] [phone] Red Blood Count 3.92 10^6/uL Low 4.00-5.40 [...] Cells % 0.1 Comp Metabolic Panel 12/15/2017 [facility] Sodium 139 mmol/L N 135-[address] [place] [address] [phone] Potassium 3.7 mmol/L N 3.5-5.0 Chloride 102 [...] Egfr Non- 63.0 >60 Egfr 76.2 >60 29 Laboratory test 12/15/2017 [facility] Lactic Acid 0.8 mmol/L N 0.5-2.[address] [place] [address] [phone] Blood Culture SEE RESULT BELOW 31 CBC Auto Diff 11/23/2017 [facility] White Blood 8.7 10^3/uL N 3.5-10.[address] [place] [address] [phone] Red Blood Count 3.86 10^6/uL Low 4.00-5.40 [...] Cells % 0 Comp Metabolic Panel 11/23/2017 [facility] Sodium 140 mmol/L N 139-[address] [place] [address] [phone] Potassium 4.1 mmol/L N 3.5-5.0 Chloride 104 [...] Egfr Non- 59.4 >60 Egfr 76.4 >60 32 Laboratory test 11/23/2017 [facility] Acetaminophen < 15 g/mL [address] [place] [address] [phone] Alcohol < 10 mg/dL N <10 Salicylate < 2.50 mg/dL <30 TSH (Thyroid Stim Horm) 0.88 mcIU/mL N 0.34-5.60 Valproic Acid (Depakene) 90.0 g/mL N 50-100 Basic Metabolic Panel 10/23/2017 [facility] Sodium 140 mmol/L N 139-[address] [place] [address] [phone] Potassium 3.8 mmol/L N 3.5-5.0 Chloride 105 mmol/L N 101-111 Co2 Carbon Dioxide 28 mmol/L N 22-32 Anion Gap 7 mmol/L N 2-11 Glucose 78 mg/dL N 70-100 Blood Urea Nitrogen 36 mg/dL High 6-24 Creatinine 1.49 mg/dL High 0.67-1.17 BUN/Creatinine Ratio 24.2 High 8-20 Calcium 8.6 mg/dL N 8.6-10.3 Egfr Non- 47.2 >60 Egfr 60.7 >60 34 CBC Auto Diff 10/23/2017 [facility] White Blood 7.6 10^3/uL N 3.5-10.[address] [place] [address] [phone] Red Blood Count 4.01 10^6/uL N 4.0-5.4 [...] Blood Cells % 0.1 Comp Metabolic Panel 10/23/2017 [facility] Sodium 135 mmol/L Low 139-145 [address] [place] [address] [phone] Potassium 3.9 mmol/L N 3.5-5.0 Chloride 102 [...] Egfr Non- 42.5 >60 Egfr 54.7 >60 35 Laboratory test 10/23/2017 [facility] Valproic Acid 13.0 g/mL Low 50-[address] (Depakene) [place] [address] [phone] Acetaminophen < 15 g/mL 36 Alcohol < 10 mg/dL N <10 Salicylate < 2.50 mg/dL <30 TSH (Thyroid Stim Horm) 0.81 mcIU/mL N 0.34-5.60 Urinalysis Profile 10/23/2017 [facility] Urine Color Yellow [address] [place] [address] [phone] Urine Appearance Clear Urine Specific Leonardo 1.018 N 1.010-1.030 Urine pH 5.0 N 5-9 Urine Urobilinogen Positive Abnormal Negative Urine Ketones Trace Abnormal Negative Urine Protein Negative Negative Urine Leukocytes Negative Negative Urine Blood Negative Negative Urine Nitrite Negative Negative Urine Bilirubin Negative Negative Urine Glucose Negative Negative Urine Drug 10/23/2017 [facility] Amphetamine Ur None Detected None Detect SCR ED & [address] [place] [address] [phone] Barbiturates Urine Screen None Detected None Detect Benzodiazepine Urine Screen None Detected None Detect Urine Cannabinoids Screen Presumptive Posi <SEE NOTE> Abnormal None Detect 37 Urine Cocaine Screen None Detected None Detect Urine Opiates Screen None Detected None Detect Urine Phencyclidine Screen None Detected None Detect 38 Urine Culture And 05/21/2017 [facility] Urine Culture SEE RESULT 39, [address] [place] [address] [phone] Urinalysis Profile 05/21/2017 [facility] Urine Color Marlene [address] [place] [address] [phone] Urine Appearance Turbid Urine Specific Leonardo 1.024 N 1.010-1.030 Urine pH 5.0 N [...] Urine Renal Epithelial Cells Present Abnormal Absent Basic Metabolic Panel 05/21/2017 [facility] Sodium 138 mmol/L N 133-[address] [place] [address] [phone] Potassium 4.0 mmol/L N 3.5-5.0 Chloride 101 mmol/L N 101-111 Co2 Carbon Dioxide 30 mmol/L N 22-32 Anion Gap 7 mmol/L N 2-11 Glucose 102 mg/dL High 70-100 Blood Urea Nitrogen 20 mg/dL N 6-24 Creatinine 1.02 mg/dL N 0.67-1.17 BUN/Creatinine Ratio 19.6 N 8-20 Calcium 9.4 mg/dL N 8.6-10.3 Egfr Non- 73.3 >60 Egfr 94.3 >60 41 Laboratory test 05/21/2017 [facility] PSA Diagnostic 5.128 High 0-4.000 [address] ng/[place] [address] [phone] CBC Auto Diff 05/21/2017 [facility] White Blood 6.6 N 3.5- 10.[address] Count 10^3/[place] [address] [phone] Red Blood Count 4.32 10^6/uL N 4.0-5.4 [...] Red Blood Cells % 0.1 Urinalysis Profile 04/12/2017 [facility] Urine Color Marlene N [address] [place] [address] [phone] Urine Appearance Turbid N Urine Specific Leonardo 1.027 N 1.010-1.030 Urine pH 5.0 N 5-9 Urine Urobilinogen Negative N Negative Urine Ketones Trace Abnormal Negative Urine Protein Negative N Negative Urine Leukocytes Negative N Negative Urine Blood Negative N Negative * * Abnormal Negative 43 Urine Nitrite Negative N Negative Urine Bilirubin Negative N Negative Urine Glucose 1+(50 mg/dL) Abnormal Negative Urine Drug 04/12/2017 [facility] Amphetamine Ur None Detected N None Detect SCR ED & [address] [place] [address] [phone] Barbiturates Urine Screen None Detected N None Detect Benzodiazepine Urine Screen None Detected N None Detect Urine Cannabinoids Screen Presumptive Posi <SEE NOTE> Abnormal None Detect 44 Urine Cocaine Screen None Detected N None Detect Urine Opiates Screen None Detected N None Detect Urine Phencyclidine Screen None Detected N None Detect 45 Laboratory test 04/11/2017 [facility] Acetaminophen < 15 g/mL N [address] [place] [address] [phone] Alcohol < 10 mg/dL N <10 Salicylate < 2.50 mg/dL N <30 TSH (Thyroid Stim Horm) 0.78 mcIU/mL N 0.34-5.60 Valproic Acid (Depakene) 95.0 g/mL N 50-100 Comp Metabolic Panel 04/11/2017 [facility] Sodium 144 mmol/L N 133-[address] [place] [address] [phone] Potassium 4.1 mmol/L N 3.5-5.0 Chloride 107 [...] 51.3 N >60 Egfr 66.0 N >60 47 CBC Auto Diff 04/11/2017 [facility] White Blood 6.8 10^3/uL N 3.5-10.[address] [place] [address] [phone] Red Blood Count 3.98 10^6/uL Low 4.0-5.4 [...] Nucleated Red Blood Cells % 0 N Laboratory test 01/29/2017 [facility] B-Type 135 pg/mL High [address] [place] [address] Peptide BNP [phone] Inr/Protime 01/29/2017 [facility] Inr 2.64 High 0.[address] -1.1 [place] [address] 9 [phone] Laboratory test 01/29/2017 [facility] Partial Thrombo 36.9 seconds High 26.[address] Time PTT -36. [place] [address] 3 [phone] CBC Auto Diff 01/29/2017 [facility] White Blood 6.4 10^3/uL N 3.5- [address] Count 10.8 [place] [address] [phone] Red Blood Count 3.89 10^6/uL Low 4.0-5.4 [...] % 0 N Comp Metabolic Panel 01/29/2017 [facility] Sodium 134 mmol/L N 133-[address] [place] [address] [phone] Chloride 103 mmol/L N 101-111 Co2 Carbon [...] 65.1 N >60 Egfr 83.8 N >60 49 Potassium TNP mmol/L N 3.5-5.0 50 Anion Gap 5 mmol/L N 2-11 Ast TNP U/L N 13-39 51 Laboratory test 01/29/2017 [facility] Troponin-I (TnI) 0.03 ng/ mL N <0.[address] [place] [address] [phone] Magnesium TNP mg/dL N 1.9-2.7 52 Valproic Acid (Depakene) 33.0 g/mL Low 50-100 Urine Culture And 01/28/2017 [facility] Urine Culture SEE RESULT [address] [place] [address] [phone] Ua Routine 01/26/2017 [facility] Ua Specific 1.020 Leonardo Ua PH 5 Ua Color yellow Ua Appera cloudy Ua WBC 2 + Ua Protein 100 Ua Glucose Neg Ua Ketones Pos Ua Bilirubin Neg Ua Urobilinogen Neg Ua Nitrite Pos Ua Occult Blood xlg Inr/Protime 01/12/2017 [facility] Inr 2.62 High 0.89-1.[address] [place] [address] [phone] Urine Culture And 12/18/2016 [facility] Urine SEE RESULT [address] [address] [phone] Urinalysis 12/18/2016 [facility] Urine Color Yellow N Profile [address] [place] [address] [phone] Urine Appearance Cloudy N Urine Specific Leonardo 1.018 N 1.010-1.030 Urine pH 6.0 N [...] Urine Squamous Epithelial Cell Present Abnormal Absent Laboratory test 12/18/2016 [facility] PSA Screening 3.481 N 0- 4.[address] ng/[place] [address] [phone] Iron & Iron 12/18/2016 [facility] Iron 43 g/dL Low 50-212 Binding Capacity [address] [place] [address] [phone] Unsaturated Iron Binding 429 g/dL N Total Iron Binding Capacity 472 g/dL High 250-450 % Iron Saturation 9 % Low 15-55 Laboratory test 12/18/2016 [facility] Ferritin 34.1 ng/mL N 24 -[address] [place] [address] [phone] CBC Auto Diff 12/18/2016 [facility] White Blood 9.2 10^3/uL N 3.5-10.[address] [place] [address] [phone] Red Blood Count 3.83 10^6/uL Low 4.0-5.4 [...] Nucleated Red Blood Cells % 0.2 N Xray 08/21/2016 [facility] Ankle Right <pending> [address] 3+[place] [address] [phone] CBC No Diff 11/04/2015 [facility] White Blood 7.0 10^3/uL N 3.5-10.[address] [place] [address] [phone] Red Blood Count 4.93 10^6/uL N 4.0-5.4 [...] um3 N 7.4-10.4 Basic Metabolic Panel 11/04/2015 [facility] Sodium 137 mmol/L N 133-145 [address] [place] [address] [phone] Potassium 4.5 mmol/L N 3.5-5.0 Chloride 101 mmol/L N 101-111 Co2 Carbon Dioxide 30 mmol/L N 22-32 Anion Gap 6 mmol/L N 2-11 Glucose 94 mg/dL N 70-100 Blood Urea Nitrogen 25 mg/dL High 6-24 Creatinine 1.28 mg/dL High 0.67-1.17 BUN/Creatinine Ratio 19.5 N 8-20 Calcium 10.3 mg/dL N 8.6-10.3 Egfr Non- 56.6 N >60 Egfr 72.8 N >60 56 Laboratory test 10/31/2015 [facility] Creatine 66 U/L N 10- 223 finding 101 [facility] Kinase(CK) [place] [address] [phone] Connective Tissue 10/31/2015 [facility] Anti-Nuclear 0.5 U N [address] [place] [address] [place] [address] [phone] Cyclic Citrullinated Peptide <15.6 U N 58 Interpretation See Comment N 59 Laboratory test 10/31/2015 [facility] TSH (Thyroid 1.47 ?IU/mL N 0.34-5.[address] [place] [address] Stim Horm) [place] [address] [phone] Free T4 (Free Thyroxine) 0.93 ng/dL N 0.61-1.12 Vitamin B12 270 pg/mL N 180-914 60 Folic Acid (Folate) 16.85 ng/mL N >3.99 Methylmalonic Acid Mma 1.68 nmol/mL Abnormal <=0.40 61 1 SEE RESULT BELOW Name: MO FARAH : [address]: Shayy Odonnell Acct: [id number] Unit: [id number] AGE: 68 Location: ED Re12/17/18 SEX: M Status: DEP ER SPEC: [id number] MYRANDA: 12/17/18 [facility] DR: Sari ACEVEDO REQ: [id number] RECD: 12/17/18 STATUS: JM RUTLEDGE DR: David Putnam III, MD _ SOURCE: URINE SPDESC: ORDERED: Urine Culture Procedure Result Reported Site Urine Culture Final 12/20/18- 904 ML Organism 1 ESCHERICHIA COLI [place] Count >100,000 (Many) CFU/ML 1. ESCHERICHIA COLI M.I.C. RX --------- ------ Ampicillin 4 S Cefazolin <=4 S Cefepime <=1 S Ceftriaxone <=1 S Ciprofloxacin <=0.25 S Gentamicin <=1 S Levofloxacin <=0.12 S Meropenem <=0.25 S Nitrofurantoin <=16 S Tetracycline <=1 S Pipercillin/Tazobactam <=4 S Trimethoprim/Sulfamethoxazole <=20 S Amoxicillin/Clavulanic Acid 4 S Aztreonam <=1 S Contact the Microbiology Department for any additional antibiotic reporting. * ML - Main Lab . END OF REPORT DEPARTMENT OF PATHOLOGY, [address] [place] [address] Enrique Amezcua M.D. Director [facility] # [id number] 2 National Service Officer: [id number] 3 SEE RESULT BELOW Name: MO FARAH : [address]: Jean Marie Barcenas MD Acct: [id number] Unit: [id number] AGE: 67 Location: [place] [address] Re06/26/18 SEX: M Status: ADM IN SPEC: [id number] MYRANDA: 06/25/18 [facility] DR: David Angeles MD REQ: [id number] RECD: 06/25/18 STATUS: JM RUTLEDGE DR: David Putnam III, MD _ SOURCE: URINE SPDESC: ORDERED: Urine Culture Procedure Result Reported Site Urine Culture Final 06/27/18 0818 ML No Growth (<1,000 CFU/mL) * ML - Main Lab . END OF REPORT DEPARTMENT OF PATHOLOGY, [address] [place] [address] Enrique Amezcua M.D. Director [facility] # [id number] 4 SEE RESULT BELOW Name: MO FARAH : [address]: David Angeles MD Acct: [id number] Unit: [id number] AGE: 67 Location: ED Re06/25/18 SEX: M Status: REG ER SPEC: [id number] MYRANDA: 06/25/18 [facility] DR: Ely Dodd NP REQ: [id number] RECD: 06/25/18 STATUS: JM RUTLEDGE DR: David Putnam III, MD _ SOURCE: NASAL SPDESC: ORDERED: Flu A B Request Procedure Result Reported Site Rapid Influenza A B Request Final 06/25/18- 1700 ML Specimen received for Influenza A/B Molecular testing * ML - Main Lab . END OF REPORT DEPARTMENT OF PATHOLOGY, [address] [place] [address] Enrique Amezcua M.D. Director [facility] # [id number] 5 Critical Result LACT:2.4 Called to [id number] at: 15:36:20 by:[id number] Read back by:MADDIE GRIFFIN Severe Sepsis and Septic Shock Management Bundle Measure requires all lactic acids initially measuring >2.0 mmol/L be repeated. 6 Troponin-I testing on Plasma Separator Tubes (PST) has a known false positive rate of 0.20-0.40%. All positive troponins reflex immediate secondary confirmatory testing. 7 Because ethnic data is not always readily [...] 15-29 5 Kidney failure <15 (or dialysis) 8 Because ethnic data is not always [...] 5 Kidney failure <15 (or dialysis) 9 Troponin-I testing on Plasma Separator Tubes (PST) has a known false positive rate of 0.20-0.40%. All positive troponins reflex immediate secondary confirmatory testing. 10 SEE RESULTS BELOW [id number] OP PC TRANSFUSED 05/23/18 0456 [id number] OP PC TRANSFUSED 05/23/18 0003 11 SEE RESULT BELOW Name: MO FARAH : [address]: Jean Marie Barcenas MD Acct: [id number] Unit: [id number] AGE: 67 Location: [place] [address] Re05/22/18 Dis: 05/26/18 SEX: M Status: DIS IN SPEC: [id number] MYRANDA: 05/22/18-2254 [facility] DR: Yonatan Knox MD REQ: [id number] RECD: 05/22/18 STATUS: COMP [facility] DR: David Putnam III, MD _ SOURCE: BLOOD,VENO SPDESC: ORDERED: Blood Cult Procedure Result Reported Site Aerobic Culture Bottle Final 18- 2305 ML No Growth Day 5 Anaerobic Culture Bottle Final 05/27/18- 2305 ML No Growth Day 5 * ML - Main Lab . END OF REPORT DEPARTMENT OF PATHOLOGY, [address] [place] [address] Enrique Amezcua M.D. Director [facility] # [id number] [address] [facility] Severe Sepsis and Septic Shock Management Bundle Measure requires all lactic acids initially measuring >2.0 mmol/L be repeated. 13 Because ethnic data is not always readily [...] 15-29 5 Kidney failure <15 (or dialysis) 14 Result TnIDx:0.07 Called to [id number] at: 09:20:44 by:[id number] Read back by: [id number] 15 Presumptive Positive Presumptive positive results are unconfirmed. 16 Presumptive Positive Presumptive positive results are unconfirmed. 17 The urine specimen was tested at the listed cutoffs: Drug class test level (ng/mL) Amphetamines 500 Barbiturates 200 Benzodiazepine metabolites 200 Cocaine metabolites 150 Cannabinoids 50 Opiates 300 Pcp 25 Specimen was received without chain of custody. Results should be used for medical purposes only. 18 Therapeutic concentration: <50 ug/mL Toxic concentration: >120 ug/mL 19 Because ethnic data is not always readily [...] 15-29 5 Kidney failure <15 (or dialysis) 20 Because ethnic data is not always readily [...] 15-29 5 Kidney failure <15 (or dialysis) 21 Therapeutic concentration: <50 ug/mL Toxic concentration: >120 ug/mL 22 Presumptive Positive Presumptive positive results are unconfirmed. 23 Presumptive Positive Presumptive positive results are unconfirmed. 24 The urine specimen was tested at the listed cutoffs: Drug class test level (ng/mL) Amphetamines 500 Barbiturates 200 Benzodiazepine metabolites 200 Cocaine metabolites 150 Cannabinoids 50 Opiates 300 Pcp 25 Specimen was received without chain of custody. Results should be used for medical purposes only. 25 Desirable: <150 Borderline High: 150-199 High: 200-499 Very High: >500 26 Desirable: <200 Borderline High: 200-239 High: >239 27 Low: <40 Desirable: 40-60 High: >60 28 Desirable: <100 Near Optimal: 100-129 Borderline High: 130-159 High: 160-189 Very High: >189 29 Because ethnic data is not always readily [...] 15-29 5 Kidney failure <15 (or dialysis) 30 [place] Severe Sepsis and Septic Shock Management Bundle Measure requires all lactic acids initially measuring >2.0 mmol/L be repeated. 31 SEE RESULT BELOW Name: MO FARAH : [address]: Yonatan Knox MD Acct: [id number] Unit: [id number] AGE: 67 Location: ED Re12/15/17 SEX: M Status: DEP ER SPEC: [id number] MYRANDA: 12/15/[address]: Sari ACEVEDO REQ: [id number] RECD: 12/15/17 STATUS: JM RUTLEDGE DR: Fred Putnam III, MD _ SOURCE: BLOOD,VENO SPDESC: ORDERED: Blood Cult Procedure Result Reported Site Aerobic Culture Bottle Final 12/20/17- 1950 ML No Growth Day 5 Anaerobic Culture Bottle Final 12/20/17- 1950 ML No Growth Day 5 * ML - Main Lab . END OF REPORT DEPARTMENT OF PATHOLOGY, [address] [place] [address] Enrique Amezcua M.D. Director [facility] # [id number] 32 Because ethnic data is not always readily [...] 15-29 5 Kidney failure <15 (or dialysis) 33 Therapeutic concentration: <50 ug/mL Toxic concentration: >120 ug/mL 34 Because ethnic data is not always readily [...] 15-29 5 Kidney failure <15 (or dialysis) 35 Because ethnic data is not always [...] <50 ug/mL Toxic concentration: >120 ug/mL 37 Presumptive Positive Presumptive positive results are unconfirmed. 38 The urine specimen was tested at the listed cutoffs: Drug class test level (ng/mL) Amphetamines 500 Barbiturates 200 Benzodiazepine metabolites 200 Cocaine metabolites 150 Cannabinoids 50 Opiates 300 Pcp 25 Specimen was received without chain of custody. Results should be used for medical purposes only. 39 [id number] 40 SEE RESULT BELOW Name: MO FARAH Gayle : [address]: David Putnam III, MD Acct: [id number] Unit: [id number] AGE: 66 Location: [facility]: 05/21/17 SEX: M Status: REG REF SPEC: [id number] MYRANDA: 05/21/17-1258 [facility] DR: David Putnam III, MD REQ: [id number] RECD: 05/21/17 STATUS: COMP _ SOURCE: URINE [facility]: ORDERED: Urine Culture COMMENTS: [id number] QUERIES: Urine Source: Random Procedure Result Reported Site Urine Culture Final 05/24/17- 0836 ML Organism 1 ENTEROCOCCUS FAECALIS [place] Count >100,000 (Many) CFU/ML 1. ENTEROCOCCUS FAECALIS [...] These antibiotics are not available in the [facility] Formulary Contact the Microbiology Department for any additional antibiotic reporting. * ML - MAIN LAB ([facility]) . END OF REPORT * ML=Testing performed at Main Lab DEPARTMENT OF PATHOLOGY, [address] [place] [address] Enrique Amezcua M.D. Director [facility] # [id number] 41 Because ethnic data is not always readily [...] 15-29 5 Kidney failure <15 (or dialysis) 42 Serum levels of PSA measured using the [employer] DXI Hybritech immunoassay should not be interpreted as absolute evidence of the presence or absence of disease. The PSA value should be used in conjunction with other pertinent clinical diagnostic procedures. The values obtained with different assay methods or kits cannot be used interchangeably. 43 *Ascorbic acid is present which may interfere with detection of blood. 44 Presumptive Positive Presumptive positive results are unconfirmed. 45 The urine specimen was tested at the listed cutoffs: Drug class test level (ng/mL) Amphetamines 500 Barbiturates 200 Benzodiazepine metabolites 200 Cocaine metabolites 150 Cannabinoids 50 Opiates 300 Pcp 25 Specimen was received without chain of custody. Results should be used for medical purposes only. 46 Therapeutic concentration: <50 ug/mL Toxic concentration: >120 ug/mL 47 Because ethnic data is not always readily [...] 15-29 5 Kidney failure <15 (or dialysis) 48 >100 to <200 pg/mL: likely compensated congestive heart failure (CHF) 200 to 400 pg/mL: likely moderate CHF >400 pg/mL: likely moderate to severe CHF 49 Because ethnic data is not always [...] 5 Kidney failure <15 (or dialysis) 50 Specimen hemolyzed, spoke to Nisha for recollect. 51 Specimen hemolyzed, spoke to Nisha for recollect. 52 Specimen hemolyzed, spoke to Nisha for recollect. 53 SEE RESULT BELOW Name: MO FARAH : [address]: David Putnam III, MD Acct: [id number] Unit: [id number] AGE: 66 Location: [facility] Re01/26/17 SEX: M Status: REG REF SPEC: [id number] MYRANDA: 01/26/[address]: David Putnam III, MD REQ: [id number] RECD: 01/26/17 STATUS: COMP _ SOURCE: URINE SPDESC: ORDERED: Urine Culture Procedure Result Reported Site Urine Culture Final 01/30/17- 0829 ML Organism 1 ESCHERICHIA COLI [place] Count >100,000 (Many) CFU/ML 1. ESCHERICHIA COLI [...] antibiotic reporting. * ML - MAIN LAB ([facility]) . END OF REPORT * ML=Testing performed at Main Lab DEPARTMENT OF PATHOLOGY, [address] [place] [address] Enrique Amezcua M.D. Director [facility] # [id number] 54 SEE RESULT BELOW Name: MO FARAH Gayle : [address]: David Putnam III, MD Acct: [id number] Unit: [id number] AGE: 66 Location: [facility] Re12/18/16 SEX: M Status: REG REF SPEC: [id number] MYRANDA: 12/18/[address]: David Putnam III, MD REQ: [id number] RECD: 12/18/16 STATUS: COMP _ SOURCE: URINE [facility]: ORDERED: Urine Culture Procedure Result Reported Site Urine Culture Final 12/20/16- 07 ML Organism 1 ESCHERICHIA COLI [place] Count >100,000 (Many) CFU/ML 1. ESCHERICHIA COLI [...] antibiotic reporting. * ML - MAIN LAB ([facility]) . END OF REPORT * ML=Testing performed at Main Lab DEPARTMENT OF PATHOLOGY, [address] [place] [address] Enrique Amezcua M.D. Director [facility] # [id number] 55 Serum levels of PSA measured using the [employer] DXI Hybritech immunoassay should not be interpreted as absolute evidence of the presence or absence of disease. The PSA value should be used in conjunction with other pertinent clinical diagnostic procedures. The values obtained with different assay methods or kits cannot be used interchangeably. 56 Because ethnic data is not always readily [...] 15-29 5 Kidney failure <15 (or dialysis) 57 REFERENCE VALUE <=1.0 (Negative) 58 REFERENCE VALUE <20.0 (Negative) 59 Tests for antibodies to dsDNA and ARACELY antigens are not performed automatically unless the WILFREDO result is > or= 3.0 U. Studies performed at [facility] indicate that positive WILFREDO results <3.0 U are rarely accompanied by positive second order tests. Test Performed by: [place] [address] Entry Specialists: Garrett Slade II, M.D., Ph.D. 60 Normal Range 180 to 914 Indeterminate Range 145 to 180 Deficient Range <145 61 In this sample, the concentration of methylmalonic acid (MMA) was elevated. This finding is likely related to vitamin B12 deficiency. Test Performed by: [place] [address] Entry Specialists: Garrett Slade II, M.D., Ph.D. Procedures Date Code Description Status 12/30/2018 18121 EKG Tracing & Interpretation Completed 12/06/2018 391980037 Diabetic Retinal Eye Exam Completed 06/27/2018 71349 Treadmill Interp/Report Only Completed 06/27/2018 05113 Stress Test Supervsn W/Out I/R Completed 06/26/2018 93666 ECHO Transthorasic Realtime 2D W Doppler & Color Flow Completed Hosp 06/26/2018 23195 EKG, Interpretation Only Completed 06/25/2018 04180 EKG, Interpretation Only Completed 04/21/2018 16224 Echocardiography, Transesophageal, Real Time W/Image Completed 2D W/W/O M-M 04/21/2018 27323 Moderate Sedation Services; Same Phys Intl 15 Mins; PT Completed >=5 Years 04/21/2018 10496 Pulse Wave/Continuous-Interp.RPT Completed 04/21/2018 29184 Color Flow Doppler/Interp & Reprt Completed 04/20/2018 59155 ECHO Transthorasic Realtime 2D W Doppler & Color Flow Completed Hosp 07/20/2017 25497 Nerve Conduction 07-08 Studies Completed 02/23/2017 17811 EKG Tracing & Interpretation Completed 12/11/2016 01559 EKG, Interpretation Only Completed 12/10/2016 32043 Pulse Wave/Continuous-Interp.RPT Completed 12/10/2016 89670 Echocardiography, Transesophageal, Real Time W/Image Completed 2D W/W/O M-M 12/10/2016 61407 Color Flow Doppler/Interp & Reprt Completed 12/10/2016 26081 EKG, Interpretation Only Completed 12/10/2016 09936 Cardioversion Completed 12/09/2016 85322 Treadmill Interp/Report Only Completed 12/09/2016 93568 Stress Test Supervsn W/Out I/R Completed 12/09/2016 91859 EKG, Interpretation Only Completed 12/08/2016 56091 ECHO Transthorasic Realtime 2D W Doppler & Color Flow Completed Hosp 12/08/2016 74607 EKG, Interpretation Only Completed 04/09/2016 62782 EKG, Interpretation Only Completed 11/07/2015 63037 Laminectomy W/Explor And/Or Decompression W/O Completed Facetectomy Or Exc 11/01/2015 98138 Nerve Conduction 07-08 Studies Completed 09/30/2015 35453 Treadmill Interp/Report Only Completed 09/30/2015 41494 Stress Test Supervsn W/Out I/R Completed 09/27/2015 23846 ECHO Transthorasic Realtime 2D W Doppler & Color Flow Completed Hosp 05/22/2015 43650 ECHO Transthorasic Realtime 2D W Doppler & Color Flow Completed Hosp 05/22/2015 17216 Treadmill Interp/Report Only Completed 05/22/2015 57538 Stress Test Supervsn W/Out I/R Completed 08/29/2014 52266 ECHO Transthorasic Realtime 2D W Doppler & Color Flow Completed Hosp 08/29/2014 24503 EKG, Interpretation Only Completed 03/16/2013 61384 Xray Knee 3 Views Completed 01/03/2013 39532 Color Flow Doppler/Interp & Reprt Completed 01/03/2013 78336 Pulse Wave/Continuous-Interp.RPT Completed 01/03/2013 81950 ECHO Transthorasic Realtime 2D W Doppler & Color Flow Completed Hosp 01/02/2013 42789 Treadmill Interp/Report Only Completed 01/02/2013 07083 Stress Test Supervsn W/Out I/R Completed 01/02/2013 34876 EKG, Interpretation Only Completed Encounters Type Date Location Provider Dx Diagnosis Office Visit 08/15/2018 Luann Gonzales M54.2 [facility] Smith R06.02 Shortness of breath 10:18a Assocjodee M.D. Hospitalists Office Visit 06/27/2018 [facility] Cuab Paul I48.0 Paroxysmal atrial 11:24a Of Justine Napoles M.D. fibrillation Office Visit 06/27/2018 [facility] Jean Marie Chang R06.09 Other forms of 10:17a Assoc,jodee Barcenas MD dyspnea Hospitalists I48.0 Paroxysmal atrial fibrillation I25.10 Athscl heart disease of [place] coronary artery w/o ang pctrs I27.20 Pulmonary hypertension, unspecified Office Visit 06/26/2018 9:52a [facility] Randell Bush R79.89 Other specified Of [facility] Rivera, abnormal FACC findings of blood chemistry D64.9 Anemia, unspecified I48.0 Paroxysmal atrial fibrillation R06.02 Shortness of breath Office Visit 06/26/2018 10:17a [facility] Jean Marie Chang R06.09 Other forms Assoc,jodee Barcenas MD of dyspnea Hospitalists I48.0 Paroxysmal atrial fibrillation I25.10 Athscl heart disease of [place] coronary artery w/o ang pctrs Office Visit 06/25/2018 [facility] I48.91 Unspecified atrial 10:17a Assocjodee NP fibrillation Hospitalists R06.02 Shortness of breath I25.5 Ischemic cardiomyopathy I25.10 Athscl heart disease of [place] coronary artery w/o ang pctrs F31.9 Bipolar disorder, unspecified I10 Essential (primary) hypertension Office 06/21/2018 [facility] Anibal Gonzales K25.9 Gastric ulcer, unsp Visit 4:20p [facility] Put[facility] M.[facility] as acute or chronic, w/o hemor or perf Office 05/26/2018 [facility] Jean Marie K92.2 Gastrointestinal Visit 1:27p Assoc,pc Hospitalists Narinder Thornton MD unspecified [facility] G[facility] ulcer, unsp Visit 1:27p Assoc,pc Hospitalists Bernardo as acute or chronic, [place], MD w/o hemor or perf I48.91 Unspecified atrial fibrillation F31.9 Bipolar disorder, unspecified K59.00 Constipation, unspecified Office Visit 05/24/2018 1:27p Intensivists Mark Horton, K92.2 Gastrointestinal DO hemorrhage, [...] atrial fibrillation I25.10 Athscl heart disease of [place] coronary artery w/o ang pctrs N17.9 Acute kidney failure, unspecified D62 Acute posthemorrhagic anemia Office [facility]/22[facility]2018 [facility] I48.91 Unspecified 1:26p Assoc,pc Michael N.Jimena atrial Hospitalists fibrillation I25.5 Ischemic cardiomyopathy F31.9 Bipolar disorder, unspecified Q87.40 Marfan's syndrome, unspecified I10 Essential (primary) hypertension I25.10 Athscl heart disease of [place] coronary artery w/o ang pctrs Office Visit 04/26/2018 [facility] Internal David Gonzales I48.0 Paroxysmal atrial 3:20p MariiaStepan Putnam M.D. fibrillation I10 Essential (primary) hypertension Office Visit 04/21/2018 10:38a [facility] Flakito Lubin, I48.91 Unspecified atrial Assoc, fibrillation Hospitalists I50.21 Acute systolic (congestive) heart failure F31.9 Bipolar disorder, unspecified Office Visit 04/21/2018 12:10p [facility] Jose Oconnell I48.0 Paroxysmal atrial Of Justine Red M.D., fibrillation FACC, FASNC I51.9 Heart disease, unspecified Office Visit 04/20/2018 12:07p [facility] Lauryn Saha I50.9 Heart failure, Of Justine Martinez unspecified I48.91 Unspecified atrial fibrillation I25.10 Athscl heart disease of [place] coronary artery w/o ang pctrs R79.89 Other specified abnormal findings of blood chemistry Office Visit 04/20/2018 10:38a [facility] Flakito Lubin, J96.01 Acute respiratory Assoc,jodee LARSON failure with Hospitalists hypoxia I25.5 Ischemic cardiomyopathy I50.21 Acute systolic (congestive) heart failure F31.9 Bipolar disorder, unspecified Office Visit 04/19/2018 10:37a [facility] Flakito Lubin, J96.01 Acute respiratory Assoc,jodee LARSON failure with Hospitalists hypoxia I25.5 Ischemic cardiomyopathy I50.21 Acute systolic (congestive) heart failure F31.9 Bipolar disorder, unspecified Office Visit 04/18/2018 [facility] Jame I48.91 Unspecified atrial 10:37a Assocjodee M.D. fibrillation Hospitalists I50.21 Acute systolic (congestive) heart failure I25.5 Ischemic cardiomyopathy F31.9 Bipolar disorder, unspecified Office Visit 04/17/2018 [facility] Jame I48.91 Unspecified atrial 10:37a Assocjodee M.D. fibrillation Hospitalists I50.21 Acute systolic (congestive) heart failure I25.5 Ischemic cardiomyopathy F31.9 Bipolar disorder, unspecified Office Visit 04/16/2018 [facility] Jame I48.91 Unspecified atrial 10:36a Assocjodee M.D. fibrillation Hospitalists I50.21 Acute systolic (congestive) heart failure F31.9 Bipolar disorder, unspecified I25.5 Ischemic cardiomyopathy Office 02/10/2018 [facility] Anibal Gonzales Z02.89 Encounter for Visit 4:20p johan Kang M.D. administrative examinations Office [facility] David Gonzales I10 Essential Visit 1:00p Naheed Putnam (primary) Juan hypertension M79.671 Pain in right foot I48.0 Paroxysmal atrial fibrillation F31.9 Bipolar disorder, unspecified Z23 Encounter for immunization E78.00 Pure hypercholesterolemia, unspecified Office Visit 06/24/2017 11:30a Shameka Liu G56.03 Carpal tunnel Neurologic Juan Durán syndrome, [facility] bilateral upper limbs Office Visit 05/21/2017 11:20a [facility] David Gonzales R31.9 Hematuria, Anibal Putnam M.D. unspecified Medicine-Arrow[facility] od I10 Essential (primary) hypertension F31.9 Bipolar disorder, unspecified Office Visit 03/08/2017 8:13p [facility] Uma Carter, R41.89 Oth symptoms and Assoc,pc N.P. signs w Hospitalists cognitive functions and awareness T50.901A Poisoning by unsp drug/meds/biol subst, accidental, init F31.9 Bipolar disorder, unspecified I10 Essential (primary) hypertension Office Visit 03/07[facility]2017 [facility], R41.89 Oth symptoms and Assoc,pc N.P. signs w Hospitalists cognitive functions and awareness T50.901A Poisoning by unsp drug/meds/biol subst, accidental, init F31.9 Bipolar disorder, unspecified Office Visit [facility]2017 [facility], T50.901A Poisoning by unsp 8:11p Assoc,pc N.P. drug/meds/biol Hospitalists subst, accidental, init R41.89 Oth symptoms and signs w cognitive functions and awareness I10 Essential (primary) hypertension F31.9 Bipolar disorder, unspecified Office Visit 02/23/2017 2:40p [facility] Rohit Hernandez R00.1 BradycardiaIndio M.D. unspecified R42 Dizziness and giddiness I48.0 Paroxysmal atrial fibrillation I10 Essential (primary) hypertension I42.9 Cardiomyopathy, unspecified Q87.418 Marfan's syndrome with other cardiovascular manifestations I44.4 Left anterior fascicular block R94.31 Abnormal electrocardiogram [ECG] [EKG] Office Visit 02/01/2017 [facility] Lj R00.1 Bradycardia, 8:00a Assocjodee MD unspecified Hospitalists N30.00 Acute cystitis without hematuria R42 Dizziness and giddiness T44.7x5A Adverse effect of beta-adrenoreceptor antagonists, init Office Visit 01/31/2017 [facility] Lj R00.1 Bradycardia, 7:59a Assocjodee MD unspecified Hospitalists T44.7x5A Adverse effect of beta-adrenoreceptor antagonists, init R42 Dizziness and giddiness I25.5 Ischemic cardiomyopathy Office Visit 01/30/2017 [facility] Lj R00.1 Bradycardia, 7:58a Assoc,jodee Rodriguez MD unspecified Hospitalists I48.0 Paroxysmal atrial fibrillation I25.5 Ischemic cardiomyopathy T44.7x5A Adverse effect of beta-adrenoreceptor antagonists, init Office Visit 01/29/2017 [facility] Chip Paul R00.1 Bradycardia, 7:56a Assoc,jodee Cope M.D.,FACP unspecified Hospitalists I48.0 Paroxysmal atrial fibrillation T44.7x5A Adverse effect of beta-adrenoreceptor antagonists, init Office Visit 01/26/2017 [facility] Internal David E. M79.671 Pain in 1:00p Naheed Putnam M.D. right foot D64.9 Anemia, unspecified R35.0 Frequency of micturition Office Visit 12/18/2016 [facility] Internal David E. I48.0 Paroxysmal atrial 10:40a Naheed Putnam M.D. fibrillation I50.23 Acute on chronic systolic (congestive) heart failure Q87.40 Marfan's syndrome, unspecified I10 Essential (primary) hypertension D64.9 Anemia, unspecified F31.9 Bipolar disorder, unspecified R35.0 Frequency of micturition Office Visit 12/12/2016 11:36a [facility] Lj I49.8 Other specified Assoc,jodee Rodriguez MD cardiac Hospitalists arrhythmias I50.23 Acute on chronic systolic (congestive) heart failure R74.8 Abnormal levels of other serum enzymes I25.10 Athscl heart disease of [place] coronary artery w/o ang pctrs Office Visit 12/11/2016 4:34p [facility] Rohit Hernandez I48.0 Paroxysmal atrial Indio MMercyDMercy fibrillation I42.9 Cardiomyopathy, unspecified Office Visit 12/11/2016 11:36a [facility] Lj I49.8 Other specified Assoc,jodee Rodriguez MD cardiac Hospitalists arrhythmias I50.23 Acute on chronic systolic (congestive) heart failure R74.8 Abnormal levels of other serum enzymes I25.10 Athscl heart disease of [place] coronary artery w/o ang pctrs Office Visit 12/10/2016 4:33p [facility] Rohit FMercy I48.0 Paroxysmal atrial Maaide MMercyD. fibrillation I42.9 Cardiomyopathy, unspecified Office Visit 12/10/2016 11:35a [facility] Lj I49.8 Other specified Assoc,pc MD Michael cardiac Hospitalists arrhythmias I50.23 Acute on chronic systolic (congestive) heart failure R74.8 Abnormal levels of other serum enzymes I25.10 Athscl heart disease of [place] coronary artery w/o ang pctrs Office Visit 12/09/2016 11:34a [facility] Jame I49.8 Other specified Assoc,pc Juan Chiu cardiac Hospitalists arrhythmias I25.10 Athscl heart disease of [place] coronary artery w/o ang pctrs R74.8 Abnormal levels of other serum enzymes F31.9 Bipolar disorder, unspecified Office Visit 12/09/2016 3:08p [facility] Lauryn Saha, R06.02 Shortness of Of [place] Buyer M.D. breath I48.0 Paroxysmal atrial fibrillation I42.9 Cardiomyopathy, unspecified Office Visit 12/08/2016 11:34a [facility] Jame I49.8 Other specified Assoc,pc Juan Chiu cardiac Hospitalists arrhythmias I25.10 Athscl heart disease of [place] coronary artery w/o ang pctrs R74.8 Abnormal levels of other serum enzymes F31.9 Bipolar disorder, unspecified Office Visit 12/07/2016 11:33a [facility] Jame I49.8 Other specified Assoc,jodee Chiu M.D. cardiac Hospitalists arrhythmias F31.9 Bipolar disorder, unspecified I25.10 Athscl heart disease of [place] coronary artery w/o ang pctrs R74.8 Abnormal levels of other serum enzymes Office Visit 08/21/2016 2:45p Orthopedic Jame F31.9 Bipolar disorder, Services Of Juan Mobley unspecified C.M.A. Q87.40 Marfan's syndrome, unspecified M19.071 Primary osteoarthritis, right ankle and foot Office Visit 04/10/2016 4:12p [facility] Uma Carter, R42 Dizziness and Assoc,pc Jessica gutierrezddiness Hospitalists I25.10 Athscl heart disease of [place] coronary artery w/o ang pctrs I42.9 Cardiomyopathy, unspecified F31.9 Bipolar disorder, unspecified Office Visit 04/09/2016 [facility] Kishor Easley81.20 Vestibular 3:04p Clinic Juan Bryant neuronitis, unspecified ear Office Visit 04/09/2016 [facility] Uma Raul, R42 Dizziness and 4:11p Assoc,pc Hospitalists Jessica emery I25.10 Athscl heart disease of [place] coronary artery w/o [facility] pctrs I42.9 Cardiomyopathy, unspecified F31.9 Bipolar disorder, unspecified Office Visit 04/08/2016 [facility]hospital[facility] Kishor Bush H81.20 Vestibular 3:03p Clinic Juan Bryant neuronitis, unspecified ear I10 Essential (primary) hypertension Q87.40 Marfan's syndrome, unspecified Office Visit 04/08/2016 4:10p [facility] Jamie Michael, R42 Dizziness and Assoc,jodee emery Hospitalists I25.10 Athscl heart disease of [place] coronary artery w/o ang pctrs I42.9 Cardiomyopathy, unspecified F31.9 Bipolar disorder, unspecified Office Visit 03/22/2016 [facility] Chip Paul I48.91 Unspecified 2:15p Assoc,jodee Cope M.D.,FACP atrial Hospitalists fibrillation R79.89 Other specified abnormal findings of blood chemistry F30.9 Manic episode, unspecified Office Visit 03/21/2016 [facility] Jg Pryor I48.91 Unspecified 2:14p Assoc,jodee GRESHAM M.D. atrial Hospitalists fibrillation R79.89 Other specified abnormal findings of blood chemistry F30.9 Manic episode, unspecified Office Visit 03/20/2016 [facility] Re I48.91 Unspecified atrial 2:14p Assoc,jodee Amos M.D. fibrillation Hospitalists R79.89 Other specified abnormal findings of blood chemistry F30.9 Manic episode, unspecified Office Visit 03/19/2016 2:13p [facility] Uma Carter, I48.91 Unspecified atrial Assoc,pc N.P. fibrillation Hospitalists R79.89 Other specified abnormal findings of blood chemistry F30.9 Manic episode, unspecified Office Visit 03/17/2016 11:15a Neurosurgery Janneth Willett, M54.2 Cervicalgia [facility] PA-C Office Visit 02/15/2016 4:05p [facility] Lj R07.9 Chest pain, Assoc,jodee Rodriguez MD unspecified Hospitalists I25.10 Athscl heart disease of [place] coronary artery w/o ang pctrs I48.91 Unspecified atrial fibrillation F31.9 Bipolar disorder, unspecified Office Visit 02/14/2016 [facility] Shelbi R07.9 Chest pain, 4:05p Assoc,jodee Matson NP unspecified Hospitalists I48.91 Unspecified atrial fibrillation I25.10 Athscl heart disease of [place] coronary artery w/o ang pctrs F31.9 Bipolar disorder, unspecified Office Visit 02/10/2016 10:45a Neurosurgery Kishor Fnin M54.2 Cervicalgia Services Of Justine Martinez M62.81 Muscle weakness (generalized) Office Visit 12/12/2015 8:30a [facility] Jame 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 cervical region M62.81 Muscle weakness (generalized) Office Visit 11/13/2015 [facility] M19.071 Primary 1:10p Services Of Juan Mobley osteoarthritis, C.M.A. right ankle and foot M19.071 Primary osteoarthritis, right ankle and foot Office Visit 11/01/2015 9:00a Shameka Liu M47.12 Other spondylosis Neurologic Juan Durán with myelopathy, [facility] cervical region G62.9 Polyneuropathy, unspecified Z79.01 halfway (current) use of anticoagulants Office Visit 11/01/2015 Neurosurgery Kishor Finn M47.12 Other spondylosis 2:30p Services Of Justine Martinez with myelopathy, cervical region Office Visit 10/31/2015 [facility] Rubi Liu M62.81 Muscle weakness 9:00a Services Of Justine Durán M.D. (generalized) G62.9 Polyneuropathy, unspecified Office Visit 10/02/2015 [facility] Concepcion Martinez I48.91 Unspecified 2:46p Assoc,jodee Vu NP atrial Hospitalists fibrillation I42.9 Cardiomyopathy, unspecified F31.9 Bipolar disorder, unspecified [facility] I48.91 Unspecified 2:45p Assocjodee NP atrial Hospitalists fibrillation I42.9 Cardiomyopathy, unspecified F31.9 Bipolar disorder, unspecified Office Visit 09/30/2015 [facility] Unspecified 2:45p Assocjodee NP atrial Hospitalists fibrillation I42.9 Cardiomyopathy, unspecified F31.9 Bipolar disorder, unspecified Office Visit 09/29/2015 [facility] I48.91 Unspecified 2:44p Assoc,jodee Vu NP atrial Hospitalists fibrillation I42.9 Cardiomyopathy, unspecified F31.9 Bipolar disorder, unspecified Office Visit 09/29/2015 4:03p [facility] Lauryn Saha, I48.0 Paroxysmal atrial Of [place] Buyer M.D. fibrillation I25.10 Athscl heart disease of [place] coronary artery w/o ang pctrs I25.5 Ischemic cardiomyopathy Office Visit 09/28/2015 10:59a [facility] Lauryn Saha, I48.1 Persistent atrial Of [place] Buyer M.D. fibrillation R79.89 Other specified abnormal findings of blood chemistry I25.10 Athscl heart disease of [place] coronary artery w/o ang pctrs I25.5 Ischemic cardiomyopathy T46.2x6A Underdosing of other antidysrhythmic drugs, init encntr Z91.128 Patient's intentl undrdose of meds regimen for oth reason Office Visit 09/27/2015 [facility] Danilo Avina, I48.91 Unspecified atrial 2:42p Assoc,jodee Martinez fibrillation Hospitalists Office Visit 05/30/2015 [facility] Lj M79.89 Other specified 11:17a Assoc,jodee Rodriguez MD soft tissue Hospitalists disorders F30.9 Manic episode, unspecified L03.119 Cellulitis of unspecified part of limb Office Visit 05/29/2015 11:17a [facility] Lj M79.89 Other specified Assoc,jodee Rodriguez MD soft tissue Hospitalists disorders F30.9 Manic episode, unspecified L03.119 Cellulitis of unspecified part of limb Office Visit 05/28/2015 11:16a [facility] Jovita Bush M79.89 Other specified Assoc,jodee Viveros, N.P. soft tissue Hospitalists disorders F30.9 Manic episode, unspecified L03.119 Cellulitis of unspecified part of limb Office 05/23/2015 [facility] Peyman R94.31 Abnormal Visit 3:15p Assoc,jodee Bullock M.D. electrocardiogram Hospitalists [ECG] [EKG] R07.2 Precordial pain R77.8 Other specified abnormalities of plasma proteins F31.10 Bipolar disord, crnt episode manic w/o psych features, unsp Office Visit 05/21/2015 [facility] Jgemy Abdallajulia R07.2 Precordial pain 3:14p Assoc,jodee GRESHAM M.D. Hospitalists R94.31 Abnormal electrocardiogram [ECG] [EKG] R77.8 Other specified abnormalities of plasma proteins F31.10 Bipolar disord, crnt episode manic w/o psych features, unsp Office Visit 08/29/2014 10:16a [facility] Jennifer Larkin, 427.32 Atrial Assocjodee M.D. [place] Hospitalists 428.0 Congestive Heart Failure Unspecified 790.6 Abnormal Blood Chemistry Other Office Visit 08/29/2014 8:50a [facility] Rohit Hernandez 428.0 Congestive Heart Juan Borjas Failure Unspecified 427.32 Atrial Flutter 414.9 Ischemic Heart Disease Chronic Unspec 759.82 Marfan Syndrome Office Visit 08/28/2014 10:16a [facility] Jennifer Larkin, 427.32 Atrial Assjodee wiseman M.D. [place] Hospitalists 428.0 Congestive Heart Failure Unspecified 790.6 Abnormal Blood Chemistry Other Office Visit 03/16/2013 8:00a Orthopedic Services Jacinto Bermudez, 726.69 Bursitis Knee Of C.M.Darshana Martinez Other Office Visit 01/03/2013 7:46a [facility] Kishor Gilliland 786.51 Pain Precordial Assocjodee Hospitalists M.D. 414.01 Coronary Atherosclerosis [place] 728.89 Muscle Disorders Other V11.1 History Personal Affective Disorder Office Visit 01/02/2013 [facility] Jennifer Larkin, 786.51 Pain Precordial 7:46a Assjodee wiseman M.D. 414.01 Coronary Atherosclerosis [place] 728.89 Muscle Disorders Other V11.1 History Personal Affective Disorder Plan of Treatment 12/30/2018 - Flakito Lubin, Z01.810 Encounter for preprocedural cardiovascular fllteslakckK33.31 Abnormal electrocardiogram [ECG] [EKG]I48.0 Paroxysmal atrial emrnbvutnepgN40.10 Atherosclerotic heart disease of [place] coronary artery withE78.5 Hyperlipidemia, unspecifiedNew Medication:Lipitor 20 mg - Take 1 tab daily
--- NOTE | 2019-01-02 22:33 | ED ---
Allergic Reaction/Systemic - HPI Summary HPI Summary: This pt is a 68 y/o M presenting to [facility] accompanied by his with a CC of an allergic reaction. 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 He states that he went to shave but his body and face got sensitive. He also states that he has abnormal redness to his face around his eyes and to the right of his chin. He states that he has no prior history of any allergic reaction and the aggravating factor is unknown. He states that he has had no alleviating factor. 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 Negative: Chest Pain, Diaphoresis, Nausea, Vomiting - Allergies/Home Medications Allergies/Adverse Reactions: Allergies Allergy/AdvReac Type Severity Reaction Status Date / Time No Known Allergies Allergy Verified 01/02/19 21:53 PMH/Surg Hx/FS Hx/Imm Hx Previously Healthy: Yes Endocrine/Hematology History: Denies: Hx Anticoagulant Therapy, Hx Diabetes Cardiovascular History: Reports: Hx Atrial Fibrillation, Hx Congenital Heart Disease - murmur, Hx Congestive Heart Failure, Hx Coronary Artery Disease - Stent x2 2007, Hx Hypercholesterolemia, Hx Hypertension, Other Cardiovascular Problems/Disorders - cardiomyopathy. Marfan's syndrome Denies: Hx Angina - denies, Hx Myocardial Infarction, Hx Pacemaker/ICD, Hx Peripheral Vascular Disease, Hx Valvular Heart Disease Respiratory History: Reports: Hx Pulmonary Embolism - possible, Other Respiratory Problems/Disorders - SOB D/T WEAKNESS Denies: Hx Asthma, Hx Chronic Obstructive Pulmonary Disease (COPD), Hx Pneumonia GI History: Reports: Hx Hiatal Hernia, Hx Ulcer, Other GI Disorders - abdominal hernia History: Denies: Hx Benign Prostatic Hyperplasia - maybe, Hx Dialysis, Hx Renal Disease Musculoskeletal History: Reports: Hx Arthritis, Hx Back Problems - Chronic Neck Pain/Marfans Syndrome, Other Musculoskeletal History - Marfan's Syndrome Sensory History: Reports: Hx Macular Degeneration - lense implants x2, Hx Vision Problem - Pt states he has "blurry vision" Denies: Hx Contacts or Glasses, Hx Hearing Aid Opthamlomology History: Reports: Hx Macular Degeneration - lense implants x2, Hx Vision Problem - Pt states he has "blurry vision" Denies: Hx Contacts or Glasses Neurological History: Reports: Hx Headaches, Hx Nerve Disease, Other Neuro Impairments/Disorders - MARFAN'S SYNDROME Denies: Hx Dementia, Hx Seizures Psychiatric History: Reports: Hx Anxiety, Hx Attention Deficit Hyperactivity Disorder, Hx Depression, Hx Panic Disorder - agorophobia, Hx Inpatient Treatment , Hx Community Mental Health Tx, Hx Bipolar Disorder, Hx Substance Abuse, Other Psychiatric Issues/Disorders Denies: Hx Eating Disorder, Hx of Violent Episodes Against Others - Surgical History Surgery Procedure, Year, and Place: left knee surgery - DEEP CUT - STITCHES , left wrist , abdominal hernia x2. Watchman procedure 2017 - MR CONDITIONAL - UP TO 3T, SPATIAL GRADIENT FIELD -2500 GAUSS/cm OR LESS, MAX CHELE -LIMITED 2.0W/ kg FOR 15 MINS, NORMAL MODE - MRI. CSP - SCRAPPING/NO HARDWARE. STENTS X2 2008. CARDIAC ABLATION Hx Anesthesia Reactions: No - Immunization History Date of Tetanus Vaccine: utd Date of Influenza Vaccine: utd Infectious Disease History: No Infectious Disease History: Reports: Hx Shingles Denies: Hx Clostridium Difficile, Hx Hepatitis, Hx Human Immunodeficiency Virus (HIV), Hx of Known/Suspected MRSA, Hx Tuberculosis, History Other Infectious Disease, Traveled Outside the [place] in Last 30 Days - Family History Known Family History: Positive: Cardiac Disease - Social History Alcohol Use: Rare Alcohol Amount: 2x month Hx Substance Use: No Substance Use Type: Reports: None Substance Use Comment - Amount & Last Used: Pt states that he does use recreational substances Hx Tobacco Use: Yes Smoking Status (MU): Former Smoker Type: Cigarettes Amount Used/How Often: 5-7/day Length of Time of Smoking/Using Tobacco: 16 years total Have You Smoked in the Last Year: No Review of Systems Negative: Fever, Skin Diaphoresis Positive: Other - tongue swelling Negative: Chest Pain Negative: Shortness Of Breath Negative: Vomiting, Diarrhea, Nausea Positive: Other - redness about his face All Other Systems Reviewed And Are Negative: Yes Physical Exam - Summary Physical Exam Summary: VITAL SIGNS: Reviewed. GENERAL: Patient is a well-developed and nourished male who is lying comfortable in the stretcher. Patient is not in any acute respiratory distress. HEAD AND FACE: No signs of trauma. No ecchymosis, hematomas or skull depressions. No sinus tenderness. EYES: PERRLA, EOMI x 2, No injected conjunctiva, no nystagmus. EARS: Hearing grossly intact. Ear canals and tympanic membranes are within normal limits. MOUTH: Oropharynx within normal limits, Mild tongue swelling, no drooling NECK: Supple, trachea is midline, no adenopathy, no JVD, no carotid bruit, no c- spine tenderness, neck with full ROM CHEST: Symmetric, no tenderness at palpation LUNGS: Clear to auscultation bilaterally. No wheezing or crackles. CVS: Regular rate and rhythm, S1 and S2 present, no murmurs or gallops appreciated. ABDOMEN: Soft, non-tender. No signs of distention. No rebound no guarding, and no masses palpated. Bowel sounds are normal. EXTREMITIES: FROM in all major joints, no edema, no cyanosis or clubbing. NEURO: Alert and oriented x 3. No acute neurological deficits. Speech is normal and follows commands. SKIN: Dry and warm, no rash and no hives Triage Information Reviewed: Yes Vital Signs On Initial Exam: Initial Vitals Temp Pulse Resp BP Pulse Ox 97.9 F 68 16 177/98 95 01/02/19 21:48 01/02/19 21:48 01/02/19 21:48 01/02/19 21:48 01/02/19 21:48 Vital Signs Reviewed: Yes Diagnostics - Vital Signs Vital Signs Temp Pulse Resp BP Pulse Ox 01/02/19 21:48 97.9 F 68 16 177/98 95 - Laboratory Lab Statement: Any lab studies that have been ordered have been reviewed, and results considered in the medical decision making process. Allergic Reaction Course/Dx - Course Course Of Treatment: The pt is a 68 y/o M presenting to [facility] with allergic reaction symptoms. He states that he has a swollen tongue and his face has increased redness. His PE showed that he has Mild tongue swelling, no rash and no hives, no drooling. He stated that he was feeling better at 0146 after all the medications had been given and will be discharged home with a Dx of angiodema and instructions to contact his PCP and request a replacement medication for Ramipril. - Diagnoses Provider Diagnoses: Angio-edema Discharge - Sign-Out/Discharge Documenting (check all that apply): Patient Departure - discharge Patient Received Moderate/Deep Sedation with Procedure: No - Discharge Plan Condition: Stable Disposition: HOME Patient Education Materials: Angioedema (ED) Referrals: David uPtnam MD [Primary Care Provider] - As Soon As Possible Additional Instructions: Please follow up with your primary care physician and request a substitute for Ramipril since it caused you to have an an angioedemic episode. Please return to the emergency department with any new or worsening symptoms. - Attestation Statements Document Initiated by Scribe: Yes Documenting Scribe: Juancarlos Taylor Provider For Whom Scribe is Documenting (Include Credential): Yonatan Knox MD Scribe Attestation: Juancarlos العراقي, scribed for Yonatan Knox MD on 01/03/19 at 0146. Status of Scribe Document: Ready
[2019-01-03 02:08] VITALS: BP 122/78
== END 2019-01-03 02:08 | disposition home or self-care (01) ==
LOC: ED 21:48
DX: T78.3XXA Angioneurotic edema, initial encounter (principal); Y92.9 Unspecified place or not applicable; I48.91 Unspecified atrial fibrillation; Q24.9 Congenital malformation of heart, unspecified; I50.9 Heart failure, unspecified; I25.10 Atherosclerotic heart disease of native coronary artery without angina pectoris; E78.00 Pure hypercholesterolemia, unspecified; I11.0 Hypertensive heart disease with heart failure; Z87.891 Personal history of nicotine dependence
CPT/HCPCS: 36415; 36430; 86850; 86900; 86901; 86927; 99283; P9017

== ENCOUNTER 2019-02-25 09:38 | Emergency (ER) | payer MEDICARE, MEDICAID ==
--- NOTE | 2019-02-25 10:23 | ED ---
GI/ HPI - HPI Summary HPI Summary: 68 year old M presenting to [facility] complains of difficulty urinating for several days. Patient states he went to the bathroom 15 times last night and had difficulty urinating. Patient states he has to "manually try to get it going." Patient states that he does not have burning with urination. The patient rates the pain 4/10 in severity. Symptoms aggravated by nothing. Symptoms alleviated by nothing. - History of Current Complaint Chief Complaint: EDUrogenitalProblems Time Seen by Provider: 02/25/19 10:15 Stated Complaint: UTI PER PT Hx Obtained From: Patient Onset/Duration: Started Days Ago, Still Present Timing: Constant Current Severity: Mild Pain Intensity: 4 Aggravating Factor(s): Nothing Alleviating Factor(s): Nothing - Additional Pertinent History Primary Care Physician: CARL - Allergy/Home Medications Allergies/Adverse Reactions: Allergies Allergy/AdvReac Type Severity Reaction Status Date / Time ramipril Allergy Anaphylatic Verified 02/25/19 09:46 Shock PMH/Surg Hx/FS Hx/Imm Hx Endocrine/Hematology History: Denies: Hx Anticoagulant Therapy, Hx Diabetes Cardiovascular History: Reports: Hx Atrial Fibrillation, Hx Congenital Heart Disease - murmur, Hx Congestive Heart Failure, Hx Coronary Artery Disease - Stent x2 2007, Hx Hypercholesterolemia, Hx Hypertension, Other Cardiovascular Problems/Disorders - cardiomyopathy. Marfan's syndrome Denies: Hx Angina - denies, Hx Myocardial Infarction, Hx Pacemaker/ICD, Hx Peripheral Vascular Disease, Hx Valvular Heart Disease Respiratory History: Reports: Hx Pulmonary Embolism - possible, Other Respiratory Problems/Disorders - SOB D/T WEAKNESS Denies: Hx Asthma, Hx Chronic Obstructive Pulmonary Disease (COPD), Hx Pneumonia GI History: Reports: Hx Hiatal Hernia, Hx Ulcer, Other GI Disorders - abdominal hernia History: Denies: Hx Benign Prostatic Hyperplasia - maybe, Hx Dialysis, Hx Renal Disease Musculoskeletal History: Reports: Hx Arthritis, Hx Back Problems - Chronic Neck Pain/Marfans Syndrome, Other Musculoskeletal History - Marfan's Syndrome Sensory History: Reports: Hx Macular Degeneration - lense implants x2, Hx Vision Problem - Pt states he has "blurry vision" Denies: Hx Contacts or Glasses, Hx Hearing Aid Opthamlomology History: Reports: Hx Macular Degeneration - lense implants x2, Hx Vision Problem - Pt states he has "blurry vision" Denies: Hx Contacts or Glasses Neurological History: Reports: Hx Headaches, Hx Nerve Disease, Other Neuro Impairments/Disorders - MARFAN'S SYNDROME Denies: Hx Dementia, Hx Seizures Psychiatric History: Reports: Hx Anxiety, Hx Attention Deficit Hyperactivity Disorder, Hx Depression, Hx Panic Disorder - agorophobia, Hx Inpatient Treatment , Hx Community Mental Health Tx, Hx Bipolar Disorder, Hx Substance Abuse, Other Psychiatric Issues/Disorders Denies: Hx Eating Disorder, Hx of Violent Episodes Against Others - Surgical History Surgery Procedure, Year, and Place: left knee surgery - DEEP CUT - STITCHES , left wrist , abdominal hernia x2. Watchman procedure 2017 - MR CONDITIONAL - UP TO 3T, SPATIAL GRADIENT FIELD -2500 GAUSS/cm OR LESS, MAX CHELE -LIMITED 2.0W/ kg FOR 15 MINS, NORMAL MODE - MRI. CSP - SCRAPPING/NO HARDWARE. STENTS X2 2007. CARDIAC ABLATION Hx Anesthesia Reactions: No - Immunization History Date of Tetanus Vaccine: utd Date of Influenza Vaccine: utd Infectious Disease History: No Infectious Disease History: Reports: Hx Shingles Denies: Hx Clostridium Difficile, Hx Hepatitis, Hx Human Immunodeficiency Virus (HIV), Hx of Known/Suspected MRSA, Hx Tuberculosis, History Other Infectious Disease, Traveled Outside the US in Last 30 Days - Family History Known Family History: Positive: Cardiac Disease - father had Afib and [place], Other - mother had colon CA - Social History Alcohol Use: Rare Alcohol Amount: 2x month Hx Substance Use: No Substance Use Type: Reports: None Substance Use Comment - Amount & Last Used: Pt states that he does use recreational substances Hx Tobacco Use: Yes Smoking Status (MU): Former Smoker Type: Cigarettes Amount Used/How Often: 5-7/day Length of Time of Smoking/Using Tobacco: 16 years total Have You Smoked in the Last Year: No Review of Systems Negative: Fever Positive: other - difficulty urinating. Negative: burning All Other Systems Reviewed And Are Negative: Yes Physical Exam - Summary Physical Exam Summary: Appearance: The patient is well-nourished in no acute distress and in no acute pain. Skin: The skin is warm and dry, and skin color reflects adequate perfusion. HEENT: The head is normocephalic and atraumatic. The pupils are equal and reactive. The conjunctivae are clear and without drainage. Nares are patent and without drainage. Mouth reveals moist mucous membranes, and the throat is without erythema and exudate. The external ears are intact. The ear canals are patent and without drainage. The tympanic membranes are intact. Neck: The neck is supple with full range of motion and non-tender. There are no carotid bruits. There is no neck vein distension. Respiratory: Chest is non-tender. Lungs are clear to auscultation and breath sounds are symmetrical and equal. Cardiovascular: Heart is regular rate and rhythm. There is no murmur or rub auscultated. There is no peripheral edema and pulses are symmetrical and equal. Abdomen: The abdomen is soft and non-tender. There are normal bowel sounds heard in all four quadrants and there is no organomegaly palpated. Musculoskeletal: There is no back tenderness noted. Extremities are non-tender with full range of motion. There is good capillary refill. There is no peripheral edema or calf tenderness elicited. Neurological: Patient is alert and oriented to person, place and time. The patient has symmetrical motor strength in all four extremities. Cranial nerves are grossly intact. Deep tendon reflexes are symmetrical and equal in all four extremities. Psychiatric: The patient has an appropriate affect and does not exhibit any anxiety or depression. Triage Information Reviewed: Yes Vital Signs On Initial Exam: Initial Vitals Temp Pulse Resp BP Pulse Ox 98.3 F 66 16 163/103 94 02/25/19 09:42 02/25/19 09:42 02/25/19 09:42 02/25/19 09:42 02/25/19 09:42 Vital Signs Reviewed: Yes Diagnostics - Vital Signs Vital Signs Temp Pulse Resp BP Pulse Ox 02/25/19 09:42 98.3 F 66 16 163/103 94 - Laboratory Lab Statement: Any lab studies that have been ordered have been reviewed, and results considered in the medical decision making process. GIGU Course/Dx - Course Course Of Treatment: Mr. Farah presented with a concern that since yesterday he has been having frequency, incomplete voiding and urgency. He hasn't really had dysuria. He is no back pain or fevers/chills. He was nontoxic in appearance with stable vital signs. He urinated for us here and bladder scan showed less than 100 cc retained in his bladder. His urine was equivocal but certainly did have white blood cells and I am going to treat him with Cipro and pyridium pending cultures. - Diagnoses Provider Diagnoses: Urinary tract infection Discharge ED - Sign-Out/Discharge Documenting (check all that apply): Patient Departure - Discharge Patient Received Moderate/Deep Sedation with Procedure: No - Discharge Plan Condition: Stable Disposition: HOME Prescriptions: Ciprofloxacin TAB* [Cipro Tab*] 500 mg PO BID #14 tab Phenazopyridine 200 mg (NF) [Pyridium 200 MG tab *] 200 mg PO TID #9 tab Patient Education Materials: Urinary Tract Infection in Men (ED) Referrals: David Putnam MD [Primary Care Provider] - 2 Days Additional Instructions: Follow up with your primary care provider in the next 2-3 days. Return to the Emergency Department for new or worsening symptoms. - Billing Disposition and Condition Condition: STABLE Disposition: Home - Attestation Statements Document Initiated by Scribe: Yes Documenting Scribe: Dinora Golden Provider For Whom aDnnie is Documenting (Include Credential): Anthony Lynn MD Scribe Attestation: Dinora العراقي, scribed for Anthony Lynn MD on 02/25/19 at 1229. Scribe Documentation Reviewed: Yes Provider Attestation: The documentation as recorded by the Dinora rosa accurately reflects the service I personally performed and the decisions made by , Anthony Lynn MD Status of Scribe Document: Viewed
[2019-02-25 10:46] LABS: Urine Appearance Cloudy; Urine Bacteria 1+ (Absent); Urine Bilirubin Negative (Negative); Urine Blood Negative (Negative); Urine Color Yellow; Urine Glucose 1+(50 mg/dL) (Negative); Urine Ketones Negative (Negative); Urine Nitrite Negative (Negative); Urine Protein Negative (Negative); Urine Red Blood Cell Trace(0-2/hpf) (Absent); Urine Specific Gravity 1.014 (1.010-1.030); Urine Squamous Epithelial Cell Present (Absent); Urine Urobilinogen Negative (Negative); Urine White Blood Cell Trace(0-5/hpf) (Absent)
[2019-02-25 11:45] VITALS: BP 158/87
== END 2019-02-25 11:40 | disposition home or self-care (01) ==
LOC: ED 09:38
DX: N39.0 Urinary tract infection, site not specified (principal); Z87.891 Personal history of nicotine dependence; I48.91 Unspecified atrial fibrillation; I25.10 Atherosclerotic heart disease of native coronary artery without angina pectoris; Z95.5 Presence of coronary angioplasty implant and graft; I10 Essential (primary) hypertension; E78.00 Pure hypercholesterolemia, unspecified; R51 Headache; F90.9 Attention-deficit hyperactivity disorder, unspecified type
CPT/HCPCS: 81003; 81015; 87086; 99282

== ENCOUNTER 2019-06-11 20:52 | Emergency (ER) | payer MEDICARE, MEDICAID ==
--- NOTE | 2019-06-11 22:09 | ED ---
Adult Trauma - HPI Summary HPI Summary: 68-year-old male presents with fall today. He states that he tripped over a crack in the sidewalk and landed on his nose. He states that he did not break his fall at all. He states he has broke his nose before. No loss consciousness. Is not on blood thinners but does have a lot of cardiac history. He did not pass out. No chest pain or shortness breath. States he did not landed on his hands or his knees. He denies any pain anywhere else besides nose. Denies any change in vision. No nausea vomiting. Denies any neck pain. No loose teeth. - History of Current Complaint Chief Complaint: EDFall Stated Complaint: FALL PER PT Time Seen by Provider: 06/11/19 21:37 Pain Intensity: 6 - Additional Pertinent History Primary Care Physician: CARL - Allergy/Home Medications Allergies/Adverse Reactions: Allergies Allergy/AdvReac Type Severity Reaction Status Date / Time ramipril Allergy Anaphylatic Verified 06/11/19 20:59 Shock PMH/Surg Hx/FS Hx/Imm Hx Endocrine/Hematology History: Denies: Hx Anticoagulant Therapy, Hx Diabetes Cardiovascular History: Reports: Hx Atrial Fibrillation, Hx Congenital Heart Disease - murmur, Hx Congestive Heart Failure, Hx Coronary Artery Disease - Stent x2 2007, Hx Hypercholesterolemia, Hx Hypertension, Other Cardiovascular Problems/Disorders - cardiomyopathy. Marfan's syndrome Denies: Hx Angina - denies, Hx Myocardial Infarction, Hx Pacemaker/ICD, Hx Peripheral Vascular Disease, Hx Valvular Heart Disease Respiratory History: Reports: Hx Pulmonary Embolism - possible, Other Respiratory Problems/Disorders - SOB D/T WEAKNESS Denies: Hx Asthma, Hx Chronic Obstructive Pulmonary Disease (COPD), Hx Pneumonia GI History: Reports: Hx Hiatal Hernia, Hx Ulcer, Other GI Disorders - abdominal hernia History: Denies: Hx Benign Prostatic Hyperplasia - maybe, Hx Dialysis, Hx Renal Disease Musculoskeletal History: Reports: Hx Arthritis, Hx Back Problems - Chronic Neck Pain/Marfans Syndrome, Other Musculoskeletal History - Marfan's Syndrome Sensory History: Reports: Hx Macular Degeneration - lense implants x2, Hx Vision Problem - Pt states he has "blurry vision" Denies: Hx Contacts or Glasses, Hx Hearing Aid Opthamlomology History: Reports: Hx Macular Degeneration - lense implants x2, Hx Vision Problem - Pt states he has "blurry vision" Denies: Hx Contacts or Glasses Neurological History: Reports: Hx Headaches, Hx Nerve Disease, Other Neuro Impairments/Disorders - MARFAN'S SYNDROME Denies: Hx Dementia, Hx Seizures Psychiatric History: Reports: Hx Anxiety, Hx Attention Deficit Hyperactivity Disorder, Hx Depression, Hx Panic Disorder - agorophobia, Hx Inpatient Treatment , Hx Community Mental Health Tx, Hx Bipolar Disorder, Hx Substance Abuse, Other Psychiatric Issues/Disorders Denies: Hx Eating Disorder, Hx of Violent Episodes Against Others - Surgical History Surgery Procedure, Year, and Place: left knee surgery - DEEP CUT - STITCHES , left wrist , abdominal hernia x2. Watchman procedure 2017 - MR CONDITIONAL - UP TO 3T, SPATIAL GRADIENT FIELD -2500 GAUSS/cm OR LESS, MAX CHELE -LIMITED 2.0W/ kg FOR 15 MINS, NORMAL MODE - MRI. CSP - SCRAPPING/NO HARDWARE. STENTS X2 2007. CARDIAC ABLATION Hx Anesthesia Reactions: No - Immunization History Date of Tetanus Vaccine: utd Date of Influenza Vaccine: utd Infectious Disease History: No Infectious Disease History: Reports: Hx Shingles Denies: Hx Clostridium Difficile, Hx Hepatitis, Hx Human Immunodeficiency Virus (HIV), Hx of Known/Suspected MRSA, Hx Tuberculosis, History Other Infectious Disease, Traveled Outside the US in Last 30 Days - Family History Known Family History: Positive: Cardiac Disease - father had Afib and [place], Other - mother had colon CA - Social History Alcohol Use: None Alcohol Amount: 2x month Hx Substance Use: No Substance Use Type: Reports: None Substance Use Comment - Amount & Last Used: Pt states that he does use recreational substances Hx Tobacco Use: Yes Smoking Status (MU): Former Smoker Type: Cigarettes Amount Used/How Often: 5-7/day Length of Time of Smoking/Using Tobacco: 16 years total Have You Smoked in the Last Year: No Review of Systems Negative: Fever Positive: Other - nasal injury Negative: Chest Pain Negative: Shortness Of Breath Negative: Headache All Other Systems Reviewed And Are Negative: Yes Physical Exam Triage Information Reviewed: Yes Vital Signs On Initial Exam: Initial Vitals Temp Pulse Resp BP Pulse Ox 98.7 F 57 16 175/112 92 06/11/19 20:53 06/11/19 20:53 06/11/19 20:53 06/11/19 20:53 06/11/19 20:53 Vital Signs Reviewed: Yes Appearance: Positive: Well-Appearing Skin: Positive: Warm, Dry, Other - abrasions to nose Head/Face: Positive: Other - swelling to nose Eyes: Positive: Normal, EOMI, VENITA, Conjunctiva Clear ENT: Positive: Pharynx normal, TMs normal Respiratory/Lung Sounds: Positive: Clear to Auscultation, Breath Sounds Present Cardiovascular: Positive: Normal, RRR Musculoskeletal: Positive: Normal Neurological: Positive: Sensory/Motor Intact, Alert, Oriented to Person Place, Time, CN Intact II-III Psychiatric: Positive: Normal - [place]urel Coma Scale Best Eye Response: 4 - Spontaneous Best Motor Response: 6 - Obeys Commands Best Verbal Response: 5 - Oriented Coma Scale Total: 15 Procedures - Sedation Patient Received Moderate/Deep Sedation with Procedure: No - Laceration/Wound Repair 1 Location: face Description: Irregular Length, Depth and Shape: 3cm by 1/2cm abrasion Irrigated w/ Saline (ccs): 100 Closure: Skin Adhesive Diagnostics - Vital Signs Vital Signs Temp Pulse Resp BP Pulse Ox 06/11/19 20:53 98.7 F 57 16 175/112 92 - Laboratory Lab Statement: Any lab studies that have been ordered have been reviewed, and results considered in the medical decision making process. - Radiology maxillaryfacial Radiology Interpretation Completed By: Radiologist Summary of Radiographic Findings: IMPRESSION: Acute traumatic nasal bone fracture. brain Radiology Interpretation Completed By: Radiologist Summary of Radiographic Findings: IMPRESSION: 1. No traumatic intracranial abnormalities. 2. Age-related atrophy and mild chronic small vessel ischemic disease. Adult Trauma Course/Dx - Course Course Of Treatment: 68-year-old male presents with fall today. He states that he tripped over a crack in the sidewalk and landed on his nose. He states that he did not break his fall at all. He states he has broke his nose before. No loss consciousness. Is not on blood thinners but does have a lot of cardiac history. He did not pass out. No chest pain or shortness breath. States he did not landed on his hands or his knees. He denies any pain anywhere else besides nose. Denies any change in vision. No nausea vomiting. Denies any neck pain. No loose teeth. On exam has normal neuro exam. Abrasions and contusion noted to the nose. Cleaned area and place glue on abrasions on the nose. got CT brain due to age. CT brain normal. CT maxillofacial shows nasal fracture. Will follow-up ENT. Told to ice area. Patient understands and agrees the plan. - Diagnoses Differential Diagnosis/HQI/PQRI: Positive: Contusion(s), Fracture, Sprain Provider Diagnoses: Nasal fracture, Fall, Abrasion Discharge ED - Sign-Out/Discharge Documenting (check all that apply): Patient Departure - Discharge Plan Condition: Good Disposition: HOME Patient Education Materials: Nasal Fracture (ED) Referrals: David Putnam MD [Primary Care Provider] - Rohit Palumbo MD [Medical Doctor] - Additional Instructions: Place ice on area as needed Take Tylenol for headache every 6 hours Follow up with primary within 5 days follow up with ent Return to ED if develop any new or worsening symptoms - Billing Disposition and Condition Condition: GOOD Disposition: Home
[2019-06-11] MEDS ORDERED: traMADol TAB* 50 MG PO ONE (23:20)
[2019-06-11 23:36] VITALS: BP 0/0
== END 2019-06-11 23:20 | disposition home or self-care (01) ==
LOC: ED 20:52
DX: S02.2XXA Fracture of nasal bones, initial encounter for closed fracture (principal); W01.0XXA Fall on same level from slipping, tripping and stumbling without subsequent striking against object, initial encounter; Y92.480 Sidewalk as the place of occurrence of the external cause; I48.91 Unspecified atrial fibrillation; I11.0 Hypertensive heart disease with heart failure; I50.9 Heart failure, unspecified; I25.10 Atherosclerotic heart disease of native coronary artery without angina pectoris; E78.00 Pure hypercholesterolemia, unspecified; Z95.5 Presence of coronary angioplasty implant and graft; F41.9 Anxiety disorder, unspecified; F90.9 Attention-deficit hyperactivity disorder, unspecified type; Z87.891 Personal history of nicotine dependence; Z88.8 Allergy status to other drugs, medicaments and biological substances
CPT/HCPCS: 12013; 70450; 70486; 99283; A9270-GY

== ENCOUNTER → 2019-08-09 18:12 | Emergency (ER) | payer MEDICARE, MEDICAID ==
[~2019-08-09 18:12] MED LIST: Benzonatate CAP* 100 MG PO ONE
--- OUTSIDE RECORDS SUMMARY | 2019-08-09 18:25 | XMS REPORT ---
:1950 Author Organization [facility] Care Team Providers Name Role Phone Sanjay Pickett Primary Care Physician Unavailable Allergies, Adverse Reactions, Alerts Allergy Code CodeSystem Reaction Severity Criticality Status Start Substance Date Moderate Medications Medication Medication Medication Start Stop Route Dose Status Fill Code CodeSystem Date Date Instructions olanzapine 993906 RxNorm 2017-11 2019-0 oral 5 mg 1 active 1 tablet -28 8-22 tablet once a day once a for 30 day(s) day modafinil 408517 RxNorm 2018-08 2019-0 oral 100 mg 1 active 1 tablet -06 6-30 tablet once a day once a for 30 day(s) day divalproex 8570503 RxNorm 2017-12 2019-0 oral 500 mg active for 30 -24 8-22 tablet day(s) extended release 24 hr Problems Problem Code CodeSystem Alternate Alternate Start End Status Narrative Name Code CodeSystem Date Date Bipolar 48220037 SNOMED-CT 2018-08 Active disorder, -22 current episode manic without psychotic features, mild Relevant diagnostic tests/laboratory data Narrative No Information Procedures Procedure Code CodeSystem Target Date of Status Service Device Device Device Name Site Procedure Delivery Code Name UID Location Psychotherap [id number] SNOMED-CT () 2019-01-13 complete Mental y, 46 04 d Health- minutes with [facility] patient [address], [id number] Psychotherap [id number] SNOMED-CT () 2019-05-09 complete Mental y, 46 04 d Health- minutes with [facility] patient [address], [id number] [id number] Office [place] [id number] SNOMED-CT () 2018-09-12 complete Mental other 7 d Health- outpatient [facility] visit for [address], of an [facility] established [id number] patient, [phone] which requires at least 2 of these 3 lanza components: An expanded problem focused history; An expanded problem focused examination; Medical decision making of low Office or [id number] SNOMED-CT () 2018-11-04 complete Mental other 6 d Health- outpatient [facility] visit for [address], [facility], of an [place], [facility] [id number] patient, [phone] which requires at least 2 of these 3 lanza components: A problem focused history; A problem focused examination; Straightforw roni medical decision making. Counselin Office or [id number] SNOMED-CT () 2019-04-10 complete Mental other 6 d Health- outpatient [place] visit for [address], [facility], an [place], established [phone] patient, [phone] which requires at least 2 of these 3 lanza components: A problem focused history; A problem focused examination; Straightforw roni medical decision making. Counselin Encounters/Encounter Diagnoses Encounter Name Encounter Diagnosis Diagnosis Diagnosis Date of Service Code Code Name CodeSystem Diagnosis Delivery Location [facility] [id number] Bipolar SNOMED-CT 2019-05-09 Behavioral Individual 30 disorder, Health min current Clinic 201 episode [facility], [place], [place], psychotic [id number] features, mild Vital Signs No Information Social History Element Description Description Start End Code CodeSystem AdditionalInfo Date Date SexAssignedAtBirth Male 2-0 M AdministrativeGender 08-16 Hospital Discharge Instructions Reason For Referral Medical Equipment FDA Assessments
--- OUTSIDE RECORDS SUMMARY | 2019-08-09 18:25 | XMS REPORT ---
:1950 Author Organization [facility] Care Team Providers Name Role Phone NAOMIE MATOS Primary Care Physician Unavailable Allergies, Adverse Reactions, Alerts Allergy Code CodeSystem Reaction Severity Criticality Status Start Substance Date Moderate Medications Medication Medication Medication Start Stop Route Dose Status Fill Code CodeSystem Date Date Instructions divalproex [id number] RxNorm 2017-12-0 oral 500 mg active for 30 -24 8-22 tablet day(s) extended release 24 hr modafinil 627210 RxNorm 2018-08-0 oral 100 mg 1 active 1 tablet -06 6-30 tablet once a day once a for 30 day(s) day olanzapine 503913 RxNorm 2017-11-0 oral 5 mg 1 active 1 tablet -28 8-22 tablet once a day once a for 30 day(s) day Problems Problem Code CodeSystem Alternate Alternate Start End Status Narrative Name Code CodeSystem Date Date Bipolar [id number] SNOMED-CT 2018-08 Active disorder, -22 current episode manic without psychotic features, mild Relevant diagnostic tests/laboratory data Narrative No Information Procedures Procedure Code CodeSystem Target Date of Status Service Device Device Device Name Site Procedure Delivery Code Name UID Location Psychotherap [id number] SNOMED-CT () 2019-01-13 complete Mental y, 46 04 d Health- minutes with [address], [id number] [id number] Psychotherap [id number] SNOMED-CT () 2019-05-09 complete Mental y, 45 04 d Health- minutes with [address], [id number] [id number] Psychotherap [id number] SNOMED-CT () 2019-06-09 complete Mental y, 46 04 d Health- minutes with [address], [id number] [id number] Psychotherap [id number] SNOMED-CT () 2019-07-04 complete Mental y, 46 04 d Health- minutes with [facility] patient [address], [place], [place], [phone] [phone] Office or [id number] SNOMED-CT () 2019-06-26 complete Mental other 7 d Health- outpatient [place] visit for [address], [facility], established [id number] patient, [phone] which requires at least 2 of these 3 lanza components: An expanded problem focused history; An expanded problem focused examination; Medical decision making of low Office or [id number] SNOMED-CT () 2018-09-12 complete Mental other 7 d Health- outpatient [place] visit for [address], an [place], established [id number] patient, [phone] which requires at least 2 of these 3 lanza components: An expanded problem focused history; An expanded problem focused examination; Medical decision making of [facility] Office or [id number] SNOMED-CT () 2018-11-04 complete Mental other 6 d Health- outpatient [place] visit for [address], [facility], established [phone] patient, [phone] which requires at least 2 of these 3 lanza components: A problem focused history; A problem focused examination; Straightforw roni medical decision making. Counselin Office or [id number] SNOMED-CT () 2019-04-10 complete Mental other 6 d Health- outpatient [place] visit for [address], [facility], established [phone] patient, [phone] which requires at least 2 of these 3 lanza components: A problem focused history; A problem focused examination; Straightforw roni medical decision making. Counselin Encounters/Encounter Diagnoses Encounter Name Encounter Diagnosis Diagnosis Diagnosis Date of Service Code Code Name CodeSystem Diagnosis Delivery Location Psychotherapy - [id number] Bipolar SNOMED-CT 2019-07-04 Behavioral Individual 30 disorder, Health min current Clinic 201 episode [facility] manic [place], [place], [place], psychotic [phone] features, mild Vital Signs No Information Social History Element Description Description Start End Code CodeSystem AdditionalInfo Date Date SexAssignedAtBirth Male 1951-0 M AdministrativeGender 3-05 Hospital Discharge Instructions Reason For Referral Medical Equipment FDA Assessments
--- NOTE | 2019-08-09 19:53 | ED ---
Respiratory - HPI Summary HPI Summary: This patient is a 68 year old M presenting to ED with a chief complaint of cough since 11 days ago worsening today. Patient reports the cough is constant throughout the day. Patient reports coughing up yellow mucus. Patient reports weakness. He denies subjective fever, shortness of breath, sore throat, vomiting , diarrhea, pain or swelling in the legs. He has not tried any cough medicines for his symptoms. Patient denies a history of COPD or asthma, but he admits to a history of stents, heart ablation and CHF. The patient rates the pain 0/10 in severity. Symptoms aggravated by nothing. Symptoms alleviated by nothing. Medications reviewed. Allergies noted. - History of Current Complaint Chief Complaint: EDUpperRespComplaint Stated Complaint: COUGH PER PT Time Seen by Provider: 08/09/19 19:47 Hx Obtained From: Patient Onset/Duration: Gradual Onset, Lasting Days - Since 11 days ago, Still Present, Worse Since Timing: Constant Initial Severity: Mild Current Severity: Mild Pain Intensity: 0 Character: Cough (Productive) Sputum Color: Yellow Aggravating Factor(s): Nothing Alleviating Factor(s): Nothing Associated Signs and Symptoms: Negative - subjective fever, shortness of breath , sore throat, vomiting, diarrhea, pain or swelling in the legs - Allergy/Home Medications Allergies/Adverse Reactions: Allergies Allergy/AdvReac Type Severity Reaction Status Date / Time ramipril Allergy Anaphylatic Verified 08/09/19 18:19 Shock Home Medications: Home Medications Amiodarone TAB* [Cordarone Tab*] 200 mg PO DAILY tab 01/04/18 [Rx Confirmed 10/30] OLANzapine TAB* [Zyprexa 5 MG TAB*] 5 mg PO BEDTIME PRN 30 Days #30 tab [Rx Confirmed 05/18/19] Acetaminophen TAB* [Tylenol TAB*] 650 mg PO Q4H PRN tab 04/21/18 [Rx Confirmed 05/18/19] Divalproex ER TAB(*) [Depakote ER TAB(*)] 1,500 mg PO QAM 05/22/18 [History Confirmed 05/18/19] Metoprolol Succinate 50 mg PO DAILY 06/25/18 [History Confirmed 05/18/19] Amlodipine Besylate [Norvasc] 5 mg PO DAILY 09/15/18 [History Confirmed 05/18/19 ] Tramadol HCl [Ultram] 150 mg PO BID PRN MDD 6 09/15/18 [History Confirmed ] Ciprofloxacin TAB* [Cipro Tab*] 500 mg PO BID #14 tab 02/25/19 [Rx Confirmed 10/30] Phenazopyridine 200 mg (NF) [Pyridium 200 MG tab *] 200 mg PO TID #9 tab [Rx Confirmed 05/18/19] Benzonatate CAP* [Tessalon 100 MG CAP*] 100 mg PO TID PRN #20 cap 08/09/19 [Rx] PMH/Surg Hx/FS Hx/Imm Hx Endocrine/Hematology History: Denies: Hx Anticoagulant Therapy, Hx Diabetes Cardiovascular History: Reports: Hx Atrial Fibrillation, Hx Congenital Heart Disease - murmur, Hx Congestive Heart Failure, Hx Coronary Artery Disease - Stent x2 2007, Hx Hypercholesterolemia, Hx Hypertension, Other Cardiovascular Problems/Disorders - cardiomyopathy. Marfan's syndrome Denies: Hx Angina - denies, Hx Myocardial Infarction, Hx Pacemaker/ICD, Hx Peripheral Vascular Disease, Hx Valvular Heart Disease Respiratory History: Reports: Hx Pulmonary Embolism - possible, Other Respiratory Problems/Disorders - SOB D/T WEAKNESS Denies: Hx Asthma, Hx Chronic Obstructive Pulmonary Disease (COPD), Hx Pneumonia GI History: Reports: Hx Hiatal Hernia, Hx Ulcer, Other GI Disorders - abdominal hernia History: Denies: Hx Benign Prostatic Hyperplasia - maybe, Hx Dialysis, Hx Renal Disease Musculoskeletal History: Reports: Hx Arthritis, Hx Back Problems - Chronic Neck Pain/Marfans Syndrome, Other Musculoskeletal History - Marfan's Syndrome Sensory History: Reports: Hx Macular Degeneration - lense implants x2, Hx Vision Problem - Pt states he has "blurry vision" Denies: Hx Contacts or Glasses, Hx Hearing Aid Opthamlomology History: Reports: Hx Macular Degeneration - lense implants x2, Hx Vision Problem - Pt states he has "blurry vision" Denies: Hx Contacts or Glasses Neurological History: Reports: Hx Headaches, Hx Nerve Disease, Other Neuro Impairments/Disorders - MARFAN'S SYNDROME Denies: Hx Dementia, Hx Seizures Psychiatric History: Reports: Hx Anxiety, Hx Attention Deficit Hyperactivity Disorder, Hx Depression, Hx Panic Disorder - agorophobia, Hx Inpatient Treatment , Hx Community Mental Health Tx, Hx Bipolar Disorder, Hx Substance Abuse, Other Psychiatric Issues/Disorders Denies: Hx Eating Disorder, Hx of Violent Episodes Against Others - Surgical History Surgery Procedure, Year, and Place: left knee surgery - DEEP CUT - STITCHES , left wrist , abdominal hernia x2. Watchman procedure 2017 - MR CONDITIONAL - UP TO 3T, SPATIAL GRADIENT FIELD -2500 GAUSS/cm OR LESS, MAX CHELE -LIMITED 2.0W/ kg FOR 15 MINS, NORMAL MODE - MRI. CSP - SCRAPPING/NO HARDWARE. STENTS X2 2008. CARDIAC ABLATION Hx Anesthesia Reactions: No - Immunization History Date of Tetanus Vaccine: utd Date of Influenza Vaccine: utd Infectious Disease History: No Infectious Disease History: Reports: Hx Shingles Denies: Hx Clostridium Difficile, Hx Hepatitis, Hx Human Immunodeficiency Virus (HIV), Hx of Known/Suspected MRSA, Hx Tuberculosis, History Other Infectious Disease, Traveled Outside the [place] in Last 30 Days - Family History Known Family History: Positive: Cardiac Disease - father had Afib and [place], Other - mother had colon CA - Social History Alcohol Use: Rare Alcohol Amount: 2x month Hx Substance Use: No Substance Use Type: Reports: None Substance Use Comment - Amount & Last Used: Pt states that he does use recreational substances Hx Tobacco Use: Yes Smoking Status (MU): Former Smoker Type: Cigarettes Amount Used/How Often: 5-7/day Length of Time of Smoking/Using Tobacco: 16 years total Have You Smoked in the Last Year: No Review of Systems Negative: Fever Negative: Sore Throat Positive: Cough. Negative: Shortness Of Breath Negative: Vomiting, Diarrhea Musculoskeletal: Negative - Pain or swelling in legs Positive: Weakness All Other Systems Reviewed And Are Negative: Yes Physical Exam - Summary Physical Exam Summary: Constitutional: Well-developed, Well-nourished, Alert. (-) Distressed Skin: Warm, Dry HENT: Normocephalic; Atraumatic Eyes: Conjunctiva normal Neck: Musculoskeletal ROM normal neck. (-) JVD, (-) Stridor, (-) Tracheal deviation Cardio: Rhythm regular, rate normal, Heart sounds normal; Intact distal pulses; Radial pulses are 2+ and symmetric. (-) Murmur Pulmonary/Chest wall: Effort normal. (-) Respiratory distress, (-) Wheezes, (-) Rales Abd: Soft, (-) tenderness, (-) Distension, (-) Guarding, (-) Rebound Musculoskeletal: (-) Edema Lymph: (-) Cervical adenopathy Neuro: Alert, Oriented x3 Psych: Mood and affect Normal Triage Information Reviewed: Yes Vital Signs On Initial Exam: Initial Vitals Temp Pulse Resp BP Pulse Ox 98.6 F 73 16 161/96 97 08/09/19 18:17 08/09/19 18:17 08/09/19 18:17 08/09/19 18:17 08/09/19 18:17 Vital Signs Reviewed: Yes Procedures - Sedation Patient Received Moderate/Deep Sedation with Procedure: No Diagnostics - Vital Signs Vital Signs Temp Pulse Resp BP Pulse Ox 08/09/19 18:17 98.6 F 73 16 161/96 97 - Laboratory Result Diagrams: 08/09/19 20:21 08/09/19 20:21 Lab Statement: Any lab studies that have been ordered have been reviewed, and results considered in the medical decision making process. - Radiology CXR Radiology Interpretation Completed By: ED Physician Summary of Radiographic Findings: No acute processes, pending official radiology report. - EKG 1952 Cardiac Rate: NL - 63 BPM EKG Rhythm: Sinus Rhythm Summary of EKG Findings: NSR at 63 BPM, no STEMI. No changes from EKG from . Dr. Baltazar has reivewed and interpreted this EKG. Re-Evaluation - Re-Evaluation First Eval Re-Evaluation Time: 20:56 Comment: Discussed results with patient. Patient will be discharged home with dx of cough. Patient understands and agrees with this plan. Disposition - Course Course Of Treatment: Patient is here with 11 days of cough. Patient is overall well-appearing. Patient does not appear fluid overloaded on exam. Patient has no wheezing or abnormal breath sounds. Patient had a chest x-ray which showed no acute process. Patient had blood performed which showed kidney function and BNP at his baseline. Patient had an EKG which showed no changes from baseline. Patient was started on Tessalon. Patient will follow-up with his primary care doctor. - Diagnoses Provider Diagnoses: Cough Discharge ED - Sign-Out/Discharge Documenting (check all that apply): Patient Departure - Discharge - Discharge Plan Condition: Stable Disposition: HOME Prescriptions: Benzonatate CAP* [Tessalon 100 MG CAP*] 100 mg PO TID PRN #20 cap PRN Reason: Cough Patient Education Materials: Benzonatate (By mouth) Print Language: MACANESE Referrals: David Putnma MD [Primary Care Provider] - 3 Days Additional Instructions: Take your medicine as prescribed. Come back if you have chest pain, shortness of breath, high fever, or any other concerning symptoms. Call your primary care provider tomorrow and schedule a follow-up appointment. - Billing Disposition and Condition Condition: STABLE Disposition: Home - Attestation Statements Document Initiated by Ginie: Yes Documenting Scribe: Sanjay Jones Provider For Whom Dannie is Documenting (Include Credential): Rico Baltazar MD Scribe Attestation: ISanjay, scribed for Rico Baltazar MD on 08/09/19 at 2117. Scribe Documentation Reviewed: Yes Provider Attestation: The documentation as recorded by the Sanjay rosa accurately reflects the service I personally performed and the decisions made by me, Rico Baltazar MD Status of Scribe Document: Viewed
[2019-08-09 20:26] LABS: ABS Basophils 0.1 10^3/ul (0-0.2); ABS Eosinophils 0.3 10^3/ul (0-0.6); ABS Lymphocytes 1.2 10^3/ul (1.0-4.8); ABS Monocytes 0.5 10^3/ul (0-0.8); ABS Neutrophils 3.9 10^3/ul (1.5-7.7); Eosinophil % 4.5 %; Hematocrit 35 % (42-52); Hemoglobin 11.7 g/dL (14.0-18.0); Lymphocyte % 20.2 %; Mean Corpuscular HGB Conc 33 g/dL (31-36); Mean Corpuscular Hemoglobin 30 pg (27-31); Mean Corpuscular Volume 91 fL (80-94); Mean Platelet Volume 7.5 fL (7.4-10.4); Platelet Count 282 10^3/uL (150-450); Red Blood Count 3.85 10^6 /uL (4.18-5.48); Red Cell Distribution Width 15 % (10-15)
[2019-08-09 20:43] LABS: BUN/Creatinine Ratio 17.1 (8-20); Calcium 9.3 mg/dL (8.6-10.3); EGFR African American 67.2 (>60); EGFR Non-African American 55.6 (>60); Potassium 3.9 mmol/L (3.5-5.0)
[2019-08-09 21:15] VITALS: BP 173/101
== END | disposition home or self-care (01) ==
LOC: ED 18:12
DX: R05 Cough (principal); I48.91 Unspecified atrial fibrillation; I50.9 Heart failure, unspecified; I11.0 Hypertensive heart disease with heart failure; I25.10 Atherosclerotic heart disease of native coronary artery without angina pectoris; E78.00 Pure hypercholesterolemia, unspecified; Z95.5 Presence of coronary angioplasty implant and graft; F41.9 Anxiety disorder, unspecified; F90.9 Attention-deficit hyperactivity disorder, unspecified type; F31.9 Bipolar disorder, unspecified; Z87.891 Personal history of nicotine dependence; Z79.899 Other long term (current) drug therapy; Z88.8 Allergy status to other drugs, medicaments and biological substances
CPT/HCPCS: 36415; 71046; 80048; 83880; 85025; 93005; 99283; A9270-GY

== ENCOUNTER 2019-08-28 22:03 | Inpatient (IN) | payer MEDICARE, MEDICAID ==
[2019-08-28] MEDS ORDERED: Nitro 2% OINT* (Nitroglycerin) 1 INCH/PAK PAK TOPICAL ONE (22:23)
[2019-08-28] MEDS ORDERED: Furosemide IV* 10 MG/ML VIAL (40 MG) IV SLOW PU ONE (22:23)
--- NOTE | 2019-08-28 22:25 | ED ---
Shortness of Breath - HPI Summary HPI Summary: This pt is a 69 Y/O M presenting to [facility] with a CC of SOB that has been increasing throughout the day. He denies any fevers, chills, headaches, CP, coughing, abdominal pain, and N/V. He states that he has a Hx of CHF and states that he smoked until he was 51 Y/O. He has no aggravating or alleviating factors. He denies any oxygen usage at home. He also has a PMHx of CAD, AFIB, and HTN. - History of Current Complaint Chief Complaint: EDRespiratoryDistress Time Seen by Provider: 08/28/19 22:11 Hx Obtained From: Patient Onset/Duration: Sudden Onset, Lasting Days - 1, Still Present Timing: Constant Current Severity: Moderate Dyspnea At: Rest Aggravating Factors: Nothing Alleviating Factors: Nothing Associated Signs & Symptoms: Negative - fevers, chills, headaches, CP, coughing , abdominal pain, and N/V - Allergy/Home Medications Allergies/Adverse Reactions: Allergies Allergy/AdvReac Type Severity Reaction Status Date / Time ramipril Allergy Anaphylatic Verified 08/09/19 18:19 Shock Home Medications: Home Medications OLANzapine TAB* [Zyprexa 5 MG TAB*] 5 mg PO BEDTIME PRN 30 Days #30 tab [Rx Confirmed 08/28/19] Acetaminophen TAB* [Tylenol TAB*] 650 mg PO Q4H PRN tab 04/21/18 [Rx Confirmed 08/28/19] Divalproex ER TAB(*) [Depakote ER TAB(*)] 1,500 mg PO QAM 05/22/18 [History Confirmed 08/28/19] Metoprolol Succinate 50 mg PO DAILY 06/25/18 [History Confirmed 08/28/19] Atorvastatin* [Lipitor*] 20 mg PO DAILY 08/09/19 [History Confirmed 08/28/19] Modafinil TAB* [Provigil TAB*] 200 mg PO DAILY 08/09/19 [History Confirmed 08/27] amLODIPine TAB* [Norvasc 5 mg TAB*] 5 mg PO DAILY 08/09/19 [History Confirmed ] Amiodarone TAB* [Cordarone Tab*] 100 - 200 mg PO DAILY 08/28/19 [History Confirmed 08/28/19] PMH/Surg Hx/FS Hx/Imm Hx Previously Healthy: Yes Endocrine/Hematology History: Denies: Hx Anticoagulant Therapy, Hx Diabetes Cardiovascular History: Reports: Hx Atrial Fibrillation, Hx Congenital Heart Disease - murmur, Hx Congestive Heart Failure, Hx Coronary Artery Disease - Stent x2 2007, Hx Hypercholesterolemia, Hx Hypertension, Other Cardiovascular Problems/Disorders - cardiomyopathy. Marfan's syndrome Denies: Hx Angina - denies, Hx Myocardial Infarction, Hx Pacemaker/ICD, Hx Peripheral Vascular Disease, Hx Valvular Heart Disease Respiratory History: Reports: Hx Pulmonary Embolism - possible, Other Respiratory Problems/Disorders - SOB D/T WEAKNESS Denies: Hx Asthma, Hx Chronic Obstructive Pulmonary Disease (COPD), Hx Pneumonia GI History: Reports: Hx Hiatal Hernia, Hx Ulcer, Other GI Disorders - abdominal hernia History: Denies: Hx Benign Prostatic Hyperplasia - maybe, Hx Dialysis, Hx Renal Disease Musculoskeletal History: Reports: Hx Arthritis, Hx Back Problems - Chronic Neck Pain/Marfans Syndrome, Other Musculoskeletal History - Marfan's Syndrome Sensory History: Reports: Hx Macular Degeneration - lense implants x2, Hx Vision Problem - Pt states he has "blurry vision" Denies: Hx Contacts or Glasses, Hx Hearing Aid Opthamlomology History: Reports: Hx Macular Degeneration - lense implants x2, Hx Vision Problem - Pt states he has "blurry vision" Denies: Hx Contacts or Glasses Neurological History: Reports: Hx Headaches, Hx Nerve Disease, Other Neuro Impairments/Disorders - MARFAN'S SYNDROME Denies: Hx Dementia, Hx Seizures Psychiatric History: Reports: Hx Anxiety, Hx Attention Deficit Hyperactivity Disorder, Hx Depression, Hx Panic Disorder - agorophobia, Hx Inpatient Treatment , Hx Community Mental Health Tx, Hx Bipolar Disorder, Hx Substance Abuse, Other Psychiatric Issues/Disorders Denies: Hx Eating Disorder, Hx of Violent Episodes Against Others - Cancer History Hx Chemotherapy: No Hx Radiation Therapy: No - Surgical History Surgical History: Yes Surgery Procedure, Year, and Place: left knee surgery - DEEP CUT - STITCHES , left wrist , abdominal hernia x2. Watchman procedure 2017 - MR CONDITIONAL - UP TO 3T, SPATIAL GRADIENT FIELD -2500 GAUSS/cm OR LESS, MAX CHELE -LIMITED 2.0W/ kg FOR 15 MINS, NORMAL MODE - MRI. CSP - SCRAPPING/NO HARDWARE. STENTS X2 2007. CARDIAC ABLATION Hx Anesthesia Reactions: No - Immunization History Date of Tetanus Vaccine: utd Date of Influenza Vaccine: utd Immunizations Up to Date: Yes Infectious Disease History: No Infectious Disease History: Reports: Hx Shingles Denies: Hx Clostridium Difficile, Hx Hepatitis, Hx Human Immunodeficiency Virus (HIV), Hx of Known/Suspected MRSA, Hx Tuberculosis, History Other Infectious Disease, Traveled Outside the [place] in Last 30 Days - Family History Known Family History: Positive: Cardiac Disease - father had Afib and [place], Other - mother had colon CA - Social History Occupation: Retired Lives: Alone Alcohol Use: Rare Alcohol Amount: 2x month Hx Substance Use: No Substance Use Type: Reports: None Hx Tobacco Use: Yes Smoking Status (MU): Former Smoker Type: Cigarettes Amount Used/How Often: 5-7/day Length of Time of Smoking/Using Tobacco: 16 years total Have You Smoked in the Last Year: No Review of Systems Negative: Fever, Chills Negative: Chest Pain Positive: Shortness Of Breath. Negative: Cough Negative: Vomiting, Nausea Negative: Headache All Other Systems Reviewed And Are Negative: Yes Physical Exam - Summary Physical Exam Summary: Appearance: mild to moderately respiratory distressed male Well-nourished, lying in bed comfortably Skin: Warm, dry, no obvious rash Eyes: sclera anicteric, no conjunctival pallor ENT: mucous membranes moist, pharynx appears normal Neck: Supple, nontender Respiratory: Tachypnea with labored breathing, bilateral inspiratory crackles with no consolidation, Bedside US found presence of B lines in all quadrants scanned on the lungs, no Pneumothorax seen on bedside US or focal consolidations Cardiovascular: Normal S1, S2. No murmurs. Normal distal pulses in tibial and radial bilaterally. Abdomen: Soft, nontender, normal active bowel sounds present Musculoskeletal: Normal, Strength/ROM Intact Neurological: A&Ox3, awake and alert, mentation is normal, speech is fluent and appropriate Psychiatric: affect is normal, does not appear anxious or depressed Triage Information Reviewed: Yes Vital Signs On Initial Exam: Initial Vitals Temp Pulse Resp BP Pulse Ox 98.0 F 63 26 161/113 88 08/28/19 22:15 08/28/19 22:15 08/28/19 22:15 08/28/19 22:15 08/28/19 22:15 Vital Signs Reviewed: Yes Procedures - Sedation Patient Received Moderate/Deep Sedation with Procedure: No Diagnostics - Vital Signs Vital Signs Temp Pulse Resp BP Pulse Ox 08/28/19 22:15 98.0 F 63 26 161/113 88 - Laboratory Result Diagrams: 08/29/19 05:07 08/29/19 05:07 Lab Statement: Any lab studies that have been ordered have been reviewed, and results considered in the medical decision making process. - EKG 2240 Cardiac Rate: NL - 60 BPM EKG Rhythm: Sinus Rhythm ST Segment: Normal Ectopy: None Summary of EKG Findings: An EKG at 2240 reveals NSR at 60 BPM, nml axis, nml intervals. No STEMI. No acute changes. Interpreted by Dr. Sanchez at 2245 2019. Course/Dx - Course Course Of Treatment: This pt is a 69 Y/O M presenting to [facility] with a CC of SOB that has been increasing throughout the day. He denies any fevers, chills, headaches, CP, coughing, abdominal pain, and N/V. He states that he has a Hx of CHF and states that he smoked until he was 51 Y/O. His PE found Tachypnea with labored breathing, bilateral inspiratory crackles with no consolidation, Bedside US found presence of B lines in all quadrants scanned on the lungs, No Pneumothorax seen on bedside US or focal consolidations. An EKG at 2240 reveals NSR at 60 BPM, nml axis, nml intervals. No STEMI. No acute changes. He has abnormalities in his RBC, Hgb, Hct, BUN/creatinine ratio and Glucose. His Troponin is a .05, BNP is a 659. His CXR shows pulmonary edema. His Dx is pulmonary Edema. - Diagnoses Provider Diagnoses: Pulmonary edema - Physician Notifications Discussed Care of Patient With: Faby Michael Time Discussed With Above Provider: 23:28 Instructed by Provider To: Admit As Inpatient Admit/Transition Orders Completed By ED Provider: Yes - Critical Care Time Critical Care Time: 30-74 min - 35 Discharge ED - Sign-Out/Discharge Documenting (check all that apply): Patient Departure - admitted - Discharge Plan Condition: Good Disposition: ADMITTED TO [facility] - Billing Disposition and Condition Condition: GOOD Disposition: Admitted to [facility] - Attestation Statements Document Initiated by Scribe: Yes Documenting Scribe: Juancarlos Taylor Provider For Whom Scribe is Documenting (Include Credential): MD Pierre Hayibe Attestation: IJuancarlos, scribed for Jane Sanchez MD on 08/29/19 at 0649. Scribe Documentation Reviewed: Yes Provider Attestation: The documentation as recorded by the scribeJuancarlos accurately reflects the service I personally performed and the decisions made by me, Jane Sanchez MD Status of Scribe Document: Viewed
[2019-08-28 22:54] LABS: ABS Eosinophils 0.2 10^3/ul (0-0.6); ABS Lymphocytes 0.8 10^3/ul (1.0-4.8); ABS Monocytes 0.4 10^3/ul (0-0.8); ABS Neutrophils 6.8 10^3/ul (1.5-7.7); Eosinophil % 1.9 %; Hematocrit 34 % (42-52); Lymphocyte % 9.4 %; Mean Corpuscular HGB Conc 33 g/dL (31-36); Mean Corpuscular Hemoglobin 31 pg (27-31); Mean Corpuscular Volume 94 fL (80-94); Mean Platelet Volume 8.3 fL (7.4-10.4); Nucleated Red Blood Cells % 0.1; Platelet Count 196 10^3/uL (150-450); Red Blood Count 3.58 10^6 /uL (4.18-5.48); Red Cell Distribution Width 15 % (10-15); White Blood Count 8.1 10^3/uL (3.5-10.8)
[2019-08-28 23:10] LABS: ALT 22 U/L (7-52); AST 21 U/L (13-39); Albumin 3.4 g/dL (3.2-5.2); Albumin/Globulin Ratio 1.1 (1-3); Alkaline Phosphatase 102 U/L (34-104); Anion Gap 5 mmol/L (2-11); BUN/Creatinine Ratio 21.1 (8-20); Blood Urea Nitrogen 26 mg/dL (6-24); CO2 Carbon Dioxide 28 mmol/L (22-32); Calcium 9.2 mg/dL (8.6-10.3); Chloride 109 mmol/L (101-111); EGFR African American 70.8 (>60); EGFR Non-African American 58.5 (>60); Globulin 3.2 g/dL (2-4); Glucose 152 mg/dL (70-100); Sodium 142 mmol/L (135-145); Total Protein 6.6 g/dL (6.4-8.9)
[2019-08-28 23:16] LABS: Troponin I 0.05 ng/mL (<0.03)
[2019-08-29] MEDS ORDERED: Acetaminophen TAB* 325 MG PO PRN (01:19)
[2019-08-29] MEDS ORDERED: Ondansetron INJ* 2 MG/ML VIAL IV PRN (01:19)
[2019-08-29] MEDS ORDERED: Furosemide IV* 10 MG/ML VIAL (40 MG) IV SLOW PU ONE (01:19)
[2019-08-29] MEDS ORDERED: OLANzapine TAB* 5 MG PO PRN (01:24)
[2019-08-29 01:55] LABS: Troponin I 0.06 ng/mL (<0.03)
--- NOTE | 2019-08-29 03:34 | HP ---
CC: Dr. Putnam * HISTORY AND PHYSICAL: DATE OF ADMISSION: 08/29/19 PRIMARY CARE PROVIDER: Dr. Putnam. ATTENDING PHYSICIAN WHILE IN THE HOSPITAL: Faby Michael MD * (report dictated by Garcia Rodriguez NP) CHIEF COMPLAINT: 1. Shortness of breath. 2. Orthopnea. HISTORY OF PRESENT ILLNESS: Mr. Farah is a 69-year-old male patient. He has a known history of ischemic cardiomyopathy who also has a history of AFib, he has had CHF in the past, CAD, bipolar, Marfan syndrome, hypertension, ADHD, chronic pain, and history of GI bleed, who states that since Wednesday evening, he noted that he was having more shortness of breath particularly with exertion. No chest pain, no chest pressure. He states that Wednesday evening he ate chambers that had been pickled. He states that there was a lot of salt in it. He noted after eating this, he became more profoundly short of breath. He said he could not lie flat. Anytime he want to lay flat, he felt more short of breath. He felt that there was swelling. He thinks that he may have gained some weight in the last few days, although he does not quantify how much. He states that he has not had any recent URI symptoms. He had not been coughing. He denied any URI symptoms. He has not been feeling congested. No rhinorrhea. No sore throat. He denied any fevers or chills. The breathing was not getting better, so he came in to the ED. When he came in, he was noted to be profoundly hypertensive. He was hypoxic with sats in the 70s. Chest x-ray was concerning for obvious florid pulmonary edema. He was given Lasix and he was improving significantly. Because there was concerns for CHF, he still was requiring about 10 L via OxyMask. Because of these findings, we were asked to evaluate for admission. PAST MEDICAL HISTORY: Significant for: 1. AFib. 2. Cardiomyopathy, last EF 30% to 35%. 3. CAD. 4. Bipolar. 5. Marfan's. 6. Hypertension. 7. ADHD. 8. Chronic pain. 9. GI bleed. 10. CHF, which is systolic in nature. PAST SURGICAL HISTORY: 1. He has had Watchman's procedure. 2. Cardiac cath. 3. C-spine fusion 4. Ablation. MEDICATIONS: Home meds, we need to clarify this. He does not know his doses, but the list that I have available: 1. Norvasc 5 mg daily. 2. Zyprexa 5 mg at bedtime as needed. 3. Provigil 200 mg daily. 4. Metoprolol succinate 50 mg daily. 5. Depakote 1500 mg daily. 6. Lipitor 20 mg daily. 7. Amiodarone 100 to 200 mg daily, we will need to clarify this. 8. Tylenol 650 mg every 4 hours as needed. ALLERGIES TO MEDICATIONS: RAMIPRIL. FAMILY HISTORY: His mother had colon cancer. Father had a history of AFib and NE. SOCIAL HISTORY: Former smoke. Does not drink. Surrogate decision maker is his . REVIEW OF SYSTEMS: There is no documented fever. He does admit to a significant weight change, but is unable to quantify it. He does admit to orthopnea. There is no rhinorrhea. No sore throat. No thyroid enlargement. Denied any chest pain. There is orthopnea. There is dyspnea on exertion. There was no abdominal pain. No nausea, no vomiting. No dysuria, no frequency. No seizure, no loss of consciousness. No pruritus and no skin ulcerations. Review of 14 systems completed, all others negative. PHYSICAL EXAMINATION GENERAL: At this time, Mr. Farah is a 69-year-old male patient, he is sitting in the ED stretcher, he does not appear to be in any acute distress, appears to be well nourished, well developed. VITAL SIGNS: Blood pressure 164/96, pulse 56, respirations 24, O2 saturation when came in again was in the 80s, he is now 92% to 93% on 10 L, temperature 98.0. HEENT: Head: Atraumatic, normocephalic. Eyes: EOMs intact. Sclerae anicteric and not pale. Throat: Oral mucosa appears to be moist. No oropharyngeal erythema. NECK: Supple. LUNGS: He had crackles in the bases bilaterally and about half way up to the lung guido bilaterally. Equal diaphragmatic expansion. HEART: Heart sounds S1, S2. He had no murmurs, rubs, or gallops. ABDOMEN: Soft. It was flat. Nontender. Bowel sounds present. EXTREMITIES: Pulses were 2+ throughout. He had trace edema to the lower ankles bilaterally. 5/5 strength throughout. NEUROLOGICAL: He is awake. He is alert. He is oriented x3. Tongue midline. Consumer Affairs Director were equal. No gross focal deficits. SKIN: Intact. DIAGNOSTIC STUDIES/LAB DATA: WBC 8.1, RBC is 3.58, hemoglobin 11.0, hematocrit 34, it is right near his baseline, his platelet count was 196. Sodium 142, potassium 4, chloride 109, bicarb 28, BUN 26, creatinine 1.23, near his baseline, glucose 152. Lactate 1.6. Calcium 9.2. Total bili 0.5, AST 21, ALT 22, alk phos 102. Troponin 0.05, that is his baseline. BNP 695, which is elevated from where he normally runs. Albumin 3.4. He had a chest x-ray obtained today, which when I reviewed, I do note that he has significant pulmonary edema to bilateral lung guido, which is again diffuse. He has bilateral small pleural effusions as well. EKG obtained today shows a normal sinus rhythm, no ST elevation. He did have J point elevation elevation in V2, V3. When we reviewed back, it appears to be similar, no acute changes were noted from the previous EKG. He has had an echocardiogram done about a year ago, which at that point EF was 40% to 45%. Old medical records were reviewed. ASSESSMENT AND PLAN: Mr. Farah is a 69-year-old male patient with multiple medical problems coming in to the ED with complaints of shortness of breath. On evaluation, found to be in CHF, most likely brought on by diet. He will be admitted under inpatient status for: 1. Congestive heart failure exacerbation, acute on chronic systolic failure, probably onset related to the dietary indiscretion. At this point, I will get daily weights. I am going to update his echocardiogram. I will cycle his troponins. I suspect it is mildly elevated due to the demand ischemia from the CHF exacerbation. He will be on telemetry. I have given him an additional 40 of Lasix. He was put on a nitro patch down here in the ER. He is actually doing better. His sats are 94% to 92% on 10 L. We are slowly weaning this down. I am hopeful with the addition of Lasix, he does better and we will continue to follow. 2. Atrial fibrillation. He is not on anticoagulation. He did have a Watchman' s procedure. We will need to get his cardiology notes. He does see Dr. Bagley. We need to clarify his amiodarone. I would continue this and his beta-hussein. I may consider switching the beta-hussein to immediate release in the acute illness; however, we will again update his meds and restart when we have a better list. 3. Coronary artery disease. Again, I would continue his beta-hussein and statin therapy. He is not on aspirin. We need to get his cardiology's list and clarify. He should be on this with his history of CAD. 4. History of bipolar. Continue meds as prescribed, once they are clarified. I did order a Depakote level. 5. Hypertension. Continue meds when we were able. Blood pressure is better now with nitro and Lasix. 6. Attention deficit hyperactivity disorder. Continue with supportive care. 7. Chronic pain. Tylenol has been ordered. 8. DVT prophylaxis: I have ordered heparin subcu. 9. Code status: Full code. 10. Fluids, electrolytes, and nutrition: He can have a heart healthy diet. TIME SPENT: On admission, 60 minutes, greater than half the time spent face to face with the patient obtaining my history and physical; other half time spent going over the plan of care with the patient and implementing plan of care. I discussed the plan of care with my attending, Dr. Michael; she is in agreement. GARCIA RODRIGUEZ, MARTHA [id number]/CPS #: [id number] JANEY
[2019-08-29] MEDS: Heparin VIAL(*) 5000 UNITS/ML VIAL (FIVE THOUSAND) SUBCUT SCH ×3 (05:04→23:09)
[2019-08-29 05:22] LABS: ABS Basophils 0.1 10^3/ul (0-0.2); ABS Eosinophils 0.2 10^3/ul (0-0.6); ABS Lymphocytes 0.9 10^3/ul (1.0-4.8); ABS Monocytes 0.4 10^3/ul (0-0.8); ABS Neutrophils 6.4 10^3/ul (1.5-7.7); Eosinophil % 2.1 %; Hematocrit 32 % (42-52); Hemoglobin 10.9 g/dL (14.0-18.0); Lymphocyte % 11.6 %; Mean Corpuscular HGB Conc 34 g/dL (31-36); Mean Corpuscular Hemoglobin 32 pg (27-31); Mean Corpuscular Volume 92 fL (80-94); Mean Platelet Volume 8.2 fL (7.4-10.4); Platelet Count 189 10^3/uL (150-450); Red Blood Count 3.46 10^6 /uL (4.18-5.48); Red Cell Distribution Width 15 % (10-15); White Blood Count 7.9 10^3/uL (3.5-10.8)
[2019-08-29 05:30] LABS: INR 1.07 (0.82-1.09)
[2019-08-29 05:39] LABS: Anion Gap 6 mmol/L (2-11); BUN/Creatinine Ratio 19.3 (8-20); Blood Urea Nitrogen 23 mg/dL (6-24); CO2 Carbon Dioxide 31 mmol/L (22-32); Chloride 102 mmol/L (101-111); EGFR African American 73.6 (>60); EGFR Non-African American 60.8 (>60); Glucose 125 mg/dL (70-100); Potassium 3.4 mmol/L (3.5-5.0); Sodium 139 mmol/L (135-145)
[2019-08-29] MEDS ORDERED: amLODIPine TAB* 5 MG PO SCH (09:00)
[2019-08-29] MEDS ORDERED: Atorvastatin* 20 MG TAB PO SCH (09:00)
[2019-08-29] MEDS ORDERED: Metoprolol Succinate XL TAB* 100 MG PO SCH (09:00)
[2019-08-29] MEDS ORDERED: Divalproex ER TAB(*) 500 MG PO SCH (09:00)
[2019-08-29] MEDS ORDERED: Furosemide IV* 10 MG/ML VIAL (40 MG) IV SLOW PU SCH (09:00)
[2019-08-29] MEDS ORDERED: Potassium Chlor TAB* 20 MEQ TAB.ER PO ONE (10:12)
--- NOTE | 2019-08-29 10:20 | ECHO ---
*[facility]* [place] [address] Fax #: [phone] Transthoracic Echocardiogram Patient: Juan Farah : 1950 Study Date: 08/29/2019 Age: 69 Gender: M HR: 54 bpm Height: 74 in /188 cm BSA: 2.26 m^2 Weight: 219.5 lb /99.8 kg BMI: 28.2 kg/m^2 *Hand Endband Cutter: * Rebecca Castillo RDCS RN *Referring Physician: * Garcia RodriguezReading Physician: * Cuba Napoles MD Indications: Congestive Heart Failure. History: Atrial fibrillation. Watchman device. Coronary artery disease. Cardiomyopathy. Marfans. Risk factors: Former tobacco use. Hypertension. Conclusions Summary: - Left ventricle: The cavity size is normal. Wall thickness is moderately increased. Systolic function is mildly reduced. The estimated ejection fraction is 40-45%. Mild diffuse hypokinesis with minor regional variations. - Right ventricle: Systolic function is normal. - Mitral valve: There is mild regurgitation. - Aortic valve: There is no evidence of stenosis. - Tricuspid valve: There is mild regurgitation. - Ascending aorta: The ascending aorta is mildly dilated at 3.9 cm. - Pulmonary arteries: Systolic pressure can not be accurately estimated. - Compared to study of 06/26/18, there is no change. Study data: Transthoracic echocardiogram. Procedure: Transthoracic echocardiography was performed. Image quality was fair. The study was technically limited due to Smoking history. Complete 2D, spectral Doppler, and color flow Doppler. Location: Bedside. Patient status: Inpatient. Patient room number: 445-01. Rhythm: Bradycardia. PACs. Findings Left ventricle: The cavity size is normal. Wall thickness is moderately increased. Systolic function is mildly reduced. The estimated ejection fraction is 40-45%. Mild diffuse hypokinesis with minor regional variations. There is no consistent Doppler evidence of clinically significant diastolic dysfunction. Right ventricle: The cavity size is normal. Systolic function is normal. Left atrium: The atrium is mildly to moderately dilated. Right atrium: The atrium is normal in size. Mitral valve: The leaflets are mildly thickened. There is no evidence of stenosis. There is mild regurgitation. Aortic valve: The valve is trileaflet. The leaflets are mildly thickened. There is no evidence of stenosis. There is no regurgitation. Tricuspid valve: The leaflets are normal thickness. There is no evidence of stenosis. There is mild regurgitation. Pulmonic valve: The valve is structurally normal. There is mild regurgitation. Aorta: Aortic root: The aortic root is not dilated. Ascending aorta: The ascending aorta is mildly dilated at 3.9 cm. Aortic arch: The aortic arch is mildly dilated at 3.6 cm. Pericardium: There is no significant pericardial effusion. Pulmonary arteries: Not well visualized. Systolic pressure can not be accurately estimated. Systemic veins: Inferior vena cava: The vessel is normal in size. There is normal respiratory change in the IVC dimension. Measurements Left ventricle Value Ref Right atrium continued Value Ref VICKIE, LAX 5.1 cm 4.2 - 5.8 SI dim/bsa, ES, 2.3 cm/m^2 1.8 - ESD, LAX 3.9 cm 2.5 - 4.0 A4C 3.0 FS, LAX (L) 24 % 25 - 43 Estimated RAP 3 mm Hg -------- PW, ED (H) 1.4 cm 0.6 - 1.0 IVS/PW, ED 1.12 Aortic valve Value Ref PW/ID, ED 0.27 Chavez diam, ED 2.4 cm -------- E', lat chavez, TDI (L) 9.8 cm/sec >=10.0 Peak v, S 1.38 m/sec - ------- E/e', lat chavez, 9 VTI, S 30.1 cm ---- ---- TDI Mean grad, S 5.0 mm Hg -------- E', med chavez, TDI (L) 4.8 cm/sec >=7.0 Peak grad, S 8.0 mm Hg - ------- E/e', med chavez, 19 LVOT/AV, VTI ratio 0.52 ---- ---- TDI E', avg, TDI 7.3 cm/sec Mitral valve Value Ref E/e', avg, TDI 12 <=14 Peak E 0.9 m/sec - ------- Peak A 0.45 m/sec -------- LVOT Value Ref Decel time 204 ms -------- Peak sarah, S 0.82 m/sec Peak grad, D 3.3 mm Hg -------- VTI, S 15.6 cm Peak E/A ratio 2 -------- Mean grad, S 1 mm Hg Pulmonic valve Value Ref Ventricular septum Value Ref Peak v, S 0.9 m/sec -------- IVS, ED (H) 1.5 cm 0.6 - 1.0 Peak grad, S 3.0 mm Hg -------- Right ventricle Value Ref Aortic root Value Ref VICKIE, LAX 3.4 cm Root diam 3.5 cm <4.3 VICKIE minor ax, (H) 4.3 cm 1.9 - 3.5 A4C mid Ascending aorta Value Ref AAo AP diam, S 3.9 cm -------- Left atrium Value Ref AP dim, ES 4.00 cm 3.00 - Aortic arch Value Ref 4.00 Arch diam 3.6 cm -------- ML dim, A4C 4.8 cm SI dim, A4C 6.1 cm Decending aorta Value Ref Vol/bsa, ES, 1-p 32 ml/m^2 12 - 37 Joy peak sarah 0.39 m/sec -------- A4C Vol/bsa, ES, A/L (H) 42 ml/m^2 16 - 34 Inferior vena cava Value Ref Diam 1.7 cm -------- Right atrium Value Ref SI dim, ES 5.1 cm 3.4 - 5.3 ML dim, ES, A4C 4.0 cm 2.6 - 4.4 SI dim, ES, A4C 5.1 cm 3.4 - 5.3 Legend: (L) and (H) gabi values outside specified reference range. Prepared and electronically signed by Cuba Napoles MD 08/29/2019 10:19
[2019-08-29 10:42] LABS: Troponin I 0.06 ng/mL (<0.03)
[2019-08-29 10:46] LABS: Magnesium 1.7 mg/dL (1.9-2.7)
--- NOTE | 2019-08-29 10:50 | PN ---
Subjective Date of Service: 08/29/19 Interval History: Poor historian and poor compliance with medications and diet. He was admitted overnight for Acute CHF secondary to dietary non compliance. He follows with cardiology in [place]. He did receive so far Lasix 40 mg IV x 3 doses in 12 hours. He feels much better. CXR reviewed minimal improvement as compared to ER but it shows improvement. Will change lasix to 40 mg IV bid. Will get Echo to assess his EF now. Records from PCP for meds and cardiac note requested Past Medical History: Unchanged from Admission Objective Active Medications: Acetaminophen (Tylenol Tab*) 650 mg PO Q4H PRN PRN Reason: PAIN - MILD Furosemide (Lasix Iv*) 40 mg IV BID [facility] Heparin Sodium (Porcine) (Heparin Vial(*)) 5,000 units SUBCUT Q8HR [facility] Last Admin: 08/29/19 05:04 Dose: 5,000 units Ondansetron HCl (Zofran Inj*) 4 mg IV Q6H PRN PRN Reason: NAUSEA Vital Signs - 8 hr 08/29/19 08/29/19 08/29/19 03:15 07:15 08:00 Temperature 99.1 F 97.9 F Pulse Rate 56 60 Respiratory 18 16 16 Rate Blood Pressure 138/66 123/73 (mmHg) O2 Sat by Pulse 95 95 Oximetry Oxygen Devices in Use Now: OxyMask Appearance: awake, alert no distress Eyes: No Scleral Icterus, - - EOMI Ears/Nose/Mouth/Throat: NL Teeth, Lips, Gums, Clear Oropharnyx, Mucous Membranes Moist Neck: NL Appearance and Movements; NL JVP, Trachea Midline Respiratory: Symmetrical Chest Expansion and Respiratory Effort, Clear to Auscultation Cardiovascular: NL Sounds; No Murmurs; No JVD, RRR, No Edema Abdominal: NL Sounds; No Tenderness; No Distention Extremities: - - +1 edema. Marfan's features tall, with long arms, legs and fingers with arthritic changes Skin: No Rash or Ulcers Neurological: Alert and Oriented x 3 Result Diagrams: 08/29/19 05:07 08/29/19 05:07 Assess/Plan/Problems-Billing Assessment: 69 y/o male admitted for acute CHF exacerbation. Suspect systolic will obtain Echo to assess LV functions - Patient Problems (1) Acute respiratory failure with hypoxia Current Visit: No Status: Acute Code(s): J96.01 - ACUTE RESPIRATORY FAILURE WITH HYPOXIA SNOMED Code(s): 08580688 Comment: - Likely 2/2 acute CHF due to non compliance with diet causing pulmonary edema - Will start to wean off oxygen - Decrease Lasix to 40 mg IV bid (2) Congestive heart failure Current Visit: No Status: Acute Priority: High Onset Date: 08/28/14 Code (s): I50.9 - HEART FAILURE, UNSPECIFIED SNOMED Code(s): 23326648 Comment: - Echo ordered. I suspect ischemic cadiomyopathy. - I will decrease Lasix to 40mg IV bid - Requested records from PCP and last cardiology note. (3) Afib Current Visit: No Status: Acute Code(s): I48.91 - UNSPECIFIED ATRIAL FIBRILLATION SNOMED Code(s): 02435084 Comment: - Patient taken off coumadin due to GI bleed - He has watchman device - Will continue amiodarone, His dose verified Amiodarone 200 mg daily and toprol XL 50 mg daily. Now in sinus rhythm (4) Hx of bipolar disorder Current Visit: No Status: Chronic Priority: Medium Code(s): Z86.59 - PERSONAL HISTORY OF OTHER MENTAL AND BEHAVIORAL DISORDERS SNOMED Code(s): 688500536 Comment: - Stable. He tells me he no longer takes Depakote. - I requested med list from PCP. (5) Marfan syndrome Current Visit: No Status: Chronic Priority: Medium Code(s): Q87.40 - MARFAN'S SYNDROME, UNSPECIFIED SNOMED Code(s): 63829923 Comment: - follow up with his retail beauty specialist for his routine screen for aneurysm (6) DVT prophylaxis Current Visit: No Status: Acute Priority: Medium Onset Date: 08/28/14 Code(s): KWY6830 - SNOMED Code(s): 231735203 Comment: -Continue Heparin SQ
[2019-08-29] MEDS ORDERED: Furosemide IV* 10 MG/ML VIAL (40 MG) IV SCH ×2 (11:00→21:00)
[2019-08-29] MEDS: Amiodarone TAB* 200 MG PO SCH (16:34)
[2019-08-29] MEDS: Atorvastatin* 20 MG TAB PO SCH ×2 (20:20→20:41)
[2019-08-29] MEDS: Metoprolol Succinate XL TAB* 50 MG PO SCH ×2 (20:20→20:41)
[2019-08-29] MEDS: LORazepam TAB(*) 1 MG PO PRN (20:20)
[2019-08-29] MEDS: OLANzapine TAB* 5 MG PO SCH ×2 (20:20→20:41)
[2019-08-30] MEDS ORDERED: Magnesium Sulfate 2 GM IV* 2 GM/50 ML BAG IVPB ONE ×2 (03:19→07:23)
[2019-08-30 04:44] LABS: ABS Eosinophils 0.3 10^3/ul (0-0.6); ABS Lymphocytes 1.3 10^3/ul (1.0-4.8); ABS Monocytes 0.3 10^3/ul (0-0.8); Eosinophil % 5.4 %; Hematocrit 34 % (42-52); Hemoglobin 11.4 g/dL (14.0-18.0); Lymphocyte % 22.2 %; Mean Corpuscular HGB Conc 33 g/dL (31-36); Mean Corpuscular Hemoglobin 30 pg (27-31); Mean Corpuscular Volume 92 fL (80-94); Mean Platelet Volume 7.9 fL (7.4-10.4); Nucleated Red Blood Cells % 0.1; Platelet Count 215 10^3/uL (150-450); Red Blood Count 3.73 10^6 /uL (4.18-5.48); Red Cell Distribution Width 15 % (10-15)
[2019-08-30 05:02] LABS: BUN/Creatinine Ratio 19.6 (8-20); EGFR African American 59.5 (>60); EGFR Non-African American 49.2 (>60); Magnesium 1.8 mg/dL (1.9-2.7); Phosphorus 2.9 mg/dL (2.5-5.0); Potassium 3.3 mmol/L (3.5-5.0)
[2019-08-30] MEDS: Heparin VIAL(*) 5000 UNITS/ML VIAL (FIVE THOUSAND) SUBCUT SCH ×3 (05:20→20:52)
[2019-08-30] MEDS ORDERED: Potassium Chlor TAB* 20 MEQ TAB.ER PO ONE (07:20)
[2019-08-30] MEDS: amLODIPine TAB* 5 MG PO SCH (08:14)
[2019-08-30] MEDS: Furosemide IV* 10 MG/ML VIAL (40 MG) IV SCH (08:14)
[2019-08-30] MEDS: Amiodarone TAB* 200 MG PO SCH (08:15)
--- NOTE | 2019-08-30 12:59 | PN ---
Subjective Date of Service: 08/30/19 Interval History: HD2 on 08/29 69 M with PMH of Ischemic Cardiomyopathy, CHF(HFrEF; now HFpEF), Bipolar, Marfan Syndrome, HTN, ADHD, GI bleed and chronic pain presented with SOB on exertion, orthopnea and weight gain. Found to be in HF exacerbation 2/2 dietary nonadherence. Overnight; No acute overnight events Patient seen and examined at bedside. Patient states feeling better than yesterday but still not back to his baseline. Patient is Catherine: [phone] who gives history that patient is been in a place where there were lot of people from [place]. And since last 2 weeks he was having productive cough, runny nose and congestion. But no fever noted. He does not use oxygen at home and is currently requiring 2-3 L of oxygen. We will slowly wean him off. Objective Active Medications: Acetaminophen (Tylenol Tab*) 650 mg PO Q4H PRN PRN Reason: PAIN - MILD Amiodarone HCl (Cordarone Tab*) 200 mg PO DAILY [facility] Last Admin: 08/30/19 08:15 Dose: 200 mg Amlodipine Besylate (Norvasc Tab*) 5 mg PO DAILY [facility] Last Admin: 08/30/19 08:14 Dose: 5 mg Atorvastatin Calcium (Lipitor*) 20 mg PO BEDTIME [facility] Last Admin: 08/29/19 20:41 Dose: 20 mg Furosemide (Lasix Iv*) 40 mg IV DAILY [facility] Last Admin: 08/30/19 08:14 Dose: 40 mg Heparin Sodium (Porcine) (Heparin Vial(*)) 5,000 units SUBCUT Q8HR [facility] Last Admin: 08/30/19 05:20 Dose: 5,000 units Lorazepam (Ativan Tab(*)) 1 mg PO BEDTIME PRN PRN Reason: ANXIETY Metoprolol Succinate (Toprol Xl Tab*) 50 mg PO BEDTIME [facility] Last Admin: 08/29/19 20:41 Dose: 50 mg Olanzapine (Zyprexa Tab*) 5 mg PO BEDTIME [facility] Last Admin: 08/29/19 20:41 Dose: 5 mg Ondansetron HCl (Zofran Inj*) 4 mg IV Q6H PRN PRN Reason: NAUSEA Vital Signs - 8 hr 08/30/19 08/30/19 08/30/19 07:44 08:00 11:15 Temperature 97.3 F 97.9 F Pulse Rate 58 59 Respiratory 18 18 16 Rate Blood Pressure 150/88 136/95 (mmHg) O2 Sat by Pulse 96 91 Oximetry Oxygen Devices in Use Now: Nasal Cannula Exam: Patient is sitting on a bed with no acute distress. HEENT: Normocephalic and atraumatic NEck: No JVD seen Chest: Good respiratory effort; mild crackles on left lung bases Abdomen: soft, nondistended and nontender. Normal BS heard Extremities: No swelling Neuro: ALert, oriented and coperative Result Diagrams: 08/31/19 04:47 08/31/19 04:49 Assess/Plan/Problems-Billing Assessment: 69 M with PMH of Ischemic Cardiomyopathy, CHF(HFrEF; now HFpEF), Bipolar, Marfan Syndrome, HTN, ADHD, GI bleed and chronic pain presented with SOB on exertion, orthopnea and weight gain. Found to be in HF exacerbation 2/2 dietary nonadherence. Suspicion of viral pneumonia. - Patient Problems (1) Acute respiratory failure with hypoxia Current Visit: No Status: Acute Code(s): J96.01 - ACUTE RESPIRATORY FAILURE WITH HYPOXIA SNOMED Code(s): 44492688 Comment: - Likely 2/2 acute CHF due to non compliance with diet causing pulmonary edema; also suspicion of CAP given recent hx of cough and URI and CXR showing pulm edema along with infiltrates; elevated CRP - NO oxygen at home- will slowly wean him off -decreased lasix to OD as creatiine elevated (2) Congestive heart failure Current Visit: No Status: Acute Priority: High Onset Date: 08/28/14 Code (s): I50.9 - HEART FAILURE, UNSPECIFIED SNOMED Code(s): 24107862 Comment: - was HFrEF with Ef of 35% but echo on this visit shows EF of 45 % with mild to meoderate LA dilatation -CXR showing slight improvemnt on lasix BID -does not seem grossly volume overload -decreased lasix to OD -will need VERONIQUE/ARB (3) Pneumonia Current Visit: Yes Status: Acute Code(s): J18.9 - PNEUMONIA, UNSPECIFIED ORGANISM SNOMED Code(s): 103434169 Comment: -likely CAP -has infiltrates on CXR\ -recent productive cough and URI sx - states patient was in places with people who has been to [facility] -will give augmentin BID(started on 08/29) -will also check for COVID (4) Afib Current Visit: No Status: Acute Code(s): I48.91 - UNSPECIFIED ATRIAL FIBRILLATION SNOMED Code(s): 23784258 Comment: - Patient taken off coumadin due to GI bleed - He has watchman device - Will continue amiodarone, His dose verified Amiodarone 200 mg daily and toprol XL 50 mg daily. Now in sinus rhythm and rate controlled (5) Hx of bipolar disorder Current Visit: No Status: Chronic Priority: Medium Code(s): Z86.59 - PERSONAL HISTORY OF OTHER MENTAL AND BEHAVIORAL DISORDERS SNOMED Code(s): 090601159 Comment: - Stable. -He tells me he no longer takes Depakote- was stopped by his psychiatrist - will get records from PCP (6) Hypertension Current Visit: No Status: Chronic Code(s): I10 - ESSENTIAL (PRIMARY) HYPERTENSION SNOMED Code(s): 84506857 Comment: -On amlodipine and metoprolol -BP normalizing (7) Marfan syndrome Current Visit: No Status: Chronic Priority: Medium Code(s): Q87.40 - MARFAN'S SYNDROME, UNSPECIFIED SNOMED Code(s): 14877771 Comment: - follow up with his speech/language therapist for his routine screen for aneurysm (8) NEETA (acute kidney injury) Current Visit: No Status: Resolved Priority: Medium Code(s): N17.9 - ACUTE KIDNEY FAILURE, UNSPECIFIED SNOMED Code(s): 98250022 Comment: -elevated creatinine to 1.43 -will decrease lasix to OD -will trend (9) Full code status Current Visit: No Status: Acute Code(s): Z78.9 - OTHER SPECIFIED HEALTH STATUS SNOMED Code(s): 185458682 (10) DVT prophylaxis Current Visit: No Status: Acute Priority: Medium Onset Date: 08/28/14 Code(s): BNF3475 - SNOMED Code(s): 124827700 Comment: -Continue Heparin SQ Status and Disposition: Inpatient on isolation Attending: Valentina Pete Attestation Documenting Resident: Selena Supervising Physician: Yanci Attestation: This service has been performed in part by a resident under the direction of a teaching physician.Yanci العراقي, performed the service, or was physically present during the critical, or lanza portions of the service, furnished by the resident. I participated in the management of the patient.
[2019-08-30 13:55] LABS: C Reactive Protein 163.45 mg/L (<8.01)
--- NOTE | 2019-08-30 17:01 | PN ---
Hospitalist Progress Note Date of Service: 08/30/19 Mr. Farah was admitted with decompensated heart failure, but on further questioning, he reports that his symptoms first began with a cough after spending time with friends who had just gotten back from a bus trip to [facility]. His CXR has b/l patchy infiltrates that are improved with diuresis, but he remains hypoxic, and developed an NEETA wtih diuresis, and CRP is 160. Based on these findings, I am sending a covid swab and transferring him to [facility]. I will also treat him empirically for community acquired pneumonia. His was updated by Dr. Walters.
[2019-08-30] MEDS: Atorvastatin* 20 MG TAB PO SCH (20:51)
[2019-08-30] MEDS: Metoprolol Succinate XL TAB* 50 MG PO SCH (20:51)
[2019-08-30] MEDS: OLANzapine TAB* 5 MG PO SCH (20:52)
[2019-08-30] MEDS: Amoxicillin/Clavulanate TAB* 875 MG PO SCH (20:52)
[2019-08-30] MEDS: LORazepam TAB(*) 1 MG PO PRN (20:53)
[2019-08-31 05:15] LABS: ABS Eosinophils 0.4 10^3/ul (0-0.6); ABS Lymphocytes 1.7 10^3/ul (1.0-4.8); ABS Monocytes 0.4 10^3/ul (0-0.8); ABS Neutrophils 3.9 10^3/ul (1.5-7.7); Eosinophil % 5.6 %; Hematocrit 39 % (42-52); Hemoglobin 12.8 g/dL (14.0-18.0); Lymphocyte % 26.1 %; Mean Corpuscular HGB Conc 33 g/dL (31-36); Mean Corpuscular Hemoglobin 30 pg (27-31); Mean Corpuscular Volume 92 fL (80-94); Platelet Count 273 10^3/uL (150-450); Red Blood Count 4.22 10^6 /uL (4.18-5.48); Red Cell Distribution Width 15 % (10-15); White Blood Count 6.3 10^3/uL (3.5-10.8)
[2019-08-31 05:31] LABS: BUN/Creatinine Ratio 22.9 (8-20); Calcium 9.6 mg/dL (8.6-10.3); EGFR African American 65.8 (>60); EGFR Non-African American 54.4 (>60)
[2019-08-31] MEDS: Heparin VIAL(*) 5000 UNITS/ML VIAL (FIVE THOUSAND) SUBCUT SCH ×2 (05:45→16:02)
[2019-08-31] MEDS: Furosemide IV* 10 MG/ML VIAL (40 MG) IV SCH (08:25)
[2019-08-31] MEDS: Amiodarone TAB* 200 MG PO SCH (08:26)
[2019-08-31] MEDS: Amoxicillin/Clavulanate TAB* 875 MG PO SCH (08:26)
[2019-08-31] MEDS: amLODIPine TAB* 5 MG PO SCH (08:26)
--- NOTE | 2019-08-31 14:39 | PN ---
Subjective Date of Service: 08/31/19 Interval History: Mr. Farah reports that he is feeling quite well and is happy with the discharge to home. He denies chest pain or SOB. Past Medical History: Unchanged from Admission Objective Active Medications: Acetaminophen (Tylenol Tab*) 650 mg PO Q4H PRN Amiodarone HCl (Cordarone Tab*) 200 mg PO DAILY CHRIS Amlodipine Besylate (Norvasc Tab*) 5 mg PO DAILY CHRIS Amoxicillin/Clavulanate Potassium (Augmentin Tab*) 875 mg PO BID CHRIS Atorvastatin Calcium (Lipitor*) 20 mg PO BEDTIME CHRIS Furosemide (Lasix Iv*) 40 mg IV DAILY CHRIS Heparin Sodium (Porcine) (Heparin Vial(*)) 5,000 units SUBCUT Q8HR CHRIS Lorazepam (Ativan Tab(*)) 1 mg PO BEDTIME PRN Metoprolol Succinate (Toprol Xl Tab*) 50 mg PO BEDTIME CHRIS Olanzapine (Zyprexa Tab*) 5 mg PO BEDTIME CHRIS Ondansetron HCl (Zofran Inj*) 4 mg IV Q6H PRN Vital Signs: Temp Pulse Resp BP Pulse Ox 97.4 F 109 18 110/67 94 08/31/19 11:15 08/31/19 11:15 08/31/19 11:15 08/31/19 11:15 08/31/19 11:15 Oxygen Devices in Use Now: None Appearance: Male sitting up in bed in NAD Eyes: No Scleral Icterus Ears/Nose/Mouth/Throat: Mucous Membranes Moist Neck: NL Appearance and Movements; NL JVP Respiratory: Symmetrical Chest Expansion and Respiratory Effort, Clear to Auscultation Cardiovascular: NL Sounds; No Murmurs; No JVD, - - Trace LE edema Abdominal: NL Sounds; No Tenderness; No Distention Skin: No Rash or Ulcers Neurological: Alert and Oriented x 3, NL Muscle Strength and Tone Nutrition: Taking PO's Result Diagrams: 08/31/19 04:47 08/31/19 04:49 Assess/Plan/Problems-Billing Assessment: 69 M with PMH of Ischemic Cardiomyopathy, CHF(HFrEF; now HFpEF), Bipolar, Marfan Syndrome, HTN, ADHD, GI bleed and chronic pain presented with SOB on exertion, orthopnea and weight gain. Found to be in HF exacerbation 2/2 dietary nonadherence. Suspicion of viral pneumonia. - Patient Problems (1) Acute respiratory failure with hypoxia Comment: - Resolved, on room air - Likely 2/2 acute CHF due to non compliance with diet causing pulmonary edema; also suspicion of CAP given recent hx of cough and URI and CXR showing pulm edema along with infiltrates; elevated CRP -decreased lasix to OD as creatinine elevated (2) Pneumonia Comment: - likely CAP - has infiltrates on CXR, recent productive cough and URI sx - states patient was in places with people who has been to [facility] - Continue augmentin BID(started on 08/29) - will also check for COVID (3) Congestive heart failure Comment: - was HFrEF with Ef of 35% but echo on this visit shows EF of 45 % with mild to meoderate LA dilatation -CXR showing slight improvemnt on lasix BID - Would consider adding VERONIQUE-ARB when creatinine stabilized - Plan for lasix 20mg po three times weekly - Check daily weights (4) Afib Comment: - Patient taken off coumadin due to GI bleed - He has watchman device - Will continue amiodarone, His dose verified Amiodarone 200 mg daily and toprol XL 50 mg daily. Now in sinus rhythm and rate controlled (5) Bipolar 1 disorder with moderate bari Comment: -Continue Depakote (6) PUD (peptic ulcer disease) Current Visit: No Status: Acute Code(s): K27.9 - PEPTIC ULC, SITE UNSP, UNSP AC OR CHR, W/O HEMOR OR PERF SNOMED Code(s): 69576075 Comment: - Secondary to h/of PUD and chronic anticoagulations - Previously seen by Dr. Meehan in 05/218 s/p EGD which did shows erosion gastritis and PUD. - Off warfarin for now as per cardiology given his GI bleed. OK to remain on baby aspirin - PPI bid and follow up with Dr. Meehan from GI (7) Hypertension Comment: - BP improved with diuresis - On amlodipine and metoprolol (8) DVT prophylaxis Comment: -Heparin SQ (9) Full code status Comment: Status and Disposition: Inpatient, discharge to home. Is on self-quarantine for COVID-19 rule out.
[2019-08-31 16:00] VITALS: BP 131/86
== END 2019-08-31 17:00 | disposition home or self-care (01) | DRG 291 ==
LOC: ED 22:03 → MEDTELE 08-29 01:16 → MED 08-30 15:05
PROVIDERS: ADMIT Nurse Practitioner Family; ATTEND Internal Medicine
DX: I11.0 Hypertensive heart disease with heart failure (principal); J96.01 Acute respiratory failure with hypoxia; J18.9 Pneumonia, unspecified organism; I50.31 Acute diastolic (congestive) heart failure; Q87.40 Marfan syndrome, unspecified; I24.8 Other forms of acute ischemic heart disease; N17.9 Acute kidney failure, unspecified; I50.23 Acute on chronic systolic (congestive) heart failure; I25.5 Ischemic cardiomyopathy; I25.10 Atherosclerotic heart disease of native coronary artery without angina pectoris; I48.91 Unspecified atrial fibrillation; F90.9 Attention-deficit hyperactivity disorder, unspecified type; K27.9 Peptic ulcer, site unspecified, unspecified as acute or chronic, without hemorrhage or perforation; F31.9 Bipolar disorder, unspecified; Z87.19 Personal history of other diseases of the digestive system; Z79.899 Other long term (current) drug therapy; Z88.8 Allergy status to other drugs, medicaments and biological substances; Z82.49 Family history of ischemic heart disease and other diseases of the circulatory system; Z80.0 Family history of malignant neoplasm of digestive organs; Z87.891 Personal history of nicotine dependence
CPT/HCPCS: 36415; 71045; 80048; 80053; 80164; 83605; 83735; 83880; 84100; 84484; 85025; 85610; 86140; 87899; 93005; 93306; 96374; 99285; A9270-GY; J1644; J1940; J3475; U0002

== ENCOUNTER 2019-09-22 20:13 | Emergency (ER) | payer MEDICARE, MEDICAID ==
--- OUTSIDE RECORDS SUMMARY | 2019-09-22 20:53 | XMS REPORT | Continuity of Care Document ---
:1950 External Reference #:[id number] Author Name Valentina Pete DO (transmitted by agent of provider Leena Barrett) Address [address] [place] [id number] Care Team Providers Name Role Phone David Putnam III, MD - Internal Care Team Information Admissions Dean [phone] Hubert Whitehead MD - Gastroenterology Care Team Information Admissions Dean [phone] Mark Mendoza MD - Gastroenterology Care Team Information Admissions Dean Visiting Nurse Services [facility] - Care Team Information Admissions Dean [facility] - Pain Care Team Information Admissions Dean [phone] Problems Active Problems Provider Date Cervical spondylosis [...] with hypoxia Flakito Lubin MD Onset: 04/20/2018 Social History Type Date Description Comments Sex Unknown ETOH Use Rarely consumes alcohol Tobacco Use Start: Unknown End: Patient is a former Quit 2001; smoked Unknown smoker for 15 years Recreational Drug Use Denies Drug Use Smoking Status Reviewed: 03/23/19 Patient is a former Quit 2001; smoked smoker for 15 years Exercise Type/Frequency Exercises sporadically limited due to ankle pain Allergies, Adverse Reactions, Alerts Active Allergies Reaction Severity Comments Date NKDA 10/31/2015 Ramipril 03/16/2019 Inactive Allergies NKDA 03/16/2013 Medications Active Medications SIG Qnty Indications Ordering Date Provider Furosemide 1 by mouth every 30tabs Yoly 09/02/2019 20mg Tablets other day or as Juan Garcia directed Sildenafil Citrate take 1 tablet by 30tabs F52.21 David Gonzales 03/23/2019 20mg mouth as directed Juan Putnam Tablets 30 minutes before sexual activity Triamcinolone apply once a day 15gm David Gonzales 03/16/2019 Acetonide for up to 2 weeks Juan Putnam 0.1% Cream Lipitor Take 1 tab daily 30tabs E78.5 Flakito Lubin MD 12/30/2018 20mg Tablets Blood Pressure bp machine for 1units I10 David Gonzales 04/26/2018 Monitor home bp monitoring Juan Putnam Digital/Manual Inflate Misc Custom Shoe For R Large shoe for r M79.671 David Gonzales 01/26/2017 Foot foot to accomodate Juan Putnam brace Metoprolol Succinate one tab daily Unknown ER 50mg Tablets ER 24HR Amiodarone HCL once daily Kevyn, 200mg MD Wale Tablets Amlodipine Besylate 1 by mouth every Unknown 5mg day Tablets Olanzapine 1 po at bedtime Unknown 5mg Tablets Divalproex Sodium 3 tabs daily in Unknown 500mg the morning Tablets DR Tramadol HCL 1 by mouth every 6 Z48.89 Unknown 50mg hours as needed Tablets pain Immunizations CPT Code Status Date Vaccine Lot # [id number] Given 01/19/2018 Pneumococcal Conjugate Vaccine 13 Valent For [id number] Intramuscular Use Vital Signs Date Vital Result Comment 03/23/2019 11:49am Height 73 inches 6'1" Weight 225.00 lb Heart Rate 83 /min BP Systolic Sitting 183 mmHg BP Diastolic Sitting 113 mmHg BMI (Body Mass Index) 29.7 kg/m2 03/16/2019 3:26pm Height 73 inches 6'1" Weight 225.00 lb Heart Rate 69 /min BP Systolic Sitting 157 mmHg BP Diastolic Sitting 92 mmHg BMI (Body Mass Index) 29.7 kg/m2 Results Test Acquired Date Facility Test Result H/L Range Note Comp Metabolic 08/28/2019 [facility] Sodium 142 mmol/L Normal 135-[address] [place] [address] [phone] Potassium 4.0 mmol/L Normal 3.5-5.0 Chloride 109 mmol/L Normal 101-111 Co2 Carbon Dioxide 28 mmol/L Normal 22-32 Anion Gap 5 mmol/L Normal 2-11 Glucose 152 mg/dL High 70-100 Blood Urea Nitrogen 26 mg/dL High 6-24 Creatinine 1.23 mg/dL High 0.67-1.17 BUN/Creatinine Ratio 21.1 High 8-20 Calcium 9.2 mg/dL Normal 8.6-10.3 Total Protein 6.6 g/dL Normal 6.4-8.9 Albumin 3.4 g/dL Normal 3.2-5.2 Globulin 3.2 g/dL Normal 2-4 Albumin/Globulin Ratio 1.1 Normal 1-3 Total Bilirubin 0.50 mg/dL Normal 0.2-1.0 Alkaline Phosphatase 102 U/L Normal 34-104 Alt 22 U/L Normal 7-52 Ast 21 U/L Normal 13-39 Egfr Non- 58.5 >60 Egfr 70.8 >60 1 Laboratory 08/28/2019 [facility] Troponin-I 0.05 Critical < 0.03 2 test finding 101 (TnI) ng/[place] [address] [phone] B-Type Natriuretic Peptide BNP 659 pg/mL High <=100 Lactic Acid 1.6 mmol/L Normal 0.5-2.0 3 CBC Auto 08/28/2019 [facility] White Blood 8.1 10^3/uL Normal 3.5-10.[address] [place] [address] [phone] Red Blood Count 3.58 10^6/uL Low 4.18-5.48 Hemoglobin 11.0 g/dL Low 14.0-18.0 Hematocrit 34 % Low 42-52 Mean Corpuscular Volume 94 fL Normal 80-94 Mean Corpuscular Hemoglobin 31 pg Normal 27-31 Mean Corpuscular HGB Conc 33 g/dL Normal 31-36 Red Cell Distribution Width 15 % Normal 10-15 Platelet Count 196 10^3/uL Normal 150-450 Mean Platelet Volume 8.3 fL Normal 7.4-10.4 Abs Neutrophils 6.8 10^3/uL Normal 1.5-7.7 Abs Lymphocytes 0.8 10^3/uL Low 1.0-4.8 Abs Monocytes 0.4 10^3/uL Normal 0-0.8 Abs Eosinophils 0.2 10^3/uL Normal 0-0.6 Abs Basophils 0.0 10^3/uL Normal 0-0.2 Abs Nucleated RBC 0.0 10^3/uL Granulocyte % 83.8 % Lymphocyte % 9.4 % Monocyte % 4.4 % Eosinophil % 1.9 % Basophil % 0.5 % Nucleated Red Blood Cells % 0.1 CBC Auto 08/09/2019 [facility] White Blood 6.0 10^3/uL Normal 3.5-10.[address] [place] [address] [phone] Red Blood Count 3.85 10^6/uL Low 4.18-5.48 Hemoglobin 11.7 g/dL Low 14.0-18.0 Hematocrit 35 % Low 42-52 Mean Corpuscular Volume 91 fL Normal 80-94 Mean Corpuscular Hemoglobin 30 pg Normal 27-31 Mean Corpuscular HGB Conc 33 g/dL Normal 31-36 Red Cell Distribution Width 15 % Normal 10-15 Platelet Count 282 10^3/uL Normal 150-450 Mean Platelet Volume 7.5 fL Normal 7.4-10.4 Abs Neutrophils 3.9 10^3/uL Normal 1.5-7.7 Abs Lymphocytes 1.2 10^3/uL Normal 1.0-4.8 Abs Monocytes 0.5 10^3/uL Normal 0-0.8 Abs Eosinophils 0.3 10^3/uL Normal 0-0.6 Abs Basophils 0.1 10^3/uL Normal 0-0.2 Abs Nucleated RBC 0.0 10^3/uL Granulocyte % 65.8 % Lymphocyte % 20.2 % Monocyte % 8.6 % Eosinophil % 4.5 % Basophil % 0.9 % Nucleated Red Blood Cells % 0.0 Basic Metabolic 08/09/2019 [facility] Sodium 140 mmol/L Normal 135-[address] [place] [address] [phone] Potassium 3.9 mmol/L Normal 3.5-5.0 Chloride 105 mmol/L Normal 101-111 Co2 Carbon Dioxide 28 mmol/L Normal 22-32 Anion Gap 7 mmol/L Normal 2-11 Glucose 89 mg/dL Normal 70-100 Blood Urea Nitrogen 22 mg/dL Normal 6-24 Creatinine 1.29 mg/dL High 0.67-1.17 BUN/Creatinine Ratio 17.1 Normal 8-20 Calcium 9.3 mg/dL Normal 8.6-10.3 Egfr Non- 55.6 >60 Egfr 67.2 >60 4 Laboratory test 08/09/2019 [facility] B-Type 174 pg/mL High <= [address] [address] Peptide BNP [phone] 1 Because ethnic data is not always [...] 5 Kidney failure <15 (or dialysis) 2 Result TnIDx:0.05 Called to [id number] at: 23:14:27 by:[id number] Read back by: [id number] Troponin-I testing on Plasma Separator Tubes (PST) has a known false positive rate of 0.20-0.40%. All positive troponins reflex immediately to secondary confirmatory testing. Using the [employer] DxI 800 Access Immunoassay systems, the 99th percentile upper reference limit was demonstrated to be < 0.03 ng/mL. [address] [facility] Severe Sepsis and Septic Shock Management Bundle Measure requires all lactic acids initially measuring >2.0 mmol/L be repeated. 4 Because ethnic data is not always readily [...] 15-29 5 Kidney failure <15 (or dialysis) Procedures Date Code Description Status 08/29/2019 27154 ECHO Transthorasic Realtime 2D W Doppler & Color Flow Completed Hosp 05/25/2019 [id number] Diabetic Retinal Eye Exam Completed 12/06/2018 [id number] Diabetic Retinal Eye Exam Completed Medical Devices Description No Information Available Encounters Type Date Location Provider Dx Diagnosis Office Visit 08/30/2019 [facility] Valentina Pete, J96.01 Acute respiratory 1:51p Assoc,pc DO failure with Hospitalists hypoxia I50.9 Heart failure, unspecified I48.91 Unspecified atrial fibrillation J18.9 Pneumonia, unspecified organism Office Visit 08/29/2019 [facility] Jamie I50.23 Acute on chronic 1:51p Assoc,pc Jessica Rodriguez systolic Hospitalists (congestive) heart failure I48.91 Unspecified atrial fibrillation I25.10 Athscl heart disease of [place] coronary artery w/o ang pctrs Office Visit 03/23/2019 11:40a Justine Gonzales Q87.43 Marfan's syndrome Medicine - Juan Putnam with skeletal Ccmob manifestation F52.21 Male erectile disorder M79.673 Pain in unspecified foot Office Visit 03/16/2019 3:00p Justine Gonzales R35.0 Frequency of Medicine - Maximo Putnam M.D. micturition Assessments Date Code Description Provider 08/30/2019 Ken96.01 Acute respiratory failure with hypoxia Valentina Pete, DO 08/30/2019 I50.9 Heart failure, unspecified Valentina Pete, DO 08/30/2019 I48.91 Unspecified atrial fibrillation Valentina Pete, DO 08/30/2019 J18.9 Pneumonia, unspecified organism Valentina Pete, DO 08/29/2019 I50.23 Acute on chronic systolic (congestive) Jamie Rodriguez N.P. heart failure 08/29/2019 I50.9 Heart failure, unspecified Cuba Napoles M.D. 08/29/2019 I48.91 Unspecified atrial fibrillation Jamie Rodriguez, N.P. 08/29/2019 I25.10 Atherosclerotic heart disease of [place] Jamie Rodriguez N.P. coronary artery with 03/23/2019 Q87.43 Marfan's syndrome with skeletal David Putnam M.D. manifestation 03/23/2019 F52.21 Male erectile disorder David Putnam M.D. 03/23/2019 M79.673 Pain in unspecified foot David Putnam M.D. 03/16/2019 R35.0 Frequency of micturition David Putnam M.D. Plan of Treatment 03/23/2019 - David Putnam M.D.Q87.43 Marfan's syndrome with skeletal manifestationComments:Chronic foot pains from flat arches; stable with podiatry evals. Parking permit form lnxzcuffqR67.21 Male erectile disorderNew Medication :Sildenafil Citrate 20 mg - take 1 tablet by mouth as directed 30 minutes before sexual activityComments:Sildenafil Rx ok'd by pt's tectonophysicist; Rx sent inM79.673 Pain in unspecified foot Functional Status Description No Information Available Mental Status Description No Information Available Referrals Description No Information Available
--- OUTSIDE RECORDS SUMMARY | 2019-09-22 20:53 | XMS REPORT | Continuity of Care Document ---
:1950 External Reference #:[id number] Author Name Wale Bagley MD (transmitted by agent of provider Cata BOCANEGRA) Address [address] [address] [place] [address] Care Team Providers Name Role Phone Lauryn Saha - Specialist Care Team Information Barrel Header Unavailable Problems Active Problems Provider Date Atrial fibrillation Wale Bagley MD Onset: 09/04/2013 Hyperlipidemia Wale Bagley MD Onset: 01/26/2011 Essential hypertension Wale Bagley MD Onset: 01/27/2010 Coronary arteriosclerosis Wale Bagley MD Onset: 03/20/2009 Social History Type Date Description Comments Sex Unknown Tobacco Use Start: Unknown Never Smoked Cigarettes Tobacco Use Start: Unknown End: Unknown Patient is a former smoker Smoking Status Reviewed: 07/14/17 Patient is a former smoker Allergies, Adverse Reactions, Alerts Description No Known Drug Allergies Medications Active Medications SIG Qnty Indications Ordering Provider Date Toprol XL 1/2 by mouth 90tabs Wale Hassan 09/14/2019 50mg Tablets every day MD Kevyn ER 24HR Furosemide 1 by mouth every 90tabs Wale Hassan 09/14/2019 20mg Tablets other day MD Kevyn Amlodipine Besylate 1 by mouth every 90tabs Cristiane Meehan, 07/23/2017 5mg day [employer]ING [employer] INS[employer]OR Tablets Amiodarone HCL 1 by mouth every 90tabs Cristiane Meehan, 12/28/2016 200mg day [employer]ING [employer] INS[employer]OR Tablets Lorazepam 1 by mouth AT Unknown 1mg Tablets bedtime and needed for anxiety Tylenol 8 Hour 1 by mouth q4hrs Unknown 650mg needed for Tablets ER pain Immunizations Description No Information Available Vital Signs Date Vital Result Comment 09/14/2018 11:07am Height 72 inches 6'0" Weight 254.00 lb BMI (Body Mass Index) 34.4 kg/m2 BP Systolic Left Arm 130 mmHg BP Diastolic Left Arm 80 mmHg Heart Rate 56 /min Reg 07/23/2017 10:04am Height 72 inches 6'0" Weight 220.25 lb BMI (Body Mass Index) 29.9 kg/m2 BP Systolic 158 mmHg 168/96 right BP Diastolic 96 mmHg 168/96 right Heart Rate 47 /min Results Description No Information Available Procedures Description No Information Available Medical Devices Description No Information Available Encounters Type Date Location Provider Dx Diagnosis Office Visit 09/14/2019 [facility] Cardiology AT Wale Hassan I25.10 Athscl heart 10:15a Nikki Bagley MD disease of [place] coronary artery w/o ang pctrs I48.0 Paroxysmal atrial fibrillation I11.0 Hypertensive heart disease with heart failure I50.32 Chronic diastolic (congestive) heart failure Z95.5 Presence of coronary angioplasty implant and graft Assessments Date Code Description Provider 09/14/2019 I25.10 Atherosclerotic heart disease of [place] Wale Bagley MD coronary artery without angina pectoris 09/14/2019 I48.0 Paroxysmal atrial fibrillation Wale Bagley MD 09/14/2019 I11.0 Hypertensive heart disease with heart Wale Bagley MD failure 09/14/2019 I50.32 Chronic diastolic (congestive) heart failure Wale Bagley MD 09/14/2019 Z95.5 Presence of coronary angioplasty implant and Wale Bagley MD graft Plan of Treatment Future Appointment(s):09/18/2020 1:15 pm - Wale Baglye MD at [facility] Cardiology AT Tjotveev24/02/2020 - Wale Bagley MDI25.10 Atherosclerotic heart disease of [place] coronary artery without angina epftdbbtH01.0 Paroxysmal atrial bvadkdkmrtmeZ39.0 Hypertensive heart disease with heart yxzzdobU71.32 Chronic diastolic (congestive) heart tdjyjsrD59.5 Presence of coronary angioplasty implant and graft Functional Status Description No Information Available Mental Status Description No Information Available Referrals Description No Information Available
--- OUTSIDE RECORDS SUMMARY | 2019-09-22 20:53 | XMS REPORT | Continuity of Care Document ---
:1950 External Reference #:[id number] Author Name Jamie Rodriguez N.P. (transmitted by agent of provider Leena Barrett) Address [address], [place] [address] Care Team Providers Name Role Phone David Putnam III, MD - Internal Care Team Information [employer] Agent Team Member Hubert Whitehead MD - Gastroenterology Care Team Information [employer] Agent Team Member Mark Mendoza MD - Gastroenterology Care Team Information [employer] Agent Team Member Visiting Nurse Services [facility] - Care Team Information [employer] Agent Team Member [facility] - Pain Care Team Information [employer] Agent Team Member [phone] Problems Active Problems Provider Date Cervical spondylosis [...] CPT Code Status Date Vaccine Lot # [id number] Given 01/19/2018 Pneumococcal Conjugate Vaccine 13 Valent For [id number] Intramuscular Use Vital Signs Date Vital Result [...] Result H/L Range Note Comp Metabolic 08/28/2019 [facility] Sodium 142 mmol/L Normal 135-[address] [place] [address] [phone] Potassium 4.0 mmol/L Normal 3.5-5.0 Chloride 109 [...] >60 Egfr 70.8 >60 1 Laboratory 08/28/2019 [facility] Troponin-I 0.05 Critical < 0.03 2 test finding 101 (TnI) ng/[place] [address] [phone] B-Type Natriuretic Peptide BNP 659 pg/mL High <=100 Lactic Acid 1.6 mmol/L Normal 0.5-2.0 3 CBC Auto 08/28/2019 [facility] White Blood 8.1 10^3/uL Normal 3.5-10.[address] [place] [address] [phone] Red Blood Count 3.58 10^6/uL Low 4.18-5.48 [...] Blood Cells % 0.1 CBC Auto 08/09/2019 [facility] White Blood 6.0 10^3/uL Normal 3.5-10.[address] [place] [address] [phone] Red Blood Count 3.85 10^6/uL Low 4.18-5.48 [...] Blood Cells % 0.0 Basic Metabolic 08/09/2019 [facility] Sodium 140 mmol/L Normal 135-[address] [place] [address] [phone] Potassium 3.9 mmol/L Normal 3.5-5.0 Chloride 105 mmol/L Normal 101-111 Co2 Carbon Dioxide 28 mmol/L Normal 22-32 Anion Gap 7 mmol/L Normal 2-11 Glucose 89 mg/dL Normal 70-100 Blood Urea Nitrogen 22 mg/dL Normal 6-24 Creatinine 1.29 mg/dL High 0.67-1.17 BUN/Creatinine Ratio 17.1 Normal 8-20 Calcium 9.3 mg/dL Normal 8.6-10.3 Egfr Non- 55.6 >60 Egfr 67.2 >60 4 Laboratory test 08/09/2019 [facility] B-Type 174 pg/mL High <= [address] [place] [address] Peptide BNP [phone] 1 Because ethnic data is not always [...] (or dialysis) 2 Result TnIDx:0.05 Called to [id number] at: 23:14:27 by:[id number] Read back by: [id number] Troponin-I testing on Plasma Separator Tubes (PST) has a known false positive rate of 0.20-0.40%. All positive troponins reflex immediately to secondary confirmatory testing. Using the [employer] DxI 800 Access Immunoassay systems, the 99th percentile upper reference limit was demonstrated to be < 0.03 ng/mL. 3 [facility] Severe Sepsis and Septic Shock Management [...] dialysis) Procedures Date Code Description Status 08/29/2019 93204 ECHO Transthorasic Realtime 2D W Doppler & Color Flow Completed Hosp 05/25/2019 [id number] Diabetic Retinal Eye Exam Completed 12/06/2018 [id number] Diabetic Retinal Eye Exam Completed Medical Devices Description No Information Available Encounters Type Date Location Provider Dx Diagnosis Office Visit 08/29/2019 [facility], I50.23 Acute on chronic 1:51p Assoc,pc N.P. systolic Hospitalists (congestive) heart failure I48.91 Unspecified atrial fibrillation I25.10 Athscl heart disease of [place] coronary artery w/o ang pctrs Office Visit 03/23/2019 11:40a Justine Internal David Gonzales Q87.43 Marfan's syndrome Medicine - Juan Putnam with skeletal Ccmob manifestation F52.21 Male erectile disorder M79.673 Pain in unspecified foot Office Visit 03/16/2019 3:00p Justine Gonzales R35.0 Frequency of Medicine - Maximo Putnam M.D. micturition Assessments Date Code Description Provider 08/30/2019 J96.01 Acute respiratory failure with hypoxia Valentina Pete, DO 08/30/2019 I50.9 Heart failure, unspecified Valentina Pete, DO 08/30/2019 I48.91 Unspecified atrial fibrillation Valentina Pete, DO 08/30/2019 J18.9 Pneumonia, unspecified organism Valentina Pete, DO 08/29/2019 I50.23 Acute on chronic systolic (congestive) Jamie Rodriguez N.P. heart failure 08/29/2019 I50.9 Heart failure, unspecified Cuba Napoles M.D. 08/29/2019 I48.91 Unspecified atrial fibrillation Jamie Rodriguez N.P. 08/29/2019 I25.10 Atherosclerotic heart disease of [place] Jamie Rodriguez N.P. coronary artery with 03/23/2019 [...] stable with podiatry evals. Parking permit form tjjjiihcpC95.21 Male erectile disorderNew Medication :Sildenafil Citrate 20 mg - take 1 tablet by mouth as directed 30 minutes before sexual activityComments:Sildenafil Rx ok'd by pt's water quality technician; Rx sent inM79.673 Pain in unspecified foot Functional Status Description No Information Available Mental Status Description No Information Available Referrals Description No Information Available
--- OUTSIDE RECORDS SUMMARY | 2019-09-22 20:53 | XMS REPORT | Continuity of Care Document ---
:1950 External Reference #:[id number] Author Name Uma Carter N.P. (transmitted by agent of provider Leena Barrett) Address [address], [place] [address] Care Team Providers Name Role Phone David Putnam III, MD - Internal Care Team Information [place]dy Mill Worker Medicine Hubert Meehan MD - Gastroenterology Care Team Information [place] Worker Mark Mendoza MD - Gastroenterology Care Team Information [place] Worker Visiting Nurse Services [facility] - Care Team Information [place] Worker [facility] - Pain Care Team Information [place] Worker [phone] Problems Active Problems Provider Date Cervical spondylosis with myelopathy Kishor Finn M.D. Onset: 11/01/2015 Convalescence after surgery Kishor Finn M.D. Onset: 12/11/2015 Neck pain Kishor Finn M.D. Onset: 02/10/2016 Atrial fibrillation Jame Chiu M.D. Onset: 04/16/2018 Acute systolic heart failure Jame Chiu M.D. Onset: 04/16/2018 Bipolar disorder Jame Chiu M.D. Onset: 04/16/2018 Chronic ischemic heart disease Jaem Chiu M.D. Onset: 04/16/2018 Acute respiratory failure [...] CPT Code Status Date Vaccine Lot # [id number] Given 01/19/2018 Pneumococcal Conjugate Vaccine 13 Valent For [id number] Intramuscular Use Vital Signs Date Vital Result [...] Test Result H/L Range Note Laboratory test 09/08/2019 [facility] B-Type 77 pg/mL <=100 finding [address] [facility] [place] [address] Peptide BNP [phone] Basic Metabolic 09/08/2019 [facility] Sodium 134 mmol/L Low 135-145 Panel [address] [place] [address] [phone] Potassium 4.4 mmol/L Normal 3.5-5.0 Chloride 96 mmol/L Low 101-111 Co2 Carbon Dioxide 32 mmol/L Normal 22-32 Anion Gap 6 mmol/L Normal 2-11 Glucose 89 mg/dL Normal 70-100 Blood Urea Nitrogen 29 mg/dL High 6-24 Creatinine 1.33 mg/dL High 0.67-1.17 BUN/Creatinine Ratio 21.8 High 8-20 Calcium 9.6 mg/dL Normal 8.6-10.3 Egfr Non- 53.5 >60 Egfr 64.7 >60 1 Laboratory test 09/08/2019 [facility] Magnesium 2.0 mg/dL Normal 1.9-2.7 finding [address] [place] [address] [phone] Comp Metabolic 08/28/2019 [facility] Sodium 142 mmol/L Normal 135-145 Panel 101 [place], [place] [id number] [phone] Potassium 4.0 mmol/L Normal 3.5-5.0 Chloride 109 [...] Egfr Non- 58.5 >60 Egfr 70.8 >60 2 Laboratory 08/28/2019 [facility] Troponin-I 0.05 Critical < 0.03 3 test finding [address] (TnI) ng/[place] [address] [phone] B-Type Natriuretic Peptide BNP 659 pg/mL High <=100 Lactic Acid 1.6 mmol/L Normal 0.5-2.0 4 CBC Auto 08/28/2019 [facility] White Blood 8.1 10^3/uL Normal 3.5-10.[address] [place] [address] [phone] Red Blood Count 3.58 10^6/uL Low 4.18-5.48 [...] Blood Cells % 0.1 CBC Auto 08/09/2019 [facility] White Blood 6.0 10^3/uL Normal 3.5-10.[address] [place] [address] [phone] Red Blood Count 3.85 10^6/uL Low 4.18-5.48 [...] Blood Cells % 0.0 Basic Metabolic 08/09/2019 [facility] Sodium 140 mmol/L Normal 135-[address] [place] [address] [phone] Potassium 3.9 mmol/L Normal 3.5-5.0 Chloride 105 mmol/L Normal 101-111 Co2 Carbon Dioxide 28 mmol/L Normal 22-32 Anion Gap 7 mmol/L Normal 2-11 Glucose 89 mg/dL Normal 70-100 Blood Urea Nitrogen 22 mg/dL Normal 6-24 Creatinine 1.29 mg/dL High 0.67-1.17 BUN/Creatinine Ratio 17.1 Normal 8-20 Calcium 9.3 mg/dL Normal 8.6-10.3 Egfr Non- 55.6 >60 Egfr 67.2 >60 5 Laboratory test 08/09/2019 [facility] B-Type 174 pg/mL High <= [address] [place] [address] Peptide BNP [phone] 1 Because ethnic data is not always [...] 5 Kidney failure <15 (or dialysis) 2 Because ethnic data is not always [...] Kidney failure <15 (or dialysis) 3 Result TnIDx:0.05 Called to [id number] at: 23:14:27 by:[id number] Read back by: [id number] Troponin-I testing on Plasma Separator Tubes (PST) has a known false positive rate of 0.20-0.40%. All positive troponins reflex immediately to secondary confirmatory testing. Using the [employer] DxI 800 Access Immunoassay systems, the 99th percentile upper reference limit was demonstrated to be < 0.03 ng/mL. 4 [facility] Severe Sepsis and Septic Shock Management Bundle Measure requires all lactic acids initially measuring >2.0 mmol/L be repeated. 5 Because ethnic data is not always readily [...] dialysis) Procedures Date Code Description Status 08/29/2019 82430 ECHO Transthorasic Realtime 2D W Doppler & Color Flow Completed Hosp 05/25/2019 [id number] Diabetic Retinal Eye Exam Completed 12/06/2018 [id number] Diabetic Retinal Eye Exam Completed Medical Devices Description No Information Available Encounters Type Date Location Provider Dx Diagnosis Office Visit 08/31/2019 [facility] Uma Carter, J96.01 Acute respiratory 1:52p Assoc,pc N.P. failure with Hospitalists hypoxia I50.9 Heart failure, unspecified J18.9 Pneumonia, unspecified organism I48.91 Unspecified atrial fibrillation Office Visit 08/30/2019 1:51p [facility] Valentina J96.01 Acute respiratory Assoc,jodee Pete, DO failure with Hospitalists hypoxia I50.9 Heart failure, unspecified I48.91 Unspecified atrial fibrillation J18.9 Pneumonia, unspecified organism Office Visit 08/29/2019 [facility] Jamie I50.23 Acute on chronic 1:51p Assoc,jodee Rodriguez, N.P. 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 micturition Assessments Date Code Description Provider 09/06/2019 I50.23 Acute on chronic systolic (congestive) David Putnam M.D. heart failure 09/06/2019 I25.10 Atherosclerotic heart disease of [place] David Putnam M.D. coronary artery with 08/31/2019 J96.01 Acute respiratory failure with hypoxia Uma Raul, N.P. 08/31/2019 I50.9 Heart failure, unspecified Uma Raul, N.P. 08/31/2019 J18.9 Pneumonia, unspecified organism Uma Raul, N.P. 08/31/2019 I48.91 Unspecified atrial fibrillation Uma Raul, N.P. 08/30/2019 J96.01 Acute respiratory failure with hypoxia Valentina Pete, DO 08/30/2019 I50.9 Heart failure, unspecified Valentina Senner, DO 08/30/2019 I48.91 Unspecified atrial fibrillation Valentina Pete, DO 08/30/2019 J18.9 Pneumonia, unspecified organism Valentina Pete, DO 08/29/2019 I50.23 Acute on chronic systolic (congestive) Jamie Rodriguez, N.P. heart failure 08/29/2019 I50.9 Heart failure, unspecified Cuba Napoles M.D. 08/29/2019 I48.91 Unspecified atrial fibrillation Jamie Rodriguez, N.P. 08/29/2019 I25.10 Atherosclerotic heart disease of [place] Jamie Michael, N.P. coronary artery with 03/23/2019 Q87.43 Marfan's syndrome with skeletal David Putnam M.D. manifestation 03/23/2019 F52.21 Male erectile disorder David Putnam M.D. 03/23/2019 M79.673 Pain in unspecified foot David Putnam M.D. 03/16/2019 R35.0 Frequency of micturition David Putnam M.D. Plan of Treatment 09/06/2019 - David Putnam M.D.I50.23 Acute on chronic systolic (congestive ) heart failureComments:[facility] eval for acute CHF sx after a high salt meal with recurrent weight gain today again after a saltingestion. Importance of salt avoidance stressed to pt. Advised he take an additional half dose ofLasix today and continue to monitor daily weights. BPs lower with Lasix Rx and heart rates occ slower than pt's baseline; advised reducing Metoprolol to 1/2 tab daily. Continue to monitor HR and BP.Recheck labs on Lasix RxI25.10 Atherosclerotic heart disease of [place] coronary artery withComments:As above. Echo stable; cardiology video recheck pending. Check labs and adjust Metoprolol Rx as above. Functional Status Description No Information Available Mental Status Description No Information Available Referrals Description No Information Available
--- OUTSIDE RECORDS SUMMARY | 2019-09-22 20:53 | XMS REPORT | Continuity of Care Document ---
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 Problems Active Problems Provider Date Atrial [...] every 90tabs Cristiane Meehan, 07/23/2017 5mg day HUMAN RESOURCE ADVISER Tablets Amiodarone HCL 1 by mouth every 90tabs Cristiane Meehan, 12/28/2016 200mg day HUMAN RESOURCE ADVISER Tablets Lorazepam 1 by mouth AT Unknown [...] Medical Devices Description No Information Available Encounters Description No Information Available Assessments Date Code Description Provider 09/14/2019 I25.10 Atherosclerotic heart disease of [place] Wale Bagley MD coronary artery without angina pectoris 09/14/2019 I48.0 Paroxysmal atrial fibrillation Wale Bagley MD 09/14/2019 I10 Essential (primary) hypertension Wale Bagley MD 09/14/2019 I50.32 Chronic diastolic (congestive) heart failure Wale Bagley MD Plan of Treatment No Information Available Functional Status Description No Information Available Mental Status Description No Information Available Referrals Description No Information Available
--- OUTSIDE RECORDS SUMMARY | 2019-09-22 20:53 | XMS REPORT | Continuity of Care Document ---
:1950 External Reference #:[id number] Author Name Cuba Napoles M.D. (transmitted by agent of provider Sari Wiseman) Address [address] [place] [address] Care Team Providers Name Role Phone David Putnam III, MD - Internal Care Team Information Administrative Support Clerk Medicine Hubert Meehan MD - Gastroenterology Care Team Information Administrative Support Clerk Mark Mendoza MD - Gastroenterology Care Team Information Administrative Support Clerk Visiting Nurse Services [facility] - Care Team Information Administrative Support Clerk [phone] [facility] - Pain Care Team Information Administrative Support Clerk [phone] Problems Active Problems Provider Date Cervical spondylosis [...] Reviewed: 03/23/19 Patient is a former Quit 2002; smoked smoker for 15 years Exercise Type/Frequency [...] CPT Code Status Date Vaccine Lot # [id number] Given 01/19/2018 Pneumococcal Conjugate Vaccine 13 Valent For [id number] Intramuscular Use Vital Signs Date Vital Result [...] Result H/L Range Note Comp Metabolic 08/28/2019 [facility] Sodium 142 mmol/L Normal 135-[address] [place] [address] [phone] Potassium 4.0 mmol/L Normal 3.5-5.0 Chloride 109 [...] >60 Egfr 70.8 >60 1 Laboratory 08/28/2019 [facility] Troponin-I 0.05 Critical < 0.03 2 test finding 101 (TnI) ng/[place] [address] [phone] B-Type Natriuretic Peptide BNP 659 pg/mL High <=100 Lactic Acid 1.6 mmol/L Normal 0.5-2.0 3 CBC Auto 08/28/2019 [facility] White Blood 8.1 10^3/uL Normal 3.5-10.[address] [place] [address] [phone] Red Blood Count 3.58 10^6/uL Low 4.18-5.48 [...] Blood Cells % 0.1 CBC Auto 08/09/2019 [facility] White Blood 6.0 10^3/uL Normal 3.5-10.[address] [place] [address] [phone] Red Blood Count 3.85 10^6/uL Low 4.18-5.48 [...] Blood Cells % 0.0 Basic Metabolic 08/09/2019 [facility] Sodium 140 mmol/L Normal 135-[address] [place] [address] [phone] Potassium 3.9 mmol/L Normal 3.5-5.0 Chloride 105 mmol/L Normal 101-111 Co2 Carbon Dioxide 28 mmol/L Normal 22-32 Anion Gap 7 mmol/L Normal 2-11 Glucose 89 mg/dL Normal 70-100 Blood Urea Nitrogen 22 mg/dL Normal 6-24 Creatinine 1.29 mg/dL High 0.67-1.17 BUN/Creatinine Ratio 17.1 Normal 8-20 Calcium 9.3 mg/dL Normal 8.6-10.3 Egfr Non- 55.6 >60 Egfr 67.2 >60 4 Laboratory test 08/09/2019 [facility] B-Type 174 pg/mL High <= [address] [place] [address] Peptide BNP [phone] 1 Because ethnic data is not always [...] (or dialysis) 2 Result TnIDx:0.05 Called to [id number] at: 23:14:27 by:[id number] Read back by: [id number] Troponin-I testing on Plasma Separator Tubes (PST) has a known false positive rate of 0.20-0.40%. All positive troponins reflex immediately to secondary confirmatory testing. Using the [employer] DxI 800 Access Immunoassay systems, the 99th percentile upper reference limit was demonstrated to be < 0.03 ng/mL. 3 [facility] Severe Sepsis and Septic Shock Management Bundle [...] dialysis) Procedures Date Code Description Status 08/29/2019 51656 ECHO Transthorasic Realtime 2D W Doppler & Color Flow Completed Hosp 05/25/2019 [id number] Diabetic Retinal Eye Exam Completed 12/06/2018 [id number] Diabetic Retinal Eye Exam Completed Medical Devices Description No Information Available Encounters Type Date Location Provider Dx Diagnosis Office Visit 03/23/2019 [facility] David Gonzales Q87.43 Marfan's syndrome 11:40a Medicine - Maximo Putnam M.D. with skeletal manifestation F52.21 Male erectile disorder M79.673 Pain in unspecified foot Office Visit 03/16/2019 3:00p [facility] David Gonzales R35.0 Frequency of Medicine - Maximo Putnam M.D. micturition Assessments Date Code Description Provider 08/29/2019 I50.9 Heart failure, unspecified Cuba Napoles M.D. 03/23/2019 Q87.43 Marfan's syndrome with skeletal David Putnam M.D. manifestation 03/23/2019 F52.21 Male erectile disorder David Putnam M.D. 03/23/2019 M79.673 Pain in unspecified foot David Putnam M.D. 03/16/2019 R35.0 Frequency of micturition David Putnam M.D. Plan of Treatment 03/23/2019 - David Putnam M.D.Q87.43 Marfan's syndrome with skeletal manifestationComments:Chronic foot pains from flat arches; stable with podiatry evals. 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
--- OUTSIDE RECORDS SUMMARY | 2019-09-22 20:53 | XMS REPORT | Continuity of Care Document ---
:1950 External Reference #:[id number] Author Name David Putnam M.D. Address [address], [place] [address] Care Team Providers Name Role Phone David Putnam III, MD - Internal Care Team Information Youth Development Professional [phone] Medicine Hubert Meehan MD - Gastroenterology Care Team Information Youth Development Professional [phone] Mark Mendoza MD - Gastroenterology Care Team Information Youth Development Professional Visiting Nurse Services [facility] - Care Team Information Youth Development Professional [facility] - Pain Care Team Information Youth Development Professional [phone] Problems Active Problems Provider Date Cervical spondylosis [...] CPT Code Status Date Vaccine Lot # [id number] Given 01/19/2018 Pneumococcal Conjugate Vaccine 13 Valent For [id number] Intramuscular Use Vital Signs Date Vital Result [...] Result H/L Range Note Comp Metabolic 08/28/2019 [facility] Sodium 142 mmol/L Normal 135-[address] [place] [address] [phone] Potassium 4.0 mmol/L Normal 3.5-5.0 Chloride 109 [...] >60 Egfr 70.8 >60 1 Laboratory 08/28/2019 [facility] Troponin-I 0.05 Critical < 0.03 2 test finding (TnI) ng/[place] [address] [phone] B-Type Natriuretic Peptide BNP 659 pg/mL High <=100 Lactic Acid 1.6 mmol/L Normal 0.5-2.0 3 CBC Auto 08/28/2019 [facility] White Blood 8.1 10^3/uL Normal 3.5-10.[address] [place] [address] [phone] Red Blood Count 3.58 10^6/uL Low 4.18-5.48 [...] Blood Cells % 0.1 CBC Auto 08/09/2019 [facility] White Blood 6.0 10^3/uL Normal 3.5-10.[address] Count [place], [place] [address] [phone] Red Blood Count 3.85 10^6/uL Low 4.18-5.48 [...] Blood Cells % 0.0 Basic Metabolic 08/09/2019 [facility] Sodium 140 mmol/L Normal 135-[address] [place] [address] [phone] Potassium 3.9 mmol/L Normal 3.5-5.0 Chloride 105 mmol/L Normal 101-111 Co2 Carbon Dioxide 28 mmol/L Normal 22-32 Anion Gap 7 mmol/L Normal 2-11 Glucose 89 mg/dL Normal 70-100 Blood Urea Nitrogen 22 mg/dL Normal 6-24 Creatinine 1.29 mg/dL High 0.67-1.17 BUN/Creatinine Ratio 17.1 Normal 8-20 Calcium 9.3 mg/dL Normal 8.6-10.3 Egfr Non- 55.6 >60 Egfr 67.2 >60 4 Laboratory test 08/09/2019 [facility] B-Type 174 pg/mL High <= [address] [address] Peptide BNP [phone] 1 Because ethnic data is not always [...] (or dialysis) 2 Result TnIDx:0.05 Called to [id number] at: 23:14:27 by:[id number] Read back by: [id number] Troponin-I testing on Plasma Separator Tubes (PST) has a known false positive rate of 0.20-0.40%. All positive troponins reflex immediately to secondary confirmatory testing. Using the [employer] DxI 800 Access Immunoassay systems, the 99th percentile upper reference limit was demonstrated to be < 0.03 ng/mL. 3 [facility] Severe Sepsis and Septic Shock Management Bundle [...] dialysis) Procedures Date Code Description Status 08/29/2019 79729 ECHO Transthorasic Realtime 2D W Doppler & Color Flow Completed Hosp 05/25/2019 [id number] Diabetic Retinal Eye Exam Completed 12/06/2018 [id number] Diabetic Retinal Eye Exam Completed Medical Devices Description No Information Available Encounters Type Date Location Provider Dx Diagnosis Office Visit 09/06/2019 [facility] Internal David Putnam, I50.23 Acute on chronic 3:00p Mariia Marsh M.D. systolic (congestive) heart failure I25.10 Athscl heart disease of [place] coronary artery w/o ang pctrs Office Visit 08/30/2019 1:51p [facility] Valentina J96.01 Acute respiratory Assoc,jodee Pete, DO failure with Hospitalists hypoxia I50.9 Heart failure, unspecified I48.91 Unspecified atrial fibrillation J18.9 Pneumonia, unspecified organism Office Visit 08/29/2019 [facility] Jamie I50.23 Acute on chronic 1:51p Assoc,jodee Rodriguez N.PMercy systolic Hospitalists (congestive) heart failure I48.91 Unspecified atrial fibrillation I25.10 Athscl heart disease of [place] coronary artery w/o ang pctrs Office Visit 03/23/2019 11:40a [facility] Internal David Gonzales Q87.43 Marfan's syndrome Mariia Putnam M.D. with skeletal Ccmob manifestation F52.21 Male erectile disorder M79.673 Pain in unspecified foot Office Visit 03/16/2019 3:00p Technology Trainer Internal David Gonzales R35.0 Frequency of Medicine - Maximo Putnam M.D. micturition Assessments Date Code Description Provider 09/06/2019 I50.23 Acute on chronic systolic (congestive) David Putnam M.D. heart failure 09/06/2019 I25.10 Atherosclerotic heart disease of [place] David Putnam M.D. coronary artery with 08/31/2019 J96.01 Acute respiratory failure with hypoxia Uma Raul, N.P. 08/31/2019 I50.9 Heart failure, unspecified Uma Raul, N.P. 08/31/2019 J18.9 Pneumonia, unspecified organism Uma Raul, N.P. 08/31/2019 I48.91 Unspecified atrial fibrillation Uma Raul, N.P. 08/30/2019 J96.01 Acute respiratory failure with hypoxia Valentina Sendesmond, DO 08/30/2019 I50.9 Heart failure, unspecified Valentina Senner, DO 08/30/2019 I48.91 Unspecified atrial fibrillation Valentina Senner, DO 08/30/2019 J18.9 Pneumonia, unspecified organism Valentina Senner, DO 08/29/2019 I50.23 Acute on chronic systolic (congestive) Jamie Michael, N.P. heart failure 08/29/2019 I50.9 Heart failure, unspecified Cuba Napoles M.D. 08/29/2019 I48.91 Unspecified atrial fibrillation Jamie Rodriguez, N.P. 08/29/2019 I25.10 Atherosclerotic heart disease of [place] Jamiethiago Rodriguez, N.P. coronary artery with 03/23/2019 Q87.43 Marfan's syndrome with skeletal David Putnam M.D. manifestation 03/23/2019 F52.21 Male erectile disorder David Putnam M.D. 03/23/2019 M79.673 Pain in unspecified foot David Putnam M.D. 03/16/2019 R35.0 Frequency of micturition David Putnam M.D. Plan of Treatment 09/06/2019 - David E. Indy, M.D.I50.23 Acute on chronic systolic (congestive ) heart failureComments:[facility] [place] acute CHF sx after a [...] on Lasix RxI25.10 Atherosclerotic heart disease of [place] coronary artery withComments:As above. Echo stable; cardiology video recheck pending. Check labs and adjust Metoprolol Rx as above. Functional Status Description No Information Available Mental Status Description No Information Available Referrals Description No Information Available
--- OUTSIDE RECORDS SUMMARY | 2019-09-22 20:53 | XMS REPORT | Continuity of Care Document ---
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 Unavailable Problems Active Problems Provider Date Atrial [...] Qnty Indications Ordering Provider Date Toprol XL 1 by mouth every 90tabs Wale Hassan 07/23/2017 50mg Tablets day MD Kevyn ER 24HR Amlodipine Besylate 1 by mouth every 90tabs Cristiane Meehan, 07/23/2017 5mg day KENNEL WORKER Tablets Amiodarone HCL 1 by mouth every 90tabs Cristiane Meehan, 12/28/2016 200mg day KENNEL WORKER Tablets Altace 1 by mouth every 90caps Cristiane Meehan, 10/04/2015 5mg Capsules day KENNEL WORKER Depakote 2 by mouth every Unknown 500mg Tablets day DR Lorazepam 1 by mouth AT Unknown 1mg [...] Available Encounters Description No Information Available Assessments Description No Information Available Plan of Treatment No Information Available Functional Status Description No Information Available Mental Status Description No Information Available Referrals Description No Information Available
--- OUTSIDE RECORDS SUMMARY | 2019-09-22 20:53 | XMS REPORT | Continuity of Care Document ---
:1950 External Reference #:[id number] Author Name David Putnam M.D. (transmitted by agent of provider Chelsie Zamora) Address [address] [facility] [facility], [place] [address] Care Team Providers Name Role Phone David Putnam III, MD - Internal Care Team Information [employer] Chain Dyeing Machine Operator Medicine Hubert Meehan MD - Gastroenterology Care Team Information Long Chain Dyeing Machine Operator Mark Mendoza MD - Gastroenterology Care Team Information Long Chain Dyeing Machine Operator Visiting Nurse Services [facility] - Care Team Information [employer] Chain D[employer]ing [employer] [facility] - Pain Care Team Information Long Chain Dyeing Machine Operator [phone] Problems Active Problems Provider Date Cervical spondylosis [...] CPT Code Status Date Vaccine Lot # [id number] Given 01/19/2018 Pneumococcal Conjugate Vaccine 13 Valent For [id number] Intramuscular Use Vital Signs Date Vital Result [...] Result H/L Range Note Laboratory test 09/08/2019 [facility] B-Type 77 pg/mL <=100 finding [address] [facility] [place] [address] Peptide BNP [phone] Basic Metabolic 09/08/2019 [facility] Sodium 134 mmol/L Low 135-145 Panel [address] [place] [address] [phone] Potassium 4.4 mmol/L Normal 3.5-5.0 Chloride 96 mmol/L Low 101-111 Co2 Carbon Dioxide 32 mmol/L Normal 22-32 Anion Gap 6 mmol/L Normal 2-11 Glucose 89 mg/dL Normal 70-100 Blood Urea Nitrogen 29 mg/dL High 6-24 Creatinine 1.33 mg/dL High 0.67-1.17 BUN/Creatinine Ratio 21.8 High 8-20 Calcium 9.6 mg/dL Normal 8.6-10.3 Egfr Non- 53.5 >60 Egfr 64.7 >60 1 Laboratory test 09/08/2019 [facility] Magnesium 2.0 mg/dL Normal 1.9-2.7 finding [address] [place] [address] [phone] Comp Metabolic 08/28/2019 [facility] Sodium 142 mmol/L Normal 135-145 Panel [address] [place] [address] [phone] Potassium 4.0 mmol/L Normal 3.5-5.0 Chloride 109 [...] >60 Egfr 70.8 >60 2 Laboratory 08/28/2019 [facility] Troponin-I 0.05 Critical < 0.03 3 test finding [address] (TnI) ng/[place] [address] [phone] B-Type Natriuretic Peptide BNP 659 pg/mL High <=100 Lactic Acid 1.6 mmol/L Normal 0.5-2.0 4 CBC Auto 08/28/2019 [facility] White Blood 8.1 10^3/uL Normal 3.5-10.[address] [place] [address] [phone] Red Blood Count 3.58 10^6/uL Low 4.18-5.48 [...] Blood Cells % 0.1 CBC Auto 08/09/2019 [facility] White Blood 6.0 10^3/uL Normal 3.5-10.[address] [place] [address] [phone] Red Blood Count 3.85 10^6/uL Low 4.18-5.48 [...] Blood Cells % 0.0 Basic Metabolic 08/09/2019 [facility] Sodium 140 mmol/L Normal 135-[address] [place] [address] [phone] Potassium 3.9 mmol/L Normal 3.5-5.0 Chloride 105 mmol/L Normal 101-111 Co2 Carbon Dioxide 28 mmol/L Normal 22-32 Anion Gap 7 mmol/L Normal 2-11 Glucose 89 mg/dL Normal 70-100 Blood Urea Nitrogen 22 mg/dL Normal 6-24 Creatinine 1.29 mg/dL High 0.67-1.17 BUN/Creatinine Ratio 17.1 Normal 8-20 Calcium 9.3 mg/dL Normal 8.6-10.3 Egfr Non- 55.6 >60 Egfr 67.2 >60 5 Laboratory test 08/09/2019 [facility] B-Type 174 pg/mL High <= [address] [place] [address] Peptide BNP [phone] 1 Because ethnic data is not always [...] (or dialysis) 3 Result TnIDx:0.05 Called to [id number] at: 23:14:27 by:[id number] Read back by: [id number] Troponin-I testing on Plasma Separator Tubes (PST) has a known false positive rate of 0.20-0.40%. All positive troponins reflex immediately to secondary confirmatory testing. Using the [employer] DxI 800 Access Immunoassay systems, the 99th percentile upper reference limit was demonstrated to be < 0.03 ng/mL. 4 [facility] Severe Sepsis and Septic Shock Management Bundle [...] dialysis) Procedures Date Code Description Status 08/29/2019 70920 ECHO Transthorasic Realtime 2D W Doppler & Color Flow Completed Hosp 05/25/2019 [id number] Diabetic Retinal Eye Exam Completed 12/06/2018 [id number] Diabetic Retinal Eye Exam Completed Medical Devices Description No Information Available Encounters Type Date Location Provider Dx Diagnosis Office Visit 09/06/2019 [facility] Internal David Putnam, I50.23 Acute on chronic 3:00p Mariia Marsh M.D. systolic (congestive) heart failure I25.10 [place]scl heart disease of [place] coronary artery w/o ang pctrs Office Visit 08/31/2019 1:52p [facility] Uma Carter, J96.01 Acute respiratory Assoc,pc N.P. failure with Hospitalists hypoxia I50.9 Heart failure, unspecified J18.9 Pneumonia, unspecified organism I48.91 Unspecified atrial fibrillation Office Visit 08/30/2019 1:51p [facility] Valentina J96.01 Acute respiratory Assoc,jodee Pete, DO failure with Hospitalists hypoxia I50.9 Heart failure, unspecified I48.91 Unspecified atrial fibrillation J18.9 Pneumonia, unspecified organism Office Visit 08/29/2019 [facility] Jamie I50.23 Acute on chronic 1:51p Assoc,pc Michael N.P. systolic Hospitalists (congestive) heart failure I48.91 Unspecified atrial fibrillation I25.10 Athscl heart disease of [place] coronary artery w/o ang pctrs Office Visit 03/23/2019 11:40a [facility] Internal David Gonzales Q87.43 Marfan's syndrome Mariia Putnam M.D. with skeletal Ccmob manifestation F52.21 Male erectile disorder M79.673 Pain in unspecified foot Assessments Date Code Description Provider 09/06/2019 I50.23 Acute on chronic systolic (congestive) David Putnam M.D. heart failure 09/06/2019 I25.10 Atherosclerotic heart disease of [place] David Putnam M.D. coronary artery with 08/31/2019 [...] DO 08/30/2019 I48.91 Unspecified atrial fibrillation Valentina Sendesmond, DO 08/30/2019 J18.9 Pneumonia, unspecified organism Valentina Senner, DO 08/29/2019 I50.23 Acute on chronic systolic (congestive) Jamie Rodriguez, N.P. heart failure 08/29/2019 I50.9 Heart failure, unspecified Cuba Napoles M.D. 08/29/2019 I48.91 Unspecified atrial fibrillation Jamiethiago Rodriguez, N.P. 08/29/2019 I25.10 Atherosclerotic heart disease of [place] Jamie Rodriguez, N.P. coronary artery with 03/23/2019 Q87.43 Marfan's syndrome with skeletal David Putnam M.D. manifestation 03/23/2019 F52.21 Male erectile disorder David Putnam M.D. 03/23/2019 M79.673 Pain in unspecified foot David Putnam M.D. Plan of Treatment 09/06/2019 - David Putnam M.D.I50.23 Acute on chronic systolic (congestive ) heart failureComments:[facility] eval for acute CHF sx after a [...] on Lasix RxI25.10 Atherosclerotic heart disease of [place] coronary artery withComments:As above. Echo stable; cardiology video recheck pending. Check labs and adjust Metoprolol Rx as above. Functional Status Description No Information Available Mental Status Description No Information Available Referrals Description No Information Available
--- NOTE | 2019-09-22 21:08 | ED ---
Shortness of Breath - HPI Summary HPI Summary: 69 year old M presenting to [facility] via EMS with a chief complaint of acute sudden episode of SOB. Patient was lying in bed earlier when he started to have hiccups. Patient thought he was experiencing a gastric related issue and states he was unable to catch his breath due to mucous in his throat. He experienced SOB, nausea and vomiting shortly afterwards. Patient denies nausea, chest pain and abdominal pain at the moment. He visited the ER on 08/29/2019 due to a similar chief complaint. Patient tested negative for COVID19 during this visit. Patient states he has felt well ever since. Patient has a PMHx of Marfans, bipolar disorder, chronic pain, CHF, atrial fibrillation, CAD, HTN, and ADHD. Patient has a PSHx of Watchmans procedure, cardiac catheter, C-spine fusion, and an ablation. Patient denies smoking, marijuana use, and alcohol use. He has a FHx of cardiac related issues and cancer. - History of Current Complaint Chief Complaint: EDShortnessOfBreath Time Seen by Provider: 09/22/19 20:26 Hx Obtained From: Patient Onset/Duration: Lasting Hours Dyspnea At: Rest Aggravating Factors: Nothing Alleviating Factors: Spontaneous Resolution Associated Signs & Symptoms: Negative - Allergy/Home Medications Allergies/Adverse Reactions: Allergies Allergy/AdvReac Type Severity Reaction Status Date / Time ramipril Allergy Anaphylatic Verified 08/09/19 18:19 Shock Home Medications: Home Medications OLANzapine TAB* [Zyprexa 5 MG TAB*] 5 mg PO BEDTIME PRN 30 Days #30 tab [Rx Confirmed 09/22/19] Acetaminophen TAB* [Tylenol TAB*] 650 mg PO Q4H PRN tab 04/21/18 [Rx Confirmed 09/22/19] Divalproex ER TAB(*) [Depakote ER TAB(*)] 1,500 mg PO QAM 05/22/18 [History Confirmed 09/22/19] Metoprolol Succinate 50 mg PO DAILY 06/25/18 [History Confirmed 09/22/19] Atorvastatin* [Lipitor 20 MG*] 20 mg PO DAILY 08/09/19 [History Confirmed ] Modafinil TAB* [Provigil TAB*] 200 mg PO DAILY 08/09/19 [History Confirmed 09/21] amLODIPine TAB* [Norvasc 5 mg TAB*] 5 mg PO DAILY 08/09/19 [History Confirmed ] Amiodarone TAB* [Cordarone Tab*] 100 - 200 mg PO DAILY 08/28/19 [History Confirmed 09/22/19] Furosemide TAB* [Lasix TAB*] 20 mg PO MOWEFR #30 tab 09/01/19 [Rx Confirmed 04/02] PMH/Surg Hx/FS Hx/Imm Hx Endocrine/Hematology History: Denies: Hx Anticoagulant Therapy, Hx Diabetes Cardiovascular History: Reports: Hx Atrial Fibrillation, Hx Congenital Heart Disease - murmur, Hx Congestive Heart Failure, Hx Coronary Artery Disease - Stent x2 2007, Hx Hypercholesterolemia, Hx Hypertension, Other Cardiovascular Problems/Disorders - cardiomyopathy. Marfan's syndrome Denies: Hx Angina - denies, Hx Myocardial Infarction, Hx Pacemaker/ICD, Hx Peripheral Vascular Disease, Hx Valvular Heart Disease Respiratory History: Reports: Hx Pulmonary Embolism - possible, Other Respiratory Problems/Disorders - SOB D/T WEAKNESS Denies: Hx Asthma, Hx Chronic Obstructive Pulmonary Disease (COPD), Hx Pneumonia GI History: Reports: Hx Hiatal Hernia, Hx Ulcer, Other GI Disorders - abdominal hernia History: Denies: Hx Benign Prostatic Hyperplasia - maybe, Hx Dialysis, Hx Renal Disease Musculoskeletal History: Reports: Hx Arthritis, Hx Back Problems - Chronic Neck Pain/Marfans Syndrome, Other Musculoskeletal History - Marfan's Syndrome Sensory History: Reports: Hx Macular Degeneration - lense implants x2, Hx Vision Problem - Pt states he has "blurry vision" Denies: Hx Contacts or Glasses, Hx Hearing Aid Opthamlomology History: Reports: Hx Macular Degeneration - lense implants x2, Hx Vision Problem - Pt states he has "blurry vision" Denies: Hx Contacts or Glasses Neurological History: Reports: Hx Headaches, Hx Nerve Disease, Other Neuro Impairments/Disorders - MARFAN'S SYNDROME Denies: Hx Dementia, Hx Seizures Psychiatric History: Reports: Hx Anxiety, Hx Attention Deficit Hyperactivity Disorder, Hx Depression, Hx Panic Disorder - agorophobia, Hx Inpatient Treatment , Hx Community Mental Health Tx, Hx Bipolar Disorder, Hx Substance Abuse, Other Psychiatric Issues/Disorders Denies: Hx Eating Disorder, Hx of Violent Episodes Against Others - Cancer History Hx Chemotherapy: No Hx Radiation Therapy: No - Surgical History Surgical History: Yes Surgery Procedure, Year, and Place: left knee surgery - DEEP CUT - STITCHES , left wrist , abdominal hernia x2. Watchman procedure 2017 - MR CONDITIONAL - UP TO 3T, SPATIAL GRADIENT FIELD -2500 GAUSS/cm OR LESS, MAX CHELE -LIMITED 2.0W/ kg FOR 15 MINS, NORMAL MODE - MRI. CSP - SCRAPPING/NO HARDWARE. STENTS X2 2008. CARDIAC ABLATION Hx Anesthesia Reactions: No - Immunization History Date of Tetanus Vaccine: utd Date of Influenza Vaccine: utd Immunizations Up to Date: Yes Infectious Disease History: No Infectious Disease History: Reports: Hx Shingles Denies: Hx Clostridium Difficile, Hx Hepatitis, Hx Human Immunodeficiency Virus (HIV), Hx of Known/Suspected MRSA, Hx Tuberculosis, History Other Infectious Disease, Traveled Outside the [place] in Last 30 Days - Family History Known Family History: Positive: Cardiac Disease - father had Afib and VA, Other - mother had colon CA - Social History Alcohol Use: Rare Alcohol Amount: 2x month Hx Substance Use: No Substance Use Type: Reports: None Hx Tobacco Use: Yes Smoking Status (MU): Former Smoker Type: Cigarettes Amount Used/How Often: 5-7/day Length of Time of Smoking/Using Tobacco: 16 years total Have You Smoked in the Last Year: No - Additional Comments History Additional Comments: atrial fibrillation, CHF,CAD, HLD, HTN, Watchman procedure, cardiac ablation, Marfan's syndrome, PE, headaches, anxiety, depression, ADHD, panic disorder, bipolar disorder, former smoker Review of Systems - ROS Summary Review of Systems Summary: Home Medications Medication Instructions Recorded Confirmed Type OLANzapine TAB* [Zyprexa 5 MG TAB*] 5 mg PO BEDTIME PRN 30 Days #30 tab 09/22/19 Rx Acetaminophen TAB* [Tylenol TAB*] 650 mg PO Q4H PRN tab 04/21/18 09/22/19 Rx Divalproex ER TAB(*) [Depakote ER 1,500 mg PO QAM 05/22/18 09/22/19 History TAB(*)] Metoprolol Succinate 50 mg PO DAILY 06/25/18 09/22/19 History Atorvastatin* [Lipitor 20 MG*] 20 mg PO DAILY 08/09/19 09/22/19 History Modafinil TAB* [Provigil TAB*] 200 mg PO DAILY 08/09/19 09/22/19 History amLODIPine TAB* [Norvasc 5 mg TAB*] 5 mg PO DAILY 08/09/19 09/22/19 History Amiodarone TAB* [Cordarone Tab*] 100 - 200 mg PO DAILY 08/28/19 09/22/19 History Furosemide TAB* [Lasix TAB*] 20 mg PO MOWEFR #30 tab 09/01/19 09/22/19 Rx Constitutional: Other - Hiccups. Positive: Other - Subjective mucus complaint. Negative: Chest Pain - Patient experienced nausea earlier but this symptom has since subsided. Positive: Shortness Of Breath Positive: Vomiting - Patient had a vomitting episode earlier. , Nausea - Patient experienced nausea earlier, however he has not experienced nausea since.. Negative: Abdominal Pain All Other Systems Reviewed And Are Negative: Yes Physical Exam - Summary Physical Exam Summary: General: Well-developed, Well-nourished MALE. No acute distress. HEENT: Normocephalic, Atraumatic. Eyes: Conjuctiva normal, PERRL. Oropharynx: Clear, mucous membranes moist, (-) exudates. Poor dentition. Neck: Soft, FROM, (-) lymphadenopathy, (-) thyromegaly, (-) JVD. Cardiovascular: Normal sinus rhythm, (-) murmur. Lungs: Decreased breathing sounds bilaterally with bibasilar crackles (-) wheezes, (-) rales, (-) rhonchi. Abdomen: Soft, non-tender, non-distended, (-) organomegaly, normal bowel sounds. Back: (-) CVA tenderness Extremities: Trace edema. Skin: Warm, dry, (-) rash. Neuro: Alert and oriented x3, moves all extremities equally. No ataxia. No gait disturbance. No sensory deficit. Normal strength, normal sensation. Psychiatric: Mood normal, affect normal Triage Information Reviewed: Yes Vital Signs On Initial Exam: Initial Vitals Temp Pulse Resp BP Pulse Ox 97.6 F 63 19 140/100 100 09/22/19 20:15 09/22/19 20:15 09/22/19 20:15 09/22/19 20:15 09/22/19 20:15 Vital Signs Reviewed: Yes Procedures - Sedation Patient Received Moderate/Deep Sedation with Procedure: No Diagnostics - Vital Signs Vital Signs Temp Pulse Resp BP Pulse Ox 04/10/20 20:31 63 19 140/100 100 09/22/19 20:30 67 13 100 09/22/19 20:15 97.6 F 63 19 140/100 100 - Laboratory Result Diagrams: 09/22/19 21:12 09/22/19 21:12 Lab Statement: Any lab studies that have been ordered have been reviewed, and results considered in the medical decision making process. - Radiology CXR Radiology Interpretation Completed By: ED Physician Summary of Radiographic Findings: Increased interstitial markings consistent with fluid overload. This CXR has been reviewed and interpreted by Dr. Jansen pending official report. - CT Chest Thorax CTA CT Interpretation Completed By: Radiologist Summary of CT Findings: IMPRESSION: 1. There is significant bibasilar and bilateral dependent atelectatic change,. cannot exclude a component of dependent pneumonitis in the right lower lobe. 2. No visible acute pulmonary embolism. This impression has been reviewed by Dr. Jansen. - EKG 2111 Cardiac Rate: NL EKG Rhythm: Sinus Rhythm Summary of EKG Findings: EKG at 2111 reveals normal sinus rhythm with a rate of [address] elevation in V2 and V3. This EKG was reviewed and interpreted by Dr. Jansen. 0150 Cardiac Rate: NL EKG Rhythm: Sinus Rhythm Summary of EKG Findings: EKG at 0150 reveals normal sinus rhythm with a rate of 61 bpm and no acute ST elevation. This EKG was reviewed and interpreted by Dr. Jansen. Re-Evaluation - Re-Evaluation First Eval Re-Evaluation Time: 03:20 Comment: I discussed all results. Discussed all symptoms that warrant return to the ED. Course/Dx - Course Course Of Treatment: 61-year-old male presents from home by ambulance with sudden onset of chest pain. He states he was lying in bed tonight and suddenly started having hiccups. He was eating rice at the time. He states it felt more gastric related. He felt like he had a chunk of mucus in his throat and couldn't breathe. He had nausea at the time and then had significant episode of vomiting. Patient was discharged from the hospital a couple weeks ago. He had CHF exacerbation and shortness of breath at that time. Was tested for Covid -19 and was negative. He states since being home from the hospital he essentially felt quite well. Was doing fine until tonight. He has not had fevers. No further cough. Patient does have significant medical history. He is feeling better upon arrival. Was found to be quite hypoxic initially and was put on 15 L. He is 100% pulse ox upon arrival and is oxygen is turned down to 5 L. Patient has bibasilar crackles and lower extremity edema. No other significant findings on physical exam. Workup demonstrates negative EKG for STEMI. Troponins remained in his usual range from 0.05 to 0.06. No significant changes. His BNP is elevated. Extra fluid on x-ray. Patient given Lasix with good urine output. Elevated d-dimer. CT of the chest is negative. Patient is feeling quite well. Discharged to home. Follow up with PCP. Follow-up sooner for any worsening symptoms. - Diagnoses Provider Diagnoses: Chest pain Discharge ED - Sign-Out/Discharge Documenting (check all that apply): Patient Departure - Discharged to home. - Discharge Plan Condition: Stable Disposition: HOME Patient Education Materials: Chest Pain (ED) Referrals: David Putnam MD [Primary Care Provider] - 3 Days Additional Instructions: Please follow up with your primary care physician within three days. Please return to the Emergency Department for any new or worsening symptoms. - Billing Disposition and Condition Condition: STABLE Disposition: Home - Attestation Statements Document Initiated by Dannie: Yes Documenting Scribe: Marisela Hawk Provider For Whom Dannie is Documenting (Include Credential): Lilliana Jansen MD Scribe Attestation: Cheryl العراقي Natalie George, scribed for Lilliana Jansen MD on 09/23/19 at 0523. Scribe Documentation Reviewed: Yes Provider Attestation: The documentation as recorded by the scribe, Marisela Hawk accurately reflects the service I personally performed and the decisions made by me, Lilliana Jansen MD Status of Scribe Document: Viewed
[2019-09-22 21:18] LABS: ABS Basophils 0.1 10^3/ul (0-0.2); ABS Eosinophils 0.1 10^3/ul (0-0.6); ABS Monocytes 0.4 10^3/ul (0-0.8); ABS Neutrophils 3.8 10^3/ul (1.5-7.7); Eosinophil % 2.2 %; Hematocrit 35 % (42-52); Hemoglobin 11.6 g/dL (14.0-18.0); Lymphocyte % 18.2 %; Mean Corpuscular HGB Conc 34 g/dL (31-36); Mean Corpuscular Hemoglobin 31 pg (27-31); Mean Corpuscular Volume 92 fL (80-94); Nucleated Red Blood Cells % 0.1; Platelet Count 198 10^3/uL (150-450); Red Blood Count 3.77 10^6 /uL (4.18-5.48); Red Cell Distribution Width 15 % (10-15); White Blood Count 5.4 10^3/uL (3.5-10.8)
[2019-09-22 21:35] LABS: ALT 20 U/L (7-52); AST 26 U/L (13-39); Albumin 3.9 g/dL (3.2-5.2); Albumin/Globulin Ratio 1.3 (1-3); Alkaline Phosphatase 86 U/L (34-104); Anion Gap 5 mmol/L (2-11); BUN/Creatinine Ratio 16.7 (8-20); Blood Urea Nitrogen 24 mg/dL (6-24); CO2 Carbon Dioxide 32 mmol/L (22-32); Calcium 9.3 mg/dL (8.6-10.3); Chloride 103 mmol/L (101-111); EGFR Non-African American 48.8 (>60); Glucose 88 mg/dL (70-100); Potassium 3.7 mmol/L (3.5-5.0); Sodium 140 mmol/L (135-145); Total Protein 6.9 g/dL (6.4-8.9)
[2019-09-22 21:39] LABS: Troponin I 0.05 ng/mL (<0.03)
[2019-09-22 21:41] LABS: INR 0.97 (0.82-1.09)
[2019-09-22] MEDS ORDERED: Furosemide IV* 10 MG/ML 10 ML VIAL (100 MG) IV ONE (21:42)
[2019-09-23 00:16] LABS: Troponin I 0.06 ng/mL (<0.03)
[2019-09-23] MEDS ORDERED: Iodixanol* (CONTRAST) 320 MG/ML 100 ML SDV IV ONE (00:39)
[2019-09-23 03:21] LABS: Troponin I 0.05 ng/mL (<0.03)
[2019-09-23 04:11] VITALS: BP 110/67
== END 2019-09-23 04:11 | disposition home or self-care (01) ==
LOC: ED 20:13
DX: R07.9 Chest pain, unspecified (principal); I48.91 Unspecified atrial fibrillation; I11.0 Hypertensive heart disease with heart failure; I50.9 Heart failure, unspecified; I25.10 Atherosclerotic heart disease of native coronary artery without angina pectoris; E78.00 Pure hypercholesterolemia, unspecified; F41.9 Anxiety disorder, unspecified; F90.9 Attention-deficit hyperactivity disorder, unspecified type; F31.9 Bipolar disorder, unspecified; Z95.5 Presence of coronary angioplasty implant and graft; Z87.891 Personal history of nicotine dependence; Z79.899 Other long term (current) drug therapy; Z88.8 Allergy status to other drugs, medicaments and biological substances
CPT/HCPCS: 36415; 71045; 71275; 80053; 83605; 83880; 84484; 85025; 85379; 85610; 93005; 96374; 99284; J1940; Q9967

== ENCOUNTER 2020-01-20 13:32 | Inpatient (IN) ==
[2020-01-20 14:44] LABS: ABS Eosinophils 0.2 10^3/ul (0-0.6); ABS Lymphocytes 1.1 10^3/ul (1.0-4.8); ABS Monocytes 0.4 10^3/ul (0-0.8); ABS Neutrophils 3.8 10^3/ul (1.5-7.7); Eosinophil % 3.7 %; Hematocrit 35 % (42-52); Hemoglobin 11.6 g/dL (14.0-18.0); Lymphocyte % 20.1 %; Mean Corpuscular HGB Conc 33 g/dL (31-36); Mean Corpuscular Hemoglobin 31 pg (27-31); Mean Corpuscular Volume 92 fL (80-94); Platelet Count 255 10^3/uL (150-450); Red Cell Distribution Width 14 % (10-15); White Blood Count 5.5 10^3/uL (3.5-10.8)
[2020-01-20 14:54] LABS: Urine Appearance Clear; Urine Bilirubin Negative (Negative); Urine Blood Negative (Negative); Urine Color Yellow; Urine Glucose 1+(50 mg/dL) (Negative); Urine Ketones Negative (Negative); Urine Nitrite Negative (Negative); Urine Protein 1+(30 mg/dL) (Negative); Urine Specific Gravity 1.019 (1.010-1.030); Urine Urobilinogen Negative (Negative)
[2020-01-20 14:59] LABS: Urine Bacteria Absent (Absent); Urine Red Blood Cell Trace(0-2/hpf) (Absent); Urine Squamous Epithelial Cell Present (Absent); Urine White Blood Cell Trace(0-5/hpf) (Absent)
[2020-01-20 15:35] LABS: TSH Ultra Thyroid Stim Horm 2.36 mcIU/mL (0.34-5.60)
[2020-01-20 15:44] LABS: Anion Gap 9 mmol/L (2-11); CO2 Carbon Dioxide 28 mmol/L (22-32); Calcium 9.5 mg/dL (8.6-10.3); Chloride 104 mmol/L (101-111); Potassium 4.3 mmol/L (3.5-5.0); Sodium 141 mmol/L (135-145)
[2020-01-20 15:50] LABS: ALT 20 U/L (7-52); AST 27 U/L (13-39); Albumin/Globulin Ratio 1.2 (1-3); Alkaline Phosphatase 95 U/L (34-104); BUN/Creatinine Ratio 15.8 (8-20); Blood Urea Nitrogen 25 mg/dL (6-24); EGFR Non-African American 43.8 (>60); Globulin 3.4 g/dL (2-4); Glucose 100 mg/dL (70-100); Total Protein 7.4 g/dL (6.4-8.9)
[2020-01-20 15:59] LABS: Acetaminophen < 15 mcg/mL; Alcohol, S < 10 mg/dL (<10); Salicylate < 2.50 mg/dL (<30)
[2020-01-20 16:05] LABS: Urine Benzodiazepine Screen None Detected (None Detect); Urine Cannabinoids Screen Presumptive Positive (None Detect); Urine Opiates Screen None Detected (None Detect)
[2020-01-20] MEDS ORDERED: Al Hydrox/Mg Hydrox/Simet LIQ 30 ML UDC PO PRN (19:24)
[2020-01-20] MEDS ORDERED: diPHENhydraMINE IV 50 MG/ML 1 ml VIAL (BENADRYL) IM ONE (19:30)
[2020-01-20] MEDS ORDERED: Ziprasidone IM 20 mg VIAL 1 ml VIAL IM ONE (19:30)
[2020-01-21] MEDS: Vitamin THERAPEUTIC TAB PO SCH (14:02)
[2020-01-22] MEDS: Vitamin THERAPEUTIC TAB PO SCH (09:45)
[2020-01-22 12:11] LABS: ABS Basophils 0.1 10^3/ul (0-0.2); ABS Eosinophils 0.2 10^3/ul (0-0.6); ABS Monocytes 0.4 10^3/ul (0-0.8); ABS Neutrophils 3.7 10^3/ul (1.5-7.7); Eosinophil % 3.6 %; Hematocrit 32 % (42-52); Hemoglobin 10.6 g/dL (14.0-18.0); Lymphocyte % 18.2 %; Mean Corpuscular HGB Conc 33 g/dL (31-36); Mean Corpuscular Hemoglobin 31 pg (27-31); Mean Corpuscular Volume 92 fL (80-94); Platelet Count 196 10^3/uL (150-450); Red Blood Count 3.43 10^6 /uL (4.18-5.48); Red Cell Distribution Width 15 % (10-15); White Blood Count 5.3 10^3/uL (3.5-10.8)
[2020-01-22 12:30] LABS: BUN/Creatinine Ratio 18.8 (8-20); Calcium 8.9 mg/dL (8.6-10.3); Potassium 3.9 mmol/L (3.5-5.0)
[2020-01-22] MEDS ORDERED: Iodixanol (CONTRAST) 320 MG/ML 100 ML SDV IV ONE (14:21)
[2020-01-22 16:41] LABS: Activated Partial Thrombo Time 31.8 seconds (26.0-38.0); INR 0.98 (0.82-1.09)
[2020-01-22] MEDS: Heparin 5000 UNITS/ML 1 mL VIAL SUBCUT SCH (22:02)
[2020-01-23 05:47] LABS: ABS Eosinophils 0.2 10^3/ul (0-0.6); ABS Lymphocytes 1.2 10^3/ul (1.0-4.8); ABS Monocytes 0.4 10^3/ul (0-0.8); ABS Neutrophils 3.6 10^3/ul (1.5-7.7); Hematocrit 35 % (42-52); Hemoglobin 11.9 g/dL (14.0-18.0); Lymphocyte % 22.1 %; Mean Corpuscular HGB Conc 34 g/dL (31-36); Mean Corpuscular Hemoglobin 31 pg (27-31); Mean Corpuscular Volume 90 fL (80-94); Mean Platelet Volume 7.9 fL (7.4-10.4); Nucleated Red Blood Cells % 0.1; Platelet Count 236 10^3/uL (150-450); Red Cell Distribution Width 14 % (10-15); White Blood Count 5.5 10^3/uL (3.5-10.8)
[2020-01-23] MEDS: Heparin 5000 UNITS/ML 1 mL VIAL SUBCUT SCH ×3 (05:55→20:30)
[2020-01-23 06:06] LABS: BUN/Creatinine Ratio 18.6 (8-20); Calcium 9.1 mg/dL (8.6-10.3); EGFR African American 74.3 (>60); EGFR Non-African American 61.4 (>60); HDL Cholesterol 42.2 mg/dL; Potassium 3.6 mmol/L (3.5-5.0)
[2020-01-23] MEDS: Vitamin THERAPEUTIC TAB PO SCH (08:11)
[2020-01-24] MEDS: Heparin 5000 UNITS/ML 1 mL VIAL SUBCUT SCH ×3 (08:09→21:45)
[2020-01-24] MEDS: Vitamin THERAPEUTIC TAB PO SCH (11:04)
[2020-01-25 07:54] LABS: ABS Basophils 0.1 10^3/ul (0-0.2); ABS Eosinophils 0.2 10^3/ul (0-0.6); ABS Lymphocytes 1.9 10^3/ul (1.0-4.8); ABS Monocytes 0.6 10^3/ul (0-0.8); ABS Neutrophils 3.5 10^3/ul (1.5-7.7); Hematocrit 37 % (42-52); Hemoglobin 12.7 g/dL (14.0-18.0); Lymphocyte % 30.4 %; Mean Corpuscular HGB Conc 35 g/dL (31-36); Mean Corpuscular Hemoglobin 31 pg (27-31); Mean Corpuscular Volume 90 fL (80-94); Mean Platelet Volume 7.5 fL (7.4-10.4); Platelet Count 299 10^3/uL (150-450); Red Blood Count 4.09 10^6 /uL (4.18-5.48); Red Cell Distribution Width 15 % (10-15); White Blood Count 6.2 10^3/uL (3.5-10.8)
[2020-01-25] MEDS: Heparin 5000 UNITS/ML 1 mL VIAL SUBCUT SCH (08:48)
[2020-01-25] MEDS: Vitamin THERAPEUTIC TAB PO SCH (09:42)
[2020-01-26] MEDS: Vitamin THERAPEUTIC TAB PO SCH (09:13)
[2020-01-27] MEDS: Vitamin THERAPEUTIC TAB PO SCH (09:17)
[2020-01-28] MEDS: Vitamin THERAPEUTIC TAB PO SCH (09:36)
[2020-01-29] MEDS: Vitamin THERAPEUTIC TAB PO SCH (09:50)
[2020-01-30] MEDS: Vitamin THERAPEUTIC TAB PO SCH (09:11)
[2020-01-30 09:23] VITALS: BP 150/76
== END 2020-01-30 11:00 | disposition home or self-care (01) | DRG 885 ==
LOC: ED 13:32 → BSU 21:16 → MEDTELE 01-22 12:31 → BSU 01-23 14:51
PROVIDERS: ADMIT Psychiatry & Neurology Addiction Psychiatry; ATTEND Psychiatry & Neurology Psychiatry

== ENCOUNTER 2020-02-04 10:39 | Observation (INO) ==
[2020-02-04] MEDS ORDERED: NS 0.9% 1000 ml BAG 1,000 ML IV ONE (10:49)
[2020-02-04 11:19] LABS: ABS Basophils 0.1 10^3/ul (0-0.2); ABS Eosinophils 0.2 10^3/ul (0-0.6); ABS Lymphocytes 1.1 10^3/ul (1.0-4.8); ABS Monocytes 0.4 10^3/ul (0-0.8); ABS Neutrophils 4.2 10^3/ul (1.5-7.7); Eosinophil % 3.3 %; Hematocrit 32 % (42-52); Hemoglobin 10.7 g/dL (14.0-18.0); Mean Corpuscular HGB Conc 33 g/dL (31-36); Mean Corpuscular Hemoglobin 31 pg (27-31); Mean Corpuscular Volume 91 fL (80-94); Mean Platelet Volume 7.4 fL (7.4-10.4); Nucleated Red Blood Cells % 0.1; Platelet Count 231 10^3/uL (150-450); Red Blood Count 3.52 10^6 /uL (4.18-5.48); Red Cell Distribution Width 15 % (10-15); White Blood Count 5.9 10^3/uL (3.5-10.8)
[2020-02-04 11:47] LABS: INR 1.01 (0.82-1.09)
[2020-02-04 12:00] LABS: Anion Gap 8 mmol/L (2-11); BUN/Creatinine Ratio 14.8 (8-20); Blood Urea Nitrogen 20 mg/dL (6-24); CO2 Carbon Dioxide 29 mmol/L (22-32); Calcium 8.9 mg/dL (8.6-10.3); Chloride 103 mmol/L (101-111); EGFR African American 63.6 (>60); EGFR Non-African American 52.6 (>60); Glucose 139 mg/dL (70-100); Magnesium 1.8 mg/dL (1.9-2.7); Sodium 140 mmol/L (135-145)
[2020-02-04 12:06] LABS: Troponin I 0.06 ng/mL (<0.03)
[2020-02-04] MEDS ORDERED: Magnesium Sulfate 2 gm BAG 2 GM/50 ML BAG IVPB ONE ×2 (12:29→17:28)
[2020-02-04] MEDS ORDERED: Diltiazem IV BAG D5W Premix 125 MG/125 ML BAG IV SCH (15:00)
[2020-02-04] MEDS ORDERED: Furosemide 40 mg/4 ml IV VIAL IV SLOW PU ONE (15:08)
[2020-02-04] MEDS ORDERED: Aspirin EC 81 mg TAB.EC (enteric coated) PO SCH (16:00)
[2020-02-04] MEDS: Aspirin EC 81 mg TAB.EC (enteric coated) PO SCH (17:07)
[2020-02-04 17:23] LABS: Anion Gap 8 mmol/L (2-11); BUN/Creatinine Ratio 15.6 (8-20); Blood Urea Nitrogen 22 mg/dL (6-24); CO2 Carbon Dioxide 29 mmol/L (22-32); Chloride 104 mmol/L (101-111); EGFR African American 60.5 (>60); Glucose 92 mg/dL (70-100); Sodium 141 mmol/L (135-145)
[2020-02-04 17:29] LABS: Troponin I 0.06 ng/mL (<0.03)
[2020-02-04] MEDS ORDERED: Furosemide 40 mg/4 ml IV VIAL IV ONE (17:29)
[2020-02-04] MEDS: Heparin 5000 UNITS/ML 1 mL VIAL SUBCUT SCH (20:51)
[2020-02-05] MEDS: Heparin 5000 UNITS/ML 1 mL VIAL SUBCUT SCH ×2 (05:28→14:59)
[2020-02-05 05:31] LABS: ABS Basophils 0.1 10^3/ul (0-0.2); ABS Eosinophils 0.3 10^3/ul (0-0.6); ABS Lymphocytes 1.4 10^3/ul (1.0-4.8); ABS Monocytes 0.5 10^3/ul (0-0.8); ABS Neutrophils 3.6 10^3/ul (1.5-7.7); Eosinophil % 4.6 %; Hematocrit 34 % (42-52); Hemoglobin 11.6 g/dL (14.0-18.0); Mean Corpuscular HGB Conc 34 g/dL (31-36); Mean Corpuscular Hemoglobin 31 pg (27-31); Mean Corpuscular Volume 91 fL (80-94); Mean Platelet Volume 7.5 fL (7.4-10.4); Platelet Count 256 10^3/uL (150-450); Red Blood Count 3.75 10^6 /uL (4.18-5.48); Red Cell Distribution Width 16 % (10-15); White Blood Count 5.8 10^3/uL (3.5-10.8)
[2020-02-05 05:48] LABS: BUN/Creatinine Ratio 18.5 (8-20); Calcium 8.7 mg/dL (8.6-10.3); EGFR African American 55.9 (>60); EGFR Non-African American 46.2 (>60); Magnesium 2.3 mg/dL (1.9-2.7); Potassium 4.3 mmol/L (3.5-5.0)
[2020-02-05] MEDS: Aspirin EC 81 mg TAB.EC (enteric coated) PO SCH (07:44)
[2020-02-05] MEDS ORDERED: Furosemide 20 mg/2 ml IV VIAL IV ONE (09:01)
[2020-02-05 12:10] VITALS: BP 127/72
== END 2020-02-05 15:45 | disposition home or self-care (01) ==
LOC: MEDTELE 10:39 → ED 10:39
PROVIDERS: ADMIT Internal Medicine; ATTEND Internal Medicine

== ENCOUNTER 2020-02-19 17:25 | Inpatient (IN) ==
[2020-02-19 21:47] LABS: ABS Eosinophils 0.1 10^3/ul (0-0.6); ABS Lymphocytes 1.3 10^3/ul (1.0-4.8); ABS Monocytes 0.6 10^3/ul (0-0.8); ABS Neutrophils 4.1 10^3/ul (1.5-7.7); Eosinophil % 1.3 %; Hematocrit 35 % (42-52); Hemoglobin 11.6 g/dL (14.0-18.0); Lymphocyte % 20.8 %; Mean Corpuscular HGB Conc 33 g/dL (31-36); Mean Corpuscular Hemoglobin 30 pg (27-31); Mean Corpuscular Volume 91 fL (80-94); Mean Platelet Volume 7.4 fL (7.4-10.4); Nucleated Red Blood Cells % 0.1; Platelet Count 232 10^3/uL (150-450); Red Cell Distribution Width 15 % (10-15); White Blood Count 6.1 10^3/uL (3.5-10.8)
[2020-02-19 21:56] LABS: INR 1.03 (0.82-1.09)
[2020-02-19 22:08] LABS: ALT 22 U/L (7-52); AST 28 U/L (13-39); Albumin 4.2 g/dL (3.2-5.2); Albumin/Globulin Ratio 1.4 (1-3); Alkaline Phosphatase 98 U/L (34-104); Anion Gap 6 mmol/L (2-11); BUN/Creatinine Ratio 25.5 (8-20); Blood Urea Nitrogen 51 mg/dL (6-24); CO2 Carbon Dioxide 30 mmol/L (22-32); Chloride 98 mmol/L (101-111); EGFR African American 40.4 (>60); EGFR Non-African American 33.4 (>60); Glucose 88 mg/dL (70-100); Magnesium 2.3 mg/dL (1.9-2.7); Potassium 4.2 mmol/L (3.5-5.0); Sodium 134 mmol/L (135-145); Total Protein 7.2 g/dL (6.4-8.9)
[2020-02-19 22:12] LABS: Troponin I 0.04 ng/mL (<0.03)
[2020-02-19 22:33] LABS: Alcohol, S < 10 mg/dL (<10)
[2020-02-19 22:49] LABS: TSH Ultra Thyroid Stim Horm 1.89 mcIU/mL (0.34-5.60)
[2020-02-19] MEDS ORDERED: Ondansetron 4 mg VIAL 2 MG/ML 2 ml VIAL IV PRN (23:42)
[2020-02-20 00:05] LABS: Valproic Acid < 13.0 mcg/mL (50-100)
[2020-02-20] MEDS: Enoxaparin 40 MG/0.4 ML SYR SUBCUT SCH ×2 (01:23→23:37)
[2020-02-20 01:28] LABS: Troponin I 0.05 ng/mL (<0.03)
[2020-02-20 02:16] LABS: Urine Appearance Clear; Urine Bilirubin Negative (Negative); Urine Blood Negative (Negative); Urine Color Yellow; Urine Glucose Negative (Negative); Urine Ketones Negative (Negative); Urine Nitrite Negative (Negative); Urine Protein Negative (Negative); Urine Specific Gravity 1.017 (1.010-1.030); Urine Urobilinogen Negative (Negative)
[2020-02-20 12:06] LABS: Troponin I 0.04 ng/mL (<0.03)
[2020-02-21 07:03] LABS: BUN/Creatinine Ratio 21.7 (8-20); Calcium 9.7 mg/dL (8.6-10.3); EGFR African American 59.5 (>60); EGFR Non-African American 49.2 (>60); Potassium 4.2 mmol/L (3.5-5.0)
[2020-02-21] MEDS: Enoxaparin 40 MG/0.4 ML SYR SUBCUT SCH (20:26)
[2020-02-22 06:45] LABS: BUN/Creatinine Ratio 19.9 (8-20); EGFR African American 60.5 (>60)
[2020-02-22] MEDS: Enoxaparin 40 MG/0.4 ML SYR SUBCUT SCH (22:00)
[2020-02-23 06:36] LABS: BUN/Creatinine Ratio 19.6 (8-20); EGFR African American 59.5 (>60); EGFR Non-African American 49.2 (>60); Magnesium 1.9 mg/dL (1.9-2.7); Potassium 4.2 mmol/L (3.5-5.0)
[2020-02-23] MEDS ORDERED: Magnesium Sulfate IV 1GM/100ML 1 GM/100 ML BAG IV ONE (08:00)
[2020-02-23 14:25] VITALS: BP 139/75
== END 2020-02-23 14:57 | disposition home health service (06) | DRG 641 ==
LOC: MEDTELE 17:25 → ED 17:25
PROVIDERS: ADMIT Internal Medicine; ATTEND Internal Medicine

== ENCOUNTER 2023-11-08 13:10 | Observation (INO) ==
[2023-11-08] MEDS: NS 0.9% 1000 ml BAG 1,000 ML IV ONE (14:07)
[2023-11-08 14:11] LABS: ABS Eosinophils 0.1 10^3/uL (0.0-0.5); ABS Lymphocytes 1.7 10^3/uL (1.0-4.8); ABS Monocytes 0.6 10^3/uL (0.0-1.1); ABS Neutrophils 4.3 10^3/uL (1.5-7.6); Eosinophil % 0.9 %; Hematocrit 41.2 % (38-53); Hemoglobin 13.9 g/dL (13.2-16.3); Lymphocyte % 25.6 %; Mean Corpuscular Hemoglobin 32.9 pg (27-33); Mean Corpuscular Hgb Conc 33.7 g/dL (31-36); Mean Corpuscular Volume 97.6 fL (80-97); Mean Platelet Volume 8.1 fL (7.5-11.2); Platelet Count 187 10^3/uL (150-450); Red Blood Count 4.22 10^6/uL (4.06-5.63); Red Cell Distribution Width 14.7 % (12-17); White Blood Count 6.7 10^3/uL (3.6-10.2)
[2023-11-08 14:55] LABS: Albumin 4.4 g/dL (3.2-5.2); Albumin/Globulin Ratio 1.4 (1-3); Calcium 9.8 mg/dL (8.6-10.3); Creatinine, Serum 1.63 mg/dL (0.67-1.17); Globulin 3.1 g/dL (2-4); Potassium 4.6 mmol/L (3.5-5.0); Total Protein 7.5 g/dL (6.4-8.9); eGFR CKD-EPI 44.5 (>60)
[2023-11-08] MEDS: Acetaminophen IV 1 GM/100ML 1,000 MG/100 ML BAG IV ONE (15:00)
[2023-11-08] MEDS: Iodixanol (CONTRAST) 320 MG/ML 100 ML SDV IV ONE (15:42)
[2023-11-08 15:43] LABS: High Sensitivity Troponin 1 Hr 58 pg/mL (<20)
[2023-11-08] MEDS: Furosemide 40 mg/4 ml IV VIAL IV SLOW PU ONE (16:14)
[2023-11-08] MEDS: Furosemide 20 mg/2 ml IV VIAL IV ONE (18:50)
[2023-11-08] MEDS: Lidocaine PATCH 5% PATCH TRANSDERM SCH (19:12)
[2023-11-08 20:41] LABS: TSH Ultra Thyroid Stim Horm 1.66 mcIU/mL (0.34-5.60)
[2023-11-08 20:48] LABS: Ferritin 57.1 ng/mL (24-336)
[2023-11-08] MEDS: Heparin 5000 UNITS/ML 1 mL VIAL SUBCUT SCH (22:15)
[2023-11-08] MEDS: oxyCODONE/Acetamin 5/325 mg TAB PO SCH (22:16)
[2023-11-09 05:38] LABS: ABS Eosinophils 0.2 10^3/uL (0.0-0.5); ABS Lymphocytes 1.5 10^3/uL (1.0-4.8); ABS Monocytes 0.5 10^3/uL (0.0-1.1); ABS Neutrophils 6.1 10^3/uL (1.5-7.6); ABS Nucleated RBC 0.01 10^3/ul; Eosinophil % 1.9 %; Hematocrit 43.2 % (38-53); Hemoglobin 14.2 g/dL (13.2-16.3); Lymphocyte % 18.1 %; Mean Corpuscular Hemoglobin 32.3 pg (27-33); Mean Corpuscular Hgb Conc 32.9 g/dL (31-36); Mean Corpuscular Volume 98.1 fL (80-97); Mean Platelet Volume 8.1 fL (7.5-11.2); Nucleated Red Blood Cells % 0.1 %/100WBC (0.0-0.8); Platelet Count 190 10^3/uL (150-450); Red Cell Distribution Width 14.7 % (12-17); White Blood Count 8.3 10^3/uL (3.6-10.2)
[2023-11-09 06:11] LABS: Calcium 9.3 mg/dL (8.6-10.3); Creatinine, Serum 1.69 mg/dL (0.67-1.17); Magnesium 2.2 mg/dL (1.9-2.7); eGFR CKD-EPI 42.6 (>60)
[2023-11-09] MEDS: Mometasone/Formoter 100/5 MDI INH SCH (07:52)
[2023-11-09] MEDS: Furosemide 40 mg/4 ml IV VIAL IV ONE (10:01)
[2023-11-09] MEDS ORDERED: Sulfur Hexaflouride MICROSPHR 25 MG VIAL ONE (10:03)
[2023-11-09] MEDS: Ferric Gluconate IV 250 MG in NS 0.9% 250 ml 200 ML IVPB SCH (11:26)
[2023-11-09] MEDS ORDERED: Metoprolol Tartrate 5 mg VIAL 5 ml VIAL (1 mg/ml) IV PRN ×2 (16:23→19:27)
[2023-11-10 07:33] LABS: Creatinine, Serum 1.33 mg/dL (0.67-1.17); Potassium 4.1 mmol/L (3.5-5.0); eGFR CKD-EPI 56.8 (>60)
[2023-11-10 10:38] VITALS: BP 92/67
== END 2023-11-10 14:00 | disposition home or self-care (01) ==
LOC: EDHOLD 13:10 → ED 13:10 → SUATTDRO 17:04 → EDHOLD 20:04 → MEDTELE 20:21
PROVIDERS: ADMIT Internal Medicine; ATTEND Hospitalist

== ENCOUNTER 2024-06-19 20:54 | Observation (INO) ==
[2024-06-19 23:34] LABS: ABS Basophils 0.1 10^3/uL (0.0-0.1); ABS Eosinophils 0.4 10^3/uL (0.0-0.5); ABS Monocytes 0.7 10^3/uL (0.0-1.1); ABS Neutrophils 3.9 10^3/uL (1.5-7.6); ABS Nucleated RBC 0.02 10^3/ul; Eosinophil % 6.2 %; Hemoglobin 14.6 g/dL (13.2-16.3); Lymphocyte % 16.7 %; Mean Corpuscular Hemoglobin 32.2 pg (27-33); Mean Corpuscular Hgb Conc 33.2 g/dL (31-36); Mean Corpuscular Volume 96.9 fL (80-97); Mean Platelet Volume 7.7 fL (7.5-11.2); Nucleated Red Blood Cells % 0.3 %/100WBC (0.0-0.8); Platelet Count 286 10^3/uL (150-450); Red Blood Count 4.54 10^6/uL (4.06-5.63); Red Cell Distribution Width 14.4 % (12-17); White Blood Count 5.9 10^3/uL (3.6-10.2)
[2024-06-20 00:07] LABS: Albumin 4.3 g/dL (3.5-5.7); Albumin/Globulin Ratio 1.3 (1-3); Calcium 9.8 mg/dL (8.6-10.3); Creatinine, Serum 1.78 mg/dL (0.67-1.17); Globulin 3.3 g/dL (2-4); Magnesium 2.2 mg/dL (1.9-2.7); Potassium 4.3 mmol/L (3.5-5.0); Total Bilirubin 0.6 mg/dL (0.2-1.0); Total Protein 7.6 g/dL (6.4-8.9)
[2024-06-20 00:13] LABS: Urine Appearance Clear; Urine Bacteria Absent /HPF (Absent); Urine Bilirubin Negative (Negative); Urine Blood Negative (Negative); Urine Color Yellow; Urine Glucose 4+ (>=1000 mg/dL) (Negative); Urine Ketones Negative (Negative); Urine Nitrite Negative (Negative); Urine Protein Trace (Negative); Urine Red Blood Cell Absent /HPF (0-Trace); Urine Squamous Epithelial Cell Present /HPF (Absent); Urine Urobilinogen Negative (Negative); Urine White Blood Cell 1+(6-10/hpf) /HPF (0-Trace); Urine pH 5.5 (5.0-8.0)
[2024-06-20 00:22] LABS: TSH Ultra Thyroid Stim Horm 3.24 mcIU/mL (0.34-5.60)
[2024-06-20 01:16] LABS: High Sensitivity Troponin 1 Hr 30 pg/mL (<20)
[2024-06-20] MEDS ORDERED: Sulfur Hexaflouride MICROSPHR 25 MG VIAL IV PRN (04:15)
[2024-06-20 04:52] LABS: ABS Eosinophils 0.4 10^3/uL (0.0-0.5); ABS Lymphocytes 1.3 10^3/uL (1.0-4.8); ABS Monocytes 0.6 10^3/uL (0.0-1.1); ABS Neutrophils 2.8 10^3/uL (1.5-7.6); Eosinophil % 8.1 %; Hemoglobin 13.9 g/dL (13.2-16.3); Lymphocyte % 25.5 %; Mean Corpuscular Hemoglobin 33.2 pg (27-33); Mean Corpuscular Hgb Conc 34.6 g/dL (31-36); Mean Corpuscular Volume 95.8 fL (80-97); Mean Platelet Volume 7.5 fL (7.5-11.2); Platelet Count 230 10^3/uL (150-450); Red Blood Count 4.18 10^6/uL (4.06-5.63); Red Cell Distribution Width 13.8 % (12-17); White Blood Count 5.1 10^3/uL (3.6-10.2)
[2024-06-20 05:42] LABS: Creatinine, Serum 1.58 mg/dL (0.67-1.17); Magnesium 2.2 mg/dL (1.9-2.7); Potassium 3.7 mmol/L (3.5-5.0); eGFR CKD-EPI 46.2 (>60)
[2024-06-20] MEDS: Enoxaparin 40 MG/0.4 ML SYR SUBCUT SCH (05:54)
[2024-06-20] MEDS: METHYLNALTREXONE 150 MG PO SCH (08:40)
[2024-06-20] MEDS: Mometasone/Formoter 100/5 MDI INH SCH (09:52)
[2024-06-20] MEDS: Iodixanol 320 (CONTRAST) 100 ML SDV IV ONE (11:38)
[2024-06-20 14:22] VITALS: BP 114/82
== END 2024-06-20 18:20 | disposition home or self-care (01) ==
LOC: EDHOLD 20:54 → ED 20:54 → MEDTELE 06-20 08:20
PROVIDERS: ADMIT Internal Medicine; ATTEND Internal Medicine